=== PATIENT | male | born 1950 | race Caucasian/White ===

== ENCOUNTER 2017-06-22 07:32 | Inpatient (IN) | payer OTHER, MEDICARE, SELFPAY ==
[2017-06-22] VITALS (17 sets, daily range): BP systolic 123–168; BP diastolic 59–125; PULSE 0–116; RESP 16–19; TEMP 36.9–37.3; O2SAT 93–99; BMI 31.8; BMI 30.3
--- NOTE | 2017-06-22 07:39 | CT_ITS ---
STUDY: CT BRAIN WITHOUT CONTRAST REASON FOR EXAM: Male, 67 years old. Right-sided deficits. Prior CVA. Not responsive. RADIATION DOSAGE (If Supplied By Facility): CTDIvol = ( 44.99 ) mGy, DLP = ( 1592.22 ) mGycm TECHNIQUE: Transaxial CT imaging of the brain was performed without administration of intravenous contrast material. Individualized dose optimization techniques were used for this CT. COMPARISON: Comparison is made with prior study dated January 22, 2017. FINDINGS: Normal soft tissue structures. Normal calvarium. There is mild cerebral atrophy with widening of the extra-axial spaces and ventricular dilatation. Stable encephalomalacia involving the left temporal frontal parietal lobes with some mild dilatation of the left ventricle due to the prior stroke and encephalomalacia. This is unchanged. No new abnormality is present. Normal basal ganglia and thalami. Normal brainstem. Normal cerebellum. There is no intracranial hemorrhage. There are no findings of an acute ischemic infarction. Normal visualized paranasal sinuses. CT/Brain/Head without Contrast IMPRESSION: Encephalomalacia involving the left frontal temporal parietal lobes. No acute abnormality is seen. Electronically Signed: Ottoniel Walls MD at 9:10 EST Tel [phone], Service support ,
--- NOTE | 2017-06-22 07:39 | EKG12_ITS ---
Test Reason : NEURO SYM Blood Pressure : / mmHG Vent. Rate : 120 BPM Atrial Rate : 120 BPM P-R Int : 156 ms QRS Dur : 074 ms QT Int : 328 ms P-R-T Axes : 056 039 080 degrees QTc Int : 463 ms Sinus tachycardia with frequent and consecutive Premature ventricular complexes in a pattern of bigem iny Low voltage QRS Abnormal ECG Confirmed by IZAIAH MILLAN, MURIEL ([id number]), website/blog editor RACHELLE PRAKASH ([id number]) on 06/23/2017 1:18:57 PM Referred By: BANDAR Confirmed By:MURIEL BLISS MD
--- NOTE | 2017-06-22 07:39 | RAD_ITS ---
STUDY: X-RAY CHEST REASON FOR EXAM: Male, 67 years old. Prior right-sided CVA. TECHNIQUE: Single AP portable view of the chest. COMPARISON: Comparison is made with prior study dated May 11, 2017. FINDINGS: EKG electrodes are seen. The lungs are clear and expanded. There is no demonstrated pleural abnormality. Normal size heart. Normal mediastinum and brittany. Normal visualized pulmonary arteries. There is atherosclerotic tortuosity of the aortic arch and descending thoracic aorta. There are diffuse degenerative changes of the visualized thoracic spine. Normal visualized ribs, clavicles, and shoulders. There is no demonstrated abnormality of the visualized soft tissue structures of the upper abdomen. RAD/Chest 1 View IMPRESSION: No acute abnormality is seen. Electronically Signed: Ottoniel Walls MD at 9:08 EST Tel [phone], Service support ,
[2017-06-22 07:41] LABS: Bedside Glucose 149 mg/dL (70-110)
[2017-06-22 08:27] LABS: Absolute Lymphocyte Count 1.94 X10^3/ul (0.83-4.51); Absolute Neutrophil Count 9.3 X10^3/uL (2.0-7.7); Basophil# 0.03 X10^3/uL; Basophil% 0.2 % (0-1); Eosinophil# 0.02 X10^3/uL; Eosinophils% 0.2 % (0-5); Hematocrit 43.2 % (40-54); Hemoglobin 14.2 g/dl (13.0-16.5); Lymphocyte # 1.94 X10^3/ul (4.0); Mean Corp Hgb Conc 32.9 g/gl (32-36); Mean Corpuscular Hgb 30.4 pg (27.0-32.0); Mean Corpuscular Volume 92.5 fL (80-94); Mean Platelet Vol. 9.8 fl (6.2-12.0); Monocyte# 0.84 X10^3/uL; Monocyte% 6.9 % (0-10); Neutrophil # 9.28 X10^3/uL (2.7-7.7); Neutrophil % 76.5 % (47-70); Platelet Count 257 K/mm3 (150-450); RBC Distribution Width CV 13.5 % (11.6-14.6); RBC Distribution Width SD 45.7 fl (35.1-43.9); Red Blood Count 4.67 M/mm3 (4.6-6.2); White Blood Count 12.1 K/mm3 (4.4-11.0)
--- NOTE | 2017-06-22 08:31 | ED.VISSUMM ---
- ER Visit Summary Date of Service: 06/22/17 Chief Complaint: New neurologic symptoms History of Present Illness: The patient is a 67 M who presents with questionable new neurologic symptoms. Patient has a history of a stroke and is nonverbal. He has complete flaccid weakness of his right hand side. alf staff noted that today he was having his eyes deviated to the right and that there may be some questionable left arm weakness. His left leg was also twitching. Patient does not contribute much of the history. While I am evaluating the patient he does move his left arm and left leg. Physical Examination: Vital signs are reviewed. HEENT exam reveals that his eyes are looking mostly to the right. However, nursing noted that at one point he did look to the left. He has moist mucous membranes. His pupils are equal. Neck is supple. Heart is tachycardic and regular with multiple PVCs. Lungs are clear to auscultation. Abdomen is soft and nontender. Extremities reveal no edema. Neurologic exam shows that he is nonverbal. He does not cooperate with the exam, mostly from not understanding my instructions. His right side is completely flaccid. He does move his left hand side extemporaneously but not on command. He does have some twitching on the left leg which does appear slightly purposeful. Test Results: EKG is sinus rhythm with many PVCs. Rate is approximately 120. Nonspecific ST-T wave changes noted. Chest x-ray reveals no acute findings. CAT scan of the head reveals encephalomalacia secondary to a stroke. White blood cell count 12.1, glucose 149, troponin normal. Urinalysis does reveal 2+ leukocytes and nitrites. Emergency Department Course and Treatment: Patient was hydrated with fluids and given morphine for pain. He was also given IV Rocephin for UTI Treatment Plan: Family is now at bedside and states that he is not acting normally. I feel that he is having delirium secondary to urinary tract infection. He will be started on antibiotics and admitted to the hospital Disposition: Admit Impression: UTI, delirium This note was generated with [employer] dictation software. It may contain incorrect words, spelling, and punctuation that were not noted in review of the chart prior to signing ED Disposition - Plan for ED Patient: Chief Complaint: Neuro S/Sx Referrals: Marcin Joseph MD [Primary Care Provider] -
[2017-06-22 08:34] LABS: POSITIVE COUNT NO; POSITIVE DIFFERENTIAL NO; POSITIVE MORPHOLOGY NO
--- NOTE | 2017-06-22 08:34 | NURSING ---
BLUE TOP HEMOLIZED
[2017-06-22 08:45] LABS: Anion Gap 10 (5-15); BUN 10 mg/dL (7-18); BUN/Creat Ratio 13.3 RATIO (10-20); Calcium,Total 9.2 mg/dL (8.5-10.1); Chloride 106 mmol/L (98-107); Creatinine, Serum 0.75 mg/dL (0.70-1.30); EST Glomerular Filtration Rate 111 mL/min (>60); Est Glom Filt Rate - Afr Amer 134 mL/min (>60); Estimated Creatinine Clearance 110.97 ml/min; Glucose 149 mg/dL (74-106); Potassium 3.7 mmol/L (3.5-5.1); Sodium Level 141 mmol/L (136-145)
--- NOTE | 2017-06-22 08:50 | ED.RN ---
PT IS UNABLE TO COMMUNICATE VERBALLY. PT ATTEMPTS SPEAKING BUT LANGUAGE IS GARBLED AND MUMBLED AND UNABLE TO BE UNDERSTOOD. PT UNDERSTANDS WAS IS BEING COMMUNICATED TO HIM AND FOLLOWS COMMANDS ABLE.
[2017-06-22 09:15] LABS: Prothrombin Time (Protime)PT. 13.1 SECONDS (11.7-14.9)
[2017-06-22 09:16] LABS: Partial Thromboplast Time 27.2 Seconds (24.1-36.2)
[2017-06-22 10:34] LABS: Color, Urine Yellow (Yellow); Glucose, Dipstick Normal (Normal); Ketone-Dipstick Negative (Negative); Leukocyte Esterase-Dipstick 500 /ul (Negative); Nitrite-Dipstick Positive (Negative); Occult Blood-Urine 50 /ul (Negative); Protein-Dipstick 15 mg/dl (Negative); Specific Gravity, Urine 1.015 (1.002-1.030); Urine Bilirubin Dipstick Negative (Negative); Urine Clarity Cloudy (Clear); Urine Urobilinogen Normal (Normal)
[2017-06-22 10:49] LABS: White Blood Cells >100 SEEN /hpf (0-5)
[2017-06-22 10:50] LABS: Bacteria 4+ /hpf (None Seen); Mucous, Urine 1+ /hpf (<or=2+); Red Blood Cells-Urine 0-5 SEEN /hpf (0-5); Squamous Epithelial Cells - UA 0-5 SEEN /hpf (0-5)
--- NOTE | 2017-06-22 11:04 | NURSING ---
HOSPITALIST FOR DR PORTILLO
--- NOTE | 2017-06-22 11:09 | NURSING ---
126 AMS, DEVIATED RT EYE, R/O STROKE ZACH
[2017-06-22] MEDS: 0.9% Normal Saline 1,000 ML 999 ML IV (11:23)
[2017-06-22] MEDS: Ceftriaxone 1 GM/50 mL Premix x1 IV (11:24)
--- NOTE | 2017-06-22 11:40 | MRI_ITS ---
STUDY: MRI BRAIN WITHOUT CONTRAST REASON FOR EXAM: Male, 67 years old. Mental status change. Probable CVA. TECHNIQUE: Standardized multiplanar fat and water weighted pulse sequences were obtained. COMPARISON: None. FINDINGS: There is mild cerebral atrophy with widening of the extra-axial spaces and moderate ventricular dilatation. There is encephalomalacia involving the left frontal and parietal lobes probably related to old infarct. There is also some encephalomalacia involving the left temporal lobe. There are multiple white matter hyperintensities, distributed throughout the deep white matter tracts of the cerebral hemispheres, consistent with moderate chronic white matter ischemic changes. There is abnormal signal in the left frontal and parietal lobe is probably related to gliosis. There are multiple foci of restricted diffusion within the right frontal and parietal lobes consistent with acute infarcts. These appear to occur in a watershed distribution between the right middle cerebral artery, right anterior cerebral and posterior cerebral arteries. There may also be some restricted diffusion in the left frontal lobe in the previous area of old infarct. Normal T2* images of the brain without demonstrated susceptibility artifact. There is no demonstrated hemosiderin stain. Normal bilateral basal ganglia. Normal thalami. There is no extra-axial fluid accumulation. There is absence of normal flow void within the left cavernous and petrous internal carotid artery suggesting sequela thrombosis. The right-sided cavernous and petrous internal carotid artery are patent. The visualized basilar artery and intracranial vertebral arteries are patent. Normal sella turcica, pituitary gland, infundibular stalk, optic chiasm and hypothalamus. Normal tectal plate and pineal gland. Normal midbrain, nano and medulla. Normal cerebellum. Normal basal cisterns. Normal bilateral temporal bones. Normal bilateral internal auditory canals. No demonstrated orbital abnormality, within the constraints of a routine brain study. Normal visualized paranasal sinuses. Normal calvarium and skull base. Normal visualized soft tissue structures. Normal visualized upper cervical spine. MRI/Brain without Contrast IMPRESSION: 1. Involutional changes of the brain, as described above. 2. Multiple bilateral acute infarcts. 3. Occlusion of left sided petrous and cavernous internal carotid arteries. N.B. : The above information has been verbally conveyed by Mable Karimi MD to Jyoti Platt, RN, Hospital- In-Patient RN, on 06/22/2017 17:37:51 (ET). Electronically Signed: Mable Karimi MD at 17:23 EST , Service support , N.B. : The above information has been verbally conveyed by Mable Karimi MD to Jyoti Platt, RN, Hospital- In-Patient RN, on 06/22/2017 17:37:51 (ET).
--- NOTE | 2017-06-22 12:22 | PCM.HP.STD ---
Problem List (1) Altered mental status, unspecified Status: Acute (2) UTI (urinary tract infection) Status: Acute (3) Chronic left arterial ischemic stroke, MCA (middle cerebral artery) Status: Chronic (4) Global aphasia Status: Chronic (5) Occlusion of left internal carotid artery Status: Chronic (6) Diabetes mellitus type 2 in obese Status: Chronic (7) Hypertension Status: Chronic (8) Hyperlipidemia Status: Chronic (9) Dysphagia Status: Chronic (10) Status post insertion of percutaneous endoscopic gastrostomy (PEG) tube Status: Chronic Comment: 01/[address] Duncan (11) Sleep-disordered breathing Status: Chronic (12) LVH (left ventricular hypertrophy) Status: Chronic (13) Diastolic dysfunction Status: Chronic (14) Influenza A Status: Resolved (15) Influenza B Status: Resolved History of Present Illness Date of Admission: 06/22/17 Chief Complaint: Altered mental status with right-sided deviated eye The patient is a 67 year old M with multiple comorbidities including recent CVA with right-sided weakness in January 2017 was brought in from SNF for altered mental status and eyes gaze was fixed to the right. As per EMS note, glucose was 145. Patient baseline is right-sided weakness, nonverbal noncommunicative. In ED, patient was found semi-above with left leg twitching. UA was positive of pyuria suggestive of UTI. Patient does not have a Mckeon catheter. No history of fever or chills. Patient was tachycardic [address] head shows increased inflammation involving the left frontal temporal parietal lobes but no acute abnormality. [] Past Medical History Past Medical History (Chronic Problems): Chronic Problems Chronic left arterial ischemic stroke, MCA (middle cerebral artery) (Chronic) Global aphasia (Chronic) Occlusion of left internal carotid artery (Chronic) Diabetes mellitus type 2 in obese (Chronic) Hypertension (Chronic) Hyperlipidemia (Chronic) Dysphagia (Chronic) 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 Duncan Sleep-disordered breathing (Chronic) LVH (left ventricular hypertrophy) (Chronic) Diastolic dysfunction (Chronic) Allergies No Known Allergies Allergy (Verified 07/12/13 19:10) Home Medications: Ambulatory Orders Medication Instructions Recorded Aspirin [Aspirin, Baby] 162 mg GT DAILY@0800 tab.chew 01/24/17 Atorvastatin Calcium [Lipitor] 80 mg GT QHS tablet 01/24/17 Acetaminophen 1,000 mg GT TID 05/11/17 Bisacodyl [Laxative Suppository] 10 mg RC DAILY PRN PRN 05/11/17 Gabapentin [Neurontin Solution] 300 mg GT TIDCM 05/11/17 Gemfibrozil [Lopid] 600 mg GT BIDAC 05/11/17 Magnesium Hydroxide [Milk of 30 ml PO DAILY PRN PRN 05/11/17 Magnesia] Mineral Oil 118 ml RC DAILY PRN PRN 05/11/17 Nut.tx.gluc.intoler,Lac-Fr,Soy 1 dose GT BID PRN PRN 05/11/17 [Glucerna 1.5 Juan] Surgical History: - - Patient has a midline incision and after speaking to the brother he has had an abdominal aortic aneurysm repair up at the [facility] in the remote past Psychiatric History: No pertinent psych hx Smoking Status: Never smoker - *Family History Maternal History Items: No pertinent history Paternal History Items: No pertinent history Review of Systems Constitutional: Reports: Weakness. Denies: Chills, Fever HEENT: Denies: Head Aches, Sinus Congestion, Sinus Drainage Cardiovascular: Denies: Chest Pain, Palpitations Respiratory: Denies: Cough, Shortness of breath at rest, Sputum production Gastrointestinal: Denies: Abdominal Pain, Nausea, Vomiting Genitourinary: Denies: Dysuria Skin: Denies: Rash, Wounds Neurological: Reports: Balance problems Psychiatric: Reports: Anxiety, Depression. Denies: Homicidal Ideations, Suicidal Ideations Hematologic/ Lymphatic: Denies: Easy Bruising, Easy Bleeding Unable to obtain accurate/complete ROS d/t: The patient is right-sided weakness and nonverbal as mentioned in HPI VTE Information - Inpt Only VTE Present on Admission: No VTE Mechan Device Prophylaxis: SCD's VTE Pharm Prophylaxis ordered?: Yes Patient Problems: Active and Suspected Problems Altered mental status, unspecified (Acute) UTI (urinary tract infection) (Acute) - Physical Exam General: Confused, Disoriented, Lethargic HEENT: Atraumatic, PERRLA, EOMI, Normocephalic Oral: Dry Mucosa Neck: Supple, No JVD, Negative Carotid Bruits Lungs: Clear to auscultation, No rhonchi, No wheeze, No rales, Diminished Cardiovascular: Normal S1, Normal S2, No murmurs, Irregular Rate, Tachycardic, - - EKG shows pulseless bigeminy Abdomen: Bowel Sounds Present, Soft, Non Tender Extremities: Capillary Refill Less than 3 Seconds, Edema Skin: No rashes, No breakdown Musculoskeletal: No Tenderness to Palpation of Joints or Extremities, Arthritic Changes, Muscle Wasting Neurological: Cranial nerves II-XII grossly intact, - - Right-sided weakness. Muscle rigidity and contractures in the right upper and lower extremity major joints. non Verbal/noncommunicative. Psych/Mental Status: Normal Affect, Appropriate Vital Signs Temp Pulse Resp BP Pulse Ox 98.8 F 100 16 168/86 H 93 06/22/17 11:53 06/22/17 11:53 06/22/17 11:53 06/22/17 11:53 06/22/17 11:53 Oxygen Delivery Method Room Air Weight: 228 lb 13.437 oz Body Mass Index (BMI) 30.3 Laboratory Tests Past 24 Hrs 06/22/17 11:55 Troponin I Pending TSH Pending Assessment/Plan Active and Suspected Problems Altered mental status, unspecified (Acute) UTI (urinary tract infection) (Acute) The patient is a 67 year old M with multiple comorbidities including recent CVA with right-sided weakness in January 2017 was brought in from SNF for altered mental status and eyes gaze was fixed to the right. As per EMS note, glucose was 145. Patient baseline is right-sided weakness, nonverbal noncommunicative. In ED, patient was found semi-above with left leg twitching. UA was positive of pyuria suggestive of UTI. Patient does not have a Mckeon catheter. No history of fever or chills. Patient was tachycardic [address] head shows increased inflammation involving the left frontal temporal parietal lobes but no acute abnormality. 1. Altered mental status, possible due to infectious/metabolic encephalopathy: The patient is being admitted on the monitored bed. MRI brain ordered to rule out any new stroke although clinical patient is very low. Neurology consult. On IV fluid normal saline. IV ceftriaxone. Neurology consult. Neurochecks. PT/OT and speech/swallow evaluation. Keep the patient n.p.o except medications. 2. SIRS (tachycardia and leukocytosis) possible related to sepsis due to UTI: Patient is started on IV ceftriaxone as mentioned above. Urine culture ordered. Lactic acid ordered. 3. Recent history of left ischemic, MCA stroke with right-sided deficit and aphasia: Patient has PEG tube. As per the family member, patient eats by mouth and you just picked to for medication. Carotid Doppler is ordered. 4. Diabetes mellitus type II in obese: Accu-Chek every 6 hourly with NovoLog sliding scale. A1c tomorrow a.m. Other chronic comorbidities include peripheral arterial disease, occlusion of left internal carotid artery, hypertension, dyslipidemia, dysphagia, PEG tube, possible obstructive sleep apnea, LVH, chronic diastolic heart failure: Patient had echo in January 2017 which shows mild concentric LVH, EF 65% with a stage I diastolic dysfunction. No regional wall motion abnormality. Normal size and systolic function of right ventricle. No interatrial shunt/PFO found. Advance CARE directives: Discussed with the patient's brother, Mr. Burke Blakely who is his legal guardian and power of document review attorney for health regarding advanced directive. Patient is not a living will but his brother has talked to him in the past and he wished DNR CC arrest with no artificial machine support or chest compression in case of cardiorespiratory arrest. He is good for oxygen through mask or BiPAP. About 20 minutes spent on the discussion regarding advanced care directive. Clinical Impression(s) from Imaging Studies Brain CT 06/22/17 07:39 IMPRESSION: Encephalomalacia involving the left frontal temporal parietal lobes. No acute abnormality is seen. Electronically Signed: Ottoniel Walls MD at 9:10 EST Tel [phone], Service support , Chest X-Ray 06/22/17 07:39 IMPRESSION: No acute abnormality is seen. Electronically Signed: Ottoniel Walls MD at 9:08 EST Tel [phone], Service support , Code Visit Inpatient E&M: 26068 Init Hosp L3 Procedures: 43440 Advncd Care Plan 30 Min
[2017-06-22 12:31] LABS: Thyroid Stim Hormone (TSH) 1.38 uIU/mL (0.358-3.74)
--- NOTE | 2017-06-22 12:41 | HP.PCM_ITS ---
Problem List (1) Altered mental status, unspecified Status: Acute (2) UTI (urinary tract infection) Status: Acute (3) Chronic left arterial ischemic stroke, MCA (middle cerebral artery) Status: Chronic (4) Global aphasia Status: Chronic (5) Occlusion of left internal carotid artery Status: Chronic (6) Diabetes mellitus type 2 in obese Status: Chronic (7) Hypertension Status: Chronic (8) Hyperlipidemia Status: Chronic (9) Dysphagia Status: Chronic (10) Status post insertion of percutaneous endoscopic gastrostomy (PEG) tube Status: Chronic Comment: 01/[address] Duncan (11) Sleep-disordered breathing Status: Chronic (12) LVH (left ventricular hypertrophy) Status: Chronic (13) Diastolic dysfunction Status: Chronic (14) Influenza A Status: Resolved (15) Influenza B Status: Resolved History of Present Illness Date of Admission: 06/22/17 Chief Complaint: Altered mental status with right-sided deviated eye The patient is a 67 year old M with multiple comorbidities including recent CVA with right-sided weakness in January 2017 was brought in from SNF for altered mental status and eyes gaze was fixed to the right. As per EMS note, glucose was 145. Patient baseline is right-sided weakness, nonverbal noncommunicative. In ED, patient was found semi-above with left leg twitching. UA was positive of pyuria suggestive of UTI. Patient does not have a Mckeon catheter. No history of fever or chills. Patient was tachycardic [address] head shows increased inflammation involving the left frontal temporal parietal lobes but no acute abnormality. [] Past Medical History Past Medical History (Chronic Problems): Chronic Problems Chronic left arterial ischemic stroke, MCA (middle cerebral artery) (Chronic) Global aphasia (Chronic) Occlusion of left internal carotid artery (Chronic) Diabetes mellitus type 2 in obese (Chronic) Hypertension (Chronic) Hyperlipidemia (Chronic) Dysphagia (Chronic) Status post insertion of percutaneous endoscopic gastrostomy (PEG) tube (Chronic ) 01/[address] Duncan Sleep-disordered breathing (Chronic) LVH (left ventricular hypertrophy) (Chronic) Diastolic dysfunction (Chronic) Allergies No Known Allergies Allergy (Verified 07/12/13 19:10) Home Medications: Ambulatory Orders Medication Instructions Recorded Aspirin [Aspirin, Baby] 162 mg GT DAILY@0800 tab.chew 01/24/17 Atorvastatin Calcium [Lipitor] 80 mg GT QHS tablet 01/24/17 Acetaminophen 1,000 mg GT TID 05/11/17 Bisacodyl [Laxative Suppository] 10 mg RC DAILY PRN PRN 05/11/17 Gabapentin [Neurontin Solution] 300 mg GT TIDCM 05/11/17 Gemfibrozil [Lopid] 600 mg GT BIDAC 05/11/17 Magnesium Hydroxide [Milk of 30 ml PO DAILY PRN PRN 05/11/17 Magnesia] Mineral Oil 118 ml RC DAILY PRN PRN 05/11/17 Nut.tx.gluc.intoler,Lac-Fr,Soy 1 dose GT BID PRN PRN 05/11/17 [Glucerna 1.5 Juan] Surgical History: - - Patient has a midline incision and after speaking to the brother he has had an abdominal aortic aneurysm repair up at the [facility] in the remote past Psychiatric History: No pertinent psych hx Smoking Status: Never smoker - *Family History Maternal History Items: No pertinent history Paternal History Items: No pertinent history Review of Systems Constitutional: Reports: Weakness. Denies: Chills, Fever HEENT: Denies: Head Aches, Sinus Congestion, Sinus Drainage Cardiovascular: Denies: Chest Pain, Palpitations Respiratory: Denies: Cough, Shortness of breath at rest, Sputum production Gastrointestinal: Denies: Abdominal Pain, Nausea, Vomiting Genitourinary: Denies: Dysuria Skin: Denies: Rash, Wounds Neurological: Reports: Balance problems Psychiatric: Reports: Anxiety, Depression. Denies: Homicidal Ideations, Suicidal Ideations Hematologic/ Lymphatic: Denies: Easy Bruising, Easy Bleeding Unable to obtain accurate/complete ROS d/t: The patient is right-sided weakness and nonverbal as mentioned in HPI VTE Information - Inpt Only VTE Present on Admission: No VTE Mechan Device Prophylaxis: SCD's VTE Pharm Prophylaxis ordered?: Yes Patient Problems: Active and Suspected Problems Altered mental status, unspecified (Acute) UTI (urinary tract infection) (Acute) - Physical Exam General: Confused, Disoriented, Lethargic HEENT: Atraumatic, PERRLA, EOMI, Normocephalic Oral: Dry Mucosa Neck: Supple, No JVD, Negative Carotid Bruits Lungs: Clear to auscultation, No rhonchi, No wheeze, No rales, Diminished Cardiovascular: Normal S1, Normal S2, No murmurs, Irregular Rate, Tachycardic, - - EKG shows pulseless bigeminy Abdomen: Bowel Sounds Present, Soft, Non Tender Extremities: Capillary Refill Less than 3 Seconds, Edema Skin: No rashes, No breakdown Musculoskeletal: No Tenderness to Palpation of Joints or Extremities, Arthritic Changes, Muscle Wasting Neurological: Cranial nerves II-XII grossly intact, - - Right-sided weakness. Muscle rigidity and contractures in the right upper and lower extremity major joints. non Verbal/noncommunicative. Psych/Mental Status: Normal Affect, Appropriate Vital Signs Temp Pulse Resp BP Pulse Ox 98.8 F 100 16 168/86 H 93 06/22/17 11:53 06/22/17 11:53 06/22/17 11:53 06/22/17 11:53 06/22/17 11:53 Oxygen Delivery Method Room Air Weight: 228 lb 13.437 oz Body Mass Index (BMI) 30.3 Laboratory Tests Past 24 Hrs 06/22/17 11:55 Troponin I Pending TSH Pending Assessment/Plan Active and Suspected Problems Altered mental status, unspecified (Acute) UTI (urinary tract infection) (Acute) The patient is a 67 year old M with multiple comorbidities including recent CVA with right-sided weakness in January 2017 was brought in from SNF for altered mental status and eyes gaze was fixed to the right. As per EMS note, glucose was 145. Patient baseline is right-sided weakness, nonverbal noncommunicative. In ED, patient was found semi-above with left leg twitching. UA was positive of pyuria suggestive of UTI. Patient does not have a Mckeon catheter. No history of fever or chills. Patient was tachycardic [address] head shows increased inflammation involving the left frontal temporal parietal lobes but no acute abnormality. 1. Altered mental status, possible due to infectious/metabolic encephalopathy: The patient is being admitted on the monitored bed. MRI brain ordered to rule out any new stroke although clinical patient is very low. Neurology consult. On IV fluid normal saline. IV ceftriaxone. Neurology consult. Neurochecks. PT/OT and speech/swallow evaluation. Keep the patient n.p.o except medications. 2. SIRS (tachycardia and leukocytosis) possible related to sepsis due to UTI: Patient is started on IV ceftriaxone as mentioned above. Urine culture ordered. Lactic acid ordered. 3. Recent history of left ischemic, MCA stroke with right-sided deficit and aphasia: Patient has PEG tube. As per the family member, patient eats by mouth and you just picked to for medication. Carotid Doppler is ordered. 4. Diabetes mellitus type II in obese: Accu-Chek every 6 hourly with NovoLog sliding scale. A1c tomorrow a.m. Other chronic comorbidities include peripheral arterial disease, occlusion of left internal carotid artery, hypertension, dyslipidemia, dysphagia, PEG tube, possible obstructive sleep apnea, LVH, chronic diastolic heart failure: Patient had echo in January 2017 which shows mild concentric LVH, EF 65% with a stage I diastolic dysfunction. No regional wall motion abnormality. Normal size and systolic function of right ventricle. No interatrial shunt/PFO found. Advance CARE directives: Discussed with the patient's brother, Mr. Burke Blakely who is his legal guardian and power of sports attorney for health regarding advanced directive. Patient is not a living will but his brother has talked to him in the past and he wished DNR CC arrest with no artificial machine support or chest compression in case of cardiorespiratory arrest. He is good for oxygen through mask or BiPAP. About 20 minutes spent on the discussion regarding advanced care directive. Clinical Impression(s) from Imaging Studies Brain CT 06/22/17 07:39 IMPRESSION: Encephalomalacia involving the left frontal temporal parietal lobes. No acute abnormality is seen. Electronically Signed: Ottoniel Walls MD at 9:10 EST Tel [phone], Service support , Chest X-Ray 06/22/17 07:39 IMPRESSION: No acute abnormality is seen. Electronically Signed: Ottoniel Walls MD at 9:08 EST Tel [phone], Service support , Code Visit Inpatient E&M: 51908 Init Hosp L3 Procedures: 52406 Advncd Care Plan 30 Min
[2017-06-22] MEDS: Atorvastatin Calcium 80 MG Tablet GT (13:53)
[2017-06-22] MEDS: Aspirin 300 MG Suppository RECTAL (13:53)
[2017-06-22] MEDS: Enoxaparin 40 MG/0.4 ML Syringe SC (13:53)
[2017-06-22] MEDS: 0.9% Normal Saline 1,000 ML 100 ML IV ×2 (13:54→22:27)
[2017-06-22 14:16] LABS: Bedside Glucose 128 mg/dL (70-110)
[2017-06-22] MEDS: LORazepam 2 MG/ML Syringe 1 MG IV (15:30)
--- NOTE | 2017-06-22 15:42 | CHAPLAIN ---
patient and bed were out of the room; left a calling card
--- NOTE | 2017-06-22 16:07 | CASEMGMT ---
Social Work Notified that pt was admitted from [place]. Pt currently out of the room. Phone call placed to pt brother who states d/c plan is for pt to return to [place]. SW will continue to follow for SNF placement. CAREN Cadena
--- NOTE | 2017-06-22 16:30 | CON.PCM_ITS ---
Problem List (1) Altered mental status, unspecified Status: Acute Qualifiers: Altered mental status type: unspecified Qualified Code(s): R41.82 - Altered mental status, unspecified Reason for Consult Date of Consultation: 06/22/17 Reason for Consultation: AMS History of Present Illness: The patient is a 67 year old CM NHR with PMH HTN. HLD, DM, recent Left MCA stroke with Left ICA occlusion with residual right sided weakness, global aphasia, NIMO , recent hospitalization with influenza admitted with AMS. History is obtained from medical records and documentation. History could not be obtained from the patient due to global aphasia. Per documentation patient is being admitted with AMS, was found to have right sided eye deviation, per ED documentation he was told to have left arm weakness and left leg twitching per NH. At present there is no documentation of KNOWLES, fever, new onset focal motor weakness or sensory loss. Found to have UTI on admission. [] Past Medical History Past Medical History (Chronic Problems): Chronic Problems Chronic left arterial ischemic stroke, MCA (middle cerebral artery) (Chronic) Global aphasia (Chronic) Occlusion of left internal carotid artery (Chronic) Diabetes mellitus type 2 in obese (Chronic) Hypertension (Chronic) Hyperlipidemia (Chronic) Dysphagia (Chronic) Status post insertion of percutaneous endoscopic gastrostomy (PEG) tube (Chronic ) 01/[address] Duncan Sleep-disordered breathing (Chronic) LVH (left ventricular hypertrophy) (Chronic) Diastolic dysfunction (Chronic) Allergies No Known Allergies Allergy (Verified 07/12/13 19:10) Home Medications: Ambulatory Orders Medication Instructions Recorded Aspirin [Aspirin, Baby] 162 mg GT DAILY@0800 tab.chew 01/24/17 Atorvastatin Calcium [Lipitor] 80 mg GT QHS tablet 01/24/17 Acetaminophen 1,000 mg GT TID 05/11/17 Bisacodyl [Laxative Suppository] 10 mg RC DAILY PRN PRN 05/11/17 Gabapentin [Neurontin Solution] 300 mg GT TIDCM 05/11/17 Gemfibrozil [Lopid] 600 mg GT BIDAC 05/11/17 Magnesium Hydroxide [Milk of 30 ml PO DAILY PRN PRN 05/11/17 Magnesia] Mineral Oil 118 ml RC DAILY PRN PRN 05/11/17 Nut.tx.gluc.intoler,Lac-Fr,Soy 1 dose GT BID PRN PRN 05/11/17 [Glucerna 1.5 Juan] Surgical History: - - Patient has a midline incision and after speaking to the brother he has had an abdominal aortic aneurysm repair up at the [facility] in the remote past Psychiatric History: No pertinent psych hx Smoking Status: Former smoker - *Family History Maternal History Items: No pertinent history Paternal History Items: No pertinent history Review of Systems Constitutional: Reports: - - could not be obtained since patient has global aphasia - Physical Exam General: - - awake HEENT: Atraumatic, PERRLA, EOMI, Normocephalic Neck: Supple, No JVD, Negative Carotid Bruits Lungs: Clear to auscultation, Normal air movement Cardiovascular: Regular rate Abdomen: Bowel Sounds Present, Soft, Non Tender Extremities: No edema, Capillary Refill Less than 3 Seconds Musculoskeletal: No Tenderness to Palpation of Joints or Extremities Neurological: - - awake, with global aphasia, limited Neurology examination, right gaze preference, pupils BERL, moves Left UE/LE spontaneuously, right UE/ LE flaccid, Plantars Right extensor/left flexor, sensory/cerebellar/gait could not be assessed, Reflexes + B/L B/S/T/K/A. Psych/Mental Status: - - could not be assessed Vital Signs Temp Pulse Resp BP Pulse Ox 98.6 F 64 18 152/78 H 97 06/22/17 13:39 06/22/17 13:39 06/22/17 13:39 06/22/17 13:39 06/22/17 13:39 Oxygen Flow Rate 2 Oxygen Delivery Method Nasal Cannula Weight: 103.8 kg Body Mass Index (BMI) 30.3 Intake and Output for Last 24 Hours 06/20/17 06/21/17 06/22/17 23:59 23:59 23:59 Intake Total 0 / 0 Balance 0 / 0 Laboratory Tests Past 24 Hrs 06/22/17 11:55 Troponin I 0.02 TSH 1.38 POC Glucose 06/22/17 14:02 POC Glucose 128 H Assessment/Plan The patient is a 67 year old CM NHR with PMH HTN. HLD, DM, recent Left MCA stroke with Left ICA occlusion with residual right sided weakness, global aphasia, NIMO , recent hospitalization with influenza admitted with AMS. History is obtained from medical records and documentation. History could not be obtained from the patient due to global aphasia. Per documentation patient is being admitted with AMS, was found to have right sided eye deviation, per ED documentation he was told to have left arm weakness and left leg twitching per NH. At present there is no documentation of KNOWLES, fever, new onset focal motor weakness or sensory loss. Found to have UTI on admission. Impression Metabolic Encephalopathy R/O Right MCA stroke R/O seizures Plan -On ASA and Lipitor -Recommend loading with Keppra 1 g IV once then start Keppra 750 mg BID -Await MRI brain -If MRI brain shows stroke, then will do stroke w/u -Recommend EEG -Avoid hypotension -Further UTI management per primary team -GI/DVT prophylaxis -PT/OT/ST -Please call with questions if any -Thank you for allowing us to participate in patients care and management I spent 60 minutes taking history, doing physical examination, reviewing medical records, as well as coordinating care Code Visit Inpatient E&M: 61768 Init Hosp L3
[2017-06-22 18:01] LABS: Bedside Glucose 122 mg/dL (70-110)
--- NOTE | 2017-06-22 18:12 | CT_ITS ---
STUDY: CTA OF THE BRAIN REASON FOR EXAM: Male, 67 years old. CVA RADIATION DOSAGE (If Supplied By Facility): CTDIvol = ( 22.61 ) mGy, DLP = ( 748.46 ) mGycm TECHNIQUE: CT angiography was performed with a multi-detector CT scanner. Data acquisition was obtained from the skull base through the vertex following intravenous administration of ml of . MIP images were reconstructed from the axial data set. Post-processing of the angiographic images was performed, with multiplanar reformation and 3D reconstruction. Individualized dose optimization techniques were used for this CT. COMPARISON: None. FINDINGS: Normal right petrous carotid. Nonvisualization of left petrous consistent with proximal occlusion. Normal right cavernous carotid artery with a normal supraclinoid bifurcation. Apparent occlusion or high-grade stenosis of the left cavernous carotid artery with a reconstituted supraclinoid bifurcation. Normal right A1 segments of the anterior cerebral artery. Normal left A1 segments of the anterior cerebral artery. Anterior communicating artery not visualized consistent with normal variant. Normal bilateral A2 segments of the anterior cerebral arteries. Normal right M1 and M2 segments of the middle cerebral arteries, with a normal M1 bifurcation. High-grade stenosis of the proximal left M1 with reduced flow in the M2 segment and nonvisualization of the main sylvian branch however there does appear to be small perisylvian branches likely due to collateral circulation Posterior communicating arteries are not visualized consistent with normal developmental variant. Normal bilateral vertebral arteries. Normal basilar artery with a normal basilar bifurcation. The visualized bilateral superior cerebellar (SCA) arteries are normal. Normal bilateral P1, P2 and visualized P3 segments of the posterior cerebral arteries. There is no demonstrated aneurysm of the mo[place] of [place]. There is no demonstrated abnormality of the visualized brain. CT/CTA Head W/WO Contrast IMPRESSION: High-grade segmental stenosis of the proximal M1 segment of the left middle cerebral artery with reduced flow in the M2 and sylvian branches Other findings as above Electronically Signed: Percy Guzman MD at 21:57 EST , Service support ,
--- NOTE | 2017-06-22 18:12 | CT_ITS ---
CTA head and Neck WO/W Contrast INDICATION: CVA, CHRONIC MCA INFARCT COMPARISON: None TECHNIQUE: High-resolution axial CT imaging of the head and neck during intravenous contrast administration, CTA protocol. Coronal, sagittal, MIP reformatted images are obtained. Radiation dose of dilatation technique and NASCET criteria are applied. 100 mL of Isovue-370 were given intravenously. FINDINGS: CTA neck: There is soft and calcific arteriosclerotic plaque formation and the aortic arch. There is normal origin of the great vessels from the aortic arch. The common carotid arteries are normal and symmetric. There is predominantly soft arteriosclerotic plaque formation noted at the carotid bifurcations with short segment high-grade stenosis at the origin of the right internal carotid artery with caliber of the proximal right internal carotid artery at its origin of less than 1 mm. There is complete occlusion of the left internal carotid artery from its origin. Posterior circulation demonstrates codominant vertebral arteries and normal confluence to the basilar artery. CTA head: There is no significant enhancement in the left cavernous carotid artery. There is reconstitution of flow at the supraclinoid portion of the left internal carotid artery with symmetric supply to the anterior cerebral arteries. Supply to the left middle cerebral artery and its branching vessels is thready with evidence of a large left MCA territory encephalomalacia. There is no significant arteriosclerotic plaque or luminal narrowing at the right cavernous carotid artery and normal supply to the right middle cerebral artery and its branching vessels. The basilar artery is unremarkable and gives rise to both posterior cerebral arteries. IMPRESSION: Complete occlusion of the left internal carotid artery from its origin. Short segment high-grade stenosis/near complete occlusion at the origin of the right internal carotid artery. Interventional/surgical consultation recommended. Thready flow in the left middle cerebral artery and branching vessels associated with large left MCA territory infarct. at 2031 Reported and signed by: Alana Ortiz MD N.B. : The above information has been verbally conveyed by Alana Ortiz MD to Meka Mueller, EVITA, Hospital- In-Patient RN, on 06/22/2017 20:46:09 (ET). Electronically Signed: Alana Ortiz MD at 19:29 EST Tel , Service support , CTA head and Neck WO/W Contrast INDICATION: CVA, CHRONIC MCA INFARCT COMPARISON: None TECHNIQUE: High-resolution axial CT imaging of the head and neck during intravenous contrast administration, CTA protocol. Coronal, sagittal, MIP reformatted images are obtained. Radiation dose of dilatation technique and NASCET criteria are applied. 100 mL of Isovue-370 were given intravenously. FINDINGS: CTA neck: There is soft and calcific arteriosclerotic plaque formation and the aortic arch. There is normal origin of the great vessels from the aortic arch. The common carotid arteries are normal and symmetric. There is predominantly soft arteriosclerotic plaque formation noted at the carotid bifurcations with short segment high-grade stenosis at the origin of the right internal carotid artery with caliber of the proximal right internal carotid artery at its origin of less than 1 mm. There is complete occlusion of the left internal carotid artery from its origin. Posterior circulation demonstrates codominant vertebral arteries and normal confluence to the basilar artery. CTA head: There is no significant enhancement in the left cavernous carotid artery. There is reconstitution of flow at the supraclinoid portion of the left internal carotid artery with symmetric supply to the anterior cerebral arteries. Supply to the left middle cerebral artery and its branching vessels is thready with evidence of a large left MCA territory encephalomalacia. There is no significant arteriosclerotic plaque or luminal narrowing at the right cavernous carotid artery and normal supply to the right middle cerebral artery and its branching vessels. The basilar artery is unremarkable and gives rise to both posterior cerebral arteries. CT/CTA Neck W/WO Contrast IMPRESSION: Complete occlusion of the left internal carotid artery from its origin. Short segment high-grade stenosis/near complete occlusion at the origin of the right internal carotid artery. Interventional/surgical consultation recommended. Thready flow in the left middle cerebral artery and branching vessels associated with large left MCA territory infarct. at 2031 Reported and signed by: Alana Ortiz MD N.B. : The above information has been verbally conveyed by Alana Ortiz MD to Meka Ervin, RN, Hospital- In-Patient RN, on 06/22/2017 20:46:09 (ET). Electronically Signed: Alana Ortiz MD at 19:29 EST Tel , Service support , N.B. : The above information has been verbally conveyed by Alana Ortiz MD to Meka Mueller, RN, Hospital- In-Patient RN, on 06/22/2017 20:46:09 (ET).
[2017-06-22] MEDS: Clopidogrel Bisulfate 75 MG Tablet GT (19:06)
--- NOTE | 2017-06-22 21:00 | NURSING ---
2100 [facility] UNABLE TO ASSES MANY OF THE RICHARDSON DUE TO PATIENTS LACK OF RESPONSE. PT RESPONDS ONLY MILDLY TO STIMULATION OF PAIN WITH SENSATION WITH FEET.
[2017-06-22 22:51] LABS: Bedside Glucose 133 mg/dL (70-110)
[2017-06-23] VITALS (10 sets, daily range): BP systolic 112–147; BP diastolic 10–100; PULSE 81–106; RESP 16–18; TEMP 36.7–37.2; O2SAT 94–98
--- NOTE | 2017-06-23 05:19 | NURSING ---
Pt using left arm and left leg in sleep. However, still not arousable. Unable to assess eyes at all. Pt will not open or keep open. Only rousable to painful stimuli.
[2017-06-23 05:57] LABS: Absolute Lymphocyte Count 2.18 X10^3/ul (0.83-4.51); Absolute Neutrophil Count 6.1 X10^3/uL (2.0-7.7); Basophil# 0.04 X10^3/uL; Basophil% 0.4 % (0-1); Eosinophil# 0.05 X10^3/uL; Eosinophils% 0.5 % (0-5); Hematocrit 40.8 % (40-54); Hemoglobin 13.6 g/dl (13.0-16.5); Lymphocyte # 2.18 X10^3/ul (4.0); Lymphocyte % 23.1 % (19-41); Mean Corp Hgb Conc 33.3 g/gl (32-36); Mean Corpuscular Hgb 31.2 pg (27.0-32.0); Mean Corpuscular Volume 93.6 fL (80-94); Mean Platelet Vol. 9.8 fl (6.2-12.0); Monocyte# 1.02 X10^3/uL; Monocyte% 10.8 % (0-10); Neutrophil # 6.12 X10^3/uL (2.7-7.7); Platelet Count 273 K/mm3 (150-450); RBC Distribution Width CV 13.5 % (11.6-14.6); RBC Distribution Width SD 44.9 fl (35.1-43.9); Red Blood Count 4.36 M/mm3 (4.6-6.2); White Blood Count 9.4 K/mm3 (4.4-11.0)
[2017-06-23 05:58] LABS: POSITIVE COUNT NO; POSITIVE DIFFERENTIAL NO; POSITIVE MORPHOLOGY NO
[2017-06-23] MEDS: Enoxaparin 40 MG/0.4 ML Syringe SC (06:01)
[2017-06-23 06:14] LABS: Anion Gap 8 (5-15); BUN 7 mg/dL (7-18); BUN/Creat Ratio 10.1 RATIO (10-20); Calcium,Total 8.7 mg/dL (8.5-10.1); Chloride 107 mmol/L (98-107); Cholesterol 203 mg/dL (200); Creatinine, Serum 0.69 mg/dL (0.70-1.30); EST Glomerular Filtration Rate 122 mL/min (>60); Est Glom Filt Rate - Afr Amer 148 mL/min (>60); Estimated Creatinine Clearance 117.15 ml/min; Glucose 145 mg/dL (74-106); High Density Lipoprotein 34 mg/dL; Sodium Level 143 mmol/L (136-145); Triglycerides 202 mg/dL; Very Low Density Lipoprotein 40 mg/dL (5-40)
[2017-06-23] MEDS: 0.9% Normal Saline 1,000 ML 100 ML IV (06:25)
[2017-06-23 07:05] LABS: Bedside Glucose 75 mg/dL (70-110)
[2017-06-23 08:08] LABS: Hemoglobin A1c 7.3 % (4.2-6.3)
[2017-06-23] MEDS: Aspirin 325 MG Tablet GT (08:31)
--- NOTE | 2017-06-23 08:38 | PCM.PN.HOSP ---
Subjective: Seen and examined. Patient is still confused, disoriented,; semi-conscious; not opening eyes. Patient also sometimes have involuntary movement of lower extremities Vitals/I&O's: Vital Signs Temp Pulse Resp BP Pulse Ox 98.7 F 94 18 134/100 H 98 06/23/17 08:05 06/23/17 08:05 06/23/17 08:05 06/23/17 08:05 06/23/17 08:05 Oxygen Flow Rate 2 Oxygen Delivery Method Nasal Cannula Weight: 228 lb 13.437 oz Body Mass Index (BMI) 30.3 Intake and Output for Last 24 Hours 06/21/17 06/22/17 06/23/17 23:59 23:59 23:59 Intake Total 362 / 362 1191 / 1191 Balance 362 / 362 1191 / 1191 General: Lethargic, - - Eyes closed.; Semi-conscious HEENT: PERRLA, Normocephalic, - - Pupils seem slightly dilated Oral: Dry Mucosa Neck: Supple, No JVD, Negative Carotid Bruits Lungs: No rhonchi, Diminished, - - Coarse upper resp wheezing sound Cardiovascular: Regular rate, Normal S1, Normal S2, No murmurs, Irregular Rate, - - Multiple PVCs Abdomen: Bowel Sounds Present, Soft, Non Tender Extremities: Edema Musculoskeletal: Arthritic Changes, Muscle Wasting Neurological: - - Muscle rigidity present on the bilateral lower extremities, more on right lower extremity. Plantar reflex equivocal. Bilateral knees jerk; hyper 3+/4 Laboratory Results 06/22/17 11:55: Troponin I 0.02, TSH 1.38 06/22/17 14:02: POC Glucose 128 H 06/22/17 17:37: POC Glucose 122 H 06/22/17 22:20: POC Glucose 133 H 06/23/17 05:39: Sodium 143, Potassium 4.0, Chloride 107, Carbon Dioxide 28.0, Anion Gap 8, BUN 7, Creatinine 0.69 L, Estim Creat Clear Calc 117.15, Est GFR (MDRD) Af Amer 148, Est GFR (MDRD) Non-Af 122, BUN/Creatinine Ratio 10.1, Glucose 145 H, Calcium 8.7, Triglycerides 202 H, Cholesterol 203 H, LDL Cholesterol 129, VLDL Cholesterol 40, HDL Cholesterol 34 L 06/23/17 05:39: WBC 9.4, RBC 4.36 L, Hgb 13.6, Hct 40.8, MCV 93.6, MCH 31.2, MCHC 33.3, RDW 13.5, RDW Differential 44.9 H, Plt Count 273, MPV 9.8, Immature Gran % (Auto) 0.200, Neut % (Auto) 65.0, Lymph % (Auto) 23.1, [place] % (Auto) 10.8 H, Eos % (Auto) 0.5, Baso % (Auto) 0.4, Absolute Neuts (auto) 6.1, Absolute Lymphs (auto) 2.18, Total Counted Not Reportable 06/23/17 05:39: Hemoglobin A1c 7.3 H 06/23/17 06:23: POC Glucose 75 Current Medications Aspirin (Aspirin) 325 mg GT DAILY@0800 REPLACED BY [facility] Atorvastatin Calcium (Lipitor) 80 mg GT DAILY REPLACED BY [facility] Last Admin: 06/22/17 13:53 Dose: 80 mg Clopidogrel Bisulfate (Plavix) 75 mg GT DAILY REPLACED BY [facility] Last Admin: 06/22/17 19:06 Dose: 75 mg Dextrose (D50w Syringe) 0 gm IV X1 PRN; Protocol PRN Reason: Hypoglycemia Enoxaparin Sodium (Lovenox) 40 mg SC DAILY@0600 REPLACED BY [facility] Last Admin: 06/23/17 06:01 Dose: 40 mg Glucagon () 1 mg IM .X1 PRN PRN Reason: Hypoglycemia Sodium Chloride () 1,000 mls @ 100 mls/hr IV .Q10H REPLACED BY [facility] Last Admin: 06/23/17 06:25 Dose: 100 mls/hr Ceftriaxone Sodium (Rocephin) 1 gm in 50 mls @ 100 mls/hr IV DAILY REPLACED BY [facility] Levetiracetam 750 mg/ N/A 150 mls @ 600 mls/hr IV Q12 REPLACED BY [facility] Last Admin: 06/22/17 22:27 Dose: 600 mls/hr Insulin Aspart (Novolog Flexpen (Bkc)) 0 units SC Q6 [facility] PRN Reason: Protocol Last Admin: 06/23/17 06:37 Dose: Not Given Morphine Sulfate (Morphine) 2 mg IV Q4H PRN PRN PRN Reason: SEVERE PAIN (6-10/10) Last Admin: 06/22/17 14:45 Dose: 2 mg Sodium Chloride () 5 - 30 ml IV UD PRN PRN Reason: SALINE FLUSH Assessment/Plan The patient is a 67 year old M with multiple comorbidities including recent CVA with right-sided weakness in January 2017 was brought in from SNF for altered mental status and eyes gaze was fixed to the right. As per EMS note, glucose was 145. Patient baseline is right-sided weakness, nonverbal noncommunicative. In ED, patient was found semi-above with left leg twitching. UA was positive of pyuria suggestive of UTI. Patient does not have a Mckeon catheter. No history of fever or chills. Patient was tachycardic [address] head shows increased inflammation involving the left frontal temporal parietal lobes but no acute abnormality. 1. Altered mental status, multifactorial from large stroke/infectious, metabolic encephalopathy with question of possible seizure in view of previous large left ischemic infarct: The patient is being admitted on the monitored bed. MRI brain reported as multiple bilateral acute infarct with near complete occlusion of left ICA and occlusion of left-sided petrous and cavernous part of ICA. CT angiogram of brain shows High-grade segmental stenosis of the proximal M1 segment of the left middle cerebral artery with reduced flow in the M2 and sylvian branches. Neurology consult appreciated and discussed. Earlier, the neurologist advised ARLENE but patient seems very high risk sedation as the patient has decreased awareness/alertness, lethargic and semi-conscious and seems would likely need to be intubated for ARLENE and further on ventilator but later on it was concluded that she does not need it.. In meantime, continue aspirin, Plavix, atorvastatin and other medications. PT/OT and speech/swallow evaluation. Keep the patient n.p.o except medications. 2. SIRS (tachycardia and leukocytosis) possible related to sepsis due to UTI: Patient is started on IV ceftriaxone as mentioned above. Urine culture ordered. Lactic acid ordered. 3. Recent history of left ischemic, MCA stroke with right-sided deficit and aphasia: Patient has PEG tube. As per the family member, patient eats by mouth and you just picked to for medication. Carotid Doppler is ordered. 4. Diabetes mellitus type II in obese: Accu-Chek every 6 hourly with NovoLog sliding scale. A1c tomorrow a.m. Other chronic comorbidities include peripheral arterial disease, occlusion of left internal carotid artery, hypertension, dyslipidemia, dysphagia, PEG tube, possible obstructive sleep apnea, LVH, chronic diastolic heart failure: Patient had echo in January 2017 which shows mild concentric LVH, EF 65% with a stage I diastolic dysfunction. No regional wall motion abnormality. Normal size and systolic function of right ventricle. No interatrial shunt/PFO found. Advance CARE directives: Discussed with the patient's brother, Mr. Burke Blakely who is his legal guardian and power of collections attorney for health regarding advanced directive. Patient is not a living will but his brother has talked to him in the past and he wished DNR CC arrest with no artificial machine support or chest compression in case of cardiorespiratory arrest. He is good for oxygen through mask or BiPAP. Clinical Impression(s) from Imaging Studies Brain CT 06/22/17 07:39 IMPRESSION: Encephalomalacia involving the left frontal temporal parietal lobes. No acute abnormality is seen. Brain MRI 06/22/17 11:40 IMPRESSION: 1. Involutional changes of the brain, as described above. 2. Multiple bilateral acute infarcts. 3. Occlusion of left sided petrous and cavernous internal carotid arteries. Head CTA 06/22/17 18:12 IMPRESSION: High-grade segmental stenosis of the proximal M1 segment of the left middle cerebral artery with reduced flow in the M2 and sylvian branches Other findings as above Electronically Signed: Percy Guzman MD at 21:57 EST , Service support , Neck CTA 06/22/17 18:12 IMPRESSION: Complete occlusion of the left internal carotid artery from its origin. Short segment high-grade stenosis/near complete occlusion at the origin of the right internal carotid artery. Interventional/surgical consultation recommended. Thready flow in the left middle cerebral artery and branching vessels associated with large left MCA territory infarct. Laboratory Results 06/22/17 09:00: PT 13.1, INR 1.0, APTT 27.2 06/22/17 10:10: Urine Color Yellow, Urine Clarity Cloudy, Urine pH 5.0, Ur Specific [place] 1.015, Urine Protein 15 H, Urine Glucose (UA) Normal, Urine Ketones Negative, Urine Occult Blood 50 H, Urine Nitrite Positive H, Urine Bilirubin Negative, Urine Urobilinogen Normal, Ur Leukocyte Esterase 500 H, Urine RBC 0-5 SEEN, Urine WBC >100 SEEN, Ur Squamous Epith Cells 0-5 SEEN, Urine Bacteria 4+, Urine Mucus 1+ 06/22/17 11:55: Troponin I 0.02, TSH 1.38 06/22/17 14:02: POC Glucose 128 H 06/22/17 17:37: POC Glucose 122 H 06/22/17 22:20: POC Glucose 133 H 06/23/17 05:39: Sodium 143, Potassium 4.0, Chloride 107, Carbon Dioxide 28.0, Anion Gap 8, BUN 7, Creatinine 0.69 L, Estim Creat Clear Calc 117.15, Est GFR (MDRD) Af Amer 148, Est GFR (MDRD) Non-Af 122, BUN/Creatinine Ratio 10.1, Glucose 145 H, Calcium 8.7, Triglycerides 202 H, Cholesterol 203 H, LDL Cholesterol 129, VLDL Cholesterol 40, HDL Cholesterol 34 L 06/23/17 05:39: WBC 9.4, RBC 4.36 L, Hgb 13.6, Hct 40.8, MCV 93.6, MCH 31.2, MCHC 33.3, RDW 13.5, RDW Differential 44.9 H, Plt Count 273, MPV 9.8, Immature Gran % (Auto) 0.200, Neut % (Auto) 65.0, Lymph % (Auto) 23.1, [place] % (Auto) 10.8 H, Eos % (Auto) 0.5, Baso % (Auto) 0.4, Absolute Neuts (auto) 6.1, Absolute Lymphs (auto) 2.18, Total Counted Not Reportable 06/23/17 05:39: Hemoglobin A1c 7.3 H 06/23/17 06:23: POC Glucose 75
--- NOTE | 2017-06-23 09:04 | PN_ITS ---
Subjective: Seen and examined. Patient is still confused, disoriented,; semi-conscious; not opening eyes. Patient also sometimes have involuntary movement of lower extremities Vitals/I&O's: Vital Signs Temp Pulse Resp BP Pulse Ox 98.7 F 94 18 134/100 H 98 06/23/17 08:05 06/23/17 08:05 06/23/17 08:05 06/23/17 08:05 06/23/17 08:05 Oxygen Flow Rate 2 Oxygen Delivery Method Nasal Cannula Weight: 228 lb 13.437 oz Body Mass Index (BMI) 30.3 Intake and Output for Last 24 Hours 06/21/17 06/22/17 06/23/17 23:59 23:59 23:59 Intake Total 362 / 362 1191 / 1191 Balance 362 / 362 1191 / 1191 General: Lethargic, - - Eyes closed.; Semi-conscious HEENT: PERRLA, Normocephalic, - - Pupils seem slightly dilated Oral: Dry Mucosa Neck: Supple, No JVD, Negative Carotid Bruits Lungs: No rhonchi, Diminished, - - Coarse upper resp wheezing sound Cardiovascular: Regular rate, Normal S1, Normal S2, No murmurs, Irregular Rate, - - Multiple PVCs Abdomen: Bowel Sounds Present, Soft, Non Tender Extremities: Edema Musculoskeletal: Arthritic Changes, Muscle Wasting Neurological: - - Muscle rigidity present on the bilateral lower extremities, more on right lower extremity. Plantar reflex equivocal. Bilateral knees jerk; hyper 3+/4 Laboratory Results 06/22/17 11:55: Troponin I 0.02, TSH 1.38 06/22/17 14:02: POC Glucose 128 H 06/22/17 17:37: POC Glucose 122 H 06/22/17 22:20: POC Glucose 133 H 06/23/17 05:39: Sodium 143, Potassium 4.0, Chloride 107, Carbon Dioxide 28.0, Anion Gap 8, BUN 7, Creatinine 0.69 L, Estim Creat Clear Calc 117.15, Est GFR ( MDRD) Af Amer 148, Est GFR (MDRD) Non-Af 122, BUN/Creatinine Ratio 10.1, Glucose 145 H, Calcium 8.7, Triglycerides 202 H, Cholesterol 203 H, LDL Cholesterol 129, VLDL Cholesterol 40, HDL Cholesterol 34 L 06/23/17 05:39: WBC 9.4, RBC 4.36 L, Hgb 13.6, Hct 40.8, MCV 93.6, MCH 31.2, MCHC 33.3, RDW 13.5, RDW Differential 44.9 H, Plt Count 273, MPV 9.8, Immature Gran % (Auto) 0.200, Neut % (Auto) 65.0, Lymph % (Auto) 23.1, [place] % (Auto) 10.8 H, Eos % (Auto) 0.5, Baso % (Auto) 0.4, Absolute Neuts (auto) 6.1, Absolute Lymphs (auto) 2.18, Total Counted Not Reportable 06/23/17 05:39: Hemoglobin A1c 7.3 H 06/23/17 06:23: POC Glucose 75 Current Medications Aspirin (Aspirin) 325 mg GT DAILY@0800 [facility] Atorvastatin Calcium (Lipitor) 80 mg GT DAILY [facility] Last Admin: 06/22/17 13:53 Dose: 80 mg Clopidogrel Bisulfate (Plavix) 75 mg GT DAILY [facility] Last Admin: 06/22/17 19:06 Dose: 75 mg Dextrose (D50w Syringe) 0 gm IV X1 PRN; Protocol PRN Reason: Hypoglycemia Enoxaparin Sodium (Lovenox) 40 mg SC DAILY@0600 [facility] Last Admin: 06/23/17 06:01 Dose: 40 mg Glucagon () 1 mg IM .X1 PRN PRN Reason: Hypoglycemia Sodium Chloride () 1,000 mls @ 100 mls/hr IV .Q10H [facility] Last Admin: 06/23/17 06:25 Dose: 100 mls/hr Ceftriaxone Sodium (Rocephin) 1 gm in 50 mls @ 100 mls/hr IV DAILY [facility] Levetiracetam 750 mg/ N/A 150 mls @ 600 mls/hr IV Q12 [facility] Last Admin: 06/22/17 22:27 Dose: 600 mls/hr Insulin Aspart (Novolog Flexpen (Bkc)) 0 units SC Q6 [facility] PRN Reason: Protocol Last Admin: 06/23/17 06:37 Dose: Not Given Morphine Sulfate (Morphine) 2 mg IV Q4H PRN PRN PRN Reason: SEVERE PAIN (6-10/10) Last Admin: 06/22/17 14:45 Dose: 2 mg Sodium Chloride () 5 - 30 ml IV UD PRN PRN Reason: SALINE FLUSH Assessment/Plan The patient is a 67 year old M with multiple comorbidities including recent CVA with right-sided weakness in January 2017 was brought in from SNF for altered mental status and eyes gaze was fixed to the right. As per EMS note, glucose was 145. Patient baseline is right-sided weakness, nonverbal noncommunicative. In ED, patient was found semi-above with left leg twitching. UA was positive of pyuria suggestive of UTI. Patient does not have a Mckeon catheter. No history of fever or chills. Patient was tachycardic [address] head shows increased inflammation involving the left frontal temporal parietal lobes but no acute abnormality. 1. Altered mental status, multifactorial from large stroke/infectious, metabolic encephalopathy with question of possible seizure in view of previous large left ischemic infarct: The patient is being admitted on the monitored bed. MRI brain reported as multiple bilateral acute infarct with near complete occlusion of left ICA and occlusion of left-sided petrous and cavernous part of ICA. CT angiogram of brain shows High-grade segmental stenosis of the proximal M1 segment of the left middle cerebral artery with reduced flow in the M2 and sylvian branches. Neurology consult appreciated and discussed. Earlier, the neurologist advised ARLENE but patient seems very high risk sedation as the patient has decreased awareness/alertness, lethargic and semi-conscious and seems would likely need to be intubated for ARLENE and further on ventilator but later on it was concluded that she does not need it.. In meantime, continue aspirin, Plavix, atorvastatin and other medications. PT/OT and speech/swallow evaluation. Keep the patient n.p.o except medications. 2. SIRS (tachycardia and leukocytosis) possible related to sepsis due to UTI: Patient is started on IV ceftriaxone as mentioned above. Urine culture ordered. Lactic acid ordered. 3. Recent history of left ischemic, MCA stroke with right-sided deficit and aphasia: Patient has PEG tube. As per the family member, patient eats by mouth and you just picked to for medication. Carotid Doppler is ordered. 4. Diabetes mellitus type II in obese: Accu-Chek every 6 hourly with NovoLog sliding scale. A1c tomorrow a.m. Other chronic comorbidities include peripheral arterial disease, occlusion of left internal carotid artery, hypertension, dyslipidemia, dysphagia, PEG tube, possible obstructive sleep apnea, LVH, chronic diastolic heart failure: Patient had echo in January 2017 which shows mild concentric LVH, EF 65% with a stage I diastolic dysfunction. No regional wall motion abnormality. Normal size and systolic function of right ventricle. No interatrial shunt/PFO found. Advance CARE directives: Discussed with the patient's brother, Mr. Burke Blakely who is his legal guardian and power of student loan counselor for health regarding advanced directive. Patient is not a living will but his brother has talked to him in the past and he wished DNR CC arrest with no artificial machine support or chest compression in case of cardiorespiratory arrest. He is good for oxygen through mask or BiPAP. Clinical Impression(s) from Imaging Studies Brain CT 06/22/17 07:39 IMPRESSION: Encephalomalacia involving the left frontal temporal parietal lobes. No acute abnormality is seen. Brain MRI 06/22/17 11:40 IMPRESSION: 1. Involutional changes of the brain, as described above. 2. Multiple bilateral acute infarcts. 3. Occlusion of left sided petrous and cavernous internal carotid arteries. Head CTA 06/22/17 18:12 IMPRESSION: High-grade segmental stenosis of the proximal M1 segment of the left middle cerebral artery with reduced flow in the M2 and sylvian branches Other findings as above Electronically Signed: Percy Guzman MD at 21:57 EST , Service support , Neck CTA 06/22/17 18:12 IMPRESSION: Complete occlusion of the left internal carotid artery from its origin. Short segment high-grade stenosis/near complete occlusion at the origin of the right internal carotid artery. Interventional/surgical consultation recommended. Thready flow in the left middle cerebral artery and branching vessels associated with large left MCA territory infarct. Laboratory Results 06/22/17 09:00: PT 13.1, INR 1.0, APTT 27.2 06/22/17 10:10: Urine Color Yellow, Urine Clarity Cloudy, Urine pH 5.0, Ur Specific [place] 1.015, Urine Protein 15 H, Urine Glucose (UA) Normal, Urine Ketones Negative, Urine Occult Blood 50 H, Urine Nitrite Positive H, Urine Bilirubin Negative, Urine Urobilinogen Normal, Ur Leukocyte Esterase 500 H, Urine RBC 0-5 SEEN, Urine WBC >100 SEEN, Ur Squamous Epith Cells 0-5 SEEN, Urine Bacteria 4+, Urine Mucus 1+ 06/22/17 11:55: Troponin I 0.02, TSH 1.38 06/22/17 14:02: POC Glucose 128 H 06/22/17 17:37: POC Glucose 122 H 06/22/17 22:20: POC Glucose 133 H 06/23/17 05:39: Sodium 143, Potassium 4.0, Chloride 107, Carbon Dioxide 28.0, Anion Gap 8, BUN 7, Creatinine 0.69 L, Estim Creat Clear Calc 117.15, Est GFR ( MDRD) Af Amer 148, Est GFR (MDRD) Non-Af 122, BUN/Creatinine Ratio 10.1, Glucose 145 H, Calcium 8.7, Triglycerides 202 H, Cholesterol 203 H, LDL Cholesterol 129, VLDL Cholesterol 40, HDL Cholesterol 34 L 06/23/17 05:39: WBC 9.4, RBC 4.36 L, Hgb 13.6, Hct 40.8, MCV 93.6, MCH 31.2, MCHC 33.3, RDW 13.5, RDW Differential 44.9 H, Plt Count 273, MPV 9.8, Immature Gran % (Auto) 0.200, Neut % (Auto) 65.0, Lymph % (Auto) 23.1, [place] % (Auto) 10.8 H, Eos % (Auto) 0.5, Baso % (Auto) 0.4, Absolute Neuts (auto) 6.1, Absolute Lymphs (auto) 2.18, Total Counted Not Reportable 06/23/17 05:39: Hemoglobin A1c 7.3 H 06/23/17 06:23: POC Glucose 75
--- NOTE | 2017-06-23 09:20 | CASEMGMT ---
Addendum entered by Chiqui Razo 06/23/17 11:34: JUDY called Jennifer at [facility] and let her know patient has been accepted at [facility] and they have a bed for him. JUDY told her he is leaving today. Chiqui ISIDRO Original Note: Addendum entered by Chiqui Razo 06/23/17 10:49: SW spoke with Jennifer at [facility] and let her know that physician is looking to transfer patient to [facility]. SW will let her know when he is transferred. Chiqui ISIDRO Original Note: JUDY faxed updates to [facility]. SW to follow for d/c back to [facility] when ready. Chiqui ISIDRO
[2017-06-23] MEDS: Clopidogrel Bisulfate 75 MG Tablet GT (10:57)
[2017-06-23] MEDS: Atorvastatin Calcium 80 MG Tablet GT (10:58)
[2017-06-23] MEDS: Ceftriaxone 1 GM/50 ML BAG IV (11:19)
[2017-06-23] MEDS: 0.9% NaCl Peripheral Flush Adult/Peds IV (11:20)
--- NOTE | 2017-06-23 11:25 | NURSING ---
report given to kaye sherwood and [facility] neuro ICU
[2017-06-23 12:06] LABS: Bedside Glucose 125 mg/dL (70-110)
--- NOTE | 2017-06-23 12:11 | EEG ---
- Electroencephalogram Date of Service: 06/23/17 History EEG is being done in this 67 yr M to rule out seizures EEG Description: This is an 18 channel EEG with 10-20 lead placement system. Bipolar montages, Referential and Circumferential montages were reviewed. Photic stimulation was performed but Hyperventilation was performed to patient's mental status change. The posterior dominant background rhythm was not present. Photo stimulation elicited normal driving response but no abnormal photoparoxysmal response, Hyperventilation was not performed. There is generalized background slowing in the delta frequency of about 3-4 Hz. Sleep was not identified. There was no epileptiform discharges or electrographic seizures noted during this recording. EEG Interpretation This is an abnormal EEG due to the presence of severe generalized slowing. This can be seen in generalized cerebral dysfunction like metabolic/toxic encephalopathy. Clinical correlation is advised. There is no epileptiform discharges or electrographic seizures noted during the record.
--- NOTE | 2017-06-23 12:56 | PN.NEURO_ITS ---
Subjective: No issues overnight per documentation but at present patient seems to be more lethargic than yesterday and continues to be altered. MRI brain reported to show embolic right MCA stroke, and some possible left MCA stroke, along with watershed infarcts in the left [employer]/MCA and Left CHARIS/MCA region, CTA head/neck reported to show left ICA occlusion with left M1 critical stenosis and right ICA critical stenosis - Physical Exam General: - - lethargic HEENT: Atraumatic, PERRLA, Normocephalic Neck: Supple, No JVD Lungs: Clear to auscultation Cardiovascular: Regular rate Abdomen: Bowel Sounds Present, Soft, Non Tender Extremities: No edema Neurological: - - drowsy, with global aphasia, limited Neurology examination, does not follow any VC at present, pupils BERL, right UE/LE flaccid, Plantars Right extensor/left flexor, sensory/cerebellar/gait could not be assessed, Reflexes + B/L B/S/T/K/A. Vital Signs Temp Pulse Resp BP Pulse Ox 98.5 F 82 16 143/100 H 94 06/23/17 10:07 06/23/17 11:33 06/23/17 11:33 06/23/17 10:07 06/23/17 11:33 Oxygen Flow Rate 2 Oxygen Delivery Method Nasal Cannula Weight: 103.8 kg Body Mass Index (BMI) 30.3 Intake and Output for Last 24 Hours 06/21/17 06/22/17 06/23/17 23:59 23:59 23:59 Intake Total 362 / 362 1191 / 1191 Balance 362 / 362 1191 / 1191 Microbiology Past 72 Hours 06/22/17 13:20 Urine Culture - Final Urine, Catheterized Gram negative sarina Laboratory Tests Past 24 Hrs 06/23/17 06/23/17 06/23/17 05:39 05:39 05:39 WBC 9.4 RBC 4.36 L Hgb 13.6 Hct 40.8 MCV 93.6 MCH 31.2 MCHC 33.3 RDW 13.5 RDW Differential 44.9 H Plt Count 273 MPV 9.8 Immature Gran % (Auto) 0.200 Neut % (Auto) 65.0 Lymph % (Auto) 23.1 [place] % (Auto) 10.8 H Eos % (Auto) 0.5 Baso % (Auto) 0.4 Absolute Neuts (auto) 6.1 Absolute Lymphs (auto) 2.18 Total Counted Not Reportable Sodium 143 Potassium 4.0 Chloride 107 Carbon Dioxide 28.0 Anion Gap 8 BUN 7 Creatinine 0.69 L Estim Creat Clear Calc 117.15 Est GFR (MDRD) Af Amer 148 Est GFR (MDRD) Non-Af 122 BUN/Creatinine Ratio 10.1 Glucose 145 H Hemoglobin A1c 7.3 H Calcium 8.7 Triglycerides 202 H Cholesterol 203 H LDL Cholesterol 129 VLDL Cholesterol 40 HDL Cholesterol 34 L POC Glucose 06/23/17 06/23/17 06/22/17 12:02 06:23 22:20 POC Glucose 125 H 75 133 H 06/22/17 06/22/17 17:37 14:02 POC Glucose 122 H 128 H Assessment/Plan The patient is a 67 year old CM NHR with PMH HTN. HLD, DM, recent Left MCA stroke with Left ICA occlusion with residual right sided weakness, global aphasia, NIMO , recent hospitalization with influenza admitted with AMS. History is obtained from medical records and documentation. History could not be obtained from the patient due to global aphasia. Per documentation patient is being admitted with AMS, was found to have right sided eye deviation, per ED documentation he was told to have left arm weakness and left leg twitching per NH. At present there is no documentation of KNOWLES, fever, new onset focal motor weakness or sensory loss. Found to have UTI on admission. Impression Metabolic Encephalopathy Bilateral MCA athero-embolic stroke along with watershed infarcts in the left [employer] MARK[employer]/MCA and Left CHARIS/MCA region Left ICA occlusion, Left M1 high grade stenosis and Right ICA high grade stenosis seizures Plan -On ASA, Plavix and Lipitor -On Keppra 750 mg BID -MRI brain and CTA head/neck images reviewed -EEG-severe generalized slowing -Avoid hypotension -Patient to be transferred to [facility] for further intervention evaluation, for possible right carotid stenting -Prognosis guarded -Further UTI management per primary team -GI/DVT prophylaxis -PT/OT/ST -Please call with questions if any -Thank you for allowing us to participate in patients care and management I spent 30 minutes taking history, doing physical examination, reviewing medical records, as well as coordinating care
--- NOTE | 2017-06-23 15:38 | PCM.DC.SUM ---
Discharge Date and Diagnosis Date of Admission: 06/22/17 Date of Discharge: 06/23/17 - Primary Discharge Diagnosis 1. Altered mental status, suggestive of acute encephalopathy, multifactorial from large acute B/L atheroembolic stroke, patient has/metabolic encephalopathy with question of possible seizure in view of previous large left ischemic infarct: 2. Bilateral MCA atheroembolic a stroke along with watershed infarct in left PAPER SLITTER/MCA and left CHARIS/MCA region. Left total ICA occlusion, left M1 high-grade stenosis right ICA high-grade stenosis. Possible seizure: Unable to determine acuity and type of seizure on EEG was done. EEG does not show any epileptiform discharge but shows generalized slowing, severe in degree suggestive of generalized cerebral dysfunction likely metabolic/toxic encephalopathy. SIRS (tachycardia and leukocytosis) possible related to sepsis due to partially treated UTI: Urine culture came as gram-negative sarina less than 1000; suggestive of partially treated UTI. urine culture was drawn after ceftriaxone was given. Recent history of left ischemic, MCA stroke in January 2017 with right-sided deficit and aphasia: - Secondary Discharge Diagnosis Chronic Problems Chronic left arterial ischemic stroke, MCA (middle cerebral artery) (Chronic) Global aphasia (Chronic) Occlusion of left internal carotid artery (Chronic) Diabetes mellitus type 2 in obese (Chronic) Hypertension (Chronic) Hyperlipidemia (Chronic) Dysphagia (Chronic) 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 Duncan Sleep-disordered breathing (Chronic) LVH (left ventricular hypertrophy) (Chronic) Diastolic dysfunction (Chronic) Hospital Course and Treatment Operations: None Summary of Care Provided: [] The patient is a 67 year old M with multiple comorbidities including recent CVA with right-sided weakness in January 2017 was brought in from SNF for altered mental status and eyes gaze was fixed to the right. As per EMS note, glucose was 145. Patient baseline is right-sided weakness, nonverbal noncommunicative. In ED, patient was found semi-above with left leg twitching. UA was positive of pyuria suggestive of UTI. Patient does not have a Mckeon catheter. No history of fever or chills. Patient was tachycardic [address] head shows increased inflammation involving the left frontal temporal parietal lobes but no acute abnormality. 1. Altered mental status, multifactorial from large acute B/L atheroembolic stroke, patient has/metabolic encephalopathy with question of possible seizure in view of previous large left ischemic infarct: The patient is being admitted on the monitored bed. MRI brain reported as multiple bilateral acute infarct with near complete occlusion of left ICA and occlusion of left-sided petrous and cavernous part of ICA. CT angiogram of brain shows High-grade segmental stenosis of the proximal M1 segment of the left middle cerebral artery with reduced flow in the M2 and sylvian branches. CT angiogram of neck shows complete occlusion of left internal carotid artery and short segment high-grade stenosis/near complete occlusion at the origin of the right internal carotid artery. Interventional/surgical consultation recommended. Neurology consult appreciated and discussed. Initially the neurologist advised ARLENE but but after further review of CT angiogram of head and neck, it was determined that he is throwing emboli from bilateral internal carotid artery rather than cardiac in origin. Patient also seems very high risk sedation as the patient has decreased awareness/alertness, lethargic and semi-conscious and seems would likely need to be intubated for ARLENE and further on ventilator. In meantime, continue aspirin, Plavix, atorvastatin and other medications. PT/OT and speech/swallow evaluation. Keep the patient n.p.o except medications. 2. Bilateral MCA atheroembolic stroke along with watershed infarct in left PAPER SLITTER/MCA and left CHARIS/MCA region. Left total ICA occlusion, left M1 high-grade stenosis right ICA high-grade stenosis. It was determined that patient does not need ARLENE but tertiary care for right internal carotid artery stenting. This was discussed with the patient's brother Mr. Burke Blakely who wanted to be transferred to [facility] for the above procedure. Transfer line of [facility] called and patient was accepted in the neuro ICU under Dr. Medina. Patient was transferred to [facility]. Possible seizure: Unable to determine acuity and type of seizure on EEG was done. EEG does not show any epileptiform discharge but shows generalized slowing, severe in degree suggestive of generalized cerebral dysfunction likely metabolic/toxic encephalopathy. 2. SIRS (tachycardia and leukocytosis) possible related to sepsis due to UTI: Patient is started on IV ceftriaxone as mentioned above. Urine culture came as gram-negative sarina less than 1000; suggestive of partially treated UTI. urine culture was drawn after ceftriaxone was given. 3. Recent history of left ischemic, MCA stroke with right-sided deficit and aphasia: Patient has PEG tube. As per the family member, patient eats by mouth and you just picked to for medication. Carotid Doppler is ordered. 4. Diabetes mellitus type II in obese: Accu-Chek every 6 hourly with NovoLog sliding scale. A1c 7.3. Other chronic comorbidities include peripheral arterial disease, occlusion of left internal carotid artery, hypertension, dyslipidemia, dysphagia, PEG tube, possible obstructive sleep apnea, LVH, chronic diastolic heart failure: Patient had echo in January 2017 which shows mild concentric LVH, EF 65% with a stage I diastolic dysfunction. No regional wall motion abnormality. Normal size and systolic function of right ventricle. No interatrial shunt/PFO found. Advance CARE directives: Discussed with the patient's brother, Mr. Burke Blakely who is his legal guardian and power of claim attorney for health regarding advanced directive. Patient is not a living will but his brother has talked to him in the past and he wished DNR CC arrest with no artificial machine support or chest compression in case of cardiorespiratory arrest. He is good for oxygen through mask or BiPAP. More than 45 minutes spent in the transfer process including discussion with the patient's family member, his brother who is the power of claim attorney and discussion with other consultants and attending in [facility] Clinical Impression(s) from Imaging Studies Brain MRI 06/22/17 11:40 IMPRESSION: 1. Involutional changes of the brain, as described above. 2. Multiple bilateral acute infarcts. 3. Occlusion of left sided petrous and cavernous internal carotid arteries. Head CTA 06/22/17 18:12 IMPRESSION: High-grade segmental stenosis of the proximal M1 segment of the left middle cerebral artery with reduced flow in the M2 and sylvian branches Other findings as above Neck CTA 06/22/17 18:12 IMPRESSION: Complete occlusion of the left internal carotid artery from its origin. Short segment high-grade stenosis/near complete occlusion at the origin of the right internal carotid artery. Interventional/surgical consultation recommended. Thready flow in the left middle cerebral artery and branching vessels associated with large left MCA territory infarct. Home Medications: Medications to take at Discharge Aspirin [Aspirin, Baby] 162 mg GT DAILY@0800 tab.chew 01/24/17 Atorvastatin Calcium [Lipitor] 80 mg GT QHS tablet 01/24/17 Acetaminophen 1,000 mg GT TID 05/11/17 Bisacodyl [Laxative Suppository] 10 mg RC DAILY PRN PRN 05/11/17 Gabapentin [Neurontin Solution] 300 mg GT TIDCM 05/11/17 Gemfibrozil [Lopid] 600 mg GT BIDAC 05/11/17 Magnesium Hydroxide [Milk of Magnesia] 30 ml PO DAILY PRN PRN 05/11/17 Mineral Oil 118 ml RC DAILY PRN PRN 05/11/17 Nut.tx.gluc.intoler,Lac-Fr,Soy [Glucerna 1.5 Juan] 1 dose GT BID PRN PRN 05/11/17 Primary Care Physician: Marcin Joseph MD [Primary Care Provider] - Meaningful Use Info Meaningful Use Diagnoses (Choose all that apply): Ischemic CVA - CVA Therapy Assessed for PT,OT and/or ST?: Yes - Ischemic Stroke Antithrombotic order at d/c?: Yes Dx of Atrial fib/flutter?: No Anticoagulant at discharge?: Yes Statins at discharge?: Yes Primary Dx Acute Ischemic CVA?: Yes IV tPA ordered during stay?: No Reason IV t-PA not ordered: Procedure not Indicated - Time of onset unclear Code Visit Inpatient E&M: 73843 Disch Hosp
--- NOTE | 2017-06-23 15:51 | DS.PCM_ITS ---
Discharge Date and Diagnosis Date of Admission: 06/22/17 Date of Discharge: 06/23/17 - Primary Discharge Diagnosis 1. Altered mental status, suggestive of acute encephalopathy, multifactorial from large acute B/L atheroembolic stroke, patient has/metabolic encephalopathy with question of possible seizure in view of previous large left ischemic infarct: 2. Bilateral MCA atheroembolic a stroke along with watershed infarct in left REPAIR SPECIALIST/MCA and left CHARIS/MCA region. Left total ICA occlusion, left M1 high-grade stenosis right ICA high-grade stenosis. Possible seizure: Unable to determine acuity and type of seizure on EEG was done. EEG does not show any epileptiform discharge but shows generalized slowing, severe in degree suggestive of generalized cerebral dysfunction likely metabolic/toxic encephalopathy. SIRS (tachycardia and leukocytosis) possible related to sepsis due to partially treated UTI: Urine culture came as gram-negative sarina less than 1000; suggestive of partially treated UTI. urine culture was drawn after ceftriaxone was given. Recent history of left ischemic, MCA stroke in January 2017 with right- sided deficit and aphasia: - Secondary Discharge Diagnosis Chronic Problems Chronic left arterial ischemic stroke, MCA (middle cerebral artery) (Chronic) Global aphasia (Chronic) Occlusion of left internal carotid artery (Chronic) Diabetes mellitus type 2 in obese (Chronic) Hypertension (Chronic) Hyperlipidemia (Chronic) Dysphagia (Chronic) Status post insertion of percutaneous endoscopic gastrostomy (PEG) tube (Chronic ) 01/[address] Duncan Sleep-disordered breathing (Chronic) LVH (left ventricular hypertrophy) (Chronic) Diastolic dysfunction (Chronic) Hospital Course and Treatment Operations: None Summary of Care Provided: [] The patient is a 67 year old M with multiple comorbidities including recent CVA with right-sided weakness in January 2017 was brought in from SNF for altered mental status and eyes gaze was fixed to the right. As per EMS note, glucose was 145. Patient baseline is right-sided weakness, nonverbal noncommunicative. In ED, patient was found semi-above with left leg twitching. UA was positive of pyuria suggestive of UTI. Patient does not have a Mckeon catheter. No history of fever or chills. Patient was tachycardic [address] head shows increased inflammation involving the left frontal temporal parietal lobes but no acute abnormality. 1. Altered mental status, multifactorial from large acute B/L atheroembolic stroke, patient has/metabolic encephalopathy with question of possible seizure in view of previous large left ischemic infarct: The patient is being admitted on the monitored bed. MRI brain reported as multiple bilateral acute infarct with near complete occlusion of left ICA and occlusion of left-sided petrous and cavernous part of ICA. CT angiogram of brain shows High-grade segmental stenosis of the proximal M1 segment of the left middle cerebral artery with reduced flow in the M2 and sylvian branches. CT angiogram of neck shows complete occlusion of left internal carotid artery and short segment high-grade stenosis/near complete occlusion at the origin of the right internal carotid artery. Interventional/surgical consultation recommended. Neurology consult appreciated and discussed. Initially the neurologist advised ARLENE but but after further review of CT angiogram of head and neck, it was determined that he is throwing emboli from bilateral internal carotid artery rather than cardiac in origin. Patient also seems very high risk sedation as the patient has decreased awareness/alertness, lethargic and semi-conscious and seems would likely need to be intubated for ARLENE and further on ventilator. In meantime, continue aspirin, Plavix, atorvastatin and other medications. PT/OT and speech/ swallow evaluation. Keep the patient n.p.o except medications. 2. Bilateral MCA atheroembolic stroke along with watershed infarct in left REPAIR SPECIALIST /MCA and left CHARIS/MCA region. Left total ICA occlusion, left M1 high-grade stenosis right ICA high-grade stenosis. It was determined that patient does not need ARLENE but tertiary care for right internal carotid artery stenting. This was discussed with the patient's brother Mr. Burke Blakely who wanted to be transferred to [facility] for the above procedure. Transfer line of [facility] called and patient was accepted in the neuro ICU under Dr. Medina. Patient was transferred to [facility]. Possible seizure: Unable to determine acuity and type of seizure on EEG was done. EEG does not show any epileptiform discharge but shows generalized slowing, severe in degree suggestive of generalized cerebral dysfunction likely metabolic/toxic encephalopathy. 2. SIRS (tachycardia and leukocytosis) possible related to sepsis due to UTI: Patient is started on IV ceftriaxone as mentioned above. Urine culture came as gram-negative sarina less than 1000; suggestive of partially treated UTI. urine culture was drawn after ceftriaxone was given. 3. Recent history of left ischemic, MCA stroke with right-sided deficit and aphasia: Patient has PEG tube. As per the family member, patient eats by mouth and you just picked to for medication. Carotid Doppler is ordered. 4. Diabetes mellitus type II in obese: Accu-Chek every 6 hourly with NovoLog sliding scale. A1c 7.3. Other chronic comorbidities include peripheral arterial disease, occlusion of left internal carotid artery, hypertension, dyslipidemia, dysphagia, PEG tube, possible obstructive sleep apnea, LVH, chronic diastolic heart failure: Patient had echo in January 2017 which shows mild concentric LVH, EF 65% with a stage I diastolic dysfunction. No regional wall motion abnormality. Normal size and systolic function of right ventricle. No interatrial shunt/PFO found. Advance CARE directives: Discussed with the patient's brother, Mr. Burke Blakely who is his legal guardian and power of estate attorney for health regarding advanced directive. Patient is not a living will but his brother has talked to him in the past and he wished DNR CC arrest with no artificial machine support or chest compression in case of cardiorespiratory arrest. He is good for oxygen through mask or BiPAP. More than 45 minutes spent in the transfer process including discussion with the patient's family member, his brother who is the power of estate attorney and discussion with other consultants and attending in [facility] Clinical Impression(s) from Imaging Studies Brain MRI 06/22/17 11:40 IMPRESSION: 1. Involutional changes of the brain, as described above. 2. Multiple bilateral acute infarcts. 3. Occlusion of left sided petrous and cavernous internal carotid arteries. Head CTA 06/22/17 18:12 IMPRESSION: High-grade segmental stenosis of the proximal M1 segment of the left middle cerebral artery with reduced flow in the M2 and sylvian branches Other findings as above Neck CTA 06/22/17 18:12 IMPRESSION: Complete occlusion of the left internal carotid artery from its origin. Short segment high-grade stenosis/near complete occlusion at the origin of the right internal carotid artery. Interventional/surgical consultation recommended. Thready flow in the left middle cerebral artery and branching vessels associated with large left MCA territory infarct. Home Medications: Medications to take at Discharge Aspirin [Aspirin, Baby] 162 mg GT DAILY@0800 tab.chew 01/24/17 Atorvastatin Calcium [Lipitor] 80 mg GT QHS tablet 01/24/17 Acetaminophen 1,000 mg GT TID 05/11/17 Bisacodyl [Laxative Suppository] 10 mg RC DAILY PRN PRN 05/11/17 Gabapentin [Neurontin Solution] 300 mg GT TIDCM 05/11/17 Gemfibrozil [Lopid] 600 mg GT BIDAC 05/11/17 Magnesium Hydroxide [Milk of Magnesia] 30 ml PO DAILY PRN PRN 05/11/17 Mineral Oil 118 ml RC DAILY PRN PRN 05/11/17 Nut.tx.gluc.intoler,Lac-Fr,Soy [Glucerna 1.5 Juan] 1 dose GT BID PRN PRN Primary Care Physician: Marcin Joseph MD [Primary Care Provider] - Meaningful Use Info Meaningful Use Diagnoses (Choose all that apply): Ischemic CVA - CVA Therapy Assessed for PT,OT and/or ST?: Yes - Ischemic Stroke Antithrombotic order at d/c?: Yes Dx of Atrial fib/flutter?: No Anticoagulant at discharge?: Yes Statins at discharge?: Yes Primary Dx Acute Ischemic CVA?: Yes IV tPA ordered during stay?: No Reason IV t-PA not ordered: Procedure not Indicated - Time of onset unclear Code Visit Inpatient E&M: [id number] Disch Hosp
== END 2017-06-23 12:25 | disposition short-term general hospital (02) | DRG 871 ==
LOC: ED 08:21 → PCU 11:15
PROVIDERS: Admitting Provider Internal Medicine; Emergency Provider Emergency Medicine; Family Provider Family Medicine; PCP Family Medicine; Visit Provider Internal Medicine
DX: A41.9 Sepsis, unspecified organism (principal); I63.413 Cerebral infarction due to embolism of bilateral middle cerebral arteries; I63.133 Cerebral infarction due to embolism of bilateral carotid arteries; G93.41 Metabolic encephalopathy; N39.0 Urinary tract infection, site not specified; I50.32 Chronic diastolic (congestive) heart failure; I69.351 Hemiplegia and hemiparesis following cerebral infarction affecting right dominant side; I69.320 Aphasia following cerebral infarction; I11.0 Hypertensive heart disease with heart failure; R56.9 Unspecified convulsions; I49.3 Ventricular premature depolarization; E11.9 Type 2 diabetes mellitus without complications; E78.5 Hyperlipidemia, unspecified; R13.10 Dysphagia, unspecified; G47.33 Obstructive sleep apnea (adult) (pediatric); E66.9 Obesity, unspecified; Z68.30 Body mass index [BMI] 30.0-30.9, adult; Z79.82 Long term (current) use of aspirin; Z79.899 Other long term (current) drug therapy; Z93.1 Gastrostomy status; Z87.891 Personal history of nicotine dependence
CPT/HCPCS: 36415; 70450; 70496; 70498; 70551; 71045; 80048; 80061; 81001; 82962; 83036; 84443; 84484; 85025; 85610; 85730; 87086; 87088; 93005; 95819; 97162; 97167; 97802; 99285; J7030; P9612; Q9967; A4216

== ENCOUNTER 2017-08-16 10:27 | Emergency (ER) | payer MEDICARE, OTHER, SELFPAY ==
[2017-08-16 10:31] VITALS: BP 121/96; PULSE 88; PULSE 91; RESP 14; RESP 17; TEMP 37.7; O2SAT 88; O2SAT 93; BMI 34.0
--- NOTE | 2017-08-16 10:45 | CT_ITS ---
STUDY: CT BRAIN WITHOUT CONTRAST REASON FOR EXAM: Male, 67 years old. Altered mental status, previous CVA RADIATION DOSAGE (If Supplied By Facility): CTDIvol = ( 44.99 ) mGy, DLP = ( 779.24 ) mGycm TECHNIQUE: Transaxial CT imaging of the brain was performed without administration of intravenous contrast material. Sagittal and coronal reconstructed images are provided and reviewed. Individualized dose optimization techniques were used for this CT. COMPARISON: 06/22/2017 FINDINGS: Normal soft tissue structures. Normal calvarium. 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 There is mild cerebral atrophy with widening of the extra-axial spaces and ventricular dilatation. There is encephalomalacia involving the left MCA distribution. The small regions of restricted diffusion within the right and left parietal lobes on MRI of 06/22/2017 are not well seen by CT. Normal basal ganglia and thalami. Normal brainstem. Normal cerebellum. There is no intracranial hemorrhage. There are no findings of an acute ischemic infarction. Normal visualized paranasal sinuses. CT/Brain/Head without Contrast IMPRESSION: Remote left MCA infarct with encephalomalacia. No convincing new intracranial abnormality. An MRI can be performed for further evaluation, as detailed above. Electronically Signed: Constantine Rivera DO at 12:33 EDT Tel , Service support ,
--- NOTE | 2017-08-16 10:46 | EKG12_ITS ---
Test Reason : ALTERED LOC Blood Pressure : / mmHG Vent. Rate : 100 BPM Atrial Rate : 100 BPM P-R Int : 158 ms QRS Dur : 072 ms QT Int : 348 ms P-R-T Axes : 042 015 064 degrees QTc Int : 448 ms Sinus rhythm with frequent Premature ventricular complexes Low voltage QRS Borderline ECG Confirmed by IZAIAH MILLAN, MURIEL ([id number]), scientific publications editor RACHELLE PRAKASH ([id number]) on 08/20/2017 2:00:29 PM Referred By: FRANCHESKA Confirmed By:MURIEL BLISS MD
--- NOTE | 2017-08-16 10:57 | RAD_ITS ---
STUDY: X-RAY CHEST REASON FOR EXAM: Male, 67 years old. Right-sided weakness, expressive aphasia TECHNIQUE: Single AP portable view of the chest. COMPARISON: 06/22/2017 FINDINGS: Cardiac monitoring leads overlie the chest. The lungs are underinflated but clear. There is no demonstrated pleural abnormality. Normal size heart. Normal mediastinum and brittany. Normal visualized pulmonary arteries. There is mild calcification of the aortic arch. There are diffuse degenerative changes of the visualized thoracic spine. There is degenerative osteoarthritis of the bilateral shoulders. There is no demonstrated abnormality of the visualized soft tissue structures of the upper abdomen. RAD/Chest 1 View (Portable) IMPRESSION: Degenerative changes, as described above. No demonstrated acute cardiopulmonary process. Electronically Signed: Constantine Rivera DO at 11:47 EDT Tel , Service support ,
[2017-08-16 11:03] LABS: Absolute Lymphocyte Count 2.08 X10^3/ul (0.83-4.51); Absolute Neutrophil Count 3.3 X10^3/uL (2.0-7.7); Basophil# 0.04 X10^3/uL; Basophil% 0.6 % (0-1); Eosinophils% 4.7 % (0-5); Hematocrit 43.1 % (40-54); Hemoglobin 13.6 g/dl (13.0-16.5); Lymphocyte # 2.08 X10^3/ul (4.0); Lymphocyte % 32.7 % (19-41); Mean Corp Hgb Conc 31.6 g/gl (32-36); Mean Corpuscular Hgb 29.6 pg (27.0-32.0); Mean Corpuscular Volume 93.9 fL (80-94); Mean Platelet Vol. 9.1 fl (6.2-12.0); Monocyte# 0.64 X10^3/uL; Monocyte% 10.1 % (0-10); Neutrophil # 3.29 X10^3/uL (2.7-7.7); Neutrophil % 51.7 % (47-70); POSITIVE COUNT NO; POSITIVE DIFFERENTIAL NO; POSITIVE MORPHOLOGY NO; Platelet Count 268 K/mm3 (150-450); RBC Distribution Width CV 14.3 % (11.6-14.6); RBC Distribution Width SD 48.8 fl (35.1-43.9); Red Blood Count 4.59 M/mm3 (4.6-6.2); White Blood Count 6.4 K/mm3 (4.4-11.0)
--- NOTE | 2017-08-16 11:18 | ED.VISSUMM ---
- ER Visit Summary Date of Service: 08/16/17 Chief Complaint: [] Per detention not acting normal History of Present Illness: The patient is a 67 M [] has extensive past medical history including left MCA left ICA right MCA stroke, global weakness global aphasia recent influenza and mental status changes. He is paralyzed on the right side it is really unclear exactly what is different with his status talking to paramedics and per the detention personnel. He here has vital signs are unremarkable temperature is 99 he is awake he looks about the room he tracks with his eyes he mumbles words that are unintelligible, he moves the left upper extremity, he has a twitching movement to the left lower extremity and he has a dense paralysis to the right upper and lower extremity his vital signs are within normal range Reviewing a neurology note from 06/23/2017 suggest this is his baseline, the patient is unable to complain of anything he when asked if anything is bothering him it sounds like he says no Physical Examination: [] Signs are again as above he is in no distress he is resting cupping the bed looking around the room mumbling his HEENT exam is grossly unremarkable his neck appears supple his lungs are diminished heart tones are distant the abdomen is soft the upper lower extremities show some edema, and his neurologic exam is as above Test Results: [] Emergency Department Course and Treatment: [] All of that evaluations pursued, all of the studies including all of the labs EKG head CT etc. are really unremarkable see those reports except for UA shows signs of UTI the brother came by and states his brother is at his baseline is nothing new or different with his brother, we will start urine culture IV Cipro and discharged on Cipro via the PEG tube and have him follow-up his family doctor as the brother is comfortable with this plan Treatment Plan: [] Disposition: [] Home stable Impression: [] History of extensive prior stroke causing right upper and lower extremity paralysis, causing global aphasia, urinary tract infection This note was generated with [id number] dictation software. It may contain incorrect words, spelling, and punctuation that were not noted in review of the chart prior to signing ED Disposition - Plan for ED Patient: Chief Complaint: Alt LOC Referrals: Marcin Joseph MD [Primary Care Provider] -
[2017-08-16 11:23] LABS: AST(SGOT) 25 U/L (15-37); Alanine Aminotransfer ALT/SGPT 30 U/L (16-61); Albumin, Serum 3.2 g/dL (3.2-5.0); Alkaline Phosphatase 97 U/L (45-117); Anion Gap 9 (5-15); BUN 14 mg/dL (7-18); Bilirubin, Direct 0.14 mg/dL (0.00-0.30); Calcium,Total 8.6 mg/dL (8.5-10.1); Chloride 105 mmol/L (98-107); Creatinine, Serum 0.82 mg/dL (0.70-1.30); EST Glomerular Filtration Rate 100 mL/min (>60); Est Glom Filt Rate - Afr Amer 121 mL/min (>60); Estimated Creatinine Clearance 92.73 ml/min; Glucose 103 mg/dL (74-106); Lipase 144 U/L (73-393); Protein, Total 7.2 g/dL (6.4-8.2); Sodium Level 142 mmol/L (136-145)
[2017-08-16 12:11] VITALS: BP 128/71; PULSE 89; RESP 14; O2SAT 97
[2017-08-16 12:30] LABS: Mucous, Urine 0 SEEN /hpf (<or=2+); Red Blood Cells-Urine 0 SEEN /hpf (0-5); Squamous Epithelial Cells - UA 0 SEEN /hpf (0-5)
[2017-08-16 13:13] LABS: Color, Urine Yellow (Yellow); Glucose, Dipstick Normal (Normal); Ketone-Dipstick Negative (Negative); Leukocyte Esterase-Dipstick 500 /ul (Negative); Nitrite-Dipstick Positive (Negative); Occult Blood-Urine 10 /ul (Negative); Protein-Dipstick 30 mg/dl (Negative); Specific Gravity, Urine 1.015 (1.002-1.030); Urine Bilirubin Dipstick Negative (Negative); Urine Clarity Sl. Cloudy (Clear); Urine Urobilinogen Normal (Normal)
[2017-08-16 13:19] LABS: Bacteria 2+ /hpf (None Seen); White Blood Cells 25-50 SEEN /hpf (0-5)
[2017-08-16 13:56] VITALS: BP 120/86; PULSE 88; RESP 19; O2SAT 96
--- NOTE | 2017-08-16 14:35 | ED.DEP ---
ED Disposition - Plan for ED Patient: Chief Complaint: Alt LOC Instructions: ED Altered Loc, ED UTI Cystitis Male Prescriptions: Ciprofloxacin 500 mg GT BID 10 Days ml Referrals: Marcin Joseph MD [Primary Care Provider] -
[2017-08-16 14:51] VITALS: BP 129/80; PULSE 91; RESP 18; O2SAT 96
[2017-08-16 16:04] VITALS: BP 126/92; PULSE 83; RESP 12; O2SAT 97
--- NOTE | 2017-08-16 16:16 | NURSING ---
CALLED [facility] FOR TRANSPORT. ETA IS ABOUT 45 MIN
== END 2017-08-16 17:09 | disposition short-term general hospital (02) ==
PROVIDERS: Emergency Provider Emergency Medicine; Family Provider Family Medicine; PCP Family Medicine
DX: N39.0 Urinary tract infection, site not specified (principal); I69.351 Hemiplegia and hemiparesis following cerebral infarction affecting right dominant side; I69.320 Aphasia following cerebral infarction; I10 Essential (primary) hypertension; Z93.1 Gastrostomy status; Z79.02 Long term (current) use of antithrombotics/antiplatelets; Z79.82 Long term (current) use of aspirin; Z79.899 Other long term (current) drug therapy
CPT/HCPCS: 70450; 71045; 80048; 80076; 81001; 83690; 83880; 84484; 85025; 87086; 87088; 87186; 93005; 96365; 96366; 99285; P9612; A4216; J0744

== ENCOUNTER 2017-10-07 09:19 | Observation (INO) | payer OTHER, MEDICARE, SELFPAY ==
[2017-10-07] VITALS (11 sets, daily range): BP systolic 108–136; BP diastolic 62–97; PULSE 70–154; RESP 17–95; TEMP 36.7–37; O2SAT 18–98; BMI 32.4; BMI 34.4; BMI 34.5
--- NOTE | 2017-10-07 09:31 | EKG12_ITS ---
Test Reason : ALT LOC Blood Pressure : / mmHG Vent. Rate : 092 BPM Atrial Rate : 092 BPM P-R Int : 176 ms QRS Dur : 074 ms QT Int : 354 ms P-R-T Axes : 049 042 047 degrees QTc Int : 437 ms Sinus rhythm with frequent Premature ventricular complexes Otherwise normal ECG Confirmed by NEMYAR PARRA ([id number]), make up editor RACHELLE PRAKASH ([id number]) on 10/19/2017 5:45:17 PM Referred By: LINDA Confirmed By:NEYMAR PARRA
--- NOTE | 2017-10-07 09:31 | CT_ITS ---
STUDY: CT BRAIN WITHOUT CONTRAST REASON FOR EXAM: Male, 67 years old. FOUND UNREPONSIVE, AWAKE AND ALERT UPON ARRIVAL RADIATION DOSAGE (If Supplied By Facility): CTDIvol = ( 44.99 ) mGy, DLP = ( 745.49 ) mGycm TECHNIQUE: Transaxial CT imaging of the brain was performed without administration of intravenous contrast material. Individualized dose optimization techniques were used for this CT. COMPARISON: August 16, 2017 FINDINGS: Again noted is a large left MCA distribution encephalomalacia and gliosis. There is cerebral atrophy with widening of the extra-axial spaces and ventricular dilatation. There are areas of decreased attenuation within the white matter tracts of the supratentorial brain, consistent with microvascular disease changes. There is no intracranial hemorrhage. Normal soft tissue structures. Normal visualized paranasal sinuses. CT/Brain/Head without Contrast IMPRESSION: No acute intracranial abnormality. Chronic left MCA infarct. Electronically Signed: Maricruz Hanna MD at 10:46 EDT Tel , Service support ,
--- NOTE | 2017-10-07 09:31 | RAD_ITS ---
STUDY: X-RAY CHEST REASON FOR EXAM: Male, 67 years old. Mental status changes. TECHNIQUE: Single AP portable view of the chest. COMPARISON: Comparison is made with prior study dated August 16, 2017. FINDINGS: EKG electrodes are seen. Underinflation of the lungs with mild increased markings at the left lung base suggestive of left basilar atelectasis. There is no demonstrated pleural abnormality. Normal size heart. Normal mediastinum and brittany. Normal visualized pulmonary arteries. There is atherosclerotic tortuosity of the aortic arch and descending thoracic aorta. There are diffuse degenerative changes of the visualized thoracic spine. Normal visualized ribs, clavicles, and shoulders. There is no demonstrated abnormality of the visualized soft tissue structures of the upper abdomen. RAD/Chest 1 View (Portable) IMPRESSION: Mild degree of left basilar atelectasis. Electronically Signed: Ottoniel Walls MD at 9:59 EDT Tel [phone], Service support ,
[2017-10-07 09:43] LABS: Absolute Lymphocyte Count 1.68 X10^3/ul (0.83-4.51); Basophil# 0.02 X10^3/uL; Basophil% 0.3 % (0-1); Eosinophil# 0.14 X10^3/uL; Eosinophils% 2.2 % (0-5); Hematocrit 46.9 % (40-54); Hemoglobin 15.4 g/dl (13.0-16.5); Lymphocyte # 1.68 X10^3/ul (4.0); Lymphocyte % 26.6 % (19-41); Mean Corp Hgb Conc 32.8 g/gl (32-36); Mean Corpuscular Hgb 30.1 pg (27.0-32.0); Mean Corpuscular Volume 91.8 fL (80-94); Mean Platelet Vol. 9.4 fl (6.2-12.0); Monocyte# 0.44 X10^3/uL; Neutrophil # 4.03 X10^3/uL (2.7-7.7); Neutrophil % 63.7 % (47-70); Platelet Count 253 K/mm3 (150-450); RBC Distribution Width CV 13.5 % (11.6-14.6); RBC Distribution Width SD 45.4 fl (35.1-43.9); Red Blood Count 5.11 M/mm3 (4.6-6.2); White Blood Count 6.3 K/mm3 (4.4-11.0)
[2017-10-07 09:50] LABS: POSITIVE COUNT NO; POSITIVE DIFFERENTIAL NO; POSITIVE MORPHOLOGY NO
[2017-10-07] MEDS: 0.9% Normal Saline 1,000 ML 150 ML IV ×2 (09:58→18:32)
[2017-10-07 09:59] LABS: ALB/GLOB Ratio 0.9 RATIO (0.9-2.4); AST(SGOT) 19 U/L (15-37); Alanine Aminotransfer ALT/SGPT 28 U/L (16-61); Albumin, Serum 3.6 g/dL (3.2-5.0); Alkaline Phosphatase 114 U/L (45-117); Anion Gap 11 (5-15); BUN 9 mg/dL (7-18); BUN/Creat Ratio 10.1 RATIO (10-20); Calcium,Total 8.8 mg/dL (8.5-10.1); Chloride 103 mmol/L (98-107); Creatinine, Serum 0.89 mg/dL (0.70-1.30); EST Glomerular Filtration Rate 91 mL/min (>60); Est Glom Filt Rate - Afr Amer 110 mL/min (>60); Estimated Creatinine Clearance 90.82 ml/min; Glucose 166 mg/dL (74-106); Potassium 4.2 mmol/L (3.5-5.1); Protein, Total 7.6 g/dL (6.4-8.2); Sodium Level 142 mmol/L (136-145)
[2017-10-07 10:56] LABS: Bacteria 0 SEEN /hpf (None Seen); Mucous, Urine 0 SEEN /hpf (<or=2+); Red Blood Cells-Urine 0 SEEN /hpf (0-5); Squamous Epithelial Cells - UA 0 SEEN /hpf (0-5); White Blood Cells 0 SEEN /hpf (0-5)
[2017-10-07 10:58] LABS: Color, Urine Yellow (Yellow); Glucose, Dipstick Normal (Normal); Ketone-Dipstick Negative (Negative); Leukocyte Esterase-Dipstick Negative /ul (Negative); Nitrite-Dipstick Negative (Negative); Occult Blood-Urine Negative /ul (Negative); Protein-Dipstick Negative (Negative); Urine Bilirubin Dipstick Negative (Negative); Urine Clarity Clear (Clear); Urine Urobilinogen Normal (Normal)
--- NOTE | 2017-10-07 10:58 | ED.VISSUMM ---
- ER Visit Summary Date of Service: 10/07/17 Chief Complaint: [Mental status change] History of Present Illness: The patient is a 67 M [presents to the emergency department via EMS from [facility]. Patient unresponsive this morning. Last known well was at breakfast time around 8:30 AM. 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 Patient is a phasic and cannot give any history. Unable to get history from patient. Patient's had similar episode several months ago per brother who arrived to the emergency department and at that time was attributed to UTI.] Physical Examination: [HEENT-PERRLA, EOMI. Cranial nerves II through XII grossly intact. TMs clear. Mucous membranes moist. No adenopathy. Cardiovascular-regular rate and rhythm without murmur or ectopy Lungs-clear to auscultation, chest wall stable without crepitus or subcu emphysema Abdomen-normoactive bowel sounds, soft, nontender, no rebound or rigidity, no peritoneal signs. Neuro exam-patient awake and follows some commands. Patient attempts to answer questions however is a phasic. Patient moves left upper and lower extremity. Right arm and leg are paralyzed. Extremities-intact ?4, normal range of motion, normal pulses, atraumatic] Test Results: [EKG obtained on arrival showed sinus rhythm with frequent PVCs with a ventricular rate of 92 bpm. CBC with differential showing a 6.3, hemoglobin 15, hematocrit 47, platelets 253. Chemistries unremarkable. LFTs unremarkable. Urinalysis pending. Troponin was less than 0.015. CT scan of the brain showed chronic involutional changes with old left MCA infarct. Chest x-ray showed left basilar atelectasis.] Emergency Department Course and Treatment: [Patient had IV started with normal saline at 1 25 cc an hour.] Treatment Plan: [Admit] etiology of patient's symptoms unclear at this time. Per patient's brother he appears to be back to his baseline. I do not see any evidence of new stroke. Disposition: [] Admit Impression: [Mental status change-resolved] This note was generated with [email or web address] dictation software. It may contain incorrect words, spelling, and punctuation that were not noted in review of the chart prior to signing ED Disposition - Plan for ED Patient: Chief Complaint: Alt LOC Referrals: Marcin Joseph MD [Primary Care Provider] -
--- NOTE | 2017-10-07 11:01 | ED.DCSUM_ITS ---
- ER Visit Summary Date of Service: 10/07/17 Chief Complaint: [Mental status change] History of Present Illness: The patient is a 67 M [presents to the emergency department via EMS from [facility]. Patient unresponsive this morning. Last known well was at breakfast time around 8:30 AM. 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 Patient is a phasic and cannot give any history. Unable to get history from patient. Patient's had similar episode several months ago per brother who arrived to the emergency department and at that time was attributed to UTI.] Physical Examination: [HEENT-PERRLA, EOMI. Cranial nerves II through XII grossly intact. TMs clear. Mucous membranes moist. No adenopathy. Cardiovascular-regular rate and rhythm without murmur or ectopy Lungs-clear to auscultation, chest wall stable without crepitus or subcu emphysema Abdomen-normoactive bowel sounds, soft, nontender, no rebound or rigidity, no peritoneal signs. Neuro exam-patient awake and follows some commands. Patient attempts to answer questions however is a phasic. Patient moves left upper and lower extremity. Right arm and leg are paralyzed. Extremities-intact ?4, normal range of motion, normal pulses, atraumatic] Test Results: [EKG obtained on arrival showed sinus rhythm with frequent PVCs with a ventricular rate of 92 bpm. CBC with differential showing a 6.3, hemoglobin 15, hematocrit 47, platelets 253. Chemistries unremarkable. LFTs unremarkable. Urinalysis pending. Troponin was less than 0.015. CT scan of the brain showed chronic involutional changes with old left MCA infarct. Chest x-ray showed left basilar atelectasis.] Emergency Department Course and Treatment: [Patient had IV started with normal saline at 1 25 cc an hour.] Treatment Plan: [Admit] etiology of patient's symptoms unclear at this time. Per patient's brother he appears to be back to his baseline. I do not see any evidence of new stroke. Disposition: [] Admit Impression: [Mental status change-resolved] This note was generated with [employer] dictation software. It may contain incorrect words, spelling, and punctuation that were not noted in review of the chart prior to signing ED Disposition - Plan for ED Patient: Chief Complaint: Alt LOC Referrals: Marcin Joseph MD [Primary Care Provider] -
--- NOTE | 2017-10-07 13:25 | HP.PCM_ITS ---
Problem List (1) Altered mental status, unspecified Status: Acute Qualifiers: Altered mental status type: unspecified Qualified Code(s): R41.82 - Altered mental status, unspecified (2) UTI (urinary tract infection) Status: Acute (3) Chronic left arterial ischemic stroke, MCA (middle cerebral artery) Status: Chronic (4) Occlusion of left internal carotid artery Status: Chronic (5) Diabetes mellitus type 2 in obese Status: Chronic (6) Hypertension Status: Chronic (7) Hyperlipidemia Status: Chronic History of Present Illness Date of Admission: 10/07/17 The patient is a 67 year old M with history of left MCA infarct in January of 2017, he was later found to have bilateral MCA atheroembolic a stroke along with watershed infarct in left [employer]/MCA and left CHARIS/MCA region.as well as Left total ICA occlusion, left M1 high-grade stenosis right ICA high-grade stenosis he was sent to [facility] in June of this year for carotid stent placement. Today he was noted to be unresponsive this morning right after his breakfast and he was sent to the emergency room for further evaluation. Upon arrival , the patient was alert and oriented to time place and person. She scan of the brain did not show any acute findings. Patient had a similar episode of unresponsiveness in June of this year his EEG during that admission was not diagnostic of seizure activities. Past Medical History Past Medical History (Chronic Problems): Chronic Problems Chronic left arterial ischemic stroke, MCA (middle cerebral artery) (Chronic) Global aphasia (Chronic) Occlusion of left internal carotid artery (Chronic) Diabetes mellitus type 2 in obese (Chronic) Hypertension (Chronic) Hyperlipidemia (Chronic) Dysphagia (Chronic) Status post insertion of percutaneous endoscopic gastrostomy (PEG) tube (Chronic ) 01/[address] Duncan Sleep-disordered breathing (Chronic) LVH (left ventricular hypertrophy) (Chronic) Diastolic dysfunction (Chronic) Allergies No Known Allergies Allergy (Verified 08/16/17 10:29) Home Medications: Ambulatory Orders Medication Instructions Recorded Acetaminophen 1,000 mg GT TID 05/11/17 Bisacodyl [Laxative Suppository] 10 mg RC DAILY PRN PRN 05/11/17 Gabapentin [Neurontin Solution] 300 mg GT TIDCM 05/11/17 Gemfibrozil [Lopid] 600 mg GT BIDAC 05/11/17 Magnesium Hydroxide [Milk of 30 ml GT DAILY PRN PRN 05/11/17 Magnesia] Mineral Oil 118 ml RC DAILY PRN PRN 05/11/17 Aspirin [Aspirin, Baby] 81 mg GT DAILY@0800 08/16/17 Cilostazol [Pletal] 100 mg PO BIDAC 08/16/17 Citalopram [Celexa] 20 mg GT DAILY 08/16/17 Clopidogrel Bisulfate [Plavix] 75 mg GT DAILY 08/16/17 Insulin NPH Human Isophane 5 unit SQ TIDCM 08/16/17 [Humulin N] Lorazepam [Ativan] 0.5 mg GT BREAKFAST 08/16/17 Atorvastatin Calcium [Lipitor] 80 mg GT QHS 10/07/17 Surgical History: - - Patient has a midline incision and after speaking to the brother he has had an abdominal aortic aneurysm repair up at the [facility] in the remote past Psychiatric History: No pertinent psych hx Smoking Status: Never smoker - *Family History Maternal History Items: No pertinent history Paternal History Items: No pertinent history Review of Systems Comment: All Systems were reviewed with pertinent positives mentioned in the HPI above. VTE Information - Inpt Only VTE Present on Admission: No VTE Mechan Device Prophylaxis: SCD's VTE Pharm Prophylaxis ordered?: No - Physical Exam General: Alert, Oriented x3 HEENT: Atraumatic Neck: No JVD Lungs: Clear to auscultation, No wheeze Cardiovascular: Regular rate, Regular Rhythm, Normal S1, Normal S2 Abdomen: Bowel Sounds Present, Non Tender Extremities: No edema Neurological: Cranial nerves II-XII grossly intact, Motor Exam 5/5 strength throughout, - - Right-sided weakness Vital Signs Temp Pulse Resp BP Pulse Ox 98.0 F 95 18 127/85 H 98 10/07/17 09:24 10/07/17 11:31 10/07/17 11:31 10/07/17 11:31 10/07/17 11:31 Oxygen Delivery Method Room Air Weight: 102.8 kg Body Mass Index (BMI) 34.4 Assessment/Plan All Active Problems Altered mental status, unspecified (Acute) UTI (urinary tract infection) (Acute) Influenza A (Resolved) Influenza B (Resolved) Cerebral edema (Resolved) Hypernatremia (Resolved) 1. Acute encephalopathy, transient; he possibly had a seizure, we will continue to monitor him closely ,we iveth consult neurology for now. 2. Old CVA; we will continue on current antiplatelet therapy and statins 3. Ambulatory dysfunction due to right-sided deficits from #2, supportive measures, PT/OT. 4. DVT prophylaxis with Lovenox and SCDs. Code Visit OBSV E&M: [id number] Initial observation care L3
--- NOTE | 2017-10-07 16:26 | PCM.CONS.GEN ---
Reason for Consult Date of Consultation: 10/07/17 Reason for Consultation: loss of consciousness History of Present Illness: The patient is a 67 year old M history as below, pt severely aphasic and unable to give history however he does answer yes/no questions, denies pain, reports he is his normal baseline now, and doesnt remember the events of this am. language is limited to yes/no head nods and nonsensical speech. per h&p:The patient is a 67 year old M with history of left MCA infarct in January of 2017, he was later found to have bilateral MCA atheroembolic a stroke along with watershed infarct in left [employer]/MCA and left CHARIS/MCA region.as well as Left total ICA occlusion, left M1 high-grade stenosis right ICA high-grade stenosis he was sent to [facility] in June of this year for carotid stent placement. Today he was noted to be unresponsive this morning right after his breakfast and he was sent to the emergency room for further evaluation. Upon arrival , the patient was alert and oriented to time place and person. She scan of the brain did not show any acute findings. Patient had a similar episode of unresponsiveness in June of this year his EEG during that admission was not diagnostic of seizure activities. Past Medical History Past Medical History (Chronic Problems): Chronic Problems Chronic left arterial ischemic stroke, MCA (middle cerebral artery) (Chronic) Global aphasia (Chronic) Occlusion of left internal carotid artery (Chronic) Diabetes mellitus type 2 in obese (Chronic) Hypertension (Chronic) Hyperlipidemia (Chronic) Dysphagia (Chronic) 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 Duncan Sleep-disordered breathing (Chronic) LVH (left ventricular hypertrophy) (Chronic) Diastolic dysfunction (Chronic) Allergies No Known Allergies Allergy (Verified 08/16/17 10:29) Home Medications: Ambulatory Orders Medication Instructions Recorded Acetaminophen 1,000 mg GT TID 05/11/17 Bisacodyl [Laxative Suppository] 10 mg RC DAILY PRN PRN 05/11/17 Gabapentin [Neurontin Solution] 300 mg GT TIDCM 05/11/17 Gemfibrozil [Lopid] 600 mg GT BIDAC 05/11/17 Magnesium Hydroxide [Milk of 30 ml GT DAILY PRN PRN 05/11/17 Magnesia] Mineral Oil 118 ml RC DAILY PRN PRN 05/11/17 Aspirin [Aspirin, Baby] 81 mg GT DAILY@0800 08/16/17 Cilostazol [Pletal] 100 mg PO BIDAC 08/16/17 Citalopram [Celexa] 20 mg GT DAILY 08/16/17 Clopidogrel Bisulfate [Plavix] 75 mg GT DAILY 08/16/17 Insulin NPH Human Isophane 5 unit SQ TIDCM 08/16/17 [Humulin N] Lorazepam [Ativan] 0.5 mg GT BREAKFAST 08/16/17 Atorvastatin Calcium [Lipitor] 80 mg GT QHS 10/07/17 Surgical History: - - Patient has a midline incision and after speaking to the brother he has had an abdominal aortic aneurysm repair up at the [facility] in the remote past Psychiatric History: No pertinent psych hx Smoking Status: Never smoker Tobacco Use: Non-smoker - *Family History Maternal History Items: No pertinent history Paternal History Items: No pertinent history Review of Systems Constitutional: Denies: Chills, Fever, Weight Change HEENT: Denies: Head Aches, Sinus Congestion, Sinus Drainage Cardiovascular: Denies: Chest Pain, Palpitations Respiratory: Denies: Cough, Shortness of breath at rest, Sputum production Gastrointestinal: Denies: Abdominal Pain, Nausea, Vomiting Genitourinary: Denies: Dysuria Musculoskeletal: Denies: Joint Pain, Joint Tenderness Skin: Denies: Rash, Wounds Neurological: Denies: Numbness, Tingling, Focal weakness Psychiatric: Denies: Anxiety, Depression, Homicidal Ideations, Suicidal Ideations Hematologic/ Lymphatic: Denies: Easy Bruising, Easy Bleeding Objective: chronic right hemiparesies severe expressive aphasia right field cut - Physical Exam Vital Signs Temp Pulse Resp BP Pulse Ox 36.7 C 70 18 127/85 H 98 10/07/17 09:24 10/07/17 15:15 10/07/17 11:31 10/07/17 11:31 10/07/17 14:00 Oxygen Flow Rate (L/min) 2 Oxygen Delivery Method Nasal Cannula Weight: 102.8 kg Body Mass Index (BMI) 34.4 Laboratory Results - last 24 hr 10/07/17 10/07/17 10/07/17 09:30 09:30 10:50 WBC 6.3 RBC 5.11 Hgb 15.4 Hct 46.9 MCV 91.8 MCH 30.1 MCHC 32.8 RDW 13.5 RDW Differential 45.4 H Plt Count 253 MPV 9.4 Immature Gran % (Auto) 0.200 Neut % (Auto) 63.7 Lymph % (Auto) 26.6 [place]upe % (Auto) 7.0 Eos % (Auto) 2.2 Baso % (Auto) 0.3 Absolute Neuts (auto) 4.0 Absolute Lymphs (auto) 1.68 Total Counted Not Reportable Sodium 142 Potassium 4.2 Chloride 103 Carbon Dioxide 28.0 Anion Gap 11 BUN 9 Creatinine 0.89 Estim Creat Clear Calc 90.82 Est GFR (MDRD) Af Amer 110 Est GFR (MDRD) Non-Af 91 BUN/Creatinine Ratio 10.1 Glucose 166 H Calcium 8.8 Total Bilirubin 0.30 AST 19 ALT 28 Alkaline Phosphatase 114 Troponin I < 0.015 Total Protein 7.6 Albumin 3.6 Globulin 4.0 Albumin/Globulin Ratio 0.9 Urine Color Yellow Urine Clarity Clear Urine pH 6.0 Ur Specific Bend 1.010 Urine Protein Negative Urine Glucose (UA) Normal Urine Ketones Negative Urine Occult Blood Negative Urine Nitrite Negative Urine Bilirubin Negative Urine Urobilinogen Normal Ur Leukocyte Esterase Negative Urine RBC 0 SEEN Urine WBC 0 SEEN Ur Squamous Epith Cells 0 SEEN Urine Bacteria 0 SEEN Urine Mucus [address] reviewed, chronic left mca infarct, large Current Home Med List Medication Instructions Recorded Confirmed Type Acetaminophen 1,000 mg GT TID 05/11/17 10/07/17 History Bisacodyl [Laxative Suppository] 10 mg RC DAILY PRN PRN 05/11/17 10/07/17 History Gabapentin [Neurontin Solution] 300 mg GT TIDCM 05/11/17 10/07/17 History Gemfibrozil [Lopid] 600 mg GT BIDAC 05/11/17 10/07/17 History Magnesium Hydroxide [Milk of 30 ml GT DAILY PRN PRN 05/11/17 10/07/17 History Magnesia] Mineral Oil 118 ml RC DAILY PRN PRN 05/11/17 10/07/17 History Aspirin [Aspirin, Baby] 81 mg GT DAILY@0800 08/16/17 10/07/17 History Cilostazol [Pletal] 100 mg PO BIDAC 08/16/17 10/07/17 History Citalopram [Celexa] 20 mg GT DAILY 08/16/17 10/07/17 History Clopidogrel Bisulfate [Plavix] 75 mg GT DAILY 08/16/17 10/07/17 History Insulin NPH Human Isophane 5 unit SQ TIDCM 08/16/17 10/07/17 History [Humulin N] Lorazepam [Ativan] 0.5 mg GT BREAKFAST 08/16/17 10/07/17 History Atorvastatin Calcium [Lipitor] 80 mg GT QHS 10/07/17 10/07/17 History Current Medications Generic Name Dose Route Start Last Admin Trade Name Freq PRN Reason Stop Dose Admin Acetaminophen 1,000 mg 10/07/17 22:00 Tylenol PO TID BRANDON Aspirin 81 mg 10/08/17 08:00 Aspirin, Baby GT DAILY@0800 BRANDON Atorvastatin Calcium 80 mg 10/07/17 22:00 Lipitor GT QHS BRANDON Bisacodyl 10 mg 10/07/17 15:38 Dulcolax RECTAL DAILY PRN PRN Constipation Cilostazol 100 mg 10/07/17 16:30 Pletal PO BIDAC [facility] Citalopram Hydrobromide 20 mg 10/08/17 10:00 Celexa GT DAILY [facility] Clopidogrel Bisulfate 75 mg 10/08/17 10:00 Plavix GT DAILY [facility] Enoxaparin Sodium 40 mg 10/08/17 10:00 Lovenox SC DAILY BRANDON Gabapentin 300 mg 10/07/17 17:00 Neurontin GT TIDCM [facility] Gemfibrozil 600 mg 10/07/17 16:30 Lopid GT BIDAC [facility] Sodium Chloride 1,000 mls @ 150 mls/hr 10/07/17 09:35 10/07/17 09:58 IV 150 mls/hr .[id number] [facility] Administration Insulin Human NPH 5 units 10/07/17 16:00 Humulin N (Bkc) SC TIDAC BRANDON Lorazepam 0.5 mg 10/08/17 08:00 Ativan GT BREAKFAST BRANDON Magnesium Hydroxide 30 ml 10/07/17 15:38 Milk Of Magnesia GT DAILY PRN PRN Constipation Mineral Oil 1 bottle 10/07/17 15:38 Mineral Oil RECTAL DAILY PRN PRN Constipation Sodium Chloride 5 - 30 ml 10/07/17 14:00 IV UD PRN SALINE FLUSH Assessment/Plan All Active Problems Altered mental status, unspecified (Acute) UTI (urinary tract infection) (Acute) Influenza A (Resolved) Influenza B (Resolved) Cerebral edema (Resolved) Hypernatremia (Resolved) loss of consciousness, unknown cause, history of large left mca stroke, history of similar events in jun with neg workup including eeg mri brain eeg tele continue current meds therapies
--- NOTE | 2017-10-07 16:31 | MRI_ITS ---
MR Brain WO/W Contrast INDICATION: CVA, H/O PRIOR STROKE, PT NONVERBAL, UNABLE TO OBTAIN HX COMPARISON: MRI brain June 22, 2017 TECHNIQUE: Multiplanar multisequence MRI examination of the brain without and with IV contrast. 10 mL of gadavist given intravenously. FINDINGS: There is a 2 x 1 cm focus of restricted diffusion in the left frontal lobe within the area of encephalomalacia compatible with re- infarction. Finding is confirmed on the ADC map. Minimally decreased signal is noted in this region on the gradient-echo imaging, suggestive of possible small petechial hemorrhages. No evidence of haja hematoma. Underlying chronic left MCA territory infarct with encephalomalacia is noted and expected dilatation of the left lateral ventricle. There are confluent periventricular and patchy subcortical T2/FLAIR signal hyperintensities compatible with underlying chronic lacunar infarcts and chronic ischemic microvascular white matter changes. There is no evidence of mass effect or midline shift. After contrast administration, there is cortical enhancement in the left MCA territory infarct, not unusual. No enhancing masses are seen. A partially empty sella is incidentally with what appears to represent a 2 cm suprasellar arachnoid cyst. There is no significant flow void in the left cavernous carotid artery suggestive of occlusion. Flow voids are seen in the basilar artery and right cavernous carotid artery. MRI/Brain W/WO Contrast IMPRESSION: Acute on chronic left MCA territory infarct as detailed above. No evidence of hemorrhage or mass. (Minimal petechial hemorrhages cannot be excluded in the 1 x 2 cm focus of left frontal acute infarct) Findings suggestive of left ICA occlusion. at 2059 Reported and signed by: Alana Ortiz MD N.B. : The above information has been verbally conveyed by Alana Ortiz MD to , Referring Physician, on 10/07/2017 21:14:07 (ET). Electronically Signed: Alana Ortiz MD at 20:58 EDT Tel , Service support , N.B. : The above information has been verbally conveyed by Alana Ortiz MD to , Referring Physician, on 10/07/2017 21:14:07 (ET).
--- NOTE | 2017-10-07 16:33 | CON.PCM_ITS ---
Reason for Consult Date of Consultation: 10/07/17 Reason for Consultation: loss of consciousness History of Present Illness: The patient is a 67 year old M history as below, pt severely aphasic and unable to give history however he does answer yes/no questions, denies pain, reports he is his normal baseline now, and doesnt remember the events of this am. language is limited to yes/no head nods and nonsensical speech. per h&p:The patient is a 67 year old M with history of left MCA infarct in January of 2017, he was later found to have bilateral MCA atheroembolic a stroke along with watershed infarct in left BILLET GRINDER/MCA and left CHARIS/MCA region.as well as Left total ICA occlusion, left M1 high-grade stenosis right ICA high- grade stenosis he was sent to [facility] in June of this year for carotid stent placement. Today he was noted to be unresponsive this morning right after his breakfast and he was sent to the emergency room for further evaluation. Upon arrival , the patient was alert and oriented to time place and person. She scan of the brain did not show any acute findings. Patient had a similar episode of unresponsiveness in June of this year his EEG during that admission was not diagnostic of seizure activities. Past Medical History Past Medical History (Chronic Problems): Chronic Problems Chronic left arterial ischemic stroke, MCA (middle cerebral artery) (Chronic) Global aphasia (Chronic) Occlusion of left internal carotid artery (Chronic) Diabetes mellitus type 2 in obese (Chronic) Hypertension (Chronic) Hyperlipidemia (Chronic) Dysphagia (Chronic) Status post insertion of percutaneous endoscopic gastrostomy (PEG) tube (Chronic ) 01/[address] Duncan Sleep-disordered breathing (Chronic) LVH (left ventricular hypertrophy) (Chronic) Diastolic dysfunction (Chronic) Allergies No Known Allergies Allergy (Verified 08/16/17 10:29) Home Medications: Ambulatory Orders Medication Instructions Recorded Acetaminophen 1,000 mg GT TID 05/11/17 Bisacodyl [Laxative Suppository] 10 mg RC DAILY PRN PRN 05/11/17 Gabapentin [Neurontin Solution] 300 mg GT TIDCM 05/11/17 Gemfibrozil [Lopid] 600 mg GT BIDAC 05/11/17 Magnesium Hydroxide [Milk of 30 ml GT DAILY PRN PRN 05/11/17 Magnesia] Mineral Oil 118 ml RC DAILY PRN PRN 05/11/17 Aspirin [Aspirin, Baby] 81 mg GT DAILY@0800 08/16/17 Cilostazol [Pletal] 100 mg PO BIDAC 08/16/17 Citalopram [Celexa] 20 mg GT DAILY 08/16/17 Clopidogrel Bisulfate [Plavix] 75 mg GT DAILY 08/16/17 Insulin NPH Human Isophane 5 unit SQ TIDCM 08/16/17 [Humulin N] Lorazepam [Ativan] 0.5 mg GT BREAKFAST 08/16/17 Atorvastatin Calcium [Lipitor] 80 mg GT QHS 10/07/17 Surgical History: - - Patient has a midline incision and after speaking to the brother he has had an abdominal aortic aneurysm repair up at the [facility] in the remote past Psychiatric History: No pertinent psych hx Smoking Status: Never smoker Tobacco Use: Non-smoker - *Family History Maternal History Items: No pertinent history Paternal History Items: No pertinent history Review of Systems Constitutional: Denies: Chills, Fever, Weight Change HEENT: Denies: Head Aches, Sinus Congestion, Sinus Drainage Cardiovascular: Denies: Chest Pain, Palpitations Respiratory: Denies: Cough, Shortness of breath at rest, Sputum production Gastrointestinal: Denies: Abdominal Pain, Nausea, Vomiting Genitourinary: Denies: Dysuria Musculoskeletal: Denies: Joint Pain, Joint Tenderness Skin: Denies: Rash, Wounds Neurological: Denies: Numbness, Tingling, Focal weakness Psychiatric: Denies: Anxiety, Depression, Homicidal Ideations, Suicidal Ideations Hematologic/ Lymphatic: Denies: Easy Bruising, Easy Bleeding Objective: chronic right hemiparesies severe expressive aphasia right field cut - Physical Exam Vital Signs Temp Pulse Resp BP Pulse Ox 36.7 C 70 18 127/85 H 98 10/07/17 09:24 10/07/17 15:15 10/07/17 11:31 10/07/17 11:31 10/07/17 14:00 Oxygen Flow Rate (L/min) 2 Oxygen Delivery Method Nasal Cannula Weight: 102.8 kg Body Mass Index (BMI) 34.4 Laboratory Results - last 24 hr 10/07/17 10/07/17 10/07/17 09:30 09:30 10:50 WBC 6.3 RBC 5.11 Hgb 15.4 Hct 46.9 MCV 91.8 MCH 30.1 MCHC 32.8 RDW 13.5 RDW Differential 45.4 H Plt Count 253 MPV 9.4 Immature Gran % (Auto) 0.200 Neut % (Auto) 63.7 Lymph % (Auto) 26.6 [place] % (Auto) 7.0 Eos % (Auto) 2.2 Baso % (Auto) 0.3 Absolute Neuts (auto) 4.0 Absolute Lymphs (auto) 1.68 Total Counted Not Reportable Sodium 142 Potassium 4.2 Chloride 103 Carbon Dioxide 28.0 Anion Gap 11 BUN 9 Creatinine 0.89 Estim Creat Clear Calc 90.82 Est GFR (MDRD) Af Amer 110 Est GFR (MDRD) Non-Af 91 BUN/Creatinine Ratio 10.1 Glucose 166 H Calcium 8.8 Total Bilirubin 0.30 AST 19 ALT 28 Alkaline Phosphatase 114 Troponin I < 0.015 Total Protein 7.6 Albumin 3.6 Globulin 4.0 Albumin/Globulin Ratio 0.9 Urine Color Yellow Urine Clarity Clear Urine pH 6.0 Ur Specific [place] 1.010 Urine Protein Negative Urine Glucose (UA) Normal Urine Ketones Negative Urine Occult Blood Negative Urine Nitrite Negative Urine Bilirubin Negative Urine Urobilinogen Normal Ur Leukocyte Esterase Negative Urine RBC 0 SEEN Urine WBC 0 SEEN Ur Squamous Epith Cells 0 SEEN Urine Bacteria 0 SEEN Urine Mucus [address] reviewed, chronic left mca infarct, large Current Home Med List Medication Instructions Recorded Confirmed Type Acetaminophen 1,000 mg GT TID 05/11/17 10/07/17 History Bisacodyl [Laxative Suppository] 10 mg RC DAILY PRN PRN 05/11/17 10/07/17 History Gabapentin [Neurontin Solution] 300 mg GT TIDCM 05/11/17 10/07/17 History Gemfibrozil [Lopid] 600 mg GT BIDAC 05/11/17 10/07/17 History Magnesium Hydroxide [Milk of 30 ml GT DAILY PRN PRN 05/11/17 10/07/17 History Magnesia] Mineral Oil 118 ml RC DAILY PRN PRN 05/11/17 10/07/17 History Aspirin [Aspirin, Baby] 81 mg GT DAILY@0800 08/16/17 10/07/17 History Cilostazol [Pletal] 100 mg PO BIDAC 08/16/17 10/07/17 History Citalopram [Celexa] 20 mg GT DAILY 08/16/17 10/07/17 History Clopidogrel Bisulfate [Plavix] 75 mg GT DAILY 08/16/17 10/07/17 History Insulin NPH Human Isophane 5 unit SQ TIDCM 08/16/17 10/07/17 History [Humulin N] Lorazepam [Ativan] 0.5 mg GT BREAKFAST 08/16/17 10/07/17 History Atorvastatin Calcium [Lipitor] 80 mg GT QHS 10/07/17 10/07/17 History Current Medications Generic Name Dose Route Start Last Admin Trade Name Freq PRN Reason Stop Dose Admin Acetaminophen 1,000 mg 10/07/17 22:00 Tylenol PO TID BRANDON Aspirin 81 mg 10/08/17 08:00 Aspirin, Baby GT DAILY@0800 BRANDON Atorvastatin Calcium 80 mg 10/07/17 22:00 Lipitor GT QHS BRANDON Bisacodyl 10 mg 10/07/17 15:38 Dulcolax RECTAL DAILY PRN PRN Constipation Cilostazol 100 mg 10/07/17 16:30 Pletal PO BIDAC [facility] Citalopram Hydrobromide 20 mg 10/08/17 10:00 Celexa GT DAILY [facility] Clopidogrel Bisulfate 75 mg 10/08/17 10:00 Plavix GT DAILY [facility] Enoxaparin Sodium 40 mg 10/08/17 10:00 Lovenox SC DAILY BRANDON Gabapentin 300 mg 10/07/17 17:00 Neurontin GT TIDCM [facility] Gemfibrozil 600 mg 10/07/17 16:30 Lopid GT BIDAC [facility] Sodium Chloride 1,000 mls @ 150 mls/hr 10/07/17 09:35 10/07/17 09:58 IV 150 mls/hr .[id number] [facility] Administration Insulin Human NPH 5 units 10/07/17 16:00 Humulin N (Bkc) SC TIDAC BRANDON Lorazepam 0.5 mg 10/08/17 08:00 Ativan GT BREAKFAST BRANDON Magnesium Hydroxide 30 ml 10/07/17 15:38 Milk Of Magnesia GT DAILY PRN PRN Constipation Mineral Oil 1 bottle 10/07/17 15:38 Mineral Oil RECTAL DAILY PRN PRN Constipation Sodium Chloride 5 - 30 ml 10/07/17 14:00 IV UD PRN SALINE FLUSH Assessment/Plan All Active Problems Altered mental status, unspecified (Acute) UTI (urinary tract infection) (Acute) Influenza A (Resolved) Influenza B (Resolved) Cerebral edema (Resolved) Hypernatremia (Resolved) loss of consciousness, unknown cause, history of large left mca stroke, history of similar events in jun with neg workup including eeg mri brain eeg tele continue current meds therapies
[2017-10-07 17:51] LABS: Bedside Glucose 99 mg/dL (70-110)
[2017-10-07] MEDS: Gemfibrozil 600 MG Tablet GT (17:54)
[2017-10-07] MEDS: Gabapentin 300 MG Capsule GT (17:54)
[2017-10-07] MEDS: Cilostazol 50 MG Tablet 100 MG PO (17:54)
[2017-10-07] MEDS: Insulin NPH Human 100 UNITS/ML PEN SC (17:56)
--- NOTE | 2017-10-07 19:54 | NURSING ---
Difficult to assess orientation status d/t prior strokes. Pt is alert at this time. Unable to do an NIH at this time as right arm/leg are flaccid, difficulty assessing orientation, and inability to comprehend.
[2017-10-07] MEDS: 0.9% NaCl Peripheral Flush Adult/Peds IV (20:47)
[2017-10-07] MEDS: Atorvastatin Calcium 80 MG Tablet GT (20:48)
[2017-10-07] MEDS: Acetaminophen 500 MG Tablet 1000 MG PO (20:48)
[2017-10-08] VITALS (7 sets, daily range): BP systolic 99–134; BP diastolic 57–74; PULSE 75–90; RESP 16–18; TEMP 36.6–37.1; O2SAT 95–97; BMI 34.4
[2017-10-08] MEDS: 0.9% Normal Saline 1,000 ML 150 ML IV ×2 (03:17→10:30)
[2017-10-08] MEDS: Acetaminophen 500 MG Tablet 1000 MG PO ×2 (05:41→13:17)
[2017-10-08 06:18] LABS: Absolute Neutrophil Count 3.4 X10^3/uL (2.0-7.7); Basophil# 0.04 X10^3/uL; Basophil% 0.6 % (0-1); Eosinophil# 0.16 X10^3/uL; Eosinophils% 2.5 % (0-5); Hematocrit 41.8 % (40-54); Hemoglobin 13.4 g/dl (13.0-16.5); Mean Corp Hgb Conc 32.1 g/gl (32-36); Mean Corpuscular Hgb 29.6 pg (27.0-32.0); Mean Corpuscular Volume 92.5 fL (80-94); Mean Platelet Vol. 9.3 fl (6.2-12.0); Monocyte# 0.68 X10^3/uL; Monocyte% 10.7 % (0-10); Neutrophil # 3.38 X10^3/uL (2.7-7.7); Platelet Count 245 K/mm3 (150-450); RBC Distribution Width CV 13.6 % (11.6-14.6); RBC Distribution Width SD 46.1 fl (35.1-43.9); Red Blood Count 4.52 M/mm3 (4.6-6.2); White Blood Count 6.4 K/mm3 (4.4-11.0)
[2017-10-08 06:34] LABS: Anion Gap 8 (5-15); BUN 8 mg/dL (7-18); BUN/Creat Ratio 10.9 RATIO (10-20); Calcium,Total 8.4 mg/dL (8.5-10.1); Chloride 111 mmol/L (98-107); Creatinine, Serum 0.74 mg/dL (0.70-1.30); EST Glomerular Filtration Rate 113 mL/min (>60); Est Glom Filt Rate - Afr Amer 137 mL/min (>60); Estimated Creatinine Clearance 96.28 ml/min; Glucose 113 mg/dL (74-106); Magnesium 2.1 mg/dL (1.6-2.6); Sodium Level 146 mmol/L (136-145)
[2017-10-08 06:36] LABS: POSITIVE COUNT NO; POSITIVE DIFFERENTIAL NO; POSITIVE MORPHOLOGY NO
[2017-10-08 07:06] LABS: Bedside Glucose 119 mg/dL (70-110)
[2017-10-08] MEDS: Insulin NPH Human 100 UNITS/ML PEN SC ×2 (09:13→11:43)
[2017-10-08] MEDS: Aspirin 81 MG TAB.CHEW GT (09:14)
[2017-10-08] MEDS: Gemfibrozil 600 MG Tablet GT (09:14)
[2017-10-08] MEDS: Cilostazol 50 MG Tablet 100 MG PO (09:14)
[2017-10-08] MEDS: Gabapentin 300 MG Capsule GT ×2 (09:15→11:44)
[2017-10-08] MEDS: Clopidogrel Bisulfate 75 MG Tablet GT (09:16)
[2017-10-08] MEDS: Citalopram 20 MG Tablet GT (09:16)
[2017-10-08] MEDS: Enoxaparin 40 MG/0.4 ML Syringe SC (09:16)
[2017-10-08] MEDS: LORazepam 0.5 MG Tablet GT (09:19)
--- NOTE | 2017-10-08 10:47 | EEG ---
- Electroencephalogram Date of service 10/08/17 This is an 18 channel EEG performed on this 67-year-old male with a history of left MCA distribution infarct and recurrent hospitalization for loss of consciousness. International 10-20 electrode placement protocol is utilized as well as photic stimulation and EKG reference leads. Background activity is mildly slow on the right side at 7 Hz, there is increased slowing on the left side at 4-6 Hz. There are no lateralizing or epileptiform changes. The patient remained awake throughout the recording. Photic stimulation does generate a normal symmetric drive response in the posterior leads. EKG is normal sinus rhythm throughout the recording. Impression: Abnormal electroencephalogram due to the presence of the diffuse slowing and worsening slowing on the left side this is presumed to be due to the patient's previous history of left MCA distribution infarct. There are no epileptiform changes noted.
--- NOTE | 2017-10-08 11:06 | PN.NEURO_ITS ---
Subjective: no new complaints, awake and alert denies sx of lightheadedness Objective: severe expressive aphasia right hemiparesis - Physical Exam General: Alert Vital Signs Temp Pulse Resp BP Pulse Ox 36.6 C 80 16 134/74 H 97 10/08/17 09:10 10/08/17 09:10 10/08/17 09:10 10/08/17 09:10 10/08/17 09:10 Oxygen Flow Rate (L/min) 2 Oxygen Delivery Method Nasal Cannula Weight: 102.8 kg Body Mass Index (BMI) 34.4 Intake and Output for Last 24 Hours 10/06/17 10/07/17 10/08/17 23:59 23:59 23:59 Intake Total 735 / 735 1563 / 1563 Balance 735 / 735 1563 / 1563 Laboratory Tests Past 24 Hrs 10/08/17 10/08/17 05:54 05:54 WBC 6.4 RBC 4.52 L Hgb 13.4 Hct 41.8 MCV 92.5 MCH 29.6 MCHC 32.1 RDW 13.6 RDW Differential 46.1 H Plt Count 245 MPV 9.3 Immature Gran % (Auto) 0.200 Neut % (Auto) 53.0 Lymph % (Auto) 33.0 Esmeralda % (Auto) 10.7 H Eos % (Auto) 2.5 Baso % (Auto) 0.6 Absolute Neuts (auto) 3.4 Absolute Lymphs (auto) 2.10 Total Counted Not Reportable Sodium 146 H Potassium 4.0 Chloride 111 H Carbon Dioxide 27.0 Anion Gap 8 BUN 8 Creatinine 0.74 Estim Creat Clear Calc 96.28 Est GFR (MDRD) Af Amer 137 Est GFR (MDRD) Non-Af 113 BUN/Creatinine Ratio 10.9 Glucose 113 H Calcium 8.4 L Magnesium 2.1 POC Glucose 10/08/17 10/07/17 07:00 17:46 POC Glucose 119 H 99 eeg: no seizures, slow mri small acute infarct within old infarct Medical Necessity - Tobacco Use Smoking Status: Never smoker Tobacco Use: Non-smoker Assessment/Plan All Active Problems Altered mental status, unspecified (Acute) UTI (urinary tract infection) (Acute) Influenza A (Resolved) Influenza B (Resolved) Cerebral edema (Resolved) Hypernatremia (Resolved) small watershed infarct due to syncope mri brain shows very small, likely inconsequential infarct likely on the basis of watershed due to right carotid occlusion eeg: no seizures rec avoid antihypertensive meds, goal sbp >120 adequate hydration avoid hypoglycemic events ok for dc from neuro
--- NOTE | 2017-10-08 11:20 | CASEMGMT ---
Updates faxed to [facility]. Chiqui TATUM [employer]OR[employer] DELIVERY DRIVER
[2017-10-08 12:01] LABS: Bedside Glucose 136 mg/dL (70-110)
--- NOTE | 2017-10-08 14:04 | TREXTCAR_ITS ---
- Diet 10/07/17 15:25 Diet: Cardiac: Calorie-Controlled Food consistency:: Mechanical Soft/Ground Liquid Consistency:: One [place] Thick Dietary Modifications:: One [place] Thick Liquids Mechanical Soft Diet Is pt able to select menu?: No Diet Comments: TOTAL FEED; seated upright, reduced rate of intake How many daily calories?: 1800 calorie - Problem/Diagnosis (1) Altered mental status, unspecified Status: Acute Current Visit: No (2) UTI (urinary tract infection) Status: Acute Current Visit: No (3) Chronic left arterial ischemic stroke, MCA (middle cerebral artery) Status: Chronic Current Visit: No (4) Occlusion of left internal carotid artery Status: Chronic Current Visit: No (5) Diabetes mellitus type 2 in obese Status: Chronic Current Visit: No (6) Hypertension Status: Chronic Current Visit: No (7) Hyperlipidemia Status: Chronic Current Visit: No - Allergies/Procedures Done in Hospital Allergies/Adverse Reactions: Allergies No Known Allergies Allergy (Verified 08/16/17 10:29) - Type of Care/Length of Stay Estimated LOS: Convalescent Care Less Than 30 days Type of Care Needed: Skilled Rehab Potential: Fair Prognosis: Fair - Additional Orders/Day of Discharge H&P will serve as current which was dated: 10/07/17 Day of Discharge: 10/08/17 - Dietary and Speech Recommendations Dietitian Recommendations/Changes: As medically able, rec AMANDA to CHO Control/ Cardiac - consistency per [facility] Speech Linguistic Eval Summary: Pt. is a 67 YOM admitted to [facility] on 10/07/2017 d/ t period of unresponsiveness this a.m. at SNF. Pt.?s PMHx is significant for previous cerebrovascular accident involving the insula resulting in dysphagia requiring PEG placement, aphasia, and apraxia; chronic ischemic heart disease, type II diabetes mellitus, hyperlipidemia, essential hypertension, obstructive sleep apnea. Pt. well known to [facility] department from multiple previous admissions; Pt. currently resides at [facility], advanced to a mechanical soft, nectar thickened liquid diet w/ PEG supplementation as needed; unable to further obtain recent history d/t severity of apraxia / aphasia. 11/2016 MBS revealed moderate to severe oropharyngeal dysphagia (R13.12). 01/19 percutaneous endoscopic gastrostomy (PEG) tube placed. 02/16/2017 MBS revealed moderate oropharyngeal dysphagia (R13.12). 06/22/2017 MRI revealed multiple bilateral acute infarcts involving the right frontal and parietal lobes occurring in a watershed distribution; encephalomalacia involving the left frontal and parietal lobes, in addition to the left temporal lobes probably related to old infarct; occlusion of left sided petrous and cavernous internal carotid arteries. 10/07/2017 CT revealed no acute intracranial abnormality; chronic left MCA infarct. 10/07/2017 CXR revealed mild degree of left basilar atelectasis. Pt. presents w/ SEVERE global aphasia w/ apraxia secondary to a previous left posterior frontal lobe cerebrovascular accident involving the insula and multiple bilateral acute infarcts involving the right frontal and parietal lobes occurring in a watershed distribution. Pt.?s expressive communication abilities appear to be somewhat consistent w/ prior admissions, w/ baseline functioning significantly impaired and unintelligible upon report. Will focus intervention efforts towards dysphagia vs. expressive communication abilities. - Follow Up Care
--- NOTE | 2017-10-08 14:05 | DS.PCM_ITS ---
Discharge Date and Diagnosis Date of Admission: 10/07/17 Date of Discharge: 10/08/17 - Secondary Discharge Diagnosis Chronic Problems Chronic left arterial ischemic stroke, MCA (middle cerebral artery) (Chronic) Global aphasia (Chronic) Occlusion of left internal carotid artery (Chronic) Diabetes mellitus type 2 in obese (Chronic) Hypertension (Chronic) Hyperlipidemia (Chronic) Dysphagia (Chronic) Status post insertion of percutaneous endoscopic gastrostomy (PEG) tube (Chronic ) 01/[address] Duncan Sleep-disordered breathing (Chronic) LVH (left ventricular hypertrophy) (Chronic) Diastolic dysfunction (Chronic) Hospital Course and Treatment Operations: None Summary of Care Provided: The patient is a 67 year old M with history of left MCA infarct in January of 2017, he was later found to have bilateral MCA atheroembolic a stroke along with watershed infarct in left HEAD OF DIGITAL ADVERTISING & INTEGRATION/MCA and left CHARIS/MCA region.as well as Left total ICA occlusion, left M1 high-grade stenosis right ICA high-grade stenosis he was sent to [facility] in June of this year for carotid stent placement. Today he was noted to be unresponsive this morning right after his breakfast and he was sent to the emergency room for further evaluation. Upon arrival , the patient was alert and oriented to time place and person. She scan of the brain did not show any acute findings. Patient had a similar episode of unresponsiveness in June of this year his EEG during that admission was not diagnostic of seizure activities. The patient was admitted to the progressive care unit for monitoring, neurology was consulted and MRI of the brain and EEG were obtained. The EEG did not show any evidence of seizures, MRI showed an acute on chronic left MCA territory infarct , likely a consequence of watershed due to right carotid occlusion, recommended to avoid antihypertensive therapy and to keep systolic blood pressure more than 120. He was discharged back to the [facility] in stable condition. Physical exam at the time of discharge; VSS He was alert and oriented to time place and person. He did not appear to be any form of distress. S1 and S2 heard no murmur or gallop Lung exam was clear to auscultation with no adventitious sounds. Abdomen was soft nontender with normal bowel sounds. extremity exam did not reveal any edema, palpable pulses bilaterally. Neurologic ; aphasic, dense right-sided deficit. . Discharge Diet: No Restrictions Home Medications: Medications to take at Discharge Acetaminophen 1,000 mg GT TID 05/11/17 Bisacodyl [Laxative Suppository] 10 mg RC DAILY PRN PRN 05/11/17 Gabapentin [Neurontin Solution] 300 mg GT TIDCM 05/11/17 Gemfibrozil [Lopid] 600 mg GT BIDAC 05/11/17 Magnesium Hydroxide [Milk of Magnesia] 30 ml GT DAILY PRN PRN 05/11/17 Mineral Oil 118 ml RC DAILY PRN PRN 05/11/17 Aspirin [Aspirin, Baby] 81 mg GT DAILY@0800 08/16/17 Cilostazol [Pletal] 100 mg PO BIDAC 08/16/17 Citalopram [Celexa] 20 mg GT DAILY 08/16/17 Clopidogrel Bisulfate [Plavix] 75 mg GT DAILY 08/16/17 Insulin NPH Human Isophane [Humulin N] 5 unit SQ TIDCM 08/16/17 Atorvastatin Calcium [Lipitor] 80 mg GT QHS 10/07/17 Lorazepam [Ativan] 0.5 mg GT BREAKFAST #10 tab 10/08/17 Following Prescrptions Were Given to Patient: Lorazepam [Ativan] 0.5 mg GT BREAKFAST #10 tab Primary Care Physician: Marcin Joseph MD [Primary Care Provider] - Medical Necessity - Tobacco Use Smoking Status: Never smoker Tobacco Use: Non-smoker Meaningful Use Info Meaningful Use Diagnoses (Choose all that apply): None applicable Code Visit OBSV E&M: 30450 Observation care discharge
--- NOTE | 2017-10-08 14:23 | CASEMGMT ---
Patient is ready for d/c back to [facility]. Orders were faxed to [facility] and schedule II med was faxed to [facility]. Called [facility] and arranged for patient to get picked up at 4p via cot. JUDY notified RN and left a message for patient's brother. [facility] was also notified. Plan: d/c back to [facility] under intermediate level of care. [facility] [place] him via cot. Chiqui TATUM MSW
== END 2017-10-08 14:04 | disposition skilled nursing facility (03) ==
LOC: ED 10:10 → PCU 11:37
PROVIDERS: Family Medicine; Admitting Provider Internal Medicine; Emergency Provider Emergency Medicine; Family Provider Family Medicine; PCP Family Medicine; Visit Provider Internal Medicine
DX: R41.82 Altered mental status, unspecified (principal); I69.320 Aphasia following cerebral infarction; E78.5 Hyperlipidemia, unspecified; I10 Essential (primary) hypertension; E11.9 Type 2 diabetes mellitus without complications; E66.9 Obesity, unspecified; Z68.34 Body mass index [BMI] 34.0-34.9, adult; Z71.3 Dietary counseling and surveillance; I69.391 Dysphagia following cerebral infarction; I69.351 Hemiplegia and hemiparesis following cerebral infarction affecting right dominant side; R13.12 Dysphagia, oropharyngeal phase; Z79.899 Other long term (current) drug therapy; Z79.82 Long term (current) use of aspirin; Z79.02 Long term (current) use of antithrombotics/antiplatelets
CPT/HCPCS: 36415; 70450; 70553; 71045; 80048; 80053; 81001; 82962; 83735; 84484; 85025; 92523; 92526; 93005; 95819; 96360; 96361; 96372; 97162; 97165; 97802; 99218; 99285; A9585; J7030; A4216; G0378

== ENCOUNTER 2017-11-26 16:22 | Emergency (ER) | payer MEDICARE, OTHER, SELFPAY ==
[2017-11-26 16:25] VITALS: BP 142/84; PULSE 75; RESP 18; TEMP 37; O2SAT 93; BMI 36.8
--- NOTE | 2017-11-26 17:06 | ED.VISSUMM ---
- ER Visit Summary Date of Service: 11/26/17 Chief Complaint: Feeding tube came out History of Present Illness: The patient is a 67 M history of prior stroke, encephalopathy and a aphasia. Also diabetes, hypertension and high cholesterol. Patient has had a left upper quadrant PEG or feeding tube in since at least last January if not longer. He is currently a custodial resident at [place]. It somehow got pulled out today and he was sent in to have it replaced. Patient himself is unable to give any history due to his severe speech impediment from his prior stroke. Physical Examination: Well-appearing 67-year-old male. Vital signs are stable. He is afebrile. He does not look septic or toxic. He is in no acute distress. H EENT exam unremarkable. Neck nontender. Lungs clear to auscultation bilaterally. Heart regular rate and rhythm no murmur. Abdomen is soft. Nondistended normal bowel sounds no peritoneal signs. Extremities are nontender without edema. Neurologically he has had a large stroke in the past. He is a phasic. He does follow commands. He is trying to speak but I am unable to understand it. Test Results: KUB with contrast was done after the new PEG tube was placed and she was up to be in the stomach in good position. Emergency Department Course and Treatment: Placed in the PEG tube. And filled the balloon with 6 mL's of water. Patient tolerated well. KUB was injected with contrast and appears to be in good position. Treatment Plan: Discharged back to custodial. Disposition: Discharge Impression: PEG tube came out PEG tube replaced by ER physician History of prior large CVA History of diabetes This note was generated with Finding [employer] 3 dictation software. It may contain incorrect words, spelling, and punctuation that were not noted in review of the chart prior to signing ED Disposition - Plan for ED Patient: Chief Complaint: General Illness Referrals: Marcin Joseph MD [Primary Care Provider] -
--- NOTE | 2017-11-26 17:13 | ED.DCSUM_ITS ---
- ER Visit Summary Date of Service: 11/26/17 Chief Complaint: Feeding tube came out History of Present Illness: The patient is a 67 M history of prior stroke, encephalopathy and a aphasia. Also diabetes, hypertension and high cholesterol. Patient has had a left upper quadrant PEG or feeding tube in since at least last January if not longer. He is currently a group home resident at [place]. It somehow got pulled out today and he was sent in to have it replaced. Patient himself is unable to give any history due to his severe speech impediment from his prior stroke. Physical Examination: Well-appearing 67-year-old male. Vital signs are stable. He is afebrile. He does not look septic or toxic. He is in no acute distress. H EENT exam unremarkable. Neck nontender. Lungs clear to auscultation bilaterally. Heart regular rate and rhythm no murmur. Abdomen is soft. Nondistended normal bowel sounds no peritoneal signs. Extremities are nontender without edema. Neurologically he has had a large stroke in the past. He is a phasic. He does follow commands. He is trying to speak but I am unable to understand it. Test Results: KUB with contrast was done after the new PEG tube was placed and she was up to be in the stomach in good position. Emergency Department Course and Treatment: Placed in the PEG tube. And filled the balloon with 6 mL's of water. Patient tolerated well. KUB was injected with contrast and appears to be in good position. Treatment Plan: Discharged back to group home. Disposition: Discharge Impression: PEG tube came out PEG tube replaced by ER physician History of prior large CVA History of diabetes This note was generated with myThings dictation software. It may contain incorrect words, spelling, and punctuation that were not noted in review of the chart prior to signing ED Disposition - Plan for ED Patient: Chief Complaint: General Illness Referrals: aMrcin Joseph MD [Primary Care Provider] -
--- NOTE | 2017-11-26 17:50 | RAD_ITS ---
STUDY: X-RAY - ABDOMEN/PELVIS REASON FOR EXAM: Male, 67 years old. PEG tube placement TECHNIQUE: KUB following contrast injection COMPARISON: None. FINDINGS: Single film presented following contrast injection into PEG tube demonstrates the placement of the tube in the vicinity of the distal gastric body filling the stomach without evidence for extravasation. RAD/Abdomen Single View IMPRESSION: PEG tube placement within the distal gastric body Electronically Signed: Percy Guzman MD at 18:35 EDT , Service support ,
--- NOTE | 2017-11-26 18:05 | ED.DEP ---
ED Disposition - Plan for ED Patient: Disposition: Home or Assisted Living Chief Complaint: General Illness Referrals: Marcin Joseph MD [Primary Care Provider] - As Needed Additional Instructions: May use new feeding tube. It was placed easily and checked with x-ray for placement appears to be in the stomach without any difficulty. Follow-up with physician as needed.
[2017-11-26 18:12] VITALS: BP 126/74; PULSE 61; RESP 15; O2SAT 98
== END 2017-11-26 19:33 | disposition home or self-care (01) ==
PROVIDERS: Emergency Provider Emergency Medicine; Family Provider Family Medicine; PCP Family Medicine
DX: K94.29 Other complications of gastrostomy (principal); E11.9 Type 2 diabetes mellitus without complications; I10 Essential (primary) hypertension; E78.00 Pure hypercholesterolemia, unspecified; I69.320 Aphasia following cerebral infarction; Z79.02 Long term (current) use of antithrombotics/antiplatelets; Z79.82 Long term (current) use of aspirin; Z79.4 Long term (current) use of insulin; Z79.899 Other long term (current) drug therapy
CPT/HCPCS: 74018; 99284

== ENCOUNTER 2018-05-08 20:18 | Emergency (ER) | payer MEDICARE, OTHER, SELFPAY ==
[2018-05-08 20:20] VITALS: BP 131/77; PULSE 70; RESP 16; TEMP 36.8; O2SAT 90; BMI 34.8
--- NOTE | 2018-05-08 20:43 | ED.VISSUMM ---
- ER Visit Summary Date of Service: 05/08/18 Chief Complaint: Pulled feeding tube out History of Present Illness: The patient is a 67 M who has an expressive and receptive aphasia presents from nursing facility because he pulled his feeding tube out. Patient unable to contribute with regards to history. Physical Examination: Vital signs are marked for slight elevation blood pressure 131/77. Patient had a 20 [place] J[address] tube in place. Will replace. There is slight blood noted from fistula site. Bowel sounds are present. There is no guarding or rebound tenderness. Of note pulse ox reads 90% on room air. Lungs reveal no wheeze, rales or rhonchi. Heart is regular. Test Results: None were obtained Emergency Department Course and Treatment: The nursing histotechnologist supervisor is obtaining a 20 [place] JAYDA tube for me to place. Treatment Plan: A 20 [place] JAYDA tube was placed with slight difficulty. Patient experienced discomfort because the fistula was significantly narrowed. Disposition: Return to half-way Impression: Placement/replacement of 20 [place] JAYDA tube, PEG tube This note was generated with [employer] dictation software. It may contain incorrect words, spelling, and punctuation that were not noted in review of the chart prior to signing ED Disposition - Plan for ED Patient: Disposition: Home or Assisted Living Chief Complaint: Wound Check Instructions: ED G Tube Replacement Referrals: Marcin Joseph MD [Primary Care Provider] - As Needed
--- NOTE | 2018-05-08 20:46 | ED.DCSUM_ITS ---
- ER Visit Summary Date of Service: 05/08/18 Chief Complaint: Pulled feeding tube out History of Present Illness: The patient is a 67 M who has an expressive and receptive aphasia presents from nursing facility because he pulled his feeding tube out. Patient unable to contribute with regards to history. Physical Examination: Vital signs are marked for slight elevation blood pressure 131/77. Patient had a 20 Citizen [place] JAYDA tube in place. Will replace. There is slight blood noted from fistula site. Bowel sounds are present. There is no guarding or rebound tenderness. Of note pulse ox reads 90% on room air. Lungs reveal no wheeze, rales or rhonchi. Heart is regular. Test Results: None were obtained Emergency Department Course and Treatment: The nursing rubbish collection supervisor is obtaining a 20 [place] JAYDA tube for me to place. Treatment Plan: A 20 [place] JAYDA tube was placed with slight difficulty. Patient experienced discomfort because the fistula was significantly narrowed. Disposition: Return to senior living Impression: Placement/replacement of 20 [place] JAYDA tube, PEG tube This note was generated with [employer] dictation software. It may contain incorrect words, spelling, and punctuation that were not noted in review of the chart prior to signing ED Disposition - Plan for ED Patient: Disposition: Home or Assisted Living Chief Complaint: Wound Check Instructions: ED G Tube Replacement Referrals: Marcin Joseph MD [Primary Care Provider] - As Needed
== END 2018-05-08 21:39 | disposition home or self-care (01) ==
PROVIDERS: Emergency Provider Emergency Medicine; Family Provider Family Medicine; PCP Family Medicine
DX: Z43.1 Encounter for attention to gastrostomy (principal); I10 Essential (primary) hypertension; E11.9 Type 2 diabetes mellitus without complications; E66.9 Obesity, unspecified; Z68.34 Body mass index [BMI] 34.0-34.9, adult; Z79.82 Long term (current) use of aspirin; Z79.4 Long term (current) use of insulin; Z79.01 Long term (current) use of anticoagulants; Z79.899 Other long term (current) drug therapy
CPT/HCPCS: 43760; 43762; 99284

== ENCOUNTER 2018-08-06 19:39 | Emergency (ER) | payer MEDICARE, OTHER, SELFPAY ==
[2018-08-06 19:41] VITALS: BP 155/81; PULSE 72; RESP 14; TEMP 36.6; O2SAT 94; BMI 35.6
--- NOTE | 2018-08-06 20:50 | ED.VISSUMM ---
- ER Visit Summary Date of Service: 08/06/18 Chief Complaint: PEG tube displaced History of Present Illness: The patient is a 68 M with history of stroke who presents from a detention facility for displaced PEG tube. Patient is unable to provide any history but can indicate that he is not in any pain. Patient's PEG tube was found dislodged and fpc does not know how long it was out. Physical Examination: Awake and alert, afebrile, hemodynamically stable, abdomen is nontender, shows PEG site in the right upper abdomen with small amount of blood and no surrounding erythema or induration. No purulent drainage. Test Results: Clinical Impression(s) from Imaging Studies KUB X-Ray 08/06/18 21:04 IMPRESSION: The tip of a PEG tube is well-positioned within the gastric lumen Electronically Signed: Dimas Arriaga MD at 21:50 EDT Tel , Service support , Emergency Department Course and Treatment: A 20 [place] PEG tube was placed into the stoma using sterile technique. With gentle but firm pressure, the tube advanced and there was return of gastric contents. The balloon was filled with 6 mm of sterile water per the thermospray operator's instructions. KUB was performed and Gastrografin showed good placement without any leakage. Patient discharged back to the [facility]. Treatment Plan: [] Disposition: [] Impression: Dislodged PEG tube, replacement of PEG tube This note was generated with [employer] dictation software. It may contain incorrect words, spelling, and punctuation that were not noted in review of the chart prior to signing ED Disposition - Plan for ED Patient: Disposition: [facility] Facility Instructions: ED G Tube Replacement Referrals: Marcin Joseph MD [Primary Care Provider] - As Needed Additional Instructions: PEG tube was replaced with a 20F PEG with a 6cc balloon. Confirmed with an Xray and gastrograffin study.
--- NOTE | 2018-08-06 21:04 | RAD_ITS ---
STUDY: X-RAY - ABDOMEN/PELVIS REASON FOR EXAM: Male, 68 years old. . PEG tube placement TECHNIQUE: 1 view COMPARISON: November 26, 2017 FINDINGS: Contrast injected through the PEG tube opacifies the stomach with no demonstration of any spillage into the peritoneal cavity. No free intraperitoneal air. Mild degenerative changes involving the lower thoracic and lumbosacral spine. RAD/Abdomen Single View IMPRESSION: The tip of a PEG tube is well-positioned within the gastric lumen Electronically Signed: Dimas Arriaga MD at 21:50 EDT Tel , Service support ,
--- NOTE | 2018-08-06 22:15 | ED.RN ---
20 [place] G-TUBE PLACED PER DR. MAYER. VERIFIED BY X-RAY. PT TOLERATED WELL. THIS RN CALLED REPORT TO ZAIRA BEATTY AT [facility]. PT TO BE D/C BACK TO [facility].
[2018-08-06 22:17] VITALS: BP 161/77; PULSE 65; RESP 22; O2SAT 94
== END 2018-08-06 22:30 | disposition skilled nursing facility (03) ==
PROVIDERS: Emergency Provider Emergency Medicine; Family Provider Family Medicine; PCP Family Medicine
DX: K94.29 Other complications of gastrostomy (principal); E66.9 Obesity, unspecified; Z86.73 Personal history of transient ischemic attack (TIA), and cerebral infarction without residual deficits
CPT/HCPCS: 74018; 99284

== ENCOUNTER 2019-01-14 22:19 | Emergency (ER) | payer MEDICARE, OTHER, MEDICAID, SELFPAY ==
[2019-01-14 22:21] VITALS: BP 157/89; PULSE 66; RESP 18; TEMP 36.6; O2SAT 93; BMI 36.8
--- NOTE | 2019-01-14 22:53 | ED.VIS.GEN ---
History of Present Illness Chief Complaint: Other, Pain/Inj Narrative: Patient is a 68-year-old male who presents due to PEG dislodgment. This has been replaced on a few prior occasions per review of records. They were unable to replace it at the nursing facility so he was sent here. Past Medical History - Allergies and Home Meds Allergies/Adverse Reactions: Allergies No Known Allergies Allergy (Verified 01/14/19 22:20) Primary Care Physician: Marcin Joseph MD [Primary Care Provider] - Past Medical History: - - Diabetes, high cholesterol, seizure disorder Surgical History: - - Patient has a midline incision and after speaking to the brother he has had an abdominal aortic aneurysm repair up at the [facility] in the remote past Smoking Status: Never smoker - Family History Maternal Family History: Reports: No pertinent history Paternal Family History: Reports: No pertinent history Review of Systems ROS: Unable to Obtain Physical Exam Vital Signs/Narrative: Vital Signs Temp Pulse Resp BP Pulse Ox 01/14/19 22:21 97.8 F 66 18 157/89 H 93 Inital Vital Signs reviewed: Yes General: Well nourished Head: Normocephalic Eyes: EOMI ENT: Moist mucous membranes Neck: Supple Cardiovascular: Regular rate Respiratory: No distress Abdomen: Soft, Nontender, Nondistended, - - Mild bleeding from the site of the gastrostomy tube Skin: Normal color Neurological: Alert Psychological: Normal affect Diagnostic/Tx/Re-eval - Medical Decision Making I initially attempted to place the tube directly but this was unsuccessful. I then used a cotton tip applicator to find the tract. On second attempt the gastrostomy tube was successfully placed with aspiration of stomach contents. KUB with Gastrografin was obtained which shows the gastrostomy tip within the stomach without extravasation of contrast. Patient will be discharged. ED Disposition - Plan for ED Patient: Disposition: Home or Assisted Living Diagnosis: PEG (percutaneous endoscopic gastrostomy) adjustment/replacement/removal Instructions: Feeding Tube Replacement Referrals: Marcin Joseph MD [Primary Care Provider] -
--- NOTE | 2019-01-14 22:55 | RAD_ITS ---
STUDY: X-RAY - ABDOMEN/PELVIS REASON FOR EXAM: Male, 68 years old. PEG placement. TECHNIQUE: AP portable supine radiograph after administering contrast via the PEG tube. COMPARISON: 08/06/2018 abdominal radiograph FINDINGS: Administered contrast extends into the stomach and duodenum. The gastrostomy tube tip is in the mid stomach. No extraluminal contrast or extraluminal air is evident. No suspicious mass effect or acute osseous abnormality. RAD/Abdomen Single View IMPRESSION: The gastrostomy tube tip is in the mid stomach. Electronically Signed: Vic Adan, at 23:10 EDT Tel , Service support ,
--- NOTE | 2019-01-14 22:55 | ED.RN ---
DR. MARTINEZ REINSERTED PATIENT'S PEG TUBE. THIS NURSE APPLIED A SPLIT GAUZE DRESSING AND TAPE.
[2019-01-15 00:03] VITALS: BP 131/69; PULSE 75; RESP 16; O2SAT 96
--- NOTE | 2019-01-15 00:23 | ED.RN ---
[facility] CALLED TO SAY THEY WILL BE 1.5 HR UNTIL THEY CAN COME TRANSPORT THE PT.
--- NOTE | 2019-01-15 01:58 | ED.RN ---
YANNICK CALLED FOR REPORT ON THIS PT.
== END 2019-01-15 01:58 | disposition home or self-care (01) ==
PROVIDERS: Emergency Provider Emergency Medicine; Family Provider Family Medicine; PCP Family Medicine
DX: K94.29 Other complications of gastrostomy (principal); K94.21 Gastrostomy hemorrhage; G40.909 Epilepsy, unspecified, not intractable, without status epilepticus; E11.9 Type 2 diabetes mellitus without complications; E78.00 Pure hypercholesterolemia, unspecified; Z79.4 Long term (current) use of insulin; Z79.02 Long term (current) use of antithrombotics/antiplatelets; Z79.82 Long term (current) use of aspirin; Z79.899 Other long term (current) drug therapy
CPT/HCPCS: 74018; 99284

== ENCOUNTER 2019-07-01 14:05 | Emergency (ER) | payer MEDICARE, OTHER, MEDICAID, SELFPAY ==
[2019-07-01 14:06] VITALS: BP 169/85; PULSE 76; RESP 18; TEMP 36.6; O2SAT 96; BMI 37.5
--- NOTE | 2019-07-01 14:54 | RAD_ITS ---
STUDY: X-RAY - ABDOMEN/PELVIS REASON FOR EXAM: Male, 69 years old. PEG TUBE PLACEMENT TECHNIQUE: Single AP view of the abdomen / pelvis. COMPARISON: Comparison is made with prior study dated January 14, 2019. FINDINGS: Contrast was injected into the gastrostomy tube. The tip of the tube is within the stomach. RAD/Abdomen Single View (Portable) IMPRESSION: The tip of the feeding tube is within the stomach. Electronically Signed: Ottoniel Walls, at 15:13 EST , Service support ,
--- NOTE | 2019-07-01 15:16 | ED.VIS.GEN ---
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 Reportedly had a PEG tube placed in 2017. This became dislodged today. He was sent in for PEG tube replacement. Past Medical History - Allergies and Home Meds Allergies/Adverse Reactions: Allergies No Known Allergies Allergy (Verified 07/01/19 14:41) Primary Care Physician: Marcni Joseph MD [Primary Care Provider] - Surgical History: - - Patient has a midline incision and after speaking to the brother he has had an abdominal aortic aneurysm repair up at the [facility] in the remote past Smoking Status: Never smoker - Family History Maternal Family History: Reports: No pertinent history Paternal Family History: Reports: No pertinent history Review of Systems ROS: Unable to Obtain - Due to a fascia Physical Exam Vital Signs/Narrative: Vital Signs Temp Pulse Resp BP Pulse Ox 07/01/19 14:06 97.8 F 76 18 169/85 H 96 Inital Vital Signs reviewed: Yes General: Well nourished, Well developed, No Acute Distress Head: Normocephalic, Atraumatic Eyes: Perrl, EOMI ENT: Moist mucous membranes, No rhinorrhea Neck: Supple, Nontender Cardiovascular: Regular rate, Regular rhythm, No murmurs Respiratory: No distress, CTA bilaterally, Chest nontender Abdomen: Soft, Nondistended, Normal bowel sounds, - - There is a stoma from a PEG tube in the usual left upper quadrant placement. There is a small clot at the meatus. Back: Nontender, Normal Inspection Extremities: Nontender, No edema Skin: Normal color, No rash Neurological: Alert, Cranial nerves II-XII grossly intact, Normal Strength, Normal Sensation Psychological: Normal affect, Normal Mood Diagnostic/Tx/Re-eval - Medical Decision Making A 20 [place] PEG tube was placed easily into the well-formed tract. 6 cc balloon was inflated with air. Patient tolerated the procedure quite well. Dressing applied. Gastrografin was instilled and postprocedural x-ray confirmed placement. He will be discharged back to [facility]. ED Disposition - Plan for ED Patient: Disposition: Home or Assisted Living Diagnosis: PEG (percutaneous endoscopic gastrostomy) adjustment/replacement/removal Instructions: PEG Feeding Tube Care: [place] Referrals: Marcin Joseph MD [Primary Care Provider] - As Needed
== END 2019-07-01 15:49 | disposition home or self-care (01) ==
PROVIDERS: Emergency Provider Emergency Medicine; PCP Family Medicine
DX: Z43.1 Encounter for attention to gastrostomy (principal); Z79.02 Long term (current) use of antithrombotics/antiplatelets; Z79.82 Long term (current) use of aspirin; Z79.4 Long term (current) use of insulin; Z79.899 Other long term (current) drug therapy
CPT/HCPCS: 74018; 99284

== ENCOUNTER 2020-03-15 11:10 | Inpatient (IN) | payer MEDICARE, OTHER, MEDICAID, SELFPAY ==
[2020-03-15] VITALS (13 sets, daily range): BP systolic 93–136; BP diastolic 54–79; PULSE 81–105; RESP 18–23; TEMP 37.3–38.4; O2SAT 90–97; BMI 39.6; BMI 38.5
--- NOTE | 2020-03-15 11:30 | RAD_ITS ---
STUDY: X-RAY CHEST REASON FOR EXAM: Male, 69 years old. SHORT OF BREATH, FEVER TECHNIQUE: Single AP portable view of the chest. COMPARISON: Comparison is made with prior study dated 10/07/2017. FINDINGS: EKG lead tubes are seen. Mild increased markings in the posterior medial segment of the left lower lobe with areas of confluence suggestive of early infiltrate. There is no demonstrated pleural abnormality. Normal size heart. Normal mediastinum and brittany. Normal visualized pulmonary arteries. There is atherosclerotic tortuosity of the aortic arch and descending thoracic aorta. There are diffuse degenerative changes of the visualized thoracic spine. There is degenerative osteoarthritis of the bilateral shoulders. There is no demonstrated abnormality of the visualized soft tissue structures of the upper abdomen. RAD/Chest 1 View (Portable) IMPRESSION: Findings suggestive of early infiltrate in the posterior medial segment of the left lower lobe. Electronically Signed: Ottoniel Walls, at 12:41 EST , Service support ,
[2020-03-15] MEDS: 0.9% Normal Saline 1,000 ML 150 ML IV (11:54)
[2020-03-15 12:02] LABS: Absolute Lymphocyte Count 1.17 X10^3/uL (0.83-4.51); Absolute Neutrophil Count 11.1 X10^3/uL (2.0-7.7); Basophil# 0.09 X10^3/uL; Basophil% 0.7 % (0-1); Eosinophils% 0.7 % (0-5); Hematocrit 45.1 % (40-54); Hemoglobin 14.3 g/dL (13.0-16.5); Lymphocyte # 1.17 X10^3/ul (4.0); Lymphocyte % 8.7 % (19-41); Mean Corp Hgb Conc 31.7 g/dL (32-36); Mean Corpuscular Hgb 30.2 pg (27.0-32.0); Mean Corpuscular Volume 95.1 fL (80-94); Mean Platelet Vol. 9.3 fl (6.2-12.0); Monocyte# 1.03 X10^3/uL; Monocyte% 7.6 % (0-10); NRBC Flagged by Analyzer 0 % (0-5); Neutrophil # 11.06 X10^3/uL (2.7-7.7); Platelet Count 245 K/mm3 (150-450); RBC Distribution Width CV 13.6 % (11.6-14.6); RBC Distribution Width SD 47.6 fl (35.1-43.9); Red Blood Count 4.74 M/mm3 (4.6-6.2); White Blood Count 13.5 K/mm3 (4.4-11.0)
[2020-03-15 12:09] LABS: Mucous, Urine 0 SEEN /hpf (<or=2+)
[2020-03-15 12:18] LABS: Color, Urine Yellow (Yellow); Glucose, Dipstick Normal (Normal); Ketone-Dipstick Negative (Negative); Leukocyte Esterase-Dipstick 500 /ul (Negative); Nitrite-Dipstick Positive (Negative); Occult Blood-Urine 25 /ul (Negative); Protein-Dipstick 100 mg/dl (Negative); Specific Gravity, Urine 1.005 (1.002-1.030); Urine Bilirubin Dipstick Negative (Negative); Urine Clarity Sl. Cloudy (Clear); Urine Urobilinogen Normal (Normal)
[2020-03-15 12:19] LABS: ALB/GLOB Ratio 0.9 RATIO (0.9-2.4); AST(SGOT) 25 U/L (15-37); Alanine Aminotransfer ALT/SGPT 24 U/L (16-61); Albumin, Serum 3.2 g/dL (3.2-5.0); Alkaline Phosphatase 114 U/L (45-117); Anion Gap 3 (5-15); BUN 16 mg/dL (7-18); BUN/Creat Ratio 12.9 RATIO (10-20); Calcium,Total 8.7 mg/dL (8.5-10.1); Chloride 108 mmol/L (98-107); Creatinine, Serum 1.24 mg/dL (0.70-1.30); EST Glomerular Filtration Rate 62 mL/min (>60); Est Glom Filt Rate - Afr Amer 75 mL/min (>60); Estimated Creatinine Clearance 59.69 ml/min; Globulin 3.7 g/dL (2.2-4.2); Glucose 150 mg/dL (74-106); Potassium 4.2 mmol/L (3.5-5.1); Protein, Total 6.9 g/dL (6.4-8.2); Sodium Level 141 mmol/L (136-145)
[2020-03-15 12:26] LABS: Bacteria 1+ /hpf (None Seen); Red Blood Cells-Urine 0-5 SEEN /hpf (0-5); Squamous Epithelial Cells - UA 0-5 SEEN /hpf (0-5); White Blood Cells 25-50 SEEN /hpf (0-5)
[2020-03-15 12:50] LABS: Lactic Acid 1.7 mmol/L (0.4-1.9)
--- NOTE | 2020-03-15 13:15 | ED.DCSUM_ITS ---
- ER Visit Summary Date of Service: 03/15/20 Chief Complaint: [Fever] History of Present Illness: The patient is a 69 M [ presents to the emergency department with complaint of a fever today. Patient also had low blood pressure with systolics in the 70s and low oxygen levels while at the intermediate today . Patient had a Covid test this morning that was negative. Patient is a poor historian due to the fact that he has had a prior stroke and has a hard time with speech. Patient has history of stroke, UTI, diabetes, hypertension, high cholesterol. Patient has a PEG tube.] Physical Examination: [HEENT-PERRLA, EOMI. Cranial nerves II through XII grossly intact. TMs clear. Mucous membranes moist. No adenopathy. Cardiovascular-regular rate and rhythm without murmur or ectopy Lungs-good aeration bilaterally. Patient has some coarse breath sounds bilaterally. Mild tachypnea. No accessory muscle use or retractions. Abdomen-normoactive bowel sounds, soft, nontender, no rebound or rigidity, no peritoneal signs. Extremities-intact ?4, normal range of motion, normal pulses, atraumatic] Test Results: [CBC with differential showed a white of 13.5, hemoglobin 14, hematocrit 45, placed 245. Chemistries unremarkable. Urinalysis was positive for leukocyte esterase 525-50 WBCs and +1 bacteria. Chest x-ray obtained showed left lower lobe infiltrate.] Emergency Department Course and Treatment: [IV line established on arrival. Patient was started on Rocephin and Zithromax IV. Patient placed on nasal cannula O2.] Treatment Plan: [Admit] Disposition: [Admit] Impression: [Pneumonia with hypoxemia UTI Sepsis] This note was generated with [employer] dictation software. It may contain incorrect words, spelling, and punctuation that were not noted in review of the chart prior to signing ED Disposition - Plan for ED Patient: Referrals: Marcin Joseph MD [Primary Care Provider] -
[2020-03-15] MEDS: Ceftriaxone 1 GM/50 ML BAG IV (13:20)
--- NOTE | 2020-03-15 13:36 | HP.PCM_ITS ---
Problem List (1) Acute respiratory failure with hypoxia Status: Acute (2) Altered mental status, unspecified Status: Acute Qualifiers: (3) UTI (urinary tract infection) Status: Acute (4) Chronic left arterial ischemic stroke, MCA (middle cerebral artery) Status: Chronic (5) Global aphasia Status: Chronic (6) Occlusion of left internal carotid artery Status: Chronic (7) Diabetes mellitus type 2 in obese Status: Chronic (8) Hypertension Status: Chronic (9) Hyperlipidemia Status: Chronic (10) Dysphagia Status: Chronic (11) Status post insertion of percutaneous endoscopic gastrostomy (PEG) tube Status: Chronic Comment: 01/[address] Duncan (12) Sleep-disordered breathing Status: Chronic (13) LVH (left ventricular hypertrophy) Status: Chronic (14) Diastolic dysfunction Status: Chronic (15) Influenza A Status: Inactive (16) Influenza B Status: Inactive History of Present Illness Date of Admission: 03/15/20 Mr Blakely is a 69 year old M with multiple medical issues including Stroke with global aphasia and R hemiparesis who presented to the ED on 03/15/2020 from [facility] with hypotension (78/48 at facility), hypoxia, tachycardia and temp via forehead scan of 100.2. A rapid COVID was done there this am and was negative. He is unable to give any information 2/2 global aphasia. VS in the ED were better. His Tmax was 99.6, HR was 88-97, BP was 136/73 and his sats were 97% however he was on 2 L of O2 and at baseline he does not require any O2. His lab work reveals a white count of 13.5 with a L shift, Mild DARRELL and a normal lactate at 1.7. EKG shows no ST-T wave changes and his CXR shows a LLL infiltrate. His UA is consistent with a UTI as well. He was started on ceftriaxone and azithromycin in the ED and give IVF at 150 cc/hr. Blood and urine cx were obtained prior to the initiation of ABX. Past Medical History Past Medical History (Chronic Problems): Chronic Problems Chronic left arterial ischemic stroke, MCA (middle cerebral artery) (Chronic) Global aphasia (Chronic) Occlusion of left internal carotid artery (Chronic) Diabetes mellitus type 2 in obese (Chronic) Hypertension (Chronic) Hyperlipidemia (Chronic) Dysphagia (Chronic) 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 Duncan Sleep-disordered breathing (Chronic) LVH (left ventricular hypertrophy) (Chronic) Diastolic dysfunction (Chronic) Allergies No Known Allergies Allergy (Verified 03/15/20 11:21) Home Medications: Ambulatory Orders Medication Instructions Recorded Acetaminophen 1,000 mg GT TID 05/11/17 Bisacodyl [Laxative Suppository] 10 mg RC DAILY PRN PRN 05/11/17 Gabapentin [Neurontin Solution] 300 mg GT TIDCM 05/11/17 Gemfibrozil [Lopid] 600 mg GT BIDAC 05/11/17 Magnesium Hydroxide [Milk of 30 ml GT DAILY PRN PRN 05/11/17 Magnesia] Mineral Oil 118 ml RC DAILY PRN PRN 05/11/17 Aspirin [Aspirin, Baby] 81 mg GT DAILY@0800 08/16/17 Cilostazol [Pletal] 100 mg GT BIDAC 08/16/17 Citalopram [Celexa] 10 mg GT QODAY 08/16/17 Clopidogrel Bisulfate [Plavix] 75 mg GT DAILY 08/16/17 Atorvastatin Calcium [Lipitor] 80 mg GT QHS 10/07/17 levETIRAcetam oral solution 500 mg GT DAILY 05/08/18 [Keppra Solution] Ezetimibe 1 tab GT DAILY 01/14/19 Triamcinolone 0.1% Cream [Kenalog] 1 applicatio TOPICAL Q12H PRN PRN 01/14/19 Tari-Lanta Liquid 03/15/20 Insulin Glargine [Lantus (BKC)] 20 units SC QHS 03/15/20 Insulin Lispro [Humalog] 12 unit SC TIDCM 03/15/20 Insulin Lispro [Humalog] See Protocol SC TIDCM 03/15/20 Levetiracetam [Keppra] 750 mg GT BID 03/15/20 Oxycodone [Oxyir] 5 mg PO Q6H PRN PRN 03/15/20 Surgical History: - - Patient has a midline incision and after speaking to the brother he has had an abdominal aortic aneurysm repair up at the [facility] in the remote past, PEG Psychiatric History: No pertinent psych hx Lives: [facility] Smoking Status: Never smoker Alcohol: None Drugs: None - *Family History Maternal History Items: No pertinent history Paternal History Items: No pertinent history Review of Systems Unable to obtain accurate/complete ROS d/t: Unable to obtain 2/2 global aphasia VTE Information - Inpt Only VTE Present on Admission: No VTE Mechan Device Prophylaxis: SCD's VTE Pharm Prophylaxis ordered?: Yes - Physical Exam Vitals/I&O's: Vital Signs Temp Pulse Resp BP Pulse Ox 99.1 F 88 22 H 136/73 H 97 03/15/20 12:57 03/15/20 12:57 03/15/20 12:57 03/15/20 12:57 03/15/20 12:57 Oxygen Flow Rate (L/min) 2 Oxygen Delivery Method Nasal Cannula Weight: 125.2 kg Body Mass Index (BMI) 39.6 Finger Stick Blood Glucose 149 General: Alert, Cooperative, Well developed, Well nourished, - - Obese WM lying in bed but awakens to noise, has global aphasia so unable to follow commands, appears older than stated age HEENT: Atraumatic, PERRLA, EOMI, Normocephalic, EAC Clear Oral: Moist Mucosa, No Gingival or Mucosal Lesions/ Ulcerations, - - poor dentition Neck: Supple, No JVD, Negative Carotid Bruits, Negative Hepatojugular Reflux, Trachea Midline, Thyroid Normal Size and Texture, - - short and thick Lungs: No wheeze, No rales, Rhonchi - L base Cardiovascular: Regular rate, Regular Rhythm, Normal S1, Normal S2, No murmurs, No Ectopic Activity, No rub noted, No Gallop Abdomen: Bowel Sounds Present, Soft, Non Tender, Non-Distended, No Hepato- splenomegaly, Obese, - - well healed midline incision and PEG in LUQ--> clean without drainage Extremities: No clubbing, No cyanosis, No edema, Capillary Refill Less than 3 Seconds, Cool, Peripheral Pulses Normal, - Skin: No rashes, No breakdown, - - pale Musculoskeletal: No Tenderness to Palpation of Joints or Extremities, No Muscle Wasting, Arthritic Changes Lymphatic: No Cervical, Supraclavicular, or Inguinal Adenopathy Neurological: - - hyperreflexia 3/4 on R and WNL L, R hemiparesis-dense, normal movement on L difficult exam with aphasia Psych/Mental Status: - - sleepy but awakens and cooperates as much as possible with exam Laboratory Results 03/15/20 11:40: WBC 13.5 H, RBC 4.74, Hgb 14.3, Hct 45.1, MCV 95.1 H, MCH 30.2, MCHC 31.7 L, RDW Std Deviation 47.6 H, RDW Coeff of Corinne 13.6, Plt Count 245, MPV 9.3, Immature Gran % (Auto) 0.300, Neut % (Auto) 82.0 H, Lymph % (Auto) 8.7 L, [place] % (Auto) 7.6, Eos % (Auto) 0.7, Baso % (Auto) 0.7, Absolute Neuts (auto) 11.1 H, Absolute Lymphs (auto) 1.17, Nucleated RBC % 0 03/15/20 11:40: Sodium 141, Potassium 4.2, Chloride 108 H, Carbon Dioxide 30.0, Anion Gap 3 L, BUN 16, Creatinine 1.24, Estim Creat Clear Calc 59.69, Est GFR (MDRD) Af Amer 75, Est GFR (MDRD) Non-Af 62, BUN/Creatinine Ratio 12.9, Glucose 150 H, Calcium 8.7, Total Bilirubin 0.60, AST 25, ALT 24, Alkaline Phosphatase 114, Total Protein 6.9, Albumin 3.2, Globulin 3.7, Albumin/Globulin Ratio 0.9 03/15/20 11:40: Lactic Acid 1.7 03/15/20 12:00: Urine Color Yellow, Urine Clarity Sl. Cloudy, Urine pH 7.0, Ur Specific [place] 1.005, Urine Protein 100 H, Urine Glucose (UA) Normal, Urine Ketones Negative, Urine Occult Blood 25 H, Urine Nitrite Positive H, Urine Bilirubin Negative, Urine Urobilinogen Normal, Ur Leukocyte Esterase 500 H, Urine RBC 0-5 SEEN, Urine WBC 25-50 SEEN, Ur Squamous Epith Cells 0-5 SEEN, Urine Bacteria 1+, Urine Mucus 0 SEEN Current Medications Sodium Chloride () 1,000 mls @ 150 mls/hr IV .Q6H40M [facility] Last Admin: 03/15/20 11:54 Dose: 150 mls/hr Documented by: Azithromycin 500 mg/ Dextrose 255 mls @ 250 mls/hr IV X1 ONE Stop: 03/15/20 13:43 Assessment/Plan All Active Problems Altered mental status, unspecified (Acute) UTI (urinary tract infection) (Acute) Acute respiratory failure with hypoxia (Acute) Cerebral edema (Resolved) Hypernatremia (Resolved) Sepsis 2/2 LLL PNA and Suspected UTI -Lactate WNL -pt with white count and tachycardia -Blood and Urine cx pending -will have SHIFT PRODUCTION ASSOCIATE evaluate to assure pt remains safe for diet that he is on -will use Vanc and Zosyn for now since he presents from an ECF -Check Viral PCR/MRSA PCR -Check Sputum cx if possible -DuoNeb Scheduled and prn albuterol -COVID neg Acute Hypoxic Respiratory Insufficiency -wean O2 as able -Nebs DARRELL -baseline sCr is 0.7-0.9 -today 1.24 -suspect dry -will continue free water flushes 100 q 6 -LR at 70 cc/hr continuous for now and reassess in am Dysphagia 2/2 Stroke -PO diet is Mech soft with NTL -will have SHIFT PRODUCTION ASSOCIATE reevaluate with new PNA to assure diet is still safe Seizures -continue Keppra/gabapentin H/O L MCA Stroke -has residual deficits of R hemiparesis, global aphasia and dysphagia related to this (01/2017) -continue ASA and Plavix -continue risk factor modification -pt has PEG HTN/HPL -continue Lipitor -pt is on no BP meds at this time -monitor DM-2 uncontrolled -last A1c here was 2016 and was 7.3 -check in am -continue Lantus 20 u at hs/Log 12 u TID and add SSI coverage if needed -ACHS BGT L ICA Occlusion -continue medical mgt Obesity -BMI is 39.6 -recommend wgt loss Depression -continue Celexa DVT prophylaxis -Lovenox -SCD Code Status -Full per records from [facility] Inpatient E&M: 23106 Init Hosp L3
--- NOTE | 2020-03-15 14:06 | ED.RN ---
spoke with Juan Francisco Sharma and Khanh kline for update on admission.
[2020-03-15] MEDS: 0.9% Normal Saline 1,000 ML 70 ML IV (15:40)
[2020-03-15] MEDS: Gemfibrozil 600 MG Tablet GT (16:13)
[2020-03-15] MEDS: Cilostazol 50 MG Tablet 100 MG GT (16:13)
[2020-03-15 16:25] LABS: Bedside Glucose 145 mg/dL (70-110)
[2020-03-15] MEDS: Gabapentin 300 MG Capsule GT (16:31)
--- NOTE | 2020-03-15 16:42 | PCM.NTREPORT ---
Nutrition Therapy Report - History Nutrition Services has been consulted to:: Manage enteral nutrition Current diet / nutrition support order:: Cardiac:1800 calorie; mechanical soft, nectar thick liquids. Isosource 1.5 250 ml bolus if consuming <50% of meals. - Anthropometric Measurements Height:: 5 ft 10 in Weight:: 121.7 kg Body Mass Index (BMI):: 38.5 - Relevant Labs Relevant Labs:: WBC 13.5 K/mm3 (4.4-11.0) H 03/15/20 11:40 MCV 95.1 fL (80-94) H 03/15/20 11:40 MCHC 31.7 g/dL (32-36) L 03/15/20 11:40 RDW Std Deviation 47.6 fl (35.1-43.9) H 03/15/20 11:40 Neut % (Auto) 82.0 % (47-70) H 03/15/20 11:40 Lymph % (Auto) 8.7 % (19-41) L 03/15/20 11:40 Absolute Neuts (auto) 11.1 X10^3/uL (2.0-7.7) H 03/15/20 11:40 Chloride 108 mmol/L (98-107) H 03/15/20 11:40 Anion Gap 3 (5-15) L 03/15/20 11:40 Glucose 150 mg/dL (74-106) H 03/15/20 11:40 - Assessment Food / Nutrition-Related History:: Pt from [facility]-- pt w/ global aphasia & poor historian d/t hx of stroke, unable to answer RDN questions at this time. Pt w/ hx of dysphagia, taking foods by mouth at [place] per MD on [facility] soft with [place] thick liquids- ACID STRENGTH INSPECTOR consulted to ensure pt able to cosume foods PO-- will make pt NPO until ACID STRENGTH INSPECTOR can assess. Per MD recieving Isosource 1.5 via PEG 250 ml if PO intake <50% w/ 100 ml H2O flush every 6 hrs. CBW 268.3#; wt hx per EMR 10/07/17 226.6#. - Nutrition Diagnosis Problem / Etiology / Signs & Symptoms (PES):: Swallowing difficulty related to history of stroke as evidenced by diagnosis of dysphagia recieving altered textures at NH and supplemental TF via PEG. Evidence of Malnutrition Exists:: No - Nutrition Intervention Nutrition Prescription:: 8517-7029 calories; 85-95 grams protein - Food / Nutrient Delivery Interventions Summary of nutrition intervention:: Will make pt NPO until ACID STRENGTH INSPECTOR able to assess pt to ensure pt safe to tolerate PO diet. Will provide Jevity 1.5 bolus feeds via PEG 270 ml 5 times per day w/ 105 ml H2O flush before and after each feed to provide 2025 calories, 86 grams protein, 2076 ml total fluid per day. TF to meet 100% of pt estimated nutrition needs. Rec AMANDA Cardiac:CHO controlled w/ texture modifications per ACID STRENGTH INSPECTOR. Nutrition support ordered as / adjusted to:: Jevity 1.5 bolus feeds via PEG 270 ml 5 times per day w/ 105 ml H2O flush before and after each feed to provide 2025 calories, 86 grams protein, 2076 ml total fluid per day. Nutrition education provided?: No - MNT Monitoring Further MNT monitoring and evaluation required?: Yes MNT Follow-up in:: 1-2 days - Please call RDN at ext [phone] as needed.
--- NOTE | 2020-03-15 16:47 | PCM.RX.CS ---
Consult Pharmacy has been consulted to manage selected antiobiotic: Vancomycin Type of Consult: New start Suspected Infection: Sepsis Prior Doses of Antibiotics Received/Current Regimen: 1 DOSE OF 1750MG AT 1628 03/15/20 Labs: Sodium 141 mmol/L (136-145) 03/15/20 11:40 Potassium 4.2 mmol/L (3.5-5.1) 03/15/20 11:40 Chloride 108 mmol/L (98-107) H 03/15/20 11:40 Carbon Dioxide 30.0 mmol/L (21.0-32.0) 03/15/20 11:40 Anion Gap 3 (5-15) L 03/15/20 11:40 BUN 16 mg/dL (7-18) 03/15/20 11:40 Creatinine 1.24 mg/dL (0.70-1.30) 03/15/20 11:40 Est GFR (MDRD) Af Amer 75 mL/min (>60) 03/15/20 11:40 Est GFR (MDRD) Non-Af 62 mL/min (>60) 03/15/20 11:40 BUN/Creatinine Ratio 12.9 RATIO (-) 03/15/20 11:40 Glucose 150 mg/dL (74-106) H 03/15/20 11:40 TROUGH LEVEL ORDERED PRIOR TO 4TH DOSE = 0400 03/17/20 Weight used for dosin kg Estimated Creatinine Clearance: 60 Goal Trough: 15-20 mcg/mL Pharmacy Plan for Drug DosinMG IVPB Q12H, TROUGH LEVEL ORDERED PRIOR TO 4TH TOTAL DOSE = 0400 03/17/20 Pharmacy Service will continue to monitor and adjust dosing as required. Follow-Up Labs: Trough Vancomycin Labs to be done on [date and time ordered]: 03/17/20 AT 0400
[2020-03-15] MEDS: Ipratropium/Albuterol Sulfate 3 ML AMPUL.NEB INHALATION (19:13)
[2020-03-15] MEDS: Acetaminophen 325 MG Tablet 650 MG PO (21:09)
[2020-03-15] MEDS: levETIRAcetam Oral Solution 500 MG/5 ML 750 MG GT (21:10)
[2020-03-15] MEDS: Atorvastatin Calcium 80 MG Tablet GT (21:11)
[2020-03-15] MEDS: Jevity 1.5. 1,000 ML Bottle 270 ML GT (21:19)
[2020-03-15 21:35] LABS: Bedside Glucose 193 mg/dL (70-110)
[2020-03-15] MEDS: Insulin Lispro 100 UNIT/ML INSULN.PEN SC (21:38)
[2020-03-15 22:59] LABS: M R Staph aureus DNA By PCR Negative (Negative); Probe Check PASS; Specimen Processing Control PASS
[2020-03-16] VITALS (19 sets, daily range): BP systolic 97–130; BP diastolic 49–67; PULSE 75–98; RESP 17–24; TEMP 36.3–37.8; O2SAT 94–97
[2020-03-16] MEDS: Ketorolac 15 MG/ML Vial IV (00:11)
[2020-03-16] MEDS: Ipratropium/Albuterol Sulfate 3 ML AMPUL.NEB INHALATION ×4 (00:13→19:02)
[2020-03-16] MEDS: 0.9% Normal Saline 1,000 ML 125 ML IV (00:53)
[2020-03-16] MEDS: Jevity 1.5. 1,000 ML Bottle 270 ML GT ×5 (05:00→22:43)
[2020-03-16 05:45] LABS: Absolute Lymphocyte Count 1.99 X10^3/uL (0.83-4.51); Absolute Neutrophil Count 8.4 X10^3/uL (2.0-7.7); Basophil# 0.06 X10^3/uL; Basophil% 0.5 % (0-1); Eosinophil# 0.16 X10^3/uL; Eosinophils% 1.3 % (0-5); Hematocrit 40.8 % (40-54); Hemoglobin 12.7 g/dL (13.0-16.5); Lymphocyte # 1.99 X10^3/ul (4.0); Mean Corp Hgb Conc 31.1 g/dL (32-36); Mean Corpuscular Hgb 30.5 pg (27.0-32.0); Mean Corpuscular Volume 97.8 fL (80-94); Mean Platelet Vol. 9.3 fl (6.2-12.0); Monocyte# 1.79 X10^3/uL; Monocyte% 14.4 % (0-10); NRBC Flagged by Analyzer 0 % (0-5); Neutrophil % 67.5 % (47-70); POSITIVE DIFFERENTIAL YES; Platelet Count 197 K/mm3 (150-450); RBC Distribution Width CV 13.7 % (11.6-14.6); RBC Distribution Width SD 49.3 fl (35.1-43.9); Red Blood Count 4.17 M/mm3 (4.6-6.2); White Blood Count 12.4 K/mm3 (4.4-11.0)
[2020-03-16 05:46] LABS: Differential Indicated SCAN CRITERIA MET
[2020-03-16 06:02] LABS: Anion Gap 5 (5-15); BUN 16 mg/dL (7-18); BUN/Creat Ratio 15.2 RATIO (10-20); Calcium,Total 7.7 mg/dL (8.5-10.1); Chloride 107 mmol/L (98-107); Creatinine, Serum 1.05 mg/dL (0.70-1.30); EST Glomerular Filtration Rate 75 mL/min (>60); Est Glom Filt Rate - Afr Amer 90 mL/min (>60); Estimated Creatinine Clearance 70.49 ml/min; Glucose 179 mg/dL (74-106); Magnesium 2.3 mg/dL (1.6-2.6); Phosphorus 3.5 mg/dL (2.5-4.9); Potassium 3.6 mmol/L (3.5-5.1); Sodium Level 140 mmol/L (136-145)
[2020-03-16 06:05] LABS: Differential Comment SCANNED
[2020-03-16] MEDS: Gemfibrozil 600 MG Tablet GT ×2 (07:18→16:40)
[2020-03-16] MEDS: Cilostazol 50 MG Tablet 100 MG GT ×2 (07:26→16:40)
--- NOTE | 2020-03-16 07:43 | PN_ITS ---
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 An assessment of sepsis secondary to left lower lobe pneumonia and UTI made treatment initiated per protocol admitted to regular nursing floor for further management Objective: GENERAL: Non Communicative HEENT: Atraumatic; EYES; Anicteric, Normal Conjunctiva NECK; supple, normal thyroid, RESPIRATORY: Diminished to auscultation kunal rhonchi CARDIOVASCULAR: Regular S1 S2, GI: soft, normoactive bowel sounds, : No Renal angle tenderness; EXTREMITIES: No edema, no clubbing, MUSCULOSKELETAL: no muscle waisting NEURO: Awake; right-sided hemiparesis SKIN: No Rash PSYCH; Flat affect Vitals/I&O's: Vital Signs Temp Pulse Resp BP Pulse Ox 97.6 F L 88 18 115/67 96 03/16/20 04:32 03/16/20 07:09 03/16/20 07:09 03/16/20 04:32 03/16/20 07:09 Oxygen Flow Rate (L/min) 3 Oxygen Delivery Method Nasal Cannula Weight: 121.7 kg Body Mass Index (BMI) 38.5 Finger Stick Blood Glucose 149 Intake and Output for Last 24 Hours 03/14/20 03/15/20 03/16/20 23:59 23:59 23:59 Intake Total 2089 / 2465 2610.00 / 2610.00 Balance 2089 / 2464 2610.00 / 2610.00 Microbiology Past 72 Hours 03/15/20 12:00 Urine, Clean Catch Legionella Antigen - Final 03/15/20 12:00 Urine, Clean Catch Streptococcus pneumoniae Antigen (M - Final Laboratory Results 03/15/20 11:40: WBC 13.5 H, RBC 4.74, Hgb 14.3, Hct 45.1, MCV 95.1 H, MCH 30.2, MCHC 31.7 L, RDW Std Deviation 47.6 H, RDW Coeff of Corinne 13.6, Plt Count 245, MPV 9.3, Immature Gran % (Auto) 0.300, Neut % (Auto) 82.0 H, Lymph % (Auto) 8.7 L, [place] % (Auto) 7.6, Eos % (Auto) 0.7, Baso % (Auto) 0.7, Absolute Neuts (auto) 11.1 H, Absolute Lymphs (auto) 1.17, Nucleated RBC % 0 03/15/20 11:40: Sodium 141, Potassium 4.2, Chloride 108 H, Carbon Dioxide 30.0, Anion Gap 3 L, BUN 16, Creatinine 1.24, Estim Creat Clear Calc 59.69, Est GFR (MDRD) Af Amer 75, Est GFR (MDRD) Non-Af 62, BUN/Creatinine Ratio 12.9, Glucose 150 H, Calcium 8.7, Total Bilirubin 0.60, AST 25, ALT 24, Alkaline Phosphatase 114, Total Protein 6.9, Albumin 3.2, Globulin 3.7, Albumin/Globulin Ratio 0.9 03/15/20 11:40: Lactic Acid 1.7 03/15/20 12:00: Urine Color Yellow, Urine Clarity Sl. Cloudy, Urine pH 7.0, Ur Specific [place] 1.005, Urine Protein 100 H, Urine Glucose (UA) Normal, Urine Ketones Negative, Urine Occult Blood 25 H, Urine Nitrite Positive H, Urine Bilirubin Negative, Urine Urobilinogen Normal, Ur Leukocyte Esterase 500 H, Urine RBC 0-5 SEEN, Urine WBC 25-50 SEEN, Ur Squamous Epith Cells 0-5 SEEN, U rine Bacteria 1+, Urine Mucus 0 SEEN 03/15/20 16:11: POC Glucose 145 H 03/15/20 21:02: MRSA (PCR) Negative 03/15/20 21:16: POC Glucose 193 H 03/16/20 05:30: WBC 12.4 H, RBC 4.17 L, Hgb 12.7 L, Hct 40.8, MCV 97.8 H, MCH 30.5, MCHC 31.1 L, RDW Std Deviation 49.3 H, RDW Coeff of Corinne 13.7, Plt Count 197, MPV 9.3, Immature Gran % (Auto) 0.300, Neut % (Auto) 67.5, Lymph % (Auto) 16.0 L, [place] % (Auto) 14.4 H, Eos % (Auto) 1.3, Baso % (Auto) 0.5, Absolute Neuts (auto) 8.4 H, Absolute Lymphs (auto) 1.99, Nucleated RBC % 0, Differential Comment SCANNED, Diff Path Review September03/16/20 05:30: Sodium 140, Potassium 3.6, Chloride 107, Carbon Dioxide 28.0, Anion Gap 5, BUN 16, Creatinine 1.05, Estim Creat Clear Calc 70.49, Est GFR (MDRD) Af Amer 90, Est GFR (MDRD) Non-Af 75, BUN/Creatinine Ratio 15.2, Glucose 179 H, Calcium 7.7 L, Phosphorus 3.5, Magnesium 2.3 Current Medications Acetaminophen (Acetaminophen 325 Mg Tablet) 650 mg PO Q4H PRN PRN PRN Reason: Pain Score 1-10/Temp > 100.7 F Al Hydroxide/Mg Hydroxide (Mag Hydrox/Al Hydrox/Simeth 30 Ml Udc) 30 ml PO Q6H PRN PRN PRN Reason: Gastric Burning Albuterol Sulfate (Albuterol 2.5 Mg/3 Ml Vial.Neb.) 2.5 mg INHALATION Q2H PRN PRN PRN Reason: Shortness of Breath/Wheezing Albuterol/Ipratropium (Ipratropium/Albuterol Sulfate 3 Ml Ampul.Neb) 3 ml INHALATION Q6H.RT ON LICENSE OF [facility] Last Admin: 03/16/20 07:08 Dose: 3 ml Documented by: Aspirin (Aspirin 81 Mg Tab.Chew) 81 mg GT DAILY@0800 ON LICENSE OF [facility] Atorvastatin Calcium (Atorvastatin Calcium 80 Mg Tablet) 80 mg GT QHS ON LICENSE OF [facility] Last Admin: 03/15/20 21:11 Dose: 80 mg Documented by: Cilostazol (Cilostazol 50 Mg Tablet) 100 mg GT BIDAC ON LICENSE OF [facility] Last Admin: 03/16/20 07:26 Dose: 100 mg Documented by: Citalopram Hydrobromide (Citalopram 10 Mg Tablet) 10 mg GT QODAY ON LICENSE OF [facility] Clopidogrel Bisulfate (Clopidogrel Bisulfate 75 Mg Tablet) 75 mg GT DAILY ON LICENSE OF [facility] Ezetimibe (Ezetimibe 10 Mg Tablet) 10 mg GT DAILY ON LICENSE OF [facility] Enoxaparin Sodium (Enoxaparin 40 Mg/0.4 Ml Syringe) 40 mg SC DAILY ON LICENSE OF [facility] Enteral Nutritional Formula (Jevity 1.5. 1,000 Ml Bottle) 270 ml GT 5X/DAY ON LICENSE OF [facility] Last Admin: 03/16/20 05:00 Dose: 270 ml Documented by: Gabapentin (Gabapentin 300 Mg Capsule) 300 mg GT TIDCM ON LICENSE OF [facility] Last Admin: 03/15/20 16:31 Dose: 300 mg Documented by: Gemfibrozil (Gemfibrozil 600 Mg Tablet) 600 mg GT BIDAC ON LICENSE OF [facility] Last Admin: 03/16/20 07:18 Dose: 600 mg Documented by: Guaifenesin (Guaifenesin 10 Ml Udc (200mg/10ml)) 20 ml PO Q4H PRN PRN PRN Reason: COUGH Piperacillin Sod/Tazobactam (Sod 3.375 gm/ Sodium Chloride) 50 mls @ 12.5 mls/hr IV Q8 ON LICENSE OF [facility] Last Admin: 03/16/20 05:34 Dose: 12.5 mls/hr Documented by: Vancomycin IV Pharmacy to Dose (1 ea/ Sodium Chloride) 500 mls @ 250 mls/hr IV X1 PRN; Protocol PRN Reason: Rx to Dose Vancomycin HCl 1,500 mg/ (Sodium Chloride) 530 mls @ 250 mls/hr IV Q12H ON LICENSE OF [facility] Last Infusion: 03/16/20 06:39 Dose: Infused Documented by: Sodium Chloride () 1,000 mls @ 125 mls/hr IV .Q8H ON LICENSE OF [facility] Last Infusion: 03/16/20 06:39 Dose: 125 mls/hr Documented by: Insulin Glargine (Insulin Glargine 100 Units/Ml Pen) 20 units SC QHS ON LICENSE OF [facility] Last Admin: 03/15/20 21:38 Dose: 20 units Documented by: Insulin Human Lispro (Insulin Lispro 100 Unit/Ml Insuln.Pen) 12 unit SC TIDCM ON LICENSE OF [facility] Last Admin: 03/15/20 23:02 Dose: Not Given Documented by: Insulin Human Lispro (Insulin Lispro 100 Unit/Ml Insuln.Pen) 0 unit SC ACHS ON LICENSE OF [facility]; Protocol Last Admin: 03/15/20 21:38 Dose: 1 u Documented by: Levetiracetam (Levetiracetam Oral Solution 500 Mg/5 Ml) 750 mg GT BID ON LICENSE OF [facility] Last Admin: 03/15/20 21:10 Dose: 750 mg Documented by: Melatonin (Melatonin 3 Mg Tablet) 3 mg PO QHS PRN PRN PRN Reason: INSOMNIA Ondansetron HCl (Ondansetron 4 Mg/2 Ml Vial) 4 mg IV Q8H PRN PRN PRN Reason: NAUSEA/VOMITING Oxycodone HCl (Oxycodone 5 Mg Tablet) 5 mg PO Q4H PRN PRN PRN Reason: Pain Score 4-10 Senna/Docusate Sodium (Senna/Docusate Sodium 1 Tablet) 2 tablet PO BID PRN PRN PRN Reason: Constipation Sodium Chloride (0.9% Saline Lock 10 Ml Syringe) 10 - 40 ml IV UD PRN PRN Reason: SALINE FLUSH STROKE Vital Signs/Narrative: Vital Signs Temp Pulse Resp BP Pulse Ox 03/16/20 07:09 88 18 96 03/16/20 04:32 97.6 F L 77 20 H 115/67 97 Medical Necessity - Tobacco Use Smoking Status: Never smoker Assessment/Plan All Active Problems Altered mental status, unspecified (Acute) UTI (urinary tract infection) (Acute) Acute respiratory failure with hypoxia (Acute) Cerebral edema (Resolved) Hypernatremia (Resolved) Patient is a 69-year-old gentleman with 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 An assessment of sepsis secondary to left lower lobe pneumonia and UTI made treatment initiated per protocol admitted to regular nursing floor for further management 1. Sepsis secondary to left lower lobe pneumonia and suspected UTI ?Patient started on broad-spectrum antibiotic therapy Zosyn and vancomycin after cultures have been obtained admitted to regular nursing floor for further management 2. Left lower lobe pneumonia ?With suspected multidrug-resistant organisms. Management as discussed above 3. Acute cystitis ?Patient is on antibiotics cultures sent plan is adjust antibiotic therapy based on culture result 4. Acute hypoxic respiratory insufficiency ?Patient placed on nebs as well as supplemental oxygen titrated to keep saturation greater than 90 5. Acute renal insufficiency ?On IV fluid with subsequent monitoring of electrolyte 6. History of left MCA stroke -with residual right-sided hemiparesis global aphasia and dysphagia (status post PEG tube placement) 7. Hypertension - Blood pressure controlled, home medications continued with dose adjustment as needed 8. Dyslipidemia -Patient is on statin therapy, continued at home dose 9. Seizure disorder ?Patient is on Keppra did continue 10. Diabetes mellitus type II - Placed on long acting insulin, Accu-Cheks a.c. and at bedtime and covered with sliding scale insulin 11. History of left internal carotid artery occlusion ?Managed medically 12. Obesity with BMI of 39.6 ?Weight loss advised 13. Depression ?Patient is on SSRI 14. DVT prophylaxis ?Lovenox CODE STATUS full code Inpatient E&M: 52986 Subs Hosp L3
[2020-03-16 08:25] LABS: Bedside Glucose 208 mg/dL (70-110)
[2020-03-16] MEDS: Insulin Lispro 100 UNIT/ML INSULN.PEN SC ×4 (08:37→22:13)
[2020-03-16] MEDS: Insulin Lispro 100 UNIT/ML INSULN.PEN 12 UNIT SC ×3 (08:39→16:39)
[2020-03-16] MEDS: 0.9% Saline Lock 10 ML Syringe IV (08:47)
[2020-03-16] MEDS: Furosemide 40 MG/4 ML Vial IV (08:47)
[2020-03-16] MEDS: Gabapentin 300 MG Capsule GT ×3 (08:57→16:49)
[2020-03-16] MEDS: Aspirin 81 MG TAB.CHEW GT (08:57)
--- NOTE | 2020-03-16 09:12 | CASEMGMT ---
Addendum entered by Brooklyn Larry 03/16/20 13:57: JUDY faxed negative COVID test and COVID screening tool to Jennifer at [facility], placed COVID screening tool on pt's chart. Addendum entered by Brooklyn Larry 03/16/20 10:41: JUDY received call from Jennifer at [facility] stating pt has legal guardian, which is pt's brother Khanh. JUDY placed a call to Khanh. Khanh confirms pt is from [facility] and will be returning to [facility] at discharge. Jennifer faxed Guardianship paperwork to this worker. JUDY placed guardianship paperwork on pt's chart. JUDY placed green sheet and transportation form on pt's chart. Plan: Return to [facility] when medically cleared Brooklyn ISIDRO, READING INSTRUCTOR Original Note: Social Work Note Pt is listed as being from [facility]. JUDY placed a call to Jennifer at [facility]. Jennifer states pt is [facility] resident is able to return when medically cleared. Jennifer states pt will need COVID test to return. Jennifer states pt's brother Khanh is HCPOA for pt. Khanh states she's not able to look up if they have documents as their internet is down at this time. JUDY asked Jennifer to fax over documents when she is able to look them up. 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
[2020-03-16] MEDS: Enoxaparin 40 MG/0.4 ML Syringe SC (10:45)
[2020-03-16] MEDS: levETIRAcetam Oral Solution 500 MG/5 ML 750 MG GT ×2 (10:45→22:34)
[2020-03-16] MEDS: Clopidogrel Bisulfate 75 MG Tablet GT (10:45)
[2020-03-16] MEDS: Ezetimibe 10 MG Tablet GT (10:45)
[2020-03-16 11:36] LABS: Bedside Glucose 234 mg/dL (70-110)
[2020-03-16 12:30] LABS: Bedside Glucose 287 mg/dL (70-110)
[2020-03-16 17:00] LABS: Bedside Glucose 245 mg/dL (70-110)
[2020-03-16 22:26] LABS: Bedside Glucose 274 mg/dL (70-110)
[2020-03-16] MEDS: Atorvastatin Calcium 80 MG Tablet GT (22:29)
[2020-03-17] VITALS (7 sets, daily range): BP systolic 110–136; BP diastolic 72–77; PULSE 72–88; RESP 16–20; TEMP 36.4–37.1; O2SAT 95–99
[2020-03-17] MEDS: Ipratropium/Albuterol Sulfate 3 ML AMPUL.NEB INHALATION ×2 (00:48→07:28)
[2020-03-17 04:34] LABS: Hematocrit 38.4 % (40-54); Hemoglobin 12.1 g/dL (13.0-16.5); Mean Corp Hgb Conc 31.5 g/dL (32-36); Mean Corpuscular Hgb 30.1 pg (27.0-32.0); Mean Corpuscular Volume 95.5 fL (80-94); Platelet Count 200 K/mm3 (150-450); RBC Distribution Width CV 13.6 % (11.6-14.6); RBC Distribution Width SD 48.4 fl (35.1-43.9); Red Blood Count 4.02 M/mm3 (4.6-6.2); White Blood Count 7.2 K/mm3 (4.4-11.0)
[2020-03-17 04:46] LABS: Anion Gap 3 (5-15); BUN 12 mg/dL (7-18); BUN/Creat Ratio 14.2 RATIO (10-20); Calcium,Total 8.3 mg/dL (8.5-10.1); Chloride 108 mmol/L (98-107); Creatinine, Serum 0.85 mg/dL (0.70-1.30); EST Glomerular Filtration Rate 96 mL/min (>60); Est Glom Filt Rate - Afr Amer 116 mL/min (>60); Estimated Creatinine Clearance 87.08 ml/min; Glucose 201 mg/dL (74-106); Magnesium 2.1 mg/dL (1.6-2.6); Potassium 3.9 mmol/L (3.5-5.1); Sodium Level 143 mmol/L (136-145)
[2020-03-17 05:19] LABS: Vancomycin, Trough Level 20.3 ug/mL (5.0-15.0)
[2020-03-17] MEDS: Jevity 1.5. 1,000 ML Bottle 270 ML GT ×2 (06:15→10:35)
[2020-03-17] MEDS: Insulin Lispro 100 UNIT/ML INSULN.PEN SC ×2 (06:38→11:04)
[2020-03-17 06:46] LABS: Bedside Glucose 176 mg/dL (70-110)
[2020-03-17] MEDS: Gabapentin 300 MG Capsule GT ×2 (07:36→13:15)
[2020-03-17] MEDS: Cilostazol 50 MG Tablet 100 MG GT (07:36)
[2020-03-17] MEDS: Gemfibrozil 600 MG Tablet GT (07:37)
[2020-03-17] MEDS: Aspirin 81 MG TAB.CHEW GT (07:37)
--- NOTE | 2020-03-17 07:41 | PCM.PN.HOSP ---
Patient Problems: Active and Suspected Problems Altered mental status, unspecified (Acute) UTI (urinary tract infection) (Acute) Acute respiratory failure with hypoxia (Acute) Reason for Visit: Sepsis Left lower lobe pneumonia UTI Subjective: Urine cultures came back positive for Proteus mirabilis. Clinical condition improved plan is for patient to be discharged back to his ECF Objective: GENERAL: Non Communicative HEENT: Atraumatic; EYES; Anicteric, Normal Conjunctiva NECK; supple, normal thyroid, RESPIRATORY: Diminished to auscultation kunal rhonchi CARDIOVASCULAR: Regular S1 S2, GI: soft, normoactive bowel sounds, : No Renal angle tenderness; EXTREMITIES: No edema, no clubbing, MUSCULOSKELETAL: no muscle waisting NEURO: Awake; right-sided hemiparesis SKIN: No Rash PSYCH; Flat affect Vitals/I&O's: Vital Signs Temp Pulse Resp BP Pulse Ox 97.9 F 84 18 110/77 95 03/17/20 04:54 03/17/20 06:28 03/17/20 04:54 03/17/20 04:54 03/17/20 04:54 Oxygen Flow Rate (L/min) 3 Oxygen Delivery Method Nasal Cannula Weight: 121.7 kg Body Mass Index (BMI) 38.5 Finger Stick Blood Glucose 149 Intake and Output for Last 24 Hours 03/15/20 03/16/20 03/17/20 23:59 23:59 23:59 Intake Total 2089 5968.17 / 5968.17 1160 / 1160 Balance 2089 5968.17 / 5968.17 1160 / 1160 Microbiology Past 72 Hours 03/15/20 12:00 Urine, Catheterized Urine Culture - Final Proteus mirabilis 03/15/20 19:25 Sputum, Induced/Lukens Gram Stain - Final 03/15/20 12:00 Urine, Clean Catch Legionella Antigen - Final 03/15/20 12:00 Urine, Clean Catch Streptococcus pneumoniae Antigen (M - Final Laboratory Results 03/16/20 08:08: POC Glucose 208 H 03/16/20 10:17: COVID-19 (BRET) Not Detected 03/16/20 11:21: POC Glucose 234 H 03/16/20 12:27: POC Glucose 287 H 03/16/20 16:38: POC Glucose 245 H 11/06/20 22:05: POC Glucose 274 H 03/17/20 04:23: Vancomycin Trough 20.3 H 03/17/20 04:23: WBC 7.2, RBC 4.02 L, Hgb 12.1 L, Hct 38.4 L, MCV 95.5 H, MCH 30.1, MCHC 31.5 L, RDW Std Deviation 48.4 H, RDW Coeff of Corinne 13.6, Plt Count 200, MPV 9.0 03/17/20 04:23: Sodium 143, Potassium 3.9, Chloride 108 H, Carbon Dioxide 32.0, Anion Gap 3 L, BUN 12, Creatinine 0.85, Estim Creat Clear Calc 87.08, Est GFR (MDRD) Af Amer 116, Est GFR (MDRD) Non-Af 96, BUN/Creatinine Ratio 14.2, Glucose 201 H, Calcium 8.3 L, Magnesium 2.1 03/17/20 06:37: POC Glucose 176 H Current Medications Acetaminophen (Acetaminophen 325 Mg Tablet) 650 mg PO Q4H PRN PRN PRN Reason: Pain Score 1-10/Temp > 100.7 F Al Hydroxide/Mg Hydroxide (Mag Hydrox/Al Hydrox/Simeth 30 Ml Udc) 30 ml PO Q6H PRN PRN PRN Reason: Gastric Burning Albuterol Sulfate (Albuterol 2.5 Mg/3 Ml Vial.Neb.) 2.5 mg INHALATION Q2H PRN PRN PRN Reason: Shortness of Breath/Wheezing Albuterol/Ipratropium (Ipratropium/Albuterol Sulfate 3 Ml Ampul.Neb) 3 ml INHALATION Q6H.RT [facility] Last Admin: 03/17/20 07:28 Dose: 3 ml Documented by: Aspirin (Aspirin 81 Mg Tab.Chew) 81 mg GT DAILY@0800 [facility] Last Admin: 03/17/20 07:37 Dose: 81 mg Documented by: Atorvastatin Calcium (Atorvastatin Calcium 80 Mg Tablet) 80 mg GT QHS [facility] Last Admin: 03/16/20 22:29 Dose: 80 mg Documented by: Cilostazol (Cilostazol 50 Mg Tablet) 100 mg GT BIDAC [facility] Last Admin: 03/17/20 07:36 Dose: 100 mg Documented by: Citalopram Hydrobromide (Citalopram 10 Mg Tablet) 10 mg GT QODAY [facility] Clopidogrel Bisulfate (Clopidogrel Bisulfate 75 Mg Tablet) 75 mg GT DAILY [facility] Last Admin: 03/16/20 10:45 Dose: 75 mg Documented by: Ezetimibe (Ezetimibe 10 Mg Tablet) 10 mg GT DAILY [facility] Last Admin: 03/16/20 10:45 Dose: 10 mg Documented by: Enoxaparin Sodium (Enoxaparin 40 Mg/0.4 Ml Syringe) 40 mg SC DAILY [facility] Last Admin: 03/16/20 10:45 Dose: 40 mg Documented by: Enteral Nutritional Formula (Jevity 1.5. 1,000 Ml Bottle) 270 ml GT 5X/DAY [facility] Last Admin: 03/17/20 06:15 Dose: 270 ml Documented by: Gabapentin (Gabapentin 300 Mg Capsule) 300 mg GT TIDCM [facility] Last Admin: 03/17/20 07:36 Dose: 300 mg Documented by: Gemfibrozil (Gemfibrozil 600 Mg Tablet) 600 mg GT BIDAC [facility] Last Admin: 03/17/20 07:37 Dose: 600 mg Documented by: Guaifenesin (Guaifenesin 10 Ml Udc (200mg/10ml)) 20 ml PO Q4H PRN PRN PRN Reason: COUGH Piperacillin Sod/Tazobactam (Sod 3.375 gm/ Sodium Chloride) 50 mls @ 12.5 mls/hr IV Q8 [facility] Last Admin: 03/17/20 06:14 Dose: 12.5 mls/hr Documented by: Vancomycin IV Pharmacy to Dose (1 ea/ Sodium Chloride) 500 mls @ 250 mls/hr IV X1 PRN; Protocol PRN Reason: Rx to Dose Vancomycin HCl 1,500 mg/ (Sodium Chloride) 530 mls @ 250 mls/hr IV Q12H [facility] Last Infusion: 03/17/20 06:55 Dose: Infused Documented by: Sodium Chloride () 250 mls @ 15 mls/hr IV .[id number] PRN PRN Reason: Saline Flush Last Infusion: 03/17/20 04:23 Dose: 15 mls/hr Documented by: Sodium Chloride () 250 mls @ 15 mls/hr IV .[id number] PRN PRN Reason: Additional IVPB Infusion Insulin Glargine (Insulin Glargine 100 Units/Ml Pen) 20 units SC QHS [facility] Last Admin: 03/16/20 22:15 Dose: 20 units Documented by: Insulin Human Lispro (Insulin Lispro 100 Unit/Ml Insuln.Pen) 12 unit SC TIDCM [facility] Last Admin: 03/16/20 16:39 Dose: 12 u Documented by: Insulin Human Lispro (Insulin Lispro 100 Unit/Ml Insuln.Pen) 0 unit SC ACHS [facility]; Protocol Last Admin: 03/17/20 06:38 Dose: 1 u Documented by: Levetiracetam (Levetiracetam Oral Solution 500 Mg/5 Ml) 750 mg GT BID [facility] Last Admin: 03/16/20 22:34 Dose: 750 mg Documented by: Melatonin (Melatonin 3 Mg Tablet) 3 mg PO QHS PRN PRN PRN Reason: INSOMNIA Ondansetron HCl (Ondansetron 4 Mg/2 Ml Vial) 4 mg IV Q8H PRN PRN PRN Reason: NAUSEA/VOMITING Oxycodone HCl (Oxycodone 5 Mg Tablet) 5 mg PO Q4H PRN PRN PRN Reason: Pain Score 4-10 Senna/Docusate Sodium (Senna/Docusate Sodium 1 Tablet) 2 tablet PO BID PRN PRN PRN Reason: Constipation Sodium Chloride (0.9% Saline Lock 10 Ml Syringe) 10 - 40 ml IV UD PRN PRN Reason: SALINE FLUSH Last Admin: 03/16/20 08:47 Dose: 10 ml Documented by: STROKE Vital Signs/Narrative: Vital Signs Temp Pulse Resp BP Pulse Ox 03/17/20 06:28 84 03/17/20 04:54 97.9 F 87 18 110/77 95 Medical Necessity - Tobacco Use Smoking Status: Never smoker Assessment/Plan All Active Problems Altered mental status, unspecified (Acute) UTI (urinary tract infection) (Acute) Acute respiratory failure with hypoxia (Acute) Cerebral edema (Resolved) Hypernatremia (Resolved) Patient is a 69-year-old gentleman with 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 An assessment of sepsis secondary to left lower lobe pneumonia and UTI made treatment initiated per protocol admitted to regular nursing floor for further management 1. Sepsis secondary to left lower lobe pneumonia and suspected UTI ?Patient started on broad-spectrum antibiotic therapy Zosyn and vancomycin after cultures have been obtained admitted to regular nursing floor for further management 2. Left lower lobe pneumonia ?With suspected multidrug-resistant organisms. Management as discussed above 3. Acute cystitis ?Patient is on antibiotics cultures sent plan is adjust antibiotic therapy based on culture result -03/17/2020. Urine cultures came back positive for Proteus mirabilis. Clinical condition improved plan is for patient to be discharged back to his ECF 4. Acute hypoxic respiratory insufficiency ?Patient placed on nebs as well as supplemental oxygen titrated to keep saturation greater than 90 5. Acute renal insufficiency ?On IV fluid with subsequent monitoring of electrolyte 6. History of left MCA stroke -with residual right-sided hemiparesis global aphasia and dysphagia (status post PEG tube placement) 7. Hypertension - Blood pressure controlled, home medications continued with dose adjustment as needed 8. Dyslipidemia -Patient is on statin therapy, continued at home dose 9. Seizure disorder ?Patient is on Keppra did continue 10. Diabetes mellitus type II - Placed on long acting insulin, Accu-Cheks a.c. and at bedtime and covered with sliding scale insulin 11. History of left internal carotid artery occlusion ?Managed medically 12. Obesity with BMI of 39.6 ?Weight loss advised 13. Depression ?Patient is on SSRI 14. DVT prophylaxis ?Lovenox CODE STATUS full code Inpatient E&M: 89431 Subs Hosp L2
--- NOTE | 2020-03-17 08:42 | PCM.RX.CS ---
Consult Pharmacy has been consulted to manage selected antiobiotic: Vancomycin Type of Consult: Follow-up Suspected Infection: Sepsis Labs: Sodium 143 mmol/L (136-145) 03/17/20 04:23 Potassium 3.9 mmol/L (3.5-5.1) 03/17/20 04:23 Chloride 108 mmol/L (98-107) H 03/17/20 04:23 Carbon Dioxide 32.0 mmol/L (21.0-32.0) 03/17/20 04:23 Anion Gap 3 (5-15) L 03/17/20 04:23 BUN 12 mg/dL (7-18) 03/17/20 04:23 Creatinine 0.85 mg/dL (0.70-1.30) 03/17/20 04:23 Est GFR (MDRD) Af Amer 116 mL/min (>60) 03/17/20 04:23 Est GFR (MDRD) Non-Af 96 mL/min (>60) 03/17/20 04:23 BUN/Creatinine Ratio 14.2 RATIO (-20) 03/17/20 04:23 Glucose 201 mg/dL (74-106) H 03/17/20 04:23 Vancomycin Trough 20.3 ug/mL (5.0-15.0) H 03/17/20 04:23 Microbiology: Microbiology 03/15/20 12:00 Urine, Catheterized Urine Culture - Final Proteus mirabilis 03/15/20 19:25 Sputum, Induced/Lukens Gram Stain - Final 03/15/20 12:00 Urine, Clean Catch Legionella Antigen - Final 03/15/20 12:00 Urine, Clean Catch Streptococcus pneumoniae Antigen (M - Final Goal Trough: 15-20 mcg/mL Pharmacy Plan for Drug Dosing: VANCOMYCIN LEVEL RECEIVED Current Vancomycin Dose: 1500mg q12h (0430,1630) Number of Doses Received: 1750mg x1, 1500mg x3 Vancomycin Level: 20.3 Hours Since Last Dose: 12 Renal Function: SrCr 0.85 Renal Function Trend: SrCr is decreasing. Was 1.24, then 1.05 Lab/Micro: Vancomycin Plan/Comments: will decrease dose to 1250mg q12h. will also time the next dose 3 hours later to allow for a little more time to clear. Pending Level: 0830 on 03/19/20 Pharmacy Service will continue to monitor and adjust dosing as required. Follow-Up Labs: Trough Vancomycin - 03/19 at 0830
--- NOTE | 2020-03-17 09:53 | PCM.TXEXTCAR ---
- Diet 03/15/20 16:45 Diet: Nothing Per Oral Is pt able to select menu?: No - Routine Orders/Code Status O2 Frequency: PRN Keep PO Greater than or Equal to (%): 92 Code Status: Full Code - Therapies Physical Therapy: Eval and Treat Occupational Therapy: Eval and Treat Speech Therapy: Eval and Treat - Allergies/Procedures Done in Hospital Allergies/Adverse Reactions: Allergies No Known Allergies Allergy (Verified 03/15/20 11:21) - Type of Care/Length of Stay Estimated LOS: More Than 30 Days Type of Care Needed: Intermediate Rehab Potential: Fair Prognosis: Fair - Additional Orders/Day of Discharge Day of Discharge: 03/17/20 - Dietary and Speech Recommendations Dietitian Recommendations/Changes: Will make pt NPO until INSTRUCTIONAL SUPPORT TECHNICIAN able to assess pt to ensure pt safe to tolerate PO diet. Will continue to provide Jevity 1.5 bolus feeds via PEG 270 ml 5 times per day w/ 105 ml H2O flush before and after each feed to provide 2025 calories, 86 grams protein, 2076 ml total fluid per day. TF to meet 100% of pt estimated nutrition needs. - Follow Up Care Primary Care Physician: Marcin Joseph MD [Primary Care Provider] -
--- NOTE | 2020-03-17 09:55 | DS.PCM_ITS ---
Discharge Date and Diagnosis - Problem List Patient Problems: Active and Suspected Problems Altered mental status, unspecified (Acute) UTI (urinary tract infection) (Acute) Acute respiratory failure with hypoxia (Acute) Date of Admission: 03/15/20 - Primary Discharge Diagnosis Acute Problems: Active Problems Altered mental status, unspecified (Acute) UTI (urinary tract infection) (Acute) Acute respiratory failure with hypoxia (Acute) - Secondary Discharge Diagnosis Chronic Problems: Chronic Problems Chronic left arterial ischemic stroke, MCA (middle cerebral artery) (Chronic) Global aphasia (Chronic) Occlusion of left internal carotid artery (Chronic) Diabetes mellitus type 2 in obese (Chronic) Hypertension (Chronic) Hyperlipidemia (Chronic) Dysphagia (Chronic) 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 Duncan Sleep-disordered breathing (Chronic) LVH (left ventricular hypertrophy) (Chronic) Diastolic dysfunction (Chronic) Hospital Course and Treatment Imaging Results: Clinical Impression(s) from Imaging Studies Chest X-Ray 03/15/20 11:30 IMPRESSION: Findings suggestive of early infiltrate in the posterior medial segment of the left lower lobe. Electronically Signed: Ottoniel Walls, at 12:41 EST , Service support , Microbiology 03/15/20 19:25 Sputum, Induced/Lukens Gram Stain - Final 03/15/20 19:25 Sputum, Induced/Lukens Respiratory Culture - Preliminary Appears to be normal respiratory tiffanie. Further studies to follow. 03/15/20 12:00 Urine, Catheterized Urine Culture - Final Proteus mirabilis 03/15/20 12:00 Urine, Clean Catch Legionella Antigen - Final 03/15/20 12:00 Urine, Clean Catch Streptococcus pneumoniae Antigen (M - Final Operations: None Summary of Care Provided: Patient is a 69-year-old gentleman with 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 An assessment of sepsis secondary to left lower lobe pneumonia and UTI made treatment initiated per protocol admitted to regular nursing floor for further management 1. Sepsis secondary to left lower lobe pneumonia and suspected UTI ?Patient started on broad-spectrum antibiotic therapy Zosyn and vancomycin after cultures have been obtained admitted to regular nursing floor for further management 2. Left lower lobe pneumonia ?With suspected multidrug-resistant organisms. Management as discussed above 3. Acute cystitis with Proteus mirabilis ?Patient is on antibiotics cultures sent plan is adjust antibiotic therapy based on culture result -03/17/2020. Urine cultures came back positive for Proteus mirabilis. Clinical condition improved ; patient discharged back to his ECF 4. Acute hypoxic respiratory insufficiency ?Patient placed on nebs as well as supplemental oxygen titrated to keep satur ation greater than 90 5. Acute renal insufficiency ?On IV fluid with subsequent monitoring of electrolyte 6. History of left MCA stroke -with residual right-sided hemiparesis global aphasia and dysphagia (status post PEG tube placement) 7. Hypertension - Blood pressure controlled, home medications continued with dose adjustment as needed 8. Dyslipidemia -Patient is on statin therapy, continued at home dose 9. Seizure disorder ?Patient is on Keppra did continue 10. Diabetes mellitus type II - Placed on long acting insulin, Accu-Cheks a.c. and at bedtime and covered with sliding scale insulin 11. History of left internal carotid artery occlusion ?Managed medically 12. Obesity with BMI of 39.6 ?Weight loss advised 13. Depression ?Patient is on SSRI 14. DVT prophylaxis ?Lovenox Patient Problems: Active and Suspected Problems Altered mental status, unspecified (Acute) UTI (urinary tract infection) (Acute) Acute respiratory failure with hypoxia (Acute) Objective: GENERAL: Non Communicative HEENT: Atraumatic; EYES; Anicteric, Normal Conjunctiva NECK; supple, normal thyroid, RESPIRATORY: Diminished to auscultation kunal rhonchi CARDIOVASCULAR: Regular S1 S2, GI: soft, normoactive bowel sounds, : No Renal angle tenderness; EXTREMITIES: No edema, no clubbing, MUSCULOSKELETAL: no muscle waisting NEURO: Awake; right-sided hemiparesis SKIN: No Rash PSYCH; Flat affect - Physical Exam Vitals/I&O's: Vital Signs Temp Pulse Resp BP Pulse Ox 97.9 F 85 20 H 110/77 95 03/17/20 04:54 03/17/20 07:59 03/17/20 07:28 03/17/20 04:54 03/17/20 07:28 Oxygen Flow Rate (L/min) 2 Oxygen Delivery Method Nasal Cannula Weight: 121.7 kg Body Mass Index (BMI) 38.5 Finger Stick Blood Glucose 149 Intake and Output for Last 24 Hours 03/15/20 03/16/20 03/17/20 23:59 23:59 23:59 Intake Total 2089 5968.17 / 5968.17 1160 / 1160 Balance 2089 5968.17 / 5968.17 1160 / 1160 Microbiology Past 72 Hours 03/15/20 19:25 Sputum, Induced/Lukens Gram Stain - Final 03/15/20 19:25 Sputum, Induced/Lukens Respiratory Culture - Preliminary Appears to be normal respiratory tiffanie. Further studies to follow. 03/15/20 12:00 Urine, Catheterized Urine Culture - Final Proteus mirabilis 03/15/20 12:00 Urine, Clean Catch Legionella Antigen - Final 03/15/20 12:00 Urine, Clean Catch Streptococcus pneumoniae Antigen (M - Final Laboratory Results 03/16/20 10:17: COVID-19 ([facility]RET) Not Detected 03/16/20 11:21: POC Glucose 234 H 03/16/20 12:27: POC Glucose 287 H 03/16/20 16:38: POC Glucose 245 H 03/16/20 22:05: POC Glucose 274 H 03/17/20 04:23: Vancomycin Trough 20.3 H 03/17/20 04:23: WBC 7.2, RBC 4.02 L, Hgb 12.1 L, Hct 38.4 L, MCV 95.5 H, MCH 30.1, MCHC 31.5 L, RDW Std Deviation 48.4 H, RDW Coeff of Corinne 13.6, Plt Count 200, MPV 9.0 03/17/20 04:23: Sodium 143, Potassium 3.9, Chloride 108 H, Carbon Dioxide 32.0, Anion Gap 3 L, BUN 12, Creatinine 0.85, Estim Creat Clear Calc 87.08, Est GFR (MDRD) Af Amer 116, Est GFR (MDRD) Non-Af 96, BUN/Creatinine Ratio 14.2, Glucose 201 H, Calcium 8.3 L, Magnesium 2.1 03/17/20 06:37: POC Glucose 176 H Current Medications Acetaminophen (Acetaminophen 325 Mg Tablet) 650 mg PO Q4H PRN PRN PRN Reason: Pain Score 1-10/Temp > 100.7 F Al Hydroxide/Mg Hydroxide (Mag Hydrox/Al Hydrox/Simeth 30 Ml Udc) 30 ml PO Q6H PRN PRN PRN Reason: Gastric Burning Albuterol Sulfate (Albuterol 2.5 Mg/3 Ml Vial.Neb.) 2.5 mg INHALATION Q2H PRN PRN PRN Reason: Shortness of Breath/Wheezing Albuterol/Ipratropium (Ipratropium/Albuterol Sulfate 3 Ml Ampul.Neb) 3 ml INHALATION Q6H.RT [facility] Last Admin: 03/17/20 07:28 Dose: 3 ml Documented by: Aspirin (Aspirin 81 Mg Tab.Chew) 81 mg GT DAILY@0800 [facility] Last Admin: 03/17/20 07:37 Dose: 81 mg Documented by: Atorvastatin Calcium (Atorvastatin Calcium 80 Mg Tablet) 80 mg GT QHS [facility] Last Admin: 03/16/20 22:29 Dose: 80 mg Documented by: Cilostazol (Cilostazol 50 Mg Tablet) 100 mg GT BIDAC [facility] Last Admin: 03/17/20 07:36 Dose: 100 mg Documented by: Citalopram Hydrobromide (Citalopram 10 Mg Tablet) 10 mg GT QODAY [facility] Clopidogrel Bisulfate (Clopidogrel Bisulfate 75 Mg Tablet) 75 mg GT DAILY [facility] Last Admin: 03/16/20 10:45 Dose: 75 mg Documented by: Ezetimibe (Ezetimibe 10 Mg Tablet) 10 mg GT DAILY [facility] Last Admin: 03/16/20 10:45 Dose: 10 mg Documented by: Enoxaparin Sodium (Enoxaparin 40 Mg/0.4 Ml Syringe) 40 mg SC DAILY [facility] Last Admin: 03/16/20 10:45 Dose: 40 mg Documented by: Enteral Nutritional Formula (Jevity 1.5. 1,000 Ml Bottle) 270 ml GT 5X/DAY [facility] Last Admin: 03/17/20 06:15 Dose: 270 ml Documented by: Gabapentin (Gabapentin 300 Mg Capsule) 300 mg GT TIDCM [facility] Last Admin: 03/17/20 07:36 Dose: 300 mg Documented by: Gemfibrozil (Gemfibrozil 600 Mg Tablet) 600 mg GT BIDAC [facility] Last Admin: 03/17/20 07:37 Dose: 600 mg Documented by: Guaifenesin (Guaifenesin 10 Ml Udc (200mg/10ml)) 20 ml PO Q4H PRN PRN PRN Reason: COUGH Piperacillin Sod/Tazobactam (Sod 3.375 gm/ Sodium Chloride) 50 mls @ 12.5 mls/hr IV Q8 [facility] Last Admin: 03/17/20 06:14 Dose: 12.5 mls/hr Documented by: Vancomycin IV Pharmacy to Dose (1 ea/ Sodium Chloride) 500 mls @ 250 mls/hr IV X1 PRN; Protocol PRN Reason: Rx to Dose Sodium Chloride () 250 mls @ 15 mls/hr IV .[id number] PRN PRN Reason: Saline Flush Last Infusion: 03/17/20 04:23 Dose: 15 mls/hr Documented by: Sodium Chloride () 250 mls @ 15 mls/hr IV .[id number] PRN PRN Reason: Additional IVPB Infusion Vancomycin HCl 1,250 mg/ (Sodium Chloride) 275 mls @ 167 mls/hr IV Q12H [facility] Insulin Glargine (Insulin Glargine 100 Units/Ml Pen) 20 units SC QHS [facility] Last Admin: 03/16/20 22:15 Dose: 20 units Documented by: Insulin Human Lispro (Insulin Lispro 100 Unit/Ml Insuln.Pen) 12 unit SC TIDCM [facility] Last Admin: 03/16/20 16:39 Dose: 12 u Documented by: Insulin Human Lispro (Insulin Lispro 100 Unit/Ml Insuln.Pen) 0 unit SC ACHS [facility]; Protocol Last Admin: 03/17/20 06:38 Dose: 1 u Documented by: Levetiracetam (Levetiracetam Oral Solution 500 Mg/5 Ml) 750 mg GT BID [facility] Last Admin: 03/16/20 22:34 Dose: 750 mg Documented by: Melatonin (Melatonin 3 Mg Tablet) 3 mg PO QHS PRN PRN PRN Reason: INSOMNIA Ondansetron HCl (Ondansetron 4 Mg/2 Ml Vial) 4 mg IV Q8H PRN PRN PRN Reason: NAUSEA/VOMITING Oxycodone HCl (Oxycodone 5 Mg Tablet) 5 mg PO Q4H PRN PRN PRN Reason: Pain Score 4-10 Senna/Docusate Sodium (Senna/Docusate Sodium 1 Tablet) 2 tablet PO BID PRN PRN PRN Reason: Constipation Sodium Chloride (0.9% Saline Lock 10 Ml Syringe) 10 - 40 ml IV UD PRN PRN Reason: SALINE FLUSH Last Admin: 03/16/20 08:47 Dose: 10 ml Documented by: Home Medications: Medications to take at Discharge Gabapentin [Neurontin Solution] 300 mg GT TIDCM 05/11/17 Gemfibrozil [Lopid] 600 mg GT BIDAC 05/11/17 Aspirin [Aspirin, Baby] 81 mg GT DAILY@0800 08/16/17 Citalopram [Celexa] 10 mg GT QODAY 08/16/17 Clopidogrel Bisulfate [Plavix] 75 mg GT DAILY 08/16/17 Atorvastatin Calcium [Lipitor] 80 mg GT QHS 10/07/17 Ezetimibe 10 mg GT DAILY 01/14/19 Acetaminophen 1,000 mg GT TID 03/15/20 Cilostazol 100 mg GT BID 03/15/20 Insulin Glargine [Lantus SoloStar Pen] 20 units SC QHS 03/15/20 Insulin Lispro [Humalog] 12 unit SC TIDCM 03/15/20 Insulin Lispro [Humalog] See Protocol SC TIDCM 03/15/20 Levetiracetam [Keppra] 500 mg GT DAILY@1200 03/15/20 Levetiracetam [Keppra] 750 mg GT BID 03/15/20 Mag Hydrox/Aluminum Hyd/Simeth [Tari-Lanta Liquid] 10 ml GT TID 03/15/20 Acetaminophen [Tylenol Tablet] 650 mg PO Q4H PRN PRN tablet 03/17/20 Albuterol Aerosols [Ventolin Aerosols] 2.5 mg INHALATION Q2H PRN PRN vial.neb. 03/17/20 Cefdinir [Omnicef] 250 mg GT Q12H 7 Days #70 ml 03/17/20 Guaifenesin [Robitussin] 20 ml PO Q4H PRN PRN udc 03/17/20 Jevity 1.5 270 ml GT 5X/DAY bottle 03/17/20 Following Prescriptions Were Given to Patient: Cefdinir [Omnicef] 250 mg GT Q12H 7 Days #70 ml Transmission Status: Pending to [facility] Primary Care Physician: Marcin Joseph MD [Primary Care Provider] - Disposition: Halfway facility Minutes spent on discharge:: 45 Patient Condition:: Stable Medical Necessity - Tobacco Use Smoking Status: Never smoker Meaningful Use Info Meaningful Use Diagnoses (Choose all that apply): None applicable Inpatient E&M: 68626 [facility] L[facility]
[2020-03-17] MEDS: Citalopram 10 MG Tablet GT (10:34)
[2020-03-17] MEDS: levETIRAcetam Oral Solution 500 MG/5 ML 750 MG GT (10:34)
[2020-03-17] MEDS: Insulin Lispro 100 UNIT/ML INSULN.PEN 12 UNIT SC ×2 (10:35→13:15)
[2020-03-17] MEDS: Clopidogrel Bisulfate 75 MG Tablet GT (10:35)
[2020-03-17] MEDS: Ezetimibe 10 MG Tablet GT (10:35)
[2020-03-17] MEDS: Enoxaparin 40 MG/0.4 ML Syringe SC (10:35)
[2020-03-17 11:16] LABS: Bedside Glucose 187 mg/dL (70-110)
[2020-03-17 13:26] LABS: Bedside Glucose 238 mg/dL (70-110)
--- NOTE | 2020-03-17 14:13 | NURSING ---
report called to Jazmin Chicas pt transported via cot
[2020-03-20 09:43] LABS: Pathologist Review Reviewed
== END 2020-03-17 13:56 | disposition skilled nursing facility (03) | DRG 871 ==
LOC: ED 12:52 → MS3 13:42
PROVIDERS: Admitting Provider Internal Medicine; Emergency Provider Emergency Medicine; PCP Family Medicine; Visit Provider Internal Medicine
DX: A41.9 Sepsis, unspecified organism (principal); J18.9 Pneumonia, unspecified organism; Z16.24 Resistance to multiple antibiotics; I69.351 Hemiplegia and hemiparesis following cerebral infarction affecting right dominant side; N17.9 Acute kidney failure, unspecified; N30.00 Acute cystitis without hematuria; R09.02 Hypoxemia; B96.4 Proteus (mirabilis) (morganii) as the cause of diseases classified elsewhere; I11.9 Hypertensive heart disease without heart failure; I69.320 Aphasia following cerebral infarction; I69.391 Dysphagia following cerebral infarction; G40.909 Epilepsy, unspecified, not intractable, without status epilepticus; E11.9 Type 2 diabetes mellitus without complications; E78.5 Hyperlipidemia, unspecified; F32.9 Major depressive disorder, single episode, unspecified; E66.9 Obesity, unspecified; Z68.39 Body mass index [BMI] 39.0-39.9, adult; Z93.1 Gastrostomy status; Z79.4 Long term (current) use of insulin; Z79.02 Long term (current) use of antithrombotics/antiplatelets; Z79.82 Long term (current) use of aspirin; Z79.899 Other long term (current) drug therapy
CPT/HCPCS: 36415; 71045; 80048; 80053; 80202; 81001; 82962; 83605; 83735; 84100; 85025; 85027; 87040; 87070; 87077; 87086; 87088; 87186; 87205; 87449; 87635; 87641; 92526; 92610; 94640; 94762; 97110; 97162; 97166; 97530; 97802; 99251; 99285; J7030; J7040; J7050; P9612; A4216; G0463; J1940; U0002

== ENCOUNTER → 2020-04-11 13:41 | Outpatient (CLI) | payer SELFPAY ==
--- NOTE | 2020-04-11 17:45 | SP.MBSS_ITS ---
Modified Barium Swallow - Patient Information Study Date: 04/11/20 Study Time: 13:55 Direct Billable Minutes: 65 Total Minutes procedure & reportin Diagnosis: Dysphagia (R13.12) Referring Physician: Marcin Joseph Reason for Referral: The patient is a 69 year old male referred for a modified barium swallow (MBS) study to objectively assess the patients oropharyngeal swallow function under fluoroscopy secondary to a prior cerebrovascular accident involving the left cerebral cortex. Medical History: Cerebrovascular accident involving the left cerebral hemisphere with resulting right hemiparesis, aphasia, apraxia, dysarthria, and dysphagia; pneumonia, unspecified convulsions, major depressive disorder, peripheral vascular disease, diabetes mellitus with diabetic neuropathy, hyperlipidemia, obstructive sleep apnea, essential hypertension, chronic ischemic heart disease - Penetration-Aspiration Scale Score Thin liquid - 5 mL tsp.: Result: 1= does not enter airway Thin liquids via straw (single sip -1): Result: 1= does not enter airway Thin liquids via straw (single sip -2): Result: 2= enter airway/above vocal folds/ejected Thin liquids via straw (single sip -3): Result: 1= does not enter airway Thin liquids via straw (single sip -4): Result: 2= enter airway/above vocal folds/ejected Pudding Result: 1= does not enter airway Solid Textures: Result: 1= does not enter airway Thin liquids via straw (single sip -5): Result: 1= does not enter airway - Oral Phase Labial Seal: No Labial Escape Tongue Control During Bolus Hold: Posterior escape of less than half of bolus Bolus Preparation/Mastication: Timely and efficient chewing and mashing Bolus Transport/Lingual Motion: Brisk tongue motion Oral Residue: Residue collection on oral structures - Pharyngeal Phase Initiation of Pharyngeal Swallow: Bolus head in valleculae Soft Palate Elevation: No bolus between soft palate and pharyngeal wall Laryngeal Elevation: Partial superior movement thyroid cart/partial apprx aryt- epig petiole Anterior Hyoid Excursion: Partial anterior movement Epiglottic Movement: Complete inversion Laryngeal Vestibule Closure at Height of Swallow: Incomplete; narrow column of air/contrast in laryngeal vestibule Pharyngeal Stripping Wave: Present - complete Pharyngoesophageal Segment Opening: Complete distension and complete duration; no obstruction of flow Tongue Base Retraction: Narrow column of contrast between tongue base & post. pharyngeal wall Pharyngeal Residue: Collection of residue within or on pharyngeal structures - Diagnosis/Impression Diagnosis: Dysphagia (R13.12) Impression: The patient presents with mild to moderate oropharyngeal dysphagia (DSRS: 3; BRS: 2) with intermittent transient and shallow penetration of thin liquids status post a left sided cerebrovascular accident He demonstrates frequent premature posterior bolus loss during ingestion of thin liquids; while this did not result in any significant bolus misdirection to the laryngeal vestibule, this is his most significant risk of airway compromise, placing a premium on seated placement / posture during intake; this does disrupt an otherwise age appropriate pharyngeal phase synchrony. Trials of solids were limited to 1/4th of a Ingrid Doone shortbread cookie vs. the traditional 1/2 trial size due to his edentulous status; I recommended a mechanical soft textured diet, though advancement to a regular soft textured diet with tougher solids cut into bite sized pieces may be appropriate pending clinical trials (if not already known), with clinical advancement appropriate without need for repeated objective testing with solid textures. He was unable to sufficiently follow directions to execute compensatory measures attributed to his aphasia. He further demonstrates frequent fragmented swallowing (piecemeal deglutition) with thin liquids, and a mild reduction in hyolaryngeal excursion and duration, though he appeared to be compensating for these findings sufficiently under fluoroscopy. Confounding factors include his body habitus, which did complicate views, though not significantly enough to invalidate the results of the assessment. - Recommendations Comment: DIET TEXTURE RECOMMENDATIONS: mechanical soft textured (IDDSI: 5), thin liquid diet (IDDSI: 0) diet RECOMMENDED COMPENSATORY STRATEGIES: supervision with assistance as needed, consider cutting tougher textures into bite sized pieces, reduced bolus volume / rate of ingestion, consider straws with all liquids, seated upright at 90 degrees during PO intake, remain upright for 30-60 minutes post meal (GERD precaution) Need for Skilled Speech Therapy Services: Yes Education Completed: 1. Described result of evaluation., 7. Pt requires further education on strategies & risks. - Status Active ST Patient: Not Active
== END ==
PROVIDERS: PCP Family Medicine; Referring Provider Family Medicine; Visit Provider Family Medicine
DX: R13.10 Dysphagia, unspecified (principal)
CPT/HCPCS: 74230; 92611

== ENCOUNTER 2020-09-28 03:51 | Emergency (ER) | payer MEDICARE, OTHER, MEDICAID, SELFPAY ==
[2020-09-28 03:53] VITALS: BP 140/76; PULSE 62; RESP 14; TEMP 36; O2SAT 98; BMI 40.5
--- NOTE | 2020-09-28 04:33 | CT_ITS ---
STUDY: CT ABDOMEN AND PELVIS WITH CONTRAST REASON FOR EXAM: Male, 70 years old. Abd distension, PEG tube replacement -- IV PO Contrast RADIATION DOSAGE (If Supplied By Facility): CTDIvol = ( 13.75 ) mGy, DLP = ( 1321.56 ) mGycm TECHNIQUE: Transaxial images were obtained from the dome of the diaphragm to the symphysis pubis without oral contrast. IV 100mL Isovue-370 was administered. Sagittal and coronal images were reconstructed. Individualized dose optimization techniques were used for this CT. COMPARISON: 04.28.13 CT angiogram abdomen and pelvis FINDINGS: The visualized lung bases are unremarkable. The visualized portions of the heart are within normal limits. Normal liver. Normal gallbladder and extrahepatic biliary system. Normal spleen. Normal pancreas. Normal bilateral adrenal glands. Normal right kidney. Normal left kidney. There is a small amount of radiopaque material within the stomach. There is a percutaneous endogastric tube. Normal small intestine. There is mild to moderate stool in the colon. There is a fairly wide diastases of the rectus muscle in the low abdomen into which there is intra-abdominal fat and large bowel with a few loops of small bowel herniating into this area. The opening measures 9.4 cm. The hernia measures at least 10.0 x 16.7 x 8.5 cm.. The appendix is visualized and appears normal. Aorta is partially calcified. This postoperative change at the level of the bifurcation. There are stenosed pauma common iliac arteries with stents. There is a visualize graft involving the bilateral common iliac arteries with good contrast enhancement. Normal inferior vena cava. Normal retroperitoneum. There is a thick walled appearance of the bladder which appears to have scarring or pulling towards the anterior aspect of the abdomen is partially extending out of the lower abdomen through the aforementioned diastases. The wall of the bladder measures 1 cm. Normal visualized prostate gland. There is a diastases of the rectus muscle. There is a left-sided percutaneous endogastric tube there is bilateral dependent edema There are diffuse degenerative changes of the visualized lumbar spine. CT/Abdomen/Pelvis WITH Contrast IMPRESSION: Large diastases of the rectus muscle at the level of the pelvis with herniation of portions of the large bowel small bowel and intraperitoneal fat, as detailed above without evidence of obstruction. Wall thickening of the bladder compatible with cystitis. Percutaneous endogastric tube. No hydronephrosis. No appendicitis. 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 Electronically Signed: Keri Bateman MD at 6:24 EDT Tel , Service support ,
[2020-09-28 05:05] LABS: Absolute Neutrophil Count 4.5 X10^3/uL (2.0-7.7); Basophil# 0.04 X10^3/uL; Basophil% 0.5 % (0-1); Eosinophils% 2.6 % (0-5); Hematocrit 44.2 % (40-54); Hemoglobin 14.1 g/dL (13.0-16.5); Lymphocyte % 29.6 % (19-41); Mean Corp Hgb Conc 31.9 g/dL (32-36); Mean Corpuscular Hgb 29.9 pg (27.0-32.0); Mean Corpuscular Volume 93.6 fL (80-94); Mean Platelet Vol. 9.2 fl (6.2-12.0); Monocyte# 0.74 X10^3/uL; Monocyte% 9.5 % (0-10); NRBC Flagged by Analyzer 0 % (0-5); Neutrophil # 4.48 X10^3/uL (2.7-7.7); Neutrophil % 57.5 % (47-70); Platelet Count 246 K/mm3 (150-450); RBC Distribution Width CV 13.1 % (11.6-14.6); Red Blood Count 4.72 M/mm3 (4.6-6.2); White Blood Count 7.8 K/mm3 (4.4-11.0)
[2020-09-28 05:21] LABS: ALB/GLOB Ratio 0.9 RATIO (0.9-2.4); AST(SGOT) 21 U/L (15-37); Alanine Aminotransfer ALT/SGPT 24 U/L (16-61); Albumin, Serum 3.1 g/dL (3.2-5.0); Alkaline Phosphatase 135 U/L (45-117); Anion Gap 2 (5-15); BUN 12 mg/dL (7-18); BUN/Creat Ratio 13.9 RATIO (10-20); Calcium,Total 8.5 mg/dL (8.5-10.1); Chloride 109 mmol/L (98-107); Creatinine, Serum 0.86 mg/dL (0.70-1.30); EST Glomerular Filtration Rate 93 mL/min (>60); Est Glom Filt Rate - Afr Amer 113 mL/min (>60); Estimated Creatinine Clearance 82.21 ml/min; Globulin 3.6 g/dL (2.2-4.2); Glucose 171 mg/dL (74-106); Lipase 371 U/L (73-393); Potassium 4.2 mmol/L (3.5-5.1); Protein, Total 6.7 g/dL (6.4-8.2); Sodium Level 141 mmol/L (136-145)
[2020-09-28 05:49] VITALS: BP 145/79; PULSE 62; RESP 18; O2SAT 98
[2020-09-28] MEDS: DiphenhydrAMINE 50 MG/ML Syringe IV (05:53)
[2020-09-28] MEDS: MethylPREDNISolone 125 MG/2 ML Vial IV (05:54)
--- NOTE | 2020-09-28 06:16 | EDS_ITS ---
HPI History of Present Illness Chief Complaint: Abd Pain Informant: SNF Limited: other Narrative Narrative: Patient has a history of a stroke leaving him with an aphasia and he is not able to contribute to history. Per care home the patient's PEG tube fell out at some point after his last used yesterday evening. They state that he does take oral foods, but gets his medications through his PEG tube. They also report that his belly seems more distended than usual. He has not vomited. No diarrhea. PFSH PFS Medical History Anxiety Depression Diabetes Dysphagia Hypertension Peripheral vascular disease Sleep apnea Stroke/cerebrovascular accident Home Medications gabapentin [Neurontin] 300 mg G-TUBE TIDCM 05/11/17 [History Last Taken 03/15/20] gemfibrozil 600 mg G-TUBE BIDAC 05/11/17 [History Last Taken 03/15/20] aspirin 81 mg G-TUBE DAILY@0800 08/16/17 [History Last Taken 03/15/20] citalopram 10 mg G-TUBE QODAY 08/16/17 [History Last Taken 03/15/20] clopidogrel 75 mg G-TUBE DAILY 08/16/17 [History Last Taken 03/15/20] atorvastatin 80 mg G-TUBE QHS 10/07/17 [History Last Taken 03/14/20] ezetimibe 10 mg GT DAILY 01/14/19 [History Last Taken 03/14/20] Acetaminophen 1,000 mg G-TUBE TID 03/15/20 [History Last Taken 03/15/20] alum-mag hydroxide-simeth 10 ml GT TID 03/15/20 [History Last Taken 03/15/20] cilostazol 100 mg GT BID 03/15/20 [History Last Taken 03/15/20] insulin glargine 20 units SC QHS 03/15/20 [History Last Taken 03/14/20] insulin lispro 12 unit SC TIDCM 03/15/20 [History Last Taken 03/15/20] insulin lispro See Protocol SC TIDCM 03/15/20 [History Last Taken 03/14/20] levetiracetam 500 mg GT DAILY@1200 03/15/20 [History Last Taken 03/14/20] levetiracetam 750 mg GT BID 03/15/20 [History Last Taken 03/15/20] acetaminophen 650 mg PO Q4H PRN PRN tab 03/17/20 [Rx Last Taken Unknown] albuterol sulfate 2.5 mg INHALATION Q2H PRN PRN vial.neb. 03/17/20 [Rx Last Taken Unknown] guaifenesin 20 ml PO Q4H PRN PRN udc 03/17/20 [Rx Last Taken Unknown] lactose-reduced food with fibr 270 ml GT 5X/DAY bottle 03/17/20 [Rx Last Taken Unknown] Allergy/AdvReac Type Severity Reaction Status Date / Time No Known Allergies Allergy Verified 09/28/20 03:55 Social History Smoking Status: Never smoker ROS ROS ED Review of Systems ROS Unobtainable: other Details: Dense expressive aphasia. EXAM Physical Exam Const Vital Signs: 09/28/20 03:53 09/28/20 05:49 Temperature 96.8 F L Temperature Source Temporal Pulse Rate 62 62 Respiratory Rate 14 18 Blood Pressure 140/76 H 145/79 H Blood Pressure Mean 97 101 Pulse Ox 98 98 Oxygen Delivery Method Room Air Room Air Positive well nourished and well developed General Appearance ED: well developed HEENT Reports normocephalic and head/scalp atraumatic Eyes PERRL Neck no lymphadenopathy, supple and no JVD General: Negative for tenderness Resp normal respiratory effort and clear to auscultation bilaterally Cardio regular rate, regular rhythm and no murmurs GI normal to inspection, nondistended, normoactive bowel sounds GI Narrative: Mild epigastric tenderness to palpation. PEG tube site is clean and dry. There is no surrounding erythema or induration. No guarding, rebound, or peritoneal signs. Palpation: soft Back/Spine Back/Spine Narrative: Nontender. Extremity General Extremety ED: Negative for edema or tenderness General Extremity: Negative for edema Neuro Sensorium / Orientation: alert Psych mental status grossly normal Skin no rashes or lesions noted MDM MDM Lab Data Labs: Laboratory Results - last 24 hr 09/28/20 09/28/20 09/28/20 04:46 04:46 04:54 WBC Cancelled 7.8 Corrected WBC Cancelled RBC Cancelled 4.72 Hgb Cancelled 14.1 Hct Cancelled 44.2 MCV Cancelled 93.6 MCH Cancelled 29.9 MCHC Cancelled 31.9 L RDW Std Deviation Cancelled 45.0 H RDW Coeff of Corinne Cancelled 13.1 Plt Count Cancelled 246 MPV Cancelled 9.2 Immature Gran % (Auto) Cancelled 0.300 Neut % (Auto) Cancelled 57.5 Lymph % (Auto) Cancelled 29.6 [place] % (Auto) Cancelled 9.5 Eos % (Auto) Cancelled 2.6 Baso % (Auto) Cancelled 0.5 Absolute Neuts (auto) Cancelled 4.5 Absolute Lymphs (auto) Cancelled 2.30 Total Counted Cancelled Neutrophils % (Manual) Cancelled Band Neutrophils % Cancelled Lymphocytes % (Manual) Cancelled Monocytes % (Manual) Cancelled Eosinophils % (Manual) Cancelled Basophils % (Manual) Cancelled Metamyelocytes % Cancelled Myelocytes % Cancelled Promyelocytes % Cancelled Blast Cells % Cancelled Plasma Cell % (Manual) Cancelled Other Cells % Cancelled Nucleated RBC % Cancelled 0 Nucleated RBCs/100 WBC Cancelled Differential Comment Cancelled Diff Path Review Cancelled Hypersegmented Neuts Cancelled Atypical Lymphocytes Cancelled Reactive Lymphocytes Cancelled Smudge Cells Cancelled Toxic Granulation Cancelled Toxic Vacuolation Cancelled Dohle Bodies Cancelled Venkatesh Rods Cancelled Platelet Estimate Cancelled Plt Morphology Comment Cancelled RBC Morphology Cancelled Polychromasia Cancelled Hypochromasia Cancelled Poikilocytosis Cancelled Basophilic Stippling Cancelled Anisocytosis Cancelled Microcytosis Cancelled Macrocytosis Cancelled Spherocytes Cancelled Sickle Cells Cancelled Target Cells Cancelled Tear Drop Cells Cancelled Ovalocytes Cancelled Stomatocytes Cancelled [place] Bodies Cancelled K[place]i Cells Cancelled Bite Cells Cancelled Crenated Cell Cancelled Acanthocytes (Spur) Cancelled Rouleaux Cancelled Schistocytes Cancelled Sodium 141 Potassium 4.2 Chloride 109 H Carbon Dioxide 30.0 Anion Gap 2 L BUN 12 Creatinine 0.86 Estim Creat Clear Calc 82.21 Est GFR (MDRD) Af Amer 113 Est GFR (MDRD) Non-Af 93 BUN/Creatinine Ratio 13.9 Glucose 171 H Calcium 8.5 Total Bilirubin 0.40 AST 21 ALT 24 Alkaline Phosphatase 135 H Total Protein 6.7 Albumin 3.1 L Globulin 3.6 Albumin/Globulin Ratio 0.9 Lipase 371 Radiography Diagnostic Testing: Radiology Impression Abdomen/Pelvis CT 05/21/21 04:33 IMPRESSION: Large diastases of the rectus muscle at the level of the pelvis with herniation of portions of the large bowel small bowel and intraperitoneal fat, as detailed above without evidence of obstruction. Wall thickening of the bladder compatible with cystitis. Percutaneous endogastric tube. No hydronephrosis. No appendicitis. 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 Electronically Signed: Keri Bateman MD at 6:24 EDT Tel , Service support , KUB shows the PEG tube to be in the stomach. As read by me. Treatment and Re-Evaluation Comments:: Emergency department course: Patient had an 18 [place] PEG tube that was sent with him. I attempted to place this back into the tract unsuccessfully. I tried a 20 [place] PEG tube that we had an emergency department without success again. I used a Q-tip to find the tract and was able to place a [address] [place] [address] shows that the catheter is in the stomach. The patient was itching at his chin when he returned from CT. He was given Benadryl and Solu-Medrol IV. He is resting comfortably. The patient was discussed with Dr. Rice. Further attempts were made at placing the 20 [place] PEG tube with success. X-ray following this shows that it is in the stomach. Treatment plan: Patient will be discharged instructions to follow-up with Dr. Duncan as needed. Return to the emergency department for any worsening symptoms. Disposition: To home in improved and stable condition. Discharge Plan Triage Chief Complaint: Abd Pain ED Provider: Chris Wilkinson Dx/Rx/DC Orders Clinical Impression: PEG (percutaneous endoscopic gastrostomy) adjustment/replacement/removal Instructions: ED Feeding Tube Replacement Prescriptions: No Action gabapentin [Neurontin] 250 MG/5 ML Ml 300 mg G-tube TIDCM RF: 0 gemfibrozil 600 MG tablet 600 mg G-tube BIDAC RF: 0 clopidogrel 75 MG tablet 75 mg G-tube DAILY RF: 0 citalopram 20 MG tablet 10 mg G-tube QODAY RF: 0 aspirin 81 MG Tab.Chew 81 mg G-tube DAILY@0800 RF: 0 atorvastatin 80 MG tablet 80 mg G-tube QHS RF: 0 ezetimibe 10 MG tablet 10 mg GT DAILY RF: 0 levetiracetam 750 MG tablet 750 mg GT BID RF: 0 insulin lispro 100 UNIT/ML cartridge 12 unit SC TIDCM RF: 0 insulin glargine 100 UNITS/ML insulin pen 20 units SC QHS RF: 0 insulin lispro 100 UNIT/ML cartridge See Protocol unit SC TIDCM RF: 0 Acetaminophen 500 MG tablet 1,000 mg G-tube TID RF: 0 cilostazol 100 MG tablet 100 mg GT BID RF: 0 levetiracetam 500 MG tablet 500 mg GT DAILY@1200 RF: 0 alum-mag hydroxide-simeth 355 ML suspension 10 ml GT TID RF: 0 acetaminophen 325 MG tablet 650 mg PO Q4H PRN PRN (Reason: Pain Score 1-10/Temp > 100.7 F) RF: 0 albuterol sulfate 2.5 MG/3 ML solution for nebulization 2.5 mg INHALATION Q2H PRN PRN (Reason: Shortness of Breath/Wheezing) RF: 0 guaifenesin 10 ML liquid 20 ml PO Q4H PRN PRN (Reason: COUGH) RF: 0 lactose-reduced food with fibr 1,000 ML bottle 270 ml GT 5X/DAY RF: 0 Primary Care Provider: Marcin Joseph Referrals: Humza Duncan MD [STAFF PHYSICIAN] - As Needed Marcin Joseph MD [Primary Care Provider] -
--- NOTE | 2020-09-28 06:47 | RAD_ITS ---
STUDY: X-RAY - ABDOMEN/PELVIS REASON FOR EXAM: Male, 70 years old. PEG placement TECHNIQUE: Single AP view of the abdomen COMPARISON: July 01, 2019, CT abdomen and pelvis September 28, 2020 FINDINGS: Normal visualized lung bases. Postoperative changes in the mid abdomen. A percutaneous endogastric tube. Contrast is present in the stomach. There is an unremarkable bowel gas pattern. There is no demonstrated free abdominal air. The liver spleen and kidneys are obscured. Postoperative changes in the left of midline abdomen at the level of L3. Normal visualized osseous structures. RAD/Abdomen Single View IMPRESSION: There is a percutaneous endogastric tube. There is a small amount of contrast within the stomach. Could consider follow-up study to evaluate the flow of the contrast. Electronically Signed: Keri Bateman MD at 7:33 EDT Tel , Service support ,
[2020-09-28 07:33] VITALS: BP 131/74; PULSE 81; RESP 20; O2SAT 97
--- NOTE | 2020-09-28 07:35 | ED.RN ---
REPORT CALLED TO YANNICK
== END 2020-09-28 07:51 | disposition home or self-care (01) ==
PROVIDERS: Emergency Provider Emergency Medicine; PCP Family Medicine
DX: R10.9 Unspecified abdominal pain (principal); Z43.1 Encounter for attention to gastrostomy; I69.320 Aphasia following cerebral infarction; E11.51 Type 2 diabetes mellitus with diabetic peripheral angiopathy without gangrene; I10 Essential (primary) hypertension; R13.10 Dysphagia, unspecified; G47.30 Sleep apnea, unspecified; F32.9 Major depressive disorder, single episode, unspecified; F41.9 Anxiety disorder, unspecified; Z79.02 Long term (current) use of antithrombotics/antiplatelets; Z79.82 Long term (current) use of aspirin; Z79.4 Long term (current) use of insulin; Z79.899 Other long term (current) drug therapy
CPT/HCPCS: 74018; 74177; 80053; 83690; 85025; 96374; 96375; 99285; Q9967; A4216

== ENCOUNTER 2021-04-25 14:53 | Inpatient (IN) | payer MEDICARE, MEDICAID, SELFPAY ==
[2021-04-25] VITALS (18 sets, daily range): BP systolic 80–134; BP diastolic 47–91; PULSE 82–135; RESP 16–43; TEMP 36.6–38.9; O2SAT 89–96; BMI 39.9; BMI 43.1
--- NOTE | 2021-04-25 15:24 | EKG12_ITS ---
Test Reason : CP Blood Pressure : / mmHG Vent. Rate : 103 BPM Atrial Rate : 103 BPM P-R Int : 184 ms QRS Dur : 068 ms QT Int : 344 ms P-R-T Axes : 061 047 041 degrees QTc Int : 450 ms Sinus tachycardia Occasional Premature Ectopic Complex Nonspecific ST-Segment Abnormality Confirmed by ARIANNA MILLAN, BERTHA ([id number]), editor publications SIRENA NANCE ([id number]) on 04/26/2021 12:34:01 PM Referred By: Confirmed By:BERTHA KELLER MD
--- NOTE | 2021-04-25 15:25 | EX.ED.DYSGE1 ---
HPI <Dr. Sherry Hagen MD - Last Filed: 04/25/21 18:47> History of Present Illness Informant: EMS Narrative Narrative: Patient transferred from [facility] by EMS secondary to reported chest pain and fever. Patient has aphasia from a prior stroke and cannot provide history. Nurse tells me that EMS reported patient had a fever today and within the jail to get out of him was that his chest hurt. When I evaluated him I asked him to nod his head yes or no to answer questions but hip trying to talk and was unintelligible. PFSH <Dr. Sherry Hagen MD - Last Filed: 04/25/21 18:47> [facility] Medical History Anxiety Depression Diabetes Dysphagia Hypertension Peripheral vascular disease Sleep apnea Stroke/cerebrovascular accident Home Medications gabapentin [Neurontin] 300 mg G-TUBE TIDCM 05/11/17 [History Last Taken 04/25/21] gemfibrozil 600 mg G-TUBE BIDAC 05/11/17 [History Last Taken 04/25/21] clopidogrel 75 mg G-TUBE DAILY 08/16/17 [History Last Taken 04/25/21] atorvastatin 80 mg G-TUBE QHS 10/07/17 [History Last Taken 04/24/21] ezetimibe 10 mg GT QHS 01/14/19 [History Last Taken 04/24/21] acetaminophen 1,000 mg FEEDING TUBE Q8H #0 tablet 03/15/20 [History Last Taken 04/25/21] cilostazol 100 mg GT BID 03/15/20 [History Last Taken 04/25/21] insulin glargine [Lantus Solostar U-100 Insulin] 20 units SC QHS 03/15/20 [History Last Taken 04/24/21] insulin lispro 12 unit SC TIDCM 03/15/20 [History Last Taken 04/25/21] insulin lispro See Protocol SC TIDCM 03/15/20 [History Last Taken 04/24/21] levetiracetam 500 mg GT DAILY@1200 03/15/20 [History Last Taken 04/25/21] levetiracetam 750 mg GT BID 03/15/20 [History Last Taken 04/25/21] alum-mag hydroxide-simeth [Tari-Lanta] 5 ml FEEDING TUBE TID 04/25/21 [History Last Taken 04/25/21] aspirin 81 mg FEEDING TUBE DAILY 04/25/21 [History Last Taken 04/25/21] citalopram 10 mg FEEDING TUBE DAILY 04/25/21 [History Last Taken 04/25/21] losartan 50 mg FEEDING TUBE DAILY 04/25/21 [History Last Taken 04/25/21] Allergy/AdvReac Type Severity Reaction Status Date / Time No Known Allergies Allergy Verified 04/25/21 14:55 Social History Smoking Status: Never smoker ROS <Dr. Sherry Hagen MD - Last Filed: 04/25/21 18:47> ROS ED Review of Systems ROS Unobtainable: due to mental status EXAM <Dr. Sherry Hagen MD - Last Filed: 04/25/21 18:47> Physical Exam Const Vital Signs: 04/25/21 14:55 04/25/21 15:00 04/25/21 15:58 Temperature 101.8 F H 101.8 F H Temperature Source Axillary Axillary Pulse Rate 107 H 104 H 135 H Respiratory Rate 22 H 22 H 43 H Respiratory Effort Normal Non-Labored Respiratory Pattern Normal Blood Pressure 133/84 H 114/72 Blood Pressure Mean 100 86 Pulse Ox 95 94 96 Oxygen Delivery Method Room Air Room Air Room Air Oxygen Flow Rate (L/min) 04/25/21 16:05 04/25/21 16:30 04/25/21 16:31 Temperature 101.1 F H Temperature Source Temporal Pulse Rate 125 H 109 H 109 H Respiratory Rate 30 H 30 H 32 H Respiratory Effort Respiratory Pattern Blood Pressure 134/91 H 109/74 Blood Pressure Mean 105 85 Pulse Ox 93 89 91 Oxygen Delivery Method Room Air Room Air Nasal Cannula Oxygen Flow Rate (L/min) 2 04/25/21 16:43 04/25/21 17:00 04/25/21 17:08 Temperature 98.4 F Temperature Source Temporal Pulse Rate 105 H 105 H Respiratory Rate 26 H 26 H Respiratory Effort Respiratory Pattern Blood Pressure 92/61 92/61 Blood Pressure Mean 71 71 Pulse Ox 89 94 93 Oxygen Delivery Method Nasal Cannula Nasal Cannula Nasal Cannula Oxygen Flow Rate (L/min) 2 04/25/21 18:01 04/25/21 18:46 04/25/21 19:00 Temperature 102.1 F H 100.6 F H 102 F H Temperature Source Temporal Temporal Temporal Pulse Rate 96 97 96 Respiratory Rate 25 H 28 H 22 H Respiratory Effort Respiratory Pattern Blood Pressure 91/54 L 98/54 L 95/63 Blood Pressure Mean 66 68 73 Pulse Ox 92 94 91 Oxygen Delivery Method Nasal Cannula Nasal Cannula Nasal Cannula Oxygen Flow Rate (L/min) 3 3 3 04/25/21 19:16 Temperature 102 F H Temperature Source Temporal Pulse Rate 97 Respiratory Rate 22 H Respiratory Effort Respiratory Pattern Blood Pressure 95/63 Blood Pressure Mean 73 Pulse Ox 91 Oxygen Delivery Method Nasal Cannula Oxygen Flow Rate (L/min) 3 Positive obese Nutritional Appearance: obese HEENT Reports moist mucous membranes Eyes PERRL and EOMs intact bilaterally Neck supple Chest Wall inspection of chest normal and palpation of chest normal Resp normal respiratory effort and clear to auscultation bilaterally Cardio Rate: tachycardic GI non-tender Auscultation: hypoactive bowel sounds Palpation: soft Extremity normal to inspection Neuro Neuro Narrative: Opens eyes to voice. Skin no rashes or lesions noted <Rosalia Byrd, [employer] - Last Filed: 04/26/21 11:07> Physical Exam Const Vital Signs: 04/25/21 14:55 04/25/21 15:00 04/25/21 15:58 Temperature 101.8 F H 101.8 F H Temperature Source Axillary Axillary Pulse Rate 107 H 104 H 135 H Respiratory Rate 22 H 22 H 43 H Respiratory Effort Normal Non-Labored Respiratory Pattern Normal Blood Pressure 133/84 H 114/72 Blood Pressure Mean 100 86 Pulse Ox 95 94 96 Oxygen Delivery Method Room Air Room Air Room Air Oxygen Flow Rate (L/min) 04/25/21 16:05 04/25/21 16:30 04/25/21 16:31 Temperature 101.1 F H Temperature Source Temporal Pulse Rate 125 H 109 H 109 H Respiratory Rate 30 H 30 H 32 H Respiratory Effort Respiratory Pattern Blood Pressure 134/91 H 109/74 Blood Pressure Mean 105 85 Pulse Ox 93 89 91 Oxygen Delivery Method Room Air Room Air Nasal Cannula Oxygen Flow Rate (L/min) 2 04/25/21 16:43 04/25/21 17:00 04/25/21 17:08 Temperature 98.4 F Temperature Source Temporal Pulse Rate 105 H 105 H Respiratory Rate 26 H 26 H Respiratory Effort Respiratory Pattern Blood Pressure 92/61 92/61 Blood Pressure Mean 71 71 Pulse Ox 89 94 93 Oxygen Delivery Method Nasal Cannula Nasal Cannula Nasal Cannula Oxygen Flow Rate (L/min) 2 04/25/21 18:01 04/25/21 18:46 04/25/21 19:00 Temperature 102.1 F H 100.6 F H 102 F H Temperature Source Temporal Temporal Temporal Pulse Rate 96 97 96 Respiratory Rate 25 H 28 H 22 H Respiratory Effort Respiratory Pattern Blood Pressure 91/54 L 98/54 L 95/63 Blood Pressure Mean 66 68 73 Pulse Ox 92 94 91 Oxygen Delivery Method Nasal Cannula Nasal Cannula Nasal Cannula Oxygen Flow Rate (L/min) 3 3 3 04/25/21 19:16 Temperature 102 F H Temperature Source Temporal Pulse Rate 97 Respiratory Rate 22 H Respiratory Effort Respiratory Pattern Blood Pressure 95/63 Blood Pressure Mean 73 Pulse Ox 91 Oxygen Delivery Method Nasal Cannula Oxygen Flow Rate (L/min) 3 MDM <Dr. Sherry Hagen MD - Last Filed: 04/25/21 18:47> [facility] MDM Narrative Medical decision making narrative: Patient was given Tylenol through his PEG tube for fever. Lab work, chest x-ray, urinalysis ordered. Cultures obtained. Covid and influenza swabs ordered. Lab Data Attestation: I reviewed the patient's lab results. Labs: Laboratory Results - last 24 hr 04/25/21 04/25/21 04/25/21 15:05 15:05 15:05 WBC 12.3 H RBC 4.96 Hgb 15.2 Hct 47.3 MCV 95.4 H MCH 30.6 MCHC 32.1 RDW Std Deviation 46.6 H RDW Coeff of Corinne 13.2 Plt Count 212 MPV 9.7 Immature Gran % (Auto) 0.300 Neut % (Auto) 86.2 H Lymph % (Auto) 6.6 L [place] % (Auto) 5.3 Eos % (Auto) 1.0 Baso % (Auto) 0.6 Absolute Neuts (auto) 10.6 H Absolute Lymphs (auto) 0.82 L Nucleated RBC % 0 Sodium 143 Potassium 4.5 Chloride 106 Carbon Dioxide 30.0 Anion Gap 7 BUN 13 Creatinine 1.03 Estim Creat Clear Calc 70.87 Est GFR (MDRD) Af Amer 92 Est GFR (MDRD) Non-Af 76 BUN/Creatinine Ratio 12.6 Glucose 133 H Lactic Acid 2.9 H* Calcium 8.8 Total Bilirubin 0.50 Direct Bilirubin 0.14 AST 15 ALT 32 Alkaline Phosphatase 123 H Troponin I High Sens 9 Total Protein 7.3 Albumin 3.5 Globulin 3.8 Urine Color Urine Clarity Urine pH Ur Specific [place] Urine Protein Urine Glucose (UA) Urine Ketones Urine Occult Blood Urine Nitrite Urine Bilirubin Urine Urobilinogen Ur Leukocyte Esterase Urine RBC Urine WBC Ur Squamous Epith Cells Triple Phos Crystals Urine Bacteria Urine Mucus 04/25/21 16:13 WBC RBC Hgb Hct MCV MCH MCHC RDW Std Deviation RDW Coeff of Corinne Plt Count MPV Immature Gran % (Auto) Neut % (Auto) Lymph % (Auto) [place] % (Auto) Eos % (Auto) Baso % (Auto) Absolute Neuts (auto) Absolute Lymphs (auto) Nucleated RBC % Sodium Potassium Chloride Carbon Dioxide Anion Gap BUN Creatinine Estim Creat Clear Calc Est GFR (MDRD) Af Amer Est GFR (MDRD) Non-Af BUN/Creatinine Ratio Glucose Lactic Acid Calcium Total Bilirubin Direct Bilirubin AST ALT Alkaline Phosphatase Troponin I High Sens Total Protein Albumin Globulin Urine Color Yellow Urine Clarity Sl. Cloudy Urine pH 8.0 Ur Specific [place] 1.010 Urine Protein 15 H Urine Glucose (UA) Normal Urine Ketones Negative Urine Occult Blood 150 H Urine Nitrite Positive H Urine Bilirubin Negative Urine Urobilinogen Normal Ur Leukocyte Esterase 500 H Urine RBC 0 SEEN Urine WBC 5-10 SEEN Ur Squamous Epith Cells 0-5 SEEN Triple Phos Crystals RARE Urine Bacteria 2+ Urine Mucus 0 SEEN Rapid Covid: Negative Influenza: Positive for influenza A Radiography Chest X-Ray - ED: 1 View, Read by ED Physician and Chronic Changes Diagnostic Testing: Clinical Impression(s) from Imaging Studies Chest X-Ray 04/25/21 16:23 IMPRESSION: Left lower lobe linear scarring or atelectasis. at 1642 Reported and signed by: Sidney Crespo MD Electronically Signed: Sidney Crespo MD at 16:41 EST Tel , Service support , Chest CTA 04/25/21 16:55 IMPRESSION: Normal CTA chest examination, without a demonstrated pulmonary embolism or arterial dissection. Electronically Signed: Efrain Arora MD at 18:05 EST Tel , Service support , EKG Initial EKG: Attestation: I personally reviewed and interpreted this EKG as follows: Interpretation: Sinus Tachycardia (Sinus tach at 103. No acute ischemia.) Treatment and Re-Evaluation Comments:: At the time my initial exam patient was on room air. Nursing staff did note that his oxygen saturation dropped when he was sleeping. He is currently on 4 L nasal cannula and satting 93%. Heart rate is improved into the 90s. Blood pressure did drop into the 80s systolic and is responding to fluids. Pressure is currently 94/59. Lab work reveals elevated white count at 12.3 with left shift. Chemistry studies unremarkable. Lactic acid elevated at 2.9. Urinalysis does reveal infection with 2+ bacteria, 500 leukocyte esterase, positive nitrates. Urine culture added and patient given dose of IV Rocephin. Patient's repeat temperature was elevated to 102 and he is given ibuprofen through his PEG tube as well. Due to the patient's new oxygen requirement he was sent for CTA of the chest. This reveals no evidence of infiltrate or PE. I discussed the patient's care with brother at bedside who is power of medical coding technician. At this time patient remains full code, but brother does state that they have been having discussions on whether they would want to continue this in the future. I will speak with hospitalist regarding admission. <Rosalia Byrd, DEIMAN-C - Last Filed: 04/26/21 11:07> [facility] Lab Data Labs: Laboratory Results - last 24 hr 04/25/21 04/25/21 04/25/21 15:05 15:05 15:05 WBC 12.3 H RBC 4.96 Hgb 15.2 Hct 47.3 MCV 95.4 H MCH 30.6 MCHC 32.1 RDW Std Deviation 46.6 H RDW Coeff of Corinne 13.2 Plt Count 212 MPV 9.7 Immature Gran % (Auto) 0.300 Neut % (Auto) 86.2 H Lymph % (Auto) 6.6 L [place] % (Auto) 5.3 Eos % (Auto) 1.0 Baso % (Auto) 0.6 Absolute Neuts (auto) 10.6 H Absolute Lymphs (auto) 0.82 L Nucleated RBC % 0 Sodium 143 Potassium 4.5 Chloride 106 Carbon Dioxide 30.0 Anion Gap 7 BUN 13 Creatinine 1.03 Estim Creat Clear Calc 70.87 Est GFR (MDRD) Af Amer 92 Est GFR (MDRD) Non-Af 76 BUN/Creatinine Ratio 12.6 Glucose 133 H Lactic Acid 2.9 H* Calcium 8.8 Total Bilirubin 0.50 Direct Bilirubin 0.14 AST 15 ALT 32 Alkaline Phosphatase 123 H Troponin I High Sens 9 Total Protein 7.3 Albumin 3.5 Globulin 3.8 Urine Color Urine Clarity Urine pH Ur Specific [place] Urine Protein Urine Glucose (UA) Urine Ketones Urine Occult Blood Urine Nitrite Urine Bilirubin Urine Urobilinogen Ur Leukocyte Esterase Urine RBC Urine WBC Ur Squamous Epith Cells Triple Phos Crystals Urine Bacteria Urine Mucus 04/25/21 16:13 WBC RBC Hgb Hct MCV MCH MCHC RDW Std Deviation RDW Coeff of Corinne Plt Count MPV Immature Gran % (Auto) Neut % (Auto) Lymph % (Auto) [place] % (Auto) Eos % (Auto) Baso % (Auto) Absolute Neuts (auto) Absolute Lymphs (auto) Nucleated RBC % Sodium Potassium Chloride Carbon Dioxide Anion Gap BUN Creatinine Estim Creat Clear Calc Est GFR (MDRD) Af Amer Est GFR (MDRD) Non-Af BUN/Creatinine Ratio Glucose Lactic Acid Calcium Total Bilirubin Direct Bilirubin AST ALT Alkaline Phosphatase Troponin I High Sens Total Protein Albumin Globulin Urine Color Yellow Urine Clarity Sl. Cloudy Urine pH 8.0 Ur Specific [place] 1.010 Urine Protein 15 H Urine Glucose (UA) Normal Urine Ketones Negative Urine Occult Blood 150 H Urine Nitrite Positive H Urine Bilirubin Negative Urine Urobilinogen Normal Ur Leukocyte Esterase 500 H Urine RBC 0 SEEN Urine WBC 5-10 SEEN Ur Squamous Epith Cells 0-5 SEEN Triple Phos Crystals RARE Urine Bacteria 2+ Urine Mucus 0 SEEN Radiography Diagnostic Testing: Clinical Impression(s) from Imaging Studies Chest X-Ray 04/25/21 16:23 IMPRESSION: Left lower lobe linear scarring or atelectasis. at 1642 Reported and signed by: Sidney Crespo MD Electronically Signed: Sidney Crespo MD at 16:41 EST Tel , Service support , Chest CTA 04/25/21 16:55 IMPRESSION: Normal CTA chest examination, without a demonstrated pulmonary embolism or arterial dissection. Electronically Signed: Efrain Arora MD at 18:05 EST Tel , Service support , Discharge Plan Dx/Rx/DC Orders Clinical Impression: UTI (urinary tract infection), Severe sepsis Disposition Disposition: Acute Care Hospital [facility] Discharge Date/Time: 04/25/21 20:16 <THUAN Turcios - Last Filed: 04/26/21 11:07> Addendum Details:: Note was reviewed and no alterations were made.
[2021-04-25 15:38] LABS: Absolute Lymphocyte Count 0.82 X10^3/uL (0.83-4.51); Absolute Neutrophil Count 10.6 X10^3/uL (2.0-7.7); Basophil# 0.07 X10^3/uL; Basophil% 0.6 % (0-1); Eosinophil# 0.12 X10^3/uL; Hematocrit 47.3 % (40-54); Hemoglobin 15.2 g/dL (13.0-16.5); Lymphocyte # 0.82 X10^3/ul (0.83-4.51); Lymphocyte % 6.6 % (19-41); Mean Corp Hgb Conc 32.1 g/dL (32-36); Mean Corpuscular Hgb 30.6 pg (27.0-32.0); Mean Corpuscular Volume 95.4 fL (80-94); Mean Platelet Vol. 9.7 fl (6.2-12.0); Monocyte# 0.65 X10^3/uL; Monocyte% 5.3 % (0-10); NRBC Flagged by Analyzer 0 % (0-5); Neutrophil # 10.64 X10^3/uL (2.7-7.7); Neutrophil % 86.2 % (47-70); Platelet Count 212 K/mm3 (150-450); RBC Distribution Width CV 13.2 % (11.6-14.6); RBC Distribution Width SD 46.6 fl (35.1-43.9); Red Blood Count 4.96 M/mm3 (4.6-6.2); White Blood Count 12.3 K/mm3 (4.4-11.0)
[2021-04-25] MEDS: Acetaminophen 650 MG/20 ML UDC 1000 MG GT (16:02)
[2021-04-25 16:04] LABS: AST(SGOT) 15 U/L (15-37); Alanine Aminotransfer ALT/SGPT 32 U/L (16-61); Albumin, Serum 3.5 g/dL (3.2-5.0); Alkaline Phosphatase 123 U/L (45-117); Anion Gap 7 (5-15); BUN 13 mg/dL (7-18); BUN/Creat Ratio 12.6 RATIO (10-20); Bilirubin, Direct 0.14 mg/dL (0.00-0.30); Calcium,Total 8.8 mg/dL (8.5-10.1); Chloride 106 mmol/L (98-107); Creatinine, Serum 1.03 mg/dL (0.70-1.30); EST Glomerular Filtration Rate 76 mL/min (>60); Est Glom Filt Rate - Afr Amer 92 mL/min (>60); Estimated Creatinine Clearance 70.87 ml/min; Globulin 3.8 g/dL (2.2-4.2); Glucose 133 mg/dL (74-106); Potassium 4.5 mmol/L (3.5-5.1); Protein, Total 7.3 g/dL (6.4-8.2); Sodium Level 143 mmol/L (136-145); Troponin-I HS 9 pg/mL (3.0-78.0)
[2021-04-25 16:15] LABS: Lactic Acid 2.9 mmol/L (0.4-1.9)
[2021-04-25 16:19] LABS: Mucous, Urine 0 SEEN /hpf (<or=2+); Red Blood Cells-Urine 0 SEEN /hpf (0-5)
[2021-04-25 16:20] LABS: Color, Urine Yellow (Yellow); Glucose, Dipstick Normal (Normal); Ketone-Dipstick Negative (Negative); Leukocyte Esterase-Dipstick 500 /ul (Negative); Nitrite-Dipstick Positive (Negative); Occult Blood-Urine 150 /ul (Negative); Protein-Dipstick 15 mg/dl (Negative); Urine Bilirubin Dipstick Negative (Negative); Urine Clarity Sl. Cloudy (Clear); Urine Urobilinogen Normal (Normal)
--- NOTE | 2021-04-25 16:23 | RAD_ITS ---
History: Chest pain EXAMINATION/TECHNIQUE: XR Chest 1 View: Portable COMPARISON: March 15, 2020 FINDINGS: LINES/DEVICES: None. LUNGS: Residual linear atelectasis or scarring noted at the left lung base. No pneumothorax. MEDIASTINUM AND CARDIOVASCULAR STRUCTURES: Cardiac silhouette not enlarged. Central airways and mediastinal contour are unremarkable. BONES AND SOFT TISSUES: Unremarkable. RAD/Chest 1 View (Portable) IMPRESSION: Left lower lobe linear scarring or atelectasis. at 1642 Reported and signed by: Sidney Crespo MD Electronically Signed: Sidney Crespo MD at 16:41 EST Tel , Service support ,
[2021-04-25 16:27] LABS: Bacteria 2+ /hpf (None Seen); White Blood Cells 5-10 SEEN /hpf (0-5)
[2021-04-25 16:28] LABS: Squamous Epithelial Cells - UA 0-5 SEEN /hpf (0-5); Triple Phosphate Crystals Ur RARE /hpf (<or=1+)
--- NOTE | 2021-04-25 16:55 | CT_ITS ---
STUDY: CTA CHEST REASON FOR EXAM: Male, 70 years old. cp, hypoxia RADIATION DOSAGE (If Supplied By Facility): CTDIvol = ( 12.65 ) mGy, DLP = ( 502.14 ) mGycm TECHNIQUE: The examination was performed with the intravenous administration of IV 100mL [id number]-370. Post-processing of the angiographic images was performed, with multiplanar reformation and 3D reconstruction. Individualized dose optimization techniques were used for this CT. COMPARISON: Chest x-ray earlier today FINDINGS: Normal enhancement of the main pulmonary artery and right and left pulmonary arteries. Normal enhancement of the bilateral peripheral pulmonary arteries. There is no demonstrated pulmonary embolism. Normal thoracic aorta and visualized great vessels. There is no demonstrated aortic dissection. Normal heart and pericardium. Normal mediastinum. Normal hilar regions. Normal visualized trachea and bronchi. The lungs are well expanded. Mild emphysema. Normal pleura. Normal chest wall structures. Mild dextroscoliosis of the thoracic spine with degenerative disc disease. Normal visualized upper abdomen. CT/CTA Chest W/WO Contrast IMPRESSION: Normal CTA chest examination, without a demonstrated pulmonary embolism or arterial dissection. Electronically Signed: Efrain Arora MD at 18:05 EST Tel , Service support ,
[2021-04-25] MEDS: 0.9% Normal Saline 1,000 ML 999 ML IV ×3 (17:02→18:40)
[2021-04-25] MEDS: Ceftriaxone 1 GM/50 ML BAG IV (17:40)
[2021-04-25] MEDS: Ibuprofen 100 MG/5 ML UDC 800 MG PO (17:56)
--- NOTE | 2021-04-25 19:29 | HP.PCM.HOS_ITS ---
HPI - General General Date of Service: 04/25/21 Chief Complaint: Chest pain HPI Narrative JUANY MCDOWELL, is a 70 M who presents to the emergency [place] at [facility] [place] after being transported from a local extended care facility at which she is a chronic resident due to complaints of chest pain, information was difficult because the patient was aphasic and did not answer questions in order to get a detailed history. History per squad is that the patient possibly had a seizure today, he is on seizure medications. Work-up in the emergency room i ncluded labs which showed an elevated white blood cell count at 12.3, chemistry profile, chemistry panel was remarkable for a glucose of 133, lactic acid was elevated at 2.9, urinalysis revealed +2 bacteria and 5-10 WBCs. Patient underwent a CT of his chest which showed no evidence of infiltrate or pulmonary embolism, he was hypotensive in the emergency room and was given fluids. EKG showed a sinus tachycardia without evidence of acute ischemia. It was felt that the patient had severe sepsis secondary to acute cystitis, he will be admitted to PCU, he will be given IV fluids and IV antibiotics, discussions were carried out with the patient's brother who is his POA by phone with the emergency room physician, patient is currently a full code but according to the emergency room physician, his brother was contemplating changing his CODE STATUS. FORMERLY [facility], [facility]–1983 Medical History Anxiety Depression Diabetes Dysphagia Hypertension Peripheral vascular disease Sleep apnea Stroke/cerebrovascular accident Home Medications gabapentin [Neurontin] 300 mg G-TUBE TIDCM 05/11/17 [History Last Taken 04/25/21] gemfibrozil 600 mg G-TUBE BIDAC 05/11/17 [History Last Taken 04/25/21] clopidogrel 75 mg G-TUBE DAILY 08/16/17 [History Last Taken 04/25/21] atorvastatin 80 mg G-TUBE QHS 10/07/17 [History Last Taken 04/24/21] ezetimibe 10 mg GT QHS 01/14/19 [History Last Taken 04/24/21] acetaminophen 1,000 mg FEEDING TUBE Q8H #0 tablet 03/15/20 [History Last Taken 04/25/21] cilostazol 100 mg GT BID 11/05/20 [History Last Taken 04/25/21] insulin glargine [Lantus Solostar U-100 Insulin] 20 units SC QHS 03/15/20 [History Last Taken 04/24/21] insulin lispro 12 unit SC TIDCM 03/15/20 [History Last Taken 04/25/21] insulin lispro See Protocol SC TIDCM 03/15/20 [History Last Taken 04/24/21] levetiracetam 500 mg GT DAILY@1200 03/15/20 [History Last Taken 04/25/21] levetiracetam 750 mg GT BID 03/15/20 [History Last Taken 04/25/21] alum-mag hydroxide-simeth [Tari-Lanta] 5 ml FEEDING TUBE TID 04/25/21 [History Last Taken 04/25/21] aspirin 81 mg FEEDING TUBE DAILY 04/25/21 [History Last Taken 04/25/21] citalopram 10 mg FEEDING TUBE DAILY 04/25/21 [History Last Taken 04/25/21] losartan 50 mg FEEDING TUBE DAILY 04/25/21 [History Last Taken 04/25/21] Allergy/AdvReac Type Severity Reaction Status Date / Time No Known Allergies Allergy Verified 04/25/21 14:55 Social History Smoking Status: Never smoker ROS ROS Narrative Unable to obtain review of systems from the patient due to aphasia from previous stroke, disregard the narrative below regarding review of systems. Constitutional Constitutional: Denies anorexia, change in weight, fever(s), night sweats or weakness Eyes Eyes: Denies blurry vision, change in vision, discharge from eye(s) or eye pain Cardiovascular Cardiovascular: Denies chest pain, claudication, edema or palpitations Respiratory/Chest Respiratory/Chest: Denies cough, hemoptysis, shortness of breath at rest or shortness of breath with exertion Gastrointestinal Gastrointestinal: Denies abdominal pain, constipation, diarrhea, hematemesis, hematochezia, melena, nausea or vomiting Genitourinary Genitourinary: Denies dysuria, hematuria, urinary frequency, urinary hesitancy, urinary incontinence or urinary urgency Musculoskeletal Musculoskeletal: Denies back pain, joint pain, joint stiffness, joint swelling, myalgias or neck pain Neurologic Neurologic: Denies abnormal gait, abnormal speech, dizziness, focal weakness, headache(s), loss of vision, numbness, other visual disturbances, paresthesias, syncope or tingling Psychiatric Psychiatric: Denies anxiety, cognitive impairment, depression, irritability, mood swings or suicidal ideation Endocrine Endocrinology: Denies change in body appearance, cold intolerance, excessive sweating, heat intolerance, polydipsia or polyuria Hematologic/Lymphatic Hematologic/Lymphatic: Denies none, anemia, easy bleeding, easy bruising or lymphadenopathy Allergic/Immunologic Allergic/Immunologic: Denies rhinitis, urticaria, eczemia or asthma Vital Signs Vital Signs Vital Signs: 04/25/21 14:55 04/25/21 15:00 04/25/21 15:58 Temperature 101.8 F H 101.8 F H Temperature Source Axillary Axillary Pulse Rate 107 H 104 H 135 H Respiratory Rate 22 H 22 H 43 H Respiratory Effort Normal Non-Labored Respiratory Pattern Normal Blood Pressure 133/84 H 114/72 Blood Pressure Mean 100 86 Pulse Ox 95 94 96 Oxygen Delivery Method Room Air Room Air Room Air Oxygen Flow Rate (L/min) 04/25/21 16:05 04/25/21 16:30 04/25/21 16:31 Temperature 101.1 F H Temperature Source Temporal Pulse Rate 125 H 109 H 109 H Respiratory Rate 30 H 30 H 32 H Respiratory Effort Respiratory Pattern Blood Pressure 134/91 H 109/74 Blood Pressure Mean 105 85 Pulse Ox 93 89 91 Oxygen Delivery Method Room Air Room Air Nasal Cannula Oxygen Flow Rate (L/min) 2 04/25/21 16:43 04/25/21 17:00 04/25/21 17:08 Temperature 98.4 F Temperature Source Temporal Pulse Rate 105 H 105 H Respiratory Rate 26 H 26 H Respiratory Effort Respiratory Pattern Blood Pressure 92/61 92/61 Blood Pressure Mean 71 71 Pulse Ox 89 94 93 Oxygen Delivery Method Nasal Cannula Nasal Cannula Nasal Cannula Oxygen Flow Rate (L/min) 2 04/25/21 18:01 04/25/21 18:46 04/25/21 19:00 Temperature 102.1 F H 100.6 F H 102 F H Temperature Source Temporal Temporal Temporal Pulse Rate 96 97 96 Respiratory Rate 25 H 28 H 22 H Respiratory Effort Respiratory Pattern Blood Pressure 91/54 L 98/54 L 95/63 Blood Pressure Mean 66 68 73 Pulse Ox 92 94 91 Oxygen Delivery Method Nasal Cannula Nasal Cannula Nasal Cannula Oxygen Flow Rate (L/min) 3 3 3 04/25/21 19:16 Temperature 102 F H Temperature Source Temporal Pulse Rate 97 Respiratory Rate 22 H Respiratory Effort Respiratory Pattern Blood Pressure 95/63 Blood Pressure Mean 73 Pulse Ox 91 Oxygen Delivery Method Nasal Cannula Oxygen Flow Rate (L/min) 3 Weight Weight: 126.3 kg Body Mass Index (BMI) 39.9 Physical Exam Const no apparent distress Constitutional Narrative: Patient is lethargic, he responds to painful stimuli, he is aphasic, he appears older than his stated age General Appearance: well kempt and well developed Orientation / Consciousness: awake, oriented to person, oriented to place and oriented to time HEENT normocephalic, head/scalp atraumatic and moist oral mucous membranes Eyes conjunctivae normal Neck nuchal rigidity, supple, no JVD, thyroid normal and no carotid bruits General: trachea midline Resp normal respiratory effort, no retractions, no use of accessory muscles and clear to auscultation bilaterally Auscultation: Negative for rales, rhonchi or wheezes Cardio regular rate, regular rhythm, S1 normal heart sound, S2 normal heart sound, no murmurs, no rub and no gallops GI normal to inspection, nondistended, normoactive bowel sounds, soft to palpation, non-tender and non-distended GI Narrative: Patient is morbidly obese, there is a PEG tube present in the mid upper abdomen area Extremity normal to inspection and no clubbing, cyanosis or edema Extremity Narrative: Patient has right-sided hemiplegia Skin no rashes or lesions noted General Skin Exam: no breakdown Neuro CN's II-XII intact bilaterally and no sensory deficits noted Neuro Narrative: Patient is aphasic, he has right-sided hemiplegia, he is able to say yes occasionally to questions Psych thought process normal Psych Narrative: Patient is lethargic, he responds to painful stimuli Results Lab / Micro Data Result Diagrams: 04/25/21 15:05 04/25/21 15:05 Labs: Laboratory Results - last 24 hr 04/25/21 15:05: WBC 12.3 H, RBC 4.96, Hgb 15.2, Hct 47.3, MCV 95.4 H, MCH 30.6, MCHC 32.1, RDW Std Deviation 46.6 H, RDW Coeff of Corinne 13.2, Plt Count 212, MPV 9.7, Immature Gran % (Auto) 0.300, Neut % (Auto) 86.2 H, Lymph % (Auto) 6.6 L, [place] % (Auto) 5.3, Eos % (Auto) 1.0, Baso % (Auto) 0.6, Absolute Neuts (auto) 10.6 H, Absolute Lymphs (auto) 0.82 L, Nucleated RBC % 0 04/25/21 15:05: Sodium 143, Potassium 4.5, Chloride 106, Carbon Dioxide 30.0, Anion Gap 7, BUN 13, Creatinine 1.03, Estim Creat Clear Calc 70.87, Est GFR (MDRD) Af Amer 92, Est GFR (MDRD) Non-Af 76, BUN/Creatinine Ratio 12.6, Glucose 133 H, Calcium 8.8, Total Bilirubin 0.50, Direct Bilirubin 0.14, AST 15, ALT 32, Alkaline Phosphatase 123 H, Troponin I High Sens 9, Total Protein 7.3, Albumin 3.5, Globulin 3.8 04/25/21 15:05: Lactic Acid 2.9 H* 04/25/21 16:13: Urine Color Yellow, Urine Clarity Sl. Cloudy, Urine pH 8.0, Ur Specific [place] 1.010, Urine Protein 15 H, Urine Glucose (UA) Normal, Urine Ketones Negative, Urine Occult Blood 150 H, Urine Nitrite Positive H, Urine Bilirubin Negative, Urine Urobilinogen Normal, Ur Leukocyte Esterase 500 H, Urine RBC 0 SEEN, Urine WBC 5-10 SEEN, Ur Squamous Epith Cells 0-5 SEEN, Triple Phos Crystals RARE, Urine Bacteria 2+, Urine Mucus 0 SEEN Micro: Microbiology 04/25/21 15:35 Mucosa - Nasopharyngeal Influenza Types A,B Direct FA (JAYDA) - Final Influenzae A 04/25/21 15:45 Nasal Secretion SARS-CoV-2 Antigen (Rapid) - Final Radiology Impression Chest X-Ray 04/25/21 16:23 IMPRESSION: Left lower lobe linear scarring or atelectasis. at 1642 Reported and signed by: Sidney Crespo MD Electronically Signed: Sidney Crespo MD at 16:41 EST Tel , Service support , Chest CTA 04/25/21 16:55 IMPRESSION: Normal CTA chest examination, without a demonstrated pulmonary embolism or arterial dissection. Electronically Signed: Efrain Arora MD at 18:05 EST Tel , Service support , Assessment & Plan Assessment/Plan (1) Severe sepsis: PLAN: 1. Severe sepsis-probably secondary to acute cystitis, patient will be admitted to PCU, he will be placed on IV Zosyn, he will be given IV fluids, at this point he is a full code. Patient does not have any evidence of pneumonia at this time. 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 #9 seizure disorder-patient is on Keppra Charges/Coding Visit Charges Inpatient E&M: 94393 Init Hosp L3
[2021-04-25 19:32] LABS: Reflex Lactate? Y
[2021-04-25 20:41] LABS: Lactic Acid 2.2 mmol/L (0.4-1.9)
[2021-04-25] MEDS: 0.9% Normal Saline 1,000 ML 125 ML IV (21:32)
[2021-04-25 21:57] LABS: Troponin-I HS 488 pg/mL (3.0-78.0)
[2021-04-25] MEDS: Piperacil/Tazobactam 3.375 GM/50 ML ML IV (22:50)
[2021-04-25] MEDS: Cilostazol 50 MG Tablet 100 MG GT (22:51)
[2021-04-25] MEDS: levETIRAcetam Oral Solution 500 MG/5 ML 750 MG GT (22:51)
[2021-04-25] MEDS: Ezetimibe 10 MG Tablet GT (22:51)
[2021-04-25] MEDS: Atorvastatin Calcium 80 MG Tablet GT (22:52)
--- NOTE | 2021-04-25 23:37 | PCS.PANDOC ---
PANDEMIC DOCUMENTATION INITIATED: Date: 12/24/2020 Time: 190
[2021-04-25 23:55] LABS: Troponin-I HS 565 pg/mL (3.0-78.0)
[2021-04-26] VITALS (14 sets, daily range): BP systolic 101–141; BP diastolic 58–75; PULSE 68–96; RESP 14–18; TEMP 36.3–36.8; O2SAT 86–100
[2021-04-26 00:21] LABS: Bedside Glucose 161 mg/dL (70-110)
[2021-04-26 03:25] LABS: Absolute Lymphocyte Count 1.44 X10^3/uL (0.83-4.51); Absolute Neutrophil Count 11.1 X10^3/uL (2.0-7.7); Basophil# 0.07 X10^3/uL; Basophil% 0.5 % (0-1); Eosinophil# 0.05 X10^3/uL; Eosinophils% 0.4 % (0-5); Hematocrit 40.9 % (40-54); Lymphocyte # 1.44 X10^3/ul (0.83-4.51); Lymphocyte % 10.6 % (19-41); Mean Corp Hgb Conc 31.8 g/dL (32-36); Mean Corpuscular Hgb 30.9 pg (27.0-32.0); Mean Corpuscular Volume 97.1 fL (80-94); Mean Platelet Vol. 9.6 fl (6.2-12.0); Monocyte# 0.92 X10^3/uL; Monocyte% 6.7 % (0-10); NRBC Flagged by Analyzer 0 % (0-5); Neutrophil % 81.4 % (47-70); Platelet Count 170 K/mm3 (150-450); RBC Distribution Width CV 13.5 % (11.6-14.6); RBC Distribution Width SD 48.3 fl (35.1-43.9); Red Blood Count 4.21 M/mm3 (4.6-6.2); White Blood Count 13.6 K/mm3 (4.4-11.0)
[2021-04-26 03:50] LABS: ALB/GLOB Ratio 0.8 RATIO (0.9-2.4); AST(SGOT) 22 U/L (15-37); Alanine Aminotransfer ALT/SGPT 24 U/L (16-61); Albumin, Serum 2.6 g/dL (3.2-5.0); Alkaline Phosphatase 88 U/L (45-117); Anion Gap 5 (5-15); BUN 12 mg/dL (7-18); BUN/Creat Ratio 13.8 RATIO (10-20); Calcium,Total 7.7 mg/dL (8.5-10.1); Chloride 114 mmol/L (98-107); Creatinine, Serum 0.87 mg/dL (0.70-1.30); EST Glomerular Filtration Rate 92 mL/min (>60); Est Glom Filt Rate - Afr Amer 112 mL/min (>60); Estimated Creatinine Clearance 75.98 ml/min; Globulin 3.3 g/dL (2.2-4.2); Glucose 141 mg/dL (74-106); Potassium 4.2 mmol/L (3.5-5.1); Protein, Total 5.9 g/dL (6.4-8.2); Sodium Level 143 mmol/L (136-145); Troponin-I HS 630 pg/mL (3.0-78.0)
[2021-04-26] MEDS: Menthol/Lanolin/Calamine/Znox 113 GM Tube 1 APPLIC TOPICAL ×3 (04:41→22:09)
[2021-04-26] MEDS: 0.9% Normal Saline 1,000 ML 125 ML IV ×2 (04:42→12:56)
[2021-04-26] MEDS: Piperacil/Tazobactam 3.375 GM/50 ML ML IV ×3 (05:37→22:21)
[2021-04-26 05:46] LABS: Bedside Glucose 147 mg/dL (70-110)
[2021-04-26] MEDS: Citalopram 10 MG Tablet GT (09:46)
[2021-04-26] MEDS: Losartan Potassium 50 MG Tablet GT (09:46)
[2021-04-26] MEDS: Enoxaparin 40 MG/0.4 ML Syringe SC (09:46)
[2021-04-26] MEDS: Cilostazol 50 MG Tablet 100 MG GT ×2 (09:46→22:22)
[2021-04-26] MEDS: Clopidogrel Bisulfate 75 MG Tablet GT (09:46)
[2021-04-26] MEDS: Gabapentin 300 MG Capsule GT ×3 (09:46→19:00)
[2021-04-26] MEDS: levETIRAcetam Oral Solution 500 MG/5 ML 750 MG GT ×2 (09:47→22:21)
--- NOTE | 2021-04-26 09:51 | CASEMGMT ---
Patient is from [place]. His brother Khanh Blakely is his legal guardian. JUDY placed guardianship paper on patient's chart. JUDY faxed updates to Jennifer with [facility]. JUDY will also check with Khanh to make sure the plan is to return to [place] at discharge. Chiqui Razo MSW DEEPTI
[2021-04-26] MEDS: Aspirin 81 MG TAB.CHEW PO (10:12)
--- NOTE | 2021-04-26 11:07 | PN.HOSP_ITS ---
Documented by User: Rosalia Byrd NP-C 04/26/21 11:26 Subjective Subjective Patient seen and examined. Patient lying in bed no distress noted, currently asleep. Patient drowsy but arousable. Objective Data Objective Data Vital Signs: Vital Signs Temp Pulse Resp BP Pulse Ox 97.3 F L 73 18 118/66 100 04/26/21 09:42 04/26/21 09:42 04/26/21 09:42 04/26/21 09:42 04/26/21 09:42 Oxygen Flow Rate (L/min) 2 Oxygen Delivery Method Nasal Cannula Weight: 275 lb 5.718 oz Body Mass Index (BMI) 43.1 Intake & Output: Intake and Output for Last 24 Hours 04/24/21 04/25/21 04/26/21 23:59 23:59 23:59 Intake Total 3879.05 / 3879.05 995.83 / 995.83 Balance 3879.05 / 3879.05 995.83 / 995.83 Lab / Micro Data Result Diagrams: 04/26/21 03:15 04/26/21 03:15 Labs: Laboratory Results - last 24 hr 04/25/21 15:05: WBC 12.3 H, RBC 4.96, Hgb 15.2, Hct 47.3, MCV 95.4 H, MCH 30.6, MCHC 32.1, RDW Std Deviation 46.6 H, RDW Coeff of Corinne 13.2, Plt Count 212, MPV 9.7, Immature Gran % (Auto) 0.300, Neut % (Auto) 86.2 H, Lymph % (Auto) 6.6 L, [place] % (Auto) 5.3, Eos % (Auto) 1.0, Baso % (Auto) 0.6, Absolute Neuts (auto) 10.6 H, Absolute Lymphs (auto) 0.82 L, Nucleated RBC % 0 04/25/21 15:05: Sodium 143, Potassium 4.5, Chloride 106, Carbon Dioxide 30.0, Anion Gap 7, BUN 13, Creatinine 1.03, Estim Creat Clear Calc 70.87, Est GFR (MDRD) Af Amer 92, Est GFR (MDRD) Non-Af 76, BUN/Creatinine Ratio 12.6, Glucose 133 H, Calcium 8.8, Total Bilirubin 0.50, Direct Bilirubin 0.14, AST 15, ALT 32, Alkaline Phosphatase 123 H, Troponin I High Sens 9, Total Protein 7.3, Albumin 3.5, Globulin 3.8 04/25/21 15:05: Lactic Acid 2.9 H* 04/25/21 16:13: Urine Color Yellow, Urine Clarity Sl. Cloudy, Urine pH 8.0, Ur Specific [place] 1.010, Urine Protein 15 H, Urine Glucose (UA) Normal, Urine Ketones Negative, Urine Occult Blood 150 H, Urine Nitrite Positive H, Urine Bilirubin Negative, Urine Urobilinogen Normal, Ur Leukocyte Esterase 500 H, Urine RBC 0 SEEN, Urine WBC 5-10 SEEN, Ur Squamous Epith Cells 0-5 SEEN, Triple Phos Crystals RARE, Urine Bacteria 2+, Urine Mucus 0 SEEN 04/25/21 19:53: Lactic Acid 2.2 H* 04/25/21 21:07: Troponin I High Sens 488 H* 04/25/21 23:23: Troponin I High Sens 565 H* 04/26/21 00:12: POC Glucose 161 H 04/26/21 03:15: WBC 13.6 H, RBC 4.21 L, Hgb 13.0, Hct 40.9, MCV 97.1 H, MCH 30.9, MCHC 31.8 L, RDW Std Deviation 48.3 H, RDW Coeff of Corinne 13.5, Plt Count 170, MPV 9.6, Immature Gran % (Auto) 0.400, Neut % (Auto) 81.4 H, Lymph % (Auto) 10.6 L, [place] % (Auto) 6.7, Eos % (Auto) 0.4, Baso % (Auto) 0.5, Absolute Neuts (auto) 11.1 H, Absolute Lymphs (auto) 1.44, Nucleated RBC % 0 04/26/21 03:15: Sodium 143, Potassium 4.2, Chloride 114 H, Carbon Dioxide 24.0, Anion Gap 5, BUN 12, Creatinine 0.87, Estim Creat Clear Calc 75.98, Est GFR (MDRD) Af Amer 112, Est GFR (MDRD) Non-Af 92, BUN/Creatinine Ratio 13.8, Glucose 141 H, Calcium 7.7 L, Total Bilirubin 0.50, AST 22, ALT 24, Alkaline Phosphatase 88, Troponin I High Sens 630 H*, Total Protein 5.9 L, Albumin 2.6 L, Globulin 3.3, Albumin/Globulin Ratio 0.8 L 04/26/21 05:34: POC Glucose 147 H Micro: Microbiology 04/25/21 15:05 Blood Culture (Wb) - Left Hand Blood Culture - Preliminary Gram negative sarina 04/25/21 15:35 Blood Culture (Wb) - Left Hand Blood Culture - Preliminary Gram negative sarina 04/25/21 15:35 Mucosa - Nasopharyngeal Influenza Types A,B Direct FA (JAYDA) - Final Influenzae A 04/25/21 15:45 Nasal Secretion SARS-CoV-2 Antigen (Rapid) - Final Radiography Diagnostic Testing: Radiology Impression Chest X-Ray 04/25/21 16:23 IMPRESSION: Left lower lobe linear scarring or atelectasis. at 1642 Reported and signed by: Sidney Crespo MD Electronically Signed: Sidney Crespo MD at 16:41 EST Tel , Service support , Chest CTA 04/25/21 16:55 IMPRESSION: Normal CTA chest examination, without a demonstrated pulmonary embolism or arterial dissection. Electronically Signed: Efrain Arora MD at 18:05 EST Tel , Service support , Physical Exam Const no apparent distress Orientation / Consciousness: lethargic HEENT head/scalp atraumatic and moist oral mucous membranes Head and Scalp: normocephalic Eyes conjunctivae normal and no scleral icterus Neck supple General: trachea midline Resp normal respiratory effort, normal air movement and clear to auscultation bilaterally Cardio regular rate, regular rhythm, S1 normal heart sound and S2 normal heart sound GI normal to inspection, nondistended, normoactive bowel sounds, soft to palpation and non-tender GI Narrative: PEG tube present to mid upper abdominal area Extremity normal to inspection, full ROM and no clubbing, cyanosis or edema Peripheral Pulses: Yes pulses 2+ throughout Skin no rashes or lesions noted, no wounds and skin turgor normal Neuro moves all extremities, no focal motor deficits and no sensory deficits noted Neuro Narrative: Right-sided hemiplegia from previous stroke Speech: total aphasia Psych Mood & Affect: flat affect Assessment & Plan Assessment/Plan (1) Global aphasia: (2) Diabetes mellitus type 2 in obese: (3) Hypertension: QUALIFIERS: Hypertension type: primary hypertension Qualified Code(s): I10 - Essential (primary) hypertension (4) Hyperlipidemia: QUALIFIERS: Hyperlipidemia type: unspecified Qualified Code(s): E78.5 - Hyperlipidemia, unspecified (5) UTI (urinary tract infection): QUALIFIERS: Hematuria presence: without hematuria Urinary tract infection type: site unspecified Qualified Code(s): N39.0 - Urinary tract infection, site not specified (6) PEG (percutaneous endoscopic gastrostomy) adjustment/replacement/removal: PLAN: Patient is a 70-year-old male who presents with nursing reports that patient complained of chest pain. Patient is aphasic but nodded yes when asked if you had chest pain. Patient was found to have urinary tract infection in the ER and was diagnosed with sepsis. 1. Acute urinary tract infection -qSOFA score 1 -Continue IV Rocephin and Zosyn -Continue IV fluids at 125 mL/h -Blood cultures growing gram-negative rods, ID consulted 2. Acute hypoxic respiratory failure -Patient currently on 2 L nasal cannula, not on nasal cannula oxygen at baseline -Possibly secondary to infection -We will continue to wean nasal cannula oxygen as possible 3. Chest pain -No EKG changes noted -Troponins elevated throughout cycle Thorough discussion had with patient's brother who is his legal guardian regarding CODE STATUS. Explained to patient's brother patient's current status and severity of his infection. Despite this patient's brother wants patient to remain a full code at this time. We will continue patient's home medications in relation to his chronic diseases including hypertension, hyperlipidemia, diabetes, seizures. DVT prophylaxis-subcu Lovenox This patient was seen by URIEL TurciosC under the supervision of Dr. Abbott. Documented by User: Dr. Yovani Abbott MD 04/26/21 14:44 Subjective Subjective Seen and examined. Patient has history of remote stroke with residual aphasia, incomprehensible receptive and motor language deficit. Residual weakness. Has PEG tube. Very low functional capacity. prison resident Was transferred to ER for evaluation of questionable chest pain or seizure although history unobtainable because of aphasia history therefore chief complaint mentioned in EMS cannot be substantiated. Patient also had fever which she had here in hospital too. Objective Data Lab / Micro Data Result Diagrams: 04/26/21 03:15 04/26/21 03:15 Physical Exam Narrative General: Lethargic, aphasic, awake. Orientation cannot be ascertained. HEENT: Atraumatic, PERRLA, EOMI, Normocephalic Oral: Dry oral mucosa. Neck: Supple, No JVD, Negative Carotid Bruits Lungs: Air entry diminished in bilateral lung bases. No crepitation/rhonchi Cardiovascular: Regular rate, Regular Rhythm, Normal S1, Normal S2, no murmur Abdomen: PEG tube present. Bowel Sounds Present, Soft, Non Tender, Non- Distended : No renal angle tenderness. No suprapubic tenderness. Extremities: Mild bilateral ankle edema, Capillary Refill Less than 3 Seconds Skin: No rashes, No breakdown Musculoskeletal: ROM limited. Weakness of lower extremity at knee and hip joints. Neurological: DTR 3+/4 at knee joints. Motor, sensory, cranial nerves and higher mental function difficult to examine because patient does not follow command aphasic. Psych: Flat affect Assessment & Plan Assessment/Plan (1) Severe sepsis: PLAN: This patient was seen in conjunction with DEMIAN Lindsey. I have independently interviewed and examined the patient and reviewed pertinent history, examination findings, laboratory and plan of management. I have reviewed the note and agree with the documented findings with the few additional points. In brief, patient is 62 ptomaine, [facility] resident with low functional capacity, old stroke with residual aphasia and weakness was sent to ER for fever, chest pain and seizure. Chest pain and seizure cannot be corroborated. Patient has sepsis with fever, leukocytosis with left shift, mild low blood pressure, lactic acidosis, elevated troponin. UA positive nitrite and LE suggestive of complicated UTI. WBC 5-10 cells. Chest CTA does not show pneumonia PE or acute chest findings. Patient is influenza A positive. Blood cultures x2+ for gram-negative sarina in both aerobic and anaerobic bottles. ID consulted and discussed. Patient on IV Zosyn and oseltamivir. Leukocytosis with left shift. Patient has elevated isolated troponin. Discussed with Dr. Gonzalez. Troponin shows increasing trend but last 1 decreased to 366. 2D echo ordered. No significant ischemic change noted on EKG. Patient has right-sided flaccid paralysis. On Keppra for secondary seizure prophylaxis. Other comorbidities as mentioned above I have discussed my assessment with DEMIAN Lindsey and orders have been reviewed. CODE STATUS mention full code. I discussed with PCP Dr. Marcin Joseph and he suggested to get CODE STATUS. From [facility], [facility] which also mentions full code. His brother wants full code all possible resuscitation even though he understand he has low functional capacity and chances of recovery from code would not be good Total time of the visit including total time spent in counseling or coordination of care, (more than 50% of the total time, spent in obtaining medical information from nurses and other ancillary care providers,explaining to the patient about labs, imaging, diagnosis and management), discussion with PCP, ID and network control supervisor, review of labs and imaging is 35 minutes. Charges/Coding Visit Charges Inpatient E&M: 68822 Subs Hosp L3
[2021-04-26 11:36] LABS: Bedside Glucose 133 mg/dL (70-110)
--- NOTE | 2021-04-26 12:14 | ECHOCS_ITS ---
Reason For Study: OTHER Procedure This was a 2D Doppler, Color Flow transthoracic echocardiogram. The study was technically difficult. Contrast injection was performed. Exam performed portable in patient room. Left Ventricle Based upon the 2D echocardiographic and contrast enhanced images obtained there appears to be grossly normal left ventricular size, wall motion, and systolic function. The estimated ejection fraction is 65 %. Diastolic function is indeterminate. Right Ventricle Based upon the 2D echocardiographic images obtained there appears to be grossly normal right ventricular size and systolic function. Atria The left atrium is not well visualized. The right atrium is not well visualized. No doppler evidence for ASD. Mitral Valve There is mild mitral annular calcification. Normal mitral valve. Trivial mitral valve insufficiency. Tricuspid Valve Normal tricuspid valve. Trivial tricuspid valve insufficiency. Unable to estimate RV systolic pressure/pulmonary artery pressure due to technically difficult study. Aortic Valve Trisinus/trileaflet aortic valve. Mild focal aortic valve calcification. Pulmonic Valve The pulmonic valve is not well visualized. Great Vessels Normal sized aortic root. Pericardium/Pleural No pericardial effusion. Medication Diluted definity 6.0ml given slow IV push to enhance endocardial definition. MMode/2D Measurements & Calculations LVIDd: 4.9 cm IVSd: 1.2 cm Ao root diam: 3.1 cm LVIDs: 3.1 cm LVPWd: 1.1 cm FS: 37.1 % LA dimension(2D): 3.4 cm Time Measurements MV dec time: 0.18 sec Doppler Measurements & Calculations MV E max karine: 72.5 cm/sec Ao V2 max: 148.2 cm/sec LV V1 max: 94.2 cm/sec MV A max karine: 79.5 cm/sec Ao max P.8 mmHg LV V1 max P.6 mmHg MV E/A: 0.91 PA V2 max: 137.0 cm/sec ECHO/Echo Complete W/ Contrast Interpretation Summary The study was technically difficult. Contrast injection was performed. Based upon the 2D echocardiographic and contrast enhanced images obtained there appears to be grossly normal left ventricular size, wall motion, and systolic function. The estimated ejection fraction is 65 %. There is mild mitral annular calcification. Trivial mitral valve insufficiency. Trivial tricuspid valve insufficiency. Mild focal aortic valve calcification. Unable to estimate RV systolic pressure/pulmonary artery pressure due to techni estrellita difficult study. Diastolic function is indeterminate. Ordering Physician: Rosalia Byrd Referring Physician: Marcin Joseph Performed By: Betty Clark, ALISTAIR, RVT
--- NOTE | 2021-04-26 12:20 | PCM.HOSP.N ---
Hospitalist Note Discussed patient's elevated troponins with Dr. Gonzalez. He agrees that troponins may be elevated secondary to urinary tract infection however per his recommendations will repeat EKG in a.m. as well as obtain troponin x1 and echocardiogram as patient has a history of diastolic dysfunction by no record of an echocardiogram in chart or clinisync.
[2021-04-26] MEDS: levETIRAcetam 500 MG Tablet GT (13:42)
[2021-04-26 14:19] LABS: Troponin-I HS 366 pg/mL (3.0-78.0)
--- NOTE | 2021-04-26 14:48 | PCM.CONS.GEN ---
Assessment & Plan Assessment/Plan (1) Global aphasia: (2) Bacteremia due to Gram-negative bacteria: PLAN: GNR bacteremia and (+) ucx. On zosyn. With flu A (+), will add tamiflu. Will follow, thank you, d/w Dr. Abbott. HPI Consult Data Date of Consult: 04/26/21 HPI Narrative HPI Narrative: JUANY MCDOWELL, is a 70 M who [facility] after possible seizure, altered mental status. Started on iv abx. Found to have bacteremia and flu. Pt unable to provide history. Full ROS performed and neg except as noted above. Denies fever, abd pain, dysuria. [facility] Medical History Anxiety Depression Diabetes Dysphagia Hypertension Peripheral vascular disease Sleep apnea Stroke/cerebrovascular accident Home Medications gabapentin [Neurontin] 300 mg G-TUBE TIDCM 05/11/17 [History Last Taken 04/25/21] gemfibrozil 600 mg G-TUBE BIDAC 05/11/17 [History Last Taken 04/25/21] clopidogrel 75 mg G-TUBE DAILY 08/16/17 [History Last Taken 04/25/21] atorvastatin 80 mg G-TUBE QHS 10/07/17 [History Last Taken 04/24/21] ezetimibe 10 mg GT QHS 01/14/19 [History Last Taken 04/24/21] acetaminophen 1,000 mg FEEDING TUBE Q8H #0 tablet 03/15/20 [History Last Taken 04/25/21] cilostazol 100 mg GT BID 03/15/20 [History Last Taken 04/25/21] insulin glargine [Lantus Solostar U-100 Insulin] 20 units SC QHS 03/15/20 [History Last Taken 04/24/21] insulin lispro 12 unit SC TIDCM 03/15/20 [History Last Taken 04/25/21] insulin lispro See Protocol SC TIDCM 03/15/20 [History Last Taken 04/24/21] levetiracetam 500 mg GT DAILY@1200 03/15/20 [History Last Taken 04/25/21] levetiracetam 750 mg GT BID 03/15/20 [History Last Taken 04/25/21] alum-mag hydroxide-simeth [Tari-Lanta] 5 ml FEEDING TUBE TID 04/25/21 [History Last Taken 04/25/21] aspirin 81 mg FEEDING TUBE DAILY 04/25/21 [History Last Taken 04/25/21] citalopram 10 mg FEEDING TUBE DAILY 04/25/21 [History Last Taken 04/25/21] losartan 50 mg FEEDING TUBE DAILY 04/25/21 [History Last Taken 04/25/21] Allergy/AdvReac Type Severity Reaction Status Date / Time No Known Allergies Allergy Verified 04/25/21 14:55 Social History Smoking Status: Never smoker Physical Exam Const no apparent distress General Appearance: cooperative Exam Limitations: altered mental status HEENT normocephalic and head/scalp atraumatic Eyes PERRL and EOMs intact bilaterally Neck supple and No nodes Resp clear to auscultation bilaterally Cardio regular rate and regular rhythm GI soft to palpation, non-tender and non-distended Extremity no clubbing, cyanosis or edema Skin no rashes or lesions noted Neuro Neuro Narrative: aphasia Lab / Micro Data Result Diagrams: 04/26/21 03:15 04/26/21 03:15 Labs: Laboratory Results - last 24 hr 04/25/21 15:05: WBC 12.3 H, RBC 4.96, Hgb 15.2, Hct 47.3, MCV 95.4 H, MCH 30.6, MCHC 32.1, RDW Std Deviation 46.6 H, RDW Coeff of Corinne 13.2, Plt Count 212, MPV 9.7, Immature Gran % (Auto) 0.300, Neut % (Auto) 86.2 H, Lymph % (Auto) 6.6 L, [place] % (Auto) 5.3, Eos % (Auto) 1.0, Baso % (Auto) 0.6, Absolute Neuts (auto) 10.6 H, Absolute Lymphs (auto) 0.82 L, Nucleated RBC % 0 04/25/21 15:05: Sodium 143, Potassium 4.5, Chloride 106, Carbon Dioxide 30.0, Anion Gap 7, BUN 13, Creatinine 1.03, Estim Creat Clear Calc 70.87, Est GFR (MDRD) Af Amer 92, Est GFR (MDRD) Non-Af 76, BUN/Creatinine Ratio 12.6, Glucose 133 H, Calcium 8.8, Total Bilirubin 0.50, Direct Bilirubin 0.14, AST 15, ALT 32, Alkaline Phosphatase 123 H, Troponin I High Sens 9, Total Protein 7.3, Albumin 3.5, Globulin 3.8 04/25/21 15:05: Lactic Acid 2.9 H* 04/25/21 16:13: Urine Color Yellow, Urine Clarity Sl. Cloudy, Urine pH 8.0, Ur Specific [place] 1.010, Urine Protein 15 H, Urine Glucose (UA) Normal, Urine Ketones Negative, Urine Occult Blood 150 H, Urine Nitrite Positive H, Urine Bilirubin Negative, Urine Urobilinogen Normal, Ur Leukocyte Esterase 500 H, Urine RBC 0 SEEN, Urine WBC 5-10 SEEN, Ur Squamous Epith Cells 0-5 SEEN, Triple Phos Crystals RARE, Urine Bacteria 2+, Urine Mucus 0 SEEN 04/25/21 19:53: Lactic Acid 2.2 H* 04/25/21 21:07: Troponin I High Sens 488 H* 04/25/21 23:23: Troponin I High Sens 565 H* 04/26/21 00:12: POC Glucose 161 H 04/26/21 03:15: WBC 13.6 H, RBC 4.21 L, Hgb 13.0, Hct 40.9, MCV 97.1 H, MCH 30.9, MCHC 31.8 L, RDW Std Deviation 48.3 H, RDW Coeff of Corinne 13.5, Plt Count 170, MPV 9.6, Immature Gran % (Auto) 0.400, Neut % (Auto) 81.4 H, Lymph % (Auto) 10.6 L, [place] % (Auto) 6.7, Eos % (Auto) 0.4, Baso % (Auto) 0.5, Absolute Neuts (auto) 11.1 H, Absolute Lymphs (auto) 1.44, Nucleated RBC % 0 04/26/21 03:15: Sodium 143, Potassium 4.2, Chloride 114 H, Carbon Dioxide 24.0, Anion Gap 5, BUN 12, Creatinine 0.87, Estim Creat Clear Calc 75.98, Est GFR (MDRD) Af Amer 112, Est GFR (MDRD) Non-Af 92, BUN/Creatinine Ratio 13.8, Glucose 141 H, Calcium 7.7 L, Total Bilirubin 0.50, AST 22, ALT 24, Alkaline Phosphatase 88, Troponin I High Sens 630 H*, Total Protein 5.9 L, Albumin 2.6 L, Globulin 3.3, Albumin/Globulin Ratio 0.8 L 04/26/21 05:34: POC Glucose 147 H 04/26/21 11:32: POC Glucose 133 H 04/26/21 13:50: Troponin I High Sens 366 H* Micro: Microbiology 04/25/21 16:13 Urine, Catheterized Urine Culture - Preliminary Gram negative sarina 04/25/21 15:05 Blood Culture (Wb) - Left Hand Blood Culture - Preliminary Gram negative sarina 04/25/21 15:35 Blood Culture (Wb) - Left Hand Blood Culture - Preliminary Gram negative sarina 04/25/21 15:35 Mucosa - Nasopharyngeal Influenza Types A,B Direct FA (JAYDA) - Final Influenzae A 04/25/21 15:45 Nasal Secretion SARS-CoV-2 Antigen (Rapid) - Final Radiology Impression Chest X-Ray 04/25/21 16:23 IMPRESSION: Left lower lobe linear scarring or atelectasis. at 1642 Reported and signed by: Sidney Crespo MD Electronically Signed: Sidney Crespo MD at 16:41 EST Tel , Service support , Chest CTA 04/25/21 16:55 IMPRESSION: Normal CTA chest examination, without a demonstrated pulmonary embolism or arterial dissection. Electronically Signed: Efrain Arora MD at 18:05 EST Tel , Service support ,
--- NOTE | 2021-04-26 15:03 | CASEMGMT ---
JUDY confirmed with patient's brother Khanh that the plan is to return to [facility] at discharge. Green sheet on chart. Plan: d/c back to [facility] when ready. Chiqui TATUM
[2021-04-26] MEDS: Oseltamivir Phosphate 75 MG Capsule PO ×2 (15:25→22:21)
[2021-04-26 17:35] LABS: Bedside Glucose 121 mg/dL (70-110)
[2021-04-26] MEDS: Jevity 1.5. 1,000 ML Bottle 220 ML GT ×2 (19:00→22:09)
[2021-04-26] MEDS: Ezetimibe 10 MG Tablet GT (22:21)
[2021-04-26] MEDS: 0.9% Saline Lock 10 ML Syringe IV (22:40)
[2021-04-26] MEDS: Atorvastatin Calcium 80 MG Tablet GT (22:42)
[2021-04-26] MEDS: Insulin Lispro 100 UNIT/ML INSULN.PEN SC (23:23)
[2021-04-26 23:26] LABS: Bedside Glucose 216 mg/dL (70-110)
[2021-04-27] VITALS (13 sets, daily range): BP systolic 115–139; BP diastolic 51–116; PULSE 73–95; RESP 16–18; TEMP 36.5–38.1; O2SAT 94–97
--- NOTE | 2021-04-27 05:55 | EKG12_ITS ---
Test Reason : AM EKG Blood Pressure : / mmHG Vent. Rate : 090 BPM Atrial Rate : 090 BPM P-R Int : 176 ms QRS Dur : 072 ms QT Int : 356 ms P-R-T Axes : 062 051 033 degrees QTc Int : 435 ms Normal sinus rhythm Low voltage QRS Borderline ECG When compared with ECG of 25-APR-2021 15:00, No significant change was found Confirmed by IZAIAH MILLAN, MURIEL ([id number]), web editor SIRENA NANCE ([id number]) on 04/30/2021 8:41:34 AM Referred By: DR SERRANO Confirmed By:MURIEL BLISS MD
[2021-04-27] MEDS: Piperacil/Tazobactam 3.375 GM/50 ML ML IV (06:13)
[2021-04-27] MEDS: Jevity 1.5. 1,000 ML Bottle 220 ML GT ×6 (06:18→21:07)
[2021-04-27 06:47] LABS: Absolute Lymphocyte Count 1.24 X10^3/uL (0.83-4.51); Absolute Neutrophil Count 5.8 X10^3/uL (2.0-7.7); Basophil# 0.04 X10^3/uL; Basophil% 0.5 % (0-1); Eosinophil# 0.09 X10^3/uL; Eosinophils% 1.1 % (0-5); Hematocrit 35.6 % (40-54); Hemoglobin 11.6 g/dL (13.0-16.5); Lymphocyte # 1.24 X10^3/ul (0.83-4.51); Lymphocyte % 15.3 % (19-41); Mean Corp Hgb Conc 32.6 g/dL (32-36); Mean Corpuscular Hgb 30.9 pg (27.0-32.0); Mean Corpuscular Volume 94.9 fL (80-94); Monocyte# 0.98 X10^3/uL; Monocyte% 12.1 % (0-10); NRBC Flagged by Analyzer 0 % (0-5); Neutrophil # 5.75 X10^3/uL (2.7-7.7); Neutrophil % 70.6 % (47-70); Platelet Count 166 K/mm3 (150-450); RBC Distribution Width CV 13.3 % (11.6-14.6); RBC Distribution Width SD 46.6 fl (35.1-43.9); Red Blood Count 3.75 M/mm3 (4.6-6.2); White Blood Count 8.1 K/mm3 (4.4-11.0)
[2021-04-27 07:00] LABS: Bedside Glucose 146 mg/dL (70-110)
[2021-04-27 07:11] LABS: Anion Gap 6 (5-15); BUN 9 mg/dL (7-18); BUN/Creat Ratio 10.9 RATIO (10-20); Calcium,Total 7.8 mg/dL (8.5-10.1); Chloride 109 mmol/L (98-107); Creatinine, Serum 0.83 mg/dL (0.70-1.30); EST Glomerular Filtration Rate 98 mL/min (>60); Est Glom Filt Rate - Afr Amer 119 mL/min (>60); Estimated Creatinine Clearance 79.64 ml/min; Glucose 162 mg/dL (74-106); Potassium 3.8 mmol/L (3.5-5.1); Sodium Level 142 mmol/L (136-145)
[2021-04-27] MEDS: Aspirin 81 MG TAB.CHEW PO (08:34)
[2021-04-27] MEDS: Gabapentin 300 MG Capsule GT ×3 (08:43→16:53)
[2021-04-27] MEDS: Losartan Potassium 50 MG Tablet GT (08:43)
[2021-04-27] MEDS: levETIRAcetam Oral Solution 500 MG/5 ML 750 MG GT ×2 (08:43→21:06)
[2021-04-27] MEDS: Cilostazol 50 MG Tablet 100 MG GT ×2 (08:43→21:06)
[2021-04-27] MEDS: Oseltamivir Phosphate 75 MG Capsule PO ×2 (08:43→21:06)
[2021-04-27] MEDS: Clopidogrel Bisulfate 75 MG Tablet GT (08:43)
[2021-04-27] MEDS: Menthol/Lanolin/Calamine/Znox 113 GM Tube 1 APPLIC TOPICAL ×2 (08:44→21:07)
[2021-04-27] MEDS: Enoxaparin 40 MG/0.4 ML Syringe SC (08:44)
[2021-04-27] MEDS: Citalopram 10 MG Tablet GT (08:44)
[2021-04-27 09:04] LABS: Magnesium 2.1 mg/dL (1.6-2.6)
--- NOTE | 2021-04-27 10:57 | PN.HOSP_ITS ---
Documented by User: Rosalia Byrd NP-Bhavin 04/27/21 11:16 Subjective Subjective Patient seen and examined. Patient lying in bed, asleep. Patient is arousable and will answer yes or no questions however he continues to be very lethargic. Objective Data Objective Data Vital Signs: Vital Signs Temp Pulse Resp BP Pulse Ox 98.3 F 89 18 115/51 L 94 04/27/21 08:30 04/27/21 10:31 04/27/21 08:30 04/27/21 08:30 04/27/21 10:26 Oxygen Flow Rate (L/min) 2 Oxygen Delivery Method Nasal Cannula Weight: 275 lb 5.718 oz Body Mass Index (BMI) 43.1 Intake & Output: Intake and Output for Last 24 Hours 04/25/21 04/26/21 04/27/21 23:59 23:59 23:59 Intake Total 3879.05 / 3879.05 2800.00 / 3140.00 1120 / 1120 Output Total 375 / 375 Balance 3879.05 / 3879.05 2800.00 / 3140.00 745 / 745 Lab / Micro Data Result Diagrams: 04/27/21 05:46 04/27/21 05:46 Labs: Laboratory Results - last 24 hr 04/26/21 11:32: POC Glucose 133 H 04/26/21 13:50: Troponin I High Sens 366 H* 04/26/21 17:15: POC Glucose 121 H 04/26/21 23:15: POC Glucose 216 H 04/27/21 05:46: WBC 8.1, RBC 3.75 L, Hgb 11.6 L, Hct 35.6 L, MCV 94.9 H, MCH 30.9, MCHC 32.6, RDW Std Deviation 46.6 H, RDW Coeff of Corinne 13.3, Plt Count 166, MPV 10.0, Immature Gran % (Auto) 0.400, Neut % (Auto) 70.6 H, Lymph % (Auto) 15.3 L, [place] % (Auto) 12.1 H, Eos % (Auto) 1.1, Baso % (Auto) 0.5, Absolute Neuts (auto) 5.8, Absolute Lymphs (auto) 1.24, Nucleated RBC % 0 04/27/21 05:46: Sodium 142, Potassium 3.8, Chloride 109 H, Carbon Dioxide 27.0, Anion Gap 6, BUN 9, Creatinine 0.83, Estim Creat Clear Calc 79.64, Est GFR (MDRD) Af Amer 119, Est GFR (MDRD) Non-Af 98, BUN/Creatinine Ratio 10.9, Glucose 162 H, Calcium 7.8 L 04/27/21 05:46: Magnesium 2.1 04/27/21 06:17: POC Glucose 146 H Micro: Microbiology 04/25/21 16:13 Urine, Catheterized Urine Culture - Final Proteus mirabilis 04/25/21 15:35 Blood Culture (Wb) - Left Hand Blood Culture - Preliminary Gram negative sarina 04/25/21 15:05 Blood Culture (Wb) - Left Hand Blood Culture - Preliminary Gram negative sarina 04/25/21 15:35 Mucosa - Nasopharyngeal Influenza Types A,B Direct FA (JAYDA) - Final Influenzae A 04/25/21 15:45 Nasal Secretion SARS-CoV-2 Antigen (Rapid) - Final Radiography Diagnostic Testing: Radiology Impression Echocardiogram 04/26/21 12:14 Interpretation Summary The study was technically difficult. Contrast injection was performed. Based upon the 2D echocardiographic and contrast enhanced images obtained there appears to be grossly normal left ventricular size, wall motion, and systolic function. The estimated ejection fraction is 65 %. There is mild mitral annular calcification. Trivial mitral valve insufficiency. Trivial tricuspid valve insufficiency. Mild focal aortic valve calcification. Unable to estimate RV systolic pressure/pulmonary artery pressure due to technically difficult study. Diastolic function is indeterminate. Ordering Physician: Rosalia Byrd Referring Physician: Marcin Joseph Performed By: Betty Clark, RDCS, RVT Physical Exam Const alert, oriented x3 and no apparent distress General Appearance: well kempt and well developed Orientation / Consciousness: lethargic HEENT normocephalic, head/scalp atraumatic and moist oral mucous membranes Eyes conjunctivae normal and no scleral icterus Neck supple General: trachea midline Resp normal respiratory effort, normal air movement, no retractions and clear to aus cultation bilaterally Cardio regular rate, regular rhythm, S1 normal heart sound and S2 normal heart sound GI normal to inspection, nondistended, normoactive bowel sounds, soft to palpation and non-tender GI Narrative: PEG tube present to mid upper abdominal area Extremity normal to inspection, full ROM and no clubbing, cyanosis or edema Skin no rashes or lesions noted, no wounds and skin turgor normal General Skin Exam: no breakdown Neuro moves all extremities, no focal motor deficits and no sensory deficits noted Speech: total aphasia Psych thought process normal and affect normal Mood & Affect: flat affect Assessment & Plan Assessment/Plan (1) Diabetes mellitus type 2 in obese: (2) Global aphasia: PLAN: 1. Acute urinary tract infection -qSOFA score 1 -Continue IV Rocephin and Zosyn -Continue IV fluids at 125 mL/h -Blood cultures growing gram-negative rods, ID consulted 2. Acute hypoxic respiratory failure secondary to influenza A -Patient currently on 2 L nasal cannula, not on nasal cannula oxygen at baseline -Possibly secondary to infection -We will continue to wean nasal cannula oxygen as possible -Tamiflu initiated per ID 3. Chest pain -No EKG changes noted -Troponins elevated throughout cycle Thorough discussion had with patient's brother who is his legal guardian regarding CODE STATUS. Explained to patient's brother patient's current status and severity of his infection. Despite this patient's brother wants patient to remain a full code at this time. We will continue patient's home medications in relation to his chronic diseases including hypertension, hyperlipidemia, diabetes, seizures. DVT prophylaxis-subcu Lovenox This patient was seen by URIEL TurciosC under the supervision of Dr. Abbott. Documented by User: Dr. Yovani Abbott MD 04/27/21 14:01 Subjective Subjective Patient is more awake and follows simple commands like lifting his hand and leg. Better than yesterday. Mild low-grade fever, T-max 100.6 Fahrenheit. Objective Data Lab / Micro Data Result Diagrams: 04/27/21 05:46 04/27/21 05:46 Physical Exam Narrative General: Awake, aphasic, oriented. Responds to simple questions. HEENT: Atraumatic, PERRLA, EOMI, Normocephalic Oral: Dry oral mucosa. Neck: Supple, No JVD, Negative Carotid Bruits Lungs: Air entry diminished in bilateral lung bases. No crepitation/rhonchi Cardiovascular: Regular rate, Regular Rhythm, Normal S1, Normal S2, no murmur Abdomen: PEG tube present. Bowel Sounds Present, Soft, Non Tender, Non- Distended : No renal angle tenderness. No suprapubic tenderness. Extremities: Mild bilateral ankle edema, Capillary Refill Less than 3 Seconds Skin: No rashes, No breakdown Musculoskeletal: ROM limited. Wheelchair-bound or remains in bed. Neurological: DTR 3+/4 at knee joints. Right-sided hemiparalysis. Lifts up left upper and lower extremity, power 4/5. Psych: Flat affect Assessment & Plan Assessment/Plan (1) Bacteremia due to Gram-negative bacteria: PLAN: This patient was seen in conjunction with DEMIAN Lindsey. I have independently interviewed and examined the patient and reviewed pertinent history, examination findings, laboratory and plan of management. I have revi ewed the note and agree with the documented findings with the few additional points. In brief, patient is 70-year-old male, 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 Chest pain and seizure cannot be corroborated. Patient has sepsis with fever, leukocytosis with left shift, mild low blood pressure, lactic acidosis, elevated troponin. UA positive nitrite and LE suggestive of complicated UTI. WBC 5-10 cells. Chest CTA does not show pneumonia PE or acute chest findings. Patient is influenza A positive. Urine culture shows Proteus mirabilis more than 100,000 and blood cultures x2 gram-negative rods. ID consulted and discussed. Patient on IV Zosyn and oseltamivir. Leukocytosis with left shift. 04/27: IV Zosyn discontinued and narrowed down to IV ceftriaxone. Patient has elevated isolated troponin. Discussed with Dr. Gonzalez. Troponin shows increasing trend but last 1 decreased to 366. No significant ischemic change noted on EKG. 2D echo shows grossly normal LV size, wall motion and systolic function, EF 65%. Patient has right-sided flaccid paralysis. On Keppra for secondary seizure prophylaxis. Other comorbidities as mentioned above I have discussed my assessment with DEMIAN Lindsey and orders have been reviewed. CODE STATUS mention full code. I discussed with PCP Dr. Marcin Joseph. CODE STATUS from the [facility] full code. I further discussed with patient's brother near the bedside on 04/27 and he wants all possible resuscitation to try if he gets cardiac or respiratory arrest but if resuscitation pressure prolongs he will withdraw it. He wants to get notified if emergency or cardiopulmonary arrest happens. Total time of the visit including total time spent in counseling or coordination of care, (more than 50% of the total time, spent in obtaining medical information from nurses and other ancillary care providers,explaining to the patient about labs, imaging, diagnosis and management), discussion with PCP, ID and gluten settling tender, review of labs and imaging is 35 minutes. Charges/Coding Visit Charges Inpatient E&M: 73093 Subs Hosp L2
[2021-04-27] MEDS: levETIRAcetam 500 MG Tablet GT (11:00)
[2021-04-27] MEDS: Insulin Lispro 100 UNIT/ML INSULN.PEN SC ×3 (11:01→23:39)
[2021-04-27 11:06] LABS: Bedside Glucose 299 mg/dL (70-110)
[2021-04-27 17:06] LABS: Bedside Glucose 222 mg/dL (70-110)
[2021-04-27] MEDS: Ezetimibe 10 MG Tablet GT (21:06)
[2021-04-27] MEDS: Atorvastatin Calcium 80 MG Tablet GT (21:06)
[2021-04-27 23:41] LABS: Bedside Glucose 233 mg/dL (70-110)
[2021-04-28] VITALS (11 sets, daily range): BP systolic 122–138; BP diastolic 65–77; PULSE 71–104; RESP 16–18; TEMP 36.6–37.7; O2SAT 92–97
[2021-04-28] MEDS: Insulin Lispro 100 UNIT/ML INSULN.PEN SC ×4 (05:10→23:07)
[2021-04-28] MEDS: Jevity 1.5. 1,000 ML Bottle 220 ML GT ×6 (05:10→21:20)
[2021-04-28 05:21] LABS: Bedside Glucose 162 mg/dL (70-110)
[2021-04-28 06:48] LABS: Absolute Lymphocyte Count 1.61 X10^3/uL (0.83-4.51); Absolute Neutrophil Count 6.5 X10^3/uL (2.0-7.7); Basophil# 0.05 X10^3/uL; Basophil% 0.5 % (0-1); Eosinophil# 0.19 X10^3/uL; Hematocrit 35.1 % (40-54); Hemoglobin 11.5 g/dL (13.0-16.5); Lymphocyte # 1.61 X10^3/ul (0.83-4.51); Mean Corp Hgb Conc 32.8 g/dL (32-36); Mean Corpuscular Hgb 30.7 pg (27.0-32.0); Mean Corpuscular Volume 93.6 fL (80-94); Mean Platelet Vol. 10.2 fl (6.2-12.0); Monocyte# 1.15 X10^3/uL; Monocyte% 12.1 % (0-10); NRBC Flagged by Analyzer 0 % (0-5); Neutrophil # 6.45 X10^3/uL (2.7-7.7); Platelet Count 173 K/mm3 (150-450); RBC Distribution Width CV 13.3 % (11.6-14.6); RBC Distribution Width SD 45.8 fl (35.1-43.9); Red Blood Count 3.75 M/mm3 (4.6-6.2); White Blood Count 9.5 K/mm3 (4.4-11.0)
[2021-04-28 07:26] LABS: Anion Gap 6 (5-15); BUN 6 mg/dL (7-18); BUN/Creat Ratio 9.1 RATIO (10-20); Calcium,Total 8.1 mg/dL (8.5-10.1); Chloride 110 mmol/L (98-107); Creatinine, Serum 0.66 mg/dL (0.70-1.30); EST Glomerular Filtration Rate 127 mL/min (>60); Est Glom Filt Rate - Afr Amer 154 mL/min (>60); Glucose 150 mg/dL (74-106); Potassium 3.8 mmol/L (3.5-5.1); Sodium Level 143 mmol/L (136-145)
[2021-04-28] MEDS: Enoxaparin 40 MG/0.4 ML Syringe SC (08:53)
[2021-04-28] MEDS: Losartan Potassium 50 MG Tablet GT (08:54)
[2021-04-28] MEDS: Gabapentin 300 MG Capsule GT ×3 (08:54→17:11)
[2021-04-28] MEDS: Aspirin 81 MG TAB.CHEW PO (08:54)
[2021-04-28] MEDS: Oseltamivir Phosphate 75 MG Capsule PO ×2 (08:54→21:25)
[2021-04-28] MEDS: Clopidogrel Bisulfate 75 MG Tablet GT (08:54)
[2021-04-28] MEDS: levETIRAcetam Oral Solution 500 MG/5 ML 750 MG GT ×2 (08:54→21:25)
[2021-04-28] MEDS: Cilostazol 50 MG Tablet 100 MG GT ×2 (08:54→21:25)
[2021-04-28] MEDS: Citalopram 10 MG Tablet GT (08:54)
[2021-04-28] MEDS: 0.9% Saline Lock 10 ML Syringe IV (08:55)
[2021-04-28] MEDS: Menthol/Lanolin/Calamine/Znox 113 GM Tube 1 APPLIC TOPICAL ×2 (08:55→21:20)
[2021-04-28] MEDS: levETIRAcetam 500 MG Tablet GT (11:06)
[2021-04-28 11:10] LABS: Bedside Glucose 277 mg/dL (70-110)
--- NOTE | 2021-04-28 12:21 | PCM.PN.HOSP ---
Subjective Subjective Overall improvement in patient general condition. Intermittent low-grade fever, T-max 99.6 Fahrenheit. Last fever 100.6 Fahrenheit on 04/27, 4 AM. Objective Data Objective Data Vital Signs: Vital Signs Temp Pulse Resp BP Pulse Ox 98.3 F 104 H 18 129/65 H 92 04/28/21 08:48 04/28/21 10:40 04/28/21 08:48 04/28/21 08:48 04/28/21 09:44 Oxygen Flow Rate (L/min) 2 Oxygen Delivery Method Room Air Weight: 275 lb 5.718 oz Body Mass Index (BMI) 43.1 Intake & Output: Intake and Output for Last 24 Hours 04/26/21 04/27/21 04/28/21 23:59 23:59 23:59 Intake Total 2800.00 / 3140.00 2870 / 2870 510 / 510 Output Total 375 / 375 50 / 50 Balance 2800.00 / 3140.00 2495 / 2495 460 / 460 Lab / Micro Data Result Diagrams: 04/28/21 05:04 04/28/21 05:04 Labs: Laboratory Results - last 24 hr 04/27/21 16:51: POC Glucose 222 H 04/27/21 23:36: POC Glucose 233 H 04/28/21 05:04: WBC 9.5, RBC 3.75 L, Hgb 11.5 L, Hct 35.1 L, MCV 93.6, MCH 30.7, MCHC 32.8, RDW Std Deviation 45.8 H, RDW Coeff of Corinne 13.3, Plt Count 173, MPV 10.2, Immature Gran % (Auto) 0.400, Neut % (Auto) 68.0, Lymph % (Auto) 17.0 L, [place] % (Auto) 12.1 H, Eos % (Auto) 2.0, Baso % (Auto) 0.5, Absolute Neuts (auto) 6.5, Absolute Lymphs (auto) 1.61, Nucleated RBC % 0 04/28/21 05:04: Sodium 143, Potassium 3.8, Chloride 110 H, Carbon Dioxide 27.0, Anion Gap 6, BUN 6 L, Creatinine 0.66 L, Estim Creat Clear Calc 66.10, Est GFR (MDRD) Af Amer 154, Est GFR (MDRD) Non-Af 127, BUN/Creatinine Ratio 9.1 L, Glucose 150 H, Calcium 8.1 L 04/28/21 05:09: POC Glucose 162 H 04/28/21 11:05: POC Glucose 277 H Micro: Microbiology 04/25/21 15:35 Blood Culture (Wb) - Left Hand Blood Culture - Final Gram negative sarina 04/25/21 15:05 Blood Culture (Wb) - Left Hand Blood Culture - Final Proteus mirabilis 04/25/21 16:13 Urine, Catheterized Urine Culture - Final Proteus mirabilis 04/25/21 15:35 Mucosa - Nasopharyngeal Influenza Types A,B Direct FA (JAYDA) - Final Influenzae A 04/25/21 15:45 Nasal Secretion SARS-CoV-2 Antigen (Rapid) - Final Physical Exam Narrative General: Awake, aphasic. Responds to simple questions. HEENT: Atraumatic, PERRLA, EOMI, Normocephalic Oral: Dry oral mucosa. Neck: Supple, No JVD, Negative Carotid Bruits Lungs: Air entry diminished in bilateral lung bases. No crepitation/rhonchi Cardiovascular: Regular rate, Regular Rhythm, Normal S1, Normal S2, no murmur Abdomen: PEG tube present. Bowel Sounds Present, Soft, Non Tender, Non-Distended : No renal angle tenderness. No suprapubic tenderness. Extremities: Mild bilateral ankle edema, Capillary Refill Less than 3 Seconds Skin: No rashes, No breakdown Musculoskeletal: ROM limited. Wheelchair-bound or remains in bed. Needs lift for moving the patient out of bed Neurological: DTR 2+/4 at knee joints. Right-sided hemiparalysis. left upper and lower extremity, power 4/5. Psych: Flat affect Assessment & Plan Assessment/Plan (1) Bacteremia due to Gram-negative bacteria: PLAN: This patient was seen in conjunction with DEMIAN Lindsey. I have independently interviewed and examined the patient and reviewed pertinent history, examination findings, laboratory and plan of management. I have reviewed the note and agree with the documented findings with the few additional points. 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 Chest pain and seizure cannot be corroborated. Patient has sepsis with fever, leukocytosis with left shift, mild low blood pressure, lactic acidosis, elevated troponin. UA positive nitrite and LE suggestive of complicated UTI. WBC 5-10 cells. Chest CTA does not show pneumonia PE or acute chest findings. Patient is influenza A positive. Urine culture shows Proteus mirabilis more than 100,000 and blood cultures x2 gram-negative rods. ID consulted and discussed. Patient on IV Zosyn and oseltamivir. Leukocytosis with left shift. 04/27: IV Zosyn discontinued and narrowed down to IV ceftriaxone. 04/28: Repeat blood culture ordered. Low-grade temperature T-max 99.6 Fahrenheit. Possible discharge tomorrow after ID follow-up if patient remains afebrile for 48 hours. Blood culture and urine culture showing Proteus mirabilis, sensitive to ceftriaxone. Patient has elevated isolated troponin. Discussed with Dr. Gonzalez. Troponin shows increasing trend but last 1 decreased to 366. No significant ischemic change noted on EKG. 2D echo shows grossly normal LV size, wall motion and systolic function, EF 65%. Patient has right-sided flaccid paralysis. On Keppra for secondary seizure prophylaxis. Other comorbidities as mentioned above I have discussed my assessment with Rosalia, HORTICULTURAL NURSERY ASSISTANT and orders have been reviewed. CODE STATUS mention full code. I discussed with PCP Dr. Marcin Joseph. CODE STATUS from the long-term full code. I further discussed with patient's brother near the bedside on 04/27 and he wants all possible resuscitation to try if he gets cardiac or respiratory arrest but if resuscitation pressure prolongs he will withdraw it. He wants to get notified if emergency or cardiopulmonary arrest happens. Total time of the visit including total time spent in counseling or coordination of care, (more than 50% of the total time, spent in obtaining medical information from nurses and other ancillary care providers,explaining to the patient about labs, imaging, diagnosis and management), discussion with PCP, ID and vice president of marketing, review of labs and imaging is 35 minutes. Charges/Coding Visit Charges Inpatient E&M: 61525 Subs Hosp L2
[2021-04-28 18:31] LABS: Bedside Glucose 261 mg/dL (70-110)
[2021-04-28] MEDS: Atorvastatin Calcium 80 MG Tablet GT (21:25)
[2021-04-28] MEDS: Ezetimibe 10 MG Tablet GT (21:25)
[2021-04-28 23:10] LABS: Bedside Glucose 240 mg/dL (70-110)
[2021-04-29] VITALS (7 sets, daily range): BP systolic 101–111; BP diastolic 60–66; PULSE 76–84; RESP 18–20; TEMP 36.9–37; O2SAT 89–96
[2021-04-29] MEDS: Jevity 1.5. 1,000 ML Bottle 220 ML GT ×3 (05:01→11:53)
[2021-04-29] MEDS: Insulin Lispro 100 UNIT/ML INSULN.PEN SC ×2 (05:14→11:51)
[2021-04-29 05:15] LABS: Bedside Glucose 187 mg/dL (70-110)
[2021-04-29 06:24] LABS: Absolute Lymphocyte Count 1.66 X10^3/uL (0.83-4.51); Absolute Neutrophil Count 4.2 X10^3/uL (2.0-7.7); Basophil# 0.06 X10^3/uL; Basophil% 0.8 % (0-1); Eosinophil# 0.29 X10^3/uL; Hematocrit 34.5 % (40-54); Hemoglobin 11.5 g/dL (13.0-16.5); Lymphocyte # 1.66 X10^3/ul (0.83-4.51); Lymphocyte % 22.7 % (19-41); Mean Corp Hgb Conc 33.3 g/dL (32-36); Mean Platelet Vol. 10.2 fl (6.2-12.0); Monocyte# 1.08 X10^3/uL; Monocyte% 14.8 % (0-10); NRBC Flagged by Analyzer 0 % (0-5); Neutrophil # 4.19 X10^3/uL (2.7-7.7); Neutrophil % 57.4 % (47-70); Platelet Count 169 K/mm3 (150-450); RBC Distribution Width CV 13.1 % (11.6-14.6); RBC Distribution Width SD 44.3 fl (35.1-43.9); Red Blood Count 3.71 M/mm3 (4.6-6.2); White Blood Count 7.3 K/mm3 (4.4-11.0)
[2021-04-29 06:45] LABS: Anion Gap 5 (5-15); BUN 7 mg/dL (7-18); BUN/Creat Ratio 10.2 RATIO (10-20); Calcium,Total 8.3 mg/dL (8.5-10.1); Chloride 106 mmol/L (98-107); Creatinine, Serum 0.69 mg/dL (0.70-1.30); EST Glomerular Filtration Rate 121 mL/min (>60); Est Glom Filt Rate - Afr Amer 147 mL/min (>60); Glucose 186 mg/dL (74-106); Potassium 3.7 mmol/L (3.5-5.1); Sodium Level 144 mmol/L (136-145)
[2021-04-29] MEDS: Aspirin 81 MG TAB.CHEW PO (08:38)
[2021-04-29] MEDS: Gabapentin 300 MG Capsule GT ×2 (08:38→11:51)
[2021-04-29] MEDS: Menthol/Lanolin/Calamine/Znox 113 GM Tube 1 APPLIC TOPICAL (08:38)
[2021-04-29] MEDS: Citalopram 10 MG Tablet GT (08:39)
[2021-04-29] MEDS: levETIRAcetam Oral Solution 500 MG/5 ML 750 MG GT (08:39)
[2021-04-29] MEDS: Oseltamivir Phosphate 75 MG Capsule PO (08:39)
[2021-04-29] MEDS: Clopidogrel Bisulfate 75 MG Tablet GT (08:40)
[2021-04-29] MEDS: Cilostazol 50 MG Tablet 100 MG GT (08:40)
[2021-04-29] MEDS: Enoxaparin 40 MG/0.4 ML Syringe SC (08:40)
--- NOTE | 2021-04-29 09:23 | CASEMGMT ---
JUDY faxed updates to [facility]. Chiqui Razo CAREER RESOURCE TECHNICIAN [employer]EWELRY [employer]ARING [employer]
--- NOTE | 2021-04-29 10:07 | TREXTCAR_ITS ---
Documented by User: THUAN Turcios 04/29/21 10:43 Diet 04/25/21 20:38 Diet: Nothing Per Oral Routine Orders/Code Status Enema Type: Fleetz Enema Frequency: Daily PRN Suppository Type: Dulcolax 10mg Suppository Frequency: Daily PRN O2 Liters per Minute: 2 O2 Frequency: PRN Code Status: Full Code Suggestions for Active Care Change Position every (hours): 2 Problem/Diagnosis (1) Bacteremia due to Gram-negative bacteria: Status: Acute Allergies/Procedures Done in Hospital Allergies No Known Allergies Allergy (Verified 04/25/21 14:55) Procedures: 2-D Echocardiogram Type of Care/Length of Stay Estimated LOS: More Than 30 Days Type of Care Needed: Intermediate Rehab Potential: Poor Prognosis: Poor Additional Orders/Day of Discharge Day of Discharge: 04/29/21 Dietary and Speech Recommendations Dietitian Recommendations/Changes: Pt is NPO; Will order 220mL Jevity 1.5 Juan 6 bolus feedings per day with 120ml water flush Q feeding to provide 1980 kcal, 84 gm pro and 1723 ml/free water per day. Will monitor TF tolerance as established and adjust TF support as needed. Discharge Plan Admission Admit Date/Time: 04/25/21 19:44 Primary Reason for Your Visit: UTI, Influenza A Attending Provider: Ken Melgoza Primary Care Provider: Marcin Joseph Consulting Providers: Jc Jorgensen Discharge Orders/Prescriptions Prescriptions: New oseltamivir 75 mg Capsule 75 mg PO BID Qty: 0 RF: 0 cefdinir 300 mg capsule 300 mg PO BID 4 Days Qty: 8 RF: 0 Continued gabapentin [Neurontin] 250 MG/5 ML solution 300 mg G-tube TIDCM RF: 0 gemfibrozil 600 MG tablet 600 mg G-tube BIDAC RF: 0 clopidogrel 75 MG tablet 75 mg G-tube DAILY RF: 0 atorvastatin 80 MG tablet 80 mg G-tube QHS RF: 0 ezetimibe 10 MG tablet 10 mg GT QHS RF: 0 levetiracetam 750 MG tablet 750 mg GT BID RF: 0 insulin lispro 100 UNIT/ML cartridge 12 unit SC TIDCM RF: 0 Lantus Solostar U-100 Insulin 100 UNITS/ML insulin pen 20 units SC QHS RF: 0 insulin lispro 100 UNIT/ML cartridge See Protocol unit SC TIDCM RF: 0 cilostazol 100 MG tablet 100 mg GT BID RF: 0 levetiracetam 500 MG tablet 500 mg GT DAILY@1200 RF: 0 acetaminophen 500 mg Tablet 1,000 mg feeding tube Q8H Qty: 0 RF: 0 losartan 50 mg tablet 50 mg feeding tube DAILY RF: 0 citalopram 10 mg tablet 10 mg feeding tube DAILY RF: 0 aspirin 81 mg Tablet,Delayed Release (Dr/Ec) 81 mg feeding tube DAILY RF: 0 alum-mag hydroxide-simeth [Tari-Lanta] 200-200-20 mg/5 mL Suspension 5 ml feeding tube TID RF: 0 Referrals / Follow Up: Marcin Joseph MD [Primary Care Provider] - Disposition Disposition (needs filled in before D/C Order can be placed): NonSkilled NH/Intermed Care Documented by User: Dr. Ken Melgoza MD 04/29/21 11:50 Allergies/Procedures Done in Hospital Allergies No Known Allergies Allergy (Verified 04/25/21 14:55) Discharge Plan Admission Admit Date/Time: 04/25/21 19:44 Primary Reason for Your Visit: UTI, Influenza A Attending Provider: Ken Melgoza Primary Care Provider: Marcin Joseph Consulting Providers: Jc Jorgensen Discharge Orders/Prescriptions Prescriptions: New oseltamivir 75 mg Capsule 75 mg PO BID Qty: 0 RF: 0 cefdinir 300 mg capsule 300 mg PO BID 4 Days Qty: 8 RF: 0 Continued gabapentin [Neurontin] 250 MG/5 ML solution 300 mg G-tube TIDCM RF: 0 gemfibrozil 600 MG tablet 600 mg G-tube BIDAC RF: 0 clopidogrel 75 MG tablet 75 mg G-tube DAILY RF: 0 atorvastatin 80 MG tablet 80 mg G-tube QHS RF: 0 ezetimibe 10 MG tablet 10 mg GT QHS RF: 0 levetiracetam 750 MG tablet 750 mg GT BID RF: 0 insulin lispro 100 UNIT/ML cartridge 12 unit SC TIDCM RF: 0 Lantus Solostar U-100 Insulin 100 UNITS/ML insulin pen 20 units SC QHS RF: 0 insulin lispro 100 UNIT/ML cartridge See Protocol unit SC TIDCM RF: 0 cilostazol 100 MG tablet 100 mg GT BID RF: 0 levetiracetam 500 MG tablet 500 mg GT DAILY@1200 RF: 0 acetaminophen 500 mg Tablet 1,000 mg feeding tube Q8H Qty: 0 RF: 0 losartan 50 mg tablet 50 mg feeding tube DAILY RF: 0 citalopram 10 mg tablet 10 mg feeding tube DAILY RF: 0 aspirin 81 mg Tablet,Delayed Release (Dr/Ec) 81 mg feeding tube DAILY RF: 0 alum-mag hydroxide-simeth [Tari-Lanta] 200-200-20 mg/5 mL Suspension 5 ml feeding tube TID RF: 0 Referrals / Follow Up: Marcin Joseph MD [Primary Care Provider] - Disposition Disposition (needs filled in before D/C Order can be placed): NonSkilled NH /Intermed Care
--- NOTE | 2021-04-29 10:17 | DS.PCM_ITS ---
Documented by User: THUAN Turcios 04/29/21 10:43 Providers Date of Admission: 04/25/21 Primary Care Physician: Dr. Marcin Joseph MD Consultations 04/26/21 09:57 Consult: Infectious Disease Routine Consulting Provider: Jc Jorgensen Reason for Consult: UTI EMERGENT Consult: No MD Notified: Yes Date Notified: 04/26/21 Time Notified: 10:09 Method of Notification: Answering Service Reason For Visit: SEVER SEPSIS SECONDARY TO ACUTE CYSTITIS Diagnosis Discharge Diagnosis (1) Bacteremia due to Gram-negative bacteria: Status: Acute Code(s): R78.81 - Bacteremia Medications at Discharge Home Medications gabapentin [Neurontin] 300 mg G-TUBE TIDCM 05/11/17 gemfibrozil 600 mg G-TUBE BIDAC 05/11/17 clopidogrel 75 mg G-TUBE DAILY 08/16/17 atorvastatin 80 mg G-TUBE QHS 10/07/17 ezetimibe 10 mg GT QHS 01/14/19 Lantus Solostar U-100 Insulin 20 units SC QHS 03/15/20 acetaminophen 1,000 mg FEEDING TUBE Q8H #0 tablet 03/15/20 cilostazol 100 mg GT BID 03/15/20 insulin lispro 12 unit SC TIDCM 03/15/20 insulin lispro See Protocol SC TIDCM 03/15/20 levetiracetam 500 mg GT DAILY@1200 03/15/20 levetiracetam 750 mg GT BID 03/15/20 alum-mag hydroxide-simeth [Tari-Lanta] 5 ml FEEDING TUBE TID 04/25/21 aspirin 81 mg FEEDING TUBE DAILY 04/25/21 citalopram 10 mg FEEDING TUBE DAILY 04/25/21 losartan 50 mg FEEDING TUBE DAILY 04/25/21 cefdinir 300 mg PO BID #14 cap 04/29/21 oseltamivir 75 mg PO BID #0 cap 04/29/21 Hospital Course Operations None Procedures 2-D Echocardiogram Summary of Care Provided Minutes Spent on Discharge: 35 Hospital Course: Patient is a 70-year-old male who was originally admitted for concerns for possible seizure. Patient has aphasia due to history of a stroke further investigation of symptoms and onset difficult. Patient underwent evaluation in the ER and was noted to have a urinary tract infection as well as be positive for flu A. Patient underwent 3 days of IV antibiotics for urinary tract infection as well as being initiated on Tamiflu for influenza A. Patient will be discharged back to [facility] where he is a resident of. During patient's hospitalization CODE STATUS was discussed with his brother and patient is to remain a full code at this time. Patient received medications and nutrition via his PEG tube which was placed prior to patient's arrival to the hospital this admission. Physical Exam Const alert and no apparent distress General Appearance: well kempt and well developed HEENT normocephalic, head/scalp atraumatic and moist oral mucous membranes Eyes conjunctivae normal and no scleral icterus Neck supple General: trachea midline Resp normal respiratory effort, normal air movement, no retractions and clear to auscultation bilaterally Cardio regular rate, regular rhythm, S1 normal heart sound and S2 normal heart sound GI normal to inspection, nondistended, normoactive bowel sounds, soft to palpation and non-tender GI Narrative: PEG tube present to mid upper abdominal area Extremity normal to inspection, full ROM and no clubbing, cyanosis or edema Extremity Narrative: Patient has right-sided hemiplegia Skin no rashes or lesions noted, no wounds and skin turgor normal General Skin Exam: no breakdown Neuro moves all extremities, no focal motor deficits and no sensory deficits noted Neuro Narrative: Right-sided hemiplegia from previous stroke Sensorium / Orientation: awake and alert Speech: total aphasia Psych thought process normal and affect normal Weight / BMI Weight Weight: 275 lb 5.718 oz Body Mass Index (BMI) 43.1 ABG / Lab / Microbiology Data Result Diagrams: 04/29/21 05:00 04/29/21 05:00 Laboratory: Laboratory Results - last 24 hr 04/28/21 11:05: POC Glucose 277 H 04/28/21 17:10: POC Glucose 261 H 04/28/21 23:06: POC Glucose 240 H 04/29/21 05:00: WBC 7.3, RBC 3.71 L, Hgb 11.5 L, Hct 34.5 L, MCV 93.0, MCH 31.0, MCHC 33.3, RDW Std Deviation 44.3 H, RDW Coeff of Corinne 13.1, Plt Count 169, MPV 10.2, Immature Gran % (Auto) 0.300, Neut % (Auto) 57.4, Lymph % (Auto) 22.7, [place] % (Auto) 14.8 H, Eos % (Auto) 4.0, Baso % (Auto) 0.8, Absolute Neuts (auto) 4.2, Absolute Lymphs (auto) 1.66, Nucleated RBC % 0 04/29/21 05:00: Sodium 144, Potassium 3.7, Chloride 106, Carbon Dioxide 33.0 H, Anion Gap 5, BUN 7, Creatinine 0.69 L, Estim Creat Clear Calc 66.10, Est GFR (MDRD) Af Amer 147, Est GFR (MDRD) Non-Af 121, BUN/Creatinine Ratio 10.2, Glucose 186 H, Calcium 8.3 L 04/29/21 05:11: POC Glucose 187 H Microbiology: Microbiology 04/25/21 15:35 Blood Culture (Wb) - Left Hand Blood Culture - Final Gram negative sarina 04/25/21 15:05 Blood Culture (Wb) - Left Hand Blood Culture - Final Proteus mirabilis 04/25/21 16:13 Urine, Catheterized Urine Culture - Final Proteus mirabilis 04/25/21 15:35 Mucosa - Nasopharyngeal Influenza Types A,B Direct FA (JAYDA) - Final Influenzae A 04/25/21 15:45 Nasal Secretion SARS-CoV-2 Antigen (Rapid) - Final D/C Instructions Discharge Diet: Low fat / Low cholesterol and 1800 Calorie Control Diet Discharge Activity: Return to Normal Activity Meaningful Use Info Meaningful Use Diagnoses (Choose all that apply): None applicable Discharge Plan Admission Admit Date/Time: 04/25/21 19:44 Primary Reason for Your Visit: UTI, Influenza A Attending Provider: Ken Melgoza Primary Care Provider: Marcin Joseph Consulting Providers: Jc Jorgensen Discharge Orders/Prescriptions Prescriptions: New oseltamivir 75 mg Capsule 75 mg PO BID Qty: 0 RF: 0 cefdinir 300 mg capsule 300 mg PO BID Qty: 14 RF: 0 Continued gabapentin [Neurontin] 250 MG/5 ML solution 300 mg G-tube TIDCM RF: 0 gemfibrozil 600 MG tablet 600 mg G-tube BIDAC RF: 0 clopidogrel 75 MG tablet 75 mg G-tube DAILY RF: 0 atorvastatin 80 MG tablet 80 mg G-tube QHS RF: 0 ezetimibe 10 MG tablet 10 mg GT QHS RF: 0 levetiracetam 750 MG tablet 750 mg GT BID RF: 0 insulin lispro 100 UNIT/ML cartridge 12 unit SC TIDCM RF: 0 Lantus Solostar U-100 Insulin 100 UNITS/ML insulin pen 20 units SC QHS RF: 0 insulin lispro 100 UNIT/ML cartridge See Protocol unit SC TIDCM RF: 0 cilostazol 100 MG tablet 100 mg GT BID RF: 0 levetiracetam 500 MG tablet 500 mg GT DAILY@1200 RF: 0 acetaminophen 500 mg Tablet 1,000 mg feeding tube Q8H Qty: 0 RF: 0 losartan 50 mg tablet 50 mg feeding tube DAILY RF: 0 citalopram 10 mg tablet 10 mg feeding tube DAILY RF: 0 aspirin 81 mg Tablet,Delayed Release (Dr/Ec) 81 mg feeding tube DAILY RF: 0 alum-mag hydroxide-simeth [Tari-Lanta] 200-200-20 mg/5 mL Suspension 5 ml feeding tube TID RF: 0 Referrals / Follow Up: Marcin Joseph MD [Primary Care Provider] - Disposition Disposition (needs filled in before D/C Order can be placed): NonSkilled NH/Intermed Care Documented by User: Dr. Ken Melgoza MD 04/29/21 11:58 Providers Date of Admission: 04/25/21 Reason For Visit: SEVER SEPSIS SECONDARY TO ACUTE CYSTITIS Medications at Discharge Home Medications gabapentin [Neurontin] 300 mg G-TUBE TIDCM 05/11/17 gemfibrozil 600 mg G-TUBE BIDAC 05/11/17 clopidogrel 75 mg G-TUBE DAILY 08/16/17 atorvastatin 80 mg G-TUBE QHS 10/07/17 ezetimibe 10 mg GT QHS 01/14/19 Lantus Solostar U-100 Insulin 20 units SC QHS 03/15/20 acetaminophen 1,000 mg FEEDING TUBE Q8H #0 tablet 03/15/20 cilostazol 100 mg GT BID 03/15/20 insulin lispro 12 unit SC TIDCM 03/15/20 insulin lispro See Protocol SC TIDCM 03/15/20 levetiracetam 500 mg GT DAILY@1200 03/15/20 levetiracetam 750 mg GT BID 03/15/20 alum-mag hydroxide-simeth [Tari-Lanta] 5 ml FEEDING TUBE TID 04/25/21 aspirin 81 mg FEEDING TUBE DAILY 04/25/21 citalopram 10 mg FEEDING TUBE DAILY 04/25/21 losartan 50 mg FEEDING TUBE DAILY 04/25/21 cefdinir 300 mg PO BID #14 cap 04/29/21 oseltamivir 75 mg PO BID #0 cap 04/29/21 ABG / Lab / Microbiology Data Result Diagrams: 04/29/21 05:00 04/29/21 05:00 Discharge Plan Admission Admit Date/Time: 04/25/21 19:44 Primary Reason for Your Visit: UTI, Influenza A Attending Provider: Ken Melgoza Primary Care Provider: Marcin Joseph Consulting Providers: Jc Jorgensen Discharge Orders/Prescriptions Prescriptions: New oseltamivir 75 mg Capsule 75 mg PO BID Qty: 0 RF: 0 cefdinir 300 mg capsule 300 mg PO BID Qty: 14 RF: 0 Continued gabapentin [Neurontin] 250 MG/5 ML solution 300 mg G-tube TIDCM RF: 0 gemfibrozil 600 MG tablet 600 mg G-tube BIDAC RF: 0 clopidogrel 75 MG tablet 75 mg G-tube DAILY RF: 0 atorvastatin 80 MG tablet 80 mg G-tube QHS RF: 0 ezetimibe 10 MG tablet 10 mg GT QHS RF: 0 levetiracetam 750 MG tablet 750 mg GT BID RF: 0 insulin lispro 100 UNIT/ML cartridge 12 unit SC TIDCM RF: 0 Lantus Solostar U-100 Insulin 100 UNITS/ML insulin pen 20 units SC QHS RF: 0 insulin lispro 100 UNIT/ML cartridge See Protocol unit DC TIDCM RF: 0 cilostazol 100 MG tablet 100 mg GT BID RF: 0 levetiracetam 500 MG tablet 500 mg GT DAILY@1200 RF: 0 acetaminophen 500 mg Tablet 1,000 mg feeding tube Q8H Qty: 0 RF: 0 losartan 50 mg tablet 50 mg feeding tube DAILY RF: 0 citalopram 10 mg tablet 10 mg feeding tube DAILY RF: 0 aspirin 81 mg Tablet,Delayed Release (Dr/Ec) 81 mg feeding tube DAILY RF: 0 alum-mag hydroxide-simeth [Tari-Lanta] 200-200-20 mg/5 mL Suspension 5 ml feeding tube TID RF: 0 Referrals / Follow Up: Marcin Joseph MD [Primary Care Provider] - Disposition Disposition (needs filled in before D/C Order can be placed): NonSkilled NH/Intermed Care Charges/Coding Addendum Addendum: Dr. Melgoza: I personally reviewed the chart and examined the patient, and agree with the above findings. 70-year-old male from a correction secondary to a history of stroke that led to aphasia and right-sided paralysis presents to the hospital with severe sepsis from a combination of a UTI with gram-negative sarina bacteremia and influenza A. Infectious disease was consulted and recommended Rocephin for the pansensitive Proteus that was growing in both his blood and his urine culture. He has tested negative for Covid twice and he was started on Tamiflu for his influenza a. Feels much better today than he did when he came in to the hospital and he has been 24 to 48 hours he had a fever. He will need to complete 10 to 14 days of oral antibiotics total, on discharge, as well as a course of Tamiflu, he has received 3 to 4 days of antibiotics here in the hospital. Visit Charges Inpatient E&M: 40319 Disch Hosp
--- NOTE | 2021-04-29 11:32 | PHA.DC.MR ---
Pharmacy Service has performed discharge medication reconciliation for this patient. The patient's discharge medication list was reviewed for discrepancies and discrepancies were resolved. Home Medications gabapentin [Neurontin] 300 mg G-TUBE TIDCM 05/11/17 gemfibrozil 600 mg G-TUBE BIDAC 05/11/17 clopidogrel 75 mg G-TUBE DAILY 08/16/17 atorvastatin 80 mg G-TUBE QHS 10/07/17 ezetimibe 10 mg GT QHS 01/14/19 Lantus Solostar U-100 Insulin 20 units SC QHS 03/15/20 acetaminophen 1,000 mg FEEDING TUBE Q8H #0 tablet 03/15/20 cilostazol 100 mg GT BID 03/15/20 insulin lispro 12 unit SC TIDCM 03/15/20 insulin lispro See Protocol SC TIDCM 03/15/20 levetiracetam 500 mg GT DAILY@1200 03/15/20 levetiracetam 750 mg GT BID 03/15/20 alum-mag hydroxide-simeth [Tari-Lanta] 5 ml FEEDING TUBE TID 04/25/21 aspirin 81 mg FEEDING TUBE DAILY 04/25/21 citalopram 10 mg FEEDING TUBE DAILY 04/25/21 losartan 50 mg FEEDING TUBE DAILY 04/25/21 cefdinir 300 mg PO BID 4 Days #8 cap 04/29/21 oseltamivir 75 mg PO BID #0 cap 04/29/21
--- NOTE | 2021-04-29 11:42 | CASEMGMT ---
JUDY called Jennifer at [facility] and left her a message letting her know patient will be returning to [facility] today. Chiqui Razo RETAIL EQUIPMENT ASSOCIATE DEEPTI
[2021-04-29] MEDS: levETIRAcetam 500 MG Tablet GT (11:51)
--- NOTE | 2021-04-29 12:00 | CASEMGMT ---
JUDY received orders. JUDY arranged for patient to get picked up at 1400 via cot. JUDY faxed orders and sweet pickled fruit maker time to [facility] and Jennifer with [facility]. JUDY called patient's brother Khanh and let him know patient is going to be discharged back to [facility] today and he will be picked up at 1400. Khanh asked if he can come see patient and JUDY told him that is fine. JUDY updated RN and confidential secretary. All in agreement with d/c plan. JUDY will fax negative COVID test once resulted. Plan: d/c back to [facility] under intermediate level of care. [facility] transported via cot at 1400. Chiqui Razo POURER OFF SUPERVISOR [employer]
[2021-04-29 12:06] LABS: Bedside Glucose 265 mg/dL (70-110)
--- NOTE | 2021-04-29 13:52 | NURSING ---
called and spoke with Edith, nurse at [facility], report given, transport here @ 0619
== END 2021-04-29 13:45 | disposition intermediate care facility (04) | DRG 872 ==
LOC: ED 18:47 → PCU 21:09
PROVIDERS: Internal Medicine; Nurse Practitioner Family; Admitting Provider Internal Medicine; Emergency Provider Emergency Medicine; PCP Family Medicine; Visit Provider Family Medicine
DX: A41.50 Gram-negative sepsis, unspecified (principal); A41.89 Other specified sepsis; N30.00 Acute cystitis without hematuria; I69.351 Hemiplegia and hemiparesis following cerebral infarction affecting right dominant side; J10.1 Influenza due to other identified influenza virus with other respiratory manifestations; R65.20 Severe sepsis without septic shock; I69.320 Aphasia following cerebral infarction; Z20.822 Contact with and (suspected) exposure to COVID-19; G40.909 Epilepsy, unspecified, not intractable, without status epilepticus; I25.10 Atherosclerotic heart disease of native coronary artery without angina pectoris; E11.51 Type 2 diabetes mellitus with diabetic peripheral angiopathy without gangrene; I10 Essential (primary) hypertension; E78.5 Hyperlipidemia, unspecified; R13.10 Dysphagia, unspecified; G47.30 Sleep apnea, unspecified; F32.A Depression, unspecified; F41.9 Anxiety disorder, unspecified; E66.9 Obesity, unspecified; Z93.1 Gastrostomy status; Z79.82 Long term (current) use of aspirin; Z79.4 Long term (current) use of insulin; Z79.02 Long term (current) use of antithrombotics/antiplatelets; Z79.899 Other long term (current) drug therapy
CPT/HCPCS: 36415; 71045; 71275; 80048; 80053; 80076; 81001; 82962; 83605; 83735; 84484; 85025; 87040; 87077; 87086; 87088; 87186; 87426; 87804; 93005; 93306; 97802; 99251; 99285; J7030; Q9957; Q9967; A4216; C8929; G0463; J0696

== ENCOUNTER 2021-06-21 04:30 | Emergency (ER) | payer MEDICARE, MEDICAID, SELFPAY ==
[2021-06-21 04:32] VITALS: BP 164/88; PULSE 65; RESP 18; TEMP 36.7; O2SAT 98; BMI 41.2
--- NOTE | 2021-06-21 04:53 | EDS_ITS ---
HPI History of Present Illness Chief Complaint: General Illness Narrative Narrative: Patient is a 71-year-old male from the [facility] with past medical history of stroke which is left him aphasic and need for PEG tube placement. Nursing reports that at some point yesterday the patient dislodged his PEG tube. They report that he takes food by mouth but does obtain his medications through the PEG tube route. The patient cannot offer any further history based on his previous stroke with aphasia status. Nursing reports the patient is otherwise at his baseline but with need for PEG tube replacement was sent in for evaluation [facility] Medical History Anxiety Depression Diabetes Dysphagia Hypertension Peripheral vascular disease Sleep apnea Stroke/cerebrovascular accident Home Medications gabapentin [Neurontin] 300 mg G-TUBE TIDCM 05/11/17 [History Last Taken 04/25/21] gemfibrozil 600 mg G-TUBE BIDAC 05/11/17 [History Last Taken 04/25/21] clopidogrel 75 mg G-TUBE DAILY 08/16/17 [History Last Taken 04/25/21] atorvastatin 80 mg G-TUBE QHS 10/07/17 [History Last Taken 04/24/21] ezetimibe 10 mg GT QHS 01/14/19 [History Last Taken 04/24/21] Lantus Solostar U-100 Insulin 20 units SC QHS 03/15/20 [History Last Taken 04/24/21] acetaminophen 1,000 mg FEEDING TUBE Q8H #0 tablet 03/15/20 [History Last Taken 04/25/21] cilostazol 100 mg GT BID 03/15/20 [History Last Taken 04/25/21] insulin lispro 12 unit SC TIDCM 03/15/20 [History Last Taken 04/25/21] insulin lispro See Protocol SC TIDCM 03/15/20 [History Last Taken 04/24/21] levetiracetam 500 mg GT DAILY@1200 03/15/20 [History Last Taken 04/25/21] levetiracetam 750 mg GT BID 03/15/20 [History Last Taken 04/25/21] alum-mag hydroxide-simeth [Tari-Lanta] 5 ml FEEDING TUBE TID 04/25/21 [History Last Taken 04/25/21] aspirin 81 mg FEEDING TUBE DAILY 04/25/21 [History Last Taken 04/25/21] citalopram 10 mg FEEDING TUBE DAILY 04/25/21 [History Last Taken 04/25/21] losartan 50 mg FEEDING TUBE DAILY 04/25/21 [History Last Taken 04/25/21] cefdinir 300 mg PO BID #14 cap 04/29/21 [Rx Last Taken Unknown] oseltamivir 75 mg PO BID #0 cap 04/29/21 [Rx Last Taken Unknown] Allergy/AdvReac Type Severity Reaction Status Date / Time No Known Allergies Allergy Verified 04/25/21 14:55 Social History Smoking Status: Never smoker ROS ROS ED Review of Systems ROS Unobtainable: other Details: Unable to obtain review of systems secondary to patient's previous CVA with aphasia EXAM Physical Exam Const Vital Signs: 06/21/21 04:32 Temperature 98.0 F Temperature Source Temporal Pulse Rate 65 Respiratory Rate 18 Blood Pressure 164/88 H Blood Pressure Mean 113 Pulse Ox 98 Oxygen Delivery Method Room Air Positive well nourished, well developed and obese General Appearance ED: well developed Nutritional Appearance: obese Eyes PERRL and EOMs intact bilaterally Neck supple Resp normal respiratory effort and clear to auscultation bilaterally Cardio regular rate and regular rhythm GI normal to inspection, nondistended, normoactive bowel sounds, non-tender, non- distended and no masses GI Narrative: No voluntary guarding or rigidity no pulsatile mass. Patient has a opening in the left upper quadrant of his abdomen where his previous PEG tube had been placed. There is no surrounding erythema warmth or discharge; no secondary changes to suggest infection Auscultation: normoactive bowel sounds Palpation: soft Extremity normal to inspection Neuro Neuro Narrative: Patient is awake and alert at baseline mental status. He has chronic neurologic findings from his previous stroke/CVA but no new or acute findings Psych Psych Narrative: Patient is at his baseline mental status Skin no rashes or lesions noted MDM MDM MDM Narrative Medical decision making narrative: The patient arrived to the ER at his baseline mental status with stable vital. He had no physical exam findings to suggest ileus/bowel obstruction or secondary infection. Therefore I felt no need for testing other than having the PEG tube replaced and confirmation with KUB. It was difficult to place the PEG tube and I had to dilate the stoma using a pair forceps. Following this I was able to place a 22 Zimbabwean PEG tube set at 5 cm into the abdomen. The PEG tube flushed without difficulty and there was no leakage around the stoma site. A KUB was obtained and was overall nondiagnostic in nature. Therefore I discussed the case with the radiologist and they recommend a noncontrast CT scan to confirm that the PEG tube is in the correct position. Therefore once this study is obtained and documents proper PEG tube placement patient is safe for return to the halfway. Dr. Laguna will follow the official read of the CT scan and make the final disposition Radiography Diagnostic Testing: Clinical Impression(s) from Imaging Studies KUB X-Ray 06/21/21 05:30 IMPRESSION: Left lower lobe atelectasis. Mild cardiac enlargement. PEG tube under the level of the left hemidiaphragm. Recommend correlation for placement. Limited study. Electronically Signed: Keri Bateman MD at 5:59 EST , KUB X-Ray 06/21/21 06:00 IMPRESSION: Limited study Nondiagnostic study. There is a tube overlying the left upper chest just under the hemidiaphragm on the study of June 21, 2021 and 5:26 AM. Electronically Signed: Keri Bateman MD at 6:30 EST , Discharge Plan Triage Chief Complaint: General Illness ED Provider: Tarik Noriega Dx/Rx/DC Orders Clinical Impression: PEG (percutaneous endoscopic gastrostomy) adjustment/replacement/removal Instructions: ED Feeding Tube Replacement, ED Feeding Tube Insertion Prescriptions: No Action gabapentin [Neurontin] 250 MG/5 ML solution 300 mg G-tube TIDCM RF: 0 gemfibrozil 600 MG tablet 600 mg G-tube BIDAC RF: 0 clopidogrel 75 MG tablet 75 mg G-tube DAILY RF: 0 atorvastatin 80 MG tablet 80 mg G-tube QHS RF: 0 ezetimibe 10 MG tablet 10 mg GT QHS RF: 0 levetiracetam 750 MG tablet 750 mg GT BID RF: 0 insulin lispro 100 UNIT/ML cartridge 12 unit SC TIDCM RF: 0 Lantus Solostar U-100 Insulin 100 UNITS/ML insulin pen 20 units SC QHS RF: 0 insulin lispro 100 UNIT/ML cartridge See Protocol unit SC TIDCM RF: 0 cilostazol 100 MG tablet 100 mg GT BID RF: 0 levetiracetam 500 MG tablet 500 mg GT DAILY@1200 RF: 0 acetaminophen 500 mg Tablet 1,000 mg feeding tube Q8H Qty: 0 RF: 0 losartan 50 mg tablet 50 mg feeding tube DAILY RF: 0 citalopram 10 mg tablet 10 mg feeding tube DAILY RF: 0 aspirin 81 mg Tablet,Delayed Release (Dr/Ec) 81 mg feeding tube DAILY RF: 0 alum-mag hydroxide-simeth [Tari-Lanta] 200-200-20 mg/5 mL Suspension 5 ml feeding tube TID RF: 0 oseltamivir 75 mg Capsule 75 mg PO BID Qty: 0 RF: 0 cefdinir 300 mg capsule 300 mg PO BID Qty: 14 RF: 0 Primary Care Provider: Marcin Joseph Referrals: Marcin Joseph MD [Primary Care Provider] -
--- NOTE | 2021-06-21 05:30 | RAD_ITS ---
STUDY: X-RAY - ABDOMEN/PELVIS REASON FOR EXAM: Male, 71 years old. PEG tube placement TECHNIQUE: Single AP view of the abdomen / pelvis. COMPARISON: Chest x-ray April 25, 2021 FINDINGS: Elevation of the left hemidiaphragm compared to the right side. There is minimal left lower lobe atelectasis. There is a visualized PEG tube distended the level of the left hemidiaphragm. . There are diffuse degenerative changes of the visualized lumbar spine. RAD/Abdomen Single View (Portable) IMPRESSION: Left lower lobe atelectasis. Mild cardiac enlargement. PEG tube under the level of the left hemidiaphragm. Recommend correlation for placement. Limited study. Electronically Signed: Keri Bateman MD at 5:59 EST ,
--- NOTE | 2021-06-21 06:00 | RAD_ITS ---
STUDY: X-RAY - ABDOMEN/PELVIS REASON FOR EXAM: Male, 71 years old. PEG TUBE PLACEMENT WITH GASTRO TECHNIQUE: Single AP view of the abdomen / pelvis. COMPARISON: June 21, 2021 at 5:26 AM FINDINGS: There are 2 reprocessed images demonstrating tubing overlying the left upper quadrant. RAD/Abdomen Single View IMPRESSION: Limited study Nondiagnostic study. There is a tube overlying the left upper chest just under the hemidiaphragm on the study of June 21, 2021 and 5:26 AM. Electronically Signed: Keri Bateman MD at 6:30 EST ,
--- NOTE | 2021-06-21 06:52 | CT_ITS ---
STUDY: CT ABDOMEN AND PELVIS WITHOUT CONTRAST REASON FOR EXAM: Male, 71 years old. PEG tube placement RADIATION DOSAGE (If Supplied By Facility): CTDIvol = ( 23.43 ) mGy, DLP = ( 1328.76 ) mGycm TECHNIQUE: Transaxial images were obtained from the dome of the diaphragm to the symphysis pubis without oral contrast, and without intravenous contrast. Sagittal and coronal images were reconstructed. Individualized dose optimization techniques were used for this CT. COMPARISON: CT abdomen and pelvis September 28, 2020 FINDINGS: The visualized lung bases are unremarkable. The visualized portions of the heart are within normal limits. Normal liver. Normal gallbladder and extrahepatic biliary system. Normal spleen. Normal pancreas. Normal bilateral adrenal glands. Normal right kidney. Normal left kidney. There is a small amount of injected contrast within the stomach. There is a percutaneous endogastric tube present with a small 2 cm follicle inserted in a track in the upper abdomen very similar to the prior study. There is no visualized gas outside the confines of the stomach. Contrast is in the stomach, and in the proximal small bowel. Normal small intestine. There is mild to moderate stool in the colon. There is diverticulosis without diverticulitis. The visualized wide diastases of the rectus muscle in the lower abdomen into which there is herniation of contrast in loops of small bowel and a portion of the bladder. This herniation measures at least 13 x 8 x 16 cm. The appendix is visualized and appears normal. Aorta is partially calcified. The visualized stents at the level of the bifurcation. Normal inferior vena cava. Normal retroperitoneum. Bladder is decompressed and partially herniating into the lower abdomen herniation. Normal visualized prostate gland. Normal abdominal wall. There are diffuse degenerative changes of the visualized lumbar spine. CT/Abdomen/Pelvis without Cont IMPRESSION: Percutaneous endogastric tube is in the stomach in satisfactory position in the pre-existing tract. There is contrast in the stomach without extravasation. Constipation fecal impaction Large lower abdominal wall diastases with herniation of nonobstructed small bowel and a portion of the bladder. Degenerative change of the thoracolumbar spine. Atherosclerotic disease of the aorta. Electronically Signed: Keri Bateman MD at 7:46 EST Reading Location ID and State: [facility] / [place] Tel , Service support ,
[2021-06-21 07:35] VITALS: BP 148/83; PULSE 58; RESP 16; O2SAT 97
--- NOTE | 2021-06-21 07:50 | EDS_ITS ---
HPI History of Present Illness Chief Complaint: General Illness [facility] Medical History Anxiety Depression Diabetes Dysphagia Hypertension Peripheral vascular disease Sleep apnea Stroke/cerebrovascular accident Home Medications gabapentin [Neurontin] 300 mg G-TUBE TIDCM 05/11/17 [History Last Taken 04/25/21] gemfibrozil 600 mg G-TUBE BIDAC 05/11/17 [History Last Taken 04/25/21] clopidogrel 75 mg G-TUBE DAILY 08/16/17 [History Last Taken 04/25/21] atorvastatin 80 mg G-TUBE QHS 10/07/17 [History Last Taken 04/24/21] ezetimibe 10 mg GT QHS 01/14/19 [History Last Taken 04/24/21] Lantus Solostar U-100 Insulin 20 units SC QHS 03/15/20 [History Last Taken 04/24/21] acetaminophen 1,000 mg FEEDING TUBE Q8H #0 tablet 03/15/20 [History Last Taken 04/25/21] cilostazol 100 mg GT BID 03/15/20 [History Last Taken 04/25/21] insulin lispro 12 unit SC TIDCM 03/15/20 [History Last Taken 04/25/21] insulin lispro See Protocol SC TIDCM 03/15/20 [History Last Taken 04/24/21] levetiracetam 500 mg GT DAILY@1200 03/15/20 [History Last Taken 04/25/21] levetiracetam 750 mg GT BID 03/15/20 [History Last Taken 04/25/21] alum-mag hydroxide-simeth [Tari-Lanta] 5 ml FEEDING TUBE TID 04/25/21 [History Last Taken 04/25/21] aspirin 81 mg FEEDING TUBE DAILY 04/25/21 [History Last Taken 04/25/21] citalopram 10 mg FEEDING TUBE DAILY 04/25/21 [History Last Taken 04/25/21] losartan 50 mg FEEDING TUBE DAILY 04/25/21 [History Last Taken 04/25/21] cefdinir 300 mg PO BID #14 cap 04/29/21 [Rx Last Taken Unknown] oseltamivir 75 mg PO BID #0 cap 04/29/21 [Rx Last Taken Unknown] Allergy/AdvReac Type Severity Reaction Status Date / Time No Known Allergies Allergy Verified 04/25/21 14:55 Social History Smoking Status: Never smoker EXAM Physical Exam Const Vital Signs: 06/21/21 04:32 06/21/21 07:35 Temperature 98.0 F Temperature Source Temporal Pulse Rate 65 58 L Respiratory Rate 18 16 Blood Pressure 164/88 H 148/83 H Blood Pressure Mean 113 104 Pulse Ox 98 97 Oxygen Delivery Method Room Air Room Air MDM MDM Radiography Diagnostic Testing: Clinical Impression(s) from Imaging Studies KUB X-Ray 06/21/21 05:30 IMPRESSION: Left lower lobe atelectasis. Mild cardiac enlargement. PEG tube under the level of the left hemidiaphragm. Recommend correlation for placement. Limited study. Electronically Signed: Keri Bateman MD at 5:59 EST , KUB X-Ray 06/21/21 06:00 IMPRESSION: Limited study Nondiagnostic study. There is a tube overlying the left upper chest just under the hemidiaphragm on the study of June 21, 2021 and 5:26 AM. Electronically Signed: Keri Bateman MD at 6:30 EST , Abdomen/Pelvis CT 06/21/21 06:52 IMPRESSION: Percutaneous endogastric tube is in the stomach in satisfactory position in the pre-existing tract. There is contrast in the stomach without extravasation. Constipation fecal impaction Large lower abdominal wall diastases with herniation of nonobstructed small bowel and a portion of the bladder. Degenerative change of the thoracolumbar spine. Atherosclerotic disease of the aorta. Electronically Signed: Keri Bateman MD at 7:46 EST , Discharge Plan Triage Chief Complaint: General Illness ED Provider: Tarik Noriega Dx/Rx/DC Orders Clinical Impression: PEG (percutaneous endoscopic gastrostomy) adjustment/replacement/removal Instructions: ED Feeding Tube Replacement, ED Feeding Tube Insertion Prescriptions: No Action gabapentin [Neurontin] 250 MG/5 ML solution 300 mg G-tube TIDCM RF: 0 gemfibrozil 600 MG tablet 600 mg G-tube BIDAC RF: 0 clopidogrel 75 MG tablet 75 mg G-tube DAILY RF: 0 atorvastatin 80 MG tablet 80 mg G-tube QHS RF: 0 ezetimibe 10 MG tablet 10 mg GT QHS RF: 0 levetiracetam 750 MG tablet 750 mg GT BID RF: 0 insulin lispro 100 UNIT/ML cartridge 12 unit SC TIDCM RF: 0 Lantus Solostar U-100 Insulin 100 UNITS/ML insulin pen 20 units SC QHS RF: 0 insulin lispro 100 UNIT/ML cartridge See Protocol unit SC TIDCM RF: 0 cilostazol 100 MG tablet 100 mg GT BID RF: 0 levetiracetam 500 MG tablet 500 mg GT DAILY@1200 RF: 0 acetaminophen 500 mg Tablet 1,000 mg feeding tube Q8H Qty: 0 RF: 0 losartan 50 mg tablet 50 mg feeding tube DAILY RF: 0 citalopram 10 mg tablet 10 mg feeding tube DAILY RF: 0 aspirin 81 mg Tablet,Delayed Release (Dr/Ec) 81 mg feeding tube DAILY RF: 0 alum-mag hydroxide-simeth [Tari-Lanta] 200-200-20 mg/5 mL Suspension 5 ml feeding tube TID RF: 0 oseltamivir 75 mg Capsule 75 mg PO BID Qty: 0 RF: 0 cefdinir 300 mg capsule 300 mg PO BID Qty: 14 RF: 0 Primary Care Provider: Marcin Joseph Referrals: Marcin Joseph MD [Primary Care Provider] -
[2021-06-21 08:16] VITALS: BP 148/87; PULSE 58; RESP 16; O2SAT 97
--- NOTE | 2021-06-21 08:16 | ED.RN ---
THIS RN CALLED REPORTS BACK TO [facility].
== END 2021-06-21 23:59 | disposition skilled nursing facility (03) ==
PROVIDERS: Emergency Provider Emergency Medicine; PCP Family Medicine; Visit Provider Emergency Medicine
DX: K94.23 Gastrostomy malfunction (principal); E11.51 Type 2 diabetes mellitus with diabetic peripheral angiopathy without gangrene; Z79.4 Long term (current) use of insulin; I10 Essential (primary) hypertension; I69.320 Aphasia following cerebral infarction; R13.10 Dysphagia, unspecified; F32.A Depression, unspecified; F41.9 Anxiety disorder, unspecified; E66.9 Obesity, unspecified; Z79.02 Long term (current) use of antithrombotics/antiplatelets; Z79.82 Long term (current) use of aspirin
CPT/HCPCS: 74018; 74176; 99284

== ENCOUNTER 2021-10-28 09:35 | Day surgery (SDC) | payer MEDICARE, OTHER, MEDICAID, SELFPAY ==
[2021-10-28] VITALS (8 sets, daily range): BP systolic 150–159; BP diastolic 69–86; PULSE 63–68; RESP 16–18; TEMP 35.9–36.5; O2SAT 95–97; BMI 41.9
--- NOTE | 2021-10-28 10:37 | EX.ED.DYSGE1 ---
HPI History of Present Illness Chief Complaint: Other, Pain/Inj Informant: patient Narrative Narrative: Reportedly the patient's PEG tube. Patient has global aphasia but can nod his head yes and no. Per prior visits this appears to been put in in 2017. The old PEG did not come with the patient [facility] Medical History (Updated 10/28/21 @ 11:[address] Humza Hamlin, DO) Anxiety Apraxia Convulsions Depression Diabetes Dysphagia Encounter for attention to gastrostomy Heart disease Hemiplegia Hyperlipemia Hypertension PEG (percutaneous endoscopic gastrostomy) adjustment/replacement/removal Peripheral vascular disease Sleep apnea Stroke/cerebrovascular accident Home Medications gabapentin 250 mg/5 mL oral solution (Neurontin) 300 mg G-tube TIDCM Neuropathy 05/11/17 [History Last Taken 04/25/21] gemfibrozil 600 mg tablet 600 mg G-tube BIDAC CHOLESTEROL 05/11/17 [History Last Taken 04/25/21] clopidogrel 75 mg tablet 75 mg G-tube DAILY Blood thinner 08/16/17 [History Last Taken 04/25/21] atorvastatin 80 mg tablet 80 mg G-tube QHS Cholesterol 10/07/17 [History Last Taken 04/24/21] ezetimibe 10 mg tablet 10 mg GT QHS CHOLESTEROL 01/14/19 [History Last Taken 04/24/21] acetaminophen 500 mg tablet 1,000 mg feeding tube Q8H PAIN ##0 03/15/20 [History Last Taken 04/25/21] cilostazol 100 mg tablet 100 mg GT BID PAD 03/15/20 [History Last Taken 04/25/21] insulin glargine 100 unit/mL (3 mL) subcutaneous pen (Lantus Solostar U-100 Insulin) 20 units subcut QHS DM 03/15/20 [History Last Taken 04/24/21] insulin lispro 100 unit/mL subcutaneous cartridge 12 unit subcut TIDCM DM 03/15/20 [History Last Taken 04/25/21] insulin lispro 100 unit/mL subcutaneous cartridge See Protocol SC TIDCM DM 03/15/20 [History Last Taken 04/24/21] levetiracetam 500 mg tablet 500 mg GT DAILY@1200 SEIZURES 03/15/20 [History Last Taken 04/25/21] levetiracetam 750 mg tablet 750 mg GT BID SEIZURES 03/15/20 [History Last Taken 04/25/21] aspirin 81 mg tablet,delayed release 81 mg feeding tube DAILY CAD 04/25/21 [History Last Taken 04/25/21] citalopram 10 mg tablet 10 mg feeding tube DAILY DEPRESSION 04/25/21 [History Last Taken 04/25/21] losartan 50 mg tablet 50 mg feeding tube DAILY HTN 04/25/21 [History Last Taken 04/25/21] acetaminophen 650 mg/20.3 mL oral suspension 650 mg PO Q4H PRN PAIN/FEVER 10/28/21 [History Last Taken Unknown] albuterol sulfate 90 mcg/actuation aerosol inhaler (Ventolin HFA) 1 puff inhalation Q2H PRN SOB 10/28/21 [History Last Taken Unknown] aluminum-mag hydroxide-simethicone 200 mg-200 mg-20 mg/5 mL oral susp (Tari-Lanta) 10 ml feeding tube TID PRN BLOATING 10/28/21 [History Last Taken Unknown] bisacodyl 10 mg rectal suppository 10 mg ME DAILY PRN Constipation 10/28/21 [History Last Taken Unknown] guaifenesin 200 mg/5 mL oral liquid 400 mg PO Q4H PRN Cough 10/28/21 [History Last Taken Unknown] loperamide 2 mg capsule 2 mg PO Q2H PRN Diarrhea 10/28/21 [History Last Taken Unknown] magnesium hydroxide 400 mg/5 mL oral suspension (Milk of Magnesia) 30 ml PO DAILY PRN Constipation 10/28/21 [History Last Taken Unknown] sodium phosphates 19 gram-7 gram/118 mL enema (Enema) 118 ml ME DAILY PRN Constipation 10/28/21 [History Last Taken Unknown] Allergy/AdvReac Type Severity Reaction Status Date / Time No Known Allergies Allergy Verified 10/28/21 09:43 Social History (Updated 10/28/21 @ 10:[address] Humza Hamlin, DO) Smoking Status: Never smoker substance use type: does not use ROS ROS ED Review of Systems ROS Unobtainable: other Details: Global aphasia EXAM Physical Exam Const Vital Signs: 10/28/21 09:35 10/28/21 09:42 Temperature 96.6 F L Temperature Source Temporal Pulse Rate 64 Respiratory Rate 18 Respiratory Effort Normal Non-Labored Blood Pressure 156/69 H Blood Pressure Mean 98 Pulse Ox 96 Oxygen Delivery Method Room Air Positive well nourished, well developed and obese General Appearance ED: well developed Nutritional Appearance: obese HEENT Reports normocephalic, head/scalp atraumatic and moist mucous membranes Eyes PERRL and EOMs intact bilaterally Neck no lymphadenopathy, supple and no JVD Resp normal respiratory effort and clear to auscultation bilaterally Cardio regular rate, regular rhythm and no murmurs GI normal to inspection, nondistended, normoactive bowel sounds and non-tender GI Narrative: There is a well-healed stoma. Palpation: soft Back/Spine no CVA tenderness and normal ROM Extremity normal to inspection General Extremety ED: Negative for edema General Extremity: Negative for edema Neuro Sensorium / Orientation: alert Motor Exam: strength 5/5 throughout Psych mental status grossly normal Mood & Affect: Negative for depressed or tearful Skin no rashes or lesions noted and no wounds MDM MDM MDM Narrative Medical decision making narrative: I attempted to pass a 20 Tunisian PEG tube was unsuccessful. I was unable to pass a 16 Tunisian Mckeon. A power station operator Dr. Webster attempted was also unsuccessful. I contacted general surgery Dr. Duncan who will take the patient to outpatient surgery. Discharge Plan Dx/Rx/DC Orders Clinical Impression: PEG (percutaneous endoscopic gastrostomy) adjustment/replacement/removal Disposition Disposition: Acute Care Hospital [facility]
--- NOTE | 2021-10-28 11:31 | ED.RN ---
Left a voicemail for Khanh Blakely to get a verbal permission to treat patient.
[2021-10-28 11:54] LABS: Absolute Lymphocyte Count 2.06 X10^3/uL (0.83-4.51); Absolute Neutrophil Count 5.2 X10^3/uL (2.0-7.7); Basophil# 0.08 X10^3/uL; Basophil% 0.9 % (0-1); Eosinophil# 0.24 X10^3/uL; Eosinophils% 2.8 % (0-5); Hematocrit 42.8 % (40-54); Hemoglobin 14.4 g/dL (13.0-16.5); Lymphocyte # 2.06 X10^3/ul (0.83-4.51); Lymphocyte % 23.9 % (19-41); Mean Corp Hgb Conc 33.6 g/dL (32-36); Mean Platelet Vol. 9.4 fl (6.2-12.0); Monocyte# 0.98 X10^3/uL; Monocyte% 11.4 % (0-10); NRBC Flagged by Analyzer 0 % (0-5); Neutrophil # 5.24 X10^3/uL (2.7-7.7); Neutrophil % 60.9 % (47-70); Platelet Count 222 K/mm3 (150-450); RBC Distribution Width CV 12.9 % (11.6-14.6); RBC Distribution Width SD 43.3 fl (35.1-43.9); Red Blood Count 4.65 M/mm3 (4.6-6.2); White Blood Count 8.6 K/mm3 (4.4-11.0)
[2021-10-28 12:09] LABS: Anion Gap 1 (5-15); BUN 14 mg/dL (7-18); BUN/Creat Ratio 16.8 RATIO (10-20); Calcium,Total 8.7 mg/dL (8.5-10.1); Chloride 108 mmol/L (98-107); Creatinine, Serum 0.83 mg/dL (0.70-1.30); EST Glomerular Filtration Rate 97 mL/min (>60); Est Glom Filt Rate - Afr Amer 118 mL/min (>60); Estimated Creatinine Clearance 81.27 ml/min; Glucose 209 mg/dL (74-106); Potassium 4.4 mmol/L (3.5-5.1); Sodium Level 140 mmol/L (136-145)
--- NOTE | 2021-10-28 13:39 | OP.CCLET_ITS ---
10/28/2021 Marcin Joseph MD [address] [phone] Re : Upper GI endoscopy procedure for Loc Blakely Dear Dr. Joseph This procedure was performed on Thursday, October 28, 2021. My impressions and recommendations are as follows: Impressions : - Normal esophagus. - Bleeding secondary to a maneuver in the greater curvature of the stomach. - Normal duodenal bulb. No specimens collected. - An externally removable PEG placement was successfully completed. Recommendations : - Patient has a contact number available for emergencies. The signs and symptoms of potential delayed complications were discussed with the patient. Return to normal activities tomorrow. Written discharge instructions were provided to the patient. - Resume previous diet. - Continue present medications. - Repeat upper endoscopy is not recommended. - Return to primary care physician PRN. My findings are described in the full procedure note, which is enclosed. If I can be of further assistance, please feel free to contact me at Doctor phone number(s): , Work: . Sincerely, MD Humza Venegas MD 10/28/2021 1:39:14 PM This report has been signed electronically.
--- NOTE | 2021-10-28 13:39 | OP.EGD_ITS ---
Patient Name: Loc Blakely Procedure Date: 10/28/2021 1:14 PM Date of : 1950 Age: 71 Procedure: Upper GI endoscopy Indications: Place PEG Providers: Humza Duncan MD Medicines: See the Anesthesia note for documentation of the administered medications Patient Profile: This is a 71 year old male. Refer to note in patient chart for documentation of history and physical. Complications: No immediate complications. Estimated blood loss: None. Procedure: Pre-Anesthesia Assessment: - Prior to the procedure, a History and Physical was performed, and patient medications and allergies were reviewed. The patient's tolerance of previous anesthesia was also reviewed. The risks and benefits of the procedure and the sedation options and risks were discussed with the patient. All questions were answered, and informed consent was obtained. Prior Anticoagulants: The patient has taken no previous anticoagulant or antiplatelet agents. ASA Grade Assessment: III - A patient with severe systemic disease. After reviewing the risks and benefits, the patient was deemed in satisfactory condition to undergo the procedure. After obtaining informed consent, the endoscope was passed under direct vision. Throughout the procedure, the patient's blood pressure, pulse, and oxygen saturations were monitored continuously. The Endoscope was introduced through the mouth, and advanced to the duodenal bulb. The upper GI endoscopy was accomplished without difficulty. The patient tolerated the procedure well. Scope In: 1:23:43 PM Scope Out: 1:28:57 PM Total Procedure Duration Time 0 hours 5 minutes 14 seconds Findings: The examined esophagus was normal. Bleeding secondary to a maneuver was found on the greater curvature of the stomach. Placement of an externally removable PEG with no T-fasteners was successfully completed. The external bumper was at the 3.5 cm marking on the tube. The duodenal bulb was normal. No biopsies or other specimens were collected for this exam. Impression: - Normal esophagus. - Bleeding secondary to a maneuver in the greater curvature of the stomach. - Normal duodenal bulb. No specimens collected. - An externally removable PEG placement was successfully completed. Recommendation: - Patient has a contact number available for emergencies. The signs and symptoms of potential delayed complications were discussed with the patient. Return to normal activities tomorrow. Written discharge instructions were provided to the patient. - Resume previous diet. - Continue present medications. - Repeat upper endoscopy is not recommended. - Return to primary care physician PRN. Procedure Code(s): --- Professional --- 06366, Esophagogastroduodenoscopy, flexible, transoral; with directed placement of percutaneous gastrostomy tube Diagnosis Code(s): --- Professional --- K92.2, Gastrointestinal hemorrhage, unspecified Z43.1, Encounter for attention to gastrostomy CPT copyright 2017 [employer]. All rights reserved. The codes documented in this report are preliminary and upon label coder review may be revised to meet current compliance requirements. MD Humza Venegas MD 10/28/2021 1:39:14 PM This report has been signed electronically. Number of Addenda: 0 Note Initiated On: 10/28/2021 1:14 PM
--- NOTE | 2021-10-28 13:42 | EX.PCM.CON.S ---
Assessment & Plan Assessment/Plan (1) PEG (percutaneous endoscopic gastrostomy) adjustment/replacement/removal: PLAN: My plan is to replace the PEG tube via endoscopic techniques. Consent was obtained from the brother reviewing bleeding infection and possible need for further surgeries he is willing to proceed. HPI Consult Data Date of Consult: 10/28/21 HPI Narrative HPI Narrative: JUANY MCDOWELL, is a 71 M who presents Reportedly the patient's PEG tube.? Patient has global aphasia but can nod his head yes and no.? Per prior visits this appears to been put in in 2017.? The old PEG did not come with the patient [facility] Medical History Anxiety Apraxia Convulsions Depression Diabetes Dysphagia Encounter for attention to gastrostomy Heart disease Hemiplegia Hyperlipemia Hypertension PEG (percutaneous endoscopic gastrostomy) adjustment/replacement/removal Peripheral vascular disease Sleep apnea Stroke/cerebrovascular accident Home Medications gabapentin 250 mg/5 mL oral solution (Neurontin) 300 mg G-tube TIDCM Neuropathy 05/11/17 [History Last Taken 04/25/21] gemfibrozil 600 mg tablet 600 mg G-tube BIDAC CHOLESTEROL 05/11/17 [History Last Taken 04/25/21] clopidogrel 75 mg tablet 75 mg G-tube DAILY Blood thinner 08/16/17 [History Last Taken 04/25/21] atorvastatin 80 mg tablet 80 mg G-tube QHS Cholesterol 10/07/17 [History Last Taken 04/24/21] ezetimibe 10 mg tablet 10 mg GT QHS CHOLESTEROL 01/14/19 [History Last Taken 04/24/21] acetaminophen 500 mg tablet 1,000 mg feeding tube Q8H PAIN ##0 03/15/20 [History Last Taken 04/25/21] cilostazol 100 mg tablet 100 mg GT BID PAD 03/15/20 [History Last Taken 04/25/21] insulin glargine 100 unit/mL (3 mL) subcutaneous pen (Lantus Solostar U-100 Insulin) 20 units subcut QHS DM 03/15/20 [History Last Taken 04/24/21] insulin lispro 100 unit/mL subcutaneous cartridge 12 unit subcut TIDCM DM 03/15/20 [History Last Taken 04/25/21] insulin lispro 100 unit/mL subcutaneous cartridge See Protocol SC TIDCM DM 03/15/20 [History Last Taken 04/24/21] levetiracetam 500 mg tablet 500 mg GT DAILY@1200 SEIZURES 03/15/20 [History Last Taken 04/25/21] levetiracetam 750 mg tablet 750 mg GT BID SEIZURES 03/15/20 [History Last Taken 04/25/21] aspirin 81 mg tablet,delayed release 81 mg feeding tube DAILY CAD 04/25/21 [History Last Taken 04/25/21] citalopram 10 mg tablet 10 mg feeding tube DAILY DEPRESSION 04/25/21 [History Last Taken 04/25/21] losartan 50 mg tablet 50 mg feeding tube DAILY HTN 04/25/21 [History Last Taken 04/25/21] acetaminophen 650 mg/20.3 mL oral suspension 650 mg PO Q4H PRN PAIN/FEVER 10/28/21 [History Last Taken Unknown] albuterol sulfate 90 mcg/actuation aerosol inhaler (Ventolin HFA) 1 puff inhalation Q2H PRN SOB 10/28/21 [History Last Taken Unknown] aluminum-mag hydroxide-simethicone 200 mg-200 mg-20 mg/5 mL oral susp (Tari-Lanta) 10 ml feeding tube TID PRN BLOATING 10/28/21 [History Last Taken Unknown] bisacodyl 10 mg rectal suppository 10 mg OH DAILY PRN Constipation 10/28/21 [History Last Taken Unknown] guaifenesin 200 mg/5 mL oral liquid 400 mg PO Q4H PRN Cough 10/28/21 [History Last Taken Unknown] loperamide 2 mg capsule 2 mg PO Q2H PRN Diarrhea 10/28/21 [History Last Taken Unknown] magnesium hydroxide 400 mg/5 mL oral suspension (Milk of Magnesia) 30 ml PO DAILY PRN Constipation 10/28/21 [History Last Taken Unknown] sodium phosphates 19 gram-7 gram/118 mL enema (Enema) 118 ml OH DAILY PRN Constipation 10/28/21 [History Last Taken Unknown] Allergy/AdvReac Type Severity Reaction Status Date / Time No Known Allergies Allergy Verified 10/28/21 09:43 Social History Smoking Status: Never smoker substance use type: does not use ROS ROS Narrative Not able to obtain Review of Systems ROS Unobtainable: due to mental status Physical Exam Const no apparent distress, healthy appearing and well nourished Resp clear to auscultation bilaterally Cardio Rate: regular rate Rhythm: regular rhythm GI soft to palpation and non-tender GI Narrative: Old PEG tube site is identified and appears viable. Lab / Micro Data Result Diagrams: 10/28/21 11:40 10/28/21 11:40 Labs: Laboratory Results - last 24 hr 10/28/21 11:40: WBC 8.6, RBC 4.65, Hgb 14.4, Hct 42.8, MCV 92.0, MCH 31.0, MCHC 33.6, RDW Std Deviation 43.3, RDW Coeff of Corinne 12.9, Plt Count 222, MPV 9.4, Immature Gran % (Auto) 0.100, Neut % (Auto) 60.9, Lymph % (Auto) 23.9, [place] % (Auto) 11.4 H, Eos % (Auto) 2.8, Baso % (Auto) 0.9, Absolute Neuts (auto) 5.2, Absolute Lymphs (auto) 2.06, Nucleated RBC % 0 10/28/21 11:40: Sodium 140, Potassium 4.4, Chloride 108 H, Carbon Dioxide 31.0, Anion Gap 1 L, BUN 14, Creatinine 0.83, Estim Creat Clear Calc 81.27, Est GFR (MDRD) Af Amer 118, Est GFR (MDRD) Non-Af 97, BUN/Creatinine Ratio 16.8, Glucose 209 H, Calcium 8.7
== END 2021-10-28 15:39 | disposition home or self-care (01) ==
LOC: ED 11:31 → SDC 11:37 → ACINP 11:38 → AC 12:12
PROVIDERS: Emergency Provider Emergency Medicine; PCP Family Medicine; Visit Provider Surgery
PROC: 0DJ08ZZ Inspection of Upper Intestinal Tract, Via Natural or Artificial Opening Endoscopic (ICD-10-PCS; CPT 43235; principal; 2021-10-28 12:25)
DX: Z43.1 Encounter for attention to gastrostomy (principal); K92.2 Gastrointestinal hemorrhage, unspecified; E11.9 Type 2 diabetes mellitus without complications; I10 Essential (primary) hypertension; E78.5 Hyperlipidemia, unspecified; G81.90 Hemiplegia, unspecified affecting unspecified side; R47.01 Aphasia; F32.A Depression, unspecified; F41.9 Anxiety disorder, unspecified; E66.9 Obesity, unspecified; Z79.4 Long term (current) use of insulin; Z79.82 Long term (current) use of aspirin; Z79.02 Long term (current) use of antithrombotics/antiplatelets; Z79.890 Hormone replacement therapy; Z79.899 Other long term (current) drug therapy
CPT/HCPCS: 43246; 80048; 85025; 99285; J7030; A4216; J2405

== ENCOUNTER 2022-05-07 06:08 | Emergency (ER) | payer MEDICARE, OTHER, MEDICAID, SELFPAY ==
[2022-05-07 06:09] VITALS: BP 114/60; PULSE 103; RESP 23; TEMP 38.7; O2SAT 91; BMI 43.4
--- NOTE | 2022-05-07 06:16 | EDS_ITS ---
HPI History of Present Illness Chief Complaint: Fever Informant: patient, EMS and SNF Narrative Narrative: Patient sent in from [facility] secondary to fever and altered mental status. He states he noted a fever yesterday up to 102. They state that he is not as alert as normal. Patient has had a prior stroke and has aphasia and hemiplegia. They reportedly did a COVID test at the facility that was negative. He is normally on 2 L of oxygen at baseline and had to be turned up to 4 L. Patient does report that he has had a cough. [facility] Medical History Anxiety Aphasia Apraxia Convulsions Depression Diabetes Dysphagia Encounter for attention to gastrostomy Heart disease Hemiplegia Hyperlipemia Hypertension PEG (percutaneous endoscopic gastrostomy) adjustment/replacement/removal Peripheral vascular disease Sleep apnea Stroke/cerebrovascular accident Home Medications gabapentin 250 mg/5 mL oral solution (Neurontin) 300 mg G-tube TIDCM Neuropathy 05/11/17 [History Last Taken 04/25/21] gemfibrozil 600 mg tablet 600 mg G-tube BIDAC CHOLESTEROL 05/11/17 [History Last Taken 04/25/21] clopidogrel 75 mg tablet 75 mg G-tube DAILY Blood thinner 08/16/17 [History Last Taken 04/25/21] atorvastatin 80 mg tablet 80 mg G-tube QHS Cholesterol 10/07/17 [History Last Taken 04/24/21] ezetimibe 10 mg tablet 10 mg GT QHS CHOLESTEROL 01/14/19 [History Last Taken 04/24/21] acetaminophen 500 mg tablet 1,000 mg feeding tube Q8H PAIN ##0 03/15/20 [History Last Taken 04/25/21] cilostazol 100 mg tablet 100 mg GT BID PAD 03/15/20 [History Last Taken 04/25/21] insulin glargine 100 unit/mL (3 mL) subcutaneous pen (Lantus Solostar U-100 Insulin) 20 units subcut QHS DM 03/15/20 [History Last Taken 04/24/21] insulin lispro 100 unit/mL subcutaneous cartridge 12 unit subcut TIDCM DM 03/15/20 [History Last Taken 04/25/21] insulin lispro 100 unit/mL subcutaneous cartridge See Protocol SC TIDCM DM 03/15/20 [History Last Taken 04/24/21] levetiracetam 500 mg tablet 500 mg GT DAILY@1200 SEIZURES 03/15/20 [History Last Taken 04/25/21] levetiracetam 750 mg tablet 750 mg GT BID SEIZURES 03/15/20 [History Last Taken 04/25/21] aspirin 81 mg tablet,delayed release 81 mg feeding tube DAILY CAD 04/25/21 [History Last Taken 04/25/21] citalopram 10 mg tablet 10 mg feeding tube DAILY DEPRESSION 04/25/21 [History Last Taken 04/25/21] losartan 50 mg tablet 50 mg feeding tube DAILY HTN 04/25/21 [History Last Taken 04/25/21] acetaminophen 650 mg/20.3 mL oral suspension 650 mg PO Q4H PRN PAIN/FEVER 10/28/21 [History Last Taken Unknown] albuterol sulfate 90 mcg/actuation aerosol inhaler (Ventolin HFA) 1 puff inhalation Q2H PRN SOB 10/28/21 [History Last Taken Unknown] aluminum-mag hydroxide-simethicone 200 mg-200 mg-20 mg/5 mL oral susp (Tari- Lanta) 10 ml feeding tube TID PRN BLOATING 10/28/21 [History Last Taken Unknown] bisacodyl 10 mg rectal suppository 10 mg AK DAILY PRN Constipation 10/28/21 [History Last Taken Unknown] guaifenesin 200 mg/5 mL oral liquid 400 mg PO Q4H PRN Cough 10/28/21 [History Last Taken Unknown] loperamide 2 mg capsule 2 mg PO Q2H PRN Diarrhea 10/28/21 [History Last Taken Unknown] magnesium hydroxide 400 mg/5 mL oral suspension (Milk of Magnesia) 30 ml PO DAILY PRN Constipation 10/28/21 [History Last Taken Unknown] sodium phosphates 19 gram-7 gram/118 mL enema (Enema) 118 ml AK DAILY PRN Constipation 10/28/21 [History Last Taken Unknown] cephalexin 250 mg/5 mL oral suspension 500 mg (10 mL) G-tube Q12H 7 days #140 mL 05/07/22 [Rx Last Taken Unknown] oseltamivir 6 mg/mL oral suspension (Tamiflu) 75 mg (12.5 mL) feeding tube BID 5 days #125 mL 05/07/22 [Rx Last Taken Unknown] Allergy/AdvReac Type Severity Reaction Status Date / Time No Known Allergies Allergy Verified 10/28/21 09:43 Social History Smoking Status: Never smoker substance use type: does not use ROS ROS ED ROS Narrative Review of systems limited secondary to patient's aphasia. Constitutional Constitutional ED: Reports fever(s); Denies chills Eyes Eyes: Denies discharge from eye(s) ENT ENT ED: Denies discharge from eye(s), rhinorrhea or sore throat Cardiovascular Cardiovascular: Denies chest pain Respiratory/Chest Respiratory/Chest: Reports cough and dyspnea Gastrointestinal Gastrointestinal: Denies abdominal pain or vomiting Musculoskeletal Musculoskeletal: Denies extremity pain Integumentary Denies Abrasions or rash Neurologic Neurologic: Reports weakness; Denies headache(s) Allergic/Immunologic Allergic/Immunologic ED: Denies lip swelling or urticaria EXAM Physical Exam Const Vital Signs: 05/07/22 06:09 05/07/22 07:46 Temperature 101.7 F H 98 F Temperature Source Oral Temporal Pulse Rate 103 H 96 Respiratory Rate 23 H 26 H Blood Pressure 114/60 116/65 Blood Pressure Mean 78 82 Pulse Ox 91 95 Oxygen Delivery Method Nasal Cannula Oxygen Flow Rate (L/min) 4 Positive well nourished and well developed General Appearance ED: well developed HEENT Reports normocephalic and head/scalp atraumatic Eyes PERRL and EOMs intact bilaterally Neck supple Chest Wall inspection of chest normal and palpation of chest normal Resp Resp Narrative: Mild tachypnea with rales in the bilateral bases. Cardio regular rhythm Rate: tachycardic GI normal to inspection, nondistended, normoactive bowel sounds and non-tender Palpation: soft Extremity normal to inspection Neuro Neuro Narrative: Hemiplegia and aphasia secondary to prior stroke. Sensorium / Orientation: alert Psych mental status grossly normal Skin no rashes or lesions noted MDM MDM MDM Narrative Medical decision making narrative: Lab work obtained along with chest x-ray and urinalysis. Blood and urine cultures obtained. Swab for COVID and influenza ordered. Lab Data Attestation: I reviewed the patient's lab results. Labs: Laboratory Results - last 24 hr 05/07/22 05/07/22 05/07/22 06:30 06:30 06:30 WBC 8.9 RBC 4.36 L Hgb 13.5 Hct 40.5 MCV 92.9 MCH 31.0 MCHC 33.3 RDW Std Deviation 47.5 H RDW Coeff of Corinne 13.9 Plt Count 215 MPV 9.2 Immature Gran % (Auto) 0.500 Neut % (Auto) 83.5 H Lymph % (Auto) 4.4 L [place] % (Auto) 10.3 H Eos % (Auto) 0.7 Baso % (Auto) 0.6 Absolute Neuts (auto) 7.4 Absolute Lymphs (auto) 0.39 L Nucleated RBC % 0 Sodium 139 Potassium 4.2 Chloride 104 Carbon Dioxide 28.0 Anion Gap 7 BUN 19 H Creatinine 1.05 Estim Creat Clear Calc 64.24 Est GFR (MDRD) Af Amer 90 Est GFR (MDRD) Non-Af 74 BUN/Creatinine Ratio 18.1 Glucose 208 H Lactic Acid 1.7 Calcium 8.5 Total Bilirubin 0.50 Direct Bilirubin 0.15 AST 22 ALT 30 Alkaline Phosphatase 92 Total Protein 6.9 Albumin 3.4 Globulin 3.5 Urine Color Urine Clarity Urine pH Ur Specific [place] Urine Protein Urine Glucose (UA) Urine Ketones Urine Occult Blood Urine Nitrite Urine Bilirubin Urine Urobilinogen Ur Leukocyte Esterase Urine RBC Urine WBC Ur Squamous Epith Cells Urine Bacteria Urine Mucus 05/07/22 07:30 WBC RBC Hgb Hct MCV MCH MCHC RDW Std Deviation RDW Coeff of Corinne Plt Count MPV Immature Gran % (Auto) Neut % (Auto) Lymph % (Auto) [place] % (Auto) Eos % (Auto) Baso % (Auto) Absolute Neuts (auto) Absolute Lymphs (auto) Nucleated RBC % Sodium Potassium Chloride Carbon Dioxide Anion Gap BUN Creatinine Estim Creat Clear Calc Est GFR (MDRD) Af Amer Est GFR (MDRD) Non-Af BUN/Creatinine Ratio Glucose Lactic Acid Calcium Total Bilirubin Direct Bilirubin AST ALT Alkaline Phosphatase Total Protein Albumin Globulin Urine Color Yellow Urine Clarity Sl. Cloudy Urine pH 6.5 Ur Specific [place] 1.015 Urine Protein 30 H Urine Glucose (UA) Normal Urine Ketones Negative Urine Occult Blood Negative Urine Nitrite Positive H Urine Bilirubin Negative Urine Urobilinogen Normal Ur Leukocyte Esterase 100 H Urine RBC 0 SEEN Urine WBC 10-25 SEEN Ur Squamous Epith Cells 0-5 SEEN Urine Bacteria 2+ Urine Mucus 0 SEEN Radiography Chest X-Ray - ED: 1 View, Read by ED Physician and Chronic Changes Diagnostic Testing: Clinical Impression(s) from Imaging Studies Chest X-Ray 05/07/22 07:09 IMPRESSION: Hazy left lower lobe opacities, may represent atelectasis or infection. Electronically Signed: Oscar Robertson MD at 7:33 EST , EKG Initial EKG: Attestation: I personally reviewed and interpreted this EKG as follows: Interpretation: Sinus Tachycardia (Sinus tach at 103 with occasional PVCs. No acute ischemia.) Treatment and Re-Evaluation Narrative: CBC reveals normal white count. Slight left shift with 83% neutrophils appreciated. Chemistry studies unremarkable. Renal function is normal. Lactic acid is normal at 1.7. LFTs are unremarkable. Urinalysis reveals 10-25 white cells with 2+ bacteria. Nitrites are positive. Chest x-ray per my interpretation reveals chronic changes. Radiology feels there is some haziness in the left lower lobe which may represent atelectasis or infection. COVID test is negative. Influenza test is positive for influenza B. At this time patient is maintaining O2 sat between 91 and 95% on 3 L nasal cannula. I spoke with Dr. Joseph. Patient can go back to ECF with Tamiflu and isolation. I will also cover him with Keflex for his UTI as his last 2 urine cultures have been sensitive to this. If blood or urine cultures reveal any other changes patient will be called and changes will be made. Discharge Plan Triage Chief Complaint: Fever ED Provider: Sherry Hagen Dx/Rx/DC Orders Clinical Impression: Influenza B, UTI (urinary tract infection) Instructions: ED Influenza (Adult), ED Bladder Infection, Male (Adult) Prescriptions: New cephalexin 250 mg/5 mL suspension for reconstitution 500 mg G-tube Q12H 7 Days Qty: 140 0RF oseltamivir [Tamiflu] 6 mg/mL suspension for reconstitution 75 mg feeding tube BID 5 Days Qty: 125 0RF No Action gabapentin [Neurontin] 250 MG/5 ML solution 300 mg G-tube TIDCM Label Comments: Neuropathy gemfibrozil 600 MG tablet 600 mg G-tube BIDAC clopidogrel 75 MG tablet 75 mg G-tube DAILY Label Comments: Blood thinner atorvastatin 80 MG tablet 80 mg G-tube QHS Label Comments: Cholesterol ezetimibe 10 MG tablet 10 mg GT QHS levetiracetam 750 MG tablet 750 mg GT BID insulin lispro 100 UNIT/ML cartridge 12 unit SC TIDCM insulin glargine [Lantus Solostar U-100 Insulin] 100 UNITS/ML insulin pen 20 units SC QHS insulin lispro 100 UNIT/ML cartridge See Protocol SC TIDCM Protocol: 6. Sliding Scale Insulin Custom Condition: mg/dl range Dose/Route: Number of Units Condition: 151-200 Dose/Route: 2 Condition: 201-250 Dose/Route: 4 Condition: 251-300 Dose/Route: 6 Condition: 301-350 Dose/Route: 8 Condition: 351-400 Dose/Route: 10 Condition: 401-600 Dose/Route: 12 Instruction: CALL Protocol Text: Custom Sliding Scale cilostazol 100 MG tablet 100 mg GT BID levetiracetam 500 MG tablet 500 mg GT DAILY@1200 acetaminophen 500 mg Tablet 1,000 mg feeding tube Q8H Qty: 0 losartan 50 mg tablet 50 mg feeding tube DAILY citalopram 10 mg tablet 10 mg feeding tube DAILY aspirin 81 mg Tablet,Delayed Release (Dr/Ec) 81 mg feeding tube DAILY loperamide 2 mg Capsule 2 mg PO Q2H PRN (Reason: Diarrhea) Rx Instructions: administer after each loose stool until symptoms controlled; do not exceed 8 mg per 24 hrs magnesium hydroxide [Milk of Magnesia] 400 mg/5 mL Suspension 30 ml PO DAILY PRN (Reason: Constipation) bisacodyl 10 mg Suppository 10 mg AK DAILY PRN (Reason: Constipation) Enema 19-7 gram/118 mL Enema 118 ml AK DAILY PRN (Reason: Constipation) alum-mag hydroxide-simeth [Tari-Lanta] 200-200-20 mg/5 mL Suspension 10 ml feeding tube TID PRN (Reason: BLOATING) albuterol sulfate [Ventolin HFA] 90 mcg/actuation Hfa Aerosol Inhaler 1 puff INHALATION Q2H PRN (Reason: SOB) guaifenesin 200 mg/5 mL Liquid 400 mg PO Q4H PRN (Reason: Cough) acetaminophen 650 mg/20.3 mL Suspension 650 mg PO Q4H PRN (Reason: PAIN/FEVER) Primary Care Provider: Marcin Joseph Referrals: Marcin Joseph MD [Primary Care Provider] - 3-5 Days Disposition Disposition: [facility] Facility Discharge Location: [facility]
[2022-05-07 06:52] LABS: Absolute Lymphocyte Count 0.39 X10^3/uL (0.83-4.51); Absolute Neutrophil Count 7.4 X10^3/uL (2.0-7.7); Basophil# 0.05 X10^3/uL; Basophil% 0.6 % (0-1); Eosinophil# 0.06 X10^3/uL; Eosinophils% 0.7 % (0-5); Hematocrit 40.5 % (40-54); Hemoglobin 13.5 g/dL (13.0-16.5); Lymphocyte # 0.39 X10^3/ul (0.83-4.51); Lymphocyte % 4.4 % (19-41); Mean Corp Hgb Conc 33.3 g/dL (32-36); Mean Corpuscular Volume 92.9 fL (80-94); Mean Platelet Vol. 9.2 fl (6.2-12.0); Monocyte# 0.91 X10^3/uL; Monocyte% 10.3 % (0-10); NRBC Flagged by Analyzer 0 % (0-5); Neutrophil % 83.5 % (47-70); POSITIVE DIFFERENTIAL YES; Platelet Count 215 K/mm3 (150-450); RBC Distribution Width CV 13.9 % (11.6-14.6); RBC Distribution Width SD 47.5 fl (35.1-43.9); Red Blood Count 4.36 M/mm3 (4.6-6.2); White Blood Count 8.9 K/mm3 (4.4-11.0)
[2022-05-07] MEDS: 0.9% Normal Saline 1,000 ML 150 ML IV (07:00)
[2022-05-07 07:08] LABS: Differential Indicated SCAN CRITERIA MET
[2022-05-07 07:09] LABS: AST(SGOT) 22 U/L (15-37); Alanine Aminotransfer ALT/SGPT 30 U/L (16-61); Albumin, Serum 3.4 g/dL (3.2-5.0); Alkaline Phosphatase 92 U/L (45-117); Anion Gap 7 (5-15); BUN 19 mg/dL (7-18); BUN/Creat Ratio 18.1 RATIO (10-20); Bilirubin, Direct 0.15 mg/dL (0.00-0.30); Calcium,Total 8.5 mg/dL (8.5-10.1); Chloride 104 mmol/L (98-107); Creatinine, Serum 1.05 mg/dL (0.70-1.30); EST Glomerular Filtration Rate 74 mL/min (>60); Est Glom Filt Rate - Afr Amer 90 mL/min (>60); Estimated Creatinine Clearance 64.24 ml/min; Globulin 3.5 g/dL (2.2-4.2); Glucose 208 mg/dL (74-106); Potassium 4.2 mmol/L (3.5-5.1); Protein, Total 6.9 g/dL (6.4-8.2); Sodium Level 139 mmol/L (136-145)
--- NOTE | 2022-05-07 07:09 | RAD_ITS ---
INDICATION: fever EXAMINATION/TECHNIQUE: X-RAY - XR Chest 1 View COMPARISON: 04/25/2021 FINDINGS: LINES/DEVICES: None. LUNGS: Hazy left lower lobe opacities. MEDIASTINUM AND CARDIOVASCULAR STRUCTURES: Cardiac silhouette not enlarged. Central airways and mediastinal contour are unremarkable. BONES AND SOFT TISSUES: Unremarkable. RAD/Chest 1 View (Portable) IMPRESSION: Hazy left lower lobe opacities, may represent atelectasis or infection. Electronically Signed: Oscar Robertson MD at 7:33 EST ,
[2022-05-07 07:18] LABS: Lactic Acid 1.7 mmol/L (0.4-1.9)
[2022-05-07 07:39] LABS: Mucous, Urine 0 SEEN /hpf (<or=2+); Red Blood Cells-Urine 0 SEEN /hpf (0-5)
[2022-05-07 07:46] VITALS: BP 116/65; PULSE 96; RESP 26; TEMP 36.6; O2SAT 95
[2022-05-07 07:54] LABS: Color, Urine Yellow (Yellow); Glucose, Dipstick Normal (Normal); Ketone-Dipstick Negative (Negative); Leukocyte Esterase-Dipstick 100 /ul (Negative); Nitrite-Dipstick Positive (Negative); Occult Blood-Urine Negative /ul (Negative); Protein-Dipstick 30 mg/dl (Negative); Specific Gravity, Urine 1.015 (1.002-1.030); Urine Bilirubin Dipstick Negative (Negative); Urine Clarity Sl. Cloudy (Clear); Urine Urobilinogen Normal (Normal); Urine pH 6.5 (5.0 - 8.0)
[2022-05-07 08:01] LABS: Bacteria 2+ /hpf (None Seen); Squamous Epithelial Cells - UA 0-5 SEEN /hpf (0-5); White Blood Cells 10-25 SEEN /hpf (0-5)
[2022-05-07 08:08] VITALS: BP 117/64
--- NOTE | 2022-05-07 08:41 | NURSING ---
CALLED [facility], ETA IS 30 TO 45 MIN
[2022-05-07] MEDS: OSELTAMIVIR PHOSPHATE 6 MG/ML BOTTLE 75 MG PO (08:43)
[2022-05-07] MEDS: Cephalexin Suspension 250 MG/5 ML PO.SYRINGE 500 MG GT (08:44)
== END 2022-05-07 09:36 | disposition skilled nursing facility (03) ==
PROVIDERS: Emergency Provider Emergency Medicine; PCP Family Medicine; Visit Provider Emergency Medicine
DX: J10.1 Influenza due to other identified influenza virus with other respiratory manifestations (principal); I69.359 Hemiplegia and hemiparesis following cerebral infarction affecting unspecified side; N39.0 Urinary tract infection, site not specified; I69.320 Aphasia following cerebral infarction; G47.30 Sleep apnea, unspecified; Z99.81 Dependence on supplemental oxygen
CPT/HCPCS: 96360; 96361; 99285; 71045; 80048; 80076; 81001; 83605; 85025; 87040; 87077; 87086; 87088; 87428; 93005; A4216

== ENCOUNTER 2022-05-08 13:02 | Inpatient (IN) | payer MEDICARE, MEDICAID, SELFPAY ==
[2022-05-08] VITALS (17 sets, daily range): BP systolic 105–165; BP diastolic 52–77; PULSE 72–122; RESP 20–29; TEMP 36.4–38.7; O2SAT 90–100; BMI 43.1; BMI 42.2
--- NOTE | 2022-05-08 13:31 | EKG12_ITS ---
Test Reason : sob Blood Pressure : / mmHG Vent. Rate : 094 BPM Atrial Rate : 094 BPM P-R Int : 198 ms QRS Dur : 062 ms QT Int : 406 ms P-R-T Axes : 063 058 070 degrees QTc Int : 507 ms Poor data quality, interpretation may be adversely affected Sinus rhythm with frequent Premature ventricular complexes in a pattern of bigeminy Septal infarct , age undetermined Prolonged QT Abnormal ECG Confirmed by ARIANNA MILLAN, BERTHA ([id number]), marketing editor SIRENA NANCE ([id number]) on 05/13/2022 12:26:18 PM Referred By: Bijal Confirmed By:BERTHA KELLER MD
--- NOTE | 2022-05-08 13:31 | RAD_ITS ---
STUDY: X-RAY CHEST REASON FOR EXAM: Male, 71 years old. Sob TECHNIQUE: Single AP portable view of the chest. COMPARISON: May 07, 2022 chest x-ray FINDINGS: There is improved aeration of the lung bases since prior study. There is no demonstrated pleural abnormality. Normal size heart. Normal mediastinum and birttany. Normal visualized pulmonary arteries. Normal visualized aortic arch and descending thoracic aorta. There are diffuse degenerative changes of the visualized thoracic spine. Normal visualized ribs, clavicles, and shoulders. There is no demonstrated abnormality of the visualized soft tissue structures of the upper abdomen. RAD/Chest 1 View (Portable) IMPRESSION: No demonstrated acute cardiopulmonary process. Electronically Signed: Keri Bateman MD at 14:17 EST Reading Location ID and State: [facility] / [place] Tel , Service support ,
--- NOTE | 2022-05-08 13:34 | ED.VIS.DYS ---
HPI History of Present Illness Chief Complaint: Shortness of Breath Narrative Narrative: Patient presents with hypoxia. He was recently diagnosed with influenza A, he has been getting worse recently. He has aphasia and a PEG tube, I cannot discuss with him he cannot communicate verbally secondary to his aphasia. Most of the history is from EMS and the [place] [facility]. I cannot do a review of systems on him. [facility] Medical History Anxiety Aphasia Apraxia Convulsions Depression Diabetes Dysphagia Encounter for attention to gastrostomy Heart disease Hemiplegia Hyperlipemia Hypertension PEG (percutaneous endoscopic gastrostomy) adjustment/replacement/removal Peripheral vascular disease Sleep apnea Stroke/cerebrovascular accident Home Medications gabapentin 250 mg/5 mL oral solution (Neurontin) 300 mg G-tube TIDCM Neuropathy 05/11/17 [History Last Taken 05/08/22] gemfibrozil 600 mg tablet 600 mg G-tube BIDAC CHOLESTEROL 05/11/17 [History Last Taken 05/08/22] clopidogrel 75 mg tablet 75 mg G-tube DAILY Blood thinner 08/16/17 [History Last Taken 05/08/22] atorvastatin 80 mg tablet 80 mg G-tube QHS Cholesterol 10/07/17 [History Last Taken 05/07/22] ezetimibe 10 mg tablet 10 mg GT QHS CHOLESTEROL 01/14/19 [History Last Taken 05/07/22] acetaminophen 500 mg tablet 1,000 mg feeding tube Q8H PAIN ##0 03/15/20 [History Last Taken 05/08/22] cilostazol 100 mg tablet 100 mg GT BID PAD 03/15/20 [History Last Taken 05/08/22] insulin glargine 100 unit/mL (3 mL) subcutaneous pen (Lantus Solostar U-100 Insulin) 20 units subcut QHS DM 03/15/20 [History Last Taken 05/07/22] insulin lispro 100 unit/mL subcutaneous cartridge 15 unit subcut TIDCM DM 03/15/20 [History Last Taken 05/08/22] insulin lispro 100 unit/mL subcutaneous cartridge See Protocol SC TIDCM DM 03/15/20 [History Last Taken 05/08/22] levetiracetam 500 mg tablet 500 mg GT DAILY@1200 SEIZURES 03/15/20 [History Last Taken 05/07/22] levetiracetam 750 mg tablet 750 mg GT BID SEIZURES 03/15/20 [History Last Taken 05/08/22] aspirin 81 mg tablet,delayed release 81 mg feeding tube DAILY CAD 04/25/21 [History Last Taken 05/08/22] citalopram 10 mg tablet 10 mg feeding tube DAILY DEPRESSION 04/25/21 [History Last Taken 05/08/22] losartan 50 mg tablet 50 mg feeding tube DAILY HTN 04/25/21 [History Last Taken 05/08/22] acetaminophen 650 mg/20.3 mL oral suspension 650 mg PO Q4H PRN PAIN/FEVER 10/28/21 [History Last Taken 05/08/22] albuterol sulfate 90 mcg/actuation aerosol inhaler (Ventolin HFA) 1 puff inhalation Q2H PRN SOB 10/28/21 [History Last Taken Unknown] aluminum-mag hydroxide-simethicone 200 mg-200 mg-20 mg/5 mL oral susp (Tari-Lanta) 10 ml feeding tube TID PRN BLOATING 10/28/21 [History Last Taken 05/08/22] bisacodyl 10 mg rectal suppository 10 mg MT DAILY PRN Constipation 10/28/21 [History Last Taken Unknown] guaifenesin 200 mg/5 mL oral liquid 400 mg PO Q4H PRN Cough 10/28/21 [History Last Taken Unknown] loperamide 2 mg capsule 2 mg PO Q2H PRN Diarrhea 10/28/21 [History Last Taken Unknown] magnesium hydroxide 400 mg/5 mL oral suspension (Milk of Magnesia) 30 ml PO DAILY PRN Constipation 10/28/21 [History Last Taken Unknown] sodium phosphates 19 gram-7 gram/118 mL enema (Enema) 118 ml MT DAILY PRN Constipation 10/28/21 [History Last Taken Unknown] cephalexin 250 mg/5 mL oral suspension 500 mg (10 mL) G-tube Q12H 7 days #140 mL 05/07/22 [Rx Last Taken 05/08/22] oseltamivir 6 mg/mL oral suspension (Tamiflu) 75 mg (12.5 mL) feeding tube BID 5 days #125 mL 05/07/22 [Rx Last Taken 05/08/22] polyethylene glycol 400 1 % eye drops (Visine Dry Eye Relief) 2 drp LEFT EYE Q2H PRN Dry Eye(S) 05/08/22 [History Last Taken Unknown] Allergy/AdvReac Type Severity Reaction Status Date / Time No Known Allergies Allergy Verified 10/28/21 09:43 Surgical History (Updated 05/08/22 @ 15:[address] Ken Melgoza MD) Status post abdominal aortic aneurysm repair Social History Smoking Status: Never smoker substance use type: does not use ROS ROS ED Review of Systems ROS Unobtainable: due to mental condition, due to mental status and other Details: Severe aphasia EXAM Physical Exam Narrative Exam Narrative: Physical exam General: Patient appears in some distress. He appears chronically ill. Head: Normocephalic, Atraumatic Eyes: Conjunctiva not pale ENT: Slightly dry mucous membranes Neck: Supple, Nontender, No lymphadenopathy Cardiovascular: Regular rate, Regular rhythm, I cannot appreciate a murmur however quite difficult secondary to the room being loud as well as his lung sounds. Respiratory: Audible rhonchi and wheezes. He is tachypneic. Abdomen: Soft, Nontender, obese abdomen. G-tube is intact Back: Nontender, Normal Inspection. Negative for: CVA tenderness Extremities: Some bilateral edema Skin: Normal color, No rash Neurological: No gross focal deficit. Const Vital Signs: 05/08/22 13:03 05/08/22 13:06 05/08/22 13:07 Temperature 97.6 F L 97.6 F L Temperature Source Temporal Temporal Pulse Rate 91 91 Respiratory Rate 20 H 21 H Respiratory Effort Short of Breath Respiratory Pattern Blood Pressure 119/53 L 119/53 L Blood Pressure Mean 75 75 Pulse Ox 93 94 Oxygen Delivery Method Nasal Cannula Nasal Cannula Nasal Cannula Oxygen Flow Rate (L/min) 4 3 4 Fraction of Inspired Oxygen (FIO2) 05/08/22 13:34 05/08/22 13:41 05/08/22 14:22 Temperature Temperature Source Pulse Rate 98 97 Respiratory Rate 28 H 20 H Respiratory Effort Respiratory Pattern Tachypnea Blood Pressure 135/55 H Blood Pressure Mean 81 Pulse Ox 90 94 Oxygen Delivery Method Venturi Mask Non-Rebreather Oxygen Flow Rate (L/min) 15 Fraction of Inspired Oxygen (FIO2) 50 05/08/22 14:22 Temperature 97.6 F L Temperature Source Temporal Pulse Rate 100 Respiratory Rate 20 H Respiratory Effort Respiratory Pattern Blood Pressure 135/55 H Blood Pressure Mean 81 Pulse Ox 93 Oxygen Delivery Method Non-Rebreather Oxygen Flow Rate (L/min) 15 Fraction of Inspired Oxygen (FIO2) MDM MDM Lab Data Labs: Laboratory Results - last 24 hr 05/08/22 05/08/22 05/08/22 13:20 13:20 13:20 WBC 8.0 RBC 4.28 L Hgb 13.3 Hct 40.5 MCV 94.6 H MCH 31.1 MCHC 32.8 RDW Std Deviation 50.4 H RDW Coeff of Corinne 14.5 Plt Count 190 MPV 9.2 Immature Gran % (Auto) 0.400 Neut % (Auto) 76.2 H Lymph % (Auto) 15.6 L [place] % (Auto) 7.3 Eos % (Auto) 0.0 Baso % (Auto) 0.5 Absolute Neuts (auto) 6.1 Absolute Lymphs (auto) 1.25 Nucleated RBC % 0 PT 13.9 INR 1.1 Sodium 136 Potassium 3.3 L Chloride 102 Carbon Dioxide 28.0 Anion Gap 6 BUN 26 H Creatinine 1.72 H Estim Creat Clear Calc 39.22 Est GFR (MDRD) Af Amer 51 L Est GFR (MDRD) Non-Af 42 L BUN/Creatinine Ratio 15.1 Glucose 230 H Lactic Acid Calcium 8.0 L Total Bilirubin 0.40 AST 33 ALT 29 Alkaline Phosphatase 73 B-Natriuretic Peptide Total Protein 7.0 Albumin 3.1 L Globulin 3.9 Albumin/Globulin Ratio 0.8 L 05/08/22 05/08/22 13:20 13:20 WBC RBC Hgb Hct MCV MCH MCHC RDW Std Deviation RDW Coeff of Corinne Plt Count MPV Immature Gran % (Auto) Neut % (Auto) Lymph % (Auto) [place] % (Auto) Eos % (Auto) Baso % (Auto) Absolute Neuts (auto) Absolute Lymphs (auto) Nucleated RBC % PT INR Sodium Potassium Chloride Carbon Dioxide Anion Gap BUN Creatinine Estim Creat Clear Calc Est GFR (MDRD) Af Amer Est GFR (MDRD) Non-Af BUN/Creatinine Ratio Glucose Lactic Acid 1.8 Calcium Total Bilirubin AST ALT Alkaline Phosphatase B-Natriuretic Peptide 55.0 Total Protein Albumin Globulin Albumin/Globulin Ratio ABG Data ABG results: ABG 05/08/22 14:52 Specimen Type ART Sample Site L Brach pH 7.35 Bicarbonate Actual 27.0 H Total CO2 29 Base Excess 1 O2 Saturation 98 O2 % 100 ABG pCO2 49.2 H ABG pO2 108 H O2 Delivery Device NRB Radiography Diagnostic Testing: Clinical Impression(s) from Imaging Studies Chest X-Ray 05/08/22 13:31 IMPRESSION: No demonstrated acute cardiopulmonary process. Electronically Signed: Keri Bateman MD at 14:17 EST , Chest x-ray read by me as unremarkable. No pneumonia. EKG Initial EKG: Comments: Sinus rhythm with a rate of 94. Multiple PVCs are seen. QTC is 507. Nonspecific changes throughout. Interpreted by emergency Dr. Treatment and Re-Evaluation Narrative: Patient is on a nonrebreather mask, he is more comfortable. He came in respiratory distress she was diagnosed with influenza yesterday, and he is on Tamiflu he received Tamiflu yesterday and today therefore I do not have to give him Tamiflu currently. I do not see any underlying pneumonia thus I do not believe I have to treat with antibiotics he was given Keflex outpatient. I am now being told that the patient is on 2 L of oxygen at the ECF on like what I was initially told that he was not on any oxygen at the ECF. Regardless his oxygen demand has significantly increased. He will need admission I talked to the hospitalist who saw the patient in the ED. Critical Care Time Critical care time (excluding procedures): 30-74 minutes, Including time spent:, Discussing w/Patient &/or Family/Front Desk Worker, Discussing w/Consultants, Arranging Admission or Transfer, Performing Direct Patient Care at Bedside and - (30 min) Discharge Plan Triage Chief Complaint: Shortness of Breath ED Provider: Marcin Appiah Dx/Rx/DC Orders Clinical Impression: Respiratory failure, Acute respiratory failure with hypoxia, Influenza, Weakness, Aphasia Prescriptions: No Action gabapentin [Neurontin] 250 MG/5 ML solution 300 mg G-tube TIDCM Label Comments: Neuropathy gemfibrozil 600 MG tablet 600 mg G-tube BIDAC clopidogrel 75 MG tablet 75 mg G-tube DAILY Label Comments: Blood thinner atorvastatin 80 MG tablet 80 mg G-tube QHS Label Comments: Cholesterol ezetimibe 10 MG tablet 10 mg GT QHS levetiracetam 750 MG tablet 750 mg GT BID insulin lispro 100 UNIT/ML cartridge 15 unit SC TIDCM insulin glargine [Lantus Solostar U-100 Insulin] 100 UNITS/ML insulin pen 20 units SC QHS insulin lispro 100 UNIT/ML cartridge See Protocol SC TIDCM Protocol: 6. Sliding Scale Insulin Custom Condition: mg/dl range Dose/Route: Number of Units Condition: 151-200 Dose/Route: 2 Condition: 201-250 Dose/Route: 4 Condition: 251-300 Dose/Route: 6 Condition: 301-350 Dose/Route: 8 Condition: 351-400 Dose/Route: 10 Condition: 401-600 Dose/Route: 12 Instruction: CALL Protocol Text: Custom Sliding Scale cilostazol 100 MG tablet 100 mg GT BID levetiracetam 500 MG tablet 500 mg GT DAILY@1200 acetaminophen 500 mg Tablet 1,000 mg feeding tube Q8H Qty: 0 losartan 50 mg tablet 50 mg feeding tube DAILY citalopram 10 mg tablet 10 mg feeding tube DAILY aspirin 81 mg Tablet,Delayed Release (Dr/Ec) 81 mg feeding tube DAILY loperamide 2 mg Capsule 2 mg PO Q2H PRN (Reason: Diarrhea) Rx Instructions: administer after each loose stool until symptoms controlled; do not exceed 8 mg per 24 hrs magnesium hydroxide [Milk of Magnesia] 400 mg/5 mL Suspension 30 ml PO DAILY PRN (Reason: Constipation) bisacodyl 10 mg Suppository 10 mg MT DAILY PRN (Reason: Constipation) Enema 19-7 gram/118 mL Enema 118 ml MT DAILY PRN (Reason: Constipation) alum-mag hydroxide-simeth [Tari-Lanta] 200-200-20 mg/5 mL Suspension 10 ml feeding tube TID PRN (Reason: BLOATING) albuterol sulfate [Ventolin HFA] 90 mcg/actuation Hfa Aerosol Inhaler 1 puff INHALATION Q2H PRN (Reason: SOB) guaifenesin 200 mg/5 mL Liquid 400 mg PO Q4H PRN (Reason: Cough) acetaminophen 650 mg/20.3 mL Suspension 650 mg PO Q4H PRN (Reason: PAIN/FEVER) cephalexin 250 mg/5 mL suspension for reconstitution 500 mg G-tube Q12H 7 Days Qty: 140 0RF oseltamivir [Tamiflu] 6 mg/mL suspension for reconstitution 75 mg feeding tube BID 5 Days Qty: 125 0RF Rx Instructions: END DATE Visine Dry Eye Relief 1 % Drops 2 drp LEFT EYE Q2H PRN (Reason: Dry Eye(S)) Primary Care Provider: Marcin Joseph Referrals: Marcin Joseph MD [Primary Care Provider] - Disposition Disposition: Acute Care Hospital [facility] [place]
[2022-05-08] MEDS: Ipratropium/Albuterol Sulfate 3 ML AMPUL.NEB INHALATION ×2 (13:39→19:39)
[2022-05-08 13:42] LABS: Absolute Lymphocyte Count 1.25 X10^3/uL (0.83-4.51); Absolute Neutrophil Count 6.1 X10^3/uL (2.0-7.7); Basophil# 0.04 X10^3/uL; Basophil% 0.5 % (0-1); Hematocrit 40.5 % (40-54); Hemoglobin 13.3 g/dL (13.0-16.5); Lymphocyte # 1.25 X10^3/ul (0.83-4.51); Lymphocyte % 15.6 % (19-41); Mean Corp Hgb Conc 32.8 g/dL (32-36); Mean Corpuscular Hgb 31.1 pg (27.0-32.0); Mean Corpuscular Volume 94.6 fL (80-94); Mean Platelet Vol. 9.2 fl (6.2-12.0); Monocyte# 0.59 X10^3/uL; Monocyte% 7.3 % (0-10); NRBC Flagged by Analyzer 0 % (0-5); Neutrophil # 6.12 X10^3/uL (2.7-7.7); Neutrophil % 76.2 % (47-70); Platelet Count 190 K/mm3 (150-450); RBC Distribution Width CV 14.5 % (11.6-14.6); RBC Distribution Width SD 50.4 fl (35.1-43.9); Red Blood Count 4.28 M/mm3 (4.6-6.2)
[2022-05-08 13:47] LABS: International Normalized Ratio 1.1; Prothrombin Time (Protime)PT. 13.9 SECONDS (11.7-14.9)
[2022-05-08 13:56] LABS: ALB/GLOB Ratio 0.8 RATIO (0.9-2.4); AST(SGOT) 33 U/L (15-37); Alanine Aminotransfer ALT/SGPT 29 U/L (16-61); Albumin, Serum 3.1 g/dL (3.2-5.0); Alkaline Phosphatase 73 U/L (45-117); Anion Gap 6 (5-15); BUN 26 mg/dL (7-18); BUN/Creat Ratio 15.1 RATIO (10-20); Chloride 102 mmol/L (98-107); Creatinine, Serum 1.72 mg/dL (0.70-1.30); EST Glomerular Filtration Rate 42 mL/min (>60); Est Glom Filt Rate - Afr Amer 51 mL/min (>60); Estimated Creatinine Clearance 39.22 ml/min; Globulin 3.9 g/dL (2.2-4.2); Glucose 230 mg/dL (74-106); Potassium 3.3 mmol/L (3.5-5.1); Sodium Level 136 mmol/L (136-145)
[2022-05-08 14:02] LABS: Lactic Acid 1.8 mmol/L (0.4-1.9)
[2022-05-08] MEDS: 0.9% Normal Saline 1,000 ML 999 ML IV (14:22)
[2022-05-08 15:00] LABS: Base Excess 1 mmol/L (-2 to +2); Blood Gas Specimen Type ART; FI02 100; O2 Delivery Device NRB; PO2 108 mmHG (75-100); SITE L Brach; SO2 98 % (95-99); Total Carbon Dioxide 29 mmol/L; pCO2 49.2 mmHg (35-45); pH 7.35 (7.35-7.45)
--- NOTE | 2022-05-08 15:32 | HP.PCM.HOS_ITS ---
HPI - General General Date of Admission: 05/08/22 HPI Narrative JUANY MCDOWELL, is a 71 M who presents to the hospital with worsening hypoxia. He was seen in the ER yesterday because of some shortness of breath, he normally wears 2 L at rest but was needing 4 L yesterday. He tested positive for flu B and was started on Tamiflu, his urine at that time was also little bit dirty so a urine culture was obtained and he was started on twice daily Keflex through his PEG tube. Urine cultures coming back positive with Staphylococcus species greater than 100,000 CFU's. In the ER today he was needing nonrebreather, and he was making a lot of upper airway sounds that he could not clear his secretions. He is currently on 15 L nonrebreather maintaining his oxygen and his. In the ER chest x-ray was obtained that did not show any consolidation and his COVID test is negative that was done yesterday. Unfortunately he has a history of aphasia from a stroke and is unable to communicate so the history was obtained from chart review and discussing the case with the ED physician. [facility] Medical History Anxiety Aphasia Apraxia Convulsions Depression Diabetes Dysphagia Encounter for attention to gastrostomy Heart disease Hemiplegia Hyperlipemia Hypertension PEG (percutaneous endoscopic gastrostomy) adjustment/replacement/removal Peripheral vascular disease Sleep apnea Stroke/cerebrovascular accident Home Medications gabapentin 250 mg/5 mL oral solution (Neurontin) 300 mg G-tube TIDCM Neuropathy 05/11/17 [History Last Taken 05/08/22] gemfibrozil 600 mg tablet 600 mg G-tube BIDAC CHOLESTEROL 05/11/17 [History Last Taken 05/08/22] clopidogrel 75 mg tablet 75 mg G-tube DAILY Blood thinner 08/16/17 [History Last Taken 05/08/22] atorvastatin 80 mg tablet 80 mg G-tube QHS Cholesterol 10/07/17 [History Last Taken 05/07/22] ezetimibe 10 mg tablet 10 mg GT QHS CHOLESTEROL 01/14/19 [History Last Taken 05/07/22] acetaminophen 500 mg tablet 1,000 mg feeding tube Q8H PAIN ##0 03/15/20 [History Last Taken 05/08/22] cilostazol 100 mg tablet 100 mg GT BID PAD 03/15/20 [History Last Taken 05/08/22] insulin glargine 100 unit/mL (3 mL) subcutaneous pen (Lantus Solostar U-100 Insulin) 20 units subcut QHS DM 03/15/20 [History Last Taken 05/07/22] insulin lispro 100 unit/mL subcutaneous cartridge 15 unit subcut TIDCM DM 03/15/20 [History Last Taken 05/08/22] insulin lispro 100 unit/mL subcutaneous cartridge See Protocol SC TIDCM DM 03/15/20 [History Last Taken 05/08/22] levetiracetam 500 mg tablet 500 mg GT DAILY@1200 SEIZURES 03/15/20 [History Last Taken 05/07/22] levetiracetam 750 mg tablet 750 mg GT BID SEIZURES 03/15/20 [History Last Taken 05/08/22] aspirin 81 mg tablet,delayed release 81 mg feeding tube DAILY CAD 04/25/21 [History Last Taken 05/08/22] citalopram 10 mg tablet 10 mg feeding tube DAILY DEPRESSION 04/25/21 [History Last Taken 05/08/22] losartan 50 mg tablet 50 mg feeding tube DAILY HTN 04/25/21 [History Last Taken 05/08/22] acetaminophen 650 mg/20.3 mL oral suspension 650 mg PO Q4H PRN PAIN/FEVER 10/10 [History Last Taken 05/08/22] albuterol sulfate 90 mcg/actuation aerosol inhaler (Ventolin HFA) 1 puff inhalation Q2H PRN SOB 10/28/21 [History Last Taken Unknown] aluminum-mag hydroxide-simethicone 200 mg-200 mg-20 mg/5 mL oral susp (Tari- Lanta) 10 ml feeding tube TID PRN BLOATING 10/28/21 [History Last Taken 05/08/22] bisacodyl 10 mg rectal suppository 10 mg OH DAILY PRN Constipation 10/28/21 [History Last Taken Unknown] guaifenesin 200 mg/5 mL oral liquid 400 mg PO Q4H PRN Cough 10/28/21 [History Last Taken Unknown] loperamide 2 mg capsule 2 mg PO Q2H PRN Diarrhea 10/28/21 [History Last Taken Unknown] magnesium hydroxide 400 mg/5 mL oral suspension (Milk of Magnesia) 30 ml PO DAILY PRN Constipation 10/28/21 [History Last Taken Unknown] sodium phosphates 19 gram-7 gram/118 mL enema (Enema) 118 ml [place] DAILY PRN Constipation 10/28/21 [History Last Taken Unknown] cephalexin 250 mg/5 mL oral suspension 500 mg (10 mL) G-tube Q12H 7 days #140 mL 05/07/22 [Rx Last Taken 05/08/22] oseltamivir 6 mg/mL oral suspension (Tamiflu) 75 mg (12.5 mL) feeding tube BID 5 days #125 mL 05/07/22 [Rx Last Taken 05/08/22] polyethylene glycol 400 1 % eye drops (Visine Dry Eye Relief) 2 drp LEFT EYE Q2H PRN Dry Eye(S) 05/08/22 [History Last Taken Unknown] Allergy/AdvReac Type Severity Reaction Status Date / Time No Known Allergies Allergy Verified 10/28/21 09:43 no significant family history Surgical History (Updated 05/08/22 @ 15:[address] Ken Melgoza MD) Status post abdominal aortic aneurysm repair Social History Smoking Status: Never smoker substance use type: does not use ROS Review of Systems ROS Unobtainable: other Details: Aphasia Vital Signs Vital Signs Vital Signs: 05/08/22 13:03 05/08/22 13:06 05/08/22 13:07 Temperature 97.6 F L 97.6 F L Temperature Source Temporal Temporal Pulse Rate 91 91 Respiratory Rate 20 H 21 H Respiratory Effort Short of Breath Respiratory Pattern Blood Pressure 119/53 L 119/53 L Blood Pressure Mean 75 75 Pulse Ox 93 94 Oxygen Delivery Method Nasal Cannula Nasal Cannula Nasal Cannula Oxygen Flow Rate (L/min) 4 3 4 Fraction of Inspired Oxygen (FIO2) 05/08/22 13:34 05/08/22 13:41 05/08/22 14:22 Temperature Temperature Source Pulse Rate 98 97 Respiratory Rate 28 H 20 H Respiratory Effort Respiratory Pattern Tachypnea Blood Pressure 135/55 H Blood Pressure Mean 81 Pulse Ox 90 94 Oxygen Delivery Method Venturi Mask Non-Rebreather Oxygen Flow Rate (L/min) 15 Fraction of Inspired Oxygen (FIO2) 50 05/08/22 14:22 Temperature 97.6 F L Temperature Source Temporal Pulse Rate 100 Respiratory Rate 20 H Respiratory Effort Respiratory Pattern Blood Pressure 135/55 H Blood Pressure Mean 81 Pulse Ox 93 Oxygen Delivery Method Non-Rebreather Oxygen Flow Rate (L/min) 15 Fraction of Inspired Oxygen (FIO2) Weight Weight: 283 lb 14.4 oz Body Mass Index (BMI) 43.1 Physical Exam Narrative General: Alert, cooperative, No apparent distress HEENT: Atraumatic, PERRLA, EOMI, Normocephalic Oral: Moist Mucosa Neck: Supple, No JVD Lungs: Diminished, Normal air movement, rhonchi, wheeze, No rales Cardiovascular: Tachycardic, Regular Rhythm, Normal S1, Normal S2, No murmurs Abdomen: Soft, Non Tender, Non-Distended, No Hepato-splenomegaly, PEG tube in place Extremities: No edema, Capillary Refill Less than 3 Seconds Skin: No rashes, No breakdown Musculoskeletal: No Tenderness to Palpation of Joints or Extremities Neurological: Right hemiparesis with aphasia Psych/Mental Status: Normal Affect, Appropriate Results Lab / Micro Data Result Diagrams: 05/08/22 13:20 05/08/22 13:20 Labs: Laboratory Results - last 24 hr 05/08/22 13:20: WBC 8.0, RBC 4.28 L, Hgb 13.3, Hct 40.5, MCV 94.6 H, MCH 31.1, MCHC 32.8, RDW Std Deviation 50.4 H, RDW Coeff of Corinne 14.5, Plt Count 190, MPV 9.2, Immature Gran % (Auto) 0.400, Neut % (Auto) 76.2 H, Lymph % (Auto) 15.6 L, [place] % (Auto) 7.3, Eos % (Auto) 0.0, Baso % (Auto) 0.5, Absolute Neuts (auto) 6.1, Absolute Lymphs (auto) 1.25, Nucleated RBC % 0 05/08/22 13:20: PT 13.9, INR 1.1 05/08/22 13:20: Sodium 136, Potassium 3.3 L, Chloride 102, Carbon Dioxide 28.0, Anion Gap 6, BUN 26 H, Creatinine 1.72 H, Estim Creat Clear Calc 39.22, Est GFR (MDRD) Af Amer 51 L, Est GFR (MDRD) Non-Af 42 L, BUN/Creatinine Ratio 15.1, Glucose 230 H, Calcium 8.0 L, Total Bilirubin 0.40, AST 33, ALT 29, Alkaline Phosphatase 73, Total Protein 7.0, Albumin 3.1 L, Globulin 3.9, Albumin/Globulin Ratio 0.8 L 05/08/22 13:20: Lactic Acid 1.8 05/08/22 13:20: B-Natriuretic Peptide 55.0 ABG Data ABG results: ABG 05/08/22 14:52 Specimen Type ART Sample Site L Brach pH 7.35 Bicarbonate Actual 27.0 H Total CO2 29 Base Excess 1 O2 Saturation 98 O2 % 100 ABG pCO2 49.2 H ABG pO2 108 H O2 Delivery Device NRB Radiology Impression Chest X-Ray 05/08/22 13:31 IMPRESSION: No demonstrated acute cardiopulmonary process. Electronically Signed: Keri Bateman MD at 14:17 EST Reading Location ID and State: [facility] / [place] Tel , Service support , Assessment & Plan Assessment/Plan (1) Acute respiratory failure with hypoxia: (2) Influenza B: (3) UTI (urinary tract infection): PLAN: Plan 1. Acute hypoxic respiratory failure secondary to influenza B/DARRELL/UTI with staph ? We will monitor his renal function however given his respiratory status will be cautious with IV fluids he is getting some IV fluids in ER now but we will not admit him on IV fluids ? Continue with steroids and DuoNebs as well as Tamiflu ? Also continue with Keflex pending a result of his urine culture ? We will continue with pulmonary toileting 2. Aphasia and dysphagia secondary to a CVA/seizure disorder ? She does have a PEG tube in place so we will try to give most medications through the PEG tube ? She does remain aphasic secondary to his left MCA stroke, he does have right hemiparesis ? We will continue with his Keppra and gabapentin 3. HTN/HLD ? Continue with his cholesterol medication, his blood pressure is stable ? We will hold his his losartan secondary to his DARRELL 4. DM2 ? [facility] will [facility] with the [facility] as to what his diet is there ? We will place him on sliding scale insulin as well as his 15 units 3 times daily with meals I do anticipate his blood sugar climbing given the initiation of steroids so may also need to put him back on his long-acting insulin as well ? Accu-Cheks AC at bedtime ? We will adjust as necessary DVT: SCDs Charges/Coding Visit Charges Inpatient E&M: 92500 Init Hosp L3
--- NOTE | 2022-05-08 15:46 | NURSING ---
MED SURG KOTSONIS HYPOXIA, INFLUENZA
--- NOTE | 2022-05-08 19:47 | CPS ---
Pt unable to do PEP at this time
[2022-05-08] MEDS: Cephalexin Suspension 250 MG/5 ML PO.SYRINGE 500 MG GT (20:35)
[2022-05-08] MEDS: Insulin Lispro 100 UNIT/ML INSULN.PEN SC (20:35)
[2022-05-08 21:05] LABS: Bedside Glucose 210 mg/dL (74-106)
[2022-05-08] MEDS: Cilostazol 50 MG Tablet 100 MG GT (22:07)
[2022-05-08] MEDS: Ezetimibe 10 MG Tablet GT (22:07)
[2022-05-08] MEDS: Atorvastatin Calcium 80 MG Tablet GT (22:07)
[2022-05-08] MEDS: 0.9% Saline Lock 10 ML Syringe IV (22:07)
[2022-05-08] MEDS: OSELTAMIVIR PHOSPHATE 6 MG/ML BOTTLE 75 MG GT (22:08)
--- NOTE | 2022-05-08 22:30 | PCM.PN.BLA ---
Progress Note Blood pressure on recheck is a little bit on the softer side. He does not have a lactic acidosis and his blood pressures have otherwise been normal in the 120s to 130s, perfusion in his extremities is normal and he is otherwise alert. He does have chronic aphasia. His respiratory panel came back with both influenza A and influenza B. He is on Tamiflu. We will start him on IV fluids for the softer blood pressures and continue with steroids as well as breathing treatments. We will also repeat an ABG at this time. I did contact respiratory therapy for deep suctioning as he is unable to clear secretions well given his history of a CVA. As for his staph UTI from yesterday we will start him on Vanco pending sensitivities. Of note chest x-ray on admission was unremarkable and his BNP was normal so we will hold off on Lasix given his DARRELL. His care was discussed with the night physician.
[2022-05-08] MEDS: 0.9% Normal Saline 1,000 ML 100 ML IV (23:39)
[2022-05-09] VITALS (24 sets, daily range): BP systolic 105–148; BP diastolic 46–65; PULSE 55–112; RESP 17–28; TEMP 36.1–37.4; O2SAT 89–100
--- NOTE | 2022-05-09 00:05 | PHA.PHARE_ITS ---
Consult Pharmacy has been consulted to manage selected antiobiotic: Vancomycin Type of Consult: New start Labs: Sodium 136 mmol/L (136-145) 05/08/22 13:20 Potassium 3.3 mmol/L (3.5-5.1) L 05/08/22 13:20 Chloride 102 mmol/L (98-107) 05/08/22 13:20 Carbon Dioxide 28.0 mmol/L (21.0-32.0) 05/08/22 13:20 Anion Gap 6 (5-15) 05/08/22 13:20 BUN 26 mg/dL (7-18) H 05/08/22 13:20 Creatinine 1.72 mg/dL (0.70-1.30) H 05/08/22 13:20 Est GFR (MDRD) Af Amer 51 mL/min (>60) L 05/08/22 13:20 Est GFR (MDRD) Non-Af 42 mL/min (>60) L 05/08/22 13:20 BUN/Creatinine Ratio 15.1 RATIO (10-20) 05/08/22 13:20 Glucose 230 mg/dL (74-106) H 05/08/22 13:20 Microbiology: Microbiology 05/08/22 13:39 Mucosa - Nasopharyngeal Respiratory Panel (PCR) - Final Influenza A (Subtype H1) Weight used for dosin kg Estimated Creatinine Clearance: 52.4 Goal Trough: 15-20 mcg/mL Pharmacy Plan for Drug Dosing: Pharmacy Service will continue to monitor and adjust dosing as required. Medications Vancomycin HCl 2,000 mg/ (Sodium Chloride) 540 mls @ 250 mls/hr IV X1 ONE Stop: 05/09/22 00:39 Last Admin: 05/08/22 23:39 Dose: 250 mls/hr Vancomycin HCl 1,250 mg/ (Sodium Chloride) 275 mls @ 167 mls/hr IV Q12H [facility] Follow-Up Labs: Trough Vancomycin Labs to be done on [date and time ordered]: 05/10 @ 1130
[2022-05-09 05:02] LABS: Absolute Neutrophil Count 7.5 X10^3/uL (2.0-7.7); Basophil# 0.02 X10^3/uL; Basophil% 0.2 % (0-1); Hematocrit 40.4 % (40-54); Hemoglobin 12.6 g/dL (13.0-16.5); Mean Corp Hgb Conc 31.2 g/dL (32-36); Mean Corpuscular Hgb 29.5 pg (27.0-32.0); Mean Corpuscular Volume 94.6 fL (80-94); Mean Platelet Vol. 9.6 fl (6.2-12.0); Monocyte# 0.52 X10^3/uL; Monocyte% 5.9 % (0-10); NRBC Flagged by Analyzer 0 % (0-5); Neutrophil % 85.6 % (47-70); Platelet Count 188 K/mm3 (150-450); RBC Distribution Width SD 49.2 fl (35.1-43.9); Red Blood Count 4.27 M/mm3 (4.6-6.2); White Blood Count 8.8 K/mm3 (4.4-11.0)
[2022-05-09 05:23] LABS: Anion Gap 6 (5-15); BUN 24 mg/dL (7-18); BUN/Creat Ratio 21.4 RATIO (10-20); Calcium,Total 7.5 mg/dL (8.5-10.1); Chloride 105 mmol/L (98-107); Creatinine, Serum 1.12 mg/dL (0.70-1.30); EST Glomerular Filtration Rate 69 mL/min (>60); Est Glom Filt Rate - Afr Amer 83 mL/min (>60); Estimated Creatinine Clearance 60.22 ml/min; Glucose 279 mg/dL (74-106); Sodium Level 137 mmol/L (136-145)
--- NOTE | 2022-05-09 05:55 | RAD_ITS ---
STUDY: X-RAY CHEST REASON FOR EXAM: Male, 71 years old. Dyspnea, cough TECHNIQUE: Single AP portable view of the chest. COMPARISON: Yesterday FINDINGS: EKG leads overlie the chest These are expanded with development of opacification the right lung base new since previous study, this likely represents atelectasis. No associated effusion. Left lung is clear Normal size heart. Normal mediastinum and brittany. Normal visualized pulmonary arteries. Normal visualized aortic arch and descending thoracic aorta. Mild degenerative changes in the thoracic spine. Normal visualized ribs, clavicles, and shoulders. There is no demonstrated abnormality of the visualized soft tissue structures of the upper abdomen. RAD/Chest 1 View (Portable) IMPRESSION: Subtle opacifications in the right lung base since the previous study, likely atelectasis. No associated effusion. Electronically Signed: Damián Bullock MD at 8:29 EST ,
[2022-05-09] MEDS: Ipratropium/Albuterol Sulfate 3 ML AMPUL.NEB INHALATION ×4 (06:54→19:03)
[2022-05-09 07:52] LABS: Procalcitonin 0.76 ng/mL (0.00-0.09)
[2022-05-09] MEDS: Insulin Lispro 100 UNIT/ML INSULN.PEN SC ×4 (07:54→23:06)
[2022-05-09] MEDS: Insulin Lispro 100 UNIT/ML INSULN.PEN 15 UNIT SC ×3 (07:54→17:19)
[2022-05-09] MEDS: levETIRAcetam Oral Solution 500 MG/5 ML 750 MG GT ×2 (07:59→17:00)
[2022-05-09] MEDS: Gabapentin 300 MG Capsule GT ×3 (08:00→17:01)
--- NOTE | 2022-05-09 09:54 | CON.PCM.CC_ITS ---
Assessment & Plan Assessment/Plan (1) Influenza B: PLAN: Plan RECOMMENDATIONS: 1. Okay to wean from CPAP therapy to nasal cannula oxygen for saturations greater than 90%. 2. Continue aggressive bronchopulmonary hygiene with nasotracheal suctioning if needed. 3. Continue Tamiflu to complete treatment course. 4. Steroids can be discontinued from my perspective. 5. Continue empiric antimicrobials to cover for potential aspiration as well. IMPRESSIONS: 1. Acute on chronic respiratory failure with hypoxia related to influenza A/B The patient presented to the hospital with worsening shortness of breath and hypoxia after being evaluated on May 07, at which time, he tested positive for influenza B. I do suspect that the patient's respiratory difficulties are likely secondary to his inability to effectively mobilize secretions. I would recommend continuing current supportive measures including supplemental oxygen t o maintain saturations at or above 90%. The patient will need to be maintained on aggressive bronchopulmonary hygiene regimen with NT suctioning, if needed. He can be weaned from continuous CPAP therapy from my perspective to nasal cannula oxygen. The patient will be continued on Tamiflu as ordered. He was started on empiric antimicrobials as well to cover for potential aspiration, given his history of dysphagia. Recommend ongoing nutritional support via G- tube. Corticosteroids can be discontinued from my perspective. 2. Staphylococcal urinary tract source of infection Continue antimicrobials as ordered. 3. History of CVA with residual aphasia and hemiparesis/hypertension/hyperlipidemia/diabetes mellitus/morbid obesity Complicates care, management, recovery and prognosis. Continue home medications as indicated. This note was generated with [employer] dictation software. It may contain incorrect words, spelling, and punctuation that were not noted in checking the note before signing. HPI Consult Data Date of Consult: 05/09/22 HPI Narrative Reason for Consultation: Respiratory failure HPI Narrative: The patient is a 71-year-old male, with a history as outlined below, who presented to the emergency department via EMS on May 08 with worsening sh ortness of breath and hypoxemia. The patient has been evaluated in the emergency department on May 07, at which time, he tested positive for influenza B. The patient was started on Tamiflu along with twice daily Keflex over concerns for urinary tract infection. The patient apparently utilizes 2 L/min of supplemental oxygen at his baseline. He has a history of CVA along with residual aphasia and has difficulty communicating and mobilizing secretions. On presentation to the emergency department, the patient was noted to be afebrile and hemodynamically stable. Initial laboratory evaluation revealed no evidence of a leukocytosis. Chemistry profile was notable for a potassium of 3.3 and creatinine of 1.72. Urine analysis was positive for nitrites and leukocyte Estrace, along with 2+ urine bacteria. Respiratory viral panel was positive for influenza A. The patient had just tested positive for influenza B on May 07. Chest imaging demonstrated a right lower lobe infiltrate. The patient was ultimately admitted to the medical surgical floor, where he has been maintained on empiric antimicrobials, Tamiflu and supplemental oxygen. [facility] Medical History Anxiety Aphasia Apraxia Convulsions Depression Diabetes Dysphagia Encounter for attention to gastrostomy Heart disease Hemiplegia Hyperlipemia Hypertension PEG (percutaneous endoscopic gastrostomy) adjustment/replacement/removal Peripheral vascular disease Sleep apnea Stroke/cerebrovascular accident Home Medications gabapentin 250 mg/5 mL oral solution (Neurontin) 300 mg G-tube TIDCM Neuropathy 05/11/17 [History Last Taken 05/08/22] gemfibrozil 600 mg tablet 600 mg G-tube BIDAC CHOLESTEROL 05/11/17 [History Last Taken 05/08/22] clopidogrel 75 mg tablet 75 mg G-tube DAILY Blood thinner 08/16/17 [History Last Taken 05/08/22] atorvastatin 80 mg tablet 80 mg G-tube QHS Cholesterol 10/07/17 [History Last Taken 05/07/22] ezetimibe 10 mg tablet 10 mg GT QHS CHOLESTEROL 01/14/19 [History Last Taken 05/07/22] acetaminophen 500 mg tablet 1,000 mg feeding tube Q8H PAIN ##0 03/15/20 [History Last Taken 05/08/22] cilostazol 100 mg tablet 100 mg GT BID PAD 03/15/20 [History Last Taken 05/08/22] insulin glargine 100 unit/mL (3 mL) subcutaneous pen (Lantus Solostar U-100 Insulin) 20 units subcut QHS DM 03/15/20 [History Last Taken 05/07/22] insulin lispro 100 unit/mL subcutaneous cartridge 15 unit subcut TIDCM DM 03/15/20 [History Last Taken 05/08/22] insulin lispro 100 unit/mL subcutaneous cartridge See Protocol SC TIDCM DM 03/15/20 [History Last Taken 05/08/22] levetiracetam 500 mg tablet 500 mg GT DAILY@1200 SEIZURES 03/15/20 [History Last Taken 05/07/22] levetiracetam 750 mg tablet 750 mg GT BID SEIZURES 03/15/20 [History Last Taken 05/08/22] aspirin 81 mg tablet,delayed release 81 mg feeding tube DAILY CAD 04/25/21 [History Last Taken 05/08/22] citalopram 10 mg tablet 10 mg feeding tube DAILY DEPRESSION 04/25/21 [History Last Taken 05/08/22] losartan 50 mg tablet 50 mg feeding tube DAILY HTN 04/25/21 [History Last Taken 05/08/22] acetaminophen 650 mg/20.3 mL oral suspension 650 mg PO Q4H PRN PAIN/FEVER 10/28/21 [History Last Taken 05/08/22] albuterol sulfate 90 mcg/actuation aerosol inhaler (Ventolin HFA) 1 puff inhalation Q2H PRN SOB 10/28/21 [History Last Taken Unknown] aluminum-mag hydroxide-simethicone 200 mg-200 mg-20 mg/5 mL oral susp (Tari- Lanta) 10 ml feeding tube TID PRN BLOATING 10/28/21 [History Last Taken 05/08/22] bisacodyl 10 mg rectal suppository 10 mg DC DAILY PRN Constipation 10/28/21 [History Last Taken Unknown] guaifenesin 200 mg/5 mL oral liquid 400 mg PO Q4H PRN Cough 10/28/21 [History Last Taken Unknown] loperamide 2 mg capsule 2 mg PO Q2H PRN Diarrhea 10/28/21 [History Last Taken Unknown] magnesium hydroxide 400 mg/5 mL oral suspension (Milk of Magnesia) 30 ml PO DAILY PRN Constipation 10/28/21 [History Last Taken Unknown] sodium phosphates 19 gram-7 gram/118 mL enema (Enema) 118 ml DC DAILY PRN Constipation 10/28/21 [History Last Taken Unknown] cephalexin 250 mg/5 mL oral suspension 500 mg (10 mL) G-tube Q12H 7 days #140 mL 05/07/22 [Rx Last Taken 05/08/22] oseltamivir 6 mg/mL oral suspension (Tamiflu) 75 mg (12.5 mL) feeding tube BID 5 days #125 mL 05/07/22 [Rx Last Taken 05/08/22] polyethylene glycol 400 1 % eye drops (Visine Dry Eye Relief) 2 drp LEFT EYE Q2H PRN Dry Eye(S) 05/08/22 [History Last Taken Unknown] Allergy/AdvReac Type Severity Reaction Status Date / Time No Known Allergies Allergy Verified 10/28/21 09:43 Family History no significant family his Surgical History Status post abdominal aortic aneurysm repair Social History Smoking Status: Never smoker substance use type: does not use ROS ROS Narrative 10 systems reviewed with pertinent positives as noted in the HPI. Physical Exam Const alert and no apparent distress Constitutional Narrative: Morbidly obese with CPAP in place. General Appearance: cooperative HEENT normocephalic and head/scalp atraumatic Eyes PERRL, EOMs intact bilaterally and conjunctivae normal Neck supple General: trachea midline Chest inspection of chest normal Resp Auscultation: rales and diminished lung sounds Cardio regular rate and regular rhythm GI normal to inspection, nondistended, normoactive bowel sounds Extremity no clubbing, cyanosis or edema Skin no rashes or lesions noted Neuro Neuro Narrative: Baseline right-sided hemiparesis and aphasia Psych cooperative Lab / Micro Data Result Diagrams: 05/09/22 03:49 05/09/22 03:49 Labs: Laboratory Results - last 24 hr 05/08/22 13:20: WBC 8.0, RBC 4.28 L, Hgb 13.3, Hct 40.5, MCV 94.6 H, MCH 31.1, MCHC 32.8, RDW Std Deviation 50.4 H, RDW Coeff of Corinne 14.5, Plt Count 190, MPV 9.2, Immature Gran % (Auto) 0.400, Neut % (Auto) 76.2 H, Lymph % (Auto) 15.6 L, [place] % (Auto) 7.3, Eos % (Auto) 0.0, Baso % (Auto) 0.5, Absolute Neuts (auto) 6.1, Absolute Lymphs (auto) 1.25, Nucleated RBC % 0 05/08/22 13:20: PT 13.9, INR 1.1 05/08/22 13:20: Sodium 136, Potassium 3.3 L, Chloride 102, Carbon Dioxide 28.0, Anion Gap 6, BUN 26 H, Creatinine 1.72 H, Estim Creat Clear Calc 39.22, Est GFR (MDRD) Af Amer 51 L, Est GFR (MDRD) Non-Af 42 L, BUN/Creatinine Ratio 15.1, Glucose 230 H, Calcium 8.0 L, Total Bilirubin 0.40, AST 33, ALT 29, Alkaline Phosphatase 73, Total Protein 7.0, Albumin 3.1 L, Globulin 3.9, Albumin/Globulin Ratio 0.8 L 05/08/22 13:20: Lactic Acid 1.8 05/08/22 13:20: B-Natriuretic Peptide 55.0 05/08/22 20:32: POC Glucose 210 H 05/09/22 03:49: WBC 8.8, RBC 4.27 L, Hgb 12.6 L, Hct 40.4, MCV 94.6 H, MCH 29.5, MCHC 31.2 L, RDW Std Deviation 49.2 H, RDW Coeff of Corinne 14.0, Plt Count 188, MPV 9.6, Immature Gran % (Auto) 0.300, Neut % (Auto) 85.6 H, Lymph % (Auto) 8.0 L, [place] % (Auto) 5.9, Eos % (Auto) 0.0, Baso % (Auto) 0.2, Absolute Neuts (auto) 7.5, Absolute Lymphs (auto) 0.70 L, Nucleated RBC % 0 05/09/22 03:49: Sodium 137, Potassium 4.0, Chloride 105, Carbon Dioxide 26.0, Anion Gap 6, BUN 24 H, Creatinine 1.12, Estim Creat Clear Calc 60.22, Est GFR (MDRD) Af Amer 83, Est GFR (MDRD) Non-Af 69, BUN/Creatinine Ratio 21.4 H, Glucose 279 H, Calcium 7.5 L 05/09/22 03:49: Procalcitonin 0.76 H Micro: Microbiology 05/08/22 13:39 Mucosa - Nasopharyngeal Respiratory Panel (PCR) - Final Influenza A (Subtype H1) ABG Data ABG results: ABG 05/08/22 14:52 Specimen Type ART Sample Site L Brach pH 7.35 Bicarbonate Actual 27.0 H Total CO2 29 Base Excess 1 O2 Saturation 98 O2 % 100 ABG pCO2 49.2 H ABG pO2 108 H O2 Delivery Device NRB Radiology Impression Chest X-Ray 05/08/22 13:31 IMPRESSION: No demonstrated acute cardiopulmonary process. Electronically Signed: Keri Bateman MD at 14:17 EST , Chest X-Ray 05/09/22 05:55 IMPRESSION: Subtle opacifications in the right lung base since the previous study, likely atelectasis. No associated effusion. Electronically Signed: Damián Bullock MD at 8:29 EST , Charges/Coding Visit Charges Inpatient E&M: 52934 Init Hosp L3
[2022-05-09 10:00] LABS: Bedside Glucose 245 mg/dL (74-106)
[2022-05-09] MEDS: Menthol/Lanolin/Calamine/Znox 113 GM Tube 1 APPLIC TOPICAL ×4 (10:07→23:36)
[2022-05-09] MEDS: Aspirin 81 MG TAB.CHEW GT (10:07)
[2022-05-09] MEDS: Citalopram 10 MG Tablet GT (10:07)
[2022-05-09] MEDS: Clopidogrel Bisulfate 75 MG Tablet GT (10:08)
[2022-05-09] MEDS: Cilostazol 50 MG Tablet 100 MG GT ×2 (10:08→23:11)
[2022-05-09] MEDS: Losartan Potassium 50 MG Tablet GT (10:08)
[2022-05-09] MEDS: OSELTAMIVIR PHOSPHATE 6 MG/ML BOTTLE 75 MG GT ×2 (10:08→23:11)
--- NOTE | 2022-05-09 10:36 | CASEMGMT ---
Addendum entered by Humaira Cheung 05/10/22 10:17: JUDY spoke to Emma LomaxTHI at [facility]. She said that patient could return. JUDY provided overview of patient's current condition reviewing MD note. Humaira Cheung [employer]IDENT[employer]ISWS Addendum entered by Patt Summers 05/09/22 13:29: JUDY noticed pt has legal guardian, Khanh Reddy. JUDY called Khanh to attempt discharge planning. No answer. JUDY left with details of pt return to [facility]. JUDY encouraged Khanh to call JUDY with questions or concerns, or if the the discharge plan is not for pt to return to [facility]. CAREN Howe Original Note: Social Work SW in to meet with pt and begin discharge plan. Pt nurse, [place] was present in the room. JUDY confirmed with pt that pt came to [facility] from [facility]. Pt was offered a list from [facility], however pt declined and stated preference would be to return to [facility]. JUDY called [facility] to confirm pt return. JUDY spoke to nurse on the floor as admissions team unavailable. Nurse Edith confirmed pt is able to return. JUDY inquired about need for PASRR and precert being needed. Edith unable to inform on these questions. Edith took JUDY phone number and will provide to admissions to call JUDY back with answers. PLAN: Return to [facility], when medically ready. CAREN Howe
[2022-05-09] MEDS: 0.9% Normal Saline 1,000 ML 100 ML IV (11:17)
[2022-05-09 11:45] LABS: Bedside Glucose 266 mg/dL (74-106)
[2022-05-09] MEDS: Nystatin Powder 15gm Bottle 1 APPLIC TOPICAL ×2 (13:20→23:14)
[2022-05-09] MEDS: levETIRAcetam Oral Solution 500 MG/5 ML GT (13:20)
[2022-05-09] MEDS: Jevity 1.5. 1,000 ML Bottle 220 ML GT ×2 (17:02→23:09)
[2022-05-09 18:06] LABS: Bedside Glucose 338 mg/dL (74-106)
--- NOTE | 2022-05-09 18:12 | PN.HOSP_ITS ---
Subjective Subjective Past medical history of stroke with global aphasia and right hemiparesis who presented to the emergency department yesterday with worsening hypoxia. He was seen in the ER the day prior for shortness of breath and typically wears 2 L at rest but was requiring 4 L. He tested positive for flu B and was sent back to the nursing facility on Tamiflu. His urine also looked infected so he was started on Keflex twice daily. He read presented to the emergency department as he was requiring a nonrebreather to maintain oxygen saturations and making a lot of upper airway sounds that he could not clear. He was on CT At the time of my evaluation but has since been weaned to 4 L and having oxygen saturations 94 to 97%. He was still little bit sleepy and I did not get any good interaction from him. Objective Data Objective Data Vital Signs: Vital Signs Temp Pulse Resp BP Pulse Ox O2 Del Method O2 Flow Rate 98.6 F 89 20 H 110/60 98 Nasal Cannula 4 05/09/22 12:06 05/09/22 15:58 05/09/22 14:56 05/09/22 12:06 05/09/22 12:06 05/09/22 12:06 05/09/22 12:06 FiO2 70 05/09/22 06:54 Oxygen Flow Rate (L/min) 4 Oxygen Delivery Method Nasal Cannula Weight: 126 kg Body Mass Index (BMI) 42.2 Intake & Output: Intake and Output for Last 24 Hours 05/07/22 05/08/22 05/09/22 23:59 23:59 23:59 Intake Total 1100 / 1100 2162 / 2162 Balance 1100 / 1100 2162 / 2162 Lab / Micro Data Result Diagrams: 05/09/22 03:49 05/09/22 03:49 Labs: Laboratory Results - last 24 hr 05/08/22 20:32: POC Glucose 210 H 05/09/22 03:49: WBC 8.8, RBC 4.27 L, Hgb 12.6 L, Hct 40.4, MCV 94.6 H, MCH 29.5, MCHC 31.2 L, RDW Std Deviation 49.2 H, RDW Coeff of Corinne 14.0, Plt Count 188, MPV 9.6, Immature Gran % (Auto) 0.300, Neut % (Auto) 85.6 H, Lymph % (Auto) 8.0 L, [place] % (Auto) 5.9, Eos % (Auto) 0.0, Baso % (Auto) 0.2, Absolute Neuts (auto) 7.5, Absolute Lymphs (auto) 0.70 L, Nucleated RBC % 0 05/09/22 03:49: Sodium 137, Potassium 4.0, Chloride 105, Carbon Dioxide 26.0, Anion Gap 6, BUN 24 H, Creatinine 1.12, Estim Creat Clear Calc 60.22, Est GFR (MDRD) Af Amer 83, Est GFR (MDRD) Non-Af 69, BUN/Creatinine Ratio 21.4 H, Glucose 279 H, Calcium 7.5 L 05/09/22 03:49: Procalcitonin 0.76 H 05/09/22 07:48: POC Glucose 245 H 05/09/22 11:15: POC Glucose 266 H 05/09/22 16:58: POC Glucose 338 H Micro: Microbiology 05/08/22 13:39 Mucosa - Nasopharyngeal Respiratory Panel (PCR) - Final Influenza A (Subtype H1) Radiography Diagnostic Testing: Radiology Impression Chest X-Ray 05/09/22 05:55 IMPRESSION: Subtle opacifications in the right lung base since the previous study, likely atelectasis. No associated effusion. Electronically Signed: Damián Bullock MD at 8:29 EST , Physical Exam Const no apparent distress and well nourished Constitutional Narrative: Morbidly obese, white male, lying in bed, somnolent, on CPAP, appears comfortable, nontoxic at this time HEENT head/scalp atraumatic HEENT Narrative: Mucous membranes are dry from CPAP, Mallampati 3, no thrush Head and Scalp: normocephalic Resp normal respiratory effort, no retractions, no use of accessory muscles and No c lear to auscultation bilaterally Resp Narrative: Scattered rhonchi, no signs of respiratory distress with normal respiratory rate Auscultation: rhonchi; Negative for crackles or wheezes Cardio regular rate, regular rhythm, S1 normal heart sound, S2 normal heart sound, no murmurs, no rub, no gallops and no clicks GI normal to inspection, nondistended, normoactive bowel sounds, soft to palpation and non-tender GI Narrative: PEG in place Extremity Extremity Narrative: Right side is flaccid, withdrawal to stimulus on the left side, right side with trace pitting edema Neuro Neuro Narrative: Difficult cranial nerve exam with global aphasia, patient moves the left side to stimuli, no significant movement of right side with chronic right hemiparesis at baseline, history of global aphasia Assessment & Plan Assessment/Plan (1) Influenza B: (2) UTI (urinary tract infection): (3) Acute respiratory failure with hypoxia: PLAN: Plan Acute hypoxic respiratory failure secondary to influenza AB/+-aspiration -Add Unasyn -Tamiflu -Discontinue IV steroids -As needed albuterol -Continue aggressive pulmonary toilet -As needed nasotracheal suctioning -CPAP as needed -Wean to nasal cannula as able -Baseline nasal cannula is 2 L [id number] at rest -Continue guaifenesin Urinary tract infection -Continue vancomycin for staph UTI until sensitivities have been resulted -Narrow if able once sensitivities identified DARRELL -baseline sCr is 0.8-1 -Creatinine on presentation was 1.72--> down to 1.12 today -Continue IV fluids at 50 cc/h -Continue free water flushes 170 mL with each tube feed bolus 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 -Tube feed and free water for nutrition/hydration Seizures -continue Keppra/gabapentin H/O L MCA Stroke -has residual deficits of R hemiparesis, global aphasia and dysphagia related to this (01/2017) -continue ASA and Plavix -continue risk factor modification -pt has PEG HTN/HPL -continue Lipitor -Continue losartan 50 -Continue gemfibrozil -Continue Zetia DM-2 uncontrolled -Check hemoglobin A1c in a.m. -check in am -continue Lantus 20 u at hs/Log 15 u TID and add SSI coverage if needed -Every 6 hours BGT L ICA Occlusion -continue medical mgt PAD -Continue Pletal -Continue aspirin Chronic constipation -Continue bowel regimen Obesity -BMI is 42.2 -recommend wgt loss -Placate treatment, prognosis, outcomes Depression -continue Celexa DVT prophylaxis -Start Lovenox 40 mg twice daily -SCD Code Status -Full per records from [facility] Charges/Coding Visit Charges Inpatient E&M: 31164 Subs Hosp L2
--- NOTE | 2022-05-09 19:07 | CPS ---
patient is unable to perfrom PEP therapy due to deficits from stroke
[2022-05-09] MEDS: Atorvastatin Calcium 80 MG Tablet GT (23:10)
[2022-05-09] MEDS: Ezetimibe 10 MG Tablet GT (23:12)
[2022-05-09] MEDS: Insulin Glargine-YFGN 100 UNIT/ML Pen 20 UNIT SC (23:32)
[2022-05-09] MEDS: Enoxaparin 40 MG/0.4 ML Syringe SC (23:32)
[2022-05-10] VITALS (23 sets, daily range): BP systolic 103–135; BP diastolic 49–64; PULSE 51–149; RESP 18–24; TEMP 36.3–36.6; O2SAT 92–99
[2022-05-10] MEDS: 0.9% Normal Saline 1,000 ML 50 ML IV (00:48)
--- NOTE | 2022-05-10 02:44 | EKG12_ITS ---
Test Reason : ARHYTHMIA Blood Pressure : / mmHG Vent. Rate : 093 BPM Atrial Rate : 093 BPM P-R Int : 186 ms QRS Dur : 064 ms QT Int : 354 ms P-R-T Axes : 067 070 076 degrees QTc Int : 440 ms Sinus rhythm with frequent Premature ventricular complexes Low voltage QRS Septal infarct , age undetermined Abnormal ECG Confirmed by ARIANNA MILLAN, BERTHA ([id number]), features editor SIRENA NANCE ([id number]) on 05/14/2022 10:46:10 AM Referred By: Confirmed By:BERTHA KELLER MD
[2022-05-10 06:37] LABS: Absolute Lymphocyte Count 1.03 X10^3/uL (0.83-4.51); Absolute Neutrophil Count 8.1 X10^3/uL (2.0-7.7); Basophil# 0.01 X10^3/uL; Basophil% 0.1 % (0-1); Hematocrit 37.4 % (40-54); Hemoglobin 11.8 g/dL (13.0-16.5); Lymphocyte # 1.03 X10^3/ul (0.83-4.51); Lymphocyte % 10.2 % (19-41); Mean Corp Hgb Conc 31.6 g/dL (32-36); Mean Corpuscular Volume 95.2 fL (80-94); Monocyte# 0.89 X10^3/uL; Monocyte% 8.8 % (0-10); NRBC Flagged by Analyzer 0 % (0-5); Neutrophil # 8.07 X10^3/uL (2.7-7.7); Neutrophil % 80.2 % (47-70); Platelet Count 198 K/mm3 (150-450); RBC Distribution Width SD 49.1 fl (35.1-43.9); Red Blood Count 3.93 M/mm3 (4.6-6.2); White Blood Count 10.1 K/mm3 (4.4-11.0)
[2022-05-10] MEDS: Jevity 1.5. 1,000 ML Bottle 220 ML GT ×4 (06:56→18:06)
[2022-05-10] MEDS: Nystatin Powder 15gm Bottle 1 APPLIC TOPICAL ×3 (06:56→20:31)
[2022-05-10] MEDS: Ipratropium/Albuterol Sulfate 3 ML AMPUL.NEB INHALATION ×4 (07:22→19:14)
[2022-05-10 07:23] LABS: ALB/GLOB Ratio 0.7 RATIO (0.9-2.4); AST(SGOT) 22 U/L (15-37); Alanine Aminotransfer ALT/SGPT 22 U/L (16-61); Albumin, Serum 2.5 g/dL (3.2-5.0); Alkaline Phosphatase 64 U/L (45-117); Anion Gap 4 (5-15); BUN 42 mg/dL (7-18); BUN/Creat Ratio 24.6 RATIO (10-20); Calcium,Total 7.8 mg/dL (8.5-10.1); Chloride 109 mmol/L (98-107); Creatinine, Serum 1.71 mg/dL (0.70-1.30); EST Glomerular Filtration Rate 42 mL/min (>60); Est Glom Filt Rate - Afr Amer 51 mL/min (>60); Estimated Creatinine Clearance 39.44 ml/min; Globulin 3.8 g/dL (2.2-4.2); Glucose 394 mg/dL (74-106); Magnesium 3.1 mg/dL (1.6-2.6); Phosphorus 1.9 mg/dL (2.5-4.9); Potassium 3.6 mmol/L (3.5-5.1); Protein, Total 6.3 g/dL (6.4-8.2); Sodium Level 139 mmol/L (136-145); Thyroid Stim Hormone (TSH) 0.26 uIU/mL (0.358-3.74)
--- NOTE | 2022-05-10 08:16 | PCM.PN.INT ---
Assessment & Plan Assessment/Plan (1) Influenza B: PLAN: Plan RECOMMENDATIONS: 1. Consider empiric CPAP therapy with sleep 2. Continue aggressive bronchopulmonary hygiene with nasotracheal suctioning if needed. 3. Continue Tamiflu to complete treatment course. 4. Out of bed as tolerated 5. Continue empiric antimicrobials to cover for potential aspiration as well. 6. Increase basal insulin IMPRESSIONS: 1. Acute on chronic respiratory failure with hypoxia related to influenza A/B The patient presented to the hospital with worsening shortness of breath and hypoxia after being evaluated on May 07, at which time, he tested positive for influenza B. I do suspect that the patient's respiratory difficulties are likely secondary to his inability to effectively mobilize secretions. Patient may require aggressive measures for pulmonary toileting including NT suctioning. The patient may benefit from empiric CPAP therapy with sleep as he is at high risk for obstructive sleep apnea. The patient will be continued on Tamiflu as ordered. He was started on empiric antimicrobials as well to cover for potential aspiration, given his history of dysphagia. Recommend ongoing nutritional support via G-tube. Corticosteroids have been discontinued 2. Staphylococcal urinary tract source of infection Continue antimicrobials as ordered. 3. History of CVA with residual aphasia and hemiparesis/hypertension/hyperlipidemia/diabetes mellitus/morbid obesity Complicates care, management, recovery and prognosis. Continue home medications as indicated. 4. Acute kidney injury/hyperglycemia Patient with significant worsening in renal function overnight. Clinical suspicion is for an element of osmotic diuresis. Insulin will be increased. No indication for renal replacement therapy at this time. This note was generated with [employer] dictation software. It may contain incorrect words, spelling, and punctuation that were not noted in checking the note before signing. Subjective Subjective Patient did have an episode of RVR overnight, but this was improved by my evaluation. Patient still requiring supplemental oxygen to maintain saturations. Patient has had significantly elevated blood sugars overnight. Patient is not reporting any pain Objective Data Objective Data Vital Signs: Vital Signs Temp Pulse Resp BP Pulse Ox O2 Del Method O2 Flow Rate 36.3 C L 83 24 H 115/59 L 92 Nasal Cannula 4 05/10/22 06:45 05/10/22 07:20 05/10/22 07:20 05/10/22 06:45 05/10/22 07:20 05/10/22 07:20 05/10/22 07:20 FiO2 60 05/09/22 23:23 Oxygen Flow Rate (L/min) 4 Oxygen Delivery Method Nasal Cannula Weight: 126 kg Body Mass Index (BMI) 42.2 Intake & Output: Intake and Output for Last 24 Hours 05/08/22 05/09/22 05/10/22 23:59 23:59 23:59 Intake Total 1100 / 1100 2884 / 3274 1467 / 1467 Balance 1100 / 1100 2884 / 3274 1467 / 1467 Lab / Micro Data Attestation: I reviewed the patient's lab results. Result Diagrams: 05/10/22 05:56 05/10/22 05:56 Labs: Laboratory Results - last 24 hr 05/09/22 07:48: POC Glucose 245 H 05/09/22 11:15: POC Glucose 266 H 05/09/22 16:58: POC Glucose 338 H 05/10/22 05:56: WBC 10.1, RBC 3.93 L, Hgb 11.8 L, Hct 37.4 L, MCV 95.2 H, MCH 30.0, MCHC 31.6 L, RDW Std Deviation 49.1 H, RDW Coeff of Corinne 14.0, Plt Count 198, MPV 10.0, Immature Gran % (Auto) 0.700, Neut % (Auto) 80.2 H, Lymph % (Auto) 10.2 L, [place] % (Auto) 8.8, Eos % (Auto) 0.0, Baso % (Auto) 0.1, Absolute Neuts (auto) 8.1 H, Absolute Lymphs (auto) 1.03, Nucleated RBC % 0 05/10/22 05:56: Sodium 139, Potassium 3.6, Chloride 109 H, Carbon Dioxide 26.0, Anion Gap 4 L, BUN 42 H, Creatinine 1.71 H, Estim Creat Clear Calc 39.44, Est GFR (MDRD) Af Amer 51 L, Est GFR (MDRD) Non-Af 42 L, BUN/Creatinine Ratio 24.6 H, Glucose 394 H, Calcium 7.8 L, Phosphorus 1.9 L, Magnesium 3.1 H, Total Bilirubin 0.40, AST 22, ALT 22, Alkaline Phosphatase 64, Total Protein 6.3 L, Albumin 2.5 L, Globulin 3.8, Albumin/Globulin Ratio 0.7 L, TSH 0.26 L Micro: Microbiology 05/08/22 13:39 Mucosa - Nasopharyngeal Respiratory Panel (PCR) - Final Influenza A (Subtype H1) Radiography Diagnostic Testing: Radiology Impression Chest X-Ray 05/09/22 05:55 IMPRESSION: Subtle opacifications in the right lung base since the previous study, likely atelectasis. No associated effusion. Electronically Signed: Damián Bullock MD at 8:29 EST Reading Location ID and State: [facility] / [place] , Service support , Physical Exam Const alert and no apparent distress General Appearance: cooperative HEENT normocephalic and head/scalp atraumatic Eyes PERRL, EOMs intact bilaterally and conjunctivae normal Neck supple General: trachea midline Chest inspection of chest normal Resp Auscultation: rhonchi and diminished lung sounds; Negative for rales or wheezes Cardio regular rate, regular rhythm, S1 normal heart sound, S2 normal heart sound and no murmurs GI normal to inspection, nondistended, normoactive bowel sounds Extremity no clubbing, cyanosis or edema Skin no rashes or lesions noted Neuro Neuro Narrative: Baseline right-sided hemiparesis and aphasia Psych cooperative Charges/Coding Visit Charges Inpatient E&M: 51663 Subs Hosp L3
[2022-05-10] MEDS: Insulin Lispro 100 UNIT/ML INSULN.PEN 15 UNIT SC ×2 (08:27→13:47)
[2022-05-10] MEDS: Insulin Lispro 100 UNIT/ML INSULN.PEN SC ×4 (08:29→22:42)
[2022-05-10 08:56] LABS: Bedside Glucose 419 mg/dL (74-106)
[2022-05-10 09:11] LABS: Hemoglobin A1c 8.6 % (3.8-5.6)
--- NOTE | 2022-05-10 09:19 | CASEMGMT ---
SW Note SW spoke to patient's legal guardian, Khanh Blakely, who confirmed that he is patient's guardian. He indicated plan is for patient to return to [facility]. Humaira CISNEROS
[2022-05-10] MEDS: levETIRAcetam Oral Solution 500 MG/5 ML 750 MG GT ×2 (09:32→18:03)
[2022-05-10] MEDS: Aspirin 81 MG TAB.CHEW GT (09:33)
[2022-05-10] MEDS: Clopidogrel Bisulfate 75 MG Tablet GT (09:34)
[2022-05-10] MEDS: Enoxaparin 40 MG/0.4 ML Syringe SC ×2 (09:34→20:31)
[2022-05-10] MEDS: Losartan Potassium 50 MG Tablet GT (09:34)
[2022-05-10] MEDS: Citalopram 10 MG Tablet GT (09:34)
[2022-05-10] MEDS: Cilostazol 50 MG Tablet 100 MG GT ×2 (09:35→20:30)
[2022-05-10] MEDS: Gabapentin 300 MG Capsule GT ×3 (09:46→18:00)
[2022-05-10] MEDS: OSELTAMIVIR PHOSPHATE 6 MG/ML BOTTLE 75 MG GT ×2 (09:53→20:32)
--- NOTE | 2022-05-10 09:54 | CASEMGMT ---
Addendum entered by Humaira Cheung 05/10/22 13:17: JUDY called Elizabet at [facility] and advised that patient is not being discharged today. Elizabet inquired as to how patient is doing. Elizabet stated staff is concerned about him and if the RN is available to call for update. Humaira CISNEROS Original Note: inquired if patient could go back to [facility] today as tomorrow is new year (2022) JUDY spoke to Jaye at [facility] and asked if patient can return to [facility] under LOC. Jaye said that there is no one to approve that but she will call technical applications scientist and call this process description writer back. Humaira CISNEROS
[2022-05-10] MEDS: Menthol/Lanolin/Calamine/Znox 113 GM Tube 1 APPLIC TOPICAL ×4 (10:02→20:30)
[2022-05-10] MEDS: Insulin Glargine-YFGN 100 UNIT/ML Pen 25 UNIT SC (10:09)
[2022-05-10] MEDS: levoFLOXacin IV 750 MG/150 ML BAG 100 MG IV (10:14)
[2022-05-10 12:38] LABS: Vancomycin, Trough Level 28.8 ug/mL (5.0-15.0)
[2022-05-10] MEDS: levETIRAcetam Oral Solution 500 MG/5 ML GT (14:16)
[2022-05-10 14:55] LABS: Bedside Glucose 387 mg/dL (74-106)
--- NOTE | 2022-05-10 15:08 | PN.HOSP_ITS ---
Subjective Subjective No issues overnight. Patient is now on 4 L nasal cannula and appears to be stable with oxygen saturations in the mid 90s. Objective Data Objective Data Vital Signs: Vital Signs Temp Pulse Resp BP Pulse Ox O2 Del Method O2 Flow Rate 98 F 81 18 126/53 H 99 Nasal Cannula 4 05/10/22 14:00 05/10/22 14:00 05/10/22 14:00 05/10/22 14:00 05/10/22 14:00 05/10/22 14:00 05/10/22 14:00 FiO2 60 05/09/22 23:23 Oxygen Flow Rate (L/min) 4 Oxygen Delivery Method Nasal Cannula Weight: 126 kg Body Mass Index (BMI) 42.2 Intake & Output: Intake and Output for Last 24 Hours 05/08/22 05/09/22 05/10/22 23:59 23:59 23:59 Intake Total 1100 / 1100 2884 / 3274 2118 Balance 1100 / 1100 2884 / 3274 2118 Lab / Micro Data Result Diagrams: 05/10/22 05:56 05/10/22 05:56 Labs: Laboratory Results - last 24 hr 05/09/22 16:58: POC Glucose 338 H 05/10/22 05:56: WBC 10.1, RBC 3.93 L, Hgb 11.8 L, Hct 37.4 L, MCV 95.2 H, MCH 30.0, MCHC 31.6 L, RDW Std Deviation 49.1 H, RDW Coeff of Corinne 14.0, Plt Count 198, MPV 10.0, Immature Gran % (Auto) 0.700, Neut % (Auto) 80.2 H, Lymph % (Auto) 10.2 L, Davison % (Auto) 8.8, Eos % (Auto) 0.0, Baso % (Auto) 0.1, Absolute Neuts (auto) 8.1 H, Absolute Lymphs (auto) 1.03, Nucleated RBC % 0 05/10/22 05:56: Sodium 139, Potassium 3.6, Chloride 109 H, Carbon Dioxide 26.0, Anion Gap 4 L, BUN 42 H, Creatinine 1.71 H, Estim Creat Clear Calc 39.44, Est GFR (MDRD) Af Amer 51 L, Est GFR (MDRD) Non-Af 42 L, BUN/Creatinine Ratio 24.6 H , Glucose 394 H, Calcium 7.8 L, Phosphorus 1.9 L, Magnesium 3.1 H, Total Bilirubin 0.40, AST 22, ALT 22, Alkaline Phosphatase 64, Total Protein 6.3 L, Albumin 2.5 L, Globulin 3.8, Albumin/Globulin Ratio 0.7 L, TSH 0.26 L 05/10/22 05:56: Hemoglobin A1c 8.6 H 05/10/22 08:19: POC Glucose 419 H 05/10/22 11:37: Vancomycin Trough 28.8 H 05/10/22 13:46: POC Glucose 387 H Micro: Microbiology 05/08/22 13:39 Mucosa - Nasopharyngeal Respiratory Panel (PCR) - Final Influenza A (Subtype H1) Physical Exam Const alert, no apparent distress and well nourished Constitutional Narrative: Patient is more alert and answers questions however with his aphasia answers are somewhat nonsensical morbidly obese, white male, was lying in bed with his eyes closed however awakens and looks at me to name, able to interact some HEENT head/scalp atraumatic and moist oral mucous membranes Head and Scalp: normocephalic Resp normal respiratory effort, no retractions, no use of accessory muscles and No clear to auscultation bilaterally Resp Narrative: Rhonchi have resolved, no signs of respiratory distress, currently on 4 L nasal cannula with sats at 99% Auscultation: Negative for crackles, rhonchi or wheezes Cardio regular rate, regular rhythm, S1 normal heart sound, S2 normal heart sound, no murmurs, no rub, no gallops and no clicks GI normal to inspection, nondistended, normoactive bowel sounds, soft to palpation and non-tender GI Narrative: PEG in place-clean and dry with no signs of drainage Extremity Extremity Narrative: Right side is flaccid, withdrawal to stimulus on the left side, right side with trace pitting edema Neuro Neuro Narrative: Difficult cranial nerve exam with global aphasia, patient moves the left side to stimuli, no significant movement of right side with chronic right hemiparesis at baseline, history of global aphasia Psych Psych Narrative: Affect is flat Assessment & Plan Assessment/Plan (1) Influenza B: (2) UTI (urinary tract infection): (3) Acute respiratory failure with hypoxia: PLAN: Plan Acute hypoxic respiratory failure secondary to influenza AB/+-aspiration -Discontinue Unasyn and vancomycin and start Levaquin to cover both pneumonia and his urinary tract infection -Continue Tamiflu -As needed albuterol -Continue aggressive pulmonary toilet -As needed nasotracheal suctioning -CPAP as needed -Wean to nasal cannula as able -Baseline nasal cannula is 2 L [id number]-[id number] at baseline -Currently on 4 L at 99% I discussed with nursing to try to wean him -Continue guaifenesin Staphylococcus haemolyticus urinary tract infection -This is a organism that is sensitive to Levaquin -Antibiotics transition to Levaquin at this time and will need to complete a course for complicated UTI DARRELL -baseline sCr is 0.8-1 -Creatinine on presentation was 1.72--> up to 1.71 -Increase fluids 100 cc/h -Continue free water flushes 170 mL with each tube feed bolus--> may need to increase free water flushes 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 -Tube feed and free water for nutrition/hydration -Discussed hydration with dietitian Seizures -continue Keppra/gabapentin H/O L MCA Stroke -has residual deficits of R hemiparesis, global aphasia and dysphagia related to this (01/2017) -continue ASA and Plavix -continue risk factor modification -pt has PEG HTN/HPL -continue Lipitor -Continue losartan 50 -Continue gemfibrozil -Continue Zetia DM-2 uncontrolled -A1c is 8.6 -check in am -continue Lantus but increase to 30 units from 20 u at hs/continue log but increase from 15 u to 20 and at TID and add SSI coverage if needed -Serum glucose was 394 this morning however patient was on steroids -Every 6 hours BGT L ICA Occlusion -continue medical mgt PAD -Continue Pletal -Continue aspirin Chronic constipation -Continue bowel regimen Obesity -BMI is 42.2 -recommend wgt loss -Placate treatment, prognosis, outcomes Depression -continue Celexa DVT prophylaxis -Continue Lovenox 40 mg twice daily -SCD Code Status -Full per records from [facility] home Charges/Coding Visit Charges Inpatient E&M: 32501 Subs Hosp L2
[2022-05-10] MEDS: Insulin Lispro 100 UNIT/ML INSULN.PEN 20 UNIT SC (18:00)
[2022-05-10 18:41] LABS: Bedside Glucose 341 mg/dL (74-106)
[2022-05-10] MEDS: 0.9% Normal Saline 1,000 ML 100 ML IV (20:29)
[2022-05-10] MEDS: Atorvastatin Calcium 80 MG Tablet GT (20:31)
[2022-05-10] MEDS: Ezetimibe 10 MG Tablet GT (20:33)
[2022-05-10] MEDS: Insulin Glargine-YFGN 100 UNIT/ML Pen 30 UNIT SC (22:43)
[2022-05-10 23:05] LABS: Bedside Glucose 397 mg/dL (74-106)
[2022-05-11] VITALS (8 sets, daily range): BP systolic 136–150; BP diastolic 60–79; PULSE 67–97; RESP 16–22; TEMP 36.4–36.6; O2SAT 94–96
[2022-05-11] MEDS: Jevity 1.5. 1,000 ML Bottle 220 ML GT ×3 (06:00→12:29)
[2022-05-11] MEDS: Nystatin Powder 15gm Bottle 1 APPLIC TOPICAL (06:01)
[2022-05-11] MEDS: Insulin Lispro 100 UNIT/ML INSULN.PEN SC ×2 (06:27→11:37)
[2022-05-11 07:05] LABS: Bedside Glucose 238 mg/dL (74-106)
[2022-05-11] MEDS: Ipratropium/Albuterol Sulfate 3 ML AMPUL.NEB INHALATION ×2 (07:05→10:56)
[2022-05-11 07:40] LABS: Absolute Lymphocyte Count 1.27 X10^3/uL (0.83-4.51); Absolute Neutrophil Count 5.3 X10^3/uL (2.0-7.7); Basophil# 0.01 X10^3/uL; Basophil% 0.1 % (0-1); Eosinophil# 0.01 X10^3/uL; Eosinophils% 0.1 % (0-5); Hematocrit 36.4 % (40-54); Hemoglobin 11.6 g/dL (13.0-16.5); Lymphocyte # 1.27 X10^3/ul (0.83-4.51); Lymphocyte % 17.4 % (19-41); Mean Corp Hgb Conc 31.9 g/dL (32-36); Mean Corpuscular Hgb 30.3 pg (27.0-32.0); Mean Platelet Vol. 9.1 fl (6.2-12.0); Monocyte# 0.72 X10^3/uL; Monocyte% 9.9 % (0-10); NRBC Flagged by Analyzer 0 % (0-5); Neutrophil # 5.25 X10^3/uL (2.7-7.7); Neutrophil % 72.1 % (47-70); Platelet Count 173 K/mm3 (150-450); RBC Distribution Width CV 14.1 % (11.6-14.6); RBC Distribution Width SD 49.4 fl (35.1-43.9); Red Blood Count 3.83 M/mm3 (4.6-6.2); White Blood Count 7.3 K/mm3 (4.4-11.0)
[2022-05-11 07:59] LABS: Anion Gap 4 (5-15); BUN 37 mg/dL (7-18); BUN/Creat Ratio 26.8 RATIO (10-20); Calcium,Total 8.1 mg/dL (8.5-10.1); Chloride 110 mmol/L (98-107); Creatinine, Serum 1.38 mg/dL (0.70-1.30); EST Glomerular Filtration Rate 54 mL/min (>60); Est Glom Filt Rate - Afr Amer 66 mL/min (>60); Estimated Creatinine Clearance 48.88 ml/min; Glucose 288 mg/dL (74-106); Potassium 3.9 mmol/L (3.5-5.1); Sodium Level 144 mmol/L (136-145)
[2022-05-11] MEDS: Insulin Lispro 100 UNIT/ML INSULN.PEN 20 UNIT SC ×2 (08:05→12:25)
[2022-05-11] MEDS: Gabapentin 300 MG Capsule GT ×2 (08:05→12:47)
[2022-05-11] MEDS: levETIRAcetam Oral Solution 500 MG/5 ML 750 MG GT (08:06)
[2022-05-11 08:15] LABS: Bedside Glucose 256 mg/dL (74-106)
--- NOTE | 2022-05-11 08:41 | PCM.PN.INT ---
Assessment & Plan Assessment/Plan (1) Influenza B: PLAN: Plan RECOMMENDATIONS: 1. Consider empiric BiPAP therapy with sleep 2. Continue aggressive bronchopulmonary hygiene with nasotracheal suctioning if needed. 3. Continue Tamiflu to complete treatment course. 4. Out of bed as tolerated 5. Continue empiric antimicrobials to cover for potential aspiration as well. 6. Okay to discharge from my perspective IMPRESSIONS: 1. Acute on chronic respiratory failure with hypoxia related to influenza A/B The patient presented to the hospital with worsening shortness of breath and hypoxia after being evaluated on May 07, at which time, he tested positive for influenza B. I do suspect that the patient's respiratory difficulties are likely secondary to his inability to effectively mobilize secretions. Patient may require aggressive measures for pulmonary toileting including NT suctioning. The patient may benefit from empiric CPAP therapy with sleep as he is at high risk for obstructive sleep apnea. The patient will be continued on Tamiflu as ordered. Patient likely stable to be discharged from a pulmonary perspective. Recommend ongoing nutritional support via G-tube. Corticosteroids have been discontinued 2. Staphylococcal urinary tract source of infection Continue antimicrobials as ordered. 3. History of CVA with residual aphasia and hemiparesis/hypertension/hyperlipidemia/diabetes mellitus/morbid obesity Complicates care, management, recovery and prognosis. Continue home medications as indicated. 4. Acute kidney injury/hyperglycemia Patient with significant worsening in renal function overnight. Clinical suspicion is for an element of osmotic diuresis. Insulin will be increased. No indication for renal replacement therapy at this time. This note was generated with [employer] dictation software. It may contain incorrect words, spelling, and punctuation that were not noted in checking the note before signing. Subjective Subjective Patient did well overnight. No acute issues were reported. Patient was placed on BiPAP to help with sleep, but was down to 2 L/min yesterday of supplemental oxygen. Objective Data Objective Data Vital Signs: Vital Signs Temp Pulse Resp BP Pulse Ox O2 Del Method O2 Flow Rate 36.6 C 83 16 145/60 H 95 Bi-pap 2 05/11/22 07:00 05/11/22 07:00 05/11/22 07:00 05/11/22 07:00 05/11/22 07:00 05/11/22 07:00 05/11/22 02:20 FiO2 60 05/09/22 23:23 Oxygen Flow Rate (L/min) 2 Oxygen Delivery Method Bi-pap Weight: 130 kg Body Mass Index (BMI) 42.2 Intake & Output: Intake and Output for Last 24 Hours 05/09/22 05/10/22 05/11/22 23:59 23:59 23:59 Intake Total 2884 / 3274 5179 / 5229 250 / 250 Balance 2884 / 3274 5179 / 5229 250 / 250 Lab / Micro Data Attestation: I reviewed the patient's lab results. Result Diagrams: 05/11/22 07:24 05/11/22 07:24 Labs: Laboratory Results - last 24 hr 05/10/22 05:56: Hemoglobin A1c 8.6 H 05/10/22 08:19: POC Glucose 419 H 05/10/22 11:37: Vancomycin Trough 28.8 H 05/10/22 13:46: POC Glucose 387 H 05/10/22 17:47: POC Glucose 341 H 05/10/22 22:38: POC Glucose 397 H 05/11/22 06:25: POC Glucose 238 H 05/11/22 07:24: WBC 7.3, RBC 3.83 L, Hgb 11.6 L, Hct 36.4 L, MCV 95.0 H, MCH 30.3, MCHC 31.9 L, RDW Std Deviation 49.4 H, RDW Coeff of Corinne 14.1, Plt Count 173, MPV 9.1, Immature Gran % (Auto) 0.400, Neut % (Auto) 72.1 H, Lymph % (Auto) 17.4 L, Mcduffie % (Auto) 9.9, Eos % (Auto) 0.1, Baso % (Auto) 0.1, Absolute Neuts (auto) 5.3, Absolute Lymphs (auto) 1.27, Nucleated RBC % 0 05/11/22 07:24: Sodium 144, Potassium 3.9, Chloride 110 H, Carbon Dioxide 30.0, Anion Gap 4 L, BUN 37 H, Creatinine 1.38 H, Estim Creat Clear Calc 48.88, Est GFR (MDRD) Af Amer 66, Est GFR (MDRD) Non-Af 54 L, BUN/Creatinine Ratio 26.8 H, Glucose 288 H, Calcium 8.1 L 05/11/22 07:53: POC Glucose 256 H Micro: Microbiology 05/08/22 13:48 Blood Culture (Wb) - Anticubital Left Blood Culture - Preliminary No growth in 48 hours. 05/08/22 13:20 Blood Culture (Wb) - Anticubital Right Blood Culture - Preliminary No growth in 48 hours. 05/08/22 13:39 Mucosa - Nasopharyngeal Respiratory Panel (PCR) - Final Influenza A (Subtype H1) Physical Exam Const alert and no apparent distress Constitutional Narrative: On BiPAP during my evaluation with good synchrony. General Appearance: cooperative HEENT normocephalic and head/scalp atraumatic Eyes PERRL, EOMs intact bilaterally and conjunctivae normal Neck supple General: trachea midline Chest inspection of chest normal Resp Auscultation: diminished lung sounds; Negative for rales, rhonchi or wheezes Cardio regular rate, regular rhythm, S1 normal heart sound, S2 normal heart sound and no murmurs GI normal to inspection, nondistended, normoactive bowel sounds Extremity no clubbing, cyanosis or edema Skin no rashes or lesions noted Neuro Neuro Narrative: Baseline right-sided hemiparesis and aphasia Psych cooperative Charges/Coding Visit Charges Inpatient E&M: 86947 Subs Hosp L2
[2022-05-11] MEDS: Menthol/Lanolin/Calamine/Znox 113 GM Tube 1 APPLIC TOPICAL (09:46)
[2022-05-11] MEDS: levoFLOXacin IV 750 MG/150 ML BAG 100 MG IV (09:46)
[2022-05-11] MEDS: Enoxaparin 40 MG/0.4 ML Syringe SC (09:47)
[2022-05-11] MEDS: Insulin Glargine-YFGN 100 UNIT/ML Pen 30 UNIT SC (09:47)
[2022-05-11] MEDS: OSELTAMIVIR PHOSPHATE 6 MG/ML BOTTLE 75 MG GT (09:47)
[2022-05-11] MEDS: Cilostazol 50 MG Tablet 100 MG GT (09:48)
[2022-05-11] MEDS: Clopidogrel Bisulfate 75 MG Tablet GT (09:48)
[2022-05-11] MEDS: Citalopram 10 MG Tablet GT (09:49)
[2022-05-11] MEDS: Losartan Potassium 50 MG Tablet GT (09:49)
[2022-05-11] MEDS: Aspirin 81 MG TAB.CHEW GT (09:54)
[2022-05-11 11:50] LABS: Bedside Glucose 244 mg/dL (74-106)
[2022-05-11] MEDS: levETIRAcetam Oral Solution 500 MG/5 ML GT (12:25)
--- NOTE | 2022-05-11 12:36 | PCM.DC.SUM ---
Providers Date of Admission: 05/08/22 Date of Discharge: 05/11/22 Primary Care Physician: Dr. 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 / Pulmonary Medicine Routine Consulting Provider: Case Singh Reason for Consult: acute resp failure EMERGENT Consult: No MD Notified: Yes Date Notified: 05/09/22 Time Notified: 07:18 Method of Notification: Text Reason For Visit: FLU B WITH HYPOXIA Diagnosis Discharge Diagnosis (1) Influenza B: Status: Acute Code(s): J10.1 - Influenza due to other identified influenza virus with other respiratory manifestations (2) UTI (urinary tract infection): Status: Acute Code(s): N39.0 - Urinary tract infection, site not specified (3) DARRELL (acute kidney injury): Status: Acute Code(s): N17.9 - Acute kidney failure, unspecified Medications at Discharge Home Medications gabapentin 250 mg/5 mL oral solution (Neurontin) 300 mg G-tube TIDCM Neuropathy 05/11/17 gemfibrozil 600 mg tablet 600 mg G-tube BIDAC CHOLESTEROL 05/11/17 clopidogrel 75 mg tablet 75 mg G-tube DAILY Blood thinner 08/16/17 atorvastatin 80 mg tablet 80 mg G-tube QHS Cholesterol 10/07/17 ezetimibe 10 mg tablet 10 mg GT QHS CHOLESTEROL 01/14/19 acetaminophen 500 mg tablet 1,000 mg feeding tube Q8H PAIN ##0 03/15/20 cilostazol 100 mg tablet 100 mg GT BID PAD 03/15/20 insulin glargine 100 unit/mL (3 mL) subcutaneous pen (Lantus Solostar U-100 Insulin) 20 units subcut QHS DM 03/15/20 insulin lispro 100 unit/mL subcutaneous cartridge 15 unit subcut TIDCM DM 03/15/20 insulin lispro 100 unit/mL subcutaneous cartridge See Protocol SC TIDCM DM 03/15/20 levetiracetam 500 mg tablet 500 mg GT DAILY@1200 SEIZURES 03/15/20 levetiracetam 750 mg tablet 750 mg GT BID SEIZURES 03/15/20 aspirin 81 mg tablet,delayed release 81 mg feeding tube DAILY CAD 04/25/21 citalopram 10 mg tablet 10 mg feeding tube DAILY DEPRESSION 04/25/21 losartan 50 mg tablet 50 mg feeding tube DAILY HTN 04/25/21 acetaminophen 650 mg/20.3 mL oral suspension 650 mg PO Q4H PRN PAIN/FEVER 10/28/21 albuterol sulfate 90 mcg/actuation aerosol inhaler (Ventolin HFA) 1 puff inhalation Q2H PRN SOB 10/28/21 aluminum-mag hydroxide-simethicone 200 mg-200 mg-20 mg/5 mL oral susp (Tari-Lanta) 10 ml feeding tube TID PRN BLOATING 10/28/21 bisacodyl 10 mg rectal suppository 10 mg ME DAILY PRN Constipation 10/28/21 guaifenesin 200 mg/5 mL oral liquid 400 mg PO Q4H PRN Cough 10/28/21 loperamide 2 mg capsule 2 mg PO Q2H PRN Diarrhea 10/28/21 magnesium hydroxide 400 mg/5 mL oral suspension (Milk of Magnesia) 30 ml PO DAILY PRN Constipation 10/28/21 sodium phosphates 19 gram-7 gram/118 mL enema (Enema) 118 ml ME DAILY PRN Constipation 10/28/21 cephalexin 250 mg/5 mL oral suspension 500 mg (10 mL) G-tube Q12H 7 days #140 mL 05/07/22 oseltamivir 6 mg/mL oral suspension (Tamiflu) 75 mg (12.5 mL) feeding tube BID 5 days #125 mL 05/07/22 polyethylene glycol 400 1 % eye drops (Visine Dry Eye Relief) 2 drp LEFT EYE Q2H PRN Dry Eye(S) 05/08/22 levofloxacin 250 mg/10 mL oral solution 750 mg (30 mL) PO DAILY 8 days #240 mL 05/11/22 Hospital Course Operations None Procedures EKG and - (Chest x-ray) Summary of Care Provided Minutes Spent on Discharge: 35 Hospital Course: Mr. Blakely is a 71-year-old who present to the emergency department at [facility] from [place] (longterm at which he resides) secondary to worsening hypoxia. The patient was seen in the emergency department the day prior to presentation for some shortness of breath. He typically wears 2 L of oxygen at rest but was needing 4 L the day prior to presentation. He tested positive for influenza B and was started on Tamiflu. His UA was somewhat suggestive of a urinary tract infection so urine culture was obtained at that time as well as he was started on Keflex twice daily through his PEG. Urine cultures came back with Staphylococcus haemolyticus at greater than 100,000 CFU's per high-power field. In the emergency department on the day of admission he was needing a nonrebreather and there were significant upper airway sounds that he was having difficulty clearing as well as rhonchi in the lungs. His chest x-ray in the emergency department did not show any consolidation and his COVID test that was done the day previous was negative. The patient at baseline has history of stroke with right-sided hemiparesis and severe global aphasia so obtaining a history is quite difficult. He was admitted to the medical floor and placed on broad-spectrum antibiotics including vancomycin and Unasyn. The vancomycin was utilized as initially his Staphylococcus species was not identified and we had no sensitivities to cover MRSA. Unasyn was added to cover aspiration pneumonia. He was seen by speech therapy and they recommended n.p.o. with continued therapy and possible modified barium swallow however we were unable to do this prior to discharge. It is recommended that if it continues to be a concern from speech therapy and eating is within his goals of care that a modified barium swallow be done as an outpatient. He was maintained initially on nonrebreather then to BiPAP but was able to be weaned to 4 L nasal cannula on the second day of his hospitalization. He remained stable and eventually progressed back to his baseline 2 L having oxygen saturations anywhere from 92 to 95% on his 2 L baseline supplemental oxygen. He did have some DARRELL on presentation was a treated with IV fluids. IV fluids were discontinued and his serum creatinine trended up we started IV fluids and increased his free water to 200 cc every 6 hours as well as his tube feed. His serum creatinine improved. I do recommend a repeat BMP in 3 days to reassess volume status. If his serum creatinine trends up he may need increased free water with his tube feeds and close monitoring of his serum creatinine as well as electrolytes. He was maintained on Tamiflu during his hospital course as well and will be discharged on this. He was transition to Levaquin to cover both his aspiration and his urine at the time of discharge and he is to continue this for another 8 days to cover both his pneumonia and complicated urinary tract infection. He was discharged back to [place] in stable condition on his baseline 2 L nasal cannula. He is to follow-up with his primary care physician Juan Francisco in the next 3 to 5 days. Discharge diagnoses: Acute hypoxic respiratory failure secondary to influenza A/aspiration pneumonia Staphylococcus haemolyticus urinary tract infection-complicated DARRELL-resolving Dysphagia Seizures History of MCA stroke Hypertension Hyperlipidemia DM-2 uncontrolled Left ICA occlusion-chronic PAD Chronic constipation Obesity Depression Physical Exam Const no apparent distress and well nourished Constitutional Narrative: Patient is currently wrapped Sting comfortably on CPAP at 2 L bleed as he was seen earlier this morning, appears comfortable nontoxic, per nursing he is clinically much improved General Appearance: comfortable and well kempt Exam Limitations: language barrier Nutritional Appearance: morbidly obese HEENT normocephalic, head/scalp atraumatic and moist oral mucous membranes HEENT Narrative: Dentition is fair, Mallampati is 3 Eyes PERRL, EOMs intact bilaterally and conjunctivae normal Eyes Narrative: No scleral icterus Neck no lymphadenopathy and supple Neck Narrative: Short thick neck, trachea midline, no thyroid enlargement Resp normal respiratory effort, no retractions, no use of accessory muscles and No clear to auscultation bilaterally Resp Narrative: No rhonchi, patient on 2 L nasal cannula at baseline however currently on his CPAP as he is sleeping Auscultation: Negative for crackles, rhonchi or wheezes Cardio regular rate, regular rhythm, S1 normal heart sound, S2 normal heart sound, no murmurs, no rub, no gallops and no clicks Cardio Narrative: Intermittent ectopy GI normal to inspection, nondistended, normoactive bowel sounds, soft to palpation and non-tender GI Narrative: PEG in place-clean and dry with no signs of drainage Extremity Extremity Narrative: Right side is flaccid, withdrawal to stimulus on the left side, right side with trace pitting edema Skin skin turgor normal and no jaundice Skin Narrative: Skin is pale, no significant lesions or wounds noted Neuro Neuro Narrative: Difficult cranial nerve exam with global aphasia, patient moves the left side to stimuli, no significant movement of right side with chronic right hemiparesis at baseline, history of global aphasia Psych Psych Narrative: Affect is flat Weight / BMI Weight Weight: 130 kg Body Mass Index (BMI) 42.2 ABG / Lab / Microbiology Data Result Diagrams: 05/11/22 07:24 05/11/22 07:24 Laboratory: Laboratory Results - last 24 hr 05/10/22 11:37: Vancomycin Trough 28.8 H 05/10/22 13:46: POC Glucose 387 H 05/10/22 17:47: POC Glucose 341 H 05/10/22 22:38: POC Glucose 397 H 05/11/22 06:25: POC Glucose 238 H 05/11/22 07:24: WBC 7.3, RBC 3.83 L, Hgb 11.6 L, Hct 36.4 L, MCV 95.0 H, MCH 30.3, MCHC 31.9 L, RDW Std Deviation 49.4 H, RDW Coeff of Corinne 14.1, Plt Count 173, MPV 9.1, Immature Gran % (Auto) 0.400, Neut % (Auto) 72.1 H, Lymph % (Auto) 17.4 L, [place] % (Auto) 9.9, Eos % (Auto) 0.1, Baso % (Auto) 0.1, Absolute Neuts (auto) 5.3, Absolute Lymphs (auto) 1.27, Nucleated RBC % 0 05/11/22 07:24: Sodium 144, Potassium 3.9, Chloride 110 H, Carbon Dioxide 30.0, Anion Gap 4 L, BUN 37 H, Creatinine 1.38 H, Estim Creat Clear Calc 48.88, Est GFR (MDRD) Af Amer 66, Est GFR (MDRD) Non-Af 54 L, BUN/Creatinine Ratio 26.8 H, Glucose 288 H, Calcium 8.1 L 05/11/22 07:53: POC Glucose 256 H 05/11/22 11:29: POC Glucose 244 H Microbiology: Microbiology 05/08/22 13:48 Blood Culture (Wb) - Anticubital Left Blood Culture - Preliminary No growth in 48 hours. 05/08/22 13:20 Blood Culture (Wb) - Anticubital Right Blood Culture - Preliminary No growth in 48 hours. 05/08/22 13:39 Mucosa - Nasopharyngeal Respiratory Panel (PCR) - Final Influenza A (Subtype H1) Meaningful Use Info Meaningful Use Diagnoses (Choose all that apply): None applicable Discharge Plan Admission Admit Date/Time: 05/08/22 15:22 Primary Reason for Your Visit: Hypoxia Attending Provider: Catalina Romero Primary Care Provider: Marcin Joseph Consulting Providers: Ken Melgoza Derek Discharge Orders/Prescriptions Prescriptions: New levofloxacin 250 mg/10 mL solution 750 mg PO DAILY 8 Days Qty: 240 0RF Continued gabapentin [Neurontin] 250 MG/5 ML solution 300 mg G-tube TIDCM Label Comments: Neuropathy gemfibrozil 600 MG tablet 600 mg G-tube BIDAC clopidogrel 75 MG tablet 75 mg G-tube DAILY Label Comments: Blood thinner atorvastatin 80 MG tablet 80 mg G-tube QHS Label Comments: Cholesterol ezetimibe 10 MG tablet 10 mg GT QHS levetiracetam 750 MG tablet 750 mg GT BID insulin lispro 100 UNIT/ML cartridge 15 unit SC TIDCM insulin glargine [Lantus Solostar U-100 Insulin] 100 UNITS/ML insulin pen 20 units SC QHS insulin lispro 100 UNIT/ML cartridge See Protocol SC TIDCM Protocol: 6. Sliding Scale Insulin Custom Condition: mg/dl range Dose/Route: Number of Units Condition: 151-200 Dose/Route: 2 Condition: 201-250 Dose/Route: 4 Condition: 251-300 Dose/Route: 6 Condition: 301-350 Dose/Route: 8 Condition: 351-400 Dose/Route: 10 Condition: 401-600 Dose/Route: 12 Instruction: CALL Protocol Text: Custom Sliding Scale cilostazol 100 MG tablet 100 mg GT BID levetiracetam 500 MG tablet 500 mg GT DAILY@1200 acetaminophen 500 mg Tablet 1,000 mg feeding tube Q8H Qty: 0 losartan 50 mg tablet 50 mg feeding tube DAILY citalopram 10 mg tablet 10 mg feeding tube DAILY aspirin 81 mg Tablet,Delayed Release (Dr/Ec) 81 mg feeding tube DAILY loperamide 2 mg Capsule 2 mg PO Q2H PRN (Reason: Diarrhea) Rx Instructions: administer after each loose stool until symptoms controlled; do not exceed 8 mg per 24 hrs magnesium hydroxide [Milk of Magnesia] 400 mg/5 mL Suspension 30 ml PO DAILY PRN (Reason: Constipation) bisacodyl 10 mg Suppository 10 mg ME DAILY PRN (Reason: Constipation) Enema 19-7 gram/118 mL Enema 118 ml ME DAILY PRN (Reason: Constipation) alum-mag hydroxide-simeth [Tari-Lanta] 200-200-20 mg/5 mL Suspension 10 ml feeding tube TID PRN (Reason: BLOATING) albuterol sulfate [Ventolin HFA] 90 mcg/actuation Hfa Aerosol Inhaler 1 puff INHALATION Q2H PRN (Reason: SOB) guaifenesin 200 mg/5 mL Liquid 400 mg PO Q4H PRN (Reason: Cough) acetaminophen 650 mg/20.3 mL Suspension 650 mg PO Q4H PRN (Reason: PAIN/FEVER) cephalexin 250 mg/5 mL suspension for reconstitution 500 mg G-tube Q12H 7 Days Qty: 140 0RF oseltamivir [Tamiflu] 6 mg/mL suspension for reconstitution 75 mg feeding tube BID 5 Days Qty: 125 0RF Rx Instructions: END DATE Visine Dry Eye Relief 1 % Drops 2 drp LEFT EYE Q2H PRN (Reason: Dry Eye(S)) Referrals / Follow Up: Marcin Joseph MD [Primary Care Provider] - See Referral Note (In 3 days) Disposition Disposition (needs filled in before D/C Order can be placed): Detention Facility Charges/Coding Visit Charges Inpatient E&M: 90717 SNF Disch >30 Min
--- NOTE | 2022-05-11 12:36 | PCM.TXEXTCAR ---
Diet Diet Order/Speech Therapy: 05/09/22 12:16 NPO [Diet: Nothing Per Oral] Is pt able to select menu?: No Diet Comments: Strict NPO Routine Orders/Code Status Suppository Frequency: Daily PRN O2 Liters per Minute: 2 O2 Frequency: Continuous Keep PO Greater than or Equal to (%): 92 Routine Lab Work: CBC (1 week) and BMP (in 2 days-->may need more free water if creatinine rises) Code Status: Full Code Suggestions for Active Care Change Position every (hours): 2 Hours to sit in a chair: 2 Times a day to sit in chair: 2 Therapies Physical Therapy: Eval and Treat Occupational Therapy: Eval and Treat Speech Therapy: Eval and Treat Problem/Diagnosis (1) Influenza B: Status: Acute Code(s): J10.1 - Influenza due to other identified influenza virus with other respiratory manifestations Allergies/Procedures Done in Hospital Allergies No Known Allergies Allergy (Verified 10/28/21 09:43) Procedures: None Type of Care/Length of Stay Estimated LOS: More Than 30 Days Type of Care Needed: Intermediate Rehab Potential: Poor Prognosis: Fair Additional Orders/Day of Discharge Day of Discharge: 05/11/22 Dietary and Speech Recommendations Dietitian Recommendations/Changes: 1) Via PEG- Jevity 1.5 220mL bolus 6x/day w/ 200mL bolus w/ each feeding to provide 1980 calories, 84 g protein, and 2023mL total fluid/day 2) Continue NPO per FUNERAL [employer]OUSINE DRIVER eval. When appropriate for PO intake, recommend CHO controlled diet w/ texture/consistency modifications per FUNERAL LIMOUSINE DRIVER. Will adjust enteral nutrition if PO diet advanced. 3) Daily wts. Speech Linguistic Eval Summary: Recommeded [facility] [place] Discharge Plan Admission Admit Date/Time: 05/08/22 15:22 Attending Provider: Catalina Romero Primary Care Provider: Marcin Joseph Consulting Providers: Ken Melgoza Derek Discharge Orders/Prescriptions Prescriptions: No Action gabapentin [Neurontin] 250 MG/5 ML solution 300 mg G-tube TIDCM Label Comments: Neuropathy gemfibrozil 600 MG tablet 600 mg G-tube BIDAC clopidogrel 75 MG tablet 75 mg G-tube DAILY Label Comments: Blood thinner atorvastatin 80 MG tablet 80 mg G-tube QHS Label Comments: Cholesterol ezetimibe 10 MG tablet 10 mg GT QHS levetiracetam 750 MG tablet 750 mg GT BID insulin lispro 100 UNIT/ML cartridge 15 unit SC TIDCM insulin glargine [Lantus Solostar U-100 Insulin] 100 UNITS/ML insulin pen 20 units SC QHS insulin lispro 100 UNIT/ML cartridge See Protocol SC TIDCM Protocol: 6. Sliding Scale Insulin Custom Condition: mg/dl range Dose/Route: Number of Units Condition: 151-200 Dose/Route: 2 Condition: 201-250 Dose/Route: 4 Condition: 251-300 Dose/Route: 6 Condition: 301-350 Dose/Route: 8 Condition: 351-400 Dose/Route: 10 Condition: 401-600 Dose/Route: 12 Instruction: CALL MD Protocol Text: Custom Sliding Scale cilostazol 100 MG tablet 100 mg GT BID levetiracetam 500 MG tablet 500 mg GT DAILY@1200 acetaminophen 500 mg Tablet 1,000 mg feeding tube Q8H Qty: 0 losartan 50 mg tablet 50 mg feeding tube DAILY citalopram 10 mg tablet 10 mg feeding tube DAILY aspirin 81 mg Tablet,Delayed Release (Dr/Ec) 81 mg feeding tube DAILY loperamide 2 mg Capsule 2 mg PO Q2H PRN (Reason: Diarrhea) Rx Instructions: administer after each loose stool until symptoms controlled; do not exceed 8 mg per 24 hrs magnesium hydroxide [Milk of Magnesia] 400 mg/5 mL Suspension 30 ml PO DAILY PRN (Reason: Constipation) bisacodyl 10 mg Suppository 10 mg UT DAILY PRN (Reason: Constipation) Enema 19-7 gram/118 mL Enema 118 ml UT DAILY PRN (Reason: Constipation) alum-mag hydroxide-simeth [Tari-Lanta] 200-200-20 mg/5 mL Suspension 10 ml feeding tube TID PRN (Reason: BLOATING) albuterol sulfate [Ventolin HFA] 90 mcg/actuation Hfa Aerosol Inhaler 1 puff INHALATION Q2H PRN (Reason: SOB) guaifenesin 200 mg/5 mL Liquid 400 mg PO Q4H PRN (Reason: Cough) acetaminophen 650 mg/20.3 mL Suspension 650 mg PO Q4H PRN (Reason: PAIN/FEVER) cephalexin 250 mg/5 mL suspension for reconstitution 500 mg G-tube Q12H 7 Days Qty: 140 0RF oseltamivir [Tamiflu] 6 mg/mL suspension for reconstitution 75 mg feeding tube BID 5 Days Qty: 125 0RF Rx Instructions: END DATE Visine Dry Eye Relief 1 % Drops 2 drp LEFT EYE Q2H PRN (Reason: Dry Eye(S)) Referrals / Follow Up: Marcin Jsoeph MD [Primary Care Provider] -
[2022-05-13 08:40] LABS: Bedside Glucose 423 mg/dL (74-106)
[2022-05-13 08:40] LABS: Bedside Glucose 406 mg/dL (74-106)
== END 2022-05-11 14:39 | disposition skilled nursing facility (03) | DRG 177 ==
LOC: ED 15:42 → MS3 16:40
PROVIDERS: Admitting Provider Family Medicine; Emergency Provider Emergency Medicine; PCP Family Medicine; Visit Provider Internal Medicine
DX: J69.0 Pneumonitis due to inhalation of food and vomit (principal); J96.01 Acute respiratory failure with hypoxia; N17.9 Acute kidney failure, unspecified; I69.351 Hemiplegia and hemiparesis following cerebral infarction affecting right dominant side; Z68.41 Body mass index [BMI] 40.0-44.9, adult; N39.0 Urinary tract infection, site not specified; E11.51 Type 2 diabetes mellitus with diabetic peripheral angiopathy without gangrene; B95.7 Other staphylococcus as the cause of diseases classified elsewhere; Z79.4 Long term (current) use of insulin; G40.909 Epilepsy, unspecified, not intractable, without status epilepticus; E66.01 Morbid (severe) obesity due to excess calories; E11.65 Type 2 diabetes mellitus with hyperglycemia; Z93.1 Gastrostomy status; J10.1 Influenza due to other identified influenza virus with other respiratory manifestations; I10 Essential (primary) hypertension; E78.5 Hyperlipidemia, unspecified; K59.09 Other constipation; I65.22 Occlusion and stenosis of left carotid artery; I69.320 Aphasia following cerebral infarction; I69.321 Dysphasia following cerebral infarction; F32.A Depression, unspecified; Z99.81 Dependence on supplemental oxygen; Z79.02 Long term (current) use of antithrombotics/antiplatelets; Z79.82 Long term (current) use of aspirin; Z79.899 Other long term (current) drug therapy
CPT/HCPCS: 36415; 36600; 71045; 80048; 80053; 80076; 80202; 81001; 82803; 82962; 83036; 83605; 83735; 83880; 84100; 84145; 84443; 85025; 85610; 87040; 87077; 87086; 87088; 87186; 87428; 87633; 92526; 92610; 93005; 94640; 94660; 94667; 94668; 96360; 96361; 97163; 97166; 97802; 97803; 99251; 99285; J7030; J7040; J7050; A4216; G0463; J0295

== ENCOUNTER 2022-08-26 13:49 | Inpatient (IN) | payer MEDICARE, MEDICAID, SELFPAY ==
[2022-08-26] VITALS (8 sets, daily range): BP systolic 109–172; BP diastolic 53–87; PULSE 90–108; RESP 13–26; TEMP 36.6–37.9; O2SAT 88–98; BMI 44.0; BMI 43.4
--- NOTE | 2022-08-26 14:02 | ED.RN ---
PER EMS, PT WAS LOW 02 SAT ON ROOM AIR FOR USP. REPORTS SATS WERE 83% PER NURSING STAFF. PER EMS PT [phone] ROOM AIR.
--- NOTE | 2022-08-26 15:00 | EKG12_ITS ---
Test Reason : FEVER Blood Pressure : / mmHG Vent. Rate : 111 BPM Atrial Rate : 111 BPM P-R Int : 170 ms QRS Dur : 072 ms QT Int : 314 ms P-R-T Axes : 042 031 062 degrees QTc Int : 427 ms Sinus tachycardia Low voltage QRS Nonspecific ST abnormality Abnormal ECG Confirmed by IZAIAH MILLAN, MURIEL ([id number]), industrial editor SIRENA NANCE ([id number]) on 09/01/2022 9:49:49 AM Referred By: Confirmed By:MURIEL BLISS MD
--- NOTE | 2022-08-26 15:11 | EX.ED.DYSGE1 ---
HPI History of Present Illness Chief Complaint: Fever Informant: patient Narrative Narrative: Patient is a 72-year-old male with history of global aphasia secondary to stroke, hypertension, hyperlipidemia, dysphagia on PEG tube feeds and diastolic dysfunction with LVH presenting for fever and hypoxia from nursing facility. Patient is a resident of [facility]. Per report patient had extreme shaking and was 83% on room air. He had temperature of 101.5. He was also tachycardic. He had negative COVID test at his facility. Patient is unable to provide any other history at this time. Apparently patient is at his baseline of only answering yes and no questions. Chart review patient's shelter records shows that patient is a full code. He has an order for 2 L oxygen via nasal cannula as needed. When asked the patient normally wears oxygen he says no. Patient appears appears to been prescribed Bactrim today. Is not clear if he had a dose she had or not. [facility] Medical History Anxiety Aphasia Apraxia Convulsions Depression Diabetes Dysphagia Encounter for attention to gastrostomy Heart disease Hemiplegia Hyperlipemia Hypertension PEG (percutaneous endoscopic gastrostomy) adjustment/replacement/removal Peripheral vascular disease Sleep apnea Stroke/cerebrovascular accident Home Medications gemfibrozil 600 mg tablet 600 mg G-tube BIDAC CHOLESTEROL 05/11/17 [History Last Taken 08/26/22] clopidogrel 75 mg tablet 75 mg G-tube DAILY Blood thinner 08/16/17 [History Last Taken 08/26/22] atorvastatin 80 mg tablet 80 mg G-tube QHS Cholesterol 10/07/17 [History Last Taken 08/25/22] ezetimibe 10 mg tablet 10 mg GT QHS CHOLESTEROL 01/14/19 [History Last Taken 08/25/22] acetaminophen 500 mg tablet 1,000 mg feeding tube Q8H PAIN ##0 03/15/20 [History Last Taken 08/26/22] cilostazol 100 mg tablet 100 mg GT BID PAD 03/15/20 [History Last Taken 08/26/22] insulin glargine 100 unit/mL (3 mL) subcutaneous pen (Lantus Solostar U-100 Insulin) 25 units subcut QHS DM 03/15/20 [History Last Taken 08/25/22] insulin lispro 100 unit/mL subcutaneous cartridge 15 unit subcut TIDCM DM 03/15/20 [History Last Taken 08/26/22] insulin lispro 100 unit/mL subcutaneous cartridge See Protocol SC TIDCM DM 03/15/20 [History Last Taken 08/26/22] levetiracetam 500 mg tablet 500 mg GT DAILY@1600 SEIZURES 03/15/20 [History Last Taken 08/25/22] levetiracetam 750 mg tablet 750 mg GT BID SEIZURES 03/15/20 [History Last Taken 08/26/22] aspirin 81 mg tablet,delayed release 81 mg feeding tube DAILY CAD 04/25/21 [History Last Taken 08/26/22] citalopram 10 mg tablet 10 mg feeding tube DAILY DEPRESSION 04/25/21 [History Last Taken 08/26/22] losartan 50 mg tablet 50 mg feeding tube DAILY HTN 04/25/21 [History Last Taken 08/26/22] acetaminophen 650 mg/20.3 mL oral suspension 650 mg PO Q4H PRN PAIN/FEVER 10/28/21 [History Last Taken 08/25/22] aluminum-mag hydroxide-simethicone 200 mg-200 mg-20 mg/5 mL oral susp (Tari-Lanta) 10 ml feeding tube TID PRN BLOATING 10/28/21 [History Last Taken 08/25/22] gabapentin 300 mg capsule 300 mg feeding tube TID NEUROPATHY 08/26/22 [History Last Taken 08/26/22] sulfamethoxazole 800 mg-trimethoprim 160 mg tablet (Bactrim DS) 1 tab feeding tube Q12H 08/26/22 [History Last Taken Unknown] Allergy/AdvReac Type Severity Reaction Status Date / Time No Known Allergies Allergy Verified 10/28/21 09:43 Surgical History Status post abdominal aortic aneurysm repair Social History Smoking Status: Never smoker substance use type: does not use ROS ROS ED Review of Systems ROS Unobtainable: other Details: Nonverbal, global aphasia at baseline Constitutional Constitutional ED: Reports fever(s) EXAM Physical Exam Const Vital Signs: 08/26/22 14:00 08/26/22 14:44 08/26/22 14:44 Temperature 100.2 F H Temperature Source Temporal Pulse Rate 108 H Respiratory Rate 18 Respiratory Effort Blood Pressure 172/87 H Blood Pressure Mean 115 Pulse Ox 91 88 96 Oxygen Delivery Method Room Air Room Air Nasal Cannula Oxygen Flow Rate (L/min) 2 08/26/22 15:21 08/26/22 15:21 08/26/22 16:18 Temperature 100.2 F H Temperature Source Temporal Pulse Rate 107 H Respiratory Rate 26 H Respiratory Effort Normal Non-Labored Blood Pressure 127/81 H Blood Pressure Mean 96 Pulse Ox 95 Oxygen Delivery Method Nasal Cannula Nasal Cannula Oxygen Flow Rate (L/min) 2 2 08/26/22 16:00 08/26/22 16:00 08/26/22 17:10 Temperature 99.6 F H 99.6 F H 99.6 F H Temperature Source Oral Oral Oral Pulse Rate 92 92 98 Respiratory Rate 21 H 21 H 22 H Respiratory Effort Blood Pressure 109/66 109/66 123/53 H Blood Pressure Mean 80 80 76 Pulse Ox 96 96 96 Oxygen Delivery Method Nasal Cannula Nasal Cannula Nasal Cannula Oxygen Flow Rate (L/min) 2 2 2 08/26/22 17:10 Temperature Temperature Source Pulse Rate 98 Respiratory Rate 22 H Respiratory Effort Blood Pressure 123/53 H Blood Pressure Mean 76 Pulse Ox 95 Oxygen Delivery Method Nasal Cannula Oxygen Flow Rate (L/min) 2 Positive obese Constitutional Narrative: Nontoxic but chronically ill-appearing. Obese. Nutritional Appearance: obese HEENT Reports dry mucous membranes Mouth ED: Yes dry mucous membranes Mouth: dry mucous membranes Eyes PERRL and EOMs intact bilaterally Neck supple Resp normal respiratory effort Resp Narrative: Diminished breath sounds. Seems that there is coarse breath sounds at the left base however difficult secondary to body habitus and positioning of the patient. Cardio regular rhythm and no murmurs Rate: tachycardic GI GI Narrative: Protuberant abdomen. PEG tube in place. There is questionable purulent discharge from the PEG tube site however it could be his tube feed makes it is refluxing. There is some mild associated erythema around the PEG tube site. Auscultation: normoactive bowel sounds Palpation: soft; Negative for tender or guarding Extremity normal to inspection General Extremety ED: Yes edema General Extremity: edema Neuro Neuro Narrative: Global aphasia Sensorium / Orientation: alert Motor Exam: general weakness Psych mental status grossly normal Skin Skin Narrative: Mild erythema around PEG tube site. No other rash appreciated at this time. Sepsis Attestation Sepsis Alert: Yes Sepsis Attestation: Agree w/Sepsis Date exam was performed: 08/26/22 Time exam was performed: 16:53 Possible Source of Sepsis: Pulmonary Sepsis Organ Dysfunction Criteria Present: Lactic Acid > 2 mmol/L Fluid Resuscitation Fluid resuscitation indicated?: Yes Fluid Resuscitation ordered: Lesser volume fluid bolus ordered Reason for lesser fluid bolus:: Other (Patient is morbidly obese. Is given 30 cc/kg fluid order per adjusted body weight) MDM MDM MDM Narrative Medical decision making narrative: Patient is evaluated for hypoxia and fever and nursing facility. He is shaking. I suspect this is rigors associate with his fever. Patient does meet sepsis criteria. Given his hypoxia I will presume this is a respiratory source however source is not entirely clear. He is started on broad-spectrum antibiotics, vancomycin and Zosyn. Chest x-ray does not show any acute process however he does have a history of aspiration pneumonia. Patient is admitted to the medical service. Case is discussed with admitting physician, Dr. Padilla. History & Record Review Discussion w/independent historian: EMS personnel and Other (USP ) Lab Data Attestation: I reviewed the patient's lab results. Labs: Laboratory Results - last 24 hr 08/26/22 08/26/22 08/26/22 15:05 15:05 15:05 WBC 16.6 H RBC 4.56 L Hgb 13.7 Hct 43.0 MCV 94.3 H MCH 30.0 MCHC 31.9 L RDW Std Deviation 47.3 H RDW Coeff of Corinne 13.7 Plt Count 243 MPV 9.1 Immature Gran % (Auto) 0.700 Neut % (Auto) 81.3 H Lymph % (Auto) 7.3 L [place] % (Auto) 9.7 Eos % (Auto) 0.6 Baso % (Auto) 0.4 Absolute Neuts (auto) 13.5 H Absolute Lymphs (auto) 1.21 Nucleated RBC % 0 Differential Comment SCANNED Diff Path Review May foll PT 13.6 INR 1.1 APTT 31.3 Sodium 138 Potassium 4.1 Chloride 106 Carbon Dioxide 30.0 Anion Gap 2 L BUN 23 H Creatinine 1.21 Estim Creat Clear Calc 54.96 Est GFR (MDRD) Af Amer 76 Est GFR (MDRD) Non-Af 63 BUN/Creatinine Ratio 19.0 Glucose 198 H Lactic Acid Calcium 9.3 Total Bilirubin 0.50 AST 11 L ALT 20 Alkaline Phosphatase 109 Total Protein 8.0 Albumin 3.4 Globulin 4.6 H Albumin/Globulin Ratio 0.7 L Urine Color Urine Clarity Urine pH Ur Specific [place] Urine Protein Urine Glucose (UA) Urine Ketones Urine Occult Blood Urine Nitrite Urine Bilirubin Urine Urobilinogen Ur Leukocyte Esterase Urine RBC Urine WBC Ur Squamous Epith Cells Urine Bacteria Urine Mucus 08/26/22 08/26/22 15:05 15:54 WBC RBC Hgb Hct MCV MCH MCHC RDW Std Deviation RDW Coeff of Corinne Plt Count MPV Immature Gran % (Auto) Neut % (Auto) Lymph % (Auto) [place] % (Auto) Eos % (Auto) Baso % (Auto) Absolute Neuts (auto) Absolute Lymphs (auto) Nucleated RBC % Differential Comment Diff Path Review PT INR APTT Sodium Potassium Chloride Carbon Dioxide Anion Gap BUN Creatinine Estim Creat Clear Calc Est GFR (MDRD) Af Amer Est GFR (MDRD) Non-Af BUN/Creatinine Ratio Glucose Lactic Acid 2.6 H* Calcium Total Bilirubin AST ALT Alkaline Phosphatase Total Protein Albumin Globulin Albumin/Globulin Ratio Urine Color Yellow Urine Clarity Clear Urine pH 5.0 Ur Specific [place] 1.020 Urine Protein 30 H Urine Glucose (UA) 1000 H Urine Ketones Negative Urine Occult Blood 10 H Urine Nitrite Negative Urine Bilirubin Negative Urine Urobilinogen Normal Ur Leukocyte Esterase Negative Urine RBC 0-5 SEEN Urine WBC 0 SEEN Ur Squamous Epith Cells 0 SEEN Urine Bacteria 0 SEEN Urine Mucus 0 SEEN Radiography Chest X-Ray - ED: 1 View, Read by ED Physician, Read by Radiologist and No Acute Disease Diagnostic Testing: Clinical Impression(s) from Imaging Studies Chest X-Ray 08/26/22 16:25 IMPRESSION: Degenerative changes, as described above. No demonstrated acute cardiopulmonary process. Interval resolution of right basilar density seen on the prior study. Electronically Signed: Salvatore Mosher DO at 16:43 EDT Reading Location ID and State: [address] [place] [address] Tel [phone], Service support , Abdomen/Pelvis CT 08/26/22 17:36 IMPRESSION: 1. Gastrostomy tube without evidence of associated inflammatory process. 2. No evidence of acute intra-abdominal process or major interval change. Electronically Signed: Salvatore Mosher DO at 18:52 EDT Reading Location ID and State: [address] [place] [address] Tel [phone], Service support , Rhythm Strip Rhythm Strip: Sinus Tach Rate: 111 Ectopy: None EKG Initial EKG: Attestation: I personally reviewed and interpreted this EKG as follows: Interpretation: Sinus Tachycardia Comments: Sinus tachycardia rate of 111 bpm Low voltage QRS Normal intervals Normal ST segments Management Discussion w/another healthcare provider: Hospitalist Discharge Plan Dx/Rx/DC Orders Clinical Impression: Altered mental status, unspecified, Sepsis, Hypoxia Disposition Disposition: Acute Care Hospital [facility] Discharge Date/Time: 08/26/22 18:58
[2022-08-26 15:24] LABS: Absolute Lymphocyte Count 1.21 X10^3/uL (0.83-4.51); Absolute Neutrophil Count 13.5 X10^3/uL (2.0-7.7); Basophil# 0.07 X10^3/uL; Basophil% 0.4 % (0-1); Eosinophils% 0.6 % (0-5); Hemoglobin 13.7 g/dL (13.0-16.5); Lymphocyte # 1.21 X10^3/ul (0.83-4.51); Lymphocyte % 7.3 % (19-41); Mean Corp Hgb Conc 31.9 g/dL (32-36); Mean Corpuscular Volume 94.3 fL (80-94); Mean Platelet Vol. 9.1 fl (6.2-12.0); Monocyte# 1.61 X10^3/uL; Monocyte% 9.7 % (0-10); NRBC Flagged by Analyzer 0 % (0-5); Neutrophil % 81.3 % (47-70); POSITIVE DIFFERENTIAL YES; Platelet Count 243 K/mm3 (150-450); RBC Distribution Width CV 13.7 % (11.6-14.6); RBC Distribution Width SD 47.3 fl (35.1-43.9); Red Blood Count 4.56 M/mm3 (4.6-6.2); White Blood Count 16.6 K/mm3 (4.4-11.0)
[2022-08-26] MEDS: 0.9% Normal Saline 1,000 ML 999 ML IV ×3 (15:25→18:04)
[2022-08-26 15:31] LABS: Differential Indicated SCAN CRITERIA MET
[2022-08-26] MEDS: Acetaminophen 650 MG/20 ML UDC GT (15:32)
[2022-08-26 15:37] LABS: International Normalized Ratio 1.1; Prothrombin Time (Protime)PT. 13.6 SECONDS (11.7-14.9)
[2022-08-26 15:38] LABS: Partial Thromboplast Time 31.3 Seconds (24.1-36.2)
[2022-08-26 15:41] LABS: ALB/GLOB Ratio 0.7 RATIO (0.9-2.4); AST(SGOT) 11 U/L (15-37); Alanine Aminotransfer ALT/SGPT 20 U/L (16-61); Albumin, Serum 3.4 g/dL (3.2-5.0); Alkaline Phosphatase 109 U/L (45-117); Anion Gap 2 (5-15); BUN 23 mg/dL (7-18); Calcium,Total 9.3 mg/dL (8.5-10.1); Chloride 106 mmol/L (98-107); Creatinine, Serum 1.21 mg/dL (0.70-1.30); EST Glomerular Filtration Rate 63 mL/min (>60); Est Glom Filt Rate - Afr Amer 76 mL/min (>60); Estimated Creatinine Clearance 54.96 ml/min; Globulin 4.6 g/dL (2.2-4.2); Glucose 198 mg/dL (74-106); Potassium 4.1 mmol/L (3.5-5.1); Sodium Level 138 mmol/L (136-145)
[2022-08-26 15:49] LABS: Differential Comment SCANNED
[2022-08-26 15:52] LABS: Lactic Acid 2.6 mmol/L (0.4-1.9)
[2022-08-26 16:02] LABS: Bacteria 0 SEEN /hpf (None Seen); Mucous, Urine 0 SEEN /hpf (<or=2+); Squamous Epithelial Cells - UA 0 SEEN /hpf (0-5); White Blood Cells 0 SEEN /hpf (0-5)
[2022-08-26 16:14] LABS: Color, Urine Yellow (Yellow); Glucose, Dipstick 1000 mg/dl (Normal); Ketone-Dipstick Negative (Negative); Leukocyte Esterase-Dipstick Negative /ul (Negative); Nitrite-Dipstick Negative (Negative); Occult Blood-Urine 10 /ul (Negative); Protein-Dipstick 30 mg/dl (Negative); Urine Bilirubin Dipstick Negative (Negative); Urine Clarity Clear (Clear); Urine Urobilinogen Normal (Normal)
[2022-08-26 16:20] LABS: Red Blood Cells-Urine 0-5 SEEN /hpf (0-5)
--- NOTE | 2022-08-26 16:25 | RAD_ITS ---
STUDY: X-RAY CHEST REASON FOR EXAM: Male, 72 years old. Fever, nausea and vomiting and shakiness. TECHNIQUE: Single AP portable view of the chest. COMPARISON: May 09, 2022 FINDINGS: The lungs are clear and expanded. There is no demonstrated pleural abnormality. Normal size heart. Normal mediastinum and brittany. Normal visualized pulmonary arteries. Normal visualized aortic arch and descending thoracic aorta. There are diffuse degenerative changes of the visualized thoracic spine. There is degenerative osteoarthritis of the bilateral shoulders. There is no demonstrated abnormality of the visualized soft tissue structures of the upper abdomen. RAD/Chest 1 View (Portable) IMPRESSION: Degenerative changes, as described above. No demonstrated acute cardiopulmonary process. Interval resolution of right basilar density seen on the prior study. Electronically Signed: Salvatore Mosher DO at 16:43 EDT ,
--- NOTE | 2022-08-26 16:26 | ED.RN ---
SPOKE WITH BROTHER, MARÍA JULY REGARDING PATIENT. HE REQUESTS TO BE CALLED WHEN WE KNOW IF PT WILL BE ADMITTED OR SENT BACK TO [place].
--- NOTE | 2022-08-26 17:36 | CT_ITS ---
STUDY: CT ABDOMEN AND PELVIS WITH CONTRAST REASON FOR EXAM: Male, 72 years old. Sepsis. Possible ostomy tract infection. RADIATION DOSAGE (If Supplied By Facility): CTDIvol = ( 15.42 ) mGy, DLP = ( 1323.22 ) mGycm TECHNIQUE: IV 100mL Isovue-370 was administered. Transaxial images were obtained from the dome of the diaphragm to the symphysis pubis. Multiplanar coronal and sagittal images were reformatted. Individualized Dose Optimization Techniques Were Used For This CT. COMPARISON: June 21, 2021. FINDINGS: The visualized lung bases are unremarkable. The visualized portions of the heart are within normal limits. Normal liver. Normal gallbladder and extrahepatic biliary system. Normal spleen. Normal pancreas. Normal bilateral adrenal glands. The gastrostomy tube with its balloon in the body of the otherwise collapsed stomach. There is no evidence of inflammatory change or fluid collections about the gastrostomy site. Normal small intestine. Scattered sigmoid diverticuli without acute inflammatory change. The appendix is visualized and appears normal. There is evidence of an aortobifemoral bypass graft. The picayune iliac arteries are heavily calcified. Normal IVC. No retroperitoneal adenopathy. Normal right kidney. Normal left kidney. Normal visualized Normal urinary bladder. Prostate is mildly enlarged. No pelvic lymphadenopathy. No free air or free fluid is seen within the peritoneal cavity. Normal abdominal wall. There are diffuse degenerative changes of the visualized lumbar spine. CT/Abdomen/Pelvis WITH Contrast IMPRESSION: 1. Gastrostomy tube without evidence of associated inflammatory process. 2. No evidence of acute intra-abdominal process or major interval change. Electronically Signed: Salvatore Mosher DO at 18:52 EDT ,
--- NOTE | 2022-08-26 17:54 | PCM.HP.STD ---
HPI - General General Date of Admission: 08/26/22 Date of Service: 08/26/22 Chief Complaint: Fever HPI Narrative JUANY MCDOWELL, is a 72 M long term resident with a history of global aphasia from a stroke. Patient not able to provide any history. ED physician obtained history from long term. Presented to the hospital after being found to be having a fever of 101 ?F. Here patient found to have a temperature of 102 ?F. Was also noted to be hypoxic at the long term. Patient was 83% on room air. It appears patient is supposed to be on supplemental oxygen as needed. Patient was placed on 2 L/min here and oxygen saturation is 96% currently. [facility] Medical History Anxiety Aphasia Apraxia Convulsions Depression Diabetes Dysphagia Encounter for attention to gastrostomy Heart disease Hemiplegia Hyperlipemia Hypertension PEG (percutaneous endoscopic gastrostomy) adjustment/replacement/removal Peripheral vascular disease Sleep apnea Stroke/cerebrovascular accident Home Medications gemfibrozil 600 mg tablet 600 mg G-tube BIDAC CHOLESTEROL 05/11/17 [History Last Taken 08/26/22] clopidogrel 75 mg tablet 75 mg G-tube DAILY Blood thinner 08/16/17 [History Last Taken 08/26/22] atorvastatin 80 mg tablet 80 mg G-tube QHS Cholesterol 10/07/17 [History Last Taken 08/25/22] ezetimibe 10 mg tablet 10 mg GT QHS CHOLESTEROL 01/14/19 [History Last Taken 08/25/22] acetaminophen 500 mg tablet 1,000 mg feeding tube Q8H PAIN ##0 03/15/20 [History Last Taken 08/26/22] cilostazol 100 mg tablet 100 mg GT BID PAD 03/15/20 [History Last Taken 08/26/22] insulin glargine 100 unit/mL (3 mL) subcutaneous pen (Lantus Solostar U-100 Insulin) 25 units subcut QHS DM 03/15/20 [History Last Taken 08/25/22] insulin lispro 100 unit/mL subcutaneous cartridge 15 unit subcut TIDCM DM 03/15/20 [History Last Taken 08/26/22] insulin lispro 100 unit/mL subcutaneous cartridge See Protocol SC TIDCM DM 03/15/20 [History Last Taken 08/26/22] levetiracetam 500 mg tablet 500 mg GT DAILY@1600 SEIZURES 03/15/20 [History Last Taken 08/25/22] levetiracetam 750 mg tablet 750 mg GT BID SEIZURES 03/15/20 [History Last Taken 08/26/22] aspirin 81 mg tablet,delayed release 81 mg feeding tube DAILY CAD 04/25/21 [History Last Taken 08/26/22] citalopram 10 mg tablet 10 mg feeding tube DAILY DEPRESSION 04/25/21 [History Last Taken 08/26/22] losartan 50 mg tablet 50 mg feeding tube DAILY HTN 04/25/21 [History Last Taken 08/26/22] acetaminophen 650 mg/20.3 mL oral suspension 650 mg PO Q4H PRN PAIN/FEVER 10/28/21 [History Last Taken 08/25/22] aluminum-mag hydroxide-simethicone 200 mg-200 mg-20 mg/5 mL oral susp (Tari-Lanta) 10 ml feeding tube TID PRN BLOATING 10/28/21 [History Last Taken 08/25/22] gabapentin 300 mg capsule 300 mg feeding tube TID NEUROPATHY 08/26/22 [History Last Taken 08/26/22] sulfamethoxazole 800 mg-trimethoprim 160 mg tablet (Bactrim DS) 1 tab feeding tube Q12H 08/26/22 [History Last Taken Unknown] Allergy/AdvReac Type Severity Reaction Status Date / Time No Known Allergies Allergy Verified 10/28/21 09:43 Surgical History Status post abdominal aortic aneurysm repair Social History Smoking Status: Never smoker substance use type: does not use ROS ROS Narrative Unable to obtain due to altered mental status. Vital Signs Vital Signs Vital Signs: 08/26/22 14:00 08/26/22 14:44 08/26/22 14:44 Temperature 37.9 C H Temperature Source Temporal Pulse Rate 108 H Respiratory Rate 18 Respiratory Effort Blood Pressure 172/87 H Blood Pressure Mean 115 Pulse Ox 91 88 96 Oxygen Delivery Method Room Air Room Air Nasal Cannula Oxygen Flow Rate (L/min) 2 08/26/22 15:21 08/26/22 15:21 08/26/22 16:18 Temperature 37.9 C H Temperature Source Temporal Pulse Rate 107 H Respiratory Rate 26 H Respiratory Effort Normal Non-Labored Blood Pressure 127/81 H Blood Pressure Mean 96 Pulse Ox 95 Oxygen Delivery Method Nasal Cannula Nasal Cannula Oxygen Flow Rate (L/min) 2 2 08/26/22 16:00 08/26/22 16:00 08/26/22 17:10 Temperature 37.6 C H 37.6 C H 37.6 C H Temperature Source Oral Oral Oral Pulse Rate 92 92 98 Respiratory Rate 21 H 21 H 22 H Respiratory Effort Blood Pressure 109/66 109/66 123/53 H Blood Pressure Mean 80 80 76 Pulse Ox 96 96 96 Oxygen Delivery Method Nasal Cannula Nasal Cannula Nasal Cannula Oxygen Flow Rate (L/min) 2 2 2 08/26/22 17:10 Temperature Temperature Source Pulse Rate 98 Respiratory Rate 22 H Respiratory Effort Blood Pressure 123/53 H Blood Pressure Mean 76 Pulse Ox 95 Oxygen Delivery Method Nasal Cannula Oxygen Flow Rate (L/min) 2 Weight Weight: 131.3 kg Body Mass Index (BMI) 44.0 Physical Exam Narrative General exam. Elderly man, morbidly obese, mildly ill-appearing Warm to the touch HEENT. Oral mucosa slightly dry no pallor or jaundice Neck. Neck is supple Heart. First and second heart sounds. Tachycardic. Lungs. Slightly diminished breath sounds in the bases Abdomen PEG tube noted. Surrounding skin erythematous but not overtly inflamed or tender. Seropurulent drainage from the site. No malodor. [employer]. Right-sided weakness, aphasia. Awake and alert. Results Medical Records Data Attestation: I reviewed the patient's medical records Lab / Micro Data Attestation: I reviewed the patient's lab results. Result Diagrams: 08/26/22 15:05 08/26/22 15:05 Labs: Laboratory Results - last 24 hr 08/26/22 15:05: WBC 16.6 H, RBC 4.56 L, Hgb 13.7, Hct 43.0, MCV 94.3 H, MCH 30.0, MCHC 31.9 L, RDW Std Deviation 47.3 H, RDW Coeff of Corinne 13.7, Plt Count 243, MPV 9.1, Immature Gran % (Auto) 0.700, Neut % (Auto) 81.3 H, Lymph % (Auto) 7.3 L, Prent[place] % (Auto) 9.7, Eos % (Auto) 0.6, Baso % (Auto) 0.4, Absolute Neuts (auto) 13.5 H, Absolute Lymphs (auto) 1.21, Nucleated RBC % 0, Differential Comment SCANNED, Diff Path Review September08/26/22 15:05: PT 13.6, INR 1.1, APTT 31.3 08/26/22 15:05: Sodium 138, Potassium 4.1, Chloride 106, Carbon Dioxide 30.0, Anion Gap 2 L, BUN 23 H, Creatinine 1.21, Estim Creat Clear Calc 54.96, Est GFR (MDRD) Af Amer 76, Est GFR (MDRD) Non-Af 63, BUN/Creatinine Ratio 19.0, Glucose 198 H, Calcium 9.3, Total Bilirubin 0.50, AST 11 L, ALT 20, Alkaline Phosphatase 109, Total Protein 8.0, Albumin 3.4, Globulin 4.6 H, Albumin/Globulin Ratio 0.7 L 08/26/22 15:05: Lactic Acid 2.6 H* 08/26/22 15:54: Urine Color Yellow, Urine Clarity Clear, Urine pH 5.0, Ur Specific [place] 1.020, Urine Protein 30 H, Urine Glucose (UA) 1000 H, Urine Ketones Negative, Urine Occult Blood 10 H, Urine Nitrite Negative, Urine Bilirubin Negative, Urine Urobilinogen Normal, Ur Leukocyte Esterase Negative, Urine RBC 0-5 SEEN, Urine WBC 0 SEEN, Ur Squamous Epith Cells 0 SEEN, Urine Bacteria 0 SEEN, Urine Mucus 0 SEEN Micro: Microbiology 08/26/22 15:26 Nasal Secretion SARS-CoV-2 & FLU Antigen (Rapid) - Final Rhythm Strip Rhythm Strip: Sinus Tach Rate: 111 Ectopy: None Radiology Impression Chest X-Ray 08/26/22 16:25 IMPRESSION: Degenerative changes, as described above. No demonstrated acute cardiopulmonary process. Interval resolution of right basilar density seen on the prior study. Electronically Signed: Salvatore Mosher DO at 16:43 EDT Reading Location ID and State: [address] [place] [address] Tel [phone], Service support , Assessment & Plan Assessment/Plan (1) Sepsis: PLAN: Plan Assessment and plan 1. Sepsis. Unclear source. Suspect gastrostomy tract infection. Reasonable to do a CT scan of the abdomen pelvis to determine if any underlying infectious processes. Chest x-ray not suggestive of any definite infiltrates that would be indicative of pneumonia. Placed on sepsis. IV vancomycin and Zosyn. Follow-up on urine and blood cultures. Keep on telemetry. 2. Global aphasia, right-sided hemiplegia and dysphagia from prior stroke. Resume PEG tube feeding. 3. Type 2 diabetes. Resume home regimen of basal and mealtime insulin. 4. Chronic hypoxic respiratory failure. Continue supplemental oxygen at 2 L/min. Sepsis Attestation Sepsis Attestation: Agree w/Sepsis Charges/Coding Visit Charges Inpatient E&M: 26362 Init Hosp L3
--- NOTE | 2022-08-26 18:03 | NURSING ---
MED SURG [facility] SEPSIS, HYPOXIA
[2022-08-26 19:19] LABS: Reflex Lactate? Y
[2022-08-26 19:46] LABS: Bedside Glucose 189 mg/dL (74-106)
[2022-08-26] MEDS: Lactated Ringers 1,000 ML 100 ML IV (19:58)
[2022-08-26 20:04] LABS: Lactic Acid 1.2 mmol/L (0.4-1.9)
--- NOTE | 2022-08-26 20:26 | PCM.RX.CS ---
Consult Pharmacy has been consulted to manage selected antiobiotic: Vancomycin Type of Consult: New start Suspected Infection: Sepsis Labs: Sodium 138 mmol/L (136-145) 08/26/22 15:05 Potassium 4.1 mmol/L (3.5-5.1) 08/26/22 15:05 Chloride 106 mmol/L (98-107) 08/26/22 15:05 Carbon Dioxide 30.0 mmol/L (21.0-32.0) 08/26/22 15:05 Anion Gap 2 (5-15) L 08/26/22 15:05 BUN 23 mg/dL (7-18) H 08/26/22 15:05 Creatinine 1.21 mg/dL (0.70-1.30) 08/26/22 15:05 Est GFR (MDRD) Af Amer 76 mL/min (>60) 08/26/22 15:05 Est GFR (MDRD) Non-Af 63 mL/min (>60) 08/26/22 15:05 BUN/Creatinine Ratio 19.0 RATIO (10-20) 08/26/22 15:05 Glucose 198 mg/dL (74-106) H 08/26/22 15:05 Microbiology: Microbiology 08/26/22 15:26 Nasal Secretion SARS-CoV-2 & FLU Antigen (Rapid) - Final Goal Trough: 15-20 mcg/mL Pharmacy Plan for Drug Dosing: NEW START IV VANCOMYCIN Consulting Physician: Dr. Robbi Padilla Indication: Sepsis Goal Trough: 15-20 SrCr: 1.21 CrCl: 54.96 Comments: Pt received a 2000mg x1 dose in the ER on 08/26/22 at 1713 Vancomycin Dose: based on pts weight and renal function, recommend an initial dose of 1500mg q12h starting 08/27/22 at 0500. Trough before the 4th total dose Pending Level: 08/28/22 at 0430 Pharmacy Service will continue to monitor and adjust dosing as required. Follow-Up Labs: Trough Vancomycin - 08/28/22 at 0430
[2022-08-26] MEDS: Enoxaparin 40 MG/0.4 ML Syringe SC (22:23)
[2022-08-26] MEDS: levETIRAcetam Oral Solution 500 MG/5 ML 750 MG GT (22:25)
[2022-08-26] MEDS: Cilostazol 50 MG Tablet 100 MG GT (22:28)
[2022-08-26] MEDS: Atorvastatin Calcium 80 MG Tablet GT (22:29)
[2022-08-26] MEDS: Acetaminophen 650 MG/20 ML UDC 1000 MG GT (22:30)
[2022-08-26] MEDS: Gabapentin 300 MG Capsule GT (22:34)
[2022-08-26] MEDS: Ezetimibe 10 MG Tablet GT (22:54)
[2022-08-26] MEDS: Menthol/Lanolin/Calamine/Znox 113 GM Tube 1 APPLIC TOPICAL (22:54)
[2022-08-26 23:50] LABS: Bedside Glucose 152 mg/dL (74-106)
[2022-08-27] MEDS: Lactated Ringers 1,000 ML 100 ML IV (04:22)
[2022-08-27 04:28] VITALS: BP 135/62; PULSE 53; RESP 16; TEMP 36.7
[2022-08-27] MEDS: Acetaminophen 650 MG/20 ML UDC 1000 MG GT ×3 (06:02→22:14)
[2022-08-27] MEDS: Gabapentin 300 MG Capsule GT ×3 (06:03→22:21)
[2022-08-27 06:38] LABS: Absolute Lymphocyte Count 1.65 X10^3/uL (0.83-4.51); Basophil# 0.06 X10^3/uL; Basophil% 0.4 % (0-1); Eosinophil# 0.24 X10^3/uL; Eosinophils% 1.8 % (0-5); Hematocrit 35.6 % (40-54); Hemoglobin 11.6 g/dL (13.0-16.5); Lymphocyte # 1.65 X10^3/ul (0.83-4.51); Lymphocyte % 12.2 % (19-41); Mean Corp Hgb Conc 32.6 g/dL (32-36); Mean Corpuscular Volume 95.2 fL (80-94); Mean Platelet Vol. 9.5 fl (6.2-12.0); Monocyte# 1.56 X10^3/uL; Monocyte% 11.5 % (0-10); NRBC Flagged by Analyzer 0 % (0-5); Neutrophil # 9.95 X10^3/uL (2.7-7.7); Neutrophil % 73.5 % (47-70); POSITIVE DIFFERENTIAL YES; Platelet Count 207 K/mm3 (150-450); RBC Distribution Width CV 13.7 % (11.6-14.6); RBC Distribution Width SD 47.7 fl (35.1-43.9); Red Blood Count 3.74 M/mm3 (4.6-6.2); White Blood Count 13.5 K/mm3 (4.4-11.0)
[2022-08-27 06:39] LABS: Differential Indicated SCAN CRITERIA MET
[2022-08-27 06:58] LABS: Macrocytosis RARE
[2022-08-27 07:12] LABS: ALB/GLOB Ratio 0.7 RATIO (0.9-2.4); AST(SGOT) 10 U/L (15-37); Alanine Aminotransfer ALT/SGPT 16 U/L (16-61); Albumin, Serum 2.6 g/dL (3.2-5.0); Alkaline Phosphatase 87 U/L (45-117); Anion Gap 0 (5-15); BUN 16 mg/dL (7-18); BUN/Creat Ratio 17.5 RATIO (10-20); Chloride 114 mmol/L (98-107); Creatinine, Serum 0.91 mg/dL (0.70-1.30); EST Glomerular Filtration Rate 87 mL/min (>60); Est Glom Filt Rate - Afr Amer 106 mL/min (>60); Estimated Creatinine Clearance 73.08 ml/min; Globulin 3.6 g/dL (2.2-4.2); Glucose 177 mg/dL (74-106); Potassium 3.9 mmol/L (3.5-5.1); Protein, Total 6.2 g/dL (6.4-8.2); Sodium Level 140 mmol/L (136-145)
--- NOTE | 2022-08-27 07:25 | PN.HOSP_ITS ---
Reason for Visit Reason for Visit: Diagnoses Sepsis, unspecified organism (08/26/22) Encounter for attention to gastrostomy (08/26/22) Follow-up for possible the sepsis, fever and high suspicion of aspiration. History of a stroke in the past. Objective Data Objective Data Vital Signs: Vital Signs Temp Pulse Resp BP Pulse Ox O2 Del Method O2 Flow Rate 98.1 F 53 L 16 135/62 H 98 Nasal Cannula 2 08/27/22 04:28 08/27/22 04:28 08/27/22 04:28 08/27/22 04:28 08/26/22 21:23 08/27/22 04:28 08/27/22 04:28 Oxygen Flow Rate (L/min) 2 Oxygen Delivery Method Nasal Cannula Weight: 286 lb 12.8 oz Body Mass Index (BMI) 43.4 Intake & Output: Intake and Output for Last 24 Hours 08/25/22 08/26/22 08/27/22 23:59 23:59 23:59 Intake Total 3640 / 3640 1370 / 1370 Output Total 400 / 400 Balance 3640 / 3640 970 / 970 Lab / Micro Data Result Diagrams: 08/27/22 05:55 08/27/22 05:55 Labs: Laboratory Results - last 24 hr 08/26/22 15:05: WBC 16.6 H, RBC 4.56 L, Hgb 13.7, Hct 43.0, MCV 94.3 H, MCH 30.0, MCHC 31.9 L, RDW Std Deviation 47.3 H, RDW Coeff of Corinne 13.7, Plt Count 243, MPV 9.1, Immature Gran % (Auto) 0.700, Neut % (Auto) 81.3 H, Lymph % (Auto) 7.3 L, [place] % (Auto) 9.7, Eos % (Auto) 0.6, Baso % (Auto) 0.4, Absolute Neuts (a uto) 13.5 H, Absolute Lymphs (auto) 1.21, Nucleated RBC % 0, Differential Comment SCANNED, Diff Path Review September08/26/22 15:05: PT 13.6, INR 1.1, APTT 31.3 08/26/22 15:05: Sodium 138, Potassium 4.1, Chloride 106, Carbon Dioxide 30.0, Anion Gap 2 L, BUN 23 H, Creatinine 1.21, Estim Creat Clear Calc 54.96, Est GFR (MDRD) Af Amer 76, Est GFR (MDRD) Non-Af 63, BUN/Creatinine Ratio 19.0, Glucose 198 H, Calcium 9.3, Total Bilirubin 0.50, AST 11 L, ALT 20, Alkaline Phosphatase 109, Total Protein 8.0, Albumin 3.4, Globulin 4.6 H, Albumin/Globulin Ratio 0.7 L 08/26/22 15:05: Lactic Acid 2.6 H* 08/26/22 15:54: Urine Color Yellow, Urine Clarity Clear, Urine pH 5.0, Ur Specific [place] 1.020, Urine Protein 30 H, Urine Glucose (UA) 1000 H, Urine Ketones Negative, Urine Occult Blood 10 H, Urine Nitrite Negative, Urine Bilirubin Negative, Urine Urobilinogen Normal, Ur Leukocyte Esterase Negative, Urine RBC 0-5 SEEN, Urine WBC 0 SEEN, Ur Squamous Epith Cells 0 SEEN, Urine Bacteria 0 SEEN, Urine Mucus 0 SEEN 08/26/22 18:06: POC Glucose 189 H 08/26/22 19:34: Lactic Acid 1.2 08/26/22 22:19: POC Glucose 152 H 08/27/22 05:55: WBC 13.5 H, RBC 3.74 L, Hgb 11.6 L, Hct 35.6 L, MCV 95.2 H, MCH 31.0, MCHC 32.6, RDW Std Deviation 47.7 H, RDW Coeff of Corinne 13.7, Plt Count 207, MPV 9.5, Immature Gran % (Auto) 0.600, Neut % (Auto) 73.5 H, Lymph % (Auto) 12.2 L, [place] % (Auto) 11.5 H, Eos % (Auto) 1.8, Baso % (Auto) 0.4, Absolute Neuts (auto) 10.0 H, Absolute Lymphs (auto) 1.65, Nucleated RBC % 0, Diff Path Review May foll, Macrocytosis RARE 08/27/22 05:55: Sodium 140, Potassium 3.9, Chloride 114 H, Carbon Dioxide 26.0, Anion Gap 0 L, BUN 16, Creatinine 0.91, Estim Creat Clear Calc 73.08, Est GFR (MDRD) Af Amer 106, Est GFR (MDRD) Non-Af 87, BUN/Creatinine Ratio 17.5, Glucose 177 H, Calcium 8.0 L, Total Bilirubin 0.40, AST 10 L, ALT 16, Alkaline Phosphatase 87, Total Protein 6.2 L, Albumin 2.6 L, Globulin 3.6, Albumin/Globulin Ratio 0.7 L Micro: Microbiology 08/26/22 15:26 Nasal Secretion SARS-CoV-2 & FLU Antigen (Rapid) - Final Radiography Diagnostic Testing: Radiology Impression Chest X-Ray 08/26/22 16:25 IMPRESSION: Degenerative changes, as described above. No demonstrated acute cardiopulmonary process. Interval resolution of right basilar density seen on the prior study. Electronically Signed: Salvatore MosherDO at 16:43 EDT Reading Location ID and State: [facility] / [place] Tel [phone], Service support , Abdomen/Pelvis CT 08/26/22 17:36 IMPRESSION: 1. Gastrostomy tube without evidence of associated inflammatory process. 2. No evidence of acute intra-abdominal process or major interval change. Electronically Signed: Salvatore SerafinaDO chanel at 18:52 EDT Reading Location ID and State: [facility] Tel [phone], Service support , Rhythm Strip Rhythm Strip: Sinus Tach Rate: 111 Ectopy: None Physical Exam Narrative Seen and examined. Patient has residual aphasia from previous stroke and is difficult to understand. Speech is garbled jumbled words and mostly nods his head in yes or no.History of left MCA stroke and dysphagia in January 2017. As per nursing staff he was on full oral diet in care home with medications from PEG tube. Physical exam General: Awake, alert, difficult to ascertain orientation because of aphasia. Does not seem to be confused. Morbid obesity BMI 43.5 kg/m?. HEENT: Atraumatic, PERRLA, EOMI, Normocephalic Oral: Oral mucosa moist. No Gingival or Mucosal Lesions/ Ulcerations Neck: Supple, No JVD, Negative Carotid Bruits Lungs: Air entry diminished in bilateral lung bases. No crepitation/rhonchi Cardiovascular: Regular rate, Regular Rhythm, Normal S1, Normal S2, No murmurs Abdomen: Bowel Sounds Present, Soft, Non Tender, Non-Distended : No renal angle tenderness. No suprapubic tenderness. Extremities: No edema, Capillary Refill Less than 3 Seconds Skin: No rashes, No breakdown Musculoskeletal: No Tenderness to Palpation of Joints or Extremities. Right- sided hemiparesis. Right lower extremity seems bigger than left. Neurological: Residual right-sided hemiparesis from previous stroke, global aphasia predominantly motor. Psych/Mental Status: Flat affect Assessment & Plan Assessment/Plan (1) Sepsis: PLAN: Plan This is a 72-year-old gentleman brought by EMS for hypoxia/low pulse ox 83% on room air and tachycardia, fever chills , 102 Fahrenheit. As per EMS he also had a stain of dried vomit on shirt. Home O2 requirement is as needed Assessment and plan 1. Fever with unclear source, possible aspiration with low suspicion of sepsis: Patient has mild leukocytosis and leukocytosis. The patient presented with suspicion of sepsis due to Unclear source probably aspiration pneumonia with clinical indicators of fever, tachycardia, hypoxia, tachypnea RR 22?26/min with acute sepsis-related organ dysfunction as evidenced by lactic acidosis. Chest x-ray individually reviewed shows no acute cardiopulmonary process. Interval resolution of right basilar density. CT abdomen also does not show acute intra- abdominal abnormality Patient initially started on IV vancomycin and Zosyn. Antibiotic narrowed down to Unasyn. Follow-up on urine and blood cultures. Speech therapist has to see the patient. 2. Global aphasia, right-sided hemiplegia and dysphagia from prior stroke. Resume PEG tube feeding. PT and OT. IV fluid D5 half NS 30 mill per hour for nutritional purposes until cleared by speech therapist. 3. Type 2 diabetes with hyperglycemia. Resume home regimen of basal and mealtime insulin. Accu-Cheks every 6 hourly incorrigible of sliding scale. 4. Chronic hypoxic respiratory failure. Continue supplemental oxygen at 2 L/min. Patient required oxygen in care home as needed. Microbiology Past 72 Hours 08/26/22 15:26 Nasal Secretion SARS-CoV-2 & FLU Antigen (Rapid) - Final Laboratory Results 08/26/22 15:05: WBC 16.6 H, RBC 4.56 L, Hgb 13.7, Hct 43.0, MCV 94.3 H, MCH 30.0, MCHC 31.9 L, RDW Std Deviation 47.3 H, RDW Coeff of Corinne 13.7, Plt Count 243, MPV 9.1, Immature Gran % (Auto) 0.700, Neut % (Auto) 81.3 H, Lymph % (Auto) 7.3 L, [place] % (Auto) 9.7, Eos % (Auto) 0.6, Baso % (Auto) 0.4, Absolute Neuts (auto) 13.5 H, Absolute Lymphs (auto) 1.21, Nucleated RBC % 0, Differential Comment SCANNED, Diff Path Review September foll 08/26/22 15:05: PT 13.6, INR 1.1, APTT 31.3 08/26/22 15:05: Sodium 138, Potassium 4.1, Chloride 106, Carbon Dioxide 30.0, Anion Gap 2 L, BUN 23 H, Creatinine 1.21, Estim Creat Clear Calc 54.96, Est GFR (MDRD) Af Amer 76, Est GFR (MDRD) Non-Af 63, BUN/Creatinine Ratio 19.0, Glucose 198 H, Calcium 9.3, Total Bilirubin 0.50, AST 11 L, ALT 20, Alkaline Phosphatase 109, Total Protein 8.0, Albumin 3.4, Globulin 4.6 H, Albumin/Globulin Ratio 0.7 L 08/26/22 15:05: Lactic Acid 2.6 H* 08/26/22 15:54: Urine Color Yellow, Urine Clarity Clear, Urine pH 5.0, Ur Specific [place] 1.020, Urine Protein 30 H, Urine Glucose (UA) 1000 H, Urine Ketones Negative, Urine Occult Blood 10 H, Urine Nitrite Negative, Urine Bilirubin Negative, Urine Urobilinogen Normal, Ur Leukocyte Esterase Negative, Urine RBC 0-5 SEEN, Urine WBC 0 SEEN, Ur Squamous Epith Cells 0 SEEN, Urine Bacteria 0 SEEN, Urine Mucus 0 SEEN 08/26/22 18:06: POC Glucose 189 H 08/26/22 19:34: Lactic Acid 1.2 08/26/22 22:19: POC Glucose 152 H 08/27/22 05:55: WBC 13.5 H, RBC 3.74 L, Hgb 11.6 L, Hct 35.6 L, MCV 95.2 H, MCH 31.0, MCHC 32.6, RDW Std Deviation 47.7 H, RDW Coeff of Corinne 13.7, Plt Count 207, MPV 9.5, Immature Gran % (Auto) 0.600, Neut % (Auto) 73.5 H, Lymph % (Auto) 12.2 L, [place] % (Auto) 11.5 H, Eos % (Auto) 1.8, Baso % (Auto) 0.4, Absolute Neuts (auto) 10.0 H, Absolute Lymphs (auto) 1.65, Nucleated RBC % 0, Diff Path Review May foll, Macrocytosis RARE 08/27/22 05:55: Sodium 140, Potassium 3.9, Chloride 114 H, Carbon Dioxide 26.0, Anion Gap 0 L, BUN 16, Creatinine 0.91, Estim Creat Clear Calc 73.08, Est GFR (MDRD) Af Amer 106, Est GFR (MDRD) Non-Af 87, BUN/Creatinine Ratio 17.5, Glucose 177 H, Calcium 8.0 L, Total Bilirubin 0.40, AST 10 L, ALT 16, Alkaline Phosphatase 87, Total Protein 6.2 L, Albumin 2.6 L, Globulin 3.6, Albumin/Globulin Ratio 0.7 L Clinical Impression(s) from Imaging Studies Chest X-Ray 08/26/22 16:25 IMPRESSION: Degenerative changes, as described above. No demonstrated acute cardiopulmonary process. Interval resolution of right basilar density seen on the prior study. Electronically Signed: Salvatore Mosher DO at 16:43 EDT Reading Location ID and State: [address] [place] [address] Tel [phone], Service support , Abdomen/Pelvis CT 08/26/22 17:36 IMPRESSION: 1. Gastrostomy tube without evidence of associated inflammatory process. 2. No evidence of acute intra-abdominal process or major interval change. Charges/Coding Visit Charges Inpatient E&M: 45259 Subs Hosp L2
[2022-08-27 07:35] VITALS: BP 140/61; PULSE 48; RESP 18; TEMP 37
[2022-08-27 07:50] VITALS: O2SAT 98
[2022-08-27] MEDS: Citalopram 10 MG Tablet GT (09:41)
[2022-08-27] MEDS: Gemfibrozil 600 MG Tablet GT ×2 (09:41→22:14)
[2022-08-27] MEDS: Cilostazol 50 MG Tablet 100 MG GT ×2 (09:41→22:13)
[2022-08-27] MEDS: Clopidogrel Bisulfate 75 MG Tablet GT (09:41)
[2022-08-27] MEDS: Losartan Potassium 50 MG Tablet GT (09:42)
[2022-08-27] MEDS: Enoxaparin 40 MG/0.4 ML Syringe SC ×2 (09:42→22:14)
[2022-08-27] MEDS: Menthol/Lanolin/Calamine/Znox 113 GM Tube 1 APPLIC TOPICAL ×2 (09:43→22:42)
[2022-08-27] MEDS: levETIRAcetam Oral Solution 500 MG/5 ML 750 MG GT ×2 (09:44→22:12)
--- NOTE | 2022-08-27 11:26 | VDLE_ITS ---
Reason For Study: Swelling RIGHT LEFT GSV is normal. GSV is normal. CFV is compressible, spontaneous, phasic, CFV is compressible, spontaneous, phasic, competent and demonstrates normal competent, and demonstrates normal augmentation. augmentation. FV is compressible, spontaneous, phasic, FV is compressible, spontaneous, phasic, competent and demonstrates normal competent and demonstrates normal augmentation. augmentation. POP V is compressible, spontaneous, phasic, POP V is compressible, spontaneous, phasic, competent and demonstrates normal competent and demonstrates normal augmentation. augmentation. T/P Trunk is compressible. T/P Trunk is compressible. PTV is compressible. PTV is compressible. RT PerV is compressible. LT PerV is compressible. Procedure This is a venous duplex using B-mode, color flow and spectral Doppler. Exam performed portable in patient room. A preliminary report was called and/or faxed to [facility]. VL/Venous Duplex US - Tyler Extrem Interpretation Summary No evidence for acute deep venous thrombosis bilateral lower extremities with p atent and compressible bilateral great saphenous veins. Ordering Physician: Yovani Abbott Referring Physician: Marcin Joseph Performed By: Brooklyn Mayer RVT
--- NOTE | 2022-08-27 11:26 | CASEMGMT ---
Social Work? JUDY in to pt room to discuss discharge plan. JUDY introduced self and explained role at the hospital.? JUDY offered a list of SNF providers including quality and resource use data consistent with the patient?s preferred geographic region, medical needs, and insurance network from the [employer] Guide. Pt declined list. Pt difficult to understand, mumbled answers but did nod head in affirmative when asked if wants to return to [place], where pt was prior to admission at [facility], is preference.? JUDY updated discharge assistant finance directorJudith. Judith to send updates and inquired what pt will need to return.?? PLAN: [place], pending approval to return? CAREN Howe? ?
--- NOTE | 2022-08-27 11:29 | CASEMGMT ---
Discharge Planning Patients wishes to return to [facility]. Referral sent. Judith Royal
[2022-08-27 11:51] LABS: Bedside Glucose 202 mg/dL (74-106)
[2022-08-27 13:00] VITALS: PULSE 66; RESP 18
[2022-08-27 14:15] VITALS: BP 140/71; PULSE 63; RESP 18; TEMP 36.7; O2SAT 98
[2022-08-27] MEDS: levETIRAcetam Oral Solution 500 MG/5 ML GT (16:08)
[2022-08-27 16:35] LABS: Bedside Glucose 188 mg/dL (74-106)
[2022-08-27 21:00] VITALS: BP 147/73; PULSE 73; RESP 16; TEMP 36.7; O2SAT 98
[2022-08-27] MEDS: Ezetimibe 10 MG Tablet GT (22:13)
[2022-08-27] MEDS: Atorvastatin Calcium 80 MG Tablet GT (22:13)
[2022-08-28] MEDS: KCL 20MEQ in D5.45NS 20 MEQ/1,000 ML IV.SOLN. 30 MEQ IV (01:06)
[2022-08-28 01:10] LABS: Bedside Glucose 144 mg/dL (74-106)
[2022-08-28 03:23] VITALS: BP 131/63; PULSE 95; RESP 16; TEMP 37.1; O2SAT 96
[2022-08-28] MEDS: Acetaminophen 650 MG/20 ML UDC 1000 MG GT ×2 (05:21→13:54)
[2022-08-28] MEDS: Gabapentin 300 MG Capsule GT ×2 (05:21→13:56)
[2022-08-28] MEDS: Insulin Lispro 100 UNIT/ML INSULN.PEN SC ×3 (06:50→16:30)
[2022-08-28 07:10] LABS: Bedside Glucose 184 mg/dL (74-106)
[2022-08-28 08:20] VITALS: O2SAT 95
--- NOTE | 2022-08-28 08:44 | CASEMGMT ---
Social Work SW having difficulty reaching someone at [facility] to confirm pt can return. JUDY called [facility] this AM to discuss. 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 JUDY explained not sure if pt is medically ready at this time but likely will be soon. [facility] stated pt can return at anytime, just to informed [facility] when pt is ready and pt can discharge back to the facility. JUDY updated MD Scar that pt can return to [facility] when medically ready. PLAN: [facility], when Medically ready. CAREN Howe
[2022-08-28 08:45] VITALS: BP 143/71; PULSE 82; RESP 16; TEMP 36.8; O2SAT 92
[2022-08-28 08:50] VITALS: RESP 16; O2SAT 91
[2022-08-28 09:55] LABS: Pathologist Review Reviewed
[2022-08-28 09:58] LABS: Pathologist Review Reviewed
[2022-08-28] MEDS: Clopidogrel Bisulfate 75 MG Tablet GT (10:49)
[2022-08-28] MEDS: Gemfibrozil 600 MG Tablet GT (10:49)
[2022-08-28] MEDS: Losartan Potassium 50 MG Tablet GT (10:49)
[2022-08-28] MEDS: Cilostazol 50 MG Tablet 100 MG GT (10:49)
[2022-08-28] MEDS: Citalopram 10 MG Tablet GT (10:49)
[2022-08-28] MEDS: Enoxaparin 40 MG/0.4 ML Syringe SC (10:50)
[2022-08-28] MEDS: Menthol/Lanolin/Calamine/Znox 113 GM Tube 1 APPLIC TOPICAL (10:50)
--- NOTE | 2022-08-28 11:01 | PCM.TXEXTCAR ---
Diet Diet Order/Speech Therapy: 08/28/22 12:28 Diet: Carbohydrate Controlled Food consistency:: Soft & Bite Sized Liquid Consistency:: Regular/Thin Dietary Modifications:: Cardiac / Heart Healthy Is pt able to select menu?: No Diet Comments: Direct Supervision, small bites/sips, slow rate Tube Feed: Use medication through the PEG tube Routine Orders/Code Status Suppository Type: Dulcolax 10mg Suppository Frequency: Daily PRN Code Status: Full Code (Unverified) Therapies Weight Bearing: Weight bearing as tolerated Extremity Affected:: Bilateral Lower Physical Therapy: Eval and Treat Occupational Therapy: Eval and Treat Speech Therapy: Eval and Treat Problem/Diagnosis (1) Sepsis: Status: Acute Code(s): A41.9 - Sepsis, unspecified organism Plan This is a 72-year-old gentleman brought by EMS for hypoxia/low pulse ox 83% on room air and tachycardia, fever chills , 102 Fahrenheit. As per EMS he also had a stain of dried vomit on shirt. Home O2 requirement is as needed Assessment and plan 1. Fever with unclear source, possible aspiration with low suspicion of sepsis: Patient has mild leukocytosis and leukocytosis. The patient presented with suspicion of sepsis due to Unclear source probably aspiration pneumonia with clinical indicators of fever, tachycardia, hypoxia, tachypnea RR 22?26/min with acute sepsis-related organ dysfunction as evidenced by lactic acidosis. Chest x-ray individually reviewed shows no acute cardiopulmonary process. Interval resolution of right basilar density. CT abdomen also does not show acute intra-abdominal abnormality Patient initially started on IV vancomycin and Zosyn. Antibiotic narrowed down to Unasyn. Follow-up on urine and blood cultures. Speech therapist has to see the patient. 08/28: Urine culture negative. Blood cultures x2 are pending. Low suspicion for sepsis. Lactic acidosis but not hypotensive. Continue IV antibiotics. MBS result pending. 2. Global aphasia, right-sided hemiplegia and dysphagia from prior stroke. Resume PEG tube feeding. PT and OT. IV fluid D5 half NS 30 mill per hour for nutritional purposes until cleared by speech therapist. 3. Type 2 diabetes with hyperglycemia. Resume home regimen of basal and mealtime insulin. Accu-Cheks every 6 hourly incorrigible of sliding scale. 4. Chronic hypoxic respiratory failure. Continue supplemental oxygen at 2 L/min. Patient required oxygen in [facility] as needed. Clinical Impression(s) from Imaging Studies Chest X-Ray 08/26/22 16:25 IMPRESSION: Degenerative changes, as described above. No demonstrated acute cardiopulmonary process. Interval resolution of right basilar density seen on the prior study. Electronically Signed: Salvatore Mosher DO at 16:43 EDT Reading Location ID and State: [address] [place] [address] Tel [phone], Service support , Abdomen/Pelvis CT 08/26/22 17:36 IMPRESSION: 1. Gastrostomy tube without evidence of associated inflammatory process. 2. No evidence of acute intra-abdominal process or major interval change. Allergies/Procedures Done in Hospital Allergies No Known Allergies Allergy (Verified 10/28/21 09:43) Type of Care/Length of Stay Estimated LOS: Convalescent Care Less Than 30 days Type of Care Needed: Skilled Rehab Potential: Fair Prognosis: Fair Additional Orders/Day of Discharge Day of Discharge: 08/28/22 Dietary and Speech Recommendations Dietitian Recommendations/Changes: 1) CHO controlled, cardiac diet - texture/consistency per SALES AND SERVICE CHANGE LEADER. 2) If unable to resume PO diet, recommend enteral nutrition via PEG- Jevity 1.5 260mL bolus 5x/day w/ 100mL H2O flush before and after each bolus to provide 1950 calories, 83 g protein, and 1988mL total fluid/day. Discharge Plan Admission Admit Date/Time: 08/26/22 17:38 Primary Reason for Your Visit: Suspicion of aspiration. Attending Provider: Yovani Abbott Primary Care Provider: Marcin Joseph Consulting Providers: Jed Padilla Discharge Orders/Prescriptions Prescriptions: New insulin lispro [Humalog KwikPen Insulin] 100 unit/mL Insulin Pen See Protocol subcut ACHS Qty: 0 0RF Protocol: 3. Sliding Scale Insulin Med Dosing Condition: 150-189 mg/dl = 1 unit Condition: 190-229 mg/dl = 2 units Condition: 230-269 mg/dl = 3 units Condition: 270-309 mg/dl = 4 units Condition: 310-349 mg/dl = 5 units Condition: 350-399 mg/dl = 6 units Condition: 400-449 mg/dl = 7 units Condition: Greater than 449 call physician Protocol Text: - Use for Total Daily Dose of Insulin 37-55 units - Obsese, infected, or steroid patients MEDIUM DOSING ALGORITHIM menthol-zinc oxide [Calmoseptine] 0.44-20.6 % Ointment 1 applic topical BID Qty: 0 0RF Protocol: *Topical Application Instructions APPLICATION INSTRUCTIONS: affected area amoxicillin-pot clavulanate 875-125 mg tablet 1 tab PO BID 5 Days Qty: 10 0RF Continued gemfibrozil 600 MG tablet 600 mg G-tube BIDAC clopidogrel 75 MG tablet 75 mg G-tube DAILY Label Comments: Blood thinner atorvastatin 80 MG tablet 80 mg G-tube QHS Label Comments: Cholesterol ezetimibe 10 MG tablet 10 mg GT QHS levetiracetam 750 MG tablet 750 mg GT BID insulin lispro 100 UNIT/ML cartridge 15 unit SC TIDCM insulin glargine [Lantus Solostar U-100 Insulin] 100 UNITS/ML insulin pen 25 units SC QHS insulin lispro 100 UNIT/ML cartridge See Protocol SC TIDCM Protocol: 6. Sliding Scale Insulin Custom Condition: mg/dl range Dose/Route: Number of Units Condition: 151-200 Dose/Route: 2 Condition: 201-250 Dose/Route: 4 Condition: 251-300 Dose/Route: 6 Condition: 301-350 Dose/Route: 8 Condition: 351-400 Dose/Route: 10 Condition: 401-600 Dose/Route: 12 Instruction: CALL Protocol Text: Custom Sliding Scale cilostazol 100 MG tablet 100 mg GT BID levetiracetam 500 MG tablet 500 mg GT DAILY@1600 acetaminophen 500 mg Tablet 1,000 mg feeding tube Q8H Qty: 0 losartan 50 mg tablet 50 mg feeding tube DAILY citalopram 10 mg tablet 10 mg feeding tube DAILY aspirin 81 mg Tablet,Delayed Release (Dr/Ec) 81 mg feeding tube DAILY alum-mag hydroxide-simeth [Tari-Lanta] 200-200-20 mg/5 mL Suspension 10 ml feeding tube TID PRN (Reason: BLOATING) acetaminophen 650 mg/20.3 mL Suspension 650 mg PO Q4H PRN (Reason: PAIN/FEVER) gabapentin 300 mg capsule 300 mg feeding tube TID Discontinued sulfamethoxazole-trimethoprim [Bactrim DS] 800-160 mg Tablet 1 tab feeding tube Q12H Referrals / Follow Up: Marcin Joseph MD [Primary Care Provider] -
--- NOTE | 2022-08-28 11:21 | PN.HOSP_ITS ---
Reason for Visit Reason for Visit: Diagnoses Sepsis, unspecified organism (08/26/22) Encounter for attention to gastrostomy (08/26/22) Follow-up for possible sepsis. Objective Data Objective Data Vital Signs: Vital Signs Temp Pulse Resp BP Pulse Ox O2 Del Method O2 Flow Rate 98.2 F 82 16 143/71 H 91 Nasal Cannula 2 08/28/22 08:45 08/28/22 08:45 08/28/22 08:50 08/28/22 08:45 08/28/22 08:50 08/28/22 08:50 08/28/22 08:50 Oxygen Flow Rate (L/min) 2 Oxygen Delivery Method Nasal Cannula Weight: 286 lb 12.789 oz Body Mass Index (BMI) 43.4 Intake & Output: Intake and Output for Last 24 Hours 08/26/22 08/27/22 08/28/22 23:59 23:59 23:59 Intake Total 3640 / 3640 3410 / 3410 480.25 / 480.25 Output Total 400 / 400 850 / 850 Balance 3640 / 3640 3010 / 3010 -369.75 / -369.75 Lab / Micro Data Result Diagrams: 08/27/22 05:55 08/27/22 05:55 Labs: Laboratory Results - last 24 hr 08/26/22 15:05: Diff Path Review Reviewed 08/27/22 05:55: Diff Path Review Reviewed 08/27/22 11:28: POC Glucose 202 H 08/27/22 16:13: POC Glucose 188 H 08/27/22 22:32: POC Glucose 144 H 08/28/22 06:46: POC Glucose 184 H Micro: Microbiology 08/26/22 15:54 Urine Catheter - Catheter Urine Culture - Final Culture exhibits no growth. 08/26/22 15:26 Nasal Secretion SARS-CoV-2 & FLU Antigen (Rapid) - Final Radiography Diagnostic Testing: Radiology Impression Venous Doppler Study 08/27/22 11:26 Interpretation Summary No evidence for acute deep venous thrombosis bilateral lower extremities with patent and compressible bilateral great saphenous veins. Ordering Physician: Yovani Abbott Referring Physician: Marcin Joseph Performed By: Brooklyn Mayer RVT Rhythm Strip Rhythm Strip: Sinus Tach Rate: 111 Ectopy: None Physical Exam Narrative Seen and examined. No fever. Vitals stable. Patient on 2 L of oxygen pulse ox 91%. Patient had modified barium swallow today. Patient has residual aphasia from previous stroke and is difficult to understand. Speech is garbled jumbled words and mostly nods his head in yes or no.History of left MCA stroke and dysphagia in January 2017. As per nursing staff he was on full oral diet in residential with medications from PEG tube. Physical exam General: Awake, alert, difficult to ascertain orientation because of aphasia. Does not seem to be confused. Morbid obesity BMI 43.5 kg/m?. HEENT: Atraumatic, PERRLA, EOMI, Normocephalic Oral: Oral mucosa moist. No Gingival or Mucosal Lesions/ Ulcerations Neck: Supple, No JVD, Negative Carotid Bruits Lungs: Air entry diminished in bilateral lung bases. No crepitation/rhonchi Cardiovascular: Regular rate, Regular Rhythm, Normal S1, Normal S2, No murmurs Abdomen: Bowel Sounds Present, Soft, Non Tender, Non-Distended : No renal angle tenderness. No suprapubic tenderness. Extremities: 1+ pitting edema, Capillary Refill Less than 3 Seconds Skin: No rashes, No breakdown Musculoskeletal: No Tenderness to Palpation of Joints or Extremities. Right- sided hemiparesis. Right lower extremity seems bigger than left no DVT. Neurological: Residual right-sided hemiparesis from previous stroke, global aphasia predominantly motor. Psych/Mental Status: Flat affect Assessment & Plan Assessment/Plan (1) Sepsis: PLAN: Plan This is a 72-year-old gentleman brought by EMS for hypoxia/low pulse ox 83% on room air and tachycardia, fever chills , 102 Fahrenheit. As per EMS he also had a stain of dried vomit on shirt. Home O2 requirement is as needed Assessment and plan 1. Fever with unclear source, possible aspiration with low suspicion of sepsis: Patient has mild leukocytosis and leukocytosis. The patient presented with suspicion of sepsis due to Unclear source probably aspiration pneumonia with clinical indicators of fever, tachycardia, hypoxia, tachypnea RR 22?26/min with acute sepsis-related organ dysfunction as evidenced by lactic acidosis. Chest x-ray individually reviewed shows no acute cardiopulmonary process. Interval resolution of right basilar density. CT abdomen also does not show acute intra- abdominal abnormality Patient initially started on IV vancomycin and Zosyn. Antibiotic narrowed down to Unasyn. Follow-up on urine and blood cultures. Speech therapist has to see the patient. 08/28: Urine culture negative. Blood cultures x2 are pending. Low suspicion for sepsis. Lactic acidosis but not hypotensive. Continue IV antibiotics. MBS result pending. 2. Global aphasia, right-sided hemiplegia and dysphagia from prior stroke. Resume PEG tube feeding. PT and OT. IV fluid D5 half NS 30 mill per hour for nutritional purposes until cleared by speech therapist. 3. Type 2 diabetes with hyperglycemia. Resume home regimen of basal and mealtime insulin. Accu-Cheks every 6 hourly incorrigible of sliding scale. 4. Chronic hypoxic respiratory failure. Continue supplemental oxygen at 2 L/min. Patient required oxygen in residential as needed. Clinical Impression(s) from Imaging Studies Chest X-Ray 08/26/22 16:25 IMPRESSION: Degenerative changes, as described above. No demonstrated acute cardiopulmonary process. Interval resolution of right basilar density seen on the prior study. Electronically Signed: Salvatore Mosher DO at 16:43 EDT Reading Location ID and State: [address] [place] [address] Tel [phone], Service support , Abdomen/Pelvis CT 08/26/22 17:36 IMPRESSION: 1. Gastrostomy tube without evidence of associated inflammatory process. 2. No evidence of acute intra-abdominal process or major interval change. Charges/Coding Visit Charges Inpatient E&M: 60330 Subs Hosp L2
[2022-08-28 11:46] LABS: Bedside Glucose 192 mg/dL (74-106)
[2022-08-28] MEDS: levETIRAcetam Oral Solution 500 MG/5 ML 750 MG GT (11:50)
--- NOTE | 2022-08-28 12:06 | CASEMGMT ---
Social Work SW spoke to pt Legal Guardian, Khanh regarding the discharge plan. Khanh confirmed pt lives at [facility] and returning there is Khanh's wish for discharge plan. Khanh asked for medical updates. JUDY explained discussing this is outside of SW scope of practice and that JUDY would have pt nurse come discuss with Khanh. JUDY notified Tori, pt nurse, that Khanh would like to talk regarding pt medical status. PLAN: Return to [facility], when medically ready CAREN Howe
--- NOTE | 2022-08-28 12:27 | ST.MBS ---
Modified Barium Swallow - Patient Information Study Date: 08/28/22 Study Time: 10:00 Direct Billable Minutes: 83 Total Minutes procedure & reportin Diagnosis: Dysphagia (R13.10), Hypoxia (R09.02) Referring Physician: Yovani Abbott Reason for Referral: Objectively assess swallow function, assess risk for aspiration, and determine recommendations for least restrictive diet textures and compensatory strategies to improve safety of swallow. Medical History: The patient is a 72-year-old male long-term resident with a history of global aphasia from a previous stroke, anxiety, apraxia, diabetes, dysphagia, encounter for attention to gastrostomy, heart disease hemiplegia, hyperlipemia, hypertension, PEG (percutaneous endoscopic gastrostomy) adjustment/replacement/removal, peripheral vascular disease, sleep apnea, stroke/cerebrovascular accident, and Chronic hypoxic respiratory failure. See PMH in the H&P and most recent hospitalist progress note for full report. Patient not able to provide any history. ED physician obtained history from long-term. Presented to the hospital after being found to be having a fever of 101 ?F. Here patient found to have a temperature of 102 ?F. Was also noted to be hypoxic at the long-term. Patient was 83% on room air. It appears patient is supposed to be on supplemental oxygen as needed. Patient was placed on 2 L/min at [facility], and oxygen saturation was 96%. Patient referred for speech evaluation due to history of stroke and PEG tube. Patient completed BSE on 08/27/22 and was recommended to remain NPO until completion of MBSS due to overt s/s of aspiration and being recommended for a MBSS during previous admission on 04/29/22. See BSE on 08/27/22 for full report. Current Diet Ordered: NPO w/ sips and chips Dentition: Edentulous Mental Status: Impaired - global aphasia s/p CVA Respiratory Status: Oxygenating on Room Air - Penetration-Aspiration Scale Penetration-Aspiration Scale: OBJECTIVE ASSESSMENT OF SWALLOW FUNCTION (QUANTITATIVE ? PER TRIAL): PENETRATION / ASPIRATION SCALE (GODINEZ): 1 = does not enter airway 2 = enters airway/above vocal folds/ejected 3 = enters airway/above vocal folds/not ejected 4 = enters airway/contacts vocal folds/ejected 5 = enters airway/contacts vocal folds/not ejected 6 = enters airway/below vocal folds/ejected 7 = enters airway/below vocal folds/not ejected despite effort 8 = enters airway/below vocal folds/no effort VIDEOFLOROSCOPIC SCALE SCORE (GODINEZ): Grade I = aspiration of material that has penetrated into the laryngeal vestibule, intact cough reflex Grade II = aspiration < 10 % of the bolus, intact cough reflex Grade III = aspiration of < 10 % of the bolus, reduced cough reflex or aspiration of > 10 % of the bolus, intact cough reflex Grade IV = aspiration of > 10 % of the bolus, reduced cough reflex - Penetration-Aspiration Scale Score Thin Liquid via teaspoon Result: 1= does not enter airway Thin Liquid via teaspoon Trial 2 Result: 1= does not enter airway Thin Liquid via sequential sips from cup Result: 1= does not enter airway [place]indall Thick Liquid via large single sip from cup Result: 1= does not enter airway Pudding via teaspoon Result: 1= does not enter airway 1/4 Cookie Result: 1= does not enter airway Thin Liquid via large single sip from straw Result: 1= does not enter airway - Oral Phase Labial Seal: Escape progressing to mid-chin Tongue Control During Bolus Hold: Posterior escape of greater than half of bolus Bolus Preparation/Mastication: Disorganized chewing/mashing with solid pieces of bolus unchewed Bolus Transport/Lingual Motion: Delayed initiation of tongue motion Oral Residue: Majority of bolus remaining - Pharyngeal Phase Initiation of Pharyngeal Swallow: Bolus head in pyriforms Soft Palate Elevation: Trace column of contrast/air between soft palate and pharyngeal wall Laryngeal Elevation: Comp. Superior move thyroid cart w/comp. apprx arytenoid cart-epig pet Anterior Hyoid Excursion: Partial anterior movement Epiglottic Movement: Complete inversion Laryngeal Vestibule Closure at Height of Swallow: Complete; no air/contrast in laryngeal vestibule Pharyngeal Stripping Wave: Present - complete Pharyngoesophageal Segment Opening: Complete distension and complete duration; no obstruction of flow Tongue Base Retraction: Trace column of contrast between tongue base & post. pharyngeal wall Pharyngeal Residue: Trace residue within or on pharyngeal structures - Diagnosis/Impression Diagnosis: Mild oropharyngeal phase dysphagia (R13.12) Impression: C-arm required for optimal imaging due to patient's body habitus. The oral phase is primarily marked by...? -Decreased bolus control with >1/2 of the bolus spilling posteriorly to the pyriforms prior to swallow onset observed with large sips across all consistencies.? -Patient is edentulous, with solid pieces of cookie left un-chewed, and a majority of bolus remaining after swallow, especially noted with large sips. Majority of liquids/solids clearing after independent use of multiple swallows.? ? The pharyngeal phase is primarily marked by...? -Mildly decreased anterior hyoid movement, and trace tongue base retraction, with resulting trace pharyngeal residue. ? -Mildly delayed swallow onset, observed with large sips across all consistencies. ? ? The esophageal phase is primarily marked by...? -Unable to assess esophageal phase past the UES due to patient requiring C-Arm for study. - Recommendations Diet: Thin Liquids - Soft and bite size textures (IDDSI Level 6) Compensatory Strategies: Small Bites, Small Sips - One at a time, Slow Rate, Sitting upright, Remain sitting upright for 30 minutes after PO intake Supervision: 1:1 Close Supervision Recommend Repeat Modified Barium Swallow: No Need for Skilled Speech Therapy Services: Yes Comment: Will recommend the patient for dysphagia therapy to train patient in recommended strategies. Will recommend consideration for diet advancement of textures with dentures in place, and if deemed clinically appropriate by speech therapist. The patient would benefit from thorough education regarding diet recommendations and recommended compensatory strategies. Education Completed: 1. Described result of evaluation., 7. Pt requires further education on strategies & risks. - Status Active ST Patient: Active - Contact Information [facility] Speech Therapy:: Ely Calvin M.A. [facility] [place] Speech-Language Pathologist [facility] [address] [place] [address] [email or web address] [phone] 08/28/22 12:36
[2022-08-28 13:06] VITALS: BP 152/71; PULSE 81; RESP 16; TEMP 36.9; O2SAT 93
[2022-08-28] MEDS: levETIRAcetam Oral Solution 500 MG/5 ML GT (15:52)
--- NOTE | 2022-08-28 16:09 | DS.PCM_ITS ---
Providers Date of Admission: 08/26/22 Date of Discharge: 08/28/22 Primary Care Physician: Dr. Marcin Joseph MD Reason For Visit: SEPSIS Diagnosis Discharge Diagnosis (1) Sepsis: Status: Acute Code(s): A41.9 - Sepsis, unspecified organism Plan This is a 72-year-old gentleman brought by EMS for hypoxia/low pulse ox 83% on room air and tachycardia, fever chills , 102 Fahrenheit. As per EMS he also had a stain of dried vomit on shirt. Home O2 requirement is as needed Assessment and plan 1. Fever with unclear source, possible aspiration with confirmed sepsis: Patient has mild leukocytosis and leukocytosis. The patient presented with suspicion of sepsis due to Unclear source probably aspiration with clinical indicators of fever, tachycardia, hypoxia, tachypnea RR 22?26/min with acute sepsis-related organ dysfunction as evidenced by lactic acidosis. Chest x-ray individually reviewed shows no acute cardiopulmonary process. Interval resolution of right basilar density. CT abdomen also does not show acute intra- abdominal abnormality Patient initially started on IV vancomycin and Zosyn. Antibiotic narrowed down to Unasyn. Follow-up on urine and blood cultures. Speech therapist has to see the patient. 08/28: Urine culture negative. Blood cultures x2 are pending but seems negative for 48 hours. Lactic acidosis but not hypotensive. Continue IV antibiotics. MBS shows mild oropharyngeal dysphagia. Patient on diet as recommended by speech therapist, thin liquid soft and bite sized food with compensatory strategies on close one-to-one supervision. PEG tube for medication admini stration. I think patient had sepsis during time of admission. Patient is discharged on 5 more days of Augmentin to complete a total of 7 days of antibiotic. 2. Global aphasia, right-sided hemiplegia and dysphagia from prior stroke. Resume PEG tube feeding. PT and OT. IV fluid D5 half NS 30 mill per hour for nutritional purposes until cleared by speech therapist. IV fluid discontinued. Patient was also on Bactrim DS from half-way probably suspicion of UTI but urine culture negative therefore discontinued. 3. Type 2 diabetes with hyperglycemia. Resume home regimen of basal and lavinia ltime insulin. 08/28 Accu-Chek before meals and at bedtime and cover with Humalog sliding scale. Glucoses controlled. 4. Chronic hypoxic respiratory failure. Continue supplemental oxygen at 2 L/min. Patient required oxygen in half-way as needed. Discharge medication reconciliation done. Discharge follow-up instructions completed. Discharge process discussed with the patient and all questions were answered to patient's satisfaction. Total time spent, exact 35 minutes on discharge meds reconciliation, examination, coordination of care with nurses and ancillary staff, review of imaging and blood test and discussion with the patient on follow-up instructions. Microbiology Past 72 Hours 08/26/22 15:54 Urine Catheter - Catheter Urine Culture - Final Culture exhibits no growth. 08/26/22 15:26 Nasal Secretion SARS-CoV-2 & FLU Antigen (Rapid) - Final Laboratory Results 08/26/22 15:05: Diff Path Review Reviewed 08/27/22 05:55: Diff Path Review Reviewed 08/27/22 16:13: POC Glucose 188 H 08/27/22 22:32: POC Glucose 144 H 08/28/22 06:46: POC Glucose 184 H 08/28/22 11:20: POC Glucose 192 H Clinical Impression(s) from Imaging Studies Chest X-Ray 08/26/22 16:25 IMPRESSION: Degenerative changes, as described above. No demonstrated acute cardiopulmonary process. Interval resolution of right basilar density seen on the prior study. Electronically Signed: Salvatore Mosher DO at 16:43 EDT Reading Location ID and State: [address] [place] [address] Tel [phone], Service support , Abdomen/Pelvis CT 08/26/22 17:36 IMPRESSION: 1. Gastrostomy tube without evidence of associated inflammatory process. 2. No evidence of acute intra-abdominal process or major interval change. Medications at Discharge Home Medications gemfibrozil 600 mg tablet 600 mg G-tube BIDAC CHOLESTEROL 05/11/17 clopidogrel 75 mg tablet 75 mg G-tube DAILY Blood thinner 08/16/17 atorvastatin 80 mg tablet 80 mg G-tube QHS Cholesterol 10/07/17 ezetimibe 10 mg tablet 10 mg GT QHS CHOLESTEROL 01/14/19 acetaminophen 500 mg tablet 1,000 mg feeding tube Q8H PAIN ##0 03/15/20 cilostazol 100 mg tablet 100 mg GT BID PAD 03/15/20 insulin glargine 100 unit/mL (3 mL) subcutaneous pen (Lantus Solostar U-100 Insulin) 25 units subcut QHS DM 03/15/20 insulin lispro 100 unit/mL subcutaneous cartridge 15 unit subcut TIDCM DM 03/15/20 insulin lispro 100 unit/mL subcutaneous cartridge See Protocol SC TIDCM DM 03/15/20 levetiracetam 500 mg tablet 500 mg GT DAILY@1600 SEIZURES 03/15/20 levetiracetam 750 mg tablet 750 mg GT BID SEIZURES 03/15/20 aspirin 81 mg tablet,delayed release 81 mg feeding tube DAILY CAD 04/25/21 citalopram 10 mg tablet 10 mg feeding tube DAILY DEPRESSION 04/25/21 losartan 50 mg tablet 50 mg feeding tube DAILY HTN 04/25/21 acetaminophen 650 mg/20.3 mL oral suspension 650 mg PO Q4H PRN PAIN/FEVER 10/28/21 aluminum-mag hydroxide-simethicone 200 mg-200 mg-20 mg/5 mL oral susp (Tari- Lanta) 10 ml feeding tube TID PRN BLOATING 10/28/21 gabapentin 300 mg capsule 300 mg feeding tube TID NEUROPATHY 08/26/22 amoxicillin 875 mg-potassium clavulanate 125 mg tablet 1 tab PO BID 5 days #10 tabs 08/28/22 insulin lispro 100 unit/mL subcutaneous pen (Humalog KwikPen (U-100) Insulin) See Protocol subcut ACHS #0 mL 08/28/22 menthol 0.44 %-zinc oxide 20.6 % topical ointment (Calmoseptine) 1 applic topical BID #0 grams 08/28/22 Physical Exam Narrative Please see progress on the same better physical exam finding. Confirmed with the nursing staff. No bedsore or ulcer. Weight / BMI Weight Weight: 286 lb 12.789 oz Body Mass Index (BMI) 43.4 ABG / Lab / Microbiology Data Result Diagrams: 08/27/22 05:55 08/27/22 05:55 Laboratory: Laboratory Results - last 24 hr 08/26/22 15:05: Diff Path Review Reviewed 08/27/22 05:55: Diff Path Review Reviewed 08/27/22 16:13: POC Glucose 188 H 08/27/22 22:32: POC Glucose 144 H 08/28/22 06:46: POC Glucose 184 H 08/28/22 11:20: POC Glucose 192 H Microbiology: Microbiology 08/26/22 15:54 Urine Catheter - Catheter Urine Culture - Final Culture exhibits no growth. 08/26/22 15:26 Nasal Secretion SARS-CoV-2 & FLU Antigen (Rapid) - Final Radiography Diagnostic Testing: Radiology Impression Venous Doppler Study 08/27/22 11:26 Interpretation Summary No evidence for acute deep venous thrombosis bilateral lower extremities with patent and compressible bilateral great saphenous veins. Ordering Physician: Yovani Abbott Referring Physician: Marcin Joseph Performed By: Brooklyn Mayer RVT Meaningful Use Info Meaningful Use Diagnoses (Choose all that apply): None applicable Discharge Plan Admission Admit Date/Time: 08/26/22 17:38 Primary Reason for Your Visit: Suspicion of aspiration. Attending Provider: Yovani Abbott Primary Care Provider: Marcin Joseph Consulting Providers: Jed Padilla Discharge Orders/Prescriptions Prescriptions: New insulin lispro [Humalog KwikPen Insulin] 100 unit/mL Insulin Pen See Protocol subcut ACHS Qty: 0 0RF Protocol: 3. Sliding Scale Insulin Med Dosing Condition: 150-189 mg/dl = 1 unit Condition: 190-229 mg/dl = 2 units Condition: 230-269 mg/dl = 3 units Condition: 270-309 mg/dl = 4 units Condition: 310-349 mg/dl = 5 units Condition: 350-399 mg/dl = 6 units Condition: 400-449 mg/dl = 7 units Condition: Greater than 449 call physician Protocol Text: - Use for Total Daily Dose of Insulin 37-55 units - Obsese, infected, or steroid patients MEDIUM DOSING ALGORITHIM menthol-zinc oxide [Calmoseptine] 0.44-20.6 % Ointment 1 applic topical BID Qty: 0 0RF Protocol: *Topical Application Instructions APPLICATION INSTRUCTIONS: affected area amoxicillin-pot clavulanate 875-125 mg tablet 1 tab PO BID 5 Days Qty: 10 0RF Continued gemfibrozil 600 MG tablet 600 mg G-tube BIDAC clopidogrel 75 MG tablet 75 mg G-tube DAILY Label Comments: Blood thinner atorvastatin 80 MG tablet 80 mg G-tube QHS Label Comments: Cholesterol ezetimibe 10 MG tablet 10 mg GT QHS levetiracetam 750 MG tablet 750 mg GT BID insulin lispro 100 UNIT/ML cartridge 15 unit SC TIDCM insulin glargine [Lantus Solostar U-100 Insulin] 100 UNITS/ML insulin pen 25 units SC QHS insulin lispro 100 UNIT/ML cartridge See Protocol SC TIDCM Protocol: 6. Sliding Scale Insulin Custom Condition: mg/dl range Dose/Route: Number of Units Condition: 151-200 Dose/Route: 2 Condition: 201-250 Dose/Route: 4 Condition: 251-300 Dose/Route: 6 Condition: 301-350 Dose/Route: 8 Condition: 351-400 Dose/Route: 10 Condition: 401-600 Dose/Route: 12 Instruction: CALL MD Protocol Text: Custom Sliding Scale cilostazol 100 MG tablet 100 mg GT BID levetiracetam 500 MG tablet 500 mg GT DAILY@1600 acetaminophen 500 mg Tablet 1,000 mg feeding tube Q8H Qty: 0 losartan 50 mg tablet 50 mg feeding tube DAILY citalopram 10 mg tablet 10 mg feeding tube DAILY aspirin 81 mg Tablet,Delayed Release (Dr/Ec) 81 mg feeding tube DAILY alum-mag hydroxide-simeth [Tari-Lanta] 200-200-20 mg/5 mL Suspension 10 ml feeding tube TID PRN (Reason: BLOATING) acetaminophen 650 mg/20.3 mL Suspension 650 mg PO Q4H PRN (Reason: PAIN/FEVER) gabapentin 300 mg capsule 300 mg feeding tube TID Discontinued sulfamethoxazole-trimethoprim [Bactrim DS] 800-160 mg Tablet 1 tab feeding tube Q12H Referrals / Follow Up: Marcin Joseph MD [Primary Care Provider] - Disposition Discharge Orders: Discharge Patient (Routine); Ordered 08/28/22 Ordered By: Dr. Yovani Abbott Charges/Coding Visit Charges Inpatient E&M: 56640 Disch Hosp >30min
--- NOTE | 2022-08-28 16:11 | CASEMGMT ---
Social work Bedside nurse updated that pt may d/c tonight according to MD Abbott. SW completed greensheet and place on pt chart. Instucted Tufting Machine Fixer to look for it there if pt d/c. CAREN Howe
[2022-08-28 16:55] LABS: Bedside Glucose 189 mg/dL (74-106)
[2022-08-28 18:06] VITALS: BP 137/68; PULSE 64; RESP 18; TEMP 36.9; O2SAT 93
== END 2022-08-28 23:05 | disposition skilled nursing facility (03) | DRG 871 ==
LOC: ED 17:57 → MS3 08-27 02:26
PROVIDERS: Admitting Provider Internal Medicine; Emergency Provider Emergency Medicine; PCP Family Medicine; Visit Provider Internal Medicine
DX: A41.9 Sepsis, unspecified organism (principal); J69.0 Pneumonitis due to inhalation of food and vomit; J96.11 Chronic respiratory failure with hypoxia; I69.351 Hemiplegia and hemiparesis following cerebral infarction affecting right dominant side; Z68.41 Body mass index [BMI] 40.0-44.9, adult; E11.51 Type 2 diabetes mellitus with diabetic peripheral angiopathy without gangrene; Z79.4 Long term (current) use of insulin; E11.65 Type 2 diabetes mellitus with hyperglycemia; E66.01 Morbid (severe) obesity due to excess calories; Z93.1 Gastrostomy status; I69.391 Dysphagia following cerebral infarction; I69.320 Aphasia following cerebral infarction; E78.5 Hyperlipidemia, unspecified; I10 Essential (primary) hypertension; Z20.822 Contact with and (suspected) exposure to COVID-19; Z79.02 Long term (current) use of antithrombotics/antiplatelets; Z79.82 Long term (current) use of aspirin; Z79.899 Other long term (current) drug therapy
CPT/HCPCS: 36415; 71045; 74177; 74230; 80053; 81001; 82962; 83605; 85025; 85610; 85730; 87040; 87086; 87428; 87811; 92610; 92611; 93005; 93970; 94762; 97802; 97803; 99285; J7030; J7040; J7050; J7120; Q9967; A4216; J0295

== ENCOUNTER 2023-02-19 10:09 | Emergency (ER) | payer MEDICARE, MEDICAID, SELFPAY ==
[2023-02-19 10:11] VITALS: PULSE 89; RESP 21; TEMP 36.6; O2SAT 92; BMI 44.0
[2023-02-19 10:15] VITALS: O2SAT 90; O2SAT 93
--- NOTE | 2023-02-19 10:15 | EKG12_ITS ---
Test Reason : SOB Blood Pressure : / mmHG Vent. Rate : 085 BPM Atrial Rate : 085 BPM P-R Int : 204 ms QRS Dur : 064 ms QT Int : 308 ms P-R-T Axes : 057 055 084 degrees QTc Int : 366 ms Normal sinus rhythm Septal infarct , age undetermined Abnormal ECG Confirmed by IZAIAH MILLAN, MURIEL ([id number]), acquisition editor THIAGO PALACIOS ([id number]) on 02/23/2023 2:18:18 PM Referred By: Confirmed By:MURIEL BLISS MD
--- NOTE | 2023-02-19 10:27 | EX.ED.DYSGE1 ---
HPI History of Present Illness Chief Complaint: Shortness of Breath Narrative Narrative: Patient is a 72-year-old male who is nonverbal with global aphasia secondary to a stroke, hyperlipidemia, dysphagia, hypertension presenting with dyspnea. He is from [facility]. [facility] Medical History Anxiety Aphasia Apraxia Convulsions Depression Diabetes Dysphagia Encounter for attention to gastrostomy Heart disease Hemiplegia Hyperlipemia Hypertension PEG (percutaneous endoscopic gastrostomy) adjustment/replacement/removal Peripheral vascular disease Sleep apnea Stroke/cerebrovascular accident Home Medications gemfibrozil 600 mg tablet 600 mg G-tube BIDAC CHOLESTEROL 05/11/17 [History Last Taken 08/26/22] clopidogrel 75 mg tablet 75 mg G-tube DAILY Blood thinner 08/16/17 [History Last Taken 08/26/22] atorvastatin 80 mg tablet 80 mg G-tube QHS Cholesterol 10/07/17 [History Last Taken 08/25/22] ezetimibe 10 mg tablet 10 mg GT QHS CHOLESTEROL 01/14/19 [History Last Taken 08/25/22] acetaminophen 500 mg tablet 1,000 mg feeding tube Q8H PAIN ##0 03/15/20 [History Last Taken 08/26/22] cilostazol 100 mg tablet 100 mg GT BID PAD 03/15/20 [History Last Taken 08/26/22] insulin glargine 100 unit/mL (3 mL) subcutaneous pen (Lantus Solostar U-100 Insulin) 25 units subcut QHS DM 03/15/20 [History Last Taken 08/25/22] insulin lispro 100 unit/mL subcutaneous cartridge 15 unit subcut TIDCM DM 03/15/20 [History Last Taken 08/26/22] insulin lispro 100 unit/mL subcutaneous cartridge See Protocol SC TIDCM DM 03/15/20 [History Last Taken 08/26/22] levetiracetam 500 mg tablet 500 mg GT DAILY@1600 SEIZURES 03/15/20 [History Last Taken 08/25/22] levetiracetam 750 mg tablet 750 mg GT BID SEIZURES 03/15/20 [History Last Taken 08/26/22] aspirin 81 mg tablet,delayed release 81 mg feeding tube DAILY CAD 04/25/21 [History Last Taken 08/26/22] citalopram 10 mg tablet 10 mg feeding tube DAILY DEPRESSION 04/25/21 [History Last Taken 08/26/22] losartan 50 mg tablet 50 mg feeding tube DAILY HTN 04/25/21 [History Last Taken 08/26/22] acetaminophen 650 mg/20.3 mL oral suspension 650 mg PO Q4H PRN PAIN/FEVER 10/28/21 [History Last Taken 08/25/22] aluminum-mag hydroxide-simethicone 200 mg-200 mg-20 mg/5 mL oral susp (Tari-Lanta) 10 ml feeding tube TID PRN BLOATING 10/28/21 [History Last Taken 08/25/22] gabapentin 300 mg capsule 300 mg feeding tube TID NEUROPATHY 08/26/22 [History Last Taken 08/26/22] amoxicillin 875 mg-potassium clavulanate 125 mg tablet 1 tab PO BID 5 days #10 tabs 08/28/22 [Rx Last Taken Unknown] menthol 0.44 %-zinc oxide 20.6 % topical ointment (Calmoseptine) 1 applic topical BID #0 grams 08/28/22 [Rx Last Taken Unknown] oseltamivir 75 mg capsule (Tamiflu) 75 mg PO BID 5 days #10 caps 02/19/23 [Rx Last Taken Unknown] Allergy/AdvReac Type Severity Reaction Status Date / Time No Known Allergies Allergy Verified 10/28/21 09:43 Surgical History Status post abdominal aortic aneurysm repair Social History Smoking Status: Never smoker substance use type: does not use ROS ROS ED Review of Systems ROS Unobtainable: due to mental status EXAM Physical Exam Const Vital Signs: 02/19/23 10:11 02/19/23 10:15 02/19/23 10:15 Temperature 97.8 F Temperature Source Temporal Pulse Rate 89 Respiratory Rate 21 H Respiratory Effort Normal Respiratory Depth Normal Respiratory Pattern Normal Blood Pressure Blood Pressure Mean Pulse Ox 92 90 Oxygen Delivery Method Room Air Room Air Room Air 02/19/23 11:14 02/19/23 13:41 Temperature 97.4 F L Temperature Source Oral Pulse Rate 78 77 Respiratory Rate 15 12 Respiratory Effort Respiratory Depth Respiratory Pattern Blood Pressure 124/58 H 127/66 H Blood Pressure Mean 80 86 Pulse Ox 94 96 Oxygen Delivery Method Room Air Room Air General Appearance ED: NAD HEENT Reports dry mucous membranes Mouth ED: Yes dry mucous membranes Mouth: dry mucous membranes Eyes PERRL and EOMs intact bilaterally Chest Wall inspection of chest normal Cardio regular rate and regular rhythm GI normal to inspection, nondistended, normoactive bowel sounds Neuro Sensorium / Orientation: alert Motor Exam: general weakness Skin no wounds MDM MDM MDM Narrative Medical decision making narrative: Patient presents with concern for shortness of breath for the last couple of days. This is what is in his transfer paperwork. He appears he had an x-ray performed yesterday which was negative. Patient is unable to give much history because he is nonverbal. Differential includes UTI, pneumonia, COVID, influenza, dehydration, electrolyte abnormalities. Patient has history of sepsis and I am unable to determine if the patient has had a fever, however he is tachypneic and his pulse ox is 90 to 92% so a sepsis work-up was undertaken. We will obtain a chest x-ray and urinalysis as well. COVID and flu swab will be obtained. CBC shows no leukocytosis. White cell count is 6.0. Hemoglobin stable 13.6. Platelets are normal at 180. Creatinine slightly elevated 1.37 so he was given a liter of normal saline. Lactic acid normal at 1.5. LFTs are normal. Urinalysis negative for infection. COVID was negative. Patient swabbed and positive for influenza A but a second swab was performed accidentally which is positive for influenza B. I spoke with Dr. Joseph who is on-call and is the patient's physician and he recommended putting the patient on Tamiflu. Chest x-ray my interpretation shows no acute process. Radiologist interprets this and agrees. EKG normal sinus rhythm with a ventricular rate of 85 bpm without sign of ischemic change or ectopy on my interpretation. Impression: 1. Dehydration 2. Influenza Lab Data Labs: Laboratory Results - last 24 hr 02/19/23 02/19/23 10:50 11:30 WBC 6.0 RBC 4.50 L Hgb 13.6 Hct 42.2 MCV 93.8 MCH 30.2 MCHC 32.2 RDW Std Deviation 46.9 H RDW Coeff of Corinne 13.6 Plt Count 180 MPV 9.0 Immature Gran % (Auto) 0.200 Neut % (Auto) 61.5 Lymph % (Auto) 17.4 L [place] % (Auto) 15.0 H Eos % (Auto) 5.1 H Baso % (Auto) 0.8 Absolute Neuts (auto) 3.7 Absolute Lymphs (auto) 1.05 Nucleated RBC % 0 PT 13.2 INR 1.0 APTT 24.8 Sodium 137 Potassium 3.7 Chloride 105 Carbon Dioxide 27.0 Anion Gap 5 BUN 31 H Creatinine 1.37 H Estim Creat Clear Calc 48.54 Est GFR (MDRD) Af Amer 66 Est GFR (MDRD) Non-Af 55 L BUN/Creatinine Ratio 22.6 H Glucose 262 H Lactic Acid 1.5 Calcium 8.3 L Total Bilirubin 0.40 AST 13 L ALT 27 Alkaline Phosphatase 87 Troponin I High Sens 16 Total Protein 6.9 Albumin 3.2 Globulin 3.7 Albumin/Globulin Ratio 0.9 Urine Color Yellow Urine Clarity Clear Urine pH 5.0 Ur Specific Rattan 1.025 Urine Protein 15 H Urine Glucose (UA) 250 H Urine Ketones Negative Urine Occult Blood Negative Urine Nitrite Negative Urine Bilirubin Negative Urine Urobilinogen Normal Ur Leukocyte Esterase Negative Urine RBC 0 SEEN Urine WBC 0 SEEN Ur Squamous Epith Cells 0-5 SEEN Urine Bacteria 0 SEEN Urine Mucus 0 SEEN Radiography Diagnostic Testing: Clinical Impression(s) from Imaging Studies Chest X-Ray 02/19/23 10:55 IMPRESSION: No acute cardiopulmonary process identified. Electronically Signed: Megan Meek MD at 11:11 EDT Reading Location ID and State: [facility] / [place] Tel , Service support , Discharge Plan Triage Chief Complaint: Shortness of Breath ED Provider: Alen uNnez Dx/Rx/DC Orders Instructions: ED Influenza (Adult) Prescriptions: New oseltamivir [Tamiflu] 75 mg capsule 75 mg PO BID 5 Days Qty: 10 0RF No Action gemfibrozil 600 MG tablet 600 mg G-tube BIDAC clopidogrel 75 MG tablet 75 mg G-tube DAILY Patient Comments: Blood thinner atorvastatin 80 MG tablet 80 mg G-tube QHS Patient Comments: Cholesterol ezetimibe 10 MG tablet 10 mg GT QHS levetiracetam 750 MG tablet 750 mg GT BID insulin lispro 100 UNIT/ML cartridge 15 unit SC TIDCM insulin glargine [Lantus Solostar U-100 Insulin] 100 UNITS/ML insulin pen 25 units SC QHS insulin lispro 100 UNIT/ML cartridge See Protocol SC TIDCM Protocol: 6. Sliding Scale Insulin Custom Condition: mg/dl range Dose/Route: Number of Units Condition: 151-200 Dose/Route: 2 Condition: 201-250 Dose/Route: 4 Condition: 251-300 Dose/Route: 6 Condition: 301-350 Dose/Route: 8 Condition: 351-400 Dose/Route: 10 Condition: 401-600 Dose/Route: 12 Instruction: CALL MD Protocol Text: Custom Sliding Scale cilostazol 100 MG tablet 100 mg GT BID levetiracetam 500 MG tablet 500 mg GT DAILY@1600 acetaminophen 500 mg Tablet 1,000 mg feeding tube Q8H Qty: 0 losartan 50 mg tablet 50 mg feeding tube DAILY citalopram 10 mg tablet 10 mg feeding tube DAILY aspirin 81 mg Tablet,Delayed Release (Dr/Ec) 81 mg feeding tube DAILY alum-mag hydroxide-simeth [Tari-Lanta] 200-200-20 mg/5 mL Suspension 10 ml feeding tube TID PRN (Reason: BLOATING) acetaminophen 650 mg/20.3 mL Suspension 650 mg PO Q4H PRN (Reason: PAIN/FEVER) gabapentin 300 mg capsule 300 mg feeding tube TID menthol-zinc oxide [Calmoseptine] 0.44-20.6 % Ointment 1 applic topical BID Qty: 0 0RF Protocol: *Topical Application Instructions APPLICATION INSTRUCTIONS: affected area amoxicillin-pot clavulanate 875-125 mg tablet 1 tab PO BID 5 Days Qty: 10 0RF Primary Care Provider: Marcin Joseph Referrals: Marcin Joseph MD [Primary Care Provider] -
--- NOTE | 2023-02-19 10:55 | RAD_ITS ---
HISTORY: dyspnea -- -- short of breath, nonverbal hx stroke. TECHNIQUE: XR Chest 1 View. COMPARISON: 08/26/2022. FINDINGS: CARDIOMEDIASTINAL BORDERS: Cardiac silhouette within normal limits in size. Mediastinal contour unremarkable. LUNGS: Chronic bibasilar atelectasis or scarring. PLEURA: No pleural effusion or pneumothorax seen. OSSEOUS STRUCTURES: Old right upper rib fractures. RAD/Chest 1 View (Portable) IMPRESSION: No acute cardiopulmonary process identified. Electronically Signed: Megan Meek MD at 11:11 EDT ,
[2023-02-19 11:02] LABS: Absolute Lymphocyte Count 1.05 X10^3/uL (0.83-4.51); Absolute Neutrophil Count 3.7 X10^3/uL (2.0-7.7); Basophil# 0.05 X10^3/uL; Basophil% 0.8 % (0-1); Eosinophil# 0.31 X10^3/uL; Eosinophils% 5.1 % (0-5); Hematocrit 42.2 % (40-54); Hemoglobin 13.6 g/dL (13.0-16.5); Lymphocyte # 1.05 X10^3/ul (0.83-4.51); Lymphocyte % 17.4 % (19-41); Mean Corp Hgb Conc 32.2 g/dL (32-36); Mean Corpuscular Hgb 30.2 pg (27.0-32.0); Mean Corpuscular Volume 93.8 fL (80-94); NRBC Flagged by Analyzer 0 % (0-5); Neutrophil % 61.5 % (47-70); Platelet Count 180 K/mm3 (150-450); RBC Distribution Width CV 13.6 % (11.6-14.6); RBC Distribution Width SD 46.9 fl (35.1-43.9)
[2023-02-19 11:09] LABS: Prothrombin Time (Protime)PT. 13.2 SECONDS (11.7-14.9)
[2023-02-19 11:10] LABS: Partial Thromboplast Time 24.8 Seconds (24.1-36.2)
[2023-02-19 11:14] VITALS: BP 124/58; PULSE 78; RESP 15; TEMP 36.3; O2SAT 94
[2023-02-19 11:23] LABS: ALB/GLOB Ratio 0.9 RATIO (0.9-2.4); AST(SGOT) 13 U/L (15-37); Alanine Aminotransfer ALT/SGPT 27 U/L (16-61); Albumin, Serum 3.2 g/dL (3.2-5.0); Alkaline Phosphatase 87 U/L (45-117); Anion Gap 5 (5-15); BUN 31 mg/dL (7-18); BUN/Creat Ratio 22.6 RATIO (10-20); Calcium,Total 8.3 mg/dL (8.5-10.1); Chloride 105 mmol/L (98-107); Creatinine, Serum 1.37 mg/dL (0.70-1.30); EST Glomerular Filtration Rate 55 mL/min (>60); Est Glom Filt Rate - Afr Amer 66 mL/min (>60); Estimated Creatinine Clearance 48.54 ml/min; Globulin 3.7 g/dL (2.2-4.2); Glucose 262 mg/dL (74-106); Potassium 3.7 mmol/L (3.5-5.1); Protein, Total 6.9 g/dL (6.4-8.2); Sodium Level 137 mmol/L (136-145); Troponin-I HS 16 pg/mL (3.0-78.0)
[2023-02-19 11:29] LABS: Lactic Acid 1.5 mmol/L (0.4-1.9)
--- NOTE | 2023-02-19 11:37 | NURSING ---
pt st cathed for 450cc for ua. pt bridgette fair. attends remain. pt also remains on ra
[2023-02-19 11:40] LABS: Bacteria 0 SEEN /hpf (None Seen); Mucous, Urine 0 SEEN /hpf (<or=2+); Red Blood Cells-Urine 0 SEEN /hpf (0-5); White Blood Cells 0 SEEN /hpf (0-5)
[2023-02-19 12:03] LABS: Color, Urine Yellow (Yellow); Glucose, Dipstick 250 mg/dl (Normal); Ketone-Dipstick Negative (Negative); Leukocyte Esterase-Dipstick Negative /ul (Negative); Nitrite-Dipstick Negative (Negative); Occult Blood-Urine Negative /ul (Negative); Protein-Dipstick 15 mg/dl (Negative); Specific Gravity, Urine 1.025 (1.002-1.030); Urine Bilirubin Dipstick Negative (Negative); Urine Clarity Clear (Clear); Urine Urobilinogen Normal (Normal)
[2023-02-19 12:18] LABS: Squamous Epithelial Cells - UA 0-5 SEEN /hpf (0-5)
--- NOTE | 2023-02-19 12:20 | ED.RN ---
PATIENTS BROTHER KYM ASKING FOR AN UPDATE. KYM INFORMED HE HAS FLU B AND WE ARE STILL WAITING FOR RESULTS. RN WILL CALL WITH UPDATE.
[2023-02-19] MEDS: 0.9% Normal Saline (1000mL) 1,000 ML 999 ML IV (13:02)
[2023-02-19 13:41] VITALS: BP 127/66; PULSE 77; RESP 12; O2SAT 96
[2023-02-19] MEDS: Oseltamivir Phosphate 75 MG Capsule PO (15:01)
[2023-02-19 15:19] VITALS: BP 124/58; PULSE 78; RESP 15; TEMP 36.9; O2SAT 94
== END 2023-02-19 15:00 | disposition skilled nursing facility (03) ==
PROVIDERS: Emergency Provider Student in an Organized Health Care Education/Training Program; PCP Family Medicine; Visit Provider Student in an Organized Health Care Education/Training Program
DX: J10.1 Influenza due to other identified influenza virus with other respiratory manifestations (principal); E11.9 Type 2 diabetes mellitus without complications; Z79.4 Long term (current) use of insulin; E86.0 Dehydration; Z11.52 Encounter for screening for COVID-19; I69.320 Aphasia following cerebral infarction; I10 Essential (primary) hypertension; R13.10 Dysphagia, unspecified; E78.5 Hyperlipidemia, unspecified; Z79.82 Long term (current) use of aspirin; Z79.02 Long term (current) use of antithrombotics/antiplatelets; Z79.899 Other long term (current) drug therapy
CPT/HCPCS: 71045; 80053; 81001; 83605; 84484; 85025; 85610; 85730; 87040; 87086; 87088; 87149; 87428; 93005; 96360; 99285; A4216

== ENCOUNTER 2023-07-10 15:44 | Emergency (ER) | payer MEDICARE, MEDICAID, SELFPAY ==
[2023-07-10 15:46] VITALS: BP 150/87; PULSE 75; RESP 14; TEMP 36.5; O2SAT 95; BMI 44.9
--- NOTE | 2023-07-10 17:44 | NURSING ---
CALLED [facility], ETA IS 2 TO 3 HOURS
[2023-07-10 18:03] VITALS: PULSE 69; RESP 20; O2SAT 97
[2023-07-10 18:32] VITALS: BP 131/74; PULSE 69; RESP 20; TEMP 36.5; O2SAT 98
--- NOTE | 2023-07-10 19:07 | CON.PCM.SX_ITS ---
Assessment & Plan Assessment/Plan (1) PEG tube malfunction: PLAN: The patient's PEG tube appears to be very old. It is very broken down and the tip of it is broken. I discussed this with him and offered to replace his G-tube for him. I discussed the risks of bleeding and infection and the patient agreed to proceed. I removed his old externally removable PEG tube and through the tract I placed a new 20 Slovenian replacement feeding tube and inflated the balloon with 6 cc of saline. The tube went in without resistance and the patient tolerated well. Afterwards an air bolus was placed through the tube and clearly heard in the stomach. The patient had nice established tract and this was removed and replaced without any resistance. The bumper was slid down and a dressing was placed. Patient tolerated the procedure well. Eddy Newman MD Pager: [facility] [address] [place] [address], [address] [place] [id number] Office: HPI Consult Data Date of Consult: 07/10/23 HPI Narrative HPI Narrative: JUANY MCDOWELL, is a 73 M who presented from his long term with nonfunctioning G-tube. Patient's G-tube broke at the end. It was placed 2 years ago. [facility] Medical History Anxiety Aphasia Apraxia Convulsions Depression Diabetes Dysphagia Encounter for attention to gastrostomy Heart disease Hemiplegia Hyperlipemia Hypertension PEG (percutaneous endoscopic gastrostomy) adjustment/replacement/removal Peripheral vascular disease Sleep apnea Stroke/cerebrovascular accident Home Medications gemfibrozil 600 mg tablet 600 mg G-tube BIDAC CHOLESTEROL 05/11/17 [History Last Taken 08/26/22] clopidogrel 75 mg tablet 75 mg G-tube DAILY Blood thinner 08/16/17 [History Last Taken 08/26/22] atorvastatin 80 mg tablet 80 mg G-tube QHS Cholesterol 10/07/17 [History Last Taken 08/25/22] ezetimibe 10 mg tablet 10 mg GT QHS CHOLESTEROL 01/14/19 [History Last Taken 08/25/22] cilostazol 100 mg tablet 100 mg GT BID PAD 03/15/20 [History Last Taken ] insulin glargine 100 unit/mL (3 mL) subcutaneous pen (Lantus Solostar U-100 Insulin) 25 units subcut QHS DM 03/15/20 [History Last Taken 08/25/22] insulin lispro 100 unit/mL subcutaneous cartridge 15 unit subcut TIDCM DM 03/15/20 [History Last Taken 08/26/22] insulin lispro 100 unit/mL subcutaneous cartridge See Protocol SC TIDCM DM 03/15/20 [History Last Taken 08/26/22] aspirin 81 mg tablet,delayed release 81 mg feeding tube DAILY CAD 04/25/21 [History Last Taken 08/26/22] citalopram 10 mg tablet 5 mg feeding tube DAILY DEPRESSION 04/25/21 [History Last Taken 08/26/22] losartan 50 mg tablet 50 mg feeding tube DAILY HTN 04/25/21 [History Last Taken 08/26/22] aluminum-mag hydroxide-simethicone 200 mg-200 mg-20 mg/5 mL oral susp (Tari- Lanta) 10 ml feeding tube TID PRN BLOATING 10/28/21 [History Last Taken 08/25/22] gabapentin 300 mg capsule 300 mg feeding tube TID NEUROPATHY 08/26/22 [History Last Taken 08/26/22] menthol 0.44 %-zinc oxide 20.6 % topical ointment (Calmoseptine) 1 applic topical BID #0 grams 08/28/22 [Rx Last Taken Unknown] Allergy/AdvReac Type Severity Reaction Status Date / Time No Known Allergies Allergy Verified 07/10/23 15:47 Surgical History Status post abdominal aortic aneurysm repair Social History Smoking Status: Never smoker substance use type: does not use Physical Exam Const alert and oriented x3 HEENT normocephalic Eyes PERRL Lymph Lymphatic: no lymphadenopathy noted Resp normal respiratory effort Cardio Rate: regular rate Rhythm: regular rhythm GI soft to palpation and non-tender
[2023-07-10 20:04] VITALS: BP 134/72; PULSE 78; RESP 16; TEMP 36.6; O2SAT 97
--- NOTE | 2023-07-10 22:47 | EDS_ITS ---
HPI History of Present Illness Chief Complaint: General Illness Narrative Narrative: 73-year-old male presented for PEG tube replacement. Apparently the end of this is cracked. [facility] Medical History Anxiety Aphasia Apraxia Convulsions Depression Diabetes Dysphagia Encounter for attention to gastrostomy Heart disease Hemiplegia Hyperlipemia Hypertension PEG (percutaneous endoscopic gastrostomy) adjustment/replacement/removal Peripheral vascular disease Sleep apnea Stroke/cerebrovascular accident Home Medications gemfibrozil 600 mg tablet 600 mg G-tube BIDAC CHOLESTEROL 05/11/17 [History Last Taken 08/26/22] clopidogrel 75 mg tablet 75 mg G-tube DAILY Blood thinner 08/16/17 [History Last Taken 08/26/22] atorvastatin 80 mg tablet 80 mg G-tube QHS Cholesterol 10/07/17 [History Last Taken 08/25/22] ezetimibe 10 mg tablet 10 mg GT QHS CHOLESTEROL 01/14/19 [History Last Taken 08/25/22] cilostazol 100 mg tablet 100 mg GT BID PAD 03/15/20 [History Last Taken 08/26/22] insulin glargine 100 unit/mL (3 mL) subcutaneous pen (Lantus Solostar U-100 Insulin) 25 units subcut QHS DM 03/15/20 [History Last Taken 08/25/22] insulin lispro 100 unit/mL subcutaneous cartridge 15 unit subcut TIDCM DM 03/15/20 [History Last Taken 08/26/22] insulin lispro 100 unit/mL subcutaneous cartridge See Protocol SC TIDCM DM 03/15/20 [History Last Taken 08/26/22] aspirin 81 mg tablet,delayed release 81 mg feeding tube DAILY CAD 04/25/21 [History Last Taken 08/26/22] citalopram 10 mg tablet 5 mg feeding tube DAILY DEPRESSION 04/25/21 [History Last Taken 08/26/22] losartan 50 mg tablet 50 mg feeding tube DAILY HTN 04/25/21 [History Last Taken 08/26/22] aluminum-mag hydroxide-simethicone 200 mg-200 mg-20 mg/5 mL oral susp (Tari- Lanta) 10 ml feeding tube TID PRN BLOATING 10/28/21 [History Last Taken 08/25/22] gabapentin 300 mg capsule 300 mg feeding tube TID NEUROPATHY 08/26/22 [History Last Taken 08/26/22] menthol 0.44 %-zinc oxide 20.6 % topical ointment (Calmoseptine) 1 applic topical BID #0 grams 08/28/22 [Rx Last Taken Unknown] Allergy/AdvReac Type Severity Reaction Status Date / Time No Known Allergies Allergy Verified 07/10/23 15:47 Surgical History Status post abdominal aortic aneurysm repair Social History Smoking Status: Never smoker substance use type: does not use ROS ROS ED Constitutional Constitutional ED: Denies chills, fever(s) or sweats Eyes Eyes: Denies blurry vision or change in vision ENT ENT ED: Denies ear pain or sore throat Cardiovascular Cardiovascular: Denies chest pain, palpitations or racing heartbeat Respiratory/Chest Respiratory/Chest: Denies cough, dyspnea or sputum Gastrointestinal Gastrointestinal: Denies abdominal pain, constipation, diarrhea, nausea or vomiting Genitourinary Genitourinary ED: Denies dysuria, hematuria or urinary frequency Musculoskeletal Musculoskeletal: Denies arthralgias, myalgias or neck pain Integumentary Denies abscess, Abrasions or rash Neurologic Neurologic: Denies headache(s), paresthesias or weakness Psychiatric Psychiatric: Denies anxiety, depression, suicidal ideation or suicidal thoughts Endocrine Endocrinology: Denies polydipsia or polyuria EXAM Physical Exam Const Vital Signs: 07/10/23 15:46 07/10/23 16:42 07/10/23 18:03 Temperature 97.7 F L Temperature Source Temporal Pulse Rate 75 69 Respiratory Rate 14 20 H Respiratory Effort Normal Non-Labored Respiratory Pattern Normal Blood Pressure 150/87 H Blood Pressure Mean 108 Pulse Ox 95 97 Oxygen Delivery Method Room Air Room Air 07/10/23 18:32 07/10/23 20:04 Temperature 97.7 F L 97.9 F Temperature Source Temporal Pulse Rate 69 78 Respiratory Rate 20 H 16 Respiratory Effort Respiratory Pattern Blood Pressure 131/74 H 134/72 H Blood Pressure Mean 93 92 Pulse Ox 98 97 Oxygen Delivery Method Room Air Positive well nourished General Appearance ED: NAD; Negative for pallor HEENT Reports moist mucous membranes Eyes PERRL and EOMs intact bilaterally Resp normal respiratory effort and clear to auscultation bilaterally Cardio regular rate and regular rhythm GI normal to inspection, nondistended, normoactive bowel sounds GI Narrative: PEG tube in place. Neuro Sensorium / Orientation: alert Psych Psych Narrative: Mental status baseline Skin General Skin Exam: Negative for jaundice or pallor MDM MDM MDM Narrative Medical decision making narrative: Patient presenting with PEG tube replacement. This is an older style and I did speak with Dr. Frances about it who came and replaced the PEG tube with a 20 Upper Sorbian. Patient tolerated this well. Dr. Dimas felt that she was in good position and did get gastric contents with aspiration and at this point the patient will be placed facility. Impression: 1. PEG tube replacement Discharge Plan Triage Chief Complaint: General Illness ED Provider: Alen Nunez Dx/Rx/DC Orders Instructions: ED Feeding Tube Replacement Prescriptions: No Action gemfibrozil 600 MG tablet 600 mg G-tube BIDAC clopidogrel 75 MG tablet 75 mg G-tube DAILY Patient Comments: Blood thinner atorvastatin 80 MG tablet 80 mg G-tube QHS Patient Comments: Cholesterol ezetimibe 10 MG tablet 10 mg GT QHS insulin lispro 100 UNIT/ML cartridge 15 unit SC TIDCM insulin glargine [Lantus Solostar U-100 Insulin] 100 UNITS/ML insulin pen 25 units SC QHS insulin lispro 100 UNIT/ML cartridge See Protocol SC TIDCM Protocol: 6. Sliding Scale Insulin Custom Condition: mg/dl range Dose/Route: Number of Units Condition: 151-200 Dose/Route: 2 Condition: 201-250 Dose/Route: 4 Condition: 251-300 Dose/Route: 6 Condition: 301-350 Dose/Route: 8 Condition: 351-400 Dose/Route: 10 Condition: 401-600 Dose/Route: 12 Instruction: CALL MD Protocol Text: Custom Sliding Scale cilostazol 100 MG tablet 100 mg GT BID losartan 50 mg tablet 50 mg feeding tube DAILY citalopram 10 mg tablet 5 mg feeding tube DAILY aspirin 81 mg Tablet,Delayed Release (Dr/Ec) 81 mg feeding tube DAILY alum-mag hydroxide-simeth [Tari-Lanta] 200-200-20 mg/5 mL Suspension 10 ml feeding tube TID PRN (Reason: BLOATING) gabapentin 300 mg capsule 300 mg feeding tube TID menthol-zinc oxide [Calmoseptine] 0.44-20.6 % Ointment 1 applic topical BID Qty: 0 0RF Protocol: *Topical Application Instructions APPLICATION INSTRUCTIONS: affected area Primary Care Provider: Marcin Joseph Referrals: Marcin Joseph MD [Primary Care Provider] - Disposition Disposition: Home, Self Care Discharge Date/Time: 07/10/23 20:04
== END 2023-07-10 20:04 | disposition home or self-care (01) ==
PROVIDERS: Emergency Provider Student in an Organized Health Care Education/Training Program; PCP Family Medicine; Visit Provider Student in an Organized Health Care Education/Training Program
DX: K94.23 Gastrostomy malfunction (principal); Z79.4 Long term (current) use of insulin; E11.9 Type 2 diabetes mellitus without complications; I10 Essential (primary) hypertension; E78.5 Hyperlipidemia, unspecified; Z79.02 Long term (current) use of antithrombotics/antiplatelets; Z79.82 Long term (current) use of aspirin; Z79.899 Other long term (current) drug therapy
CPT/HCPCS: 43762; 99282; A4216

== ENCOUNTER 2023-12-29 01:22 | Emergency (ER) | payer MEDICARE, MEDICAID, SELFPAY ==
[2023-12-29 01:22] VITALS: BP 144/67; PULSE 64; RESP 18; TEMP 37.1; O2SAT 94; BMI 44.9
--- NOTE | 2023-12-29 01:39 | EX.ED.DYSGE1 ---
HPI History of Present Illness Chief Complaint: Other, Pain/Inj Narrative Narrative: Patient is a 73-year-old male with past medical history of aphasia, hyperlipidemia, hemiplegia, PEG tube, dysphagia, hypertension, NIMO, diabetes, CVA who presented to the emergency department with a chief complaint of PEG tube removal. According to the staff at his nursing facility they noted that his PEG tube has been out roughly about an hour and they attempted to replace this there and were unsuccessful prompting them to send him here for the evaluation management. They note that his PEG tube has been in place for a significant amount of time. [facility] Medical History Aphasia Apraxia Heart disease Hyperlipemia Hemiplegia Convulsions Encounter for attention to gastrostomy PEG (percutaneous endoscopic gastrostomy) adjustment/replacement/removal Dysphagia Hypertension Sleep apnea Anxiety Peripheral vascular disease Depression Diabetes Stroke/cerebrovascular accident Home Medications ?Medication ?Instructions ?Recorded ?Last Taken ?Type gemfibrozil 600 mg tablet 600 mg G-tube BIDAC CHOLESTEROL 05/11/17 08/26/22 History clopidogrel 75 mg tablet 75 mg G-tube DAILY Blood thinner 08/16/17 08/26/22 History atorvastatin 80 mg tablet 80 mg G-tube QHS Cholesterol 10/07/17 08/25/22 History ezetimibe 10 mg tablet 10 mg GT QHS CHOLESTEROL 01/14/19 08/25/22 History cilostazol 100 mg tablet 100 mg GT BID PAD 03/15/20 08/26/22 History insulin glargine 100 unit/mL (3 25 units subcut QHS DM 03/15/20 08/25/22 History mL) subcutaneous pen (Lantus Solostar U-100 Insulin) insulin lispro 100 unit/mL 15 unit subcut TIDCM DM 03/15/20 08/26/22 History subcutaneous cartridge insulin lispro 100 unit/mL See Protocol SC TIDCM DM 03/15/20 08/26/22 History subcutaneous cartridge aspirin 81 mg tablet,delayed 81 mg feeding tube DAILY CAD 04/25/21 08/26/22 History release citalopram 10 mg tablet 5 mg feeding tube DAILY DEPRESSION 04/25/21 08/26/22 History losartan 50 mg tablet 50 mg feeding tube DAILY HTN 04/25/21 08/26/22 History aluminum-mag hydroxide-simethicone 10 ml feeding tube TID PRN BLOATING 10/28/21 08/25/22 History 200 mg-200 mg-20 mg/5 mL oral susp (Tari-Lanta) gabapentin 300 mg capsule 300 mg feeding tube TID NEUROPATHY 08/26/22 08/26/22 History menthol 0.44 %-zinc oxide 20.6 % 1 applic topical BID #0 grams 08/28/22 Unknown Rx topical ointment (Calmoseptine) Allergy/AdvReac Type Severity Reaction Status Date / Time No Known Allergies Allergy Verified 12/29/23 01:23 Surgical History Status post abdominal aortic aneurysm repair Social History Smoking Status: Never smoker substance use type: does not use ROS ROS ED ROS Narrative Patient is aphasic therefore review of systems is unobtainable therefore acute care caveat applies EXAM Physical Exam Narrative Exam Narrative: General: Patient was lying in bed rest comfortably did not appear to be in acute distress Head: Atraumatic, normocephalic Eyes: PERRL bilaterally, EOMI bilaterally Cardiovascular: Regular rate and rhythm Respiratory: Clear to auscultation bilaterally Abdomen: No tenderness palpation, G-tube is out of the chronic G-tube site some blood was noted on the dressing that is applied over the whole Neurological: Patient is at his baseline according to his nursing staff at the nursing facility as well as here and EMS Skin: Once again the G-tube site has some old blood noted on it with no G-tube in place. No concern for infection no surrounding erythema or purulent drainage noted Const Vital Signs: 12/29/23 01:22 Temperature 98.7 F Temperature Source Temporal Pulse Rate 64 Respiratory Rate 18 Blood Pressure 144/67 H Blood Pressure Mean 92 Pulse Ox 94 Oxygen Delivery Method Room Air MDM MDM MDM Narrative Medical decision making narrative: Patient is a 73-year-old male who presented to the emergency department chief complaint of G-tube being pulled out approximately 1 hour ago. Did confirm with facility and they note this was a 20 Maltese G-tube that was previously placed and I reviewed old records which confirmed this as well. Patient will have G-tube replaced here in the emergency department. Gastric tube was replaced here in the emergency department. Patient tolerated this procedure well. Gastric contents were aspirated here. Patient will be sent back to his facility. He can follow-up with his primary care physician outpatient setting. He can return with worsening symptoms or other concerns. Discharge Plan Triage Chief Complaint: Other, Pain/Inj ED Provider: Shiv Phan Dx/Rx/DC Orders Clinical Impression: Malfunction of gastrostomy tube Prescriptions: No Action gemfibrozil 600 MG tablet 600 mg G-tube BIDAC clopidogrel 75 MG tablet 75 mg G-tube DAILY Patient Comments: Blood thinner atorvastatin 80 MG tablet 80 mg G-tube QHS Patient Comments: Cholesterol ezetimibe 10 MG tablet 10 mg GT QHS insulin lispro 100 UNIT/ML cartridge 15 unit SC TIDCM insulin glargine [Lantus Solostar U-100 Insulin] 100 UNITS/ML insulin pen 25 units SC QHS insulin lispro 100 UNIT/ML cartridge See Protocol SC TIDCM Protocol: 6. Sliding Scale Insulin Custom Condition: mg/dl range Dose/Route: Number of Units Condition: 151-200 Dose/Route: 2 Condition: 201-250 Dose/Route: 4 Condition: 251-300 Dose/Route: 6 Condition: 301-350 Dose/Route: 8 Condition: 351-400 Dose/Route: 10 Condition: 401-600 Dose/Route: 12 Instruction: CALL MD Protocol Text: Custom Sliding Scale cilostazol 100 MG tablet 100 mg GT BID losartan 50 mg tablet 50 mg feeding tube DAILY citalopram 10 mg tablet 5 mg feeding tube DAILY aspirin 81 mg Tablet,Delayed Release (Dr/Ec) 81 mg feeding tube DAILY alum-mag hydroxide-simeth [Tari-Lanta] 200-200-20 mg/5 mL Suspension 10 ml feeding tube TID PRN (Reason: BLOATING) gabapentin 300 mg capsule 300 mg feeding tube TID menthol-zinc oxide [Calmoseptine] 0.44-20.6 % Ointment 1 applic topical BID Qty: 0 0RF Protocol: *Topical Application Instructions APPLICATION INSTRUCTIONS: affected area Primary Care Provider: Marcin Joseph Referrals: Marcin Joseph MD [Primary Care Provider] - Activity Restrictions/Additional Instructions: Follow-up with primary care physician. Return with worsening symptoms or any other concerns. Print Language: Peruvian Disposition Disposition: Home, Self Care
--- NOTE | 2023-12-29 02:12 | ED.RN ---
NEW 20 FR 6.7 MM GASTROSTOMY TUBE PLACED. INFLATION OF BALLOON W/ 6 CC 0.9% NORMAL SALINE. PROCEDURE COMPLETED BY DOCTOR REYNAGA.
[2023-12-29 05:22] VITALS: BP 162/76; PULSE 74; RESP 15; O2SAT 91
[2023-12-29 06:10] VITALS: BP 164/76; PULSE 72; RESP 16; TEMP 36.3; O2SAT 91
== END 2023-12-29 06:56 | disposition home or self-care (01) ==
PROVIDERS: Emergency Provider Emergency Medicine; PCP Family Medicine; Visit Provider Emergency Medicine
DX: K94.29 Other complications of gastrostomy (principal); E11.9 Type 2 diabetes mellitus without complications; E78.5 Hyperlipidemia, unspecified; I10 Essential (primary) hypertension
CPT/HCPCS: 43762; 99283

== ENCOUNTER 2024-09-24 09:51 | Emergency (ER) | payer MEDICARE, SELFPAY ==
[2024-09-24 09:52] VITALS: BP 118/54; PULSE 81; RESP 15; TEMP 36.6; O2SAT 95; BMI 45.3
--- NOTE | 2024-09-24 10:16 | CT_ITS ---
EXAM: CT Chest Without Intravenous Contrast CLINICAL INDICATION: RIGHT POST THORACIC INJURY TECHNIQUE: Axial computed tomography images of the chest without intravenous contrast. This CT exam was performed using one or more of the following dose reduction techniques: automated exposure control, adjustment of the mA and/or kV according to patient size, and/or use of iterative reconstruction technique. COMPARISON: No relevant prior studies available. FINDINGS: LUNGS AND PLEURAL SPACES: Lung emphysema/COPD. No consolidation. No pneumothorax. No significant effusion. HEART: Unremarkable. No cardiomegaly. No significant pericardial effusion. No significant coronary artery calcifications. MEDIASTINUM: A few prominent mediastinal lymph nodes measuring up to 6 mm. Small esophageal hiatal hernia. BONES/JOINTS: Cortical irregularity of the left 10th, 9th and 8th ribs could be nondisplaced fractures. Clinical correlation is recommended. No dislocation. SOFT TISSUES: Unremarkable. VASCULATURE: Scattered calcified atherosclerotic disease of aorta. No thoracic aortic aneurysm. LYMPH NODES: See above. CT/Chest without Contrast IMPRESSION: 1. Cortical irregularity of the left 10th, 9th and 8th ribs could be nondispla horacio fractures. Clinical correlation is recommended. 2. Small esophageal hiatal hernia. 3. Lung emphysema/COPD. Reading Location: [id number]
--- NOTE | 2024-09-24 10:31 | EX.ED.DYSGE1 ---
HPI History of Present Illness Chief Complaint: Wound Informant: other Narrative Narrative: Sent in from facility for evaluation bruise noted posterior shoulder/back. History of stroke right side paralysis dysphagia patient unable to tell me much. Records note he is on aspirin and Plavix he is DNR CCA. From nursing notes, he may have been laying on the call light for unknown amount of time. [facility] Medical History Aphasia Apraxia Heart disease Hyperlipemia Hemiplegia Convulsions Encounter for attention to gastrostomy PEG (percutaneous endoscopic gastrostomy) adjustment/replacement/removal Dysphagia Hypertension Sleep apnea Anxiety Peripheral vascular disease Depression Diabetes Stroke/cerebrovascular accident Home Medications ?Medication ?Instructions ?Recorded ?Last Taken ?Type gemfibrozil 600 mg tablet 600 mg G-tube BIDAC CHOLESTEROL 05/11/17 08/26/22 History clopidogrel 75 mg tablet 75 mg G-tube DAILY Blood thinner 08/16/17 08/26/22 History atorvastatin 80 mg tablet 80 mg G-tube QHS Cholesterol 10/07/17 08/25/22 History ezetimibe 10 mg tablet 10 mg GT QHS CHOLESTEROL 01/14/19 08/25/22 History cilostazol 100 mg tablet 100 mg G-tube BID PAD 03/15/20 08/26/22 History insulin glargine 100 unit/mL (3 39 unit subcut QHS DM 03/15/20 08/25/22 History mL) subcutaneous pen (Lantus Solostar U-100 Insulin) insulin lispro 100 unit/mL 20 unit subcut TIDCM DM 03/15/20 08/26/22 History subcutaneous cartridge insulin lispro 100 unit/mL See Protocol SC TIDCM DM 03/15/20 08/26/22 History subcutaneous cartridge aspirin 81 mg tablet,delayed 81 mg feeding tube DAILY CAD 04/25/21 08/26/22 History release citalopram 10 mg tablet 20 mg feeding tube DAILY DEPRESSION 04/25/21 08/26/22 History losartan 50 mg tablet 50 mg feeding tube DAILY HTN 04/25/21 08/26/22 History aluminum-mag hydroxide-simethicone 10 ml feeding tube TID PRN BLOATING 10/28/21 08/25/22 History 200 mg-200 mg-20 mg/5 mL oral susp (Tari-Lanta) gabapentin 300 mg capsule 300 mg feeding tube TID NEUROPATHY 08/26/22 08/26/22 History menthol 0.44 %-zinc oxide 20.6 % 1 applic topical BID #0 grams 08/28/22 Unknown Rx topical ointment (Calmoseptine) bisacodyl 10 mg rectal suppository 10 mg HI DAILY PRN constipation 09/24/24 Unknown History levetiracetam 500 mg tablet 500 mg PO QHS 09/24/24 Unknown History levetiracetam 750 mg tablet 750 mg PO DAILY 09/24/24 Unknown History Allergy/AdvReac Type Severity Reaction Status Date / Time No Known Allergies Allergy Verified 12/29/23 01:23 Surgical History Status post abdominal aortic aneurysm repair Social History Smoking Status: Never smoker substance use type: does not use ROS ROS ED Review of Systems ROS Unobtainable: other Details: Aphasia Integumentary Reports other Details: Bruise EXAM Physical Exam Const Vital Signs: 09/24/24 09:52 09/24/24 11:00 09/24/24 11:46 Temperature 97.9 F 98 F Temperature Source Oral Pulse Rate 81 87 Respiratory Rate 15 18 Blood Pressure 118/54 L 117/73 Blood Pressure Mean 75 87 Pulse Ox 95 95 95 Oxygen Delivery Method Nasal Cannula Nasal Cannula Oxygen Flow Rate (L/min) 2 2 09/24/24 11:51 09/24/24 13:22 Temperature Temperature Source Pulse Rate 82 72 Respiratory Rate 16 17 Blood Pressure 118/78 142/66 H Blood Pressure Mean 91 91 Pulse Ox 98 95 Oxygen Delivery Method Room Air Oxygen Flow Rate (L/min) Positive well nourished Constitutional Narrative: Nontoxic aphasic on chronic nasal cannula 2 L. HEENT normocephalic and atraumatic Eyes General Eye ED: Yes normal appearance of both eyes Neck full ROM Resp normal respiratory effort and normal air movement Cardio regular rate and regular rhythm GI soft to palpation Back/Spine Back/Spine Narrative: Back: Noted ecchymosis linear palm size right posterior thoracic lateral to the scapula. Mild tenderness to palpation. Gait is intact. Neuro Neuro Narrative: Dysphagia, he has right side residual paralysis from previous stroke Skin Skin Narrative: See above MDM MDM MDM Narrative Medical decision making narrative: Interventions / MDM: Differential diagnosis: Contusion, history of CVA with right hemiplegia Diagnosis considered but do not suspect: N/A My EKG interpretation: N/A Imaging independently reviewed and interpreted by myself: CT chest noncontrast: Question abnormal contours ribs 8 through 10 on the left side per radiology. No right-sided fractures noted. External documents reviewed: N/A Test considered but not ordered:N/A ED course: Patient dysphagia right sided weakness noted bruise posterior back. There is no shoulder involvement. Skin is intact. There are some slight tenderness around the area. I will check CT chest for evaluation. CT chest per radiology: Tors ribs 8 through 10 left clinically correlate for fractures. Nontender region. His contusion right posterior ribs. No abnormalities in the right side. No distress. He is discharged back to facility. Re-evaluation: stable Disposition discussed with patient/family/significant other: Patient Case discussed with consulting clinician: N/A This note was generated with [employer] dictation software. It may contain incorrect words, spelling, and punctuation that were not noted in checking the note before signing. Radiography Diagnostic Testing: Clinical Impression(s) from Imaging Studies Chest CT 09/24/24 10:16 IMPRESSION: 1. Cortical irregularity of the left 10th, 9th and 8th ribs could be nondisplaced fractures. Clinical correlation is recommended. 2. Small esophageal hiatal hernia. 3. Lung emphysema/COPD. Reading Location: [facility] Discharge Plan Triage Chief Complaint: Wound ED Provider: Nahid Ortega Dx/Rx/DC Orders Clinical Impression: Contusion of back, Global aphasia, Hemiparesis, right Instructions: ED Back Contusion Prescriptions: No Action gemfibrozil 600 MG tablet 600 mg G-tube BIDAC clopidogrel 75 MG tablet 75 mg G-tube DAILY Patient Comments: Blood thinner atorvastatin 80 MG tablet 80 mg G-tube QHS Patient Comments: Cholesterol ezetimibe 10 MG tablet 10 mg GT QHS insulin lispro 100 UNIT/ML cartridge 20 unit SC TIDCM insulin glargine [Lantus Solostar U-100 Insulin] 100 UNITS/ML insulin pen 39 unit SC QHS insulin lispro 100 UNIT/ML cartridge See Protocol SC TIDCM Protocol: 6. Sliding Scale Insulin Custom Condition: mg/dl range Dose/Route: Number of Units Condition: 151-200 Dose/Route: 2 Condition: 201-250 Dose/Route: 4 Condition: 251-300 Dose/Route: 6 Condition: 301-350 Dose/Route: 8 Condition: 351-400 Dose/Route: 10 Condition: 401-600 Dose/Route: 12 Instruction: CALL MD Protocol Text: Custom Sliding Scale cilostazol 100 MG tablet 100 mg G-tube BID losartan 50 mg tablet 50 mg feeding tube DAILY citalopram 10 mg tablet 20 mg feeding tube DAILY aspirin 81 mg Tablet,Delayed Release (Dr/Ec) 81 mg feeding tube DAILY alum-mag hydroxide-simeth [Tari-Lanta] 200-200-20 mg/5 mL Suspension 10 ml feeding tube TID PRN (Reason: BLOATING) gabapentin 300 mg capsule 300 mg feeding tube TID menthol-zinc oxide [Calmoseptine] 0.44-20.6 % Ointment 1 applic topical BID Qty: 0 0RF Protocol: *Topical Application Instructions APPLICATION INSTRUCTIONS: affected area bisacodyl 10 mg suppository 10 mg HI DAILY PRN (Reason: constipation) levetiracetam 500 mg tablet 500 mg PO QHS levetiracetam 750 mg tablet 750 mg PO DAILY Primary Care Provider: Marcin Joseph Referrals: Marcin Joseph MD [Primary Care Provider] - 1 Week Activity Restrictions/Additional Instructions: CT chest, no fractures noted of shoulder or right sided ribs. Abnormal contours of ribs left side 8 through 10 per radiology. Clinically no tenderness in this area for concerns for fracture. Print Language: Tajik Disposition Disposition: Home, Self Care Discharge Date/Time: 09/24/24 14:39
[2024-09-24 11:00] VITALS: O2SAT 95
[2024-09-24 11:46] VITALS: BP 117/73; PULSE 87; RESP 18; TEMP 36.6; O2SAT 95
[2024-09-24 11:51] VITALS: BP 118/78; PULSE 82; RESP 16; O2SAT 98
[2024-09-24 13:22] VITALS: BP 142/66; PULSE 72; RESP 17; O2SAT 95
== END 2024-09-24 14:39 | disposition home or self-care (01) ==
PROVIDERS: Emergency Provider Emergency Medicine; PCP Family Medicine; Visit Provider Emergency Medicine
DX: S30.0XXA Contusion of lower back and pelvis, initial encounter (principal); I69.351 Hemiplegia and hemiparesis following cerebral infarction affecting right dominant side; E11.9 Type 2 diabetes mellitus without complications; S20.221A Contusion of right back wall of thorax, initial encounter; E78.5 Hyperlipidemia, unspecified; Z79.82 Long term (current) use of aspirin; R47.01 Aphasia; I10 Essential (primary) hypertension; Z79.02 Long term (current) use of antithrombotics/antiplatelets; I69.391 Dysphagia following cerebral infarction; Z66 Do not resuscitate; X58.XXXA Exposure to other specified factors, initial encounter
CPT/HCPCS: 71250; 99284

== ENCOUNTER 2024-12-23 00:24 | Emergency (ER) | payer MEDICARE, SELFPAY ==
[2024-12-23 00:25] VITALS: BP 164/75; PULSE 66; RESP 18; TEMP 36.9; O2SAT 100; BMI 44.4
--- NOTE | 2024-12-23 01:10 | RAD_ITS ---
PROCEDURE: ABDOMEN SINGLE VIEW (PORTABLE) 12/23/2024 REASON FOR EXAM: S/P PEG TUBE PLACEMENT TECHNIQUE: ABDOMEN SINGLE VIEW (PORTABLE) COMPARISON: CT 08/26/2022 FINDINGS: G-tube tip overlies the body of the stomach. After injection, the stomach and duodenal bulb opacify, no evidence for contrast leakage. Nonobstructed bowel-gas pattern. RAD/Abdomen Single View (Portable) IMPRESSION: G-tube tip is in the body of the stomach. [facility]
--- NOTE | 2024-12-23 01:11 | EX.ED.DYSGE1 ---
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 He has a PEG tube in place secondary to this. skilled nursing states that sometime this evening he somehow was able to remove his PEG tube. With concern the opening will stricture shut he was sent to the ER to have the PEG tube replaced. As the patient has aphasia he cannot provide any history [facility] Medical History Aphasia Apraxia Heart disease Hyperlipemia Hemiplegia Convulsions Encounter for attention to gastrostomy PEG (percutaneous endoscopic gastrostomy) adjustment/replacement/removal Dysphagia Hypertension Sleep apnea Anxiety Peripheral vascular disease Depression Diabetes Stroke/cerebrovascular accident Home Medications ?Medication ?Instructions ?Recorded ?Last Taken ?Type gemfibrozil 600 mg tablet 600 mg G-tube BIDAC CHOLESTEROL 05/11/17 08/26/22 History clopidogrel 75 mg tablet 75 mg G-tube DAILY Blood thinner 08/16/17 08/26/22 History atorvastatin 80 mg tablet 80 mg G-tube QHS Cholesterol 10/07/17 08/25/22 History ezetimibe 10 mg tablet 10 mg GT QHS CHOLESTEROL 01/14/19 08/25/22 History cilostazol 100 mg tablet 100 mg G-tube BID PAD 03/15/20 08/26/22 History insulin glargine 100 unit/mL (3 39 unit subcut QHS DM 03/15/20 08/25/22 History mL) subcutaneous pen (Lantus Solostar U-100 Insulin) insulin lispro 100 unit/mL 20 unit subcut TIDCM DM 03/15/20 08/26/22 History subcutaneous cartridge insulin lispro 100 unit/mL See Protocol subcut TIDCM DM 03/15/20 08/26/22 History subcutaneous cartridge aspirin 81 mg tablet,delayed 81 mg feeding tube DAILY CAD 04/25/21 08/26/22 History release citalopram 10 mg tablet 20 mg feeding tube DAILY DEPRESSION 04/25/21 08/26/22 History losartan 50 mg tablet 50 mg feeding tube DAILY HTN 04/25/21 08/26/22 History gabapentin 300 mg capsule 300 mg feeding tube TID NEUROPATHY 08/26/22 08/26/22 History bisacodyl 10 mg rectal suppository 10 mg IA DAILY PRN constipation 09/24/24 Unknown History levetiracetam 500 mg tablet 500 mg PO QHS 09/24/24 Unknown History levetiracetam 750 mg tablet 750 mg PO DAILY 09/24/24 Unknown History acetaminophen 325 mg capsule 650 mg PO Q4H PRN fever or pain 12/23/24 Unknown History acetaminophen 500 mg capsule 1,000 mg PO Q8H 12/23/24 Unknown History dextrose 40 % oral gel (Glucose 10 g PO Q15M PRN hypoglycemia 12/23/24 Unknown History Gel) glucagon HCl 1 mg solution for 1 mg IM Q20M PRN hypoglycemia 12/23/24 Unknown History injection (Glucagon (HCl) Emergency Kit) hydrocortisone 1 % topical cream 1 applic topical BID PRN rash 12/23/24 Unknown History magnesium hydroxide 400 mg/5 mL 30 ml PO DAILY PRN constipation 12/23/24 Unknown History oral suspension (Milk of Magnesia) mineral oil (Fleet Mineral Oil 118 ml IA DAILY PRN constipation 12/23/24 Unknown History enema) Allergy/AdvReac Type Severity Reaction Status Date / Time No Known Allergies Allergy Verified 12/23/24 00:25 Surgical History Status post abdominal aortic aneurysm repair Social History Smoking Status: Never smoker substance use type: does not use ROS ROS ED Review of Systems ROS Unobtainable: other Details: Unable to obtain review of systems as patient has previous CVA with global aphasia EXAM Physical Exam Const Vital Signs: 12/23/24 00:25 12/23/24 00:25 12/23/24 01:26 Temperature 98.5 F 97.9 F Temperature Source Oral Pulse Rate 66 75 Respiratory Rate 18 16 Respiratory Pattern Normal Blood Pressure 164/75 H 146/79 H Blood Pressure Mean 104 101 Pulse Ox 100 100 Positive well nourished, well developed and obese General Appearance ED: well developed Nutritional Appearance: obese HEENT HEENT Narrative: Normocephalic atraumatic Eyes PERRL and EOMs intact bilaterally General Eye ED: Negative for scleral icterus Neck supple Resp normal respiratory effort and clear to auscultation bilaterally Cardio regular rate and regular rhythm GI non-tender, non-distended and no masses GI Narrative: Abdomen is obese soft nontender and nondistended with normal active bowel sounds. No voluntary guarding or rigidity or pulsatile mass. In the left upper abdomen there is a roughly 1 cm in diameter circular hole consistent with history of PEG tube placement. There is mild bleeding at the site which correlates with the recent PEG tube removal. Auscultation: normoactive bowel sounds Palpation: soft Extremity normal to inspection Extremity Narrative: No bony deformity noted Neuro Neuro Narrative: Patient is at his baseline mental status per usp with chronic right-sided weakness but no new deficit noted Psych Psych Narrative: Patient is at his baseline mental status Skin Skin Narrative: Small amount of bleeding noted at the PEG tube os but otherwise no surrounding secondary soft tissue findings for infection. MDM MDM MDM Narrative Medical decision making narrative: Patient arrived to ER mildly hypertensive but has a past medical history of this. He is at his baseline mental status and somehow inadvertently removed his PEG tube. He does not have signs of secondary infection such as cellulitis or abscess or intestinal perforation. Therefore I felt only need to have the PEG tube replaced as documented below. Confirmation was by gastric contents feeling the PEG tube as well as Gastrografin study showing rugal folds. Therefore at this time as the PEG tube has been replaced the patient is at his baseline mental status there is no signs of false passage or intestinal perforation or secondary infection he is otherwise safe to return to the [facility]. Patient had the PEG tube replaced. The area was cleaned with chlorhexidine over top the PEG tube os. Sterile lidocaine jelly was then placed. Manual pressure was applied and the PEG tube was threaded to 6 cm. The balloon was filled with 20 cc of normal saline. There was return of gastric content within the PEG tube. Patient tolerated procedure well without complication. Radiography Diagnostic Testing: Clinical Impression(s) from Imaging Studies KUB X-Ray 12/23/24 01:10 IMPRESSION: G-tube tip is in the body of the stomach. Reading Location: [place] [id number] KUB with Gastrografin as interpreted by the emergency medicine physician reveals rugal folds consistent with proper PEG tube insertion and no signs of perforation or false passage. Discharge Plan Triage Chief Complaint: Other, Pain/Inj ED Provider: Tarik Noriega Dx/Rx/DC Orders Clinical Impression: PEG (percutaneous endoscopic gastrostomy) adjustment/replacement/removal, Global aphasia, Hypertension, Hyperlipidemia, History of cardioembolic cerebrovascular accident (CVA), Insulin dependent diabetes mellitus Instructions: Understanding PEG Tube Placement Prescriptions: No Action gemfibrozil 600 MG tablet 600 mg G-tube BIDAC clopidogrel 75 MG tablet 75 mg G-tube DAILY Patient Comments: Blood thinner atorvastatin 80 MG tablet 80 mg G-tube QHS Patient Comments: Cholesterol ezetimibe 10 MG tablet 10 mg GT QHS insulin lispro 100 UNIT/ML cartridge 20 unit SC TIDCM insulin glargine [Lantus Solostar U-100 Insulin] 100 UNITS/ML insulin pen 39 unit SC QHS insulin lispro 100 UNIT/ML cartridge See Protocol subcut TIDCM Protocol: 6. Sliding Scale Insulin Custom Condition: mg/dl range Dose/Route: Number of Units Condition: 151-200 Dose/Route: 2 Condition: 201-250 Dose/Route: 4 Condition: 251-300 Dose/Route: 6 Condition: 301-350 Dose/Route: 8 Condition: 351-400 Dose/Route: 10 Condition: 401-600 Dose/Route: 12 Instruction: CALL MD Protocol Text: Custom Sliding Scale cilostazol 100 MG tablet 100 mg G-tube BID losartan 50 mg tablet 50 mg feeding tube DAILY citalopram 10 mg tablet 20 mg feeding tube DAILY aspirin 81 mg Tablet,Delayed Release (Dr/Ec) 81 mg feeding tube DAILY gabapentin 300 mg capsule 300 mg feeding tube TID bisacodyl 10 mg suppository 10 mg IA DAILY PRN (Reason: constipation) levetiracetam 500 mg tablet 500 mg PO QHS levetiracetam 750 mg tablet 750 mg PO DAILY mineral oil [Fleet Mineral Oil] Enema 118 ml IA DAILY PRN (Reason: constipation) Rx Instructions: discard any unused portion glucagon HCl [Glucagon (HCl) Emergency Kit] 1 mg recon soln 1 mg IM Q20M PRN (Reason: hypoglycemia) Rx Instructions: until target blood sugar attained dextrose [Glucose Gel] 40 % gel 10 g PO Q15M PRN (Reason: hypoglycemia) Rx Instructions: until symptoms of low blood sugar are controlled hydrocortisone 1 % cream 1 applic topical BID PRN (Reason: rash) magnesium hydroxide [Milk of Magnesia] 400 mg/5 mL suspension 30 ml PO DAILY PRN (Reason: constipation) acetaminophen 500 mg capsule 1,000 mg PO Q8H acetaminophen 325 mg capsule 650 mg PO Q4H PRN (Reason: fever or pain) Primary Care Provider: Marcin Joseph Referrals: Marcin Joseph MD [Primary Care Provider] - Print Language: Stateless Disposition Disposition: Home, Self Care
--- OUTSIDE RECORDS SUMMARY | 2024-12-23 01:13 | XMS RPT_ITS | CCD ---
Author Organization [facility] CliniSyny Care Team Providers Care Geophysical Prospecting Surveyor Name Role Phone WING KINGSLEY Unavailable Unavailable CHARLENE MUKHERJEE Unavailable Unavailable JAMESON BARBA A Unavailable Unavailable Percy Brenner Unavailable Unavailable AL-ALI, FIRAS Unavailable Unavailable WING KINGSLEY B Unavailable Unavailable CHARLENE MUKHERJEE Unavailable Unavailable JAMESON BARBA A Unavailable Unavailable Dr. Marcin Joseph Primary Care Provider Dr. Marcin Appiah Emergency Provider Dr. Ken Melgoza Attending Provider Dr. Ken Melgoza Admit Provider Dr. Ken Melgoza Other Provider Dr. Catalina Romero Other Provider Dr. Case Singh Attending Provider Dr. Case Singh Other Provider Dr. Catalina Romero Attending Provider Dr. Daniel Barlow Attending Provider Dr. Marcin Joseph Primary Care Provider Dr. Alen Nunez Emergency Provider Dr. Eddy Newman Attending Provider Dr. Marcin Joseph MD Primary Care Provider Dr. Nahid Ortega DO Emergency Provider Shiv Phan Attending Unavailable Marcin Joseph Primary Care Unavailable Nahid Ortega Attending Unavailable Marcin Joseph Primary Care Unavailable Medications Current Medications Medication Drug Class(es) Dates Sig (Normalized) Sig (Original) [id number] 200 actuat albuterol 0.09 mg/actuat metered dose inhaler (5 sources) beta2-Adrenergic Agonist Start: 10-28-2021 take 1 puff(s) by inhalation every two hours Albuterol Sulfate (Ventolin Hfa) 90 mcg/actuation Hfa Aerosol Inhaler Active 1 PUFF INHALATION Q2H October 27, 2021 11:00pm Alum-Mag Hydroxide-Simeth (Tari-Lanta) 200-200-20 mg/5 mL Suspension (1 source) Start: 10-28-2021 Alum-Mag Hydroxide-Simeth (Tari-Lanta) 200-200-20 mg/5 mL Suspension Active 10 ML feeding tube THREE TIMES A DAY October 27, 2021 11:00pm aluminum hydroxide 40 mg/ml / magnesium hydroxide 40 mg/ml / simethicone 4 mg/ml oral suspension (7 sources) Start: 10-28-2021 Alum-Mag Hydroxide-Simeth (Tari-Lanta) 200-200-20 mg/5 mL Suspension Active 10 mL feeding tube THREE TIMES A DAY as needed for BLOATING October 28, 2021 12:00am aspirin 81 mg delayed release oral tablet (16 sources) Platelet Aggregation Inhibitor, Nonsteroidal Anti-inflammatory Drug Start: 04-25-2021 Aspirin 81 mg Tablet,Delayed Release (Dr/Ec) Active 81 mg feeding tube DAILY April 25, 2021 1:00am Start: 01-24-2017 End: 08-16-2017 Aspirin 81 MG Tab.Chew Disco ntinued 162 mg GT DAILY@799January 24, 2017 12:00am August 16, 2017 10:47am Start: 01-24-2017 End: 08-16-2017 Aspirin Discontinued 162 MG GT DAILY@799January 23, 2017 11:00pm August 16, 2017 9:47am atorvastatin 80 mg oral tablet (16 sources) HMG-CoA Reductase Inhibitor Start: 01-24-2017 End: 10-07-2017 Atorvastatin 80 MG tablet Active 80 mg GT AT BEDTIME October 07, 2017 2:03pm Start: 01-24-2017 End: 10-07-2017 Atorvastatin Active 80 MG GT AT BEDTIME October 07, 2017 1:03pm bisacodyl 10 mg rectal suppository (6 sources) Stimulant Laxative Start: 09-24-2024 Bisacodyl 1 0 mg suppository Active 10 mg RC DAILY as needed for constipation September 24, 2024 12:00am Start: 10-28-2021 Bisacodyl Acti ve 10 MG RC DAILY October 27, 2021 11:00pm cephalexin 50 mg/ml oral suspension (3 sources) Cephalosporin Antibacterial Start: 05-07-2022 Cephalexin Active 500 MG GT Q12H 140 7 May 07, 2022 12:00am cilostazol 100 mg oral tablet (8 sources) Phosphodiesterase 3 Inhibitor Start: 03-15-2020 Cilostazol 100 MG tablet Active 100 mg GT TWICE A DAY March 15, 2020 1:00am citalopram 10 mg oral tablet (8 sources) Serotonin Reuptake Inhibitor Start: 04-25-2021 Citalopram 10 mg tablet Active 20 mg feeding tube DAILY April 25, 2021 1:00am Start: 04-25-2021 Citalopram Act enoch 5 MG feeding tube DAILY April 25, 2021 12:00am Start: 04-25-2021 Citalopram Act enoch 10 MG feeding tube DAILY April 25, 2021 1:00am clopidogrel 75 mg oral tablet (8 sources) P2Y12 Platelet Inhibitor Start: 08-16-2017 Clopidogrel 75 MG tablet Active 75 mg GT DAILY August 16, 2017 12:00am ezetimibe 10 mg oral tablet (8 sources) Dietary Cholesterol Absorption Inhibitor Start: 01-14-2019 Ezetimibe 10 MG tablet Active 10 mg GT AT BEDTIME January 14, 2019 12:00am Start: 01-14-2019 Ezetimibe Acti ve 10 MG GT AT BEDTIME January 13, 2019 11:00pm gabapentin 300 mg oral capsule (8 sources) Anti-epileptic Agent Start: 08-26-2022 Gabapenti n 300 mg capsule Active 300 mg feeding tube THREE TIMES A DAY August 26, 2022 12:00am Start: 05-11-2017 Gabapentin (Ne urontin) 250 MG/5 ML solution Active 300 MG GT 3 TIMES DAILY WITH MEALS May 11, 2017 12:00am gemfibrozil 600 mg oral tablet (8 sources) Peroxisome Proliferator Receptor alpha Agonist Start: 05-11-2017 Gemfibrozil 600 MG tablet Active 600 mg GT TWICE DAILY BEFORE MEALS May 11, 2017 1:00am glycerin 2 mg/ml / hypromellose 2 mg/ml / polyethylene glycol 400 10 mg/ml ophthalmic solution (2 sources) Non-Standardized Chemical Allergen Start: 05-08-2022 take 1 drop(s) into the eye(s) every two hours Polyethylene Glycol 400 (Visine Dry Eye Relief) 1 % Drops Active 2 DRP LEFT EYE Q2H May 08, 2022 12:00am guaiFENesin 40 mg/ml oral solution (5 sources) Start: 10-28-2021 take 400 mg by mouth every four hours Guaifenesin Active 400 MG PO Q4H October 27, 2021 11:00pm 3 ml insulin glargine 100 unt/ml pen injector (6 sources) Insulin Analog Start: 03-15-2020 Insulin Glargi ne (Lantus Solostar U-100 Insulin) 100 UNITS/ML insulin pen Active 39 U SC AT BEDTIME March 15, 2020 1:00am Start: 03-15-2020 Insulin Glargi ne (Lantus Solostar U-100 Insulin) 100 UNITS/ML insulin pen Active 25 UNITS SC AT BEDTIME March 15, 2020 12:00am Start: 03-15-2020 Insulin Glargi ne (Lantus Solostar U-100 Insulin) 100 UNITS/ML insulin pen Active 20 UNITS SC AT BEDTIME March 15, 2020 12:00am Insulin Glargine (Lantus Solostar U-100 Insulin) 100 UNITS/ML insulin pen (2 sources) Start: 03-15-2020 Insulin Glargi ne (Lantus Solostar U-100 Insulin) 100 UNITS/ML insulin pen Active 20 UNITS SC AT BEDTIME March 15, 2020 1:00am 3 ml insulin lispro 100 unt/ml cartridge (16 sources) Insulin Analog Start: 03-15-2020 Insulin Lispro 100 UNIT/ML cartridge Active 20 U SC 3 TIMES DAILY WITH MEALS March 15, 2020 1:00am Start: 03-15-2020 Insulin Lispro 100 UNIT/ML cartridge Active 0 U SC 3 TIMES DAILY WITH MEALS March 15, 2020 1:00am Please contact the information source for Protocol details. Start: 03-15-2020 Insulin Lispro Active 15 UNIT SC 3 TIMES DAILY WITH MEALS March 15, 2020 12:00am Start: 03-15-2020 Insulin Lispro Active 0 UNIT SC 3 TIMES DAILY WITH MEALS March 15, 2020 12:00am Start: 03-15-2020 Insulin Lispro Active 12 UNIT SC 3 TIMES DAILY WITH MEALS March 15, 2020 12:00am levETIRAcetam 500 mg oral tablet (18 sources) Start: 09-24-2024 take 1 tablet by mouth at bedtime Levetiracetam 500 mg tablet Active 500 mg PO AT BEDTIME September 24, 2024 12:00am Start: 09-24-2024 take 1 tablet by valorie th once daily Levetiracetam 750 mg tablet Active 750 mg PO DAILY September 24, 2024 12:00am Start: 03-15-2020 End: 07-10-2023 Levetiracetam 500 MG tablet Discontinued 500 mg GT DAILY@1600 March 15, 2020 1:00am July 10, 2023 7:29pm Start: 03-15-2020 End: 07-10-2023 Levetiracetam 750 MG tablet Discontinued 750 mg GT TWICE A DAY March 15, 2020 1:00am July 10, 2023 7:29pm levoFLOXacin 25 mg/ml oral solution (1 source) Quinolone Antimicrobial Start: 05-11-2022 take 750 mg by mouth once daily Levofloxacin Active 750 MG PO DAILY 240 8 May 11, 2022 12:00am loperamide hydrochloride 2 mg oral capsule (5 sources) Opioid Agonist Start: 10-28-2021 take 8 mg by mouth every twenty-four hours Loperamide Active 2 MG PO Q2H October 27, 2021 11:00pm administer after each loose stool until symptoms controlled; do not exceed 8 mg per 24 hrs losartan potassium 50 mg oral tablet (8 sources) Angiotensin 2 Receptor Suleman Start: 04-25-2021 Losartan 50 mg tablet Active 50 mg feeding tube DAILY April 25, 2021 1:00am Magnesium Hydroxide (5 sources) Start: 10-28-2021 take 1 mL by mouth once daily Magnesium Hydroxide (Milk Of Magnesia) 400 mg/5 mL Suspension Active 30 ML PO DAILY October 27, 2021 11:00pm Start: 10-28-2021 take 1 mL by mouth once daily Magnesium Hydroxide (Milk Of Magnesia) 400 mg/5 mL Suspension Active 30 ML PO DAILY October 27, 2021 11:00pm Menthol / Zinc Oxide (3 sources) Start: 08-28-2022 Menthol-Zinc O xide (Calmoseptine) 0.44-20.6 % Ointment Active 1 NMA TOPICAL TWICE A DAY 0 August 28, 2022 12:00am Please contact the information source for Protocol details. Start: 08-28-2022 Menthol-Zinc O xide (Calmoseptine) 0.44-20.6 % Ointment Active 1 APPLIC TOPICAL TWICE A DAY 0 August 27, 2022 11:00pm Start: 08-28-2022 Menthol-Zinc O xide (Calmoseptine) 0.44-20.6 % Ointment Active 1 APPLIC TOPICAL TWICE A DAY 0 August 28, 2022 12:00am sodium phosphate, dibasic 59 .3 mg/ml / sodium phosphate, monobasic 161 mg/ml enema (5 sources) Start: 10-28-2021 Sodium Phospha mark (Enema) 19-7 gram/118 mL Enema Active 118 ML RC DAILY October 27, 2021 11:00pm Completed/Discontinued Medications Medication Drug Class(es) Dates Sig (Normalized) Sig (Original) acetaminophen 32 mg/ml oral suspension (16 sources) Start: 10-28-2021 End: 07-10-2023 take 650 mg by mouth every four hours as needed for pain Acetaminophen 650 mg/20.3 mL Suspension Discontinued 650 mg PO Q4H as needed for PAIN/FEVER October 28, 2021 12:00am July 10, 2023 7:31pm Start: 03-15-2020 End: 07-10-2023 Acetaminophen 500 mg Tablet Discontinued 1000 mg feeding tube Q8H 0 March 15, 2020 1:00am July 10, 2023 7:31pm Start: 03-15-2020 End: 07-10-2023 Acetaminophen Discontinued 1 000 MG feeding tube Q8H 0 March 15, 2020 12:00am July 10, 2023 6:31pm amoxicillin 875 mg / clavulanate 125 mg oral tablet (3 sources) Penicillin-class Antibacterial Start: 08-28-2022 End: 07-10-2023 Amoxicillin-Pot Clavulanate 875-125 mg tablet Discontinued 1 {tbl} PO TWICE A DAY 10 5 August 28, 2022 12:00am July 10, 2023 7:31pm Start: 08-28-2022 End: 07-10-2023 take 1 tablet by mouth twice daily Amoxicillin-Pot Clavulanate Discontinued 1 TABLET PO TWICE A DAY 10 5 August 27, 2022 11:00pm July 10, 2023 6:31pm cefdinir 50 mg/ml oral suspension (8 sources) Cephalosporin Antibacterial Start: 03-17-2020 End: 03-24-2020 Cefdinir 250 MG/5 ML suspension for reconstitution Discontinued 250 mg GT Q12H 70 7 March 17, 2020 1:00am March 23, 2020 1:00am March 24, 2020 1:03am LORazepam 0.5 mg oral tablet (8 sources) Benzodiazepine Start: 08-16-2017 End: 10-08-2017 Lorazepam 0.5 MG tablet Discontinued 0.5 mg GT WITH BREAKFAST August 16, 2017 12:00am October 08, 2017 2:06pm Start: 08-16-2017 End: 10-08-2017 Lorazepam Discontinued 0.5 M G GT WITH BREAKFAST August 15, 2017 11:00pm October 08, 2017 1:06pm Nut.Tx.Gluc.Intol,Lac-Free,S oy (Glucerna 1.5 Juan) 237 ML Liquid (8 sources) Start: 01-24-2017 End: 05-11-2017 Lion.Tx.Gluc.Intol,Lac-Free,S oy (Glucerna 1.5 Juan) 237 ML Liquid Discontinued 60 mL GT Continuous January 24, 2017 12:00am May 11, 2017 10:57pm 60 cc/hr per GT continuously Start: 01-24-2017 End: 05-11-2017 Lion.Tx.Gluc.Intol,Lac-Free,S oy (Glucerna 1.5 Juan) 237 ML Liquid Discontinued 60 ML GT Continuous January 23, 2017 11:00pm May 11, 2017 9:57pm 60 cc/hr per GT continuously Start: 01-24-2017 End: 05-11-2017 Lion.Tx.Gluc.Intol,Lac-Free,S oy (Glucerna 1.5 Juan) 237 ML Liquid Discontinued 60 ML GT Continuous January 24, 2017 12:00am May 11, 2017 10:57pm 60 cc/hr per GT continuously oseltamivir 75 mg oral capsule (6 sources) Neuraminidase Inhibitor Start: 02-19-2023 End: 07-10-2023 take 1 capsule by mouth twice daily Oseltamivir (Tamiflu) 75 mg capsule Discontinued 75 mg PO TWICE A DAY 10 February 19, 2023 12:00am July 10, 2023 7:30pm Start: 05-07-2022 Oseltamivir (T amiflu) 6 mg/mL suspension for reconstitution Active 75 MG feeding tube TWICE A DAY 125 May 07, 2022 12:00am END DATE oxyCODONE hydrochloride 5 mg oral tablet (8 sources) Opioid Agonist Start: 03-15-2020 End: 03-17-2020 take 1 tablet by mouth every six hours as needed for pain Oxycodone 5 MG tablet Discontinued 5 mg PO EVERY 6 HOURS NEEDED as needed for pain March 15, 2020 1:00am March 17, 2020 10:48am sulfamethoxazole 800 mg / trimethoprim 160 mg oral tablet (3 sources) Dihydrofolate Reductase Inhibitor Antibacterial, Sulfonamide Antimicrobial Start: 08-26-2022 End: 08-28-2022 Sulfamethoxazole- Trimethoprim (Bactrim Ds) 800-160 mg Tablet Discontinued 1 {tbl} feeding tube Q12H August 26, 2022 12:00am August 28, 2022 4:04pm Problems Active Problems Problem Classification Problem Date Documented Da te Episodic/Chronic Acute and unspecified renal failure (5 sources) Injury of kidney; Translations: [Acute kidney failure, unspecified] Episodic Acute cerebrovascular disease (1 source) Cerebral infarction, unspecified; Translations: [Cerebral infarction, unspecified] Onset: 06-23-2017 Chronic Bacterial infection; unspecified site (8 sources) Bacteremia caused by Gram-negative bacteria; Translations: [Bacteremia] 05-07-2021 Episodic Diabetes mellitus with complications (8 sources) Type 2 diabetes mellitus in obese; Translations: [Type 2 diabetes mellitus with other specified complication] 10-08-2017 Chronic Disorders of lipid metabolism (8 sources) Hyperlipidemia; Translations: [Hyperlipidemia, unspecified] 04-26-2021 Chronic Essential hypertension (8 sources) Hypertensive disorder; Translations: [Essential (primary) hypertension] 04-26-2021 Chronic Fluid and electrolyte disorders (8 sources) Hypernatremia; Translations: [Hyperosmolality and hypernatremia] 10-08-2017 Episodic Comment on above: due to 3% ssaline in fusion for cerebral edema with midline shift Influenza (20 sources) Influenza due to Influenza A virus; Translations: [Influenza due to other identified influenza virus with other respiratory manifestations] Episodic Late effects of cerebrovascular disease (5 sources) Cerebral infarction; Translations: [Unspecified sequelae of cerebral infarction] Chronic Occlusion or stenosis of precerebral arteries (9 sources) Occlusion and stenosis of bilateral carotid arteries; Translations: [Left carotid artery occlusion] Onset: 06-29-2017 10-08-2017 Chronic Other aftercare (1 source) Encounter for change or removal of nonsurgical wound dressing; Translations: [Encounter for change or removal of nonsurgical wound dressing] Onset: 09-28-2024 Episodic Other and ill-defined heart disease (8 sources) Left ventricular hypertrophy; Translations: [Cardiomegaly] 10-08-2017 Chronic Other and ill-defined heart disease (8 sources) Diastolic dysfunction; Translations: [Other ill-defined heart diseases] 10-08-2017 Chronic Other circulatory disease (3 sources) Cerebral infarction; Translations: [Personal history of transient ischemic attack (TIA), and cerebral infarction without residual deficits] 10-08-2017 Episodic Other gastrointestinal disorders (20 sources) Patient encounter status; Translations: [Encounter for attention to gastrostomy] 10-28-2021 Chronic Other gastrointestinal disorders (2 sources) Encounter for attention to gastrostomy; Translations: [Attention to gastrostomy] Chronic Other gastrointestinal disorders (6 sources) History of placement of gastrostomy tube; Translations: [Gastrostomy status] 10-08-2017 Chronic Comment on above: 01/[address] Duncan Other gastrointestinal disorders (8 sources) Dysphagia; Translations: [Dysphagia, unspecified] 03-15-2020 Episodic Other lower respiratory disease (3 sources) Hypoxia; Translations: [Hypoxemia] 08-26-2022 Episodic Other nervous system disorders (8 sources) Cerebral edema; Translations: [Cerebral edema] 10-08-2017 Chronic Comment on above: with midline shift Other nervous system disorders (8 sources) Dysphasia; Translations: [Dysphasia] 10-08-2017 Episodic Paralysis (1 source) Right hemiparesis; Translations: [Hemiplegia, unspecified affecting right dominant side] 09-24-2024 Chronic Residual codes; unclassified (8 sources) Finding related to sleep; Translations: [Sleep apnea, unspecified] 10-08-2017 Chronic Residual codes; unclassified (8 sources) Altered mental status; Translations: [Altered mental status, unspecified] 08-26-2022 Episodic Respiratory failure; insufficiency; arrest (11 sources) Acute respiratory failure with hypoxia; Translations: [Acute respiratory failure] Onset: 06-23-2017 Episodic Septicemia (except in labor) (11 sources) Sepsis; Translations: [Sepsis, unspecified organism] 05-07-2021 Episodic Superficial injury; contusion (1 source) Contusion of back; Translations: [Contusion of unspecified back wall of thorax, initial encounter] 09-24-2024 Episodic Unclassified (1 source) Unknown / UNK(Unknown) Onset: 06-29-2017 Urinary tract infections (20 sources) Urinary tract infectious disease; Translations: [Urinary tract infection, site not specified] Episodic Past or Other Problems Problem Classification Problem Date Documented Da te Episodic/Chronic Complications of surgical procedures or medical care (5 sources) Malfunction of gastrostomy tube; Translations: [Gastrostomy malfunction] Onset: 01-07-2024 07-10-2023 Episodic Unclassified (1 source) Occlusion and stenosis of bilateral carotid arteries Onset: 06-23-2017 Results Test Name Value Interpretation Reference Range Facility Chest without Contraston Chest without Contrast [facility] [address] [place], [place] [address] Chest without Contrast MR#: [id number] Acct: [id number] Name: LOC MCDOWELL Rep #: [id number] : 1950 M 74 From: Ward Ortega MD PCP: Dr. Marcin Joseph MD Status: REG ER Study: Chest without Contrast Date of Exam: 09/24/24 Exam# [id number] Ordering Dr: Nahid Ortega DO EXAM: CT Chest Without Intravenous Contrast CLINICAL INDICATION: RIGHT POST THORACIC INJURY TECHNIQUE: Axial computed tomography images of the chest without intravenous contrast. This CT exam was performed using one or more of the following dose reduction techniques: automated exposure control, adjustment of the mA and/or kV according to patient size, and/or use of iterative reconstruction technique. COMPARISON: No relevant prior studies available. FINDINGS: LUNGS AND PLEURAL SPACES: Lung emphysema/COPD. No consolidation. No pneumothorax. No significant effusion. HEART: Unremarkable. No cardiomegaly. No significant pericardial effusion. No significant coronary artery calcifications. MEDIASTINUM: A few prominent mediastinal lymph nodes measuring up to 6 mm. Small esophageal hiatal hernia. BONES/JOINTS: Cortical irregularity of the left 10th, 9th and 8th ribs could be nondisplaced fractures. Clinical correlation is recommended. No dislocation. SOFT TISSUES: Unremarkable. VASCULATURE: Scattered calcified atherosclerotic disease of aorta. No thoracic aortic aneurysm. LYMPH NODES: See above. CT/Chest without Contrast IMPRESSION: 1. Cortical irregularity of the left 10th, 9th and 8th ribs could be nondisplaced fractures. Clinical correlation is recommended. 2. Small esophageal hiatal hernia. 3. Lung emphysema/COPD. Reading Location: [facility] CC: Dr. Marcin Joseph MD; Dr. Nahid Ortega DO Nut Sheller Machine Operator: Signed Normal [facility] Emergency Department Summary on 09-24-2024 Emergency Department Summary [facility] Medical Records Department [address] [place] [id number] Emergency Department Summary 09/24/24 MR#: [id number] Acct: [id number] Name: LOC MCDOWELL Rep #: [id number] : 1950 74 From: Nahid Fitch PCP: Dr. Marcin Joseph MD Status:DEP ER Location: ED HPI History of Present Illness Chief Complaint: Wound Informant: other Narrative Narrative: Sent in from facility for evaluation bruise noted posterior shoulder/back. History of stroke right side paralysis dysphagia patient unable to tell me much. Records note he is on aspirin and Plavix he is DNR CCA. From nursing notes, he may have been laying on the call light for unknown amount of time. [facility] Medical History Aphasia Apraxia Heart disease Hyperlipemia Hemiplegia Convulsions Encounter for attention to gastrostomy PEG (percutaneous endoscopic gastrostomy) adjustment/replacement/remova l Dysphagia Hypertension Sleep apnea Anxiety Peripheral vascular disease Depression Diabetes Stroke/cerebrovascular accident Home Medications ???Medication ???Instructions ???Recorded ???Last Taken ???Type gemfibrozil 600 mg tablet 600 mg G-tube BIDAC CHOLESTEROL 08/26/22 History clopidogrel 75 mg tablet 75 mg G-tube DAILY Blood thinner 0 08/16/17 08/26/22 History atorvastatin 80 mg tablet 80 mg G-tube QHS Cholesterol 10/0708/25/22 History ezetimibe 10 mg tablet 10 mg GT QHS CHOLESTEROL 01/14/19 08/25/22 History cilostazol 100 mg tablet 100 mg G-tube BID PAD 03/15/20 History insulin glargine 100 unit/mL (3 39 unit subcut QHS DM 03/15/20 History mL) subcutaneous pen (Lantus Solostar U-100 Insulin) insulin lispro 100 unit/mL 20 unit subcut TIDCM DM 03/15/20 0 08/26/22 History subcutaneous cartridge insulin lispro 100 unit/mL See Protocol SC TIDCM DM 03/15/20 08/26/22 History subcutaneous cartridge aspirin 81 mg tablet,delayed 81 mg feeding tube DAILY CAD 04/2508/26/22 History release citalopram 10 mg tablet 20 mg feeding tube DAILY DEPRESSIO N 04/25/21 08/26/22 History losartan 50 mg tablet 50 mg feeding tube DAILY HTN 04/2508/26/22 History aluminum-mag hydroxide-simethicone 10 ml feeding tube TID PRN BLOAT ING 10/28/21 08/25/22 History 200 mg-200 mg-20 mg/5 mL oral susp (Tari-Lanta) gabapentin 300 mg capsule 300 mg feeding tube TID NEUROPATHY 08/26/22 08/26/22 History menthol 0.44 %-zinc oxide 20.6 % 1 applic topical BID #0 grams 08/10 Unknown Rx topical ointment (Calmoseptine) bisacodyl 10 mg rectal suppository 10 mg AR DAILY PRN constipation 09/24/24 Unknown History levetiracetam 500 mg tablet 500 mg PO QHS 09/24/24 Unknown His tory levetiracetam 750 mg tablet 750 mg PO DAILY 09/24/24 Unknown H istory Allergy/AdvReac Type Severity Reaction Status Date / Time No Known Allergies Allergy Verified 12/29/23 01:23 Surgical History Status post abdominal aortic aneurysm repair Social History Smoking Status: Never smoker substance use type: does not use ROS ROS ED Review of Systems ROS Unobtainable: other Details: Aphasia Integumentary Reports other Details: Bruise EXAM Physical Exam Const Vital Signs: 09/24/24 09:52 09/24/24 11:00 09/24/24 11:46 Temperature 97.9 F 98 F Temperature Source Oral Pulse Rate 81 87 Respiratory Rate 15 18 Blood Pressure 118/54 L 117/73 Blood Pressure Mean 75 87 Pulse Ox 95 95 95 Oxygen Delivery Method Nasal Cannula Nasal Cannula Oxygen Flow Rate (L/min) 2 2 09/24/24 11:51 09/24/24 13:22 Temperature Temperature Source Pulse Rate 82 72 Respiratory Rate 16 17 Blood Pressure 118/78 142/66 H Blood Pressure Mean 91 91 Pulse Ox 98 95 Oxygen Delivery Method Room Air Oxygen Flow Rate (L/min) Positive well nourished Constitutional Narrative: Nontoxic aphasic on chronic nasal cannula 2 L. HEENT normocephalic and atraumatic Eyes General Eye ED: Yes normal appearance of both eyes Neck full ROM Resp normal respiratory effort and normal air movement Cardio regular rate and regular rhythm GI soft to palpation Back/Spine Back/Spine Narrative: Back: Noted ecchymosis linear palm size right posterior thoracic lateral to the scapula. Mild tenderness to palpation. Gait is intact. Neuro Neuro Narrative: Dysphagia, he has right side residual paralysis from previous stroke Skin Skin Narrative: See above MDM MDM MDM Narrative Medical decision making narrative: Interventions / MDM: Differential diagnosis: Contusion, history of CVA with right hemiplegia Diagnosis c (more content not included)... Normal [facility] Emergency Department Summary on 12-29-2023 Emergency Department Summary [facility] Medical Records Department [address] [place] [address] Emergency Department Summary 12/29/23 MR#: [id number] Acct: [id number] Name: LOC MCDOWELL Rep #: [id number] : 1950 73 From: Shiv Phan DO PCP: Dr. Marcin Joseph MD Status:REG ER Location: ED HPI History of Present Illness Chief Complaint: Other, Pain/Inj Narrative Narrative: Patient is a 73-year-old male with past medical history of aphasia, hyperlipidemia, hemiplegia, PEG tube, dysphagia, hypertension, NIMO, diabetes, CVA who presented to the emergency department with a chief complaint of PEG tube removal. According to the staff at his nursing facility they noted that his PEG tube has been out roughly about an hour and they attempted to replace this there and were unsuccessful prompting them to send him here for the evaluation management. They note that his PEG tube has been in place for a significant amount of time. [facility] Medical History Aphasia Apraxia Heart disease Hyperlipemia Hemiplegia Convulsions Encounter for attention to gastrostomy PEG (percutaneous endoscopic gastrostomy) adjustment/replacement/remova l Dysphagia Hypertension Sleep apnea Anxiety Peripheral vascular disease Depression Diabetes Stroke/cerebrovascular accident Home Medications ???Medication ???Instructions ???Recorded ???Last Taken ???Type gemfibrozil 600 mg tablet 600 mg G-tube BIDAC CHOLESTEROL 05/11/17 08/26/22 History clopidogrel 75 mg tablet 75 mg G-tube DAILY Blood thinner 08/16/17 08/26/22 History atorvastatin 80 mg tablet 80 mg G-tube QHS Cholesterol 10/07/17 08/25/22 History ezetimibe 10 mg tablet 10 mg GT QHS CHOLESTEROL 01/14/19 08/25/22 History cilostazol 100 mg tablet 100 mg GT BID PAD 03/15/20 08/26/22 History insulin glargine 100 unit/mL (3 25 units subcut QHS DM 03/15/20 08/25/22 History mL) subcutaneous pen (Lantus Solostar U-100 Insulin) insulin lispro 100 unit/mL 15 unit subcut TIDCM DM 03/15/20 08/26/22 History subcutaneous cartridge insulin lispro 100 unit/mL See Protocol SC TIDCM DM 03/15/20 08/26/22 History subcutaneous cartridge aspirin 81 mg tablet,delayed 81 mg feeding tube DAILY CAD 04/25/21 08/26/22 History release citalopram 10 mg tablet 5 mg feeding tube DAILY DEPRESSION 04/25/21 08/26/22 History losartan 50 mg tablet 50 mg feeding tube DAILY HTN 04/25/21 08/26/22 History aluminum-mag hydroxide-simethicone 10 ml feeding tube TID PRN BLOATING 10/28/21 08/25/22 History 200 mg-200 mg-20 mg/5 mL oral susp (Tari-Lanta) gabapentin 300 mg capsule 300 mg feeding tube TID NEUROPATHY 08/26/22 08/26/22 History menthol 0.44 %-zinc oxide 20.6 % 1 applic topical BID #0 grams 08/28/22 Unknown Rx topical ointment (Calmoseptine) Allergy/AdvReac Type Severity Reaction Status Date / Time No Known Allergies Allergy Verified 12/29/23 01:23 Surgical History Status post abdominal aortic aneurysm repair Social History Smoking Status: Never smoker substance use type: does not use ROS ROS ED ROS Narrative Patient is aphasic therefore review of systems is unobtainable therefore acute care caveat applies EXAM Physical Exam Narrative Exam Narrative: General: Patient was lying in bed rest comfortably did not appear to be in acute distress Head: Atraumatic, normocephalic Eyes: PERRL bilaterally, EOMI bilaterally Cardiovascular: Regular rate and rhythm Respiratory: Clear to auscultation bilaterally Abdomen: No tenderness palpation, G-tube is out of the chronic G-tube site some blood was noted on the dressing that is applied over the whole Neurological: Patient is at his baseline according to his nursing staff at the nursing facility as well as here and EMS Skin: Once again the G-tube site has some old blood noted on it with no G-tube in place. No concern for infection no surrounding erythema or purulent drainage noted Const Vital Signs: 12/29/23 01:22 Temperature 98.7 F Temperature Source Temporal Pulse Rate 64 Respiratory Rate 18 Blood Pressure 144/67 H Blood Pressure Mean 92 Pulse Ox 94 Oxygen Delivery Method Room Air MDM MDM MDM Narrative Medical decision making narrative: Patient is a 73-year-old male who presented to the emergency department chief complaint of G-tube being pulled out approximately 1 hour ago. Did confirm with facility and they note this was a 20 [place] G-tube that was previously placed and I reviewed old records which confirmed this as well. Patient will have G-tube replaced here in the emergency department. Gastric tube was replaced here in the emergency department. Patient tolerated (more content not included)... Normal [facility] Absolute lymphocyte countOrd ered By: Alen Nunez on 02-19-2023 Lymphocytes Auto (Unsp spec) [#/Vol] 1.05 10*3/uL 0.83-4.51 [facility] Basophil percentageOrdered B y: Alen Nunez on 02-19-2023 Basophil percentage 0 SEEN /hpf 0-5 [facility] Basophils/100 WBC (Bld) 0.8 % 0-1 [facility] Bilirubin [Mass/Vol] 0.40 mg/dL 0.20-1.00 [facility] Comment on above: For patients on eltr ombopag therapy, use of Dimension [place] TBIL is not recommended. Chloride [Moles/Vol] 105 mmol/L 98-107 [facility] Eosinophils/100 WBC (Bld) 5.1 % 0-5 [facility] Glucose [Mass/Vol] 262 mg/dL 74-106 [facility] Comment on above: Glucose result great er than or equal to 200 mg/dLsuggests DIABETES MELLITUS per A.D.A. criteria. Lactate [Moles/Vol] 1.5 mmol/L 0.4-2.0 [facility] Neutrophils (Bld) [#/Vol] 3.7 10*3/uL 2.0-7.7 [facility] Neutrophils/100 WBC (Bld) 61.5 % 47-70 [facility] Potassium [Moles/Vol] 3.7 mmol/L 3.5-5.1 [facility] Protein [Mass/Vol] 6.9 g/dL 6.4-8.2 [facility] Sodium [Moles/Vol] 137 mmol/L 136-145 [facility] WBC (Bld) [#/Vol] 6.0 10*3/uL 4.4-11.0 [facility] Bilirubin Test strip Ql (U)O rdered By: Alen Nunez on 02-19-2023 Bilirubin Ql (U) Negative Negative [facility] Blood erythrocytes count (nu mber/volume)Ordered By: Alen Nunez on 02-19-2023 RBC (Bld) [#/Vol] 4.50 10*6/uL 4.6-6.2 [facility] Blood hemoglobin measurement (mass/volume)Ordered By: Alen Nunez on 02-19-2023 Hemoglobin (Bld) [Mass/Vol] 13.6 g/dL 13.0-16.5 [facility] Blood lymphocytes/100 leukoc ytesOrdered By: Alen Nunez on 02-19-2023 Lymphocytes/100 WBC (Bld) 17.4 % 19-41 [facility] Blood monocytes/100 leukocyt esOrdered By: Alen Nunez on 02-19-2023 Monocytes/100 WBC (Bld) 15.0 % 0-10 [facility] Blood platelet mean volumeOr dered By: Alen Nunez on 02-19-2023 Platelet mean volume (Bld) [Entitic vol] 9.0 fL 6.2-12.0 [facility] Determination of erythrocyte mean corpuscular volume (MCV)Ordered By: Alen Nunez on 02-19-2023 MCV (RBC) [Entitic vol] 93.8 fL 80-94 [facility] Hematocrit Auto (Bld) [Volum e fraction]Ordered By: Alen Nunez on 02-19-2023 Hematocrit (Bld) [Volume fraction] 42.2 % 40-54 [facility] INR in Blood by Coagulation assayOrdered By: Alen Nunez on 02-19-2023 INR Coag (Bld) [Relative time] 1.0 {INR} [facility] Influenza virus A and B and SARS-CoV-2 (COVID-19) Ag panel - Upper respiratory specimOrdered By: Alen Nunez on 02-19-2023 SARS-CoV-2 & FLU Antigen (Rapid) Influenzae B [facility] Ketones Test strip Ql (U)Ord ered By: Alen Nunez on 02-19-2023 Ketones Ql (U) Negative Negative [facility] Laboratory - Chemistry and C hemistry - challengeOrdered By: Alen Nunez on 02-19-2023 ALP [Catalytic activity/Vol] 87 U/L 45-117 [facility] ALT [Catalytic activity/Vol] 27 U/L 16-61 [facility] CO2 [Moles/Vol] 27.0 mmol/L 21.0-32.0 [facility] Globulin (S) [Mass/Vol] 3.7 g/dL 2.2-4.2 [facility] Urea nitrogen/Creatinine [Mass ratio] 22.6 mg/mg 10-20 [facility] Laboratory - CoagulationOrde red By: Alen Nunez on 02-19-2023 aPTT Coag (Bld) [Time] 24.8 s 24.1-36.2 [facility] PT Coag (PPP) [Time] 13.2 s 11.7-14.9 [facility] Laboratory - Hematology and Cell countsOrdered By: Alen Nunez on 02-19-2023 Erythrocyte distribution width (RBC) [Entitic vol] 46.9 fL 35.1-43.9 [facility] Erythrocyte distribution width (RBC) [Ratio] 13.6 % 11.6-14.6 [facility] Immature granulocytes/100 WBC (Bld) 0.200 % 0.0-0.9 [facility] Comment on above: IG% - Immature Granu locytes (promyelocytes, myelocytes and metamyelocytes) > 1% indicates that a LEFT SHIFT is Present. MCH (RBC) [Entitic mass] 30.2 pg 27.0-32.0 [facility] Nucleated RBC/100 WBC (Bld) [Ratio] 0 % 0-5 [facility] MCHC Auto (RBC) [Mass/Vol]Or dered By: Alen Nunez on 02-19-2023 MCHC (RBC) [Mass/Vol] 32.2 g/dL 32-36 [facility] Mucus LM Ql (Urine sed)Order ed By: Alen Nunez on 02-19-2023 Mucus Ql (Urine sed) 0 SEEN /hpf [facility] Nitrite Test strip Ql (U)Ord ered By: Alen Nunez on 02-19-2023 Nitrite Ql (U) Negative Negative [facility] No Panel InformationOrdered By: Alen Nunez on 02-19-2023 Estimated Creatinine Clearance Calc 48.54 ml/min [facility] Estimated GFR (MDRD) Amer 66 mL/min >60 [facility] Comment on above: GFR Calc Estimated GFR (MDRD) Non-Af Amer 55 mL/min >60 [facility] Comment on above: Non- GFR Calc Troponin I High Sensitivity 16 pg/mL 3.0-78.0 [facility] Comment on above: Please Note: New Mark t Units and Gender Specific Reference Ranges. For more information see Policy Stat Procedure [place] High Sensitivity Troponin (TNIH) and attachments. Platelets bldOrdered By: Devin Nunez on 02-19-2023 Platelets (Bld) [#/Vol] 180 10*3/uL 150-450 [facility] Protein Test strip Ql (U)Ord ered By: Alen Nunez on 02-19-2023 Protein Ql (U) 15 mg/dl Negative [facility] Serum or plasma albumin jenelle urement (mass/volume)Ordered By: Alen Nunez on 02-19-2023 Albumin [Mass/Vol] 3.2 g/dL 3.2-5.0 [facility] Serum or plasma albumin/glob ulin mass ratioOrdered By: Alen Nunez on 02-19-2023 Albumin/Globulin [Mass ratio] 0.9 {ratio} 0.9-2.4 [facility] Serum or plasma calcium jenelle urement (mass/volume)Ordered By: Alen Nunez on 02-19-2023 Calcium [Mass/Vol] 8.3 mg/dL 8.5-10.1 [facility] Serum or plasma creatinine m easurement (mass/volume)Ordered By: Alen Nunez on 02-19-2023 Creatinine [Mass/Vol] 1.37 mg/dL 0.70-1.30 [facility] Comment on above: The validity of the calculated GFR & GFRAA in patients over 70 years has not been determined. Clinical correlation is essential. Serum or plasma urea nitroge n measurement (mass/volume)Ordered By: Alen Nunez on 02-19-2023 Urea nitrogen [Mass/Vol] 31 mg/dL 7-18 [facility] Squamous epithelial cells de tection in urine sediment by light microscopyOrdered By: Alen Nunez on 02-19-2023 Epithelial cells.squamous LM Ql (Urine sed) 0-5 SEEN /hpf 0-5 [facility] Thin prep Papanicolaou smear with manual screeningOrdered By: Alen Nunez on 02-19-2023 Thin prep Papanicolaou smear with manual screening 13 U/L 15-37 [facility] Thin prep Papanicolaou smear with manual screening 5 5-15 [facility] Urine blood detectionOrdered By: Alen Nunez on 02-19-2023 RBC Ql (U) Negative Negative [facility] RBC Ql (U) 0 SEEN /hpf 0-5 [facility] Urine clarityOrdered By: Devin Nunez on 02-19-2023 Clarity (U) Clear Clear [facility] Urine color determinationOrd ered By: Alen Nunez on 02-19-2023 Color (U) Yellow Yellow [facility] Urine glucose detectionOrder ed By: Alen Nunez on 02-19-2023 Glucose Ql (U) 250 mg/dl Normal [facility] Urine leukocyte esterase det ection by dipstickOrdered By: Alen Nunez on 02-19-2023 Leukocyte esterase Test strip Ql (U) Negative Negative [facility] Urine pHOrdered By: Alen calles on 02-19-2023 pH (U) 5.0 [pH] 5.0 - 8.0 [facility] Urine sediment bacteria coun t by microscopy (number/high power field)Ordered By: Alen Nunez on 02-19-2023 Bacteria LM.HPF (Urine sed) [#/Area] 0 /[HPF] None Seen [facility] Urine specific gravity measu rementOrdered By: Alen Nunez on 02-19-2023 Specific gravity (U) [Rel density] 1.025 1.002-1.03 0 [facility] Urobilinogen Auto test strip Ql (U)Ordered By: Alen Nunez on 02-19-2023 Urobilinogen Ql (U) Normal mg/dl Normal [facility] Absolute lymphocyte counton 05-11-2022 Lymphocytes Auto (Unsp spec) [#/Vol] 1.27 10*3/uL 0.83-4.51 [facility] Work Phone: Basophil percentageon 2022 Basophils/100 WBC (Bld) 0.1 % 0-1 [facility] Work Phone: Chloride [Moles/Vol] 110 mmol/L 98-107 [facility] Work Phone: Eosinophils/100 WBC (Bld) 0.1 % 0-5 [facility] Work Phone: Glucose [Mass/Vol] 288 mg/dL 74-106 [facility] Work Phone: Comment on above: Glucose result great er than or equal to 200 mg/dLsuggests DIABETES MELLITUS per A.D.A. criteria. Neutrophils (Bld) [#/Vol] 5.3 10*3/uL 2.0-7.7 [facility] Work Phone: Neutrophils/100 WBC (Bld) 72.1 % 47-70 [facility] Work Phone: Potassium [Moles/Vol] 3.9 mmol/L 3.5-5.1 [facility] Work Phone: Sodium [Moles/Vol] 144 mmol/L 136-145 [facility] Work Phone: WBC (Bld) [#/Vol] 7.3 10*3/uL 4.4-11.0 [facility] Work Phone: Blood erythrocytes count (nu mber/volume)on 05-11-2022 RBC (Bld) [#/Vol] 3.83 10*6/uL 4.6-6.2 [facility] Work Phone: Blood hemoglobin measurement (mass/volume)on 05-11-2022 Hemoglobin (Bld) [Mass/Vol] 11.6 g/dL 13.0-16.5 [facility] Work Phone: Blood lymphocytes/100 leukoc yteson 05-11-2022 Lymphocytes/100 WBC (Bld) 17.4 % 19-41 [facility] Work Phone: Blood monocytes/100 leukocyt eson 05-11-2022 Monocytes/100 WBC (Bld) 9.9 % 0-10 [facility] Work Phone: Blood platelet mean volumeon 05-11-2022 Platelet mean volume (Bld) [Entitic vol] 9.1 fL 6.2-12.0 [facility] Work Phone: Determination of erythrocyte mean corpuscular volume (MCV)on 05-11-2022 MCV (RBC) [Entitic vol] 95.0 fL 80-94 [facility] Work Phone: Glucose Glucometer (BldC) [M ass/Vol]on 05-11-2022 Glucose [Mass/Vol] 244 mg/dL 74-106 [facility] Work Phone: Comment on above: MANAGEMENT OF PATIEN T CARE PER NURSING PROTOCOL Hematocrit Auto (Bld) [Volum e fraction]on 05-11-2022 Hematocrit (Bld) [Volume fraction] 36.4 % 40-54 [facility] Work Phone: Laboratory - Chemistry and C hemistry - challengeon 05-11-2022 CO2 [Moles/Vol] 30.0 mmol/L 21.0-32.0 [facility] Work Phone: Urea nitrogen/Creatinine [Mass ratio] 26.8 mg/mg 10-20 [facility] Work Phone: Laboratory - Hematology and Cell countson 05-11-2022 Erythrocyte distribution width (RBC) [Entitic vol] 49.4 fL 35.1-43.9 [facility] Work Phone: Erythrocyte distribution width (RBC) [Ratio] 14.1 % 11.6-14.6 [facility] Work Phone: Immature granulocytes/100 WBC (Bld) 0.400 % 0.0-0.9 [facility] Work Phone: Comment on above: IG% - Immature Granu locytes (promyelocytes, myelocytes and metamyelocytes) > 1% indicates that a LEFT SHIFT is Present. MCH (RBC) [Entitic mass] 30.3 pg 27.0-32.0 [facility] Work Phone: Nucleated RBC/100 WBC (Bld) [Ratio] 0 % 0-5 [facility] Work Phone: MCHC Auto (RBC) [Mass/Vol]on 05-11-2022 MCHC (RBC) [Mass/Vol] 31.9 g/dL 32-36 [facility] Work Phone: No Panel Informationon 05-11 Estimated Creatinine Clearance Calc 48.88 ml/min [facility] Work Phone: Estimated GFR (MDRD) Amer 66 mL/min >60 [facility] Work Phone: Comment on above: GFR Calc Estimated GFR (MDRD) Non-Af Amer 54 mL/min >60 [facility] Work Phone: Comment on above: Non- GFR Calc Platelets bldon 05-11-2022 Platelets (Bld) [#/Vol] 173 10*3/uL 150-450 [facility] Work Phone: Serum or plasma calcium jenelle urement (mass/volume)on 05-11-2022 Calcium [Mass/Vol] 8.1 mg/dL 8.5-10.1 [facility] Work Phone: Serum or plasma creatinine m easurement (mass/volume)on 05-11-2022 Creatinine [Mass/Vol] 1.38 mg/dL 0.70-1.30 [facility] Work Phone: Comment on above: The validity of the calculated GFR & GFRAA in patients over 70 years has not been determined. Clinical correlation is essential. Serum or plasma urea nitroge n measurement (mass/volume)on 05-11-2022 Urea nitrogen [Mass/Vol] 37 mg/dL 7-18 [facility] Work Phone: Thin prep Papanicolaou smear with manual screeningon 05-11-2022 Thin prep Papanicolaou smear with manual screening 4 5-15 [facility] Work Phone: Basophil percentageon 2021 Basophil percentage 1.9 mg/dL 2.5-4.9 [facility] Work Phone: Bilirubin [Mass/Vol] 0.40 mg/dL 0.20-1.00 [facility] Work Phone: Comment on above: For patients on eltr ombopag therapy, use of Dimension [place] TBIL is not recommended. Protein [Mass/Vol] 6.3 g/dL 6.4-8.2 [facility] Work Phone: Laboratory - Chemistry and C hemistry - challengeon 05-10-2022 ALP [Catalytic activity/Vol] 64 U/L 45-117 [facility] Work Phone: ALT [Catalytic activity/Vol] 22 U/L 16-61 [facility] Work Phone: Globulin (S) [Mass/Vol] 3.8 g/dL 2.2-4.2 [facility] Work Phone: Magnesium [Mass/Vol] 3.1 mg/dL 1.6-2.6 [facility] Work Phone: No Panel Informationon 05-10 Thyroid Stimulating Hormone (TSH) 0.26 uIU/mL 0.358-3.74 [facility] Work Phone: Serum or plasma albumin jenelle urement (mass/volume)on 05-10-2022 Albumin [Mass/Vol] 2.5 g/dL 3.2-5.0 [facility] Work Phone: Serum or plasma albumin/glob ulin mass ratioon 05-10-2022 Albumin/Globulin [Mass ratio] 0.7 {ratio} 0.9-2.4 [facility] Work Phone: Thin prep Papanicolaou smear with manual screeningon 05-10-2022 Thin prep Papanicolaou smear with manual screening 22 U/L 15-37 [facility] Work Phone: Vancomycin troughon 05-10-20 Vancomycin trough [Mass/Vol] 28.8 ug/mL 5.0-15.0 [facility] Work Phone: Comment on above: VANCOMYCIN STANDARED DRUG THERAPY TROUGH LEVEL: 5.0 - 15.0 mg/L VANCOMYCIN HIGH INTENSITY THERAPY TROUGH LEVEL: 15.0 - 20.0 mg/L High Intensity therapy recommended for serious lifethreatening infections include:- Xgitdqauzd-Ggmtmjlufxhr-Sitvwxafa (Ventilator/Healtcare Associated)-Sepsis PLEASE CONTACT PHARMACY SERVICES (#[id number]) FOR INTERPRETATIONOF RESULTS. Whole blood hemoglobin A1c/t otal hemoglobin ratio (mass fraction)on 05-10-2022 HbA1c (Bld) [Mass fraction] 8.6 % 3.8-5.6 [facility] Work Phone: Comment on above: Normal < 5.7 % Predi abetic 5.7 - 6.4 % Diabetic >or= 6.5 % Please note range changes. Serum procalcitonin measurem enton 05-09-2022 Procalcitonin [Mass/Vol] 0.76 ng/mL 0.00-0.09 [facility] Work Phone: Comment on above: A procalcitonin (PCT ) level above 2.0 ng/mL on the first day of ICU admission is associated with a high risk for progression to severe sepsis and/or septic shock. A PCT level below 0.5 ng/mL on the first day of ICU admission is associated with a low risk for progression to severe and/or septic shock. Note: Concentrations <0.5 ng/mL do not exclude an infection on account of localized infections (without systemic signs) which can be associated with such low concentrations, or a systemic infection in its initial stages (<6 hours). Furthermore, increased procalcitonin can occur without infection. PCT concentrations between 0.5 and 2.0 ng/mL should be interpreted taking into account the patient's history. It is recommended to retest PCT within 6-24 hours if any concentrations <2 ng/mL are obtained. Absolute lymphocyte counton 05-08-2022 Lymphocytes Auto (Unsp spec) [#/Vol] 1.25 10*3/uL 0.83-4.51 [facility] Work Phone: Base excesson 05-08-2022 Base excess Calc (BldV) [Moles/Vol] 1 mmol/L -2-2 [facility] Work Phone: Basophil percentageon 2021 Basophil percentage 27.0 mmol/L 22-26 [facility] Work Phone: Basophils/100 WBC (Bld) 98 % 95-99 [facility] Work Phone: Basophils/100 WBC (Bld) 0.5 % 0-1 [facility] Work Phone: Bilirubin [Mass/Vol] 0.40 mg/dL 0.20-1.00 [facility] Work Phone: [phone] Comment on above: For patients on eltr ombopag therapy, use of Dimension [place] TBIL is not recommended. Chloride [Moles/Vol] 102 mmol/L 98-107 [facility] Work Phone: Eosinophils/100 WBC (Bld) 0.0 % 0-5 [facility] Work Phone: Glucose [Mass/Vol] 230 mg/dL 74-106 [facility] Work Phone: [phone] Comment on above: Glucose result great er than or equal to 200 mg/dLsuggests DIABETES MELLITUS per A.D.A. criteria. Lactate [Moles/Vol] 1.8 mmol/L 0.4-2.0 [facility] Work Phone: Neutrophils (Bld) [#/Vol] 6.1 10*3/uL 2.0-7.7 [facility] Work Phone: Neutrophils/100 WBC (Bld) 76.2 % 47-70 [facility] Work Phone: Potassium [Moles/Vol] 3.3 mmol/L 3.5-5.1 [facility] Work Phone: [phone] Protein [Mass/Vol] 7.0 g/dL 6.4-8.2 [facility] Work Phone: [phone] Sodium [Moles/Vol] 136 mmol/L 136-145 [facility] Work Phone: WBC (Bld) [#/Vol] 8.0 10*3/uL 4.4-11.0 [facility] Work Phone: Blood erythrocytes count (nu mber/volume)on 05-08-2022 RBC (Bld) [#/Vol] 4.28 10*6/uL 4.6-6.2 [facility] Work Phone: [phone] Blood hemoglobin measurement (mass/volume)on 05-08-2022 Hemoglobin (Bld) [Mass/Vol] 13.3 g/dL 13.0-16.5 [facility] Work Phone: Blood lymphocytes/100 leukoc yteson 05-08-2022 Lymphocytes/100 WBC (Bld) 15.6 % 19-41 [facility] Work Phone: Blood monocytes/100 leukocyt eson 05-08-2022 Monocytes/100 WBC (Bld) 7.3 % 0-10 [facility] Work Phone: Blood platelet mean volumeon 05-08-2022 Platelet mean volume (Bld) [Entitic vol] 9.2 fL 6.2-12.0 [facility] Work Phone: CO2 (BldA) [Partial pressure ]on 05-08-2022 CO2 (Bld) [Partial pressure] 49.2 mm[Hg] 35-45 [facility] Work Phone: Determination of erythrocyte mean corpuscular volume (MCV)on 05-08-2022 MCV (RBC) [Entitic vol] 94.6 fL 80-94 [facility] Work Phone: Hematocrit Auto (Bld) [Volum e fraction]on 05-08-2022 Hematocrit (Bld) [Volume fraction] 40.5 % 40-54 [facility] Work Phone: INR in Blood by Coagulation assayon 05-08-2022 INR Coag (Bld) [Relative time] 1.1 {INR} [facility] Work Phone: Laboratory - Chemistry and C hemistry - challengeon 05-08-2022 ALP [Catalytic activity/Vol] 73 U/L 45-117 [facility] Work Phone: ALT [Catalytic activity/Vol] 29 U/L 16-61 [facility] Work Phone: CO2 [Moles/Vol] 28.0 mmol/L 21.0-32.0 [facility] Work Phone: Globulin (S) [Mass/Vol] 3.9 g/dL 2.2-4.2 [facility] Work Phone: Natriuretic peptide B (Bld) [Mass/Vol] 55.0 pg/mL 0-100 [facility] Work Phone: [phone] Urea nitrogen/Creatinine [Mass ratio] 15.1 mg/mg 10-20 [facility] Work Phone: [phone] Laboratory - Coagulationon 1 PT Coag (PPP) [Time] 13.9 s 11.7-14.9 [facility] Work Phone: [phone] Laboratory - Hematology and Cell countson 05-08-2022 Erythrocyte distribution width (RBC) [Entitic vol] 50.4 fL 35.1-43.9 [facility] Work Phone: [phone] Erythrocyte distribution width (RBC) [Ratio] 14.5 % 11.6-14.6 [facility] Work Phone: [phone] Immature granulocytes/100 WBC (Bld) 0.400 % 0.0-0.9 [facility] Work Phone: Comment on above: IG% - Immature Granu locytes (promyelocytes, myelocytes and metamyelocytes) > 1% indicates that a LEFT SHIFT is Present. MCH (RBC) [Entitic mass] 31.1 pg 27.0-32.0 [facility] Work Phone: Nucleated RBC/100 WBC (Bld) [Ratio] 0 % 0-5 [facility] Work Phone: MCHC Auto (RBC) [Mass/Vol]on 05-08-2022 MCHC (RBC) [Mass/Vol] 32.8 g/dL 32-36 [facility] Work Phone: No Panel Informationon 05-08 Blood Gas Oxygen Percent 100 [facility] Work Phone: Blood Gas Sample Site L Brach [facility] Work Phone: [phone] Blood Gas Specimen Type ART [facility] Work Phone: Blood Gas Total CO2 29 mmol/L [facility] Work Phone: Oxygen Delivery Device NRB [facility] Work Phone: Estimated Creatinine Clearance Calc 39.22 ml/min [facility] Work Phone: Estimated GFR (MDRD) Amer 51 mL/min >60 [facility] Work Phone: Comment on above: GFR Calc Estimated GFR (MDRD) Non-Af Amer 42 mL/min >60 [facility] Work Phone: Comment on above: Non- GFR Calc Oxygen (BldA) [Partial press ure]on 05-08-2022 Oxygen (Bld) [Partial pressure] 108 mmHG 75-100 [facility] Work Phone: Platelets bldon 05-08-2022 Platelets (Bld) [#/Vol] 190 10*3/uL 150-450 [facility] Work Phone: Serum or plasma albumin jenelle urement (mass/volume)on 05-08-2022 Albumin [Mass/Vol] 3.1 g/dL 3.2-5.0 [facility] Work Phone: Serum or plasma albumin/glob ulin mass ratioon 05-08-2022 Albumin/Globulin [Mass ratio] 0.8 {ratio} 0.9-2.4 [facility] Work Phone: Serum or plasma calcium jenelle urement (mass/volume)on 05-08-2022 Calcium [Mass/Vol] 8.0 mg/dL 8.5-10.1 [facility] Work Phone: Serum or plasma creatinine m easurement (mass/volume)on 05-08-2022 Creatinine [Mass/Vol] 1.72 mg/dL 0.70-1.30 [facility] Work Phone: Comment on above: The validity of the calculated GFR & GFRAA in patients over 70 years has not been determined. Clinical correlation is essential. Serum or plasma urea nitroge n measurement (mass/volume)on 05-08-2022 Urea nitrogen [Mass/Vol] 26 mg/dL 7-18 [facility] Work Phone: Thin prep Papanicolaou smear with manual screeningon 05-08-2022 Thin prep Papanicolaou smear with manual screening 33 U/L 15-37 [facility] Work Phone: Thin prep Papanicolaou smear with manual screening 6 5-15 [facility] Work Phone: pH measurementon 05-08-2022 pH (Unsp spec) 7.35 [pH] 7.35-7.45 [facility] Work Phone: Absolute lymphocyte counton 05-07-2022 Lymphocytes Auto (Unsp spec) [#/Vol] 0.39 10*3/uL 0.83-4.51 [facility] Work Phone: Basophil percentageon 2021 Basophil percentage 10-25 SEEN /hpf 0-5 [facility] Work Phone: Basophils/100 WBC (Bld) 0.6 % 0-1 [facility] Work Phone: [phone] Bilirubin [Mass/Vol] 0.50 mg/dL 0.20-1.00 [facility] Work Phone: Comment on above: For patients on eltr ombopag therapy, use of Dimension [place] TBIL is not recommended. Chloride [Moles/Vol] 104 mmol/L 98-107 [facility] Work Phone: Eosinophils/100 WBC (Bld) 0.7 % 0-5 [facility] Work Phone: [phone] Glucose [Mass/Vol] 208 mg/dL 74-106 [facility] Work Phone: Comment on above: Glucose result great er than or equal to 200 mg/dLsuggests DIABETES MELLITUS per A.D.A. criteria. Lactate [Moles/Vol] 1.7 mmol/L 0.4-2.0 [facility] Work Phone: [phone] Neutrophils (Bld) [#/Vol] 7.4 10*3/uL 2.0-7.7 [facility] Work Phone: [phone] Neutrophils/100 WBC (Bld) 83.5 % 47-70 [facility] Work Phone: Potassium [Moles/Vol] 4.2 mmol/L 3.5-5.1 [facility] Work Phone: Protein [Mass/Vol] 6.9 g/dL 6.4-8.2 [facility]: Sodium [Moles/Vol] 139 mmol/L 136-[facility] Work Phone: WBC (Bld) [#/Vol] 8.9 10*3/uL 4.4-11.0 [facility] Work Phone: [phone] Bilirubin Test strip Ql (U)o n 05-07-2022 Bilirubin Ql (U) Negative Negative [facility] Work Phone: [phone] Blood erythrocytes count (nu mber/volume)on 05-07-2022 RBC (Bld) [#/Vol] 4.36 10*6/uL 4.6-6.2 [facility] Work Phone: Blood hemoglobin measurement (mass/volume)on 05-07-2022 Hemoglobin (Bld) [Mass/Vol] 13.5 g/dL 13.0-16.5 [facility] Work Phone: Blood lymphocytes/100 leukoc yteson 05-07-2022 Lymphocytes/100 WBC (Bld) 4.4 % 19-41 [facility] Work Phone: Blood monocytes/100 leukocyt eson 05-07-2022 Monocytes/100 WBC (Bld) 10.3 % 0-10 [facility] Work Phone: Blood platelet mean volumeon 05-07-2022 Platelet mean volume (Bld) [Entitic vol] 9.2 fL 6.2-12.0 [facility] Work Phone: Determination of erythrocyte mean corpuscular volume (MCV)on 05-07-2022 MCV (RBC) [Entitic vol] 92.9 fL 80-94 [facility] Work Phone: Direct bilirubinon Bilirubin.direct [Mass/Vol] 0.15 mg/dL 0.00-0.30 [facility] Work Phone: [phone] Hematocrit Auto (Bld) [Volum e fraction]on 05-07-2022 Hematocrit (Bld) [Volume fraction] 40.5 % 40-54 [facility] Work Phone: [phone] Ketones Test strip Ql (U)on 05-07-2022 Ketones Ql (U) Negative Negative [facility] Work Phone: [phone] Laboratory - Chemistry and C hemistry - challengeon 05-07-2022 ALP [Catalytic activity/Vol] 92 U/L 45-117 [facility] Work Phone: ALT [Catalytic activity/Vol] 30 U/L 16-61 [facility] Work Phone: CO2 [Moles/Vol] 28.0 mmol/L 21.0-32.0 [facility] Work Phone: [phone] Globulin (S) [Mass/Vol] 3.5 g/dL 2.2-4.2 [facility] Work Phone: [phone] Urea nitrogen/Creatinine [Mass ratio] 18.1 mg/mg 10-20 [facility] Work Phone: [phone] Laboratory - Hematology and Cell countson 05-07-2022 Erythrocyte distribution width (RBC) [Entitic vol] 47.5 fL 35.1-43.9 [facility] Work Phone: [phone] Erythrocyte distribution width (RBC) [Ratio] 13.9 % 11.6-14.6 [facility] Work Phone: Immature granulocytes/100 WBC (Bld) 0.500 % 0.0-0.9 [facility] Work Phone: [phone] Comment on above: IG% - Immature Granu locytes (promyelocytes, myelocytes and metamyelocytes) > 1% indicates that a LEFT SHIFT is Present. MCH (RBC) [Entitic mass] 31.0 pg 27.0-32.0 [facility] Work Phone: [phone] Nucleated RBC/100 WBC (Bld) [Ratio] 0 % 0-5 [facility] Work Phone: MCHC Auto (RBC) [Mass/Vol]on 05-07-2022 MCHC (RBC) [Mass/Vol] 33.3 g/dL 32-36 [facility] Work Phone: Mucus LM Ql (Urine sed)on Mucus Ql (Urine sed) 0 SEEN /hpf [facility] Work Phone: Nitrite Test strip Ql (U)on 05-07-2022 Nitrite Ql (U) Positive Negative [facility] Work Phone: No Panel Informationon 05-07 Estimated Creatinine Clearance Calc 64.24 ml/min [facility] Work Phone: Estimated GFR (MDRD) Amer 90 mL/min >60 [facility] Work Phone: Comment on above: GFR Calc Estimated GFR (MDRD) Non-Af Amer 74 mL/min >60 [facility] Work Phone: Comment on above: Non- GFR Calc Platelets bldon 05-07-2022 Platelets (Bld) [#/Vol] 215 10*3/uL 150-450 [facility] Work Phone: Protein Test strip Ql (U)on 05-07-2022 Protein Ql (U) 30 mg/dl Negative [facility] Work Phone: Serum or plasma albumin jenelle urement (mass/volume)on 05-07-2022 Albumin [Mass/Vol] 3.4 g/dL 3.2-5.0 [facility] Work Phone: Serum or plasma calcium jenelle urement (mass/volume)on 05-07-2022 Calcium [Mass/Vol] 8.5 mg/dL 8.5-10.1 [facility] Work Phone: Serum or plasma creatinine m easurement (mass/volume)on 05-07-2022 Creatinine [Mass/Vol] 1.05 mg/dL 0.70-1.30 [facility] Work Phone: Comment on above: The validity of the calculated GFR & GFRAA in patients over 70 years has not been determined. Clinical correlation is essential. Serum or plasma urea nitroge n measurement (mass/volume)on 05-07-2022 Urea nitrogen [Mass/Vol] 19 mg/dL 7-18 [facility] Work Phone: Squamous epithelial cells de tection in urine sediment by light microscopyon 05-07-2022 Epithelial cells.squamous LM Ql (Urine sed) 0-5 SEEN /hpf 0-5 [facility] Work Phone: Thin prep Papanicolaou smear with manual screeningon 05-07-2022 Thin prep Papanicolaou smear with manual screening 22 U/L 15-37 [facility] Work Phone: Thin prep Papanicolaou smear with manual screening 7 5-15 [facility] Work Phone: Urine blood detectionon 04-11 RBC Ql (U) Negative Negative [facility] Work Phone: RBC Ql (U) 0 SEEN /hpf 0-5 [facility] Work Phone: Urine clarityon 05-07-2022 Clarity (U) Sl. Cloudy Clear [facility] Work Phone: Urine color determinationon 05-07-2022 Color (U) Yellow Yellow [facility] Work Phone: Urine glucose detectionon Glucose Ql (U) Normal mg/dl Normal [facility] Work Phone: Urine leukocyte esterase det ection by dipstickon 05-07-2022 Leukocyte esterase Test strip Ql (U) 100 /ul Negative [facility] Work Phone: Urine pHon 05-07-2022 pH (U) 6.5 [pH] 5.0 - 8.0 [facility] Work Phone: Urine sediment bacteria coun t by microscopy (number/high power field)on 05-07-2022 Bacteria LM.HPF (Urine sed) [#/Area] 2 /[HPF] None Seen [facility] Work Phone: Urine specific gravity measu rementon 05-07-2022 Specific gravity (U) [Rel density] 1.015 1.002-1.03 0 [facility] Work Phone: Urobilinogen Auto test strip Ql (U)on 05-07-2022 Urobilinogen Ql (U) Normal mg/dl Normal [facility] Work Phone: Absolute lymphocyte counton 10-28-2021 Lymphocytes Auto (Unsp spec) [#/Vol] 2.06 10*3/uL 0.83-4.51 [facility] Work Phone: Basophil percentageon 2021 Basophils/100 WBC (Bld) 0.9 % 0-1 [facility] Work Phone: Chloride [Moles/Vol] 108 mmol/L 98-107 [facility] Work Phone: Eosinophils/100 WBC (Bld) 2.8 % 0-5 [facility] Work Phone: Glucose [Mass/Vol] 209 mg/dL 74-106 [facility] Work Phone: Comment on above: Glucose result great er than or equal to 200 mg/dLsuggests DIABETES MELLITUS per A.D.A. criteria. Neutrophils (Bld) [#/Vol] 5.2 10*3/uL 2.0-7.7 [facility] Work Phone: Neutrophils/100 WBC (Bld) 60.9 % 47-70 [facility] Work Phone: Potassium [Moles/Vol] 4.4 mmol/L 3.5-5.1 [facility] Work Phone: Sodium [Moles/Vol] 140 mmol/L 136-145 [facility] Work Phone: WBC (Bld) [#/Vol] 8.6 10*3/uL 4.4-11.0 [facility] Work Phone: Blood erythrocytes count (nu mber/volume)on 10-28-2021 RBC (Bld) [#/Vol] 4.65 10*6/uL 4.6-6.2 [facility] Work Phone: [phone] Blood hemoglobin measurement (mass/volume)on 10-28-2021 Hemoglobin (Bld) [Mass/Vol] 14.4 g/dL 13.0-16.5 [facility] Work Phone: Blood lymphocytes/100 leukoc yteson 10-28-2021 Lymphocytes/100 WBC (Bld) 23.9 % 19-41 [facility] Work Phone: Blood monocytes/100 leukocyt eson 10-28-2021 Monocytes/100 WBC (Bld) 11.4 % 0-10 [facility] Work Phone: Blood platelet mean volumeon 10-28-2021 Platelet mean volume (Bld) [Entitic vol] 9.4 fL 6.2-12.0 [facility] Work Phone: Determination of erythrocyte mean corpuscular volume (MCV)on 10-28-2021 MCV (RBC) [Entitic vol] 92.0 fL 80-94 [facility] Work Phone: Hematocrit Auto (Bld) [Volum e fraction]on 10-28-2021 Hematocrit (Bld) [Volume fraction] 42.8 % 40-54 [facility] Work Phone: [phone] Laboratory - Chemistry and C hemistry - challengeon 10-28-2021 CO2 [Moles/Vol] 31.0 mmol/L 21.0-32.0 [facility] Work Phone: Urea nitrogen/Creatinine [Mass ratio] 16.8 mg/mg - [facility] Work Phone: Laboratory - Hematology and Cell countson 10-28-2021 Erythrocyte distribution width (RBC) [Entitic vol] 43.3 fL 35.1-43.9 [facility] Work Phone: Erythrocyte distribution width (RBC) [Ratio] 12.9 % 11.6-14.6 [facility] Work Phone: Immature granulocytes/100 WBC (Bld) 0.100 % 0.0-0.9 [facility] Work Phone: Comment on above: IG% - Immature Granu locytes (promyelocytes, myelocytes and metamyelocytes) > 1% indicates that a LEFT SHIFT is Present. MCH (RBC) [Entitic mass] 31.0 pg 27.0-32.0 [facility] Work Phone: Nucleated RBC/100 WBC (Bld) [Ratio] 0 % 0-5 [facility] Work Phone: MCHC Auto (RBC) [Mass/Vol]on 10-28-2021 MCHC (RBC) [Mass/Vol] 33.6 g/dL 32-36 [facility] Work Phone: No Panel Informationon 10-28 Estimated Creatinine Clearance Calc 81.27 ml/min [facility] Work Phone: Estimated GFR (MDRD) Amer 118 mL/min >60 [facility] Work Phone: Comment on above: GFR Calc Estimated GFR (MDRD) Non-Af Amer 97 mL/min >60 [facility] Work Phone: Comment on above: Non- GFR Calc Platelets bldon 10-28-2021 Platelets (Bld) [#/Vol] 222 10*3/uL 150-450 [facility] Work Phone: Serum or plasma calcium jenelle urement (mass/volume)on 10-28-2021 Calcium [Mass/Vol] 8.7 mg/dL 8.5-10.1 [facility] Work Phone: Serum or plasma creatinine m easurement (mass/volume)on 10-28-2021 Creatinine [Mass/Vol] 0.83 mg/dL 0.70-1.30 [facility] Work Phone: Comment on above: The validity of the calculated GFR & GFRAA in patients over 70 years has not been determined. Clinical correlation is essential. Serum or plasma urea nitroge n measurement (mass/volume)on 10-28-2021 Urea nitrogen [Mass/Vol] 14 mg/dL 7-18 [facility] Work Phone: Thin prep Papanicolaou smear with manual screeningon 10-28-2021 Thin prep Papanicolaou smear with manual screening 1 5-15 [facility] Work Phone: COVID PCR, SCREENING CONGREG ATEon 11-02-2019 CORONAVIRUS 2019,PCR NOT DETECTED Normal Not Detected [facility] Comment on above: Result Comment: This assay is designed to detect the N, ORF1ab and/or S genes of SARS-CoV-2 via nucleic acid amplification. A Negative (NOT DETECTED) result does not preclude 2019-nCoV infection since the adequacy of sample collection and/or low viral burden may result in presence of viral nucleic acids below the clinical sensitivity of this test method. Negative (NOT DETECTED) result should not be used as the sole basis for treatment or other patient management decisions. Rather negative results should be combined with clinical observations, patient history, and epidemiological information to make patient management decisions. Fact sheet for providers: https://www.fda.gov/media/135918/download Fact sheet for patients: https://www.fda.gov/media/857187/download This test has received FDA Emergency Use Authorization (EUA) and has been verified by [facility] ([facility]). This test is only authorized for the duration of time that circumstances exist to justify the authorization of the emergency use of in vitro diagnostic tests for the detection of SARS-CoV-2 virus and/or diagnosis of COVID-19 infection under section 564(b)(1) of the Act, 21 U.S.C. 360bbb-3(b)(1), unless the authorization is terminated or revoked sooner. [facility] ([facility]) is certified under CLIA-88 as qualified to perform high complexity testing. This tests analytical performance characteristics have been determined by [facility]. Testing is performed at [facility] is located at [address] [place] [address] (CLIA License #[id number], CAP #[id number]). Performed By: #### C VCLA #### [facility] [address] [place] [address] COVID PCR, SCREENING CONGREG ATEon 11-01-2019 Lab Specimen Source Nasal, Nasopharyngeal Normal [facility] Comment on above: Performed By: #### C VCLA #### [facility] [address] [facility] [place] [address] ALLIED HEALTHon 06-30-2017 ALLIED HEALTH HNO ID: [id number] thor: Marina (Rn) Isabel RNService: Home Care ServicesAuthor Type: Registered NurseType: Allied HealthFiled: 06/30/2017 3:57 PMNote Text:HISTORICAL SITE GUIDE NOTESERVICE DATE: 06/30/2017SERVICE TIME: 3:56 PMDischarge:Aware of Discharge home todayPhysician order placed for Home Care ServicesHome Care Agency: [facility] (hosp[facility])Start of care date: TBDPatient/Family agree to discharge plan: YesPatient to have Palliative services at [facility], per family choice.SIGNATURE: Marina Hall RN PATIENT NAME: Loc McdowellDATE: June 30, 2017 : 3:56 PM [facility] Basic Panelon 06-30-2017 Creatinine 0.56 mg/dL Low 0.67-1.17 [facility] Comment on above: Performed By: #### M AG ####[place] [address] Anion gap 9 mmol/L Normal 8-16 [facility] Comment on above: Performed By: #### M AG ####[place] [address] Calcium 8.7 mg/dL Normal 8.5-10.1 [facility] Comment on above: Performed By: #### M AG ####[place] [address] CO2 30 mmol/L Normal 21-32 [facility] Comment on above: Performed By: #### M AG ####[place] [address] Glucose mass conc 159 mg/dL High 70-99 [facility] Comment on above: Performed By: #### M AG ####[facility] [place] [address] Urea nitrogen 14 mg/dL Normal 7-18 [facility] Comment on above: Performed By: #### M AG ####[facility] [place] [address] Chloride 100 mmol/L Normal 98-107 [facility] Comment on above: Performed By: #### M AG ####[facility] [place] [address] Potassium molar conc 4.0 mmol/L Normal 3.5-5.1 [facility] Comment on above: Performed By: #### M AG ####[place] [address] Sodium 135 mmol/L Low 136-145 [facility] Comment on above: Performed By: #### M AG ####[place] [address] CASE MANAGEMon 06-30-2017 CASE MANAGEM HNO ID: [id number] thor: Josephine (Rn) GARCIA Evanservice: Care ManagementAuthor Type: Registered NurseType: Care Mgt Progress NoteFiled: 06/30/2017 10:26 AMNote Text:CARE MANAGEMENT PROGRESS NOTESERVICE DATE: 06/30/2017SERVICE TIME: 1025 LOS: 7 daysPt [facility] Cot set up for 1230. Pt'funmi Cassidy called and made aware. RN aware.SIGNATURE: Josephine Evans RN PATIENT NAME: Loc GraysonerDATE: June 30, 2017 : 10:25 AM PAGER/CONTACT #: [phone] [facility] CNDSon 06-30-2017 CNDS HNO ID: [id number] thor: Charlene Montoyaervice: Hospital MedicineAuthor Type: PhysicianType: Discharge SummariesFiled: 06/30/2017 11:05 AMNote Text:DISCHARGE SUMMARYPATIENT NAME: Loc GraysonerMRN: [id number] Information Admission Information ADMIT DATE: 06/23/2017DISCHARGE DATE: 06/30/2017MY DOCTORS AND MEDICAL TEAM:[facility] Doctor: Charlene Bishop Care Provider: Kwaku Romero Medical Team Members: Treatment Team:Attending Provider: Charlene MukherjeeConsulting: Anastasia Frazier-AliAttending: Ak Sound MaizeMY CONDITION AT DISCHARGE: StableREASON I WAS IN THE HOSPITAL: StrokeSUMMARY OF WHAT HAPPENED WHILE I WAS IN THE HOSPITAL: You were admittedfor a severe stroke. You were found to have both of your carotid arteriesblocked, one of which was able to be stented with improvement of yoursymptoms.OTHER PROBLEMS/DIAGNOSIS:Principal Problem: Carotid artery, internal, occlusion, bilateralActive Problems: Carotid occlusion, bilateralResolved Problems: * No resolved hospital problems. *OPERATIONS PERFORMED WHILE IN THE HOSPITAL: NoneIMPORTANT TEST/PROCEDURES:Cerebral angiogram with right carotid artery stentTEST RESULTS NOT AVAILABLE AT THIS TIME:No pending results Discharge Disposition Discharge Disposition: Long-Term Facility - Less than 30 DaysActivity When You Leave the Hospital Limited to: Per PT/OTDiet Instructions Other: NPO, Tube feeds through PEGFollow Up Appointments Follow-Up Appointment When: In 1 weekPercy [phone] [address] [facility] [id number] Requested ReferralAdditional Provider to Provider Information:1. 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 ?Continue ASA/Plavix/statin.??2. ?UTI - completed abx Rx??3. ?Dysphagia - PEG feeding??4. 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 ?HTN/HPL - currently good BP off meds??6. ?PAD - see #1.FOLLOW-UP APPOINTMENTS ALREADY SCHEDULED WITH A [facility] PROVIDER:No future appointments.DISCHARGE MEDICATION: Current Discharge Medication ListSTART taking these medicationsInsulin NPH human ( NovoLIN N, HumuLIN N) 5 UnitsInject 5 Units subcutaneously every 8 hours.clopidogrel (PLAVIX) 75 mg75 mg by PEG route once daily.CONTINUE these medications which have CHANGEDaspirin 81 mg81 mg by PEG route once daily.CONTINUE these medications which have NOT CHANGEDacetaminophen (TYLENOL) 1,000 mg1,000 mg by PEG Tube route three times daily.atorvastatin (LIPITOR) 80 mgTake 80 mg by mouth daily at bedtime.bisacodyl (DULCOLAX) 10 mg10 mg by RECTAL route at bedtime as needed for Constipation. If no BM 8hours after MOM administrationmineral oil (FLEET MINERAL OIL ENEMA) 118 mL118 mL by RECTAL route once daily as needed for Constipation. If no BM 8hours after receiving suppositorygemfibrozil (LOPID) 600 mgTake 600 mg by mouth twice daily before meals. 30 minutes before breakfastand dinnermagnesium hydroxide (MOM) 30 mL30 mL by G-TUBE route once daily as needed for Constipation. Once daily ifno BM in 3 consecutive daysgabapentin (NEURONTIN) 300 mg300 mg by PEG Tube route three times daily. For neuropathic painTIME OF CARE: Discharge Management: I personally spent greater than 30minutes involved in the discharge management of this patient.SIGNATURE: Charlene Mukherjee MD PAGER/CONTACT #:DATE: June 30, 2017TIME: 11:04 AM [facility] Glucose Meteron 06-30-2017 Glucose mass conc 160 mg/dL High 70-99 [facility] Comment on above: Result Comment: EVITA Lujan OTIFIED Performed By: #### P HOS ####[place] [address] Glucose mass conc 165 mg/dL High 70-99 [facility] Comment on above: Result Comment: EVITA Lujan OTIFIED Performed By: #### P HOS ####[place] [address] Glucose mass conc 148 mg/dL High 70-99 [facility] Comment on above: Performed By: #### M AG ####[place] [address] Hemogramon 06-30-2017 Erythrocyte distribution width Auto Ratio (RBC) 13.3 % Normal 11.6-14.4 [facility] Comment on above: Performed By: #### M AG ####[place] [address] Erythrocytes (RBC) 3.98 mil/cmm Low 4.63-6.08 [facility] Comment on above: Performed By: #### M AG ####[place] [address] Hematocrit (HCT) 36.9 % Low 40.1-51.0 [facility] Comment on above: Performed By: #### M AG ####[place] [address] Hemoglobin mass conc (Bld) 12.3 g/dL Low 13.7-17.5 [facility] Comment on above: Performed By: #### M AG ####[place] [address] MCH 30.9 pg Normal 25.7-32.2 [facility] Comment on above: Performed By: #### M AG ####[place] [address] MCHC mass conc (RBC) 33.3 % Normal 32.3-36.5 [facility] Comment on above: Performed By: #### M AG ####[place] [address] MCV 92.7 fL Normal 83.2-95.6 [facility] Comment on above: Performed By: #### M AG ####[place] [address] Platelet mean volume (PMV) 10.0 fL Normal 8.7-12.0 [facility] Comment on above: Performed By: #### M AG ####[place] [address] Platelets 296 thou/cmm Normal 141-365 [facility] Comment on above: Performed By: #### M AG ####[place] [address] RDW SD 45.4 fl Normal 36.1-45.8 [facility] Comment on above: Performed By: #### M AG ####[place] [address] WBC (Leukocytes) 11.85 thou/cmm High 4.23-9.07 [facility] Comment on above: Performed By: #### M AG ####[place] [address] MDRD GFRon 02-20-2018 eGFR (non-black) mL/min/{1.73_m2} Normal >60mL/m in/ 1.73m2 [facility] Comment on above: Result Comment: If t he patient is , multiply the result by 1.210. Performed By: #### P HOS ####[facility] [place], [place] [address] Magnesium Bloodon 06-30-2017 Magnesium 2.2 mg/dL Normal 1.6-2.6 [facility] Comment on above: Performed By: #### P HOS ####[address] [address] NURSING PROGon 06-30-2017 NURSING PROG HNO ID: [id number] thor: Jess (Rn) Amado, RNService: (none)Author Type: Registered NurseType: Nursing Progress NoteFiled: 06/30/2017 11:19 AMNote Text:I just spoke with Dr. Mukherjee to verify whether or not the patient's Foleycatheter should stay inserted upon discharge. He stated he wants thecatheter to stay in, and stated it is okay to clamp the patient's PEG tubeprior to discharge while being transported to the facility. [facility] PROGRESSon 06-30-2017 PROGRESS HNO ID: [id number] thor: Charlene Montoyaervice: [facility] MedicineAuthor Type: PhysicianType: Progress NotesFiled: 06/30/2017 9:29 AMNote Text:INPATIENT PROGRESS NOTESERVICE DATE: 06/30/2017SERVICE TIME: AMSPRIMARY SERVICE: SoundSubjectiveCHI COMPLAINT: AMSINTERVAL HPI: unable to ROS 2/2 aphasiaCurrent hospital medications:hydrALAZINE 10-20 mg injection (APRESOLINE) 10-20 mg INTRAVENOUS q 4 H PRNInsulin NPH human 5 Units injection pen (intermediate acting) ( NovoLIN N,HumuLIN N) 5 Units SUBCUTANEOUS q 8 Haspirin 81 mg chewable tab(s) 81 mg PEG DAILYatorvastatin 80 mg tab(s) (LIPITOR) 80 mg PEG AT BEDTIMEclopidogrel 75 mg tab(s) (PLAVIX) 75 mg PEG DAILYdocusate sodium oral liquid 100 mg/10 mL (DIOCTO,COLACE) 100 mg PEG BIDacetaminophen 650 mg tab(s) (TYLENOL) 650 mg PEG q 4 H PRNenoxaparin 40 mg injection (LOVENOX) 40 mg SUBCUTANEOUS q 24 HRoxyCODONE IR 5-10 mg tab(s) (ROXICODONE) 5-10 mg PEG q 6 H PRNgabapentin 300 mg cap(s) (NEURONTIN) 300 mg PEG q 8 Hmetoprolol 5 mg injection (LOPRESSOR) 5 mg INTRAVENOUS q 4 H PRNipratropium-albuterol 3 mL nebulizer solution (DUONEB) 3 mL INHALATION q 4H PRNondansetron (PF) 4 mg injection (ZOFRAN) 4 mg INTRAVENOUS q 6 H PRNdextrose 40 % 15 g (INSTA-GLUCOSE) 15 g ORAL PRNglucagon 1 mg injection (GLUCAGEN) 1 mg INTRAMUSCULAR PRNdextrose 50% in water 25 mL syringe 12.5 g INTRAVENOUS PRNinsulin regular human injection (short acting) (NovoLIN R,HumuLIN R)SUBCUTANEOUS q 6 HObjectivePHYSICAL EXAM:BP 139/76 Pulse 65 Temp (Src) 98.6 (Oral) Resp 18 Ht 5' 8 (1.73m) Wt 241 lb 13.5 oz (109.7kg) SpO2 97% BMI 36.78 kg/(m2).Physical Exam PerformedGENERAL: Alert, no distress, cooperativeSKIN: Skin color, texture, turgor normal. No rashes or lesions.EYES: EOMINECK: No jugulovenous distention, SuppleLUNGS: Lungs clear to auscultation, Good diaphragmatic excursionCARDIAC: Normal S1 and S2; no rubs, murmurs, or gallopsABDOMEN: Abdomen soft, non-tender, BS normal, No masses or organomegalyEXTREMITIES: Extremities normal, no deformities, edema, clubbing or skindiscoloration. Good capillary refill.NEURO: Right hemiparesis, aphasiaDATA:Diagnostic tests reviewed for today's visit:Most recent labs and imaging results.Assessment/Plan1. 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 Continue ASA/Plavix/statin.?2. UTI - completed abx Rx?3. Dysphagia - PEG feeding?4. T2DM with complications - scheduled NPH and Regular with good control?5. HTN/HPL - currently good BP off meds?6. PAD - see #1.SIGNATURE: Charlene Mukherjee MD PATIENT NAME: Loc McdowellDATE: June 30, 2017 : 9:27 AM PAGER: [place] [facility] Phosphorus Bloodon 8 Phosphate 3.9 mg/dL Normal 2.5-4.9 [facility] Comment on above: Performed By: #### P HOS ####[place] [address] Basic Panelon 06-29-2017 Creatinine 0.70 mg/dL Normal 0.67-1.17 [facility] Comment on above: Performed By: #### P 8 ####[place] [address] Urea nitrogen 15 mg/dL Normal 7-18 [facility] Comment on above: Performed By: #### P 8 ####[address] [address] Anion gap 9 mmol/L Normal 8-16 [facility] Comment on above: Performed By: #### P 8 ####[address] [address] Calcium 8.5 mg/dL Normal 8.5-10.1 [facility] Comment on above: Performed By: #### P 8 ####[place] [address] CO2 30 mmol/L Normal 21-32 [facility] Comment on above: Performed By: #### P 8 ####[address] [address] Glucose mass conc 152 mg/dL High 70-99 [facility] Comment on above: Performed By: #### P 8 ####[place] [address] Chloride 103 mmol/L Normal 98-107 [facility] Comment on above: Performed By: #### P 8 ####[address] [address] Potassium molar conc 4.0 mmol/L Normal 3.5-5.1 [facility] Comment on above: Performed By: #### P 8 ####[place] [address] Sodium 138 mmol/L Normal 136-145 [facility] Comment on above: Performed By: #### P 8 ####[place] [address] CASE MANAGEMon 06-29-2017 CASE MANAGEM HNO ID: [id number] thor: Josephine (Rn) GARCIA Evanservice: Care ManagementAuthor Type: Registered NurseType: Care Mgt Progress NoteFiled: 06/29/2017 12:59 PMNote Text:CARE MANAGEMENT PROGRESS NOTESERVICE DATE: 06/29/2017SERVICE TIME: 1258 LOS: 6 daysNeeds Prior to Discharge: Ready for Dis[place]Pt [place]. Doesn't need precert. Can returnwhen ready.SIGNATURE: Josephine Evans RN PATIENT NAME: Loc McdowellDATE: June 29, 2017 : 12:58 PM PAGER/CONTACT #: [phone] [facility] CASE MANAGEM HNO ID: [id number] Author: Abi (Specialist) Melisa Service: (none) Author Type: (none) Type: Care Mgt Progress Note Filed: 06/29/2017 9:50 AM Note Text: Updates sent to [facility] CHEST 1 VIEWon 06-29-2017 CHEST 1 VIEW Performed at [place] APPROVED BY: Mario Alberto Reyes MD EXAMINATION: CHEST RADIOGRAPH (PORTABLE SINGLE VIEW AP) Exam Date/Time: 06/29/2017 3:23 PMClinical History: Hypoxia.M: XCP_3Comparison: Chest x-ray 06/25/2017. RESULT: See impression. IMPRESSION: Limitations: Limited inspiration/low lung volumes. Lines, tubes, and devices: Interval extubation. Lungs and pleura: No visualized pneumothorax, infiltrate or sizable pleural effusion. Interval resolution of consolidative changes at the left lung base. Cardiomediastinal silhouette: Remains stable. Other: Visualized osseous structures are unchanged. Normal [facility] Glucose Meteron 06-29-2017 Glucose mass conc 133 mg/dL High 70-99 [facility] Comment on above: Result Comment: RN N OTIFIED Performed By: #### M AG ####[address] [address] Glucose mass conc 148 mg/dL High 70-99 [facility] Comment on above: Result Comment: RN N OTIFIED Performed By: #### M AG ####[address] [address] Glucose mass conc 99 mg/dL Normal 70-99 [facility] Comment on above: Result Comment: EVITA Lujan OTIFIED Performed By: #### M AG ####[address] [address] Glucose mass conc 198 mg/dL High 70-99 [facility] Comment on above: Result Comment: EVITA Lujan OTIFIED Performed By: #### M AG ####[address] [address] Glucose mass conc 116 mg/dL High 70-99 [facility] Comment on above: Result Comment: EVITA Lujan OTIFIED Performed By: #### M AG ####[address] [address] Glucose mass conc 123 mg/dL High 70-99 [facility] Comment on above: Result Comment: EVITA Lujan OTIFIED Performed By: #### P 8 ####[address] [address] Glucose mass conc 126 mg/dL High 70-99 [facility] Comment on above: Result Comment: EVITA Lujan OTIFIED Performed By: #### P 8 ####[address] [address] Hemogram/Diffon 06-29-2017 Abs Immature Grans 0.08 thou/cmm High 0.00-0.05 [facility] Comment on above: Performed By: #### M AG ####[place] [address] Abs. Baso 0.10 thou/cmm High 0.01-0.08 [facility] Comment on above: Performed By: #### M AG ####[facility] [place], [place] [address] Abs. [place] 0.90 thou/cmm High 0.30-0.82 [facility] Comment on above: Performed By: #### M AG ####[place] [address] Abs. Neut 7.08 thou/cmm High 1.78-5.38 [facility] Comment on above: Performed By: #### M AG ####[place] [address] Basophils/100 WBC Auto (Bld) 0.9 % Normal [facility] Comment on above: Performed By: #### M AG ####[address] [address] Eosinophils 0.47 thou/cmm Normal 0.04-0.54 [facility] Comment on above: Performed By: #### M AG ####[place] [address] Eosinophils/100 leukocytes 4.1 % Normal [facility] Comment on above: Performed By: #### M AG ####[place] [address] Erythrocyte distribution width Auto Ratio (RBC) 13.4 % Normal 11.6-14.4 [facility] Comment on above: Performed By: #### M AG ####[place] [address] Erythrocytes (RBC) 3.76 mil/cmm Low 4.63-6.08 [facility] Comment on above: Performed By: #### M AG ####[place] [address] Hematocrit (HCT) 35.5 % Low 40.1-51.0 [facility] Comment on above: Performed By: #### M AG ####[place] [address] Hemoglobin mass conc (Bld) 11.7 g/dL Low 13.7-17.5 [facility] Comment on above: Performed By: #### M AG ####[address] [address] Immature Grans 0.70 % Normal [facility] Comment on above: Performed By: #### M AG ####[place] [address] Lymphocytes 2.88 thou/cmm High 0.84-2.85 [facility] Comment on above: Performed By: #### M AG ####[address] [address] Lymphocytes/100 leukocytes 25.0 % Normal [facility] Comment on above: Performed By: #### M AG ####[place] [address] MCH 31.1 pg Normal 25.7-32.2 [facility] Comment on above: Performed By: #### M AG ####[place] [address] MCHC mass conc (RBC) 33.0 % Normal 32.3-36.5 [facility] Comment on above: Performed By: #### M AG ####[place] [address] MCV 94.4 fL Normal 83.2-95.6 [facility] Comment on above: Performed By: #### M AG ####[address] [address] Monocytes/100 leukocytes 7.8 % Normal [facility] Comment on above: Performed By: #### M AG ####[place] [address] Platelet mean volume (PMV) 10.1 fL Normal 8.7-12.0 [facility] Comment on above: Performed By: #### M AG ####[place] [address] Platelets 264 thou/cmm Normal 141-365 [facility] Comment on above: Performed By: #### M AG ####[place] [address] RDW SD 46.0 fl High 36.1-45.8 [facility] Comment on above: Performed By: #### M AG ####[facility] [place], [place] [address] Seg Neutrophil 61.5 % Normal [facility] Comment on above: Performed By: #### M AG ####[facility] [place], [place] [address] WBC (Leukocytes) 11.52 thou/cmm High 4.23-9.07 [facility] Comment on above: Performed By: #### M AG ####[address] [address] MDRD GFRon 06-29-2017 eGFR (non-black) mL/min/{1.73_m2} Normal >60mL/m in/ 1.73m2 [facility] Comment on above: Result Comment: If t he patient is , multiply the result by 1.210. Performed By: #### P 8 ####[address] [address] Magnesium Bloodon 06-29-2017 Magnesium 2.1 mg/dL Normal 1.6-2.6 [facility] Comment on above: Performed By: #### P 8 ####[address] [address] NUTRITIONon 06-29-2017 NUTRITION HNO ID: [id number] thor: Chasity (Rd) CioccaService: Nutrition TherapyAuthor Type: Registered DietitianType: NutritionFiled: 06/29/2017 4:09 PMNote Text:NUTRITION THERAPY PROGRESS NOTESERVICE DATE: 06/29/2017SERVICE TIME: 11:08 AMRECOMMENDED DIAGNOSIS: NO MALNUTRITION IDENTIFIED per Registered Dietitianon 06/24/17NUTRITION CARE PLANSuboptimal oral intake related to dysphagia as evidenced by ST evaluationand TFIntervention:Current TF order: Isosource 1.5 at goal rate of 52 ml/hr to provide 1875kcals, 85 g protein, 220 g CHO, 954 ml free water with flush: 200 ml 6times/dayRecommend: Advance diet Dysphagia 1 and nectar thick liquids with TFmeeting 80% estimated nutrient needs. Start: Bolus feeds of Isosource 1.5 at 4 cans/day to provide 1500 kcals,68 grams protein.Monitor and Evaluation:Goal: Meet >75% of estimated needsMonitor fluid/electrolyte balanceMonitor labs, I/Os, vital signs, weightMonitor tolerance to tube feedingDischarge Nutrition Recommendations:Tube feeding: Isosource 1.5 at 52 ml/hr to meet full estimated nutrientneeds.Recommend Isosource 1.5 bolus feeds at 4 cans/day to meet 80% estimatedneeds and allow PO diet. Monitor TF needs with PO intake and adjust asneeded. 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 He has right sidedhemiparesis and global aphasia and a PEG tube from a previous stroke. Hewas diagnosed with a UTI at [facility] and an MRI showed bilateral hemisphericstrokes. CTA also showed complete occlusion of the left ICA from itsorigin with a short segment of high grade stenosis vs occlusion at theright ICA origin.Interval History: Patient required intubation, extubated 06/26. He is nowstable from a neurology and respiratory standpoint. Patient s/p stentingfor right common carotid and internal carotid artery thrombosis. IVFdiscontinued. Plans for d/c to rehab soon. Palliative care to followpatient with return to [place]. +bowel function, last BM 06/29. Patientdenied nay N/V/D. Labs reviewed, electrolytes WNL, glucose consistentlyhigh. ST re-evaluated patient and recommended dysphagia 1 diet with nectarthick liquids and continue PEG to supplement nutrition.ACTIVE PROBLEM LISTPad (Peripheral Artery Disease) ([facility])WartHtn (Hypertension)Hypercholestere miaAlcohol AbuseArterial Vascular DiseaseSmokerSummaryDm (Diabetes Mellitus) ([facility])Drug ReactionEdemaDiabetic Eye Exam (Hcc)Leg pain, bilateralWell Adult ExamScreening for Prostate CancerAcute Ischemic Left Mca Stroke ([facility])Expressive AphasiaCarotid Artery, Internal, Occlusion, BilateralCarotid Occlusion, BilateralPAST MEDICAL HISTORYDiagnosis Date- ALCOHOL ABUSE 10/29/2006- Difficult airway 06/21/2013 Grade III- HTN (hypertension)- PAD (peripheral artery disease) ([facility])- Peripheral vascular disease with claudication ([facility])- Stress hyperglycemia 06/21/2013 06/22/2013 Glucoses 160 on arrival to ICU Was started on RHI gtt perprotocol and converted to Lantus and SSI. 06/23/2013 Check [id number]- Tobacco use disorder 10/29/2006Present Diet Order: Isosource 1.5 at goal rate of 52 ml/hr wit 200 mlflush Q4 hoursNutritional Intake: >75% estimated energy needs over the past 6 day(s) asevidenced by TF providing estimated needs during admission.Nutritional Intake Prior to Admission: >75% estimated energy needs overthe past 4 months. Patient was receiving Glucerna 1.5 TF at [facility] with oralintake. He received a bolus of TF if he eats less than 50% of a meal.Admission Weight: 105.9 kg (233 lb 7.5 oz)Current Weight: 109.7 kg (241 lb 13.5 oz)Body mass index is 36.77 kg/(m2). class 2 obesityNo recent weight history available.Last Wt06/27/17 : 109.7 kg (241 lb 13.5 oz)07/31/14 : 109.2 kg (240 lb 11.2 oz)01/18/14 : 103.4 kg (228 lb)09/13/13 : 98.7 kg (217 lb 9.6 oz)07/25/13 : 93.4 kg (206 lb)07/14/13 : 96.2 kg (212 lb)07/05/13 : 101.2 kg (223 lb)06/17/13 : 97.5 kg (214 lb 15.2 oz)05/23/13 : 97.5 kg (215 lb)05/20/13 : 98.9 kg (218 lb)Temperature Max in 24 hours: Temp (24hrs), Av.8 ?C (98.2 ?F), Min:36.4?C (97.5 ?F), Max:37.2 ?C (99 ?F) BP 117/67 Pulse (!) 54 Temp 36.4 ?C (97.5 ?F) (Axillary) Resp 19 Ht 172.7 cm (5' 8) Wt 109.7 kg (241 lb 13.5 oz) SpO2 90% BMI 36.77kg/r1Ugabdd Labs 06/29/1802GLUC -- 152*BUN -- 15CREAT -- 0.70NA -- 138K -- 4.0CHLOR -- 103CO2 -- 30HB 11.7* --HCT 35.5* --WBC 11.52* --P -- 4.8MG -- 2.1Potential Signs of Inflammation: leukocytosisResults for LOC MCDOWELL ( ) as of 06/29/2017 11:21 Ref. Range 06/25/2017 04:30 06/26/2017 04:15 06/27/2017 03:45 06/28/201704:16 06/29/2017 03:30Glucose Latest Ref Range: 70 - 99 mg/dL 127 (H) 202 (H) 163 (H) 145 (H)152 (H)Results for LOC MCDOWELL ( ) as of 06/29/2017 11:21 Ref. Range 06/27/2017 03:45 06/28/2017 04:16 06/29/2017 03:30Calcium Latest Ref Range: 8.5 - 10.1 mg/dL 7.9 (L) 8.4 (L) 8.5ALLERGIESNo Known AllergiesCurrent Facility-Administered Medications:hydrALAZINE 10-20 mg injection (APRESOLINE) 10-20 mg INTRAVENOUS q 4 H PRNInsulin NPH human 5 Units injection pen (intermediate acting) ( NovoLIN N,HumuLIN N) 5 Units SUBCUTANEOUS q 8 Haspirin 81 mg chewable tab(s) 81 mg PEG DAILYatorvastatin 80 mg tab(s) (LIPITOR) 80 mg PEG AT BEDTIMEclopidogrel 75 mg tab(s) (PLAVIX) 75 mg PEG DAILYdocusate sodium oral liquid 100 mg/10 mL (DIOCTO,COLACE) 100 mg PEG BIDacetaminophen 650 mg tab(s) (TYLENOL) 650 mg PEG q 4 H PRNenoxaparin 40 mg injection (LOVENOX) 40 mg SUBCUTANEOUS q 24 HRoxyCODONE IR 5-10 mg tab(s) (ROXICODONE) 5-10 mg PEG q 6 H PRNgabapentin 300 mg cap(s) (NEURONTIN) 300 mg PEG q 8 Hmetoprolol 5 mg injection (LOPRESSOR) 5 mg INTRAVENOUS q 4 H PRNipratropium-albuterol 3 mL nebulizer solution (DUONEB) 3 mL INHALATION q 4H PRNondansetron (PF) 4 mg injection (ZOFRAN) 4 mg INTRAVENOUS q 6 H PRNdextrose 40 % 15 g (INSTA-GLUCOSE) 15 g ORAL PRNOrglucagon 1 mg injection (GLUCAGEN) 1 mg INTRAMUSCULAR PRNOrdextrose 50% in water 25 mL syringe 12.5 g INTRAVENOUS PRNinsulin regular human injection (short acting) (NovoLIN R,HumuLIN R)SUBCUTANEOUS q 6 HMNT Billing Type: Re-assess/15 min 3 unitsSIGNATURE: Chasity Clifton RD, LD PATIENT NAME: Loc McdowellDATE: June 29, 2017 : 11:08 AM PAGER: [phone] [facility] PROGRESSon 06-29-2017 PROGRESS HNO ID: [id number] thor: Charlene Montoyaervice: [facility] MedicineAuthor Type: PhysicianType: Progress NotesFiled: 06/29/2017 3:42 PMNote Text:INPATIENT PROGRESS NOTESERVICE DATE: 06/29/2017SERVICE TIME: 3:29 PMPRIMARY SERVICE: SoundSubjectiveCHIEF COMPLAINT: AMSINTERVAL HPI: unable to ROS 2/2 aphasiaCurrent [facility] medications:hydrALAZINE 10-20 mg injection (APRESOLINE) 10-20 mg INTRAVENOUS q 4 H PRNInsulin NPH human 5 Units injection pen (intermediate acting) ( NovoLIN N,HumuLIN N) 5 Units SUBCUTANEOUS q 8 Haspirin 81 mg chewable tab(s) 81 mg PEG DAILYatorvastatin 80 mg tab(s) (LIPITOR) 80 mg PEG AT BEDTIMEclopidogrel 75 mg tab(s) (PLAVIX) 75 mg PEG DAILYdocusate sodium oral liquid 100 mg/10 mL (DIOCTO,COLACE) 100 mg PEG BIDacetaminophen 650 mg tab(s) (TYLENOL) 650 mg PEG q 4 H PRNenoxaparin 40 mg injection (LOVENOX) 40 mg SUBCUTANEOUS q 24 HRoxyCODONE IR 5-10 mg tab(s) (ROXICODONE) 5-10 mg PEG q 6 H PRNgabapentin 300 mg cap(s) (NEURONTIN) 300 mg PEG q 8 Hmetoprolol 5 mg injection (LOPRESSOR) 5 mg INTRAVENOUS q 4 H PRNipratropium-albuterol 3 mL nebulizer solution (DUONEB) 3 mL INHALATION q 4H PRNondansetron (PF) 4 mg injection (ZOFRAN) 4 mg INTRAVENOUS q 6 H PRNdextrose 40 % 15 g (INSTA-GLUCOSE) 15 g ORAL PRNglucagon 1 mg injection (GLUCAGEN) 1 mg INTRAMUSCULAR PRNdextrose 50% in water 25 mL syringe 12.5 g INTRAVENOUS PRNinsulin regular human injection (short acting) (NovoLIN R,HumuLIN R)SUBCUTANEOUS q 6 HObjectivePHYSICAL EXAM:BP 108/72 Pulse 66 Temp (Src) 99 (Oral) Resp 18 Ht 5' 8 (1.73m) Wt 241 lb 13.5 oz (109.7kg) SpO2 96% BMI 36.78 kg/(m2).Physical Exam PerformedGENERAL: Alert, no distress, cooperativeSKIN: Skin color, texture, turgor normal. No rashes or lesions.EYES: EOMINECK: No jugulovenous distention, SuppleLUNGS: Lungs clear to auscultation, Good diaphragmatic excursionCARDIAC: Normal S1 and S2; no rubs, murmurs, or gallopsABDOMEN: Abdomen soft, non-tender, BS normal, No masses or organomegalyEXTREMITIES: Extremities normal, no deformities, edema, clubbing or skindiscoloration. Good capillary refill.NEURO: Right hemiparesis, aphasiaDATA:Diagnostic tests reviewed for today's visit:Most recent labs and imaging results.Assessment/Plan1. 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 Continue ASA/Plavix/statin.2. UTI - completed abx Rx3. Dysphagia - PEG feeding4. T2DM with complications - scheduled NPH and Regular with good control5. HTN/HPL - currently good BP off meds6. PAD - see #1.SIGNATURE: Charlene Mukherjee MD PATIENT NAME: Loc McdowellDATE: June 29, 2017 : 3:29 PM PAGER: [place] [facility] Phosphorus Bloodon 8 Phosphate 4.8 mg/dL Normal 2.5-4.9 [facility] Comment on above: Performed By: #### P 8 ####[facility] [place] [id number] THERAPY NTon 06-29-2017 THERAPY NT HNO ID: [id number] thor: Phoebe (Otr/L) ThoService: Occupational TherapyAuthor Type: Occupational TherapistType: Therapy (PT/OT/Speech/Resp)Filed: 06/29/2017 3:40 PMNote Text:Occupational Therapy EvaluationSERVICE DATE: 06/29/2017SERVICE TIME: 1415 to 1435ROOM: [id number] Discharge Disposition: Subacute/SNFJustification For Post Acute Needs: Medically complex;Willing toparticipate;Good sitting toleranceOT Recommendations to Nursing: With assist of 1 person;Not appropriate forout of bed activity at this time (EOB with assist for ADLs)OT 6 Clicks Score: 9Precautions/Activity Restrictions: Aspiration;Bed/Chair Alarm;Fall RiskPrecaution/Activity Restriction Comments: HOB >30 degreesIsolation Type: NoneASSESSMENT:OT Evaluation Moderate Complexity:Occupational Profile - Extended review of patient's medical recordcompleted including patient's physical, cognitive, and psycho-socialhistory (please see current hospital course of evaluation).Occupational Performance - Pt presents with deficits in feeding, grooming,UE bathing/dressing, LE bathing/dressing, functional transfers, functionalmobility, decreased safety awareness, decreased insight into deficitsComplexity in Clinical Decision Making - The extent of clinical reasoningwas moderate, several treatment options present for the patient, need formodification during the evaluation was minimal/moderate, comorbiditiesaffecting occupational performance:Tolerated Full SessionOccupational Therapy Problem List: Education Deficit;CognitiveDeficit;Safe ty Deficits;Impaired Self Care;Decreased ActivityTolerance;Decreased Strength;Functional Mobility Impairment;BalanceImpairedPat ient /Caregiver Goals: (pt unable to report)Goals for Plan of Care:Grooming with: Moderate Assistance (sitting EOB )Upper Body Bathing with: Moderate AssistanceUpper Body Dressing with: Moderate AssistanceTolerate (minutes of functional activity): 25Functional Activity with: Moderate AssistanceAdditional Goal 1: Pt to demo F+ activity bridgette EOB for 20 minAdditional Goal 2: Pt to demo F+ attn with ADL/axAdditional Goal 3: Pt to complete bed mobility with Mod A Rehab Potential: FairPLAN:Treatment Frequency (times per week): 3 (1-3)Reasons Therapy Services Discontinued: (intubated with no plans ofextubation soon) Current admissionTreatment Interventions: Education;Self Care / HomeManagement;Strengthening; Functional Mobility Training;BalanceTraining;Cogn itive TrainingPlan of Care developed with: PatientTREATMENT INTERVENTIONS:Therapy Diagnosis: Reduced mobility-other;Decreased activities of dailyliving (ADL);Muscle Weakness (generalized);Signs and Symptoms InvolvingCognitive Functions and AwarenessInterventions Provided: Evaluation$ Evaluation-Moderate (23138) Billed Units: 1 unitFacilitated safe edge of bed activity, pt required cues to place L hand torail and hold, after a few attempts pt holds self in sitting withrelatively little assist.Total Treatment Time (minutes): 20FUNCTIONAL G CODE:OT 6 Clicks Score: 9 (06/29/17 1415) Self Care Current Status (G8987): CL (06/29/17 1415)Self Care Goal Status (G8988): CK (06/29/17 1415)Based on clinical assessment and the score on the 6 Clicks FunctionalAssessment Tool, the G code and corresponding severity modifiers aredocumented above.SUBJECTIVE:Current Hospital Course: Chart reviewed;Loc Mcdowell is a 67 year old right-handed male with past medicalhistory significant for L MCA stroke due to L ICA occlusion in 01/25,presently living in care home with flaccid R hemiparesis and globalaphasia, chronic PEG, who was found on 06/22 with AMS. Reportedly the pt usually is somewhat interactive and on 06/22 he wasunresponsive with R gaze deviation.MRI done for workup of encephalopathy showed unexpectedly bilateralhemispheric strokesCTA showed complete occlusion of the L ICA from its origin with shortsegment high grade stenosis vs occlusion at the R ICA origin. 06/24 Procedure(s): DCA and Stenting of the Rt CCA/ICAREMOVED Airway Endotracheal Tube Removal date:06/26/17Active Hospital Problems Diagnosis- Carotid artery, internal, occlusion, bilateral- Carotid occlusion, bilateralActive Hospital Problems Diagnosis- Carotid artery, internal, occlusion, bilateral- Carotid occlusion, bilateralPAST MEDICAL HISTORYDiagnosis Date- ALCOHOL ABUSE 10/29/2006- Difficult airway 06/21/2013 Grade III- HTN (hypertension)- PAD (peripheral artery disease) (HCC)- Peripheral vascular disease with claudication (HCC)- Stress hyperglycemia 06/21/2013 06/22/2013 Glucoses 160 on arrival to ICU Was started on RHI gtt perprotocol and converted to Lantus and SSI. 06/23/2013 Check MbT6l-6.5- Tobacco use disorder 10/29/2006Patient Report: Pt in room, awake. Unable to meaningfully verbalizeintially, after session able to say no clearly a few times. Pt followscommands inconsistently.Pain: no c/o winces slightly with R shoulder ROM above 110 degreesHome EnvironmentPatient Lives With: Facility CareAssistance Available: 24 HourPrior Functional Level: Required AssistanceAssistance Required With: SelfCare;Safety;Meals;Cleanin g;Laundry;Transfers;Ambulatio nPrior Functional Level Comments: Patient unable to provide informationOBJECTIVE:Communic ation Deficits: Expressive Deficits;Receptive DeficitsOrientation Deficits: Unable to assess (due to limited speech)Responsiveness: Awake;AlertFollows Commands: 1-step Commands;Cueing NeededCueing to Follow Commands: Moderate (inconsistently follows commands)Attention Deficits: DividedMemory Deficits: (not assessed)Executive Function Deficits: Safety Awareness;Insight toDeficits;Judgement Safety Awareness Deficit: Moderate impairmentJudgement Deficit: Moderate impairmentInsight to Deficits: Moderate impairmentCURRENT FUNCTIONAL STATUS:Current Activities of Daily Living Assist LevelFeeding Total Assistance (PEG)Grooming Maximal AssistanceBathing Upper Body Maximal AssistanceBathing Lower Body Total AssistanceDressing Upper Body Maximal AssistanceDressing Lower Body Total AssistanceToileting Total AssistanceFunctional Mobility Assist LevelRollingSupine to Sit Maximal Assistance (x 2)Sit to Supine Maximal Assistance ( x 2)Scooting Maximal Assistance (x2)Sit to StandStand to SitBed to ChairToilet/CommodeFunctional MobilityHand Dominance: LeftRange Of Motion: Within Functional Limits ExceptLocation ROM Not WFL: (L UE spastic, limited range in extension)Strength: Within Functional Limits ExceptLocation Strength Not WFL: Upper ExtremityLeft Upper Extremity Strength: 4-/5Right Upper Extremity Strength: inceased tone, no functional useTone Abnormalities: SpasticSite Spastic: R Upper ExtremityCoordination Deficits: In hand manipulation;Finger oppositionFinger Opposition Impairment: RightHand Manipulation Impairment: RightBalance: Static SittingStatic Sitting Balance: Minimal AssistanceActivity Tolerance: Sitting ActivitySitting Activity: EOB sittingSitting Activity Tolerance (in minutes): 10 Edu pt on fall prevention / up with assistance. Pt left in room in bedand bed alarm activated with calllight within reach.Please see discipline specific clinical documentation flowsheet forcomplete details for this therapy evaluation/treatment.SIGNSRINIVASA E: MARIA T Bustillo/Flash PATIENT NAME: Loc McdowellDATE: June 29, 2017 : 3:34 PM PAGER: [phone] [facility] THERAPY NT HNO ID: [id number] thor: Catarina (Pt) Ascencionervice: Physical TherapyAuthor Type: Physical TherapistType: Therapy (PT/OT/Speech/Resp)Filed: 06/29/2017 3:04 PMNote Text:Physical Therapy EvaluationSERVICE DATE: 06/29/2017SERVICE TIME: 1420 to 1444ROOM: [id number] Discharge Disposition: Subacute/SNFJustification For Post Acute Needs: Anticipate that patient will requiredaily (5x/wk) skilled therapy in a post-acute facility setting at the timeof acute hospital dischargePT Recommendations to Nursing: Not appropriate for OOB activity at thistimePT 6 Clicks Score: 9Precautions/Activity Restrictions: Aspiration;Bed/Chair Alarm;Fall RiskPrecaution/Activity Restriction Comments: HOB >30 degreesIsolation Type: NoneASSESSMENT :Patient presents with personal factors, comorbidities and results of thePT examination that require moderate complexity decision making. Thepatient requires skilled physical therapy to address multiple PT problemsin order for the patient to return to a baseline functional level.Tolerance Limited By FatiguePhysical Therapy Problem List: Education Deficit;Safety Deficits;DecreasedStrength;Fu nctional Mobility Impairment;Balance ImpairedPatient /Caregiver Goals: WalkGoals for Plan of Care:Able to perform HEP with: Moderate AssistanceTransfer supine to/from sit with: Moderate AssistanceTransfer sit to/from stand with: Moderate AssistanceTransfer: Bed to chair with maximal assistRehab Potential: FairPLAN:Treatment Frequency (times per week): 3 (1-3)Reasons Therapy Services Discontinued: Change in medical status (nowintubated and no plan to extubate soon per RN) Current admissionTreatment Interventions: Education;Strengthening;Funct ional MobilityTraining;Balance Training;Neuromuscular Re-educationPlan of Care developed with: PatientTREATMENT INTERVENTIONS:Therapy Diagnosis: Reduced mobility-other;Muscle Weakness(generalized);Abnorma lities of gait and mobility-otherInterventions Provided: Evaluation;Therapeutic Activity (48603)$ Evaluation-Moderate (18506) Billed Units: 1 unitTherapeutic Activity (29466) Treatment Minutes: 40 unitsSkilled Intervention(s): Instructed patient in supine to sit pushing withupper extremities to sit upEducation with upright posture while sitting at edge of bed. Patientinitially required moderate assist to maintain upright posture whilesitting at edge of bed but with use of bedrail and left upper extremitypatient progressed to contact guard assist.Attempted to perform long arc quads while sitting up at edge of bed.Patient performed left lower extremity with partial range. Attempted sitto stand with blocking right lower extremity and assist of 2. Unable toachieve full upright posture due to weakness.Total Timed Code Treatment Minutes: 4Total Treatment Time (minutes): 24FUNCTIONAL G CODE:PT 6 Clicks Score: 9 (06/29/17 1420)Mobility: Walking and Moving Around Current Status (G8978): CM ()Mobility: Walking and Moving Around Goal Status (G8979): CL ()Based on clinical assessment and the score on the 6 Clicks FunctionalAssessment Tool, the G code and corresponding severity modifiers aredocumented above.SUBJECTIVE:Current Hospital Course: Chart reviewed;Patient is a 67 year old male who presented to the ED with altered mentalstatus. Patient with past medical history of L MCA (01/25) with flaccid Rhemiparesis and global aphasia, PEG.Patient status post PROCEDURE: Cerebral angiography and stenting of theright common carotid/internal carotid artery on 06/24/17. Patient wasextubated on 06/26/17.IMAGING CT head Large area encephalomalacia involving the left frontal,parietal and temporallobes and the left middle cerebral artery distribution likely representingsubacute infarct. There is a 1.4 cm x 0.6 cm focus of increased densitywithinthe area of encephalomalacia which may represent small area of acutehemorrhage.Active Hospital Problems Diagnosis- Carotid artery, internal, occlusion, bilateral- Carotid occlusion, bilateralPAST MEDICAL HISTORYDiagnosis Date- ALCOHOL ABUSE 10/29/2006- Difficult airway 06/21/2013 Grade III- HTN (hypertension)- PAD (peripheral artery disease) ([facility])- Peripheral vascular disease with claudication ([facility])- Stress hyperglycemia 06/21/2013 06/22/2013 Glucoses 160 on arrival to ICU Was started on RHI gtt perprotocol and converted to Lantus and SSI. 06/23/2013 Check [id number]- Tobacco use disorder 10/29/2006PAST SURGICAL HISTORYProcedure Laterality Date- ARTHROSCOPY OF JOINT UNLISTED 11/25/96 LEFT ELBOW- PAST SURGICAL HISTORY OF right leg stent- PAST SURGICAL HISTORY OF 06/2013 Aortobifem bypassPatient Report: No complaints of pain. Agreeable to PT. Patient withaphasia per chart. Patient with limited verbalizations during treatmenttoday, mostly yes/no answers.Home EnvironmentPatient Lives With: Facility CareAssistance Available: 24 HourPrior Functional Level: Required AssistanceAssistance Required With: SelfCare;Safety;Meals;Cleanin g;Laundry;Transfers;Ambulatio nPrior Functional Level Comments: Patient unable to provide informationOBJECTIVE:CURRENT FUNCTIONAL STATUS:Current Functional Mobility Assist Level Additional InformationRolling Maximal AssistanceSupine to Sit Maximal AssistanceSit to Supine Maximal AssistanceScooting Maximal AssistanceSit to StandStand to SitBed to ChairToilet/CommodeGaitStairs Curb StepCar TransferRange Of Motion: Within Functional Limits ExceptLocation ROM Not WFL: Other: See CommentOther ROM: PROM only right UE and LEStrength: Within Functional Limits ExceptLocation Strength Not WFL: Upper Extremity;Lower ExtremityLeft Upper Extremity Strength: 3/5Right Upper Extremity Strength: 0/5Left Lower Extremity Strength: 3/5Right Lower Extremity Strength: 1/5Balance: Static SittingStatic Sitting Balance: Minimal AssistanceActivity Tolerance: Sitting ActivitySitting Activity: sitting up at EOBSitting Activity Tolerance (in minutes): 5Please see discipline specific clinical documentation flowsheet forcomplete details for this therapy evaluation/treatment.SIGNATUR E: Catarina Rain PT PATIENT NAME: Loc GraysonerDATE: June 29, 2017 : 2:56 PM PAGER/CONTACT #: [phone] [facility] THERAPY NT HNO ID: [id number] thor: Arianne (Vulcanizing Press Operator) SHIRLEY Sow/SLPService: Speech/SwallowAuthor Type: Speech Language PathologistType: Therapy (PT/OT/Speech/Resp)Filed: 06/29/2017 11:22 AMNote Text:Speech Therapy FEES EvaluationSERVICE DATE: 06/29/2017SERVICE TIME: 0900 to 1037ROOM: [id number] Recommendations: Reinforce use of swallowing strategiesDiet Recommendations:? Dysphagia Level 1 (Pureed)? Albertson Thick Liquids? Continue PEG to supplement nutrition or for medicationsSwallowing Precautions Recommendations:? Alert (patient should be fully alert for P.O. Intake)? Sit upright 90 degrees for all PO? Small Bite/Sip? No strawsResults and Recommendations Discussed With: Patient;NurseRecommended Discharge Disposition: Subacute/SNFJustification For Post Acute Needs: Willing to participate;May nottolerate higher intensity programingIMPRESSION:Patient demonstrates mild oral pharyngeal dysphagia which is negativelyimpacting his/her ability to effectively maintain adequate nutrition andhydration and/or airway safety. Prior to admission, patient had beeneating pureed foods and nectar thick liquids along with PEG to supplementlimited nutrition.-Prior to the start of the procedure, a time out was taken to verballyconfirm the identification of the patient utilizing but not limited toname and date of and to verify a Fiberoptic Endoscopic Evaluation ofSwallowing is being conducted according to standard operating procedure.-The [employer]Hacker Nasendoscope Model ENT 3L, serial number [id number] was utilizedduring this assessment.Instrumental Swallow Assessment Type: FEESPharyngeal/Laryngeal Evaluation:Pharyngeal Movement/Constriction Weakness: BilateralPooling Of Secretions Noted In: Laryngeal VestibuleLaryngeal Vestibule Pooling: RightOral Phase: Within Functional Limits ExceptPharyngeal Phase: Within Functional Limits ExceptEpiglottic Movement: Complete inversionTongue Base Retraction: No bolus between tongue base and posteriorpharyngeal wallPharyngeal Residue: Trace residue within or on the pharyngeal structures -with ice chips and thin liquid onlyPenetration/Aspiration Scale: 1-Material does not enter airwayRehabilitation Precautions: Aspiration Precautions;Modified Diet;DysphagiaIsolation Type: NoneNPO Precautions: PEGASSESSMENT:? The patient was awake and alert; poor ability to talk due to Aphasia? The scope was inserted easily through the right nares? Pharyngeal wall, arytenoids and laryngeal vestibule are mildly swollen? Vocal cord movement appears normal? Mild amount of secretions present in laryngeal vestibule beforepresenting food/drink? Patient able to clear the secretions independently with a cough or aswallow? Patient given ice chips, thin and a nectar thick liquid and puddingpresented in order to test swallow? Soft solid and solid not assessed as patient is edentulous? Residuals are present after the swallow of ice chips and thin liquid inthe intra-arytenoid space? No residuals present after the swallow of nectar thick liquid and puree? No aspiration overallTolerated Full SessionGoals for Plan of Care:Swallow Goals:Patient will participate in a Fiberoptic Endoscopic Evaluation ofSwallowing (FEES) to thoroughly evaluate the oral and pharyngeal phase ofthe swallow, which cannot be substantiated through a clinical swallowingevaluation only. Through further diagnostic testing a definitivediagnosis/identific ation of the patient's current swallowing function andrecommended treatment plan can be established. Goal met 06/29/2017New Swallow Goals 06/29/2017: Patient will tolerate Dysphagia Level 1 (Pureed) diet consistency whileutilizing compensatory/swallowing strategies given minimal cues in 90% oftrials so that the patient will minimize the signs/symptoms of dysphagia.Patient will tolerate Albertson Thick Liquids consistency while utilizingcompensatory/swallow ing strategies given minimal cues in 90% of trials sothat the patient will minimize the signs/symptoms of dysphagia.Patient will participate in Speech-Language, Cognitive evaluation tofurther assess cognitive abilities to facilitate progress in therapy.Patient /Caregiver Goals: Eat/Drink Without RestrictionsRehab Potential: GoodPLAN:Treatment Frequency (times per week): 3 Current admissionTreatment Interventions: Dysphagia ManagementPlan of Care Developed with: FamilyTREATMENT INTERVENTIONS:Therapy Diagnosis: Dysphagia, oropharyngeal phaseInterventions Provided: FEES W Cine Or Video (01690)$ FEES W Cine Or Video (14199) Billed Units: 1 unitTotal Treatment Time (minutes): 97FUNCTIONAL G CODE:G Code Functional Limitations: Swallowing (06/29/17899)Swallow Current Status (G8996): CL (06/29/17899)Swallow Goal Status (G8997): CK (06/29/17899)Based on clinical assessment and the score on the Functional CommunicationMeasure (FCM), the G code and corresponding severity modifiers aredocumented above.SUBJECTIVE:Current Hospital Course: Chart reviewed and no significant medical updatesrelevant to therapy were notedPatient Report: Patient is non-verbal due to AphasiaHome EnvironmentPrior Functional Level: Required AssistancePrior Swallowing Function/Diet Textures: Dysphagia Level 1 (Pureed);NectarThick Liquids (PEG to supplement nutrition)Please see discipline specific clinical documentation flowsheet forcomplete details for this therapy evaluation/treatment.AVNI E: Arianne Sow CCC-CLINICAL SERVICES DIRECTOR PATIENT NAME: Loc McdowellDATE: June 29, 2017 : 11:00 AM PAGER: [phone] [facility] Basic Panelon 06-28-2017 Creatinine 0.61 mg/dL Low 0.67-1.17 [facility] Comment on above: Performed By: #### L IPD2 ####[facility] [place] [address] Glucose mass conc 145 mg/dL High 70-99 [facility] Comment on above: Performed By: #### L IPD2 ####[facility] [place] [address] Urea nitrogen 15 mg/dL Normal 7-18 [facility] Comment on above: Performed By: #### L IPD2 ####[place] [address] Anion gap 8 mmol/L Normal 8-16 [facility] Comment on above: Performed By: #### L IPD2 ####[facility] [place], [place] [address] Calcium 8.4 mg/dL Low 8.5-10.1 [facility] Comment on above: Performed By: #### L IPD2 ####[facility] [place], [place] [address] CO2 32 mmol/L Normal 21-32 [facility] Comment on above: Performed By: #### L IPD2 ####[facility] [place], [place] [address] Chloride 104 mmol/L Normal 98-107 [facility] Comment on above: Performed By: #### L IPD2 ####[facility] [place], [place] [address] Potassium molar conc 3.8 mmol/L Normal 3.5-5.1 [facility] Comment on above: Performed By: #### L IPD2 ####[facility] [place], [place] [address] Sodium 140 mmol/L Normal 136-145 [facility] Comment on above: Performed By: #### L IPD2 ####[facility] [place], [place] [address] Glucose Meteron 06-28-2017 Glucose mass conc 133 mg/dL High 70-99 [facility] Comment on above: Result Comment: EVITA Lujan OTIFIED Performed By: #### P 8 ####[facility] [place], [place] [address] Glucose mass conc 116 mg/dL High 70-99 [facility] Comment on above: Performed By: #### P 8 ####[address] [address] Glucose mass conc 174 mg/dL High 70-99 [facility] Comment on above: Result Comment: EVITA Lujan OTIFIED Performed By: #### P 8 ####[address] [address] Hemogramon 06-28-2017 Erythrocyte distribution width Auto Ratio (RBC) 13.7 % Normal 11.6-14.4 [facility] Comment on above: Performed By: #### L IPD2 ####[facility] [place] [address] Erythrocytes (RBC) 3.72 mil/cmm Low 4.63-6.08 [facility] Comment on above: Performed By: #### L IPD2 ####[facility] [place] [address] Hematocrit (HCT) 33.8 % Low 40.1-51.0 [facility] Comment on above: Performed By: #### L IPD2 ####[facility] [place] [address] Hemoglobin mass conc (Bld) 11.4 g/dL Low 13.7-17.5 [facility] Comment on above: Performed By: #### L IPD2 ####[place] [address] MCH 30.6 pg Normal 25.7-32.2 [facility] Comment on above: Performed By: #### L IPD2 ####[place] [address] MCHC mass conc (RBC) 33.7 % Normal 32.3-36.5 [facility] Comment on above: Performed By: #### L IPD2 ####[place] [address] MCV 90.9 fL Normal 83.2-95.6 [facility] Comment on above: Performed By: #### L IPD2 ####[facility] [place] [address] Platelet mean volume (PMV) 10.1 fL Normal 8.7-12.0 [facility] Comment on above: Performed By: #### L IPD2 ####[place] [address] Platelets 265 thou/cmm Normal 141-365 [facility] Comment on above: Performed By: #### L IPD2 ####[place] [address] RDW SD 45.3 fl Normal 36.1-45.8 [facility] Comment on above: Performed By: #### L IPD2 ####[facility] [place], [place] [address] WBC (Leukocytes) 11.84 thou/cmm High 4.23-9.07 [facility] Comment on above: Performed By: #### L IPD2 ####[facility] [place], [place] [address] MDRD GFRon 06-28-2017 eGFR (non-black) mL/min/{1.73_m2} Normal >60mL/m in/ 1.73m2 [facility] Comment on above: Result Comment: If t he patient is , multiply the result by 1.210. Performed By: #### P 8 ####[address] [address] Magnesium Bloodon 06-28-2017 Magnesium 2.0 mg/dL Normal 1.6-2.6 [facility] Comment on above: Performed By: #### L IPD2 ####[address] [address] NURSING PROGon 06-28-2017 NURSING PROG HNO ID: [id number] thor: Adeel DiazRn) GARCIA Navarroervice: NursingAuthor Type: Registered NurseType: Nursing Progress NoteFiled: 06/27/2017 11:54 PMNote Text: Nursing Progress NotePatient Name: Loc Fox ReberMRN: [id number] Location: [place] [address] [address]*____ Transfer Note:Patient transferred into room/unit 9109 in stable condition. Actionstaken: Report given/called to Alex Rust note was completed by: EVITA Courtney [facility] PROGRESSon 06-28-2017 PROGRESS HNO ID: [id number] thor: [place] MaeisoyeService: Hospital MedicineAuthor Type: PhysicianType: Progress NotesFiled: 06/28/2017 5:48 PMNote Text: Hospital Medicine Progress NotePatient Name: Loc McleanRN: [id number] Date: 06/23/2017Reason For Admission: CVAIMPRESSION AND PLAN:Active Hospital Problems Diagnosis- Carotid artery, internal, occlusion, bilateral- Carotid occlusion, bilateral1. B/L hemispheric CVA- recurrent episode of stroke while in rehabNeuro ICU care since admissionContinue present mgt - plavix / ASA/ statinPT/OT/SPL. Anti-seizure ppx d/cedD/C IVF; continue PEG tube feedsRehab placement asap2. Right common carotid and internal carotid artery thrombosis s/pstenting3. Acute hypoxic respiratory failure- resolved s/p ICU mgt4. UTI- No urine cx noted. On Antibiotics; day 6 today; d/c antibioticstoday5. DM 2- continue tight control; continue PEG feeds; d/c IVF6. Disposition - stable for d/c to rehabPatient ChecklistProphylaxis: VTE - Yes PPI - No. Not indicated.Code Status: DNR CCADisposition: Pravin Yoo MD Interval History:No new issues since transfer to the floorTemp Av.9 ?C (98.5 ?F) Min: 36.6 ?C (97.9 ?F) Max: 37.3 ?C (99.1?F)Pulse Av.1 Min: 55 Max: 84No Data RecordedCuff BP Min: 104/75 Max: 144/88Pain Score: 0/10MEDICATIONS:acetaminophen (ACETAMINOPHEN EXTRA STRENGTH) 500 mg tablet 1,000 mg by PEGTube route three times daily.aspirin 81 mg chewable tablet 162 mg by G-TUBE route once daily.atorvastatin (LIPITOR) 80 mg tablet Take 80 mg by mouth daily at bedtime.bisacodyl (DULCOLAX) 10 mg supp 10 mg by RECTAL route at bedtime as neededfor Constipation. If no BM 8 hours after MOM administrationmineral oil (FLEET MINERAL OIL ENEMA) enema 118 mL by RECTAL route oncedaily as needed for Constipation. If no BM 8 hours after receivingsuppositorygemfibroz il (LOPID) 600 mg tablet Take 600 mg by mouth twice daily beforemeals. 30 minutes before breakfast and dinnermagnesium hydroxide (MILK OF MAGNESIA) 400 mg/5 mL suspension 30 mL byG-TUBE route once daily as needed for Constipation. Once daily if no BM in3 consecutive daysgabapentin (NEURONTIN) 300 mg/6 mL (6 mL) oral solution 300 mg by PEG Tuberoute three times daily. For neuropathic painCurrent hospital medications:hydrALAZINE 10-20 mg injection (APRESOLINE) 10-20 mg INTRAVENOUS q 4 H PRNInsulin NPH human 5 Units injection pen (intermediate acting) ( NovoLIN N,HumuLIN N) 5 Units SUBCUTANEOUS q 8 Haspirin 81 mg chewable tab(s) 81 mg PEG DAILYatorvastatin 80 mg tab(s) (LIPITOR) 80 mg PEG AT BEDTIMEclopidogrel 75 mg tab(s) (PLAVIX) 75 mg PEG DAILYdocusate sodium oral liquid 100 mg/10 mL (DIOCTO,COLACE) 100 mg PEG BIDacetaminophen 650 mg tab(s) (TYLENOL) 650 mg PEG q 4 H PRNenoxaparin 40 mg injection (LOVENOX) 40 mg SUBCUTANEOUS q 24 HRoxyCODONE IR 5-10 mg tab(s) (ROXICODONE) 5-10 mg PEG q 6 H PRNgabapentin 300 mg cap(s) (NEURONTIN) 300 mg PEG q 8 Hmetoprolol 5 mg injection (LOPRESSOR) 5 mg INTRAVENOUS q 4 H PRNipratropium-albuterol 3 mL nebulizer solution (DUONEB) 3 mL INHALATION q 4H PRNNaCl 0.9% iv infusion 5-30 mL/hr INTRAVENOUS CONTINUOUSondansetron (PF) 4 mg injection (ZOFRAN) 4 mg INTRAVENOUS q 6 H PRNdextrose 40 % 15 g (INSTA-GLUCOSE) 15 g ORAL PRNglucagon 1 mg injection (GLUCAGEN) 1 mg INTRAMUSCULAR PRNdextrose 50% in water 25 mL syringe 12.5 g INTRAVENOUS PRNinsulin regular human injection (short acting) (NovoLIN R,HumuLIN R)SUBCUTANEOUS q 6 HPHYSICAL EXAM:BP 128/66 Pulse (!) 55 Temp 36.8 ?C (98.2 ?F) (Oral) Resp 18 Ht172.7 cm (5' 8) Wt 109.7 kg (241 lb 13.5 oz) SpO2 95% BMI 36.77kg/j1FLBBPSZJ EXAMINATION:General appearance: Middle aged man, awake, alert, in no acute distress,but unable to communicate with severe aphasia + dysarthria. Able to followsimple commandsSkin: Skin color, texture, turgor normal, no suspicious rashes or lesionsLungs: Lungs clear to auscultation.Heart: RRR, normal s1s2, no murmursAbdomen: Abdomen soft, non-tender.PEG tube in place - cleanExtremities: No deformities, edema, skin discoloration, clubbing orcyanosis.Neuro -deferred -unable to participate in exam( only lifted left UE)Lab data:CBC:Recent Labs 06/27/1802WBC 11.84* 13.05* 8.72 11.05* 11.75*HB 11.4* 10.6* 10.9* 11.3* 14.5HCT 33.8* 32.6* 33.2* 33.4* 42.3PLT 265 238 217 229 256MCV 90.9 94.2 93.3 91.8 89.6COAG: No results for input(s): APTT, INR in the last 168 hours.BMP:Recent Labs 06/27/1802GLUC 145* 163* 202* 127* 121*NA 140 143 141 142 137K 3.8 3.4* 3.7 3.7 3.4*CHLOR 104 111* 111* 111* 102CO2 32 26 24 24 28ANION 8 9 10 11 10BUN 15 13 9 8 5*CREAT 0.61* 0.59* 0.52* 0.73 0.52*CHEM:Recent Labs 06/27/18025CA 8.4* 7.9* 8.0* 7.8* 8.8MG 2.0 2.0 2.2 1.6 1.8HEPATIC: No results for input(s): ALKPHOS, ALT, AST, TBILI, LIPASE in thelast 168 hours.URINALYSIS:No results for input(s): PH, SPGR, UGLUC, UBILI, UKET, UHB,UPROT, UROBIL, UWBC, SSA in the last 168 hours.Invalid input(s): NITRCARDIAC: No results for input(s): CKTEST, CKMB, CKMBP, TROPT, PBNP in thelast 168 hours.[place] Yoo MD5:21 [facility] CENTERebruzebulon 2017 [facility] Phosphorus Bloodon 8 Phosphate 3.9 mg/dL Normal 2.5-4.9 [facility] Comment on above: Performed By: #### L IPD2 ####[facility] [place], [place] [address] Basic Panelon 06-27-2017 Creatinine 0.59 mg/dL Low 0.67-1.17 [facility] Comment on above: Performed By: #### C BC1 ####[facility] [place], [place] [address] Calcium 7.9 mg/dL Low 8.5-10.1 [facility] Comment on above: Performed By: #### C BC1 ####[facility] [place], [place] [address] Glucose mass conc 163 mg/dL High 70-99 [facility] Comment on above: Performed By: #### C BC1 ####[facility] [place], [place] [address] Urea nitrogen 13 mg/dL Normal 7-18 [facility] Comment on above: Performed By: #### C BC1 ####[facility] [place], [place] [address] Anion gap 9 mmol/L Normal 8-16 [facility] Comment on above: Performed By: #### C BC1 ####[facility] [place], [place] [address] CO2 26 mmol/L Normal 21-32 [facility] Comment on above: Performed By: #### C BC1 ####[facility] [place], [place] [address] Chloride 111 mmol/L High 98-107 [facility] Comment on above: Performed By: #### C BC1 ####[facility] [place], [place] [address] Potassium molar conc 3.4 mmol/L Low 3.5-5.1 [facility] Comment on above: Performed By: #### C BC1 ####[facility] [place], [place] [address] Sodium 143 mmol/L Normal 136-145 [facility] Comment on above: Performed By: #### C BC1 ####[address] [address] Glucose Meteron 06-27-2017 Glucose mass conc 120 mg/dL High 70-99 [facility] Comment on above: Performed By: #### L IPD2 ####[facility] [place], [place] [address] Glucose mass conc 157 mg/dL High 70-99 [facility] Comment on above: Performed By: #### L IPD2 ####[facility] [place], [place] [address] Glucose mass conc 165 mg/dL High 70-99 [facility] Comment on above: Performed By: #### L IPD2 ####[facility] [place], [place] [address] Glucose mass conc 140 mg/dL High 70-99 [facility] Comment on above: Performed By: #### C BC1 ####[facility] [place] [address] Hemogramon 06-27-2017 Erythrocyte distribution width Auto Ratio (RBC) 13.4 % Normal 11.6-14.4 [facility] Comment on above: Performed By: #### C BC1 ####[place] [address] Erythrocytes (RBC) 3.46 mil/cmm Low 4.63-6.08 [facility] Comment on above: Performed By: #### C BC1 ####[place] [address] Hematocrit (HCT) 32.6 % Low 40.1-51.0 [facility] Comment on above: Performed By: #### C BC1 ####[place] [address] Hemoglobin mass conc (Bld) 10.6 g/dL Low 13.7-17.5 [facility] Comment on above: Performed By: #### C BC1 ####[place] [address] MCH 30.6 pg Normal 25.7-32.2 [facility] Comment on above: Performed By: #### C BC1 ####[place] [address] MCHC mass conc (RBC) 32.5 % Normal 32.3-36.5 [facility] Comment on above: Performed By: #### C BC1 ####[place] [address] MCV 94.2 fL Normal 83.2-95.6 [facility] Comment on above: Performed By: #### C BC1 ####[place] [address] Platelet mean volume (PMV) 10.6 fL Normal 8.7-12.0 [facility] Comment on above: Performed By: #### C BC1 ####[place] [address] Platelets 238 thou/cmm Normal 141-365 [facility] Comment on above: Performed By: #### C BC1 ####[facility] [place], [place] [address] RDW SD 45.5 fl Normal 36.1-45.8 [facility] Comment on above: Performed By: #### C BC1 ####[facility] [place], [place] [address] WBC (Leukocytes) 13.05 thou/cmm High 4.23-9.07 [facility] Comment on above: Performed By: #### C BC1 ####[facility] [place], [place] [address] MDRD GFRon 06-27-2017 eGFR (non-black) mL/min/{1.73_m2} Normal >60mL/m in/ 1.73m2 [facility] Comment on above: Result Comment: If t he patient is , multiply the result by 1.210. Performed By: #### L IPD2 ####[address] [address] Magnesium Bloodon 06-27-2017 Magnesium 2.0 mg/dL Normal 1.6-2.6 [facility] Comment on above: Performed By: #### L IPD2 ####[address] [address] OPERATIVE NOon 06-27-2017 OPERATIVE NO HNO ID: [id number] thor: Anastasia GambinoService: NeurosurgeryAuthor Type: PhysicianType: Operative ReportFiled: 07/04/2017 6:25 PMNote Text:[facility] - Operative ReportSURGEON: ROMELIA AmadorATIENT NAME: LOC MCDOWELL MMRN: [id number] CSN: [id number] OF SURGERY: 06/24/2017DATE OF : 1950 SEX/AGE: M/67PATIENT TYPE: I HOSP SVC: NEUR LOCATION: [id number] OF SURGERY: 06/24/2017SURGEON: ROMELIA AmadorROCEDURE: Cerebral angiography and stenting of the right commoncarotid/internal carotid artery.The patient time on table is 3 p.m.The patient off the table is 4:30 p.m.CONSENT: Consent form obtained from the patient's brother over the phone. The patient is obtunded and unable to give consent.COMPLICATION: None.ESTIMATED BLOOD LOSS: Less than 20 cc.VESSEL CATHETERIZED:1. Left subclavian artery.2. Left common carotid artery.3. Right common carotid artery.4. Right internal carotid artery.5. Right subclavian artery.VESSELS IMAGED:1. Frontal and lateral posterior fossa angiogram through left subclavianartery injection.2. Frontal and lateral left common carotid bifurcation angiogram throughleft common carotid injection.3. Frontal and lateral full cerebral angiogram through left common carotidartery injection.4. Frontal and lateral right common carotid artery angiogram through rightcommon carotid injection.5. Frontal and lateral posterior angiogram through right common carotid injection.6. Frontal angiogram of the right subclavian artery through rightsubclavian injection.7. Frontal and lateral posterior fossa angiogram through right subclavianartery injection.INDICATION FOR PROCEDURE: This is a 67-year-old male with asignificant medical history including obesity and multiple scleroticdisease prior lefthemispheric stroke and [facility] of [facility]-sided weakness and the patient now isobtunded is at the very difficult to arouse. Imaging study was obtained,suggestedpossible occlusion of the right internal carotid artery and the eithertotal or critical preocclusive stenosis at the right common carotidbifurcation/internal carotid artery. Cerebral angiography is beingperformed to further differentiate between these 2 possibilities and toproceed with a stenting procedure of the right common carotid bifurcationfelt feasible to increase the flow to the patient brain and henceincrease his chance of the use of meaningful recovery.PROCEDURE IN DETAIL: The patient was positioned laterally in supineposition. Both groins were prepped and draped in sterile fashion. Aftergiving the patient 10 cc of 2% lidocaine in the right groin access toright common femoral artery was obtained using micropuncture system.After serial dilatation, a 7-Bahamian shuttle sheath was advanced with itstip in descending thoracic aorta. The shuttle sheath was hooked up andheparinized saline flushed. Through the shuttle sheath, a 5- Bahamian [id number] catheter was advanced and selectively placed in the leftsubclavian artery. Frontal and lateral posterior fossa angiogram wasobtained. Diagnostic catheter was advanced in the left common carotidartery. Frontal and lateral left common carotid bifurcation angiogramwas obtained, followed by full cerebral angiography. Diagnostic catheterwas advanced in the right commoncarotid artery. Frontal and lateral right common carotid bifurcationangiogram was obtained, followed by full cerebral angiography.Diagnostic catheter was advanced in the right subclavian artery. Frontalangiogram of the rightsubclavian artery was obtained followed by posterior fossa angiogram.SUPERVISION AND INTERPRETATION: The frontal and lateral posteriorangiogram through the left carotid injection demonstrated normalintracranial circulation. 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.The posterior angiogram was obtained through left carotid injectiondemonstrated absence of any flow to intracranially either through theinternal carotid artery or different collaterals coming from the leftexternal carotid artery.The frontal and lateral right common carotid artery angiogram obtainedthrough right carotid injection demonstrated critical 95% to 98%preocclusive stenosis at the proximal right internal carotid artery justabove the common carotidbifurcation.The posterior fossa angiogram through the right common carotid arteryinjection demonstrated no evidence of intracranial abnormality in theright hemisphere.The frontal angiogram of the right subclavian artery obtained throughrightsubclavian artery injection sent normal vessel.The posterior fossa angiogram obtained throughout the carotid injectiondemonstrated normal posterior fossa circulation. The collateral bloodsupply is a coming to the left hemisphere.THERAPEUTIC INTERVENTION: Due to the fact the patient has already lostthe left common carotid artery and critical preocclusive stenosis at theright of the right common carotid bifurcation/internal carotid artery.We opted to proceed with stenting procedure to enhance the flow to thebrain and increase the patient chances of meaningful recovery andhopefully help to make him more arousable and perk up to by enhancing theflow to the brain.The 7-Bahamian shuttle sheath was placed one more time at the right commoncarotid artery over the 5-Bahamian JB1 diagnostic catheter. At this time,diagnosticcatheter was removed through the shuttle sheath and magnified roadmap wasobtained, centered over the right common carotid bifurcation. Then, a 5.5Accunet basket was navigated through the critical stenosis withoutdifficulty and deployed at the proximal intracranial right internalcarotid artery. Over the Accunet microwire, a Clarion balloon 2.5 mm x9 mm was advanced up to the criticalpreocclusive stenosis and the balloon was inflated up to nominal pressure. The balloon was then deflated and pulled back. An Accunet 6/8 x 40 mmwas advanced up to the level of the stenosis. The stent was deployed.However, upon deployment, the stent slightly moved forward and we missedthe common carotid bifurcation. The whole stent was internal carotidartery. At this time, the delivery catheter of the stent was removed marisol new stent 6-8 x 30 Acculink stent was placedoverlapping the 1st stent into the right common carotid artery. The stentwas deployed and the delivery catheter of the stent was removed. Then,over the Accunet microwire and a VA track balloon, 5.5 x 20 mm wasadvanced and placed at the level of the residual stenosis within thestent balloon. The balloon was inflated up to nominal pressure. Theballoon was then de-inflated and pulled back. Followup angiogram wasobtained through the guiding catheter. Thisdemonstrated perfect angiographic result without evidence of residualsignificant stenosis. No evidence of clot formation. At this time, thecapture catheter was advanced over the Accunet microwire and the basketwas captured and removed. Then, a followup angiogram was obtained throughthe guiding catheter through of the right hemisphere, demonstrated normalcirculation without evidence of missing branches to suggest embolicphenomena during the procedure. At this time, the guiding catheter wasremoved and adequate hemostasis was obtained using StarClose device.There was no evidence of immediate complications.IMPRESSION: The patient is status post successful cerebral angiographyandstenting of the right common carotid/internal carotid artery for criticalpreocclusive stenosis as discussed above.ADDENDUM: The posterior fossa angiogram obtained through the leftsubclavian artery injection demonstrates normal intracranial leftvertebral artery. The basilar artery and branches are normal. There echo good collateral supply feeding the right hemisphere. Findings arguefor the fact that the stenosis in the right common carotid/internalcarotid artery is hemodynamically significant.Anastasia Gambino MDNeurologyFA:modlRevised sjjohn 07/02/17D: 06/27/2017 14:31:31T: 06/27/2017 17:44:20Job #: [id number]:Lul Dupree MD* Elidia [facility] OPERATIVE NO HNO ID: [id number] thor: Anastasia GambinoService: NeurosurgeryAuthor Type: PhysicianType: Operative ReportFiled: 06/29/2017 12:24 PMNote Text:[facility] - Operative ReportSURGEON: ROMELIA AmadorATIENT NAME: LOC MCDOWELL MMRN: [id number] CSN: [id number] OF SURGERY: 06/24/2017DATE OF : 1950 SEX/AGE: M/67PATIENT TYPE: I HOSP SVC: NEUR LOCATION: [id number] OF SURGERY: 06/24/2017SURGEON: ROMELIA AmadorROCEDURE: Cerebral angiography and stenting of the right commoncarotid/internal carotid artery.The patient time on table is 3 p.m.The patient off the table is 4:30 p.m.CONSENT: Consent form obtained from the patient's brother over the phone. The patient is obtunded and unable to give consent.COMPLICATION: None.ESTIMATED BLOOD LOSS: Less than 20 cc.VESSEL CATHETERIZED:1. Left subclavian artery.2. Left common carotid artery.3. Right common carotid artery.4. Right internal carotid artery.5. Right subclavian artery.VESSELS IMAGED:1. Frontal and lateral posterior fossa angiogram through left subclavianartery injection.2. Frontal and lateral left common carotid bifurcation angiogram throughleft common carotid injection.3. Frontal and lateral full cerebral angiogram through left common carotidartery injection.4. Frontal and lateral right common carotid artery angiogram through rightcommon carotid injection.5. Frontal and lateral posterior angiogram through right common carotid injection.6. Frontal angiogram of the right subclavian artery through rightsubclavian injection.7. Frontal and lateral posterior fossa angiogram through right subclavianartery injection.INDICATION FOR PROCEDURE: This is a 67-year-old male with asignificant medical history including obesity and multiple scleroticdisease prior lefthemispheric stroke and [facility] of [facility]-sided weakness and the patient now isobtunded is at the very difficult to arouse. Imaging study was obtained,suggestedpossible occlusion of the right internal carotid artery and the eithertotal or critical preocclusive stenosis at the right common carotidbifurcation/internal carotid artery. Cerebral angiography is beingperformed to further differentiate between these 2 possibilities and toproceed with a stenting procedure of the right common carotid bifurcationfelt feasible to increase the flow to the patient brain and henceincrease his chance of the use of meaningful recovery.PROCEDURE IN DETAIL: The patient was positioned laterally in supineposition. Both groins were prepped and draped in sterile fashion. Aftergiving the patient 10 cc of 2% lidocaine in the right groin access toright common femoral artery was obtained using micropuncture system.After serial dilatation, a 7-Bahamian shuttle sheath was advanced with itstip in descending thoracic aorta. The shuttle sheath was hooked up andheparinized saline flushed. Through the shuttle sheath, a 5- Bahamian [id number] catheter was advanced and selectively placed in the leftsubclavian artery. Frontal and lateral posterior fossa angiogram wasobtained. Diagnostic catheter was advanced in the left common carotidartery. Frontal and lateral left common carotid bifurcation angiogramwas obtained, followed by full cerebral angiography. Diagnostic catheterwas advanced in the right commoncarotid artery. Frontal and lateral right common carotid bifurcationangiogram was obtained, followed by full cerebral angiography.Diagnostic catheter was advanced in the right subclavian artery. Frontalangiogram of the rightsubclavian artery was obtained followed by posterior fossa angiogram.SUPERVISION AND INTERPRETATION: The frontal and lateral posteriorangiogram through the left carotid injection demonstrated normalintracranial circulation. 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.The posterior angiogram was obtained through left carotid injectiondemonstrated absence of any flow to intracranially either through theinternal carotid artery or different collaterals coming from the leftexternal carotid artery.The frontal and lateral right common carotid artery angiogram obtainedthrough right carotid injection demonstrated critical 95% to 98%preocclusive stenosis at the proximal right internal carotid artery justabove the common carotidbifurcation.The posterior fossa angiogram through the right common carotid arteryinjection demonstrated no evidence of intracranial abnormality in theright hemisphere.The frontal angiogram of the right subclavian artery obtained throughrightsubclavian artery injection sent normal vessel.The posterior fossa angiogram obtained throughout the carotid injectiondemonstrated normal posterior fossa circulation. The collateral bloodsupply is a coming to the left hemisphere.THERAPEUTIC INTERVENTION: Due to the fact the patient has already lostthe left common carotid artery and critical preocclusive stenosis at theright of the right common carotid bifurcation/internal carotid artery.We opted to proceed with stenting procedure to enhance the flow to thebrain and increase the patient chances of meaningful recovery andhopefully help to make him more arousable and perk up to by enhancing theflow to the brain.The 7-Bahamian shuttle sheath was placed one more time at the right commoncarotid artery over the 5-Bahamian JB1 diagnostic catheter. At this time,diagnosticcatheter was removed through the shuttle sheath and magnified roadmap wasobtained, centered over the right common carotid bifurcation. Then, a 5.5Accunet basket was navigated through the critical stenosis withoutdifficulty and deployed at the proximal intracranial right internalcarotid artery. Over the Accunet microwire, a Clarion balloon 2.5 mm x9 mm was advanced up to the criticalpreocclusive stenosis and the balloon was inflated up to nominal pressure. The balloon was then deflated and pulled back. An Accunet 6/8 x 40 mmwas advanced up to the level of the stenosis. The stent was deployed.However, upon deployment, the stent slightly moved forward and we missedthe common carotid bifurcation. The whole stent was internal carotidartery. At this time, the delivery catheter of the stent was removed marisol new stent 6-8 x 30 Acculink stent was placedoverlapping the 1st stent into the right common carotid artery. The stentwas deployed and the delivery catheter of the stent was removed. Then,over the Accunet microwire and a VA track balloon, 5.5 x 20 mm wasadvanced and placed at the level of the residual stenosis within thestent balloon. The balloon was inflated up to nominal pressure. Theballoon was then de-inflated and pulled back. Followup angiogram wasobtained through the guiding catheter. Thisdemonstrated perfect angiographic result without evidence of residualsignificant stenosis. No evidence of clot formation. At this time, thecapture catheter was advanced over the Accunet microwire and the basketwas captured and removed. Then, a followup angiogram was obtained throughthe guiding catheter through of the right hemisphere, demonstrated normalcirculation without evidence of missing branches to suggest embolicphenomena during the procedure. At this time, the guiding catheter wasremoved and adequate hemostasis was obtained using StarClose device.There was no evidence of immediate complications.IMPRESSION: The patient is status post successful cerebral angiographyandstenting of the right common carotid/internal carotid artery for criticalpreocclusive stenosis as discussed above.Anastasia Gambino MDNeurologyFA:modlD: 06/27/2017 14:31:31T: 06/27/2017 17:44:20Job #: [id number]:Lul Dupree MD* Elidia Greer Normal [facility] PROGRESSon 06-27-2017 PROGRESS HNO ID: [id number] thor: Lul Romeroervice: NeurologyAuthor Type: PhysicianType: Progress NotesFiled: 06/27/2017 11:16 AMNote Text:Neurointensive CarePt seen and examined, labs/vitals/imaging reviewed.Remains stable from neurologic and respiratory standpoint.Afebrile. To complete course of ceftriaxone today. WBC elevated ?on thebasis of recent steroids for vocal cord edema. Glucose improved.Transfer to floor today. Accepted by Sound.Lul Dupree MD11:16 AMFebruary 2017 Normal [facility] Phosphorus Bloodon 8 Phosphate 2.4 mg/dL Low 2.5-4.9 [facility] Comment on above: Performed By: #### L IPD2 ####[facility] [place] [address] ALLIED HEALTHon 06-26-2017 ALLIED HEALTH HNO ID: [id number] thor: Collin Abreu (Chaplain)ice: Spiritual CareAuthor Type: ChaplainType: Allied HealthFiled: 06/26/2017 1:51 PMNote Text: SPIRITUALCARESpiritual Care Visit- Brief NoteName: Loc McleanRN: [id number]: June 26, 2017Notes: Provided SC to pt through visit and prayer. Through verbalcommunication difficult to pt, was vocally engaged while almond huller prayed,and was able to express appreciation. Offered future SC as needed. Chaplain Signature: Alejandro Abreu contact the Spiritual Care Department:Please call [phone] or Page the On-Call Funeral Pre Need Consultant at pager [phone] you for the opportunity to be of service.This is an electronically created document.IF PRINTED, PLEASE DO NOT REMOVE FROM THE CHART OR MODIFY PRINTED COPY. Normal [facility] Basic Panelon 06-26-2017 Creatinine 0.52 mg/dL Low 0.67-1.17 [facility] Comment on above: Performed By: #### C BC1 ####[place] [address] Anion gap 10 mmol/L Normal 8-16 [facility] Comment on above: Performed By: #### C BC1 ####[address] [address] CO2 24 mmol/L Normal 21-32 [facility] Comment on above: Performed By: #### C BC1 ####[facility] [place], [place] [address] Glucose mass conc 202 mg/dL High 70-99 [facility] Comment on above: Performed By: #### C BC1 ####[facility] [place], [place] [address] Urea nitrogen 9 mg/dL Normal 7-18 [facility] Comment on above: Performed By: #### C BC1 ####[facility] [place], [place] [address] Calcium 8.0 mg/dL Low 8.5-10.1 [facility] Comment on above: Performed By: #### C BC1 ####[place] [address] Chloride 111 mmol/L High 98-107 [facility] Comment on above: Performed By: #### C BC1 ####[address] [address] Potassium molar conc 3.7 mmol/L Normal 3.5-5.1 [facility] Comment on above: Performed By: #### C BC1 ####[address] [address] Sodium 141 mmol/L Normal 136-145 [facility] Comment on above: Performed By: #### C BC1 ####[address] [address] CASE MANAGEMon 06-26-2017 CASE MANAGEM HNO ID: [id number] Author: Abi (Specialist) Melisa Service: (none) Author Type: (none) Type: Care Mgt Progress Note Filed: 06/26/2017 9:39 AM Note Text: Updates sent to [facility] Glucose Meteron 06-26-2017 Glucose mass conc 209 mg/dL High 70-99 [facility] Comment on above: Result Comment: EVITA Lujan OTIFIED Performed By: #### C BC1 ####[address] [address] Glucose mass conc 189 mg/dL High 70-99 [facility] Comment on above: Result Comment: EVITA Lujan OTIFIED Performed By: #### C BC1 ####[address] [address] Glucose mass conc 217 mg/dL High 70-99 [facility] Comment on above: Result Comment: EVITA Lujan OTIFIED Performed By: #### G LMET ####[address] [address] Glucose mass conc 202 mg/dL High 70-99 [facility] Comment on above: Result Comment: EVITA Lujan OTIFIED Performed By: #### G LMET ####[place] [address] Hemogramon 06-26-2017 Erythrocyte distribution width Auto Ratio (RBC) 13.2 % Normal 11.6-14.4 [facility] Comment on above: Performed By: #### C BC1 ####[address] [address] Erythrocytes (RBC) 3.56 mil/cmm Low 4.63-6.08 [facility] Comment on above: Performed By: #### C BC1 ####[place] [address] Hematocrit (HCT) 33.2 % Low 40.1-51.0 [facility] Comment on above: Performed By: #### C BC1 ####[place] [address] Hemoglobin mass conc (Bld) 10.9 g/dL Low 13.7-17.5 [facility] Comment on above: Performed By: #### C BC1 ####[place] [address] MCH 30.6 pg Normal 25.7-32.2 [facility] Comment on above: Performed By: #### C BC1 ####[place] [address] MCHC mass conc (RBC) 32.8 % Normal 32.3-36.5 [facility] Comment on above: Performed By: #### C BC1 ####[place] [address] MCV 93.3 fL Normal 83.2-95.6 [facility] Comment on above: Performed By: #### C BC1 ####[place] [address] Platelet mean volume (PMV) 10.4 fL Normal 8.7-12.0 [facility] Comment on above: Performed By: #### C BC1 ####[place] [address] Platelets 217 thou/cmm Normal 141-365 [facility] Comment on above: Performed By: #### C BC1 ####[place] [address] RDW SD 45.0 fl Normal 36.1-45.8 [facility] Comment on above: Performed By: #### C BC1 ####[place] [address] WBC (Leukocytes) 8.72 thou/cmm Normal 4.23-9.07 [facility] Comment on above: Performed By: #### C BC1 ####[facility] [place], [place] [address] MDRD GFRon 06-26-2017 eGFR (non-black) mL/min/{1.73_m2} Normal >60mL/m in/ 1.73m2 [facility] Comment on above: Result Comment: If t he patient is , multiply the result by 1.210. Performed By: #### C BC1 ####[facility] [place], [place] [address] Magnesium Bloodon 06-26-2017 Magnesium 2.2 mg/dL Normal 1.6-2.6 [facility] Comment on above: Performed By: #### C BC1 ####[address] [address] NURSING PROGon 06-26-2017 NURSING PROG HNO ID: [id number] thor: Lilly (Rn) GARCIA Wongervice: (none)Author Type: Registered NurseType: Nursing Progress NoteFiled: 06/26/2017 1:26 AMNote Text: Nursing Progress: Topic: RESTRAINT NON-VIOLENTPATIENT NAME: Loc McleanRN: [id number] LOCATION: [place] [address]/[place] [address]*The patient demonstrates Attempting to Remove Medical Devices Vital toMedical Stability, Impulsive Behavior, Inability to be Redirected asevidenced by the following behaviors attempting to reach for oett,inability to follow directions which pose an imminent danger to self orothers.The following interventions were attempted but were not effective inprotecting the patient's safety: Alarms, Bed in Low/Locked Position, CallLight Within Reach, Medications Reviewed, Modify Environment, ModifyEquipment, Frequent Observation, Pain/Discomfort Relief, Re-OrientationMethodsNext, a comprehensive assessment was performed and warranted placing thepatient in Soft Bilateral Wrists, the least restrictive restraint neededto protect the patient's safety.Ongoing safety assessments and evaluation for earliest removal ofrestraints will be performed.DATE: June 26, 2017TIME: 1:25 Rosalind Wong RN [facility] PROGRESSon 06-26-2017 PROGRESS HNO ID: [id number] thor: Nancy (Rn) GARCIA Obrienervice: HospiceAuthor Type: Registered NurseType: Progress NotesFiled: 06/26/2017 3:09 PMNote Text:HISTORICAL SITE GUIDE NOTESERVICE DATE: 06/26/2017SERVICE TIME: 1450Hospice:Met With: Brother(s)Discussed: Hospice philosophy, Benefits, Services, Comfort Measures andProvider choicesReviewed: OOP expense for 24 hour care at home with hospice, OOP expensefor Room and Board at SNF with hospice, Education materials/brochures andContact informationFamily In Agreement with Discharge Plan: naHospice Provider Choice: naDischarge: naFamily Notified of Discharge Arrangements: naNotified of Discharge Plan: naDate of Discharge: naTime of Discharge: naConsult received from Dr. Dupree. Chart reviewed.PMH: Prior hx of CVA, 2/2 R hemeparesis, PEG, Global aphasia, [facility] Presents with change in mentalstatus with R gaze deviation. Work up reveals Complete occlusion of theLICA from its origin with short segment high grade stenosis vs occlusionat the R ICA origin. Acute hypoxic respiratory failure requiringintubation. S/p stenting R CCA/ICA. Extubated today.Met with brother Mary Kate who is the legal guardian. Discussed all aspects ofhospice services.Brother states he is encouraged by the recovery overnight, as patient ismore responsive, able to verbalize a few words.Discussed the differences between palliative and hospice services.With the improvement that the brother has seen, at this time he requestsPalliative services at [facility] at Discharge.If Patient were to decline, the goal would be to transition frompalliative to hospice.Reviewed palliative provider choice. Brother requests [facility] [place] to follow patient at [facility].PLAN: No Hospice [facility] [place]SIGNATURE: Nancy Obrien RN PATIENT NAME: Loc Fox ReberDATE: June 26, 2017 : 2:50 PM [facility] PROGRESS HNO ID: [id number] thor: Lul Romeroervice: NeurologyAuthor Type: PhysicianType: Progress NotesFiled: 06/26/2017 3:06 PMNote Text:NEURO ICU - PROGRESS NOTESERVICE DATE: 06/26/2017SERVICE TIME: 955AMPt is being extubated, attempts to speak but it is inaudible. Patient isfollowing commands intermittently.ObjectiveDETAI LED REVIEWVITAL SIGNS (last 24hrs min/max):Temp Av.4 ?C (97.5 ?F) Min: 35.8 ?C (96.4 ?F) Max: 36.8 ?C (98.2?F)Pulse Av.2 Min: 44 Max: 68Cuff BP Min: 88/47 Max: 154/59Resp Av.8 Min: 13 Max: 19SpO2 Av.3 % Min: 93 % Max: 100 %No Data RecordedNo Data RecordedNo Data RecordedNo Data RecordedNo Data RecordedPain Score: 0/10INTAKE/OUTPUT:Intake/Outp ut Summary (Last 24 hours) at 06/26/17 1431Last data filed at 06/26/17 0800 Gross per 24 hourIntake 2621 mlOutput 1485 mlNet 1136 mlCSF: N/AMIVF: NS - Rate: 75ml/hrPO/TF: PegFREE WATER: N/ABM: Has the patient had a BM in the last 24 hours? YesPHYSICAL EXAM AND PERTINENT DATANeuro: Patient was just extubated, unable to answer questions aboutorientation but it alert. Tracks with eyes. Spontaneously moving alllimbs.CV: Regular rate and rhythm.Pulm: Rales and rhonchi still heard on bases of lungs BL but more on theleft side.GI/: Soft, non tender.Skin/Extremities: Edema- No Peripheral pulses- Present all extremitiesWounds/Drsgs- No Breakdown- NoCurrent Facility-Administered Medications:Insulin NPH human 5 Units injection pen (intermediate acting) ( NovoLIN N,HumuLIN N) 5 Units SUBCUTANEOUS q 8 HChlorhexidine Gluconate 0.12 % 15 mL (PERIDEX) 15 mL ORAL q 12 Haspirin 81 mg chewable tab(s) 81 mg PEG DAILYatorvastatin 80 mg tab(s) (LIPITOR) 80 mg PEG AT BEDTIMEclopidogrel 75 mg tab(s) (PLAVIX) 75 mg PEG DAILYdocusate sodium oral liquid 100 mg/10 mL (DIOCTO,COLACE) 100 mg PEG BIDlevETIRAcetam 1,000 mg oral liquid (KEPPRA) 1,000 mg PEG BIDacetaminophen 650 mg tab(s) (TYLENOL) 650 mg PEG q 4 H PRNpotassium chloride 80-120 mEq oral liquid 80-120 mEq PEG PRNenoxaparin 40 mg injection (LOVENOX) 40 mg SUBCUTANEOUS q 24 HRfamotidine 20 mg tab(s) (PEPCID) 20 mg PEG BIDoxyCODONE IR 5-10 mg tab(s) (ROXICODONE) 5-10 mg PEG q 6 H PRNgabapentin 300 mg cap(s) (NEURONTIN) 300 mg PEG q 8 HhydrALAZINE 10-20 mg injection (APRESOLINE) 10-20 mg INTRAVENOUS q 6 H PRNpotassium chloride iv piggyback 20 mEq in sterile water 100 mL 60-120 mEqINTRAVENOUS PRNmagnesium sulfate in water 2 g in sterile water 50 ml 2 g INTRAVENOUS PRNsodium phosphate 45 mmol in NaCl 0.9% 250 mL 45 mmol INTRAVENOUS PRNcalcium gluconate 4 g in NaCl 0.9% 250 mL 4 g INTRAVENOUS PRNmetoprolol 5 mg injection (LOPRESSOR) 5 mg INTRAVENOUS q 4 H PRNpropofol infusion (DIPRIVAN) 5-50 mcg/kg/min INTRAVENOUS CONTINUOUSipratropium-albuter ol 3 mL nebulizer solution (DUONEB) 3 mL INHALATION q 4H PRNNaCl 0.9% iv infusion 75 mL/hr INTRAVENOUS CONTINUOUSondansetron (PF) 4 mg injection (ZOFRAN) 4 mg INTRAVENOUS q 6 H PRNcefTRIAXone iv piggyback 1 g in dextrose (iso-osmotic) 50 mL (ROCEPHIN) 1g INTRAVENOUS q 24 Hdextrose 40 % 15 g (INSTA-GLUCOSE) 15 g ORAL PRNOrglucagon 1 mg injection (GLUCAGEN) 1 mg INTRAMUSCULAR PRNOrdextrose 50% in water 25 mL syringe 12.5 g INTRAVENOUS PRNinsulin regular human injection (short acting) (NovoLIN R,HumuLIN R)SUBCUTANEOUS q 6 Hperflutren lipid microspheres 1.1 mg/mL 1.3 mL injection (DEFINITY) 1.3 mLINTRAVENOUS DIRECTED PRNLABS: CBC, Coags, BMP, Mg, PhosRecent Labs 06/25/1803WBC 8.72 11.05* 11.75*HB 10.9* 11.3* 14.5HCT 33.2* 33.4* 42.3PLT 217 229 256NA 141 142 137K 3.7 3.7 3.4*CHLOR 111* 111* 102CO2 24 24 28BUN 9 8 5*CREAT 0.52* 0.73 0.52*GLUC 202* 127* 121*CA 8.0* 7.8* 8.8MG 2.2 1.6 1.8P 2.0* 3.3 3.0DATA:Diagnostic tests reviewed for today's visit:Most recent labs and imaging results.Chest Xray:IMPRESSION: ?1. ?Interval decrease in lung volumes.?2. ?Continued left pleural effusion and left basilaratelectasis/infiltrate slightly increased from prior study.?3. ?Tubes and lines as described above without evidence of pneumothorax.?4. ?Otherwise no interval change.Assessment/PlanCHIEF COMPLAINT: encephalopathy, acute strokeICU Admission Date: 06/23/17Principle Diagnosis and Comorbidities: acute bilateral hemispheric stroke,chronic L MCA stroke 01/25, LICA occlusion, PAD, HTN, dyslipidemia, DM, UTIActive Consults: n/aHISTORY OF PRESENT ILLNESS: Loc Mcdowell is a 67 year old right-handedmale with past medical history significant for L MCA stroke due to L ICAocclusion in 01/25, presently living in care home with flaccid Rhemiparesis and global aphasia, chronic PEG, who was found on 06/22 withAMS. Reportedly the pt usually is somewhat interactive and on 06/22 he wasunresponsive with R gaze deviation. He was brought to [facility] ED and dx withUTI, admitted for workup and monitoring; MRI done for workup ofencephalopathy showed unexpectedly bilateral hemispheric strokes. CTAshowed complete occlusion of the L ICA from its origin with short segmenthigh grade stenosis vs occlusion at the R ICA origin. Some L sided limbshaking was seen and the pt was started empirically on Keppra. [facility].HOSPITAL COURSE: Pt arrived in 3202 in good condition, no acute distress,no adverse events so far.24 HOUR EVENTS: n/aMEDICAL EVENTS: No medical events have been recorded.PLAN:Neuro:Stroke Etiology Work Up: Imaging: None today Blood Tests: Other Studies: EEG orderedStroke Management: Endovascular/Surgical Intervention: Await MRI results. Dr Moyersulted for possible angiogram. ICP Management: n/aStroke Prevention: Maintain SBP<220 C/w ASA and Plavix (outpt meds)Cardiovascular: BP Management: Permissive HTNPulmonary: Elevated HOB Intubated after respiratory failure and hypoxemiaRenal/Electrolytes: Mckeon Present: Yes, due to immobility and need for strict I/O IV Fluids: NS @ 75 ml/hrGI/Nutrition Swallow Assessment: Complete prior to diet Dysphagia Screen: Not applicable GI Prophylaxis: Not indicated Current Diet:Orders Placed This Encounter DIET NPOEndo: Glucose Controlled: YesInfectious Disease: Antibiotics: started on ceftriaxone for GNB in urine 06/22Heme/VTE: Calf SCD'sSkin/Extremities: No skin ulcers present.Lines/Access: R AC, L ACRecovery and Disposition: Will order OOB and therapies after 24 hours.PATIENT CHECKLIST? Are restraints necessary: No? VTE prophylaxis administered: Yes. Mechanical- Yes. Pharmacological-Yes.? On sedation: No? Patient on ventilatory support: No? Central line or arterial line present: No? Mckeon present: Yes. Able to D/C: No, close I/O monitoringPLAN--Extubated to day. Close neuro monitoring. Patient is protecting airway.Cont antibiotic for UTI. WBC count down 11.05--> 8.72. Daily CBC and BMP.Chest xray reveal slight increase in infiltrate.PERSONAL INVOLVEMENT IN CARE: Reviewing initiation, responses andadjustments to therapies, coordination of care, and updating updatingfamily with Staff Physician, Dr. Lul Dupree.SIGNATURE: JEAN JOHN PA-C PATIENT NAME: Loc GraysonerDATE: June 26, 2017 : 2:31 PM PAGER/CONTACT #: [phone] STAFF ADDENDElzbieta Dupree MDExtubated this am after reassuring SBT and positive leak. Pt is nowprotecting airway, oxygenating and ventilating well, and is attempting tophonate. He appears to be at neurologic baseline. Will monitor forrespiratory decompensation in NSICU.PERSONAL INVOLVEMENT IN CARE:??Patient/Family Updated: Patient and/or family were updated regarding thegoals of care,?medical plan for the day, sephora operations consultant recommendations,medical disposition and current medical condition/prognosis as and ifclinically indicated. All questions and concerns were answered andaddressed at this juncture. I agree with the resident MD note as above,except as otherwise indicated; my additional comments, if necessary, arein bold.?This patient has a high probability of sudden, clinically significantdeterioration, which requires the highest level of physician preparednessto intervene urgently. I managed/supervised life or organ supportinginterventions that required frequent physician assessment. I devoted myfull attention to the direct care of this patient for the amount of timeindicated below. Time I spent with family or surrogate(s) is includedonly if the patient was incapable of providing the necessary informationor participating in medical decision making. Time devoted to teaching andto any procedures I billed separately is not included.?Critical Care Documentation: The patient has the following organ/systemimpairment(s): As aboveTime spent providing critical care services: 38 minutes.?SIGNATURE: Lul Dupree MD PATIENT NAME: Loc McdowellDATE: 06/26/17 : 3:02 PM PAGER/CONTACT #: [phone] [facility] PROGRESS HNO ID: [id number] thor: Paula Huerta: Critical CareAuthor Type: PhysicianType: Progress NotesFiled: 06/26/2017 11:33 AMNote Text:MICU PROGRESS NOTESERVICE DATE: 06/26/2017SERVICE TIME: 1030Admission Date: 06/23/2017Day #: 3 in NSCUSubjective F/U acute hypoxic RF. Uneventful night. He has an air leakwith weaning parameters.This is a 67 year old with PMH of prior CVAs. Resides in a nursing home2/2 right hemeparesis/ chronic PEG. Admitted last night 2/2 acuteencephalopathy, decreased mentation. Found to have right CCA/ICAocclusion. [facility] the evening of [facility] and underwent stenting ofRight CCA. After coming [facility] [place] [facility] he had to be intubated for airwayprotection. He was a difficult intubation.ObjectiveVITAL SIGNS (last 24hrs min/max):Temp Av.4 ?C (97.5 ?F) Min: 35.8 ?C (96.4 ?F) Max: 36.8 ?C (98.2?F)Pulse Av.7 Min: 44 Max: 68No Data RecordedCuff BP Min: 77/45 Max: 154/59Pain Score: 0/10Vital signs reviewed. Relevant comments-NET FLUID BALANCEIntake/Output Summary (Last 24 hours) at 06/26/17 1116Last data filed at 06/26/17 0800 Gross per 24 hourIntake 3238 mlOutput 1685 mlNet 1553 mlMEDICATIONSCurrent Facility-Administered Medications:Insulin NPH human 5 Units injection pen (intermediate acting) ( NovoLIN N,HumuLIN N) 5 Units SUBCUTANEOUS q 8 HChlorhexidine Gluconate 0.12 % 15 mL (PERIDEX) 15 mL ORAL q 12 Haspirin 81 mg chewable tab(s) 81 mg PEG DAILYatorvastatin 80 mg tab(s) (LIPITOR) 80 mg PEG AT BEDTIMEclopidogrel 75 mg tab(s) (PLAVIX) 75 mg PEG DAILYdocusate sodium oral liquid 100 mg/10 mL (DIOCTO,COLACE) 100 mg PEG BIDlevETIRAcetam 1,000 mg oral liquid (KEPPRA) 1,000 mg PEG BIDacetaminophen 650 mg tab(s) (TYLENOL) 650 mg PEG q 4 H PRNpotassium chloride 80-120 mEq oral liquid 80-120 mEq PEG PRNenoxaparin 40 mg injection (LOVENOX) 40 mg SUBCUTANEOUS q 24 HRfamotidine 20 mg tab(s) (PEPCID) 20 mg PEG BIDoxyCODONE IR 5-10 mg tab(s) (ROXICODONE) 5-10 mg PEG q 6 H PRNgabapentin 300 mg cap(s) (NEURONTIN) 300 mg PEG q 8 HhydrALAZINE 10-20 mg injection (APRESOLINE) 10-20 mg INTRAVENOUS q 6 H PRNdexamethasone sodium phosphate 4 mg injection (DECADRON) 4 mg INTRAVENOUSq 6 Hpotassium chloride iv piggyback 20 mEq in sterile water 100 mL 60-120 mEqINTRAVENOUS PRNmagnesium sulfate in water 2 g in sterile water 50 ml 2 g INTRAVENOUS PRNsodium phosphate 45 mmol in NaCl 0.9% 250 mL 45 mmol INTRAVENOUS PRNcalcium gluconate 4 g in NaCl 0.9% 250 mL 4 g INTRAVENOUS PRNmetoprolol 5 mg injection (LOPRESSOR) 5 mg INTRAVENOUS q 4 H PRNpropofol infusion (DIPRIVAN) 5-50 mcg/kg/min INTRAVENOUS CONTINUOUSipratropium-albuter ol 3 mL nebulizer solution (DUONEB) 3 mL INHALATION q 4H PRNNaCl 0.9% iv infusion 75 mL/hr INTRAVENOUS CONTINUOUSondansetron (PF) 4 mg injection (ZOFRAN) 4 mg INTRAVENOUS q 6 H PRNcefTRIAXone iv piggyback 1 g in dextrose (iso-osmotic) 50 mL (ROCEPHIN) 1g INTRAVENOUS q 24 Hdextrose 40 % 15 g (INSTA-GLUCOSE) 15 g ORAL PRNOrglucagon 1 mg injection (GLUCAGEN) 1 mg INTRAMUSCULAR PRNOrdextrose 50% in water 25 mL syringe 12.5 g INTRAVENOUS PRNinsulin regular human injection (short acting) (NovoLIN R,HumuLIN R)SUBCUTANEOUS q 6 Hperflutren lipid microspheres 1.1 mg/mL 1.3 mL injection (DEFINITY) 1.3 mLINTRAVENOUS DIRECTED PRNINDWELLING CATHETERS:Lines, Drains, and Airways Line Peripheral Admission to [facility] Short Left Hand 22 Gauge -- days Peripheral 06/23/17 1353 Short Right Forearm 20 Gauge 2 days Peripheral 06/25/17 0400 Short Left Forearm 20 Gauge 1 day Drain GI Feed/Drain Admission to [facility] Gastrostomy Left Upper QuadrantAbdomen -- days Indwelling Urinary Catheter 06/24/17 0947 Mckeon 16 Fr 2 days Airway Airway Endotracheal Tube 06/24/170 1 dayPHYSICAL EXAM:Physical exam performedPHYSICAL EXAM:Physical exam performedGENERAL: 67yo WM, looks older than his age. Chronically ill appearing.Awake. Looking around. Was able to say Hi but otherwise oriented x0.HEART: RRRLUNGS: CTAABD; Soft, NT, ND, PEG in place. Site is C/D/IEXT: - C/C/EGU: mckeon with small clear yellow urine.NEURO: . Moves LLE spontaneously. Does not move RUE.SBT completed x 1 hr. Pt tolerated well. On CPAP PS 5 PEEP 5. Weaningparameters completed.MV 7.7VT 520RR 18RSBI 28VC unableNIF -20 (pt locked out)+ audible leak but unable to measure due to pt continuously coughing whencuff deflatedDATA:Diagnostic tests reviewed for today's visit:Most recent labs and imaging results.LABS: CBC, Coags, BMP, Mg, PhosRecent Labs 06/25/1803WBC 8.72 11.05* 11.75*HB 10.9* 11.3* 14.5HCT 33.2* 33.4* 42.3PLT 217 229 256NA 141 142 137K 3.7 3.7 3.4*CHLOR 111* 111* 102CO2 24 24 28BUN 9 8 5*CREAT 0.52* 0.73 0.52*GLUC 202* 127* 121*CA 8.0* 7.8* 8.8MG 2.2 1.6 1.8P 2.0* 3.3 3.0ABGsCULTURES: NACXR FINDINGS: 06/25/2017 reviewed.OTHER IMAGING:IMPRESSION:1. Acute hypoxic respiratory failure:2. New Bilateral hemispheric CVA3. S/p stenting Right CCA/ICA4. Difficult intubation5. UTI6. Dysphagia, pt has PEG.7. PAD, prior hx of aorto-bifem bypass8. DM-2PLANS FOR TODAY:Pt extubated now. No stridor.Continue TF's via PEG.Continue supportive care.Bilateral CVA's per neuro-critical.On Ceftriaxone for UTI.D/C Decadron.If worsens consider comfort care.Will S/O but please call if needed any further pulmonary/CC help.SIGNATURE: Paula Diego MD PATIENT NAME: Loc McdowellDATE: June 26, 2017 : 11:16 AM PAGER/CONTACT #: [phone] [facility] Phosphorus Bloodon 8 Phosphate 2.0 mg/dL Low 2.5-4.9 [facility] Comment on above: Performed By: #### C BC1 ####[address] [address] THERAPY NTon 06-26-2017 THERAPY NT HNO ID: [id number] thor: Vanna (Ccc-Vulcanizing Press Operator) Sebastian CCC/SLPService: Speech/SwallowAuthor Type: Speech Language PathologistType: Therapy (PT/OT/Speech/Resp)Filed: 06/26/2017 2:47 PMNote Text:Speech Therapy Clinical Swallow EvaluationSERVICE DATE: 06/26/2017SERVICE TIME: 1410 to 1425ROOM: [id number] Recommendations:See swallow guide posted in patients roomReinforce use of swallowing strategiesDiet Recommendations:NPO with alternative means of nutrition/hydration/medicatio nInstrumental Swallow Assessment Recommendations: Fiberoptic EndoscopicEvaluation of Swallowing (FEES) to be completed Thursday as ableResults and Recommendations Discussed With: Patient;Nurse;FamilyRecommend ed Discharge Disposition: Subacute/SNFJustification For Post Acute Needs: Willing to participate;Need forassistance may exceed support available;Medically complex;Good sittingtolerance;Good family supportIMPRESSION:Patient demonstrates moderate-severe oral-pharyngeal dysphagia which isnegatively impacting his/her ability to effectively maintain adequatenutrition and hydration and/or airway safety.Rehabilitation Precautions: Aspiration Precautions;Dysphagia;Cogniti veLinguistics Deficits;NPONPO Precautions: PEGASSESSMENT:- Patient in bed upon arrival, family present- Patient is nonverbal at baseline, says a few words/sounds- Alert and able to participate- Trialed thin via spoon: change in vocal quality noted- Trialed nectar-thick liquid via straw: throat clear noted- Trialed puree: no overt signs or symptoms of aspiration- Unable to self feed- Per family: patient on PEG + Puree/NTL at [facility]- Patient would benefit from FEES testing to evaluate safety of dietTolerated Full SessionGoals for Plan of Care:Swallow Goals:Patient will participate in a Fiberoptic Endoscopic Evaluation ofSwallowing (FEES) to thoroughly evaluate the oral and pharyngeal phase ofthe swallow, which cannot be substantiated through a clinical swallowingevaluation only. Through further diagnostic testing a definitivediagnosis/identific ation of the patient's current swallowing function andrecommended treatment plan can be established.Patient will participate in Speech-Language, Cognitive evaluation tofurther assess cognitive abilities to facilitate progress in therapy.Patient /Caregiver Goals: Eat/Drink Without RestrictionsRehab Potential: GoodPLAN:Treatment Frequency (times per week): 3 Current admissionTreatment Interventions: Dysphagia ManagementPlan of Care Developed with: FamilyTREATMENT INTERVENTIONS:Therapy Diagnosis: Dysphagia, oropharyngeal phaseInterventions Provided: Clinical Swallow Evaluation (27177)$ Clinical Swallow Evaluation (71566) Billed Units: 1 unitTotal Treatment Time (minutes): 15FUNCTIONAL G CODE:G Code Functional Limitations: Swallowing (06/26/17 1410)Swallow Current Status (G8996): CN (06/26/17 1410)Swallow Goal Status (G8997): CM (06/26/17 1410)Based on clinical assessment and the score on the Functional CommunicationMeasure (FCM), the G code and corresponding severity modifiers aredocumented above.SUBJECTIVE:Current Hospital Course: Chart reviewedPast Medical History:PAST MEDICAL HISTORYDiagnosis Date- ALCOHOL ABUSE 10/29/2006- Difficult airway 06/21/2013 Grade III- HTN (hypertension)- PAD (peripheral artery disease) (HCC)- Peripheral vascular disease with claudication (HCC)- Stress hyperglycemia 06/21/2013 06/22/2013 Glucoses 160 on arrival to ICU Was started on RHI gtt perprotocol and converted to Lantus and SSI. 06/23/2013 Check [id number]- Tobacco use disorder 10/29/2006Diagnosis:Carotid artery, internal, occlusion, bilateralReason for consult:Assess swallow s/o extubationPatient Report: HiHome EnvironmentPrior Functional Level: Required AssistancePrior Swallowing Function/Diet Textures: Dysphagia Level 1 (Pureed);NectarThick Liquids (+ PEG)Please see discipline specific clinical documentation flowsheet forcomplete details for this therapy evaluation/treatment.AVNI Sanchez: Vanna Cortes, [facility]-CLINICAL SERVICES DIRECTOR PATIENT NAME: Loc Mcdowell ()DATE: June 26, 2017 : 2:43 PM PAGER: [phone] [facility] THERAPY NT HNO ID: [id number] thor: Sherry (Padding Machine Operator) LENA WinklerService: Respiratory TherapyAuthor Type: Registered Resp TherapistType: Therapy (PT/OT/Speech/Resp)Filed: 06/26/2017 5:33 AMNote Text:SBT completed x 1 hr. Pt tolerated well. On CPAP PS 5 PEEP 5. Weaningparameters completed.MV 7.7VT 520RR 18RSBI 28VC unableNIF -20 (pt locked out)+ audible leak but unable to measure due to pt continuously coughing whencuff deflated [facility] Basic Panelon 06-25-2017 Creatinine 0.73 mg/dL Normal 0.67-1.17 [facility] Comment on above: Performed By: #### G LMET ####[place] [address] Calcium 7.8 mg/dL Low 8.5-10.1 [facility] Comment on above: Performed By: #### G LMET ####[place] [address] Glucose mass conc 127 mg/dL High 70-99 [facility] Comment on above: Performed By: #### G LMET ####[address] [address] Urea nitrogen 8 mg/dL Normal 7-18 [facility] Comment on above: Performed By: #### G LMET ####[address] [address] Anion gap 11 mmol/L Normal 8-16 [facility] Comment on above: Performed By: #### G LMET ####[address] [address] CO2 24 mmol/L Normal 21-32 [facility] Comment on above: Performed By: #### G LMET ####[place] [address] Chloride 111 mmol/L High 98-107 [facility] Comment on above: Performed By: #### G LMET ####[address] [address] Potassium molar conc 3.7 mmol/L Normal 3.5-5.1 [facility] Comment on above: Performed By: #### G LMET ####[facility] [place], [place] [address] Sodium 142 mmol/L Normal 136-145 [facility] Comment on above: Performed By: #### G LMET ####[address] [address] CASE MANAGEMon 06-25-2017 CASE MANAGEM HNO ID: [id number] Author: Alison (Specialist) Ben Service: Care Management Author Type: (none) Type: Care Mgt Progress Note Filed: 06/25/2017 1:43 PM Note Text: [facility] referral created to [facility]. Thank you. [facility] CASE MANAGEM HNO ID: [id number] thor: Chiqui DiazRn) Topher RNService: Care ManagementAuthor Type: Registered NurseType: Care Mgt Progress NoteFiled: 06/25/2017 1:03 PMNote Text:Chart reviewed, patient remains on Vent support w/ IVsedation and 24hour-EEG monitoring. Spoke w/ Brother Mary Kate via TC [phone]- he indicatespatient will return to [facility] at d/c if able. Referral sent [facility]- await response. D/C plan pending patient improvement. tocontinue to follow for transitional care needs and discharge planning. [facility] CASE MGT INIT Maxine 2017 CASE MGT INIT FAWN HNO ID: [id number] thor: GARCIA Smyth Rnervice: Care ManagementAuthor Type: Registered NurseType: Care Mgt Initial AssessmentFiled: 06/25/2017 12:59 PMNote Text:CARE MANAGEMENT: ASSESSMENT AND DISCHARGE PLANSERVICE DATE: 06/25/2017SERVICE TIME: 12:49 PMPRIMARY CARE PHYSICIAN:ROMELIA Romerohone: [phone] STATUS: InpatientPOTENTIAL DISCHARGE PLANSSk[facility] Nursing Facility/Intermediate Care FacilityTo Be DeterminedPatient/Representat enoch Stated Goals: Return to snfHealth Insurance: Medical Arg[employer] ServicesLiving Arrangement: Home, SNF[facility] With: N/A Patient From FacilityFinancial Resources: RetiredPrimary Contact:Extended Emergency Contact InformationPrimary Emergency Contact: Juan Mcdowell Dprqfd Ekbdztfa: BrotherSupportive: YesOther Important Patient Contacts: NoneCAREGIVER ASSESSMENT:Caregiver is ready, willing and able to meet the patient's needs asrecommended by the inter-professional team? YesPatient's transition needs and plan for meeting these needs: Returnreferral placed to snf and continue to follow and reassess fortransitional needs.Does the patient have an acute stroke diagnosis, or has the patient had astroke during this admission? YesADVANCE DIRECTIVES:Does Patient Have Advance Directives? Unable to assess- patient on ventDoes Patient Have Concerns About Advance Directives? NoPRIOR TO ADMISSION:Baseline Mental Status: Alert AND Oriented, Person, Place , Time andSituationFunctional Status: Needs AssistanceDoes Patient Currently Receive Any Community Services or Home Care? NoneEquipment Prior to Admission: N/AHEALTH:Health Issues Impacting Discharge Plan: Patient remains on ventHealth Literacy Issues: NoPSYCHOSOCIAL:Is the Patient Psychosocially Complex? NoFamily/Patient Understanding of Illness/Diagnosis: YesMedication Adherence:Do you forget to take your medications? gets meds at facilityHave you ever stopped taking medications because you felt worse? gets medsat facilityHave you ever taken less of your medication than what was prescribed byyour doctor? gets meds at facilityIn the past 3 months, have you had issues obtaining one or more of yourmedications? gets meds at facilityAre you interested in bedside delivery of your medications? NoFood Concerns:In the Last Month, Have You had Trouble Getting Food? No trouble gettingfoodDuring the Last Month, Have You Worried Whether Your Food Would Run OutBefore You Had Enough Money to Buy More? NoPsychosocial Needs: NoneUTILIZATION:Last Admission Date: Previous admit date: 06/21/2013Is this Within the Past 30 days? NoHas the Patient Been in a Long-Term Facility in the Past 30 days?Yes. Where and Dates: presentFREEDOM OF CHOICE EXPLAINED:N/LOIS COMMUNICATION:N/ASIGNATURE: Chiqui Obando RN PATIENT NAME: Loc CoyneTE: June 25, 2017 : 12:49 PM PAGER/CONTACT #: [facility] CHEST 1 VIEWon 06-25-2017 CHEST 1 VIEW Performed at [place] APPROVED BY: Chad Davis MD EXAM TITLE: AP UPRIGHT PORTABLE CHEST DATE: 06/25/2017 10:44 COMPARISON: 06/24/2017 and 06/22/2017 CLINICAL INDICATION/HISTORY: No was made of rhonchi on physical examination. The patient status post intubation. TECHNIQUE: A single AP upright portable view of the chest is presented. FINDINGS: There is an endotracheal tube with its tip 3.7 cm above the level of sav[place]. No other tubes or lines are identified. The cardiac silhouette is at the upper limits normal for size. Thoracic cord is slightly tortuous. The pulmonary vascularity is within normal limits. The right costophrenic angle is clear. There is blunting and indistinctness of the left costophrenic angle consistent with small left pleural effusion. There continues to be some elevation of the left hemidiaphragm. There is increased density at the left lung base in part due to pleural effusion although some infiltrate or atelectasis may also be present. This is similar to the most recent examination. No other areas of focal increased density are identified. There has been interval decrease in lung volumes. There is no evidence of pneumothorax. IMPRESSION: 1. Interval decrease in lung volumes. 2. Continued left pleural effusion and left basilar atelectasis/infiltrate slightly increased from prior study. 3. Tubes and lines as described above without evidence of pneumothorax. 4. Otherwise no interval change. Normal [facility] CHEST 1 VIEW Performed at [place] APPROVED BY: MARK FOWLER MD EXAMINATION: CHEST RADIOGRAPH (PORTABLE SINGLE VIEW AP) Clinical History: Intubation Comparison: 06/24/2017 RESULT: See impression. IMPRESSION: Lines, tubes, and devices: Interval placement of a endotracheal tube with the tip approximately 4 cm above the level of the savannah. Lungs and pleura: Patient is rotated. Mild elevated left hemidiaphragm with small left pleural effusion and left basilar atelectasis. Lung cerrato are otherwise clear without consolidation. No pneumothorax. Cardiomediastinal silhouette: Stable cardiomediastinal silhouette with mild aortic atherosclerotic calcification. Normal [facility] CONSULTon 06-25-2017 CONSULT HNO ID: [id number] thor: Jamesoncarol ann Simonervice: Critical CareAuthor Type: PhysicianType: ConsultsFiled: 06/25/2017 12:37 AMNote Text:CRITICAL CARE CONSULT NOTESERVICE DATE: 06/24/2017SERVICE TIME: 11:44 PMREASON FOR CONSULT: Respiratory FailureREQUESTING PHYSICIAN: Dr Dupree?ADMITTING PROVIDER: Lul RomeroERVICE DATE: 06/24/2017SERVICE TIME: 11:00 PMAdmission Date: 06/23/2017AGE: 67 year oldLOS: 1 [id number] yo gentleman who was admitted for acute bilateral hemispheric strokeswith complete occlusion of the L ICA with high grade stenosis at the TIM, mt was having worsening mental status, he came back from [facility] and started to have increase in oxygen requirement with episodes ofapnea, RN called me to assess Mr Mcdowell, when seen he was in respiratorydistress, patient is ok to intubate per family and primary team, he wassuccessfully intubated ( please see my separate note), he was a difficultairway with anterior larynx and very narrow airway, CXR ordered andconfirmed ET tube positionObjectivePROBLEMS: ACTIVE PROBLEM LISTPad (Peripheral Artery Disease) ([facility])WartHtn (Hypertension)Hypercholestere miaAlcohol AbuseArterial Vascular DiseaseSmokerSummaryDm (Diabetes Mellitus) ([facility])Drug ReactionEdemaDiabetic Eye Exam ([facility])Leg pain, bilateralWell Adult ExamScreening for Prostate CancerAcute Ischemic Left Mca Stroke ([facility])Expressive AphasiaCarotid Artery, Internal, Occlusion, BilateralCarotid Occlusion, BilateralPAST MEDICAL HISTORYDiagnosis Date- ALCOHOL ABUSE 10/29/2006- Difficult airway 06/21/2013 Grade III- HTN (hypertension)- PAD (peripheral artery disease) ([facility])- Peripheral vascular disease with claudication ([facility])- Stress hyperglycemia 06/21/2013 06/22/2013 Glucoses 160 on arrival to ICU Was started on RHI gtt perprotocol and converted to Lantus and SSI. 06/23/2013 Check [id number]- Tobacco use disorder 10/29/2006PAST SURGICAL HISTORYProcedure Laterality Date- ARTHROSCOPY OF JOINT UNLISTED 11/25/96 LEFT ELBOW- PAST SURGICAL HISTORY OF right leg stent- PAST SURGICAL HISTORY OF 06/2013 Aortobifem bypassSocial History Marital status: Single Spouse name: Years of education: Number of children:Social History Main Topics Smoking status: Former Smoker Packs/day: 1.50 Years: 30.00 Types: Cigarettes Quit date: 12/19/2011 Alcohol use: Yes 31.5 oz/week 21 Cans of Beer (12oz) per week Drug use: NoVITAL SIGNS (last 24hrs min/max):Temp Av.1 ?C (98.7 ?F) Min: 36.8 ?C (98.2 ?F) Max: 37.4 ?C (99.3?F)Pulse Av.2 Min: 72 Max: 111No Data RecordedCuff BP Min: 75/59 Max: 180/120Pain Score: 0/10Vital signs reviewed.BP 87/63 Pulse 72 Temp (Src) 98.2 (Tympanic) Resp 16 Wt 233 lb 7.5oz (105.9kg) SpO2 100%Temp (24hrs), Av.1 ?C (98.7 ?F), Min:36.8 ?C (98.2 ?F), Max:37.4 ?C(99.3 ?F)NET FLUID BALANCEIntake/Output Summary (Last 24 hours) at 06/24/17 2344Last data filed at 06/24/17 2200 Gross per 24 hourIntake 2952 mlOutput 990 mlNet 1962 mlMEDICATIONSCurrent Facility-Administered Medications:clopidogrel 75 mg tab(s) (PLAVIX) 75 mg ORAL DAILYpotassium chloride 80-120 mEq oral liquid 80-120 mEq ORAL/FEEDING TUBE PRNpotassium chloride iv piggyback 20 mEq in sterile water 100 mL 60-120 mEqINTRAVENOUS PRNmagnesium sulfate in water 2 g in sterile water 50 ml 2 g INTRAVENOUS PRNsodium phosphate 45 mmol in NaCl 0.9% 250 mL 45 mmol INTRAVENOUS PRNcalcium gluconate 4 g in NaCl 0.9% 250 mL 4 g INTRAVENOUS PRNmetoprolol 5 mg injection (LOPRESSOR) 5 mg INTRAVENOUS q 4 H PRNpropofol infusion (DIPRIVAN) 5-50 mcg/kg/min INTRAVENOUS CONTINUOUSipratropium-albuter ol 3 mL nebulizer solution (DUONEB) 3 mL INHALATION q 4H PRNNaCl 0.9% iv infusion 75 mL/hr INTRAVENOUS CONTINUOUSatorvastatin 80 mg tab(s) (LIPITOR) 80 mg ORAL/FEEDING TUBE AT BEDTIMElabetalol 10 mg injection syringe (NORMODYNE) 10 mg INTRAVENOUS q 10 MINPRNacetaminophen 650 mg tab(s) (TYLENOL) 650 mg ORAL/FEEDING TUBE q 4 H PRNdocusate sodium oral liquid 100 mg/10 mL (DIOCTO,COLACE) 100 mgORAL/FEEDING TUBE BIDondansetron (PF) 4 mg injection (ZOFRAN) 4 mg INTRAVENOUS q 6 H PRNcefTRIAXone iv piggyback 1 g in dextrose (iso-osmotic) 50 mL (ROCEPHIN) 1g INTRAVENOUS q 24 Haspirin 81 mg chewable tab(s) 81 mg ORAL/FEEDING TUBE DAILYlevETIRAcetam 1,000 mg in NaCl 0.9% 100 mL (KEPPRA) 1,000 mg INTRAVENOUSBIDdextrose 40 % 15 g (INSTA-GLUCOSE) 15 g ORAL PRNOrglucagon 1 mg injection (GLUCAGEN) 1 mg INTRAMUSCULAR PRNOrdextrose 50% in water 25 mL syringe 12.5 g INTRAVENOUS PRNinsulin regular human injection (short acting) (NovoLIN R,HumuLIN R)SUBCUTANEOUS q 6 Hperflutren lipid microspheres 1.1 mg/mL 1.3 mL injection (DEFINITY) 1.3 mLINTRAVENOUS DIRECTED PRNLines, Drains, and Airways Line Peripheral Admission to Hospital Short Left Hand 22 Gauge -- days Peripheral 06/23/17 1353 Short Right Forearm 20 Gauge 1 day Drain GI Feed/Drain Admission to Hospital Gastrostomy Left Upper QuadrantAbdomen -- days Indwelling Urinary Catheter 06/24/17 0947 Mckeon 16 Fr less than 1 day Airway Airway Endotracheal Tube 06/24/170 less than 1 dayPHYSICAL EXAM PERFORMED:Cardiovascular: Regular rhythmRespiratory: Clear to auscultation%FIO2 Min: 50 Max: 100Abdomen: Soft and NontenderExtremities: Edema- NoNeurologic: sedated with propofolRespiratory/Nursing Documentation:O2 Therapy: Ventilator (06/24/17 1394)Invasive Ventilator Mode: Pressure Regulated Volume Control ()Set Ventilator Respiratory Rate (BPM): 16 (06/24/172328)Total Respiratory Rate (BPM): 16 (06/24/172328)Tidal Volume Set (mL): 450 (06/24/172328)Exhaled Tidal Volume (mL): 441 (06/24/172328)Minute Volume (L): 7.1 (06/24/172328)Peak Inspiratory Pressure (cm H2O): 12 (06/24/172328)PEEP/CPAP (cm H2O): 0 (06/24/172328)HEMODYNAMIC DATA: ReviewedNUTRITION:Enteral Feeds: NoNPODATA: Diagnostic tests reviewed for today's visit, films/specimens werepersonally reviewed by me:Most recent labs and imaging results.LABS:Recent Labs WBC 11.75*RBC 4.72HB 14.5HCT 42.3MCV 89.6PLT 256GLUC 121*BUN 5*CREAT 0.52*NA 137K 3.4*CHLOR 102CO2 28CA 8.8MG 1.8ABG:Invalid input(s): M1HVOCAHXckjhtvkqy/PlanIMPRES IMELDA:Critical Care Documentation: The patient has the following organ/systemimpairment(s): Encephalopathy and Respiratory failure (Acute, withHypoxemia)Acute hypoxic respiratory failure requiring intubationIschemic stroke with inability to protect his airwayAcute encephalopathyUTICRITICAL CARE PLAN:Full vent support for nowCXR confirmed ET tube in good positionWean off oxygen as toleratedPRN duonebsRest per primary teamOverall prognosis is guardedThis patient has a high probability of sudden, clinically significantdeterioration, which requires the highest level of physician preparednessto intervene urgently. I managed/supervised life or organ supportinginterventions that required frequent physician assessment. I devoted myfull attention to the direct care of this patient for the amount of timeindicated below. Time I spent with family or surrogate(s) is includedonly if the patient was incapable of providing the necessary informationor participating in medical decision making. Time devoted to teaching isnot included.Discussed with staffTime spent providing critical care services: 40 minutes excludingprocedures.SIGNATURE : Jameson Barba MD PATIENT NAME: Loc oFx ReberDATE: June 24, 2017 : 11:44 PM [facility] Glucose Meteron 06-25-2017 Glucose mass conc 141 mg/dL High 70-99 [facility] Comment on above: Result Comment: EVITA Lujan OTIFIED Performed By: #### G LMET ####[address] [address] Glucose mass conc 144 mg/dL High 70-99 [facility] Comment on above: Result Comment: EVITA Lujan OTIFIED Performed By: #### G LMET ####[address] [address] Glucose mass conc 137 mg/dL High 70-99 [facility] Comment on above: Result Comment: EVITA Lujan OTIFIED Performed By: #### G LMET ####[place] [address] Hemogramon 06-25-2017 Erythrocyte distribution width Auto Ratio (RBC) 13.5 % Normal 11.6-14.4 [facility] Comment on above: Performed By: #### G LMET ####[address] [address] Erythrocytes (RBC) 3.64 mil/cmm Low 4.63-6.08 [facility] Comment on above: Performed By: #### G LMET ####[address] [address] Hematocrit (HCT) 33.4 % Low 40.1-51.0 [facility] Comment on above: Performed By: #### G LMET ####[address] [address] Hemoglobin mass conc (Bld) 11.3 g/dL Low 13.7-17.5 [facility] Comment on above: Performed By: #### G LMET ####[address] [address] MCH 31.0 pg Normal 25.7-32.2 [facility] Comment on above: Performed By: #### G LMET ####[address] [address] MCHC mass conc (RBC) 33.8 % Normal 32.3-36.5 [facility] Comment on above: Performed By: #### G LMET ####[facility] [place], [place] [address] MCV 91.8 fL Normal 83.2-95.6 [facility] Comment on above: Performed By: #### G LMET ####[address] [address] Platelet mean volume (PMV) 9.8 fL Normal 8.7-12.0 [facility] Comment on above: Performed By: #### G LMET ####[address] [address] Platelets 229 thou/cmm Normal 141-365 [facility] Comment on above: Performed By: #### G LMET ####[address] [address] RDW SD 45.9 fl High 36.1-45.8 [facility] Comment on above: Performed By: #### G LMET ####[address] [address] WBC (Leukocytes) 11.05 thou/cmm High 4.23-9.07 [facility] Comment on above: Performed By: #### G LMET ####[address] [address] MDRD GFRon 06-25-2017 eGFR (non-black) mL/min/{1.73_m2} Normal >60mL/m in/ 1.73m2 [facility] Comment on above: Result Comment: If t he patient is , multiply the result by 1.210. Performed By: #### G LMET ####[address] [address] Magnesium Bloodon 06-25-2017 Magnesium 1.6 mg/dL Normal 1.6-2.6 [facility] Comment on above: Performed By: #### G LMET ####[address] [address] NURSING PROGon 06-25-2017 NURSING PROG HNO ID: [id number] thor: Lilly (Rn) GARCIA Wongervice: (none)Author Type: Registered NurseType: Nursing Progress NoteFiled: 06/25/2017 12:46 AMNote Text: Nursing Progress: Topic: RESTRAINT NON-VIOLENTPATIENT NAME: Loc McleanRN: [id number] LOCATION: [place] [address]/[place] [address]*The patient demonstrates Attempting to Remove Medical Devices Vital toMedical Stability, Confusion, Lack of Understanding/Ability to Comply withSafety Directions, Impulsive Behavior, Inability to be Redirected asevidenced by the following behaviors pt with risk of reaching for oett andother invasive lines which pose an imminent danger to self or others.The following interventions were attempted but were not effective inprotecting the patient's safety: Alarms, Bed in Low/Locked Position, CallLight Within Reach, Medications Reviewed, Modify Environment, ModifyEquipment, Frequent Observation, Pain/Discomfort Relief, Re-OrientationMethodsNext, a comprehensive assessment was performed and warranted placing thepatient in Soft Bilateral Wrists, the least restrictive restraint neededto protect the patient's safety.Ongoing safety assessments and evaluation for earliest removal ofrestraints will be performed.DATE: June 25, 2017TIME: 12:46 Rosalind Wong RN [facility] PROGRESSon 06-25-2017 PROGRESS HNO ID: [id number] thor: Lul Romeroervice: NeurologyAuthor Type: PhysicianType: Progress NotesFiled: 06/25/2017 2:56 PMNote Text:NEURO ICU - PROGRESS NOTESERVICE DATE: 06/25/2017SERVICE TIME: 955AMObjectiveDETAILED REVIEWVITAL SIGNS (last 24hrs min/max):Temp Av.9 ?C (98.4 ?F) Min: 36.8 ?C (98.2 ?F) Max: 37.2 ?C (99 ?F)Pulse Av.3 Min: 53 Max: 111Cuff BP Min: 70/46 Max: 180/120Resp Av.4 Min: 13 Max: 30SpO2 Av.2 % Min: 94 % Max: 100 %No Data RecordedNo Data RecordedNo Data RecordedNo Data RecordedNo Data RecordedPain Score: 210INTAKE/OUTPUT:Intake/Outp ut Summary (Last 24 hours) at 06/25/17 1336Last data filed at 06/25/17 1200 Gross per 24 hourIntake 4266.9 mlOutput 375 mlNet 3891.9 mlCSF: N/AMIVF: NS - Rate: 75ml/hrPO/TF: Tube Feed Type: ISOSOURCE Rate: 52FREE WATER: N/ABM: Has the patient had a BM in the last 24 hours? YesPHYSICAL EXAM AND PERTINENT DATANeuro: patient is intubated but not sedated. He does not spontaneouslymove right arm but does spontaneously move all other extremities. Hegrimces at times and responds to deep stimuli on all extremities exceptthe right hand. Patient does not track with yes but is opening eyes.CV: RRR no murmurs.Pulm: crackles and Rhales heard on lung bases BLGI/: soft and non distended.Skin/Extremities: Edema- No Peripheral pulses- Present all extremitiesWounds/Drsgs- No Breakdown- NoCurrent Facility-Administered Medications:Chlorhexidine Gluconate 0.12 % 15 mL (PERIDEX) 15 mL ORAL q 12 Hacetaminophen 650 mg tab(s) (TYLENOL) 650 mg PEG q 4 H PRNpotassium chloride 80-120 mEq oral liquid 80-120 mEq PEG PRNenoxaparin 40 mg injection (LOVENOX) 40 mg SUBCUTANEOUS q 24 HRfamotidine 20 mg tab(s) (PEPCID) 20 mg PEG BIDoxyCODONE IR 5-10 mg tab(s) (ROXICODONE) 5-10 mg PEG q 6 H PRNgabapentin 300 mg cap(s) (NEURONTIN) 300 mg PEG q 8 HhydrALAZINE 10-20 mg injection (APRESOLINE) 10-20 mg INTRAVENOUS q 6 H PRNdexamethasone sodium phosphate 4 mg injection (DECADRON) 4 mg INTRAVENOUSq 6 Hpotassium chloride iv piggyback 20 mEq in sterile water 100 mL 60-120 mEqINTRAVENOUS PRNmagnesium sulfate in water 2 g in sterile water 50 ml 2 g INTRAVENOUS PRNsodium phosphate 45 mmol in NaCl 0.9% 250 mL 45 mmol INTRAVENOUS PRNcalcium gluconate 4 g in NaCl 0.9% 250 mL 4 g INTRAVENOUS PRNmetoprolol 5 mg injection (LOPRESSOR) 5 mg INTRAVENOUS q 4 H PRNpropofol infusion (DIPRIVAN) 5-50 mcg/kg/min INTRAVENOUS CONTINUOUSipratropium-albuter ol 3 mL nebulizer solution (DUONEB) 3 mL INHALATION q 4H PRNNaCl 0.9% iv infusion 75 mL/hr INTRAVENOUS CONTINUOUSondansetron (PF) 4 mg injection (ZOFRAN) 4 mg INTRAVENOUS q 6 H PRNcefTRIAXone iv piggyback 1 g in dextrose (iso-osmotic) 50 mL (ROCEPHIN) 1g INTRAVENOUS q 24 Hdextrose 40 % 15 g (INSTA-GLUCOSE) 15 g ORAL PRNOrglucagon 1 mg injection (GLUCAGEN) 1 mg INTRAMUSCULAR PRNOrdextrose 50% in water 25 mL syringe 12.5 g INTRAVENOUS PRNinsulin regular human injection (short acting) (NovoLIN R,HumuLIN R)SUBCUTANEOUS q 6 Hperflutren lipid microspheres 1.1 mg/mL 1.3 mL injection (DEFINITY) 1.3 mLINTRAVENOUS DIRECTED PRNLABS: CBC, Coags, BMP, Mg, PhosRecent Labs 06/24/1803WBC 11.05* 11.75*HB 11.3* 14.5HCT 33.4* 42.3PLT 229 256NA 142 137K 3.7 3.4*CHLOR 111* 102CO2 24 28BUN 8 5*CREAT 0.73 0.52*GLUC 127* 121*CA 7.8* 8.8MG 1.6 1.8P 3.3 3.0DATA:Diagnostic tests reviewed for today's visit:Most recent labs and imaging results.Assessment/PlanCHIEF COMPLAINT: encephalopathy, acute strokeICU Admission Date: 06/23/17Principle Diagnosis and Comorbidities: acute bilateral hemispheric stroke,chronic L MCA stroke 01/25, LICA occlusion, PAD, HTN, dyslipidemia, DM, UTIActive Consults: n/aHISTORY OF PRESENT ILLNESS: Loc Mcdowell is a 67 year old right-handedmale with past medical history significant for L MCA stroke due to L ICAocclusion in 01/25, presently living in care home with flaccid Rhemiparesis and global aphasia, chronic PEG, who was found on 06/22 withAMS. Reportedly the pt usually is somewhat interactive and on 06/22 he wasunresponsive with R gaze deviation. He was brought to [facility] ED and les Ramos, admitted for workup and monitoring; MRI done for workup ofencephalopathy showed unexpectedly bilateral hemispheric strokes. CTAshowed complete occlusion of the L ICA from its origin with short segmenthigh grade stenosis vs occlusion at the R ICA origin. Some L sided limbshaking was seen and the pt was started empirically on Keppra. [facility].HOSPITAL COURSE: Pt arrived in 2 in good condition, no acute distress,no adverse events so far.24 HOUR EVENTS: n/aMEDICAL EVENTS: No medical events have been recorded.PLAN:Neuro:Stroke Etiology Work Up: Imaging: None today Blood Tests: Other Studies: EEG orderedStroke Management: Endovascular/Surgical Intervention: Await MRI results. Dr Moyersulted for possible angiogram. ICP Management: n/aStroke Prevention: Maintain SBP<220 C/w ASA and Plavix (outpt meds)Cardiovascular: BP Management: Permissive HTNPulmonary: Elevated HOB Intubated after respiratory failure and hypoxemiaRenal/Electrolytes: Mckeon Present: Yes, due to immobility and need for strict I/O IV Fluids: NS @ 75 ml/hrGI/Nutrition Swallow Assessment: Complete prior to diet Dysphagia Screen: Not applicable GI Prophylaxis: Not indicated Current Diet:Orders Placed This Encounter DIET NPOEndo: Glucose Controlled: YesInfectious Disease: Antibiotics: started on ceftriaxone for GNB in urine 06/22Heme/VTE: Calf SCD'sSkin/Extremities: No skin ulcers present.Lines/Access: R AC, L ACRecovery and Disposition: Will order OOB and therapies after 24 hours.PATIENT CHECKLIST? Are restraints necessary: Yes. Order written? Yes? VTE prophylaxis administered: Yes. Mechanical- Yes. Pharmacological-Yes.? On sedation: No? Patient on ventilatory support: Yes. Ready for weaning trial: No HasPeridex been ordered? Yes? Central line or arterial line present: No? Mckeon present: Yes. Able to D/C: No, close I/O monitoringPLAN:-EEG ordered-DCA and Stenting of the Rt CCA/ICA performed yesterday.-closely monitoring BPPERSONAL INVOLVEMENT IN CARE: Reviewing initiation, responses andadjustments to therapies, coordination of care, and updating updatingfamily with Staff Physician, Dr. Lul dupree.SIGNATURE: JEAN JOHN PA-C PATIENT NAME: Loc GraysonerDATE: June 25, 2017 : 1:19 PM PAGER/CONTACT #: [phone] STAFF Yue Dupree MDIntubated overnight for apneic periods. Appears to be back to neurologicbaseline. CTH essentially unchanged except small area of extravasatedcontrast within chronic LMCA infarct. BP running low d/t ICA stent placedyesterday. Continue ceftriaxone for UTI. Steroids for vocal cord edema;will discuss goals of care with family. Monitor for recovery.PERSONAL INVOLVEMENT IN CARE:??Patient/Family Updated: Patient and/or family were updated regarding thegoals of care,?medical plan for the day, [employer] operations consultant recommendations,medical disposition and current medical condition/prognosis as and ifclinically indicated. All questions and concerns were answered andaddressed at this juncture. I agree with the resident MD note as above,except as otherwise indicated; my additional comments, if necessary, arein bold.?This patient has a high probability of sudden, clinically significantdeterioration, which requires the highest level of physician preparednessto intervene urgently. I managed/supervised life or organ supportinginterventions that required frequent physician assessment. I devoted myfull attention to the direct care of this patient for the amount of timeindicated below. Time I spent with family or surrogate(s) is includedonly if the patient was incapable of providing the necessary informationor participating in medical decision making. Time devoted to teaching andto any procedures I billed separately is not included.?Critical Care Documentation: The patient has the following organ/systemimpairment(s): As aboveTime spent providing critical care services: 40 minutes.?SIGNATURE: Lul Dupree MD PATIENT NAME: Loc GraysonerDATE: 06/25/17 : 2:55 PM PAGER/CONTACT #: [phone] [facility] PROGRESS HNO ID: [id number] thor: Paula Huerta: Critical CareAuthor Type: PhysicianType: Progress NotesFiled: 06/25/2017 10:57 AMNote Text:MICU PROGRESS NOTESERVICE DATE: 06/25/2017SERVICE TIME: 0830Admission Date: 06/23/2017Day #:Day 1 NSCUSubjectiveHPI: This is a 67 year old with PMH of prior CVAs. [facility]/ chronic PEG. Admitted last night 2/2 acuteencephalopathy, decreased mentation. Found to have right CCA/ICAocclusion. Went to [facility] last night and underwent stenting of Right CCA.Had to be intubated last night 2/2 to desaturations and inability toprotect airway. Of note intubated w/ 37 ET tube because difficultintubation.Objective VITAL SIGNS (last 24hrs min/max):Temp Av.8 ?C (98.3 ?F) Min: 36.8 ?C (98.2 ?F) Max: 37 ?C (98.6 ?F)Pulse Av.7 Min: 59 Max: 111No Data RecordedCuff BP Min: 70/46 Max: 180/120Pain Score: 5/10Vital signs reviewed. Relevant comments-NET FLUID BALANCEIntake/Output Summary (Last 24 hours) at 06/25/17 1019Last data filed at 06/25/17 0958 Gross per 24 hourIntake 3716.9 mlOutput 1120 mlNet 2596.9 mlMEDICATIONSCurrent Facility-Administered Medications:Chlorhexidine Gluconate 0.12 % 15 mL (PERIDEX) 15 mL ORAL q 12 Hacetaminophen 650 mg tab(s) (TYLENOL) 650 mg PEG q 4 H PRNpotassium chloride 80-120 mEq oral liquid 80-120 mEq PEG PRNenoxaparin 40 mg injection (LOVENOX) 40 mg SUBCUTANEOUS q 24 HRfamotidine 20 mg tab(s) (PEPCID) 20 mg PEG BIDoxyCODONE IR 5-10 mg tab(s) (ROXICODONE) 5-10 mg PEG q 6 H PRNgabapentin 300 mg cap(s) (NEURONTIN) 300 mg PEG q 8 HhydrALAZINE 10-20 mg injection (APRESOLINE) 10-20 mg INTRAVENOUS q 6 H PRNdexamethasone sodium phosphate 4 mg injection (DECADRON) 4 mg INTRAVENOUSq 6 Hpotassium chloride iv piggyback 20 mEq in sterile water 100 mL 60-120 mEqINTRAVENOUS PRNmagnesium sulfate in water 2 g in sterile water 50 ml 2 g INTRAVENOUS PRNsodium phosphate 45 mmol in NaCl 0.9% 250 mL 45 mmol INTRAVENOUS PRNcalcium gluconate 4 g in NaCl 0.9% 250 mL 4 g INTRAVENOUS PRNmetoprolol 5 mg injection (LOPRESSOR) 5 mg INTRAVENOUS q 4 H PRNpropofol infusion (DIPRIVAN) 5-50 mcg/kg/min INTRAVENOUS CONTINUOUSipratropium-albuter ol 3 mL nebulizer solution (DUONEB) 3 mL INHALATION q 4H PRNNaCl 0.9% iv infusion 75 mL/hr INTRAVENOUS CONTINUOUSondansetron (PF) 4 mg injection (ZOFRAN) 4 mg INTRAVENOUS q 6 H PRNcefTRIAXone iv piggyback 1 g in dextrose (iso-osmotic) 50 mL (ROCEPHIN) 1g INTRAVENOUS q 24 Hdextrose 40 % 15 g (INSTA-GLUCOSE) 15 g ORAL PRNOrglucagon 1 mg injection (GLUCAGEN) 1 mg INTRAMUSCULAR PRNOrdextrose 50% in water 25 mL syringe 12.5 g INTRAVENOUS PRNinsulin regular human injection (short acting) (NovoLIN R,HumuLIN R)SUBCUTANEOUS q 6 Hperflutren lipid microspheres 1.1 mg/mL 1.3 mL injection (DEFINITY) 1.3 mLINTRAVENOUS DIRECTED PRNINDWELLING CATHETERS:Lines, Drains, and Airways Line Peripheral Admission to Hospital Short Left Hand 22 Gauge -- days Peripheral 06/23/17 1353 Short Right Forearm 20 Gauge 1 day Peripheral 06/25/17 0400 Short Left Forearm 20 Gauge less than 1 day Drain GI Feed/Drain Admission to Hospital Gastrostomy Left Upper QuadrantAbdomen -- days Indwelling Urinary Catheter 06/24/17 0947 Mckeon 16 Fr 1 day Airway Airway Endotracheal Tube 06/24/17 2130 less than 1 dayPHYSICAL EXAM:Physical exam performedGENERAL: 67yo WM, looks older than his age. Intubated. Does not followcommands.HEART: RRRLUNGS: CTAABD; Soft, NT, NDEXT: - C/C/EGU: mckeon with small clear yellow urine.NEURO: will open eyes, + cough, gag, cough and corneals. Moves LLEspontaneously. Does not move RUE.DATA:Diagnostic tests reviewed for today's visit:Most recent labs and imaging results.LABS: CBC, Coags, BMP, Mg, PhosRecent Labs 06/24/18035WBC 11.05* 11.75*HB 11.3* 14.5HCT 33.4* 42.3PLT 229 256NA 142 137K 3.7 3.4*CHLOR 111* 102CO2 24 28BUN 8 5*CREAT 0.73 0.52*GLUC 127* 121*CA 7.8* 8.8MG 1.6 1.8P 3.3 3.0Cardiac EnzymesABGsCULTURES: N/ACXR FINDINGS: recent CXR results reviwed.OTHER IMAGING:Assessment/Plan1. Acute hypoxic respiratory failure:2. New Bilateral hemispheric CVA3. S/p stenting Right CCA/ICA4. Difficult intubation5. UTI6. Dysphagia, pt has PEG.7. PAD, prior hx of aorto-bifem bypass8. DM-2PLANS FOR TODAY:1. Agree with short course of Decadron to decrease upper airway edema andreassess tomorrow if able to extubate.2. Consider palliative care consult.3. Check SBT/WP tomorrow AM.4. D/W RN and Dr Dupree.5. Ceftriaxone for [facility] STAFF PHYSICIAN NOTE OF PERSONAL INVOLVEMENT IN CAREI have reviewed the documentation by the resident/ ENEDINA and I personallyparticipated in the joseph components. I have discussed the case andmanagement of the patient's care. The following comments revise or confirmrelevant joseph components of the note.IMPRESSION:Critical Care Documentation: The patient has the following organ/systemimpairment(s): Respiratory failure (Acute, with Hypoxemia), Bilateralhemispheric CVAs, MMP, difficult intubationDiscussed with staffThis patient has a high probability of sudden, clinically significantdeterioration, which requires the highest level of physician preparednessto intervene urgently. I managed/supervised life or organ supportinginterventions that required frequent physician assessment. I devoted myfull attention to the direct care of this patient for the amount of timeindicated below. Time I spent with family or surrogate(s) is includedonly if the patient was incapable of providing the necessary informationor participating in medical decision making. Time devoted to teaching isnot included.Time spent providing critical care services: 40 minutes excludingprocedures.SIGNATURE : KAYLENE JulesADVENTIST HEALTH BAKERSFIELD HEART INSTITUTETIME of SERVICE: 10:55 AMSIGNATURE: Paula Diego MD PATIENT NAME: Loc GraysonerDATE: June 25, 2017 : 10:19 AM PAGER/CONTACT #: [phone] [facility] Phosphorus Bloodon 8 Phosphate 3.3 mg/dL Normal 2.5-4.9 [facility] Comment on above: Performed By: #### G LMET ####[place] [address] SOCIAL WORKon 06-25-2017 SOCIAL WORK HNO ID: [id number] thor: Arianne Talavera) BethanService: Social WorkAuthor Type: Social WorkerType: Social WorkFiled: 06/25/2017 11:26 AMNote Text:SOCIAL WORK PROGRESS NOTESERVICE DATE: 06/25/2017SERVICE TIME: 11:24 AM LOS: 2 daysGuardianshipBrother brought letter of guardianship, copy placed in chart and sent toadmitting to be scanned into electronic record.Time Spent (minutes): 15SIGNATURE: DEEPTI Mcmullen PATIENT NAME: Loc GraysonerDATE: June 25, 2017 : 11:24 AM PAGER/CONTACT #: [phone] [facility] THERAPY NTon 06-25-2017 THERAPY NT HNO ID: [id number] thor: Phoebe (Otr/Flash) ThoService: Occupational TherapyAuthor Type: Occupational TherapistType: Therapy (PT/OT/Speech/Resp)Filed: 06/25/2017 10:30 AMNote Text:OCCUPATIONAL THERAPY MISSED VISITSERVICE DATE: 06/25/2017SERVICE TIME: 1029 to 1029ROOM: [id number] Evaluation. Patient not seen due to (intubated with no plansto extubate soon, will D/C). Please re-order when medicallyappropriate/able to participate in OT.SIGNATURE: MARIA T Bustillo/Flash PATIENT NAME: Loc GraysonerDATE: June 25, 2017 : 10:29 AM PAGER/CONTACT #: [facility] THERAPY NT HNO ID: [id number] thor: Vanna DiazCcc-Vulcanizing Press Operator) SHIRLEY Cortes/SLPService: Speech/SwallowAuthor Type: Speech Language PathologistType: Therapy (PT/OT/Speech/Resp)Filed: 06/25/2017 10:14 AMNote Text:SPEECH THERAPY MISSED VISITSERVICE DATE: 06/25/2017SERVICE TIME: 1015 to 1015ROOM: [place] [id number] Clinical Swallow Evaluation. Patient not seen due to Other: SeeComment (Intubated).SIGNATURE: YAIMA Bryson PATIENT NAME: Loc GraysonerDATE: June 25, 2017 : 10:14 AM PAGER/CONTACT #: [phone] [facility] THERAPY NT HNO ID: [id number] thor: Roselyn (Pt) FrancoiseService: Physical TherapyAuthor Type: Physical TherapistType: Therapy (PT/OT/Speech/Resp)Filed: 06/25/2017 1:13 PMNote Text:PHYSICAL THERAPY MISSED VISITSERVICE DATE: 06/25/2017SERVICE TIME: 0822 to 0822ROOM: [place] [address]Attempted Evaluation. Patient not seen due to Illness (intubated andsedated). D/C'd PT order--no plan to extubate any time soon--pleasere-order when appropriateSIGNATURE: Roseyln Owusu PT PATIENT NAME: Loc GraysonerDATE: June 25, 2017 : 8:23 AM PAGER/CONTACT #: [phone] [facility] BRIEF OP NOTon 06-24-2017 BRIEF OP NOT HNO ID: [id number] thor: Anastasia GambinoService: NeurosurgeryAuthor Type: PhysicianType: Brief Op NoteFiled: 06/24/2017 4:28 PMNote Text:BRIEF OPERATIVE / PROCEDURE NOTELOG ID: [id number]/Procedure Date: 06/24/2017Incision/Procedure Start Time:Incision Close/Procedure End Time:Surgeon(s)/Proceduralist (s) and Cutting And Splicing Supervisor(s):Surgeon(s) and Role: * Anastasia Lopez Additional StaffProcedure(s): DCA and Stenting of the Rt CCA/ICAAnesthesia: Procedural SedationFindings: critical pre occlusive stenosis of the RT CCA bifurcation.Old occlusion of the left CCAEstimated Blood Loss: 20 mlsSpecimens: NoneComplications: NonePre-Op/Pre-Procedure Diagnosis: critical pre occlusive stenosis of the RTCCA bifurcation.Post-Op/Post-Proc edure Diagnosis: critical pre occlusive stenosis of theRT CCA bifurcation., S?P stentingSIGNATURE: Anastsaia Gambino MD PATIENT NAME: Loc McdowellDATE: June 24, 2017 : 4:26 PM PAGER/CONTACT #: [facility] Basic Panelon 06-24-2017 Creatinine 0.52 mg/dL Low 0.67-1.17 [facility] Comment on above: Performed By: #### P 8 ####[place] [address] Anion gap 10 mmol/L Normal 8-16 [facility] Comment on above: Performed By: #### P 8 ####[place] [address] Chloride 102 mmol/L Normal 98-107 [facility] Comment on above: Performed By: #### P 8 ####[place] [address] Potassium molar conc 3.4 mmol/L Low 3.5-5.1 [facility] Comment on above: Performed By: #### P 8 ####[place] [address] Sodium 137 mmol/L Normal 136-145 [facility] Comment on above: Performed By: #### P 8 ####[place] [address] Glucose mass conc 121 mg/dL High 70-99 [facility] Comment on above: Performed By: #### P 8 ####[facility] [place], [place] [address] Urea nitrogen 5 mg/dL Low 7-18 [facility] Comment on above: Performed By: #### P 8 ####[facility] [place] [address] Calcium 8.8 mg/dL Normal 8.5-10.1 [facility] Comment on above: Performed By: #### P 8 ####[facility] [place] [address] CO2 28 mmol/L Normal 21-32 [facility] Comment on above: Performed By: #### P 8 ####[facility] [place], [place] [address] CHEST 1 VIEWon 06-24-2017 CHEST 1 VIEW Performed at [place] APPROVED BY: Ward Lopez MD EXAM TITLE: CHEST 1 VIEW DATE: 06/24/2017 20:52 COMPARISON: Chest x-ray 06/24/2017 CLINICAL INDICATION/HISTORY: Respiratory status change TECHNIQUE: An AP upright view of the chest is presented. FINDINGS:EKG leads overlap the chest.The cardiomediastinal silhouette is unremarkable.No pneumothorax.The costophrenic angles are clear bilaterally.No areas of consolidation.The pulmonary vessels are within normal limits.The bony structures are intact. IMPRESSION: No evidence of acute intrathoracic process. Normal [facility] CHEST 1 VIEW Performed at [place] APPROVED BY: Rick Mei MD EXAM TITLE: CHEST 1 VIEW DATE: 06/24/2017 10:06 INDICATION: Abnormal breath sounds. COMPARISON: 06/22/2017. Portable frontal view of the chest shows the lungs to be clear. No infiltrates or effusions. The heart size is normal. Overlying gastroenterology technician leads. IMPRESSION: No acute findings radiographically. Normal [facility] CT HEAD W/O CONTRASTon 06-24 CT HEAD W/O CONTRAST Performed at [facility] APPROVED BY: Ward Lopez MD EXAMINATION: CT BRAIN WITHOUT CONTRAST CLINICAL HISTORY: Postop, left arm weakness TECHNIQUE: Routine CT scan of the brain without contrast. Serial axial unenhanced images were obtained from the vertex to the foramen magnum.M: [id number] CT Dose-Length Product (DLP): 828.43+1022.76 mGy*cmCT Dose Reduction Employed: No dose reduction techniques was required COMPARISON: None. RESULT: Post-operative change: None. Acute change: There is a large area of encephalomalacia involving the left parietal, frontal and temporal lobes and the left middle cerebral artery distribution likely related to subacute infarct. There is a small focal area of increased density measuring 1.4 cm x 0.6 cm within this area of encephalomalacia which may represent a small area of intraparenchymal hemorrhage. Fluid collection or hemorrhage. Hemorrhage: Please see above under acute changes. Mass effect / Mass lesion: There is no evidence of an intracranial mass or extraaxial fluid collection. No significant mass effect. Chronic change: None apparent. Ventricles: There is mild ex vacuo dilatation of the left lateral ventricle. Paranasal sinuses and skull base: The visualized paranasal sinuses are clear. The skull base and imaged soft tissues are unremarkable. IMPRESSION: Large area encephalomalacia involving the left frontal, parietal and temporal lobes and the left middle cerebral artery distribution likely representing subacute infarct. There is a 1.4 cm x 0.6 cm focus of increased density within the area of encephalomalacia which may represent small area of acute hemorrhage. Normal [facility] Glucose Meteron 06-24-2017 Glucose mass conc 124 mg/dL High 70-99 [facility] Comment on above: Result Comment: EVITA Lujan OTIFIED Performed By: #### G LMET ####[address] [address] Glucose mass conc 120 mg/dL High 70-99 [facility] Comment on above: Result Comment: EVITA Lujan OTIFIED Performed By: #### G LMET ####[address] [address] Glucose mass conc 117 mg/dL High 70-99 [facility] Comment on above: Result Comment: EVITA Lujan OTIFIED Performed By: #### G LMET ####[address] [address] Glucose mass conc 120 mg/dL High 70-99 [facility] Comment on above: Result Comment: EVITA Lujan OTIFIED Performed By: #### G LMET ####[address] [address] Glucose mass conc 115 mg/dL High 70-99 [facility] Comment on above: Performed By: #### G LMET ####[place] [address] Hemogramon 06-24-2017 Erythrocyte distribution width Auto Ratio (RBC) 12.9 % Normal 11.6-14.4 [facility] Comment on above: Performed By: #### C BC1 ####[place] [address] Erythrocytes (RBC) 4.72 mil/cmm Normal 4.63-6.08 [facility] Comment on above: Performed By: #### C BC1 ####[place] [address] Hematocrit (HCT) 42.3 % Normal 40.1-51.0 [facility] Comment on above: Performed By: #### C BC1 ####[place] [address] Hemoglobin mass conc (Bld) 14.5 g/dL Normal 13.7-17.5 [facility] Comment on above: Performed By: #### C BC1 ####[place] [address] MCH 30.7 pg Normal 25.7-32.2 [facility] Comment on above: Performed By: #### C BC1 ####[place] [address] MCHC mass conc (RBC) 34.3 % Normal 32.3-36.5 [facility] Comment on above: Performed By: #### C BC1 ####[place] [address] MCV 89.6 fL Normal 83.2-95.6 [facility] Comment on above: Performed By: #### C BC1 ####[place] [address] Platelet mean volume (PMV) 9.5 fL Normal 8.7-12.0 [facility] Comment on above: Performed By: #### C BC1 ####[address], [place] [address] Platelets 256 thou/cmm Normal 141-365 [facility] Comment on above: Performed By: #### C BC1 ####[address] [address] RDW SD 42.3 fl Normal 36.1-45.8 [facility] Comment on above: Performed By: #### C BC1 ####[address] [address] WBC (Leukocytes) 11.75 thou/cmm High 4.23-9.07 [facility] Comment on above: Performed By: #### C BC1 ####[address] [address] Hgb A1con 06-24-2017 Glucose mass conc 169 mg/dL Normal [facility] Comment on above: Performed By: #### H A1C ####[address] [address] Hemoglobin A1c/Hemoglobin.total mass fraction (Bld) 7.5 % High 4.2-6.3 [facility] Comment on above: Result Comment: Meth od is National Glycohemoglobin Standardization Program (NGSP) compliant. Performed By: #### H A1C ####[address] [address] Lipid Profileon 06-24-2017 Cholesterol to HDL Ratio 5.6 {ratio} Normal 2.1-7.3 [facility] Comment on above: Performed By: #### L IPD2 ####[address] [address] HDL Cholesterol 36 mg/dL Normal >40 [facility] Comment on above: Performed By: #### L IPD2 ####[address] [address] LDL Cholesterol 127 mg/dL Normal [facility] Comment on above: Result Comment: No C AD and with fewer than 2 CAD risk factors <160 mg/dlNo CAD but with 2 or more CAD risk factors <130 mg/dlDefinite CAD or other atherosclerotic disease <100 mg/dl Performed By: #### L IPD2 ####[facility] [place], [place] [address] LDL to HDL Ratio 3.5 Normal 1.1-4.8 [facility] Comment on above: Result Comment: LDL, VLDL,LDL/HDL, Invalid if Triglyceride >400 Performed By: #### L IPD2 ####[facility] [place], [place] [address] Cholesterol 202 mg/dL High 0-199 [facility] Comment on above: Result Comment: <200 [id number] Borderline>240 High Performed By: #### L IPD2 ####[place] [address] Cholesterol in VLDL mass conc 39 mg/dL Normal <50 Desired [facility] Comment on above: Performed By: #### L IPD2 ####[facility] [place] [address] Triglyceride 194 mg/dL High 0-149 [facility] Comment on above: Result Comment: < 20 0 DesirableResult invalid if not a fasting specimen. Performed By: #### L IPD2 ####[place] [address] MDRD GFRon 06-24-2017 eGFR (non-black) mL/min/{1.73_m2} Normal >60mL/m in/ 1.73m2 [facility] Comment on above: Result Comment: If t he patient is , multiply the result by 1.210. Performed By: #### G FR ####[place] [id number] Magnesium Bloodon 06-24-2017 Magnesium 1.8 mg/dL Normal 1.6-2.6 [facility] Comment on above: Performed By: #### M AG ####[place] [id number] NURSING PROGon 06-24-2017 NURSING PROG HNO ID: [id number] thor: Serina (Rn) GARCIA Eliseervice: (none)Author Type: Registered NurseType: Nursing Progress NoteFiled: 06/24/2017 9:11 PMNote Text:Pts resp status declined to using abdomen/accesory muscles with shortperiods of apnea. Spoke with Dr Dupree who ordered a consult to NPCSfor evaluation and placed on bipap by RT [facility] During this time, also called Mary Kate who is listed as thepatients POA. Mary Kate stated to myself and Kathleen Oreilly RN that he wanted thept intubated if the physician felt he needed it at least short term. Allegra at bedside, ordered immediate intubation. Pt is currently beingintubated. Per Dr Dupree, pts code status changed to CCA and the orderwas updated to reflect CCA. [facility] NURSING PROG HNO ID: [id number] thor: Lilly (Rn) GARCIA Wongervice: (none)Author Type: Registered NurseType: Nursing Progress NoteFiled: 06/25/2017 5:18 AMNote Text:2014- Pt to head CT with RN and transport, pt on monitor and in stablecondition. Pending CTH for recent change in neuro- L arm with decreasedmovement and extending to nox stim. Dr Gambino aware of above.2029- Upon return from head CT, pt with apneic episodes and snoring typebreathing. O2 sats 95-100%. Wheezes noted upper airway. PARTNER MANAGEMENT CONSULTANT paged tobedside and NRB applied. Dr Dupree on phone and aware of above- ordersfor consult to NPCS. DNR-CCA orders verified with Dr. Dupree. Brianna also aware of recent neuro changes and head CT.2044- NPCS on phone- order for stat CXR obtained. Placed on bipap perRRT. Dr Barba aware of above and noted mottled skin BLE.2099- Dr. Barba at bedside- plans to intubate. Intubation discussed andagreed upon prior with eliud Cassidy (POA) by Serina JAMA- see note.2112- Dr Barba at bedside with NSICU team and PARTNER MANAGEMENT CONSULTANT ready to intubate.Timeout complete.2114- 2 mg versed given, 20 mg etomidate given.2117- 25 mcg fentanyl given.2121- 2 mg versed given.2123- Tube insert size 7 ETT 23 THEA, + color change, breath sounds + b/l.2128- Additional 2mg versed given. See mar for all medical director occupational health.2300- Spoke with Dr Tay- orders obtained for vent settings, breathingtx and CXR to verify placement.05- Spoke with Dr Dupree- he is aware of low UO, intermittent twitchin R foot. Orders obtained for routine EEG and 1 liter NS bolus. [facility] NURSING PROG HNO ID: [id number] thor: Robbie (Rn) GARCIA Perezervice: NursingAuthor Type: Registered NurseType: Nursing Progress NoteFiled: 06/24/2017 7:41 PMNote Text:At 1835 Dr. Gambino informed that patient is not moving left armspontaneously and is only extending it to pain. Dr. Dupree pagedmultiple times in between 1834 and 1939 to inform of change in assessmentwithout return of phone call. [facility] NUTRITIONon 06-24-2017 NUTRITION HNO ID: [id number] thor: FIORELLA King Rdervice: Nutrition TherapyAuthor Type: Registered DietitianType: NutritionFiled: 06/24/2017 1:26 PMNote Text:NUTRITION THERAPY INITIAL ASSESSMENTSERVICE DATE: 06/24/2017SERVICE TIME: 12:37 PMRECOMMENDED MALNUTRITION DIAGNOSIS: NO MALNUTRITION IDENTIFIEDNUTRITION CARE PLAN:Problem, Etiology and Signs/Symptoms:Dysphagia from previous stroke aeb peg placement. Pt receives Glucerna 1.5TF at [facility]. It appears he was taking a po diet per TF orders stating he isto receive a bolus of TF if he eats less than 50% of a meal.Intervention: TF recommendation when feeding starts: Isosource 1.5 @ 52ml/hr via peg with 175 to 200 ml flush Q 4 hrs. This will provide 1875kcals, 85 g pro, 220 g cho, 2100 ml fld per 24 hrs. If bolus feedingdesired suggest 5 bolus feedings of Isosource 1.5 per day with ~ 200 mlflush after each bolus feeding. Pt will likely have increased insulinneeds due to [facility] does not carry Glucerna 1.5 and Isosource 1.5 has morecarbohydrate than Glucerna.Monitor and Evaluation:Goal: Meet >75% of estimated needsMonitor fluid/electrolyte balanceMonitor labs, I/Os, vital signs, weightMonitor tolerance to tube feedingDischarge Nutrition Recommendations:Diet: to be determinedPer HPI: Loc Mcdowell is from [facility]. He has pmh of leftMCA stroke due to left ICA occlusion in Jan 2017. He has right sidedhemiparesis and global aphasia and a PEG tube from a previous stroke. [facility]was [facility] with a [facility] at [facility] and an MRI showed bilateral hemisphericstrokes. CTA also showed complete occlusion of the left ICA from itsorigin with a short segment of high grade stenosis vs occlusion at theright ICA origin. Pt was started on Keppra and [facility].PAST MEDICAL HISTORYDiagnosis Date- ALCOHOL ABUSE 10/29/2006- Difficult airway 06/21/2013 Grade III- HTN (hypertension)- PAD (peripheral artery disease) ([facility])- Peripheral vascular disease with claudication ([facility])- Stress hyperglycemia 06/21/2013 06/22/2013 Glucoses 160 on arrival to ICU Was started on RHI gtt perprotocol and converted to Lantus and SSI. 06/23/2013 Check [id number]- Tobacco use disorder 10/29/2006Present Diet Order: NPO with a PEG.Nutritional Intake Prior to Admission: >75% estimated energy needs overthe past 4 month(s)GI symptoms: noneIs the patient having any pain that is interfering with oral/enteralintake? Unable to assessANTHROPOMETRICSAdmissio n Weight: 105.9 kg (233 lb 7.5 oz)Current Weight: 105.9 kg (233 lb 7.5 oz)Body mass index is 36.03 kg/(m2). class 2 obesityWeight has not changed significantly since 2014 or we do not have adequaterecords here.Last Wt06/23/17 : 105.9 kg (233 lb 7.5 oz)07/31/14 : 109.2 kg (240 lb 11.2 oz)01/18/14 : 103.4 kg (228 lb)09/13/13 : 98.7 kg (217 lb 9.6 oz)07/25/13 : 93.4 kg (206 lb)07/14/13 : 96.2 kg (212 lb)07/05/13 : 101.2 kg (223 lb)06/17/13 : 97.5 kg (214 lb 15.2 oz)05/23/13 : 97.5 kg (215 lb)05/20/13 : 98.9 kg (218 lb)[place] Body Weight: 70kgResting Metabolic Rate: 1815Estimated kilocalorie needs: 1750 - 1960 kilocalories determined by 25 -28 kcal/kg IBWEstimated protein needs: 84 - 1.5 grams determined by 1.2 - 1.5 IdealweightEstimated fluid needs: 2100 milliliters based on 30 mL/kgNUTRITION FOCUSED PHYSICAL EXAM:Subcutaneous Fat LossOrbital No fat lossTriceps No fat lossMid-axillary at the iliac crest Unable to determine at this timeMuscle Loss Locations:Temporalis No muscle lossPectoralis No muscle lossDeltoids Unable to determine at this timeInterosseous MildLatissimus dorsi, trapezius No muscle lossQuadriceps MildGastrocnemius MildPotential micronutrient deficiency revealed in: Unable to determine atthis timeEdema: NoAscites: NoAssessment of Functional Status: Functional capacity is unrelated tonutrition statusTemperature Max in 24 hours: Temp (24hrs), Av.7 ?C (98 ?F), Min:36.2?C (97.2 ?F), Max:37.4 ?C (99.3 ?F) BP 159/116 Pulse 80 Temp 37.1 ?C (98.8 ?F) (Temporal Artery) Resp26 Wt 105.9 kg (233 lb 7.5 oz) SpO2 96% BMI 36.03 kg/w6[facility] 343302NKAD 121*BUN 5*CREAT 0.52*NA 137K 3.4*CHLOR 102CO2 28HB 14.5HCT 42.3WBC 11.75*P 3.0MG 1.8 Potential Signs of Inflammation: leukocytosis and hyperglycemiaCurrent Facility-Administered Medications:clopidogrel 75 mg tab(s) (PLAVIX) 75 mg ORAL DAILYpotassium chloride 80-120 mEq oral liquid 80-120 mEq ORAL/FEEDING TUBE PRNpotassium chloride iv piggyback 20 mEq in sterile water 100 mL 60-120 mEqINTRAVENOUS PRNmagnesium sulfate in water 2 g in sterile water 50 ml 2 g INTRAVENOUS PRNsodium phosphate 45 mmol in NaCl 0.9% 250 mL 45 mmol INTRAVENOUS PRNcalcium gluconate 4 g in NaCl 0.9% 250 mL 4 g INTRAVENOUS PRNNaCl 0.9% iv infusion 75 mL/hr INTRAVENOUS CONTINUOUSatorvastatin 80 mg tab(s) (LIPITOR) 80 mg ORAL/FEEDING TUBE AT BEDTIMElabetalol 10 mg injection syringe (NORMODYNE) 10 mg INTRAVENOUS q 10 MINPRNacetaminophen 650 mg tab(s) (TYLENOL) 650 mg ORAL/FEEDING TUBE q 4 H PRNdocusate sodium oral liquid 100 mg/10 mL (DIOCTO,COLACE) 100 mgORAL/FEEDING TUBE BIDondansetron (PF) 4 mg injection (ZOFRAN) 4 mg INTRAVENOUS q 6 H PRNcefTRIAXone iv piggyback 1 g in dextrose (iso-osmotic) 50 mL (ROCEPHIN) 1g INTRAVENOUS q 24 Haspirin 81 mg chewable tab(s) 81 mg ORAL/FEEDING TUBE DAILYlevETIRAcetam 1,000 mg in NaCl 0.9% 100 mL (KEPPRA) 1,000 mg INTRAVENOUSBIDdextrose 40 % 15 g (INSTA-GLUCOSE) 15 g ORAL PRNOrglucagon 1 mg injection (GLUCAGEN) 1 mg INTRAMUSCULAR PRNOrdextrose 50% in water 25 mL syringe 12.5 g INTRAVENOUS PRNinsulin regular human injection (short acting) (NovoLIN R,HumuLIN R)SUBCUTANEOUS q 6 Hperflutren lipid microspheres 1.1 mg/mL 1.3 mL injection (DEFINITY) 1.3 mLINTRAVENOUS DIRECTED PRNIntake/Output 06/23/17 0700 - 06/24/17 0659 06/24/17 0700 - 06/25/17 0659 Intake (ml) 1208 578 Output (ml) -- 740 Net (ml) 1208 -162MNT Billing Type: Initial Assess/15 min 3 unitsSIGNATURE: Alyssa Reaves RD PATIENT NAME: Loc McdowellDATE: June 24, 2017 : 12:37 PM PAGER: [phone] [facility] PROCEDUREon 06-24-2017 PROCEDURE HNO ID: [id number] thor: Jameson CastroinService: Critical CareAuthor Type: PhysicianType: ProceduresFiled: 06/24/2017 9:38 PMNote Text:BEDSIDE PROCEDURE NOTEPROCEDURE DATE: June 24, 2017PROCEDURE START TIME: 900 AMPRIMARY PROCEDURALIST: ANAHI TaoISTANT(S): NoneINFORMED CONSENT: Due to emergent situation informed consent was notobtainedPROCEDURE: OROTRACHEAL INTUBATIONIndication: Airway Protection, Difficulty Breathing and Unable toOxygenate/VentilateSedation : The patient was sedated with etomidate, fentanyl and midazolam.A muscle relaxant was not administered.Equipment: Endotracheal tube, size 7 mmThe patient was administered supplemental oxygen by bag-mask ventilation.Adjunct airway equipment and suction were at the bedside and ready to use.The head was placed in the sniffing position. II - Visualized part ofcords via direct laryngoscopy. The method used for intubation was asleepintubation. A 7 mm endotracheal tube was inserted using a laryngoscopewith a 4 Paulina blade and secured at 24 cm at the teeth/gums. Placementwas confirmed with capnometer and bilateral auscultatation of breathsounds without air sounds in the abdomen.Difficulty Encountered: Anterior Larynx, Floppy Epiglottis, LaryngealEdema with very narrow airwayPatient tolerated procedure well.Complications: NoneNumber of Attempts for Intubation: 2, First attempt unsuccessful with theglidescope as I wasn't able to advance a 7.5 tube through a very narrowairwayAfter that I switched to 7 size tube and intubation was successful usingthe laryngoscopeNo Specimens Collected Unless Noted HereEstimated Blood Loss if > Minimal Noted HereSIGNATURE: Jameson Barba MD PATIENT NAME: Loc GraysonerDATE: June 24, 2017 : 9:32 PM PAGER/CONTACT #: [facility] PROGRESSon 06-24-2017 PROGRESS HNO ID: [id number] thor: Lul Romeroervice: NeurologyAuthor Type: PhysicianType: Progress NotesFiled: 06/24/2017 4:45 PMNote Text:NEURO ICU - PROGRESS NOTESERVICE DATE: 06/24/2017SERVICE TIME: 940AMObjectiveDETAILED REVIEWVITAL SIGNS (last 24hrs min/max):Temp Av.8 ?C (98.3 ?F) Min: 36.4 ?C (97.5 ?F) Max: 37.4 ?C (99.3?F)Pulse Av.5 Min: 78 Max: 111Cuff BP Min: 126/83 Max: 180/120Resp Av.4 Min: 16 Max: 38SpO2 Av.4 % Min: 92 % Max: 99 %No Data RecordedNo Data RecordedNo Data RecordedNo Data RecordedNo Data RecordedPain Score: 0/10INTAKE/OUTPUT:Intake/Outp ut Summary (Last 24 hours) at 06/24/17 1603Last data filed at 06/24/17 1300 Gross per 24 hourIntake 1786 mlOutput 825 mlNet 961 mlCSF: N/AMIVF: NS - Rate: 75ml/hrPO/TF: NPOFREE WATER: N/ABM: Has the patient had a BM in the last 24 hours? YesPHYSICAL EXAM AND PERTINENT DATANeuro: Patient is lethargic, will respond with sternal chest rub but thenbecome lethargic again. PERRLA. Patient does not track examiner. Patientdoes withdrawal with deep stimuli and retract when his right arm isabducted.CV: Regular rate and rhythm. No murmurs.Pulm: Rales on the right side. Patient is using abdominal muscles for deepbreathing.GI/: soft and non distendedSkin/Extremities: Edema- No Peripheral pulses- Present all extremitiesWounds/Drsgs- No Breakdown- NoCurrent Facility-Administered Medications:clopidogrel 75 mg tab(s) (PLAVIX) 75 mg ORAL DAILYpotassium chloride 80-120 mEq oral liquid 80-120 mEq ORAL/FEEDING TUBE PRNpotassium chloride iv piggyback 20 mEq in sterile water 100 mL 60-120 mEqINTRAVENOUS PRNmagnesium sulfate in water 2 g in sterile water 50 ml 2 g INTRAVENOUS PRNsodium phosphate 45 mmol in NaCl 0.9% 250 mL 45 mmol INTRAVENOUS PRNcalcium gluconate 4 g in NaCl 0.9% 250 mL 4 g INTRAVENOUS PRNNaCl 0.9% iv infusion 75 mL/hr INTRAVENOUS CONTINUOUSatorvastatin 80 mg tab(s) (LIPITOR) 80 mg ORAL/FEEDING TUBE AT BEDTIMElabetalol 10 mg injection syringe (NORMODYNE) 10 mg INTRAVENOUS q 10 MINPRNacetaminophen 650 mg tab(s) (TYLENOL) 650 mg ORAL/FEEDING TUBE q 4 H PRNdocusate sodium oral liquid 100 mg/10 mL (DIOCTO,COLACE) 100 mgORAL/FEEDING TUBE BIDondansetron (PF) 4 mg injection (ZOFRAN) 4 mg INTRAVENOUS q 6 H PRNcefTRIAXone iv piggyback 1 g in dextrose (iso-osmotic) 50 mL (ROCEPHIN) 1g INTRAVENOUS q 24 Haspirin 81 mg chewable tab(s) 81 mg ORAL/FEEDING TUBE DAILYlevETIRAcetam 1,000 mg in NaCl 0.9% 100 mL (KEPPRA) 1,000 mg INTRAVENOUSBIDdextrose 40 % 15 g (INSTA-GLUCOSE) 15 g ORAL PRNOrglucagon 1 mg injection (GLUCAGEN) 1 mg INTRAMUSCULAR PRNOrdextrose 50% in water 25 mL syringe 12.5 g INTRAVENOUS PRNinsulin regular human injection (short acting) (NovoLIN R,HumuLIN R)SUBCUTANEOUS q 6 Hperflutren lipid microspheres 1.1 mg/mL 1.3 mL injection (DEFINITY) 1.3 mLINTRAVENOUS DIRECTED PRNLABS: CBC, Coags, BMP, Mg, PhosRecent Labs [id number] 11.75*HB 14.5HCT 42.3PLT 256NA 137K 3.4*CHLOR 102CO2 28BUN 5*CREAT 0.52*GLUC 121*CA 8.8MG 1.8P 3.0DATA:Diagnostic tests reviewed for today's visit:Most recent labs and imaging results.Assessment/PlanCHIEF COMPLAINT: encephalopathy, acute strokeICU Admission Date: 06/23/17Principle Diagnosis and Comorbidities: acute bilateral hemispheric stroke,chronic L MCA stroke 01/25, LICA occlusion, PAD, HTN, dyslipidemia, DM, UTIActive Consults: n/aHISTORY OF PRESENT ILLNESS: Loc Mcdowell is a 67 year old right-handedmale with past medical history significant for L MCA stroke due to L ICAocclusion in 01/25, presently living in care home with flaccid Rhemiparesis and global aphasia, chronic PEG, who was found on 06/22 withAMS. Reportedly the pt usually is somewhat interactive and on 06/22 he wasunresponsive with R gaze deviation. He was brought to [facility] ED and dx withUTI, admitted for workup and monitoring; MRI done for workup ofencephalopathy showed unexpectedly bilateral hemispheric strokes. CTAshowed complete occlusion of the L ICA from its origin with short segmenthigh grade stenosis vs occlusion at the R ICA origin. Some L sided limbshaking was seen and the pt was started empirically on Keppra. [facility].HOSPITAL COURSE: Pt arrived in 3202 in good condition, no acute distress,no adverse events so far.24 HOUR EVENTS: n/aMEDICAL EVENTS: No medical events have been recorded.PLAN:Neuro:Stroke Etiology Work Up: Imaging: Await stat MRI repeat to assess for candidacy for R ICAstenting. If large hemispheric stroke in evolution, risk may outweighbenefit Blood Tests: FLP, HbA1c Other Studies: EEG orderedStroke Management: Endovascular/Surgical Intervention: Await MRI results. Dr Moyersulted for possible angiogram. ICP Management: n/aStroke Prevention: Maintain SBP<220 C/w ASA and Plavix (outpt meds)Cardiovascular: BP Management: Permissive HTNPulmonary: Elevated HOB Ok for BiPAP or supplemental O2 but avoid intubationRenal/Electrolytes: Mckeon Present: Yes, due to immobility and need for strict I/O IV Fluids: NS @ 75 ml/hrGI/Nutrition Swallow Assessment: Complete prior to diet Dysphagia Screen: Not applicable GI Prophylaxis: Not indicated Current Diet:Orders Placed This Encounter DIET NPOEndo: Glucose Controlled: YesInfectious Disease: Antibiotics: started on ceftriaxone for GNB in urine 06/22Heme/VTE: Calf SCD'sSkin/Extremities: No skin ulcers present.Lines/Access: NoneRecovery and Disposition: Will order OOB and therapies after 24 hours.PATIENT CHECKLIST? Are restraints necessary: No? VTE prophylaxis administered: Yes. Mechanical- Yes. Pharmacological- No.? On sedation: No? Patient on ventilatory support: No? Central line or arterial line present: No? Mckeon present: Yes. Able to D/C: No, close I/O monitoringPLAN:-Chest Xray order for today.-MRSA pending-Electrolyte replacement ordered.PERSONAL INVOLVEMENT IN CARE: Reviewing initiation, responses andadjustments to therapies, coordination of care, and updating updatingfamily with Staff Physician, Dr. Lul Dupree.SIGNATURE: JEAN JOHN PA-C PATIENT NAME: Loc Fox ReberDATE: June 24, 2017 : 4:03 PM PAGER/CONTACT #: [phone] STAFF ADDENDElzbieta Fernandes Theodorashae MDAwait results of angio. F/u CXR d/t concern for aspiration. C/w dualantiplatelets, permissive HTN. Ceftriaxone for UTI. Monitor in NSICU fordecompensation.PERSONAL INVOLVEMENT IN CARE:??Patient/Family Updated: Patient and/or family were updated regarding thegoals of care,?medical plan for the day, sephora operations consultant recommendations,medical disposition and current medical condition/prognosis as and ifclinically indicated. All questions and concerns were answered andaddressed at this juncture. I agree with the resident MD note as above,except as otherwise indicated; my additional comments, if necessary, arein bold.?This patient has a high probability of sudden, clinically significantdeterioration, which requires the highest level of physician preparednessto intervene urgently. I managed/supervised life or organ supportinginterventions that required frequent physician assessment. I devoted myfull attention to the direct care of this patient for the amount of timeindicated below. Time I spent with family or surrogate(s) is includedonly if the patient was incapable of providing the necessary informationor participating in medical decision making. Time devoted to teaching andto any procedures I billed separately is not included.?Critical Care Documentation: The patient has the following organ/systemimpairment(s): As aboveTime spent providing critical care services: 35 minutes.?SIGNATURE: Lul Dupree MD PATIENT NAME: Loc Fox ReberDATE: 06/24/17 : 4:44 PM PAGER/CONTACT #: [phone] [facility] PROGRESS HNO ID: [id number] thor: Emma Horner (Pharmacist)Service: PharmacyAuthor Type: PharmacistType: Progress NotesFiled: 06/24/2017 11:29 AMNote Text:MEDICATION HISTORYPatient Name:Tiny Fox ReberMRN: [id number]: 1950Source of history:half-way/Other [facility] OrderSummary ReportMedication Nonadherence Identified: No barriers notedThe above information represents the best possible medication history: YesAdditional comments:Please note the following changes made from the initial medication list:-Deleted Percocet (not a current medication)-Deleted garlic (not a current medication)-Changed Lipitor dose from 20 mg to 80 mg QHS-Changed aspirin dose from 81 mg to 162 mg dailyAllergies: ALLERGIESNo Known AllergiesCurrent SHAPER AND PRESSER Medications:Prior to Admission medications as of 06/24/17 1124Medication Sig Last Dose Takingacetaminophen (ACETAMINOPHEN EXTRA STRENGTH) 500 mg tablet 1,000 mg by PEGTube route three times daily. Yesaspirin 81 mg chewable tablet 162 mg by G-TUBE route once daily. Yesatorvastatin (LIPITOR) 80 mg tablet Take 80 mg by mouth daily at bedtime.Yesbisacodyl (DULCOLAX) 10 mg supp 10 mg by RECTAL route at bedtime as neededfor Constipation. If no BM 8 hours after MOM administration Yesmineral oil (FLEET MINERAL OIL ENEMA) enema 118 mL by RECTAL route oncedaily as needed for Constipation. If no BM 8 hours after receivingsuppository Yesgemfibrozil (LOPID) 600 mg tablet Take 600 mg by mouth twice daily beforemeals. 30 minutes before breakfast and dinner Yesmagnesium hydroxide (MILK OF MAGNESIA) 400 mg/5 mL suspension 30 mL byG-TUBE route once daily as needed for Constipation. Once daily if no BM in3 consecutive days Yesgabapentin (NEURONTIN) 300 mg/6 mL (6 mL) oral solution 300 mg by PEG Tuberoute three times daily. For neuropathic pain Jean Pierre HORNER, PHARMACISTFebruary 2017 11:25 AM [facility] Phosphorus Bloodon 8 Phosphate 3.0 mg/dL Normal 2.5-4.9 [facility] Comment on above: Performed By: #### P HOS ####[place] [id number] SOCIAL WORKon 06-24-2017 SOCIAL WORK HNO ID: [id number] thor: Arianne Talavera) SussmanService: Social WorkAuthor Type: Social WorkerType: Social WorkFiled: 06/24/2017 12:12 PMNote Text:SOCIAL WORK CONSULT NOTESERVICE DATE: 06/24/2017SERVICE TIME: 12:00 PMReferred by: Bertrand for visit:Stroke Recovery - Depression Screen Not IndicatedLiving Arrangement: nursing homeLives With:Financial Resources:Primary Contact:Extended Emergency Contact InformationPrimary Emergency Contact: Saqib Mcdowell Dpzzmr Sjuwkgcm: BrotherSupportive:Other Important Patient Contact: Brother/guardian Mary Kate [phone] Insurance:Loc Mcdowell is a 67 year old male who is on the stroke recovery team.Reviewed chart and contact brother Leonor,[phone]. He confirms that patient resides in a care home andhe is patient's guardian, appointed thru [facility] in Mar 2017.Brother will visit later today, and will bring guardianship documents forchart. He confirms patient never completed advance directive documents inpast.Social work will continue to follow.Outcome/Recommendation s:Time spent (minutes): 30SIGNATURE: DEEPTI Mcmullen PATIENT NAME: Loc GraysonerDATE: June 24, 2017 : 12:00 PM PAGER/CONTACT#: [phone] [facility] THERAPY NTon 06-24-2017 THERAPY NT HNO ID: [id number] thor: Vanna DiazCcc-Vulcanizing Press OperatorDiamond Cortes CCC/SLPService: Speech/SwallowAuthor Type: Speech Language PathologistType: Therapy (PT/OT/Speech/Resp)Filed: 06/24/2017 3:24 PMNote Text:SPEECH THERAPY MISSED VISITSERVICE DATE: 06/24/2017SERVICE TIME: 1525 to 1525ROOM: NEURO POOLAttempted Clinical Swallow Evaluation. Patient not seen due toTest/Procedure. Will assess at another date/time.SIGNATURE: YAIMA Bryson PATIENT NAME: Loc McdowellDATE: June 24, 2017 : 3:24 PM PAGER/CONTACT #: [phone] [facility] THERAPY NT HNO ID: [id number] thor: Phoebe DiazOtr/Vitor NettlesService: Occupational TherapyAuthor Type: Occupational TherapistType: Therapy (PT/OT/Speech/Resp)Filed: 06/24/2017 11:40 AMNote Text:OCCUPATIONAL THERAPY MISSED VISITSERVICE DATE: 06/24/2017SERVICE TIME: 1139 to 1139ROOM: [place] [address]Attempted Evaluation. Patient not seen due to (pt sleeping unable toarouse, to angio this pm).SIGNATURE: MARIA T Bustillo/Flash PATIENT NAME: Loc GraysonerDATE: June 24, 2017 : 11:40 AM PAGER/CONTACT #: [facility] THERAPY NT HNO ID: [id number] thor: Roselyn (Pt) Dionicioe: Physical TherapyAuthor Type: Physical TherapistType: Therapy (PT/OT/Speech/Resp)Filed: 06/24/2017 8:45 AMNote Text:PHYSICAL THERAPY MISSED VISITSERVICE DATE: 06/24/2017SERVICE TIME: 0844 to 0844ROOM: [place] [address]Attempted Evaluation. Patient not seen due to Sleeping. Called name,gave sternal rub and moved UEs--did not wake up--snoring loudly--RN awarePt going to angioplasty this pm--will wait and eval tomorrow as ableSIGNATURE: Roselyn Owusu, DEONTE PATIENT NAME: Loc GraysonerDATE: June 24, 2017 : 8:44 AM PAGER/CONTACT #: [phone] [facility] ABDOMEN 1 VIEWon 06-23-2017 ABDOMEN 1 VIEW Performed at [place] APPROVED BY: Percy Bernal MD KUB TYPE ABDOMEN: CLINICAL INDICATION: Clinical history of carotid occlusion. COMPARISON: No pertinent imaging available. Two KUB type abdomen radiographs are submitted. EKG leads overlie the lower chest. There is a gastrostomy tube with retention balloon in profile with the gastric air bubble. There is no disproportionate gaseous distention of small bowel loops. There is air throughout the colon. There are no abnormal intra-abdominal calcifications. There is a cluster of surgical clips seen along the L3 vertebral body on the left. The lateral psoas margins are visualized. Limited evaluation for free peritoneal air on supine radiographs. IMPRESSION: Gastrostomy tube. Nonobstructive bowel gas pattern. [facility] CONSULTon 06-23-2017 CONSULT HNO ID: [id number] Author: Anastasia Gambino Service: Neurosurgery Author Type: Physician Type: Consults Filed: 06/23/2017 4:26 PM Note Text: Consult dictated. [facility] CONSULT HNO ID: [id number] thor: Anastasia GambinoService: NeurosurgeryAuthor Type: PhysicianType: ConsultsFiled: 06/29/2017 12:23 PMNote Text:[facility] - ConsultationPATIENT NAME: LOC MCDOWELL MMRN: [id number] CSN: [id number] OF : 1950 SEX/AGE: M/67PATIENT TYPE: I HOSP SVC: NEUR LOCATION: [id number]/23/2017CHIEF COMPLAINT: Recent watershed infarction in the right hemisphere.CONSULTATION: I appreciate the consult. I am seeing this patient perrequest of Dr. Dupree in Neurointensive Care Unit.HISTORY OF PRESENT ILLNESS: Mr. Mcdowell is a 67-year-old male,whopresented to outside institution with sudden onset of significantleft-sided weakness and difficult to arouse. The patient was transferredto our institution this afternoon. Upon clinical examination, at thistime, the patient is difficult to arouse. He does not follow commands,and he keeps his eyes closed; however, intermittently he does open hiseyes and move his both lower extremities,especially when he was moved to the MRI machine. This made the exam timelimited. However, I reviewed the MRI that the patient just had thisafternoon, whichdemonstrate an old moderate-sized stroke in the left middle cerebralarteryterritory (for which the patient is known to be aphasic), and also thereisacute/hyperacute area of T2 short of diffusion abnormality in thewatersheddistribution of right middle cerebral artery. MR angiogram demonstratedcritical preocclusive stenosis at the right common carotidartery/internal carotid artery. At this time, the patient was juststarted on aspirin and Plavix this morning. At this time, I agree withDr. Dupree that cerebral angiography is warranted and may be to proceedwith right common carotid artery bifurcation stenting if felt feasible,to improve the flow to the patient's brain and decrease the chance ofsubsequent stroke, which may become massive and causing a significantdamage. The patient now is alone. We will try to find his family todiscuss the case and the care with them by tomorrow morning. Iappreciate consult.I spent 30 minutes reviewing the patient's chart, managing his care, anddiscussing the case with the referring team.Anastasia Gambino MDNeurologyFA:modlD: 06/23/2017 17:23:04T: 06/24/2017 00:20:24Job #: [id number] [facility] HISTORY PHYSICALon HISTORY PHYSICAL HNO ID: [id number] thor: Lul Romeroervice: NeurologyAuthor Type: PhysicianType: HANDPFiled: 06/23/2017 2:45 PMNote Text:HANDP ICU NEUROLOGYSERVICE DATE: 06/23/2017SERVICE TIME: 2:35 PMSubjectiveCHIEF COMPLAINT: encephalopathy, acute strokeICU Admission Date: 06/23/17Principle Diagnosis and Comorbidities: acute bilateral hemispheric stroke,chronic L MCA stroke 01/25, LICA occlusion, PAD, HTN, dyslipidemia, DM, UTIActive Consults: n/aHISTORY OF PRESENT ILLNESS: Loc Mcdowell is a 67 year old right-handedmale with past medical history significant for L MCA stroke due to L ICAocclusion in 01/25, presently living in care home with flaccid Rhemiparesis and global aphasia, chronic PEG, who was found on 06/22 withAMS. Reportedly the pt usually is somewhat interactive and on 06/22 he wasunresponsive with R gaze deviation. He was brought to [facility] ED and dx withUTI, admitted for workup and monitoring; MRI done for workup ofencephalopathy showed unexpectedly bilateral hemispheric strokes. CTAshowed complete occlusion of the L ICA from its origin with short segmenthigh grade stenosis vs occlusion at the R ICA origin. Some L sided limbshaking was seen and the pt was started empirically on Keppra. [facility] further care.HOSPITAL COURSE: Pt arrived in 3202 in good condition, no acute distress,no adverse events so far.24 HOUR EVENTS: n/aMEDICAL EVENTS: No medical events have been recorded.PLAN:Neuro:Stroke Etiology Work Up: Imaging: Await stat MRI repeat to assess for candidacy for R ICAstenting. If large hemispheric stroke in evolution, risk may outweighbenefit Blood Tests: FLP, HbA1c Other Studies: EEG orderedStroke Management: Endovascular/Surgical Intervention: Await MRI results. Dr Moyersulted for possible angiogram. ICP Management: n/aStroke Prevention: Maintain SBP<220 C/w ASA and Plavix (outpt meds)Cardiovascular: BP Management: Permissive HTNPulmonary: Elevated HOB Ok for BiPAP or supplemental O2 but avoid intubationRenal/Electrolytes: Mckeon Present: Yes, due to immobility and need for strict I/O IV Fluids: NS @ 75 ml/hrGI/Nutrition Swallow Assessment: Complete prior to diet Dysphagia Screen: Not applicable GI Prophylaxis: Not indicated Current Diet:Orders Placed This Encounter DIET NPOEndo: Glucose Controlled: YesInfectious Disease: Antibiotics: started on ceftriaxone for GNB in urine 06/22Heme/VTE: Calf SCD'sSkin/Extremities: No skin ulcers present.Lines/Access: NoneRecovery and Disposition: Will order OOB and therapies after 24 hours.PAST MEDICAL HISTORYDiagnosis Date- ALCOHOL ABUSE 10/29/2006- Difficult airway 06/21/2013 Grade III- HTN (hypertension)- PAD (peripheral artery disease) (HCC)- Peripheral vascular disease with claudication (HCC)- Stress hyperglycemia 06/21/2013 06/22/2013 Glucoses 160 on arrival to ICU Was started on RHI gtt perprotocol and converted to Lantus and SSI. 06/23/2013 Check RpE7y-0.5- Tobacco use disorder 10/29/2006PAST SURGICAL HISTORYProcedure Laterality Date- ARTHROSCOPY OF JOINT UNLISTED 11/25/96 LEFT ELBOW- PAST SURGICAL HISTORY OF right leg stent- PAST SURGICAL HISTORY OF 06/2013 Aortobifem bypassFAMILY HISTORYProblem Relation Age of Onset- Breast Cancer MotherSocial History Marital status: Single Spouse name: Years of education: Number of children:Social History Main Topics Smoking status: Former Smoker Packs/day: 1.50 Years: 30.00 Types: Cigarettes Quit date: 12/19/2011 Alcohol use: Yes 31.5 oz/week 21 Cans of Beer (12oz) per week Drug use: NoPTA MEDICATIONSPrescriptions Prior to Admission:Garlic 1,000 mg cap Take by mouth. Disp: Rfl:oxyCODONE-acetaminophen 5-325 mg tablet Take 1-2 tablets by mouth every 4hours as needed. Disp: 60 tablet Rfl: 0atorvastatin (LIPITOR) 20 mg tablet Take 1 tablet by mouth once daily.Disp: 90 tablet Rfl: 1Aspirin 81 mg tab Take 81 mg by mouth. Disp: Rfl: Past Week at UnknownALLERGIESNo Known AllergiesObjectiveROS: Unable to CompleteDETAILED REVIEWVITAL SIGNS (last 24hrs min/max):Temp Av.2 ?C (97.2 ?F) Min: 36.2 ?C (97.2 ?F) Max: 36.2 ?C (97.2?F)Pulse Av Min: 102 Max: 102Cuff BP Min: 156/97 Max: 156/97Resp Av Min: 26 Max: 26SpO2 Av % Min: 99 % Max: 99 %No Data RecordedNo Data Recorded No Data RecordedNo Data RecordedNo Data RecordedPain Score: 0/10INTAKE/OUTPUT No intake or output data in the 24 hours ending [id number] EXAMNeuro: Obtunded, not making eye contact, not tracking. No verbal outputor command following. R gaze preference. No blink to threat bilat. Facegrossly symmetric.CV: S1/S2 RRRPulm: Coarse BS b/lGI/: Softly distended nontender PEG in situSkin/Extremities: Edema- No Peripheral pulses- Present all extremitiesWounds/Drsgs- No Breakdown- NoMEDICATIONSCurrent Facility-Administered Medications:NaCl 0.9% iv infusion 75 mL/hr INTRAVENOUS CONTINUOUSlabetalol 10 mg injection syringe (NORMODYNE) 10 mg INTRAVENOUS q 10 MINPRNacetaminophen 650 mg tab(s) (TYLENOL) 650 mg ORAL/FEEDING TUBE q 4 H PRNondansetron (PF) 4 mg injection (ZOFRAN) 4 mg INTRAVENOUS q 6 H PRNcefTRIAXone iv piggyback 1 g in dextrose (iso-osmotic) 50 mL (ROCEPHIN) 1g INTRAVENOUS q 24 Haspirin 81 mg chewable tab(s) 81 mg ORAL/FEEDING TUBE DAILYclopidogrel 75 mg tab(s) (PLAVIX) 75 mg ORAL/FEEDING TUBE ONCELABSCBC, Coags, BMP, Mg, PhosDATA:Diagnostic tests reviewed for today's visit:Most recent labs and imaging results.Critical care time 45 minutesSIGNATURE: Lul Dupree MD PATIENT NAME: Loc McdowellDATE: June 23, 2017 : 2:34 PM PAGER/CONTACT #: [phone] [facility] HOSPon 06-23-2017 HOSP Patient:Jo Mcdowell MMRN: Height:5' 7.5(1.715 m)Weight:233 lb 7.5 oz (105.9 kg)Outpatient Medications as of 06/24/17:acetaminophen (ACETAMINOPHEN EXTRA STRENGTH) 500 mg tabletaspirin 81 mg chewable tabletatorvastatin (LIPITOR) 80 mg tabletbisacodyl (DULCOLAX) 10 mg suppmineral oil (FLEET MINERAL OIL ENEMA) enemagemfibrozil (LOPID) 600 mg tabletmagnesium hydroxide (MILK OF MAGNESIA) 400 mg/5 mL suspensiongabapentin (NEURONTIN) 300 mg/6 mL (6 mL) oral solutionAdmission/Clinic Administered Medications as of 06/24/17:clopidogrel 75 mg tab(s) (PLAVIX)potassium chloride 80-120 mEq oral liquidpotassium chloride iv piggyback 20 mEq in sterile water 100 mLmagnesium sulfate in water 2 g in sterile water 50 mlsodium phosphate 45 mmol in NaCl 0.9% 250 mLcalcium gluconate 4 g in NaCl 0.9% 250 mLNaCl 0.9% iv infusionatorvastatin 80 mg tab(s) (LIPITOR)labetalol 10 mg injection syringe (NORMODYNE)acetaminophen 650 mg tab(s) (TYLENOL)docusate sodium oral liquid 100 mg/10 mL (DIOCTO,COLACE)ondansetron (PF) 4 mg injection (ZOFRAN)cefTRIAXone iv piggyback 1 g in dextrose (iso-osmotic) 50 mL (ROCEPHIN)aspirin 81 mg chewable tab(s)levETIRAcetam 1,000 mg in NaCl 0.9% 100 mL (KEPPRA)dextrose 40 % 15 g (INSTA-GLUCOSE)glucagon 1 mg injection (GLUCAGEN)dextrose 50% in water 25 mL syringeinsulin regular human injection (short acting) (NovoLIN R,HumuLIN R)perflutren lipid microspheres 1.1 mg/mL 1.3 mL injection (DEFINITY)Problem List:PAD (peripheral artery disease) ([facility]) [I73.9]Wart [B07.9]HTN (hypertension) [I10]Hypercholesteremia [E78.00]Alcohol abuse [F10.10]Arterial vascular disease [I70.90]Smoker [F17.200]SUMMARY [V999.95]DM (diabetes mellitus) ([facility]) [E11.9]Drug reaction [T88.7XXA]Edema [R60.9]Diabetic eye exam ([facility]) [E11.9, Z01.00]Leg pain, bilateral [M79.606]Well adult exam [Z00.00]Screening for prostate cancer [Z12.5]Acute ischemic left MCA stroke ([facility]) [I63.512]Expressive aphasia [R47.01]Carotid artery, internal, occlusion, bilateral [I65.23]Carotid occlusion, bilateral [I65.23]Allergies:No Known AllergiesDate Verified:06/24/17Lab ValuesLab Value Units Date High LowPOTA* 3.4 mEq/L 06/24/2017 5.1 3.5HEMA* 42.3 % 06/24/2017 51.0 40.1Progress Notes ():Anastasia Gambino MD 06/24/2017 12:23 AM [facility]signed [facility] - ConsultationPATIENT NAME: LOC MCDOWELL MMRN: [id number] CSN: [id number] OF : 1950 SEX/AGE: M/67PATIENT TYPE: I HOSP SVC: NEUR LOCATION: [id number] COMPLAINT: Recent watershed infarction in the right hemisphere.CONSULTATION: I appreciate the consult. I am seeing this patient per requestof Dr. Dupree in Neurointensive Care Unit.HISTORY OF PRESENT ILLNESS: Mr. Mcdowell is a 67-year-old male, whopresented to outside institution with sudden onset of significant left-sidedweakness and difficult to arouse. [facility] Upon clinical examination, at this time, thepatient is difficult to arouse. He does not follow commands, and he keeps hiseyes closed; however, intermittently he does open his eyes and move his bothlower extremities,especially when he was moved to the MRI machine. This made the exam timelimited. However, I reviewed the MRI that the patient just had this afternoon,whichdemonstrate an old moderate-sized stroke in the left middle cerebral arteryterritory (for which the patient is known to be aphasic), and also there isacute/hyperacute area of T2 short of diffusion abnormality in the watersheddistribution of right middle cerebral artery. MR angiogram demonstratedcritical preocclusive stenosis at the right common carotid artery/internalcarotid artery. At this time, the patient was just started on aspirin andPlavix this morning. At this time, I agree with Dr. Dupree that cerebralangiography is warranted and may be to proceed with right common carotid arterybifurcation stenting if felt feasible, to improve the flow to the patient'sbrain and decrease the chance of subsequent stroke, which may become massiveand causing a significant damage. The patient now is alone. We will try tofind his family to discuss the case and the care with them by tomorrow morning.I appreciate consult.I spent 30 minutes reviewing the patient's chart, managing his care, anddiscussing the case with the referring team.Anastasia Gambino MDNeurologyFA:modlD: 06/23/2017 17:23:04T: 06/24/2017 00:20:24Job #: [id number] MD Jay 06/23/2017 2:45 PM SignedHANDP ICU NEUROLOGYSERVICE DATE: 06/23/2017SERVICE TIME: 2:35 PMSubjectiveCHIEF COMPLAINT: encephalopathy, acute strokeICU Admission Date: 06/23/17Principle Diagnosis and Comorbidities: acute bilateral hemispheric stroke,chronic L MCA stroke 01/25, LICA occlusion, PAD, HTN, dyslipidemia, DM, UTIActive Consults: n/aHISTORY OF PRESENT ILLNESS: Loc Mcdowell is a 67 year old right-handed malewith past medical history significant for L MCA stroke due to L ICA occlusion in01/25, presently living in care home with flaccid R hemiparesis and globalaphasia, chronic PEG, who was found on 06/22 with AMS. Reportedly the pt usuallyis somewhat interactive and on 06/22 he was unresponsive with R gaze deviation.He was brought to [facility] ED and dx with UTI, admitted for workup and monitoring;MRI done for workup of encephalopathy showed unexpectedly bilateral hemisphericstrokes. CTA showed complete occlusion of the L ICA from its origin with shortsegment high grade stenosis vs occlusion at the R ICA origin. Some L sidedlimbshaking was seen and the pt was started empirically on Keppra. [facility].HOSPITAL COURSE: Pt arrived in 3202 in good condition, no acute distress, noadverse events so far.24 HOUR EVENTS: n/aMEDICAL EVENTS: No medical events have been recorded.PLAN:Neuro:Stroke Etiology Work Up: Imaging: Await stat MRI repeat to assess for candidacy for R ICA stenting. Iflarge hemispheric stroke in evolution, risk may outweigh benefit Blood Tests: FLP, HbA1c Other Studies: EEG orderedStroke Management: Endovascular/Surgical Intervention: Await MRI results. Dr Gambino consulted forpossible angiogram. ICP Management: n/aStroke Prevention: Maintain SBP<220 C/w ASA and Plavix (outpt meds)Cardiovascular: BP Management: Permissive HTNPulmonary: Elevated HOB Ok for BiPAP or supplemental O2 but avoid intubationRenal/Electrolytes: Mckeon Present: Yes, due to immobility and need for strict I/O IV Fluids: NS @ 75 ml/hrGI/Nutrition Swallow Assessment: Complete prior to diet Dysphagia Screen: Not applicable GI Prophylaxis: Not indicated Current Diet:Orders Placed This Encounter DIET NPOEndo: Glucose Controlled: YesInfectious Disease: Antibiotics: started on ceftriaxone for GNB in urine 06/22Heme/VTE: Calf SCD'sSkin/Extremities: No skin ulcers present.Lines/Access: NoneRecovery and Disposition: Will order OOB and therapies after 24 hours.PAST MEDICAL HISTORYDiagnosis Date- ALCOHOL ABUSE 10/29/2006- Difficult airway 06/21/2013 Grade III- HTN (hypertension)- PAD (peripheral artery disease) (HCC)- Peripheral vascular disease with claudication (HCC)- Stress hyperglycemia 06/21/2013 06/22/2013 Glucoses 160 on arrival to ICU Was started on RHI gtt per protocoland converted to Lantus and SSI. 06/23/2013 Check RdO7m-7.5- Tobacco use disorder 10/29/2006PAST SURGICAL HISTORYProcedure Laterality Date- ARTHROSCOPY OF JOINT UNLISTED 11/25/96 LEFT ELBOW- PAST SURGICAL HISTORY OF right leg stent- PAST SURGICAL HISTORY OF 06/2013 Aortobifem bypassFAMILY HISTORYProblem Relation Age of Onset- Breast Cancer MotherSocial History Marital status: Single Spouse name: Years of education: Number of children:Social History Main Topics Smoking status: Former Smoker Packs/day: 1.50 Years: 30.00 Types: Cigarettes Quit date: 12/19/2011 Alcohol use: Yes 31.5 oz/week 21 Cans of Beer (12oz) per week Drug use: NoPTA MEDICATIONSPrescriptions Prior to Admission:Garlic 1,000 mg cap Take by mouth. Disp: Rfl:oxyCODONE-acetaminophen 5-325 mg tablet Take 1-2 tablets by mouth every 4 hoursas needed. Disp: 60 tablet Rfl: 0atorvastatin (LIPITOR) 20 mg tablet Take 1 tablet by mouth once daily. Disp: 90tablet Rfl: 1Aspirin 81 mg tab Take 81 mg by mouth. Disp: Rfl: Past Week at UnknownALLERGIESNo Known AllergiesObjectiveROS: Unable to CompleteDETAILED REVIEWVITAL SIGNS (last 24hrs min/max):Temp Av.2 ?C (97.2 ?F) Min: 36.2 ?C (97.2 ?F) Max: 36.2 ?C (97.2 ?F)Pulse Av Min: 102 Max: 102Cuff BP Min: 156/97 Max: 156/97Resp Av Min: 26 Max: 26SpO2 Av % Min: 99 % Max: 99 %No Data RecordedNo Data Recorded No Data RecordedNo Data RecordedNo Data RecordedPain Score: 0/10INTAKE/OUTPUT No intake or output data in the 24 hours ending 06/23/17 1434PHYSICAL EXAMNeuro: Obtunded, not making eye contact, not tracking. No verbal output orcommand following. R gaze preference. No blink to threat bilat. Face grosslysymmetric.CV: S1/S2 RRRPulm: Coarse BS b/lGI/: Softly distended nontender PEG in situSkin/Extremities: Edema- No Peripheral pulses- Present all extremitiesWounds/Drsgs- No Breakdown- NoMEDICATIONSCurrent Facility-Administered Medications:NaCl 0.9% iv infusion 75 mL/hr INTRAVENOUS CONTINUOUSlabetalol 10 mg injection syringe (NORMODYNE) 10 mg INTRAVENOUS q 10 MIN PRNacetaminophen 650 mg tab(s) (TYLENOL) 650 mg ORAL/FEEDING TUBE q 4 H PRNondansetron (PF) 4 mg injection (ZOFRAN) 4 mg INTRAVENOUS q 6 H PRNcefTRIAXone iv piggyback 1 g in dextrose (iso-osmotic) 50 mL (ROCEPHIN) 1 gINTRAVENOUS q 24 Haspirin 81 mg chewable tab(s) 81 mg ORAL/FEEDING TUBE DAILYclopidogrel 75 mg tab(s) (PLAVIX) 75 mg ORAL/FEEDING TUBE ONCELABSCBC, Coags, BMP, Mg, PhosDATA:Diagnostic tests reviewed for today's visit:Most recent labs and imaging results.Critical care time 45 minutesSIGNATURE: Lul Dupree MD PATIENT NAME: Loc CoyneTE: June 23, 2017 : 2:34 PM PAGER/CONTACT #: [phone] Gambino MD 06/23/2017 4:26 PM SignedConsult dictated.Roselyn Owusu PT 06/24/2017 8:45 AM SignedPHYSICAL THERAPY MISSED VISITSERVICE DATE: 06/24/2017SERVICE TIME: 0844 to 0844ROOM: [id number] Evaluation. Patient not seen due to Sleeping. Called name, gavesternal rub and moved UEs--did not wake up--snoring loudly--RN awarePt going to angioplasty this pm--will wait and eval tomorrow as ableSIGNATURE: Roselyn Owusu PT PATIENT NAME: Loc CoyneTE: June 24, 2017 : 8:44 AM PAGER/CONTACT #: [phone] GEORGE 06/24/2017 11:29 AM SignedMEDICATION HISTORYPatient Name:.Loc GraysonerMRN: [id number]: 1950Source of history:half-way/Other MAR - [facility] Order SummaryReportMedication Nonadherence Identified: No barriers notedThe above information represents the best possible medication history: YesAdditional comments:Please note the following changes made from the initial medication list:-Deleted Percocet (not a current medication)-Deleted garlic (not a current medication)-Changed Lipitor dose from 20 mg to 80 mg QHS-Changed aspirin dose from 81 mg to 162 mg dailyAllergies: ALLERGIESNo Known AllergiesCurrent SHAPER AND PRESSER Medications:Prior to Admission medications as of 06/24/17 1124Medication Sig Last Dose Takingacetaminophen (ACETAMINOPHEN EXTRA STRENGTH) 500 mg tablet 1,000 mg by PEG Tuberoute three times daily. Yesaspirin 81 mg chewable tablet 162 mg by G-TUBE route once daily. Yesatorvastatin (LIPITOR) 80 mg tablet Take 80 mg by mouth daily at bedtime. Yesbisacodyl (DULCOLAX) 10 mg supp 10 mg by RECTAL route at bedtime as needed forConstipation. If no BM 8 hours after MOM administration Yesmineral oil (FLEET MINERAL OIL ENEMA) enema 118 mL by RECTAL route once daily asneeded for Constipation. If no BM 8 hours after receiving suppository Yesgemfibrozil (LOPID) 600 mg tablet Take 600 mg by mouth twice daily before meals.30 minutes before breakfast and dinner Yesmagnesium hydroxide (MILK OF MAGNESIA) 400 mg/5 mL suspension 30 mL by G-TUBEroute once daily as needed for Constipation. Once daily if no BM in 3consecutive days Yesgabapentin (NEURONTIN) 300 mg/6 mL (6 mL) oral solution 300 mg by PEG Tube routethree times daily. For neuropathic pain Jean Pierre HORNER PHARMACISTFebruary 2017 11:25 RACHEL Mcguire 06/24/2017 11:40 AM SignedOCCUPATIONAL THERAPY MISSED VISITSERVICE DATE: 06/24/2017SERVICE TIME: 1139 to 1139ROOM: [id number] Evaluation. Patient not seen due to (pt sleeping unable to arouse,to angio this pm).SIGNATURE: RACHEL Bustillo PATIENT NAME: Loc GraysonerDATE: June 24, 2017 : 11:40 AM PAGER/CONTACT #:[phone] Mcmullen 06/24/2017 12:12 PM SignedSOCIAL WORK CONSULT NOTESERVICE DATE: 06/24/2017SERVICE TIME: 12:00 PMReferred by: Bertrand for visit:Stroke Recovery - Depression Screen Not IndicatedLiving Arrangement: nursing homeLives With:Financial Resources:Primary Contact:Extended Emergency Contact InformationPrimary Emergency Contact: Saqib Mcdowell Jxekva Kgwiswjo: BrothSitaupportive:Other Important Patient Contact: Brother/guardian Mary Kate [phone] Insurance:Loc Mcdowell is a 67 year old male who is on the stroke recovery team.Reviewed chart and contact brother Leonor,[phone]. He confirms that patient resides in a care home and he ispatient's guardian, appointed thru [facility] in Mar 2017. Brother willvisit later today, and will bring guardianship documents for chart. He confirmspatient never completed advance directive documents in past.Social work will continue to follow.Outcome/Recommendation s:Time spent (minutes): 30SIGNATURE: DEEPTI Mcmullen PATIENT NAME: Loc McdowellDATE: June 24, 2017 : 12:00 PM PAGER/CONTACT#: [phone] Nichols, RD, NIKKI 06/24/2017 1:26 PM SignedNUTRITION THERAPY INITIAL ASSESSMENTSERVICE DATE: 06/24/2017SERVICE TIME: 12:37 PMRECOMMENDED MALNUTRITION DIAGNOSIS: NO MALNUTRITION IDENTIFIEDNUTRITION CARE PLAN:Problem, Etiology and Signs/Symptoms:Dysphagia from previous stroke aeb peg placement. Pt receives Glucerna 1.5 TF atECF. It appears he was taking a po diet per TF orders stating he is to receive abolus of TF if he eats less than 50% of a meal.Intervention: TF recommendation when feeding starts: Isosource 1.5 @ 52 ml/hrvia peg with 175 to 200 ml flush Q 4 hrs. This will provide 1875 kcals, 85 gpro, 220 g cho, 2100 ml fld per 24 hrs. If bolus feeding desired suggest 5 bolusfeedings of Isosource 1.5 per day with ~ 200 ml flush after each bolus feeding.Pt will likely have increased insulin needs due to [facility] does not carry Glucerna1.5 and Isosource 1.5 has more carbohydrate than Glucerna.Monitor and Evaluation:Goal: Meet >75% of estimated needsMonitor fluid/electrolyte balanceMonitor labs, I/Os, vital signs, weightMonitor tolerance to tube feedingDischarge Nutrition Recommendations:Diet: to be determinedPer HPI: Loc Mcdowell is from [facility]. 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 He has right sided hemiparesisand global aphasia and a PEG tube from a previous stroke. He was diagnosed witha UTI at [facility] and an MRI showed bilateral hemispheric strokes. CTA also showedcomplete occlusion of the left ICA from its origin with a short segment of highgrade stenosis vs occlusion at the right ICA origin. Pt was started on Keppraand transferred to [facility] for further care.PAST MEDICAL HISTORYDiagnosis Date- ALCOHOL ABUSE 10/29/2006- Difficult airway 06/21/2013 Grade III- HTN (hypertension)- PAD (peripheral artery disease) (HCC)- Peripheral vascular disease with claudication ([facility])- Stress hyperglycemia 06/21/2013 06/22/2013 Glucoses 160 on arrival to ICU Was started on RHI gtt per protocoland converted to Lantus and SSI. 06/23/2013 Check VcM2y-4.5- Tobacco use disorder 10/29/2006Present Diet Order: NPO with a PEG.Nutritional Intake Prior to Admission: >75% estimated energy needs over the past4 month(s)GI symptoms: noneIs the patient having any pain that is interfering with oral/enteral intake?Unable to assessANTHROPOMETRICSAdmissio n Weight: 105.9 kg (233 lb 7.5 oz)Current Weight: 105.9 kg (233 lb 7.5 oz)Body mass index is 36.03 kg/(m2). class 2 obesityWeight has not changed significantly since 2014 or we do not have adequaterecords here.Last Wt06/23/17 : 105.9 kg (233 lb 7.5 oz)07/31/14 : 109.2 kg (240 lb 11.2 oz)01/18/14 : 103.4 kg (228 lb)09/13/13 : 98.7 kg (217 lb 9.6 oz)07/25/13 : 93.4 kg (206 lb)07/14/13 : 96.2 kg (212 lb)07/05/13 : 101.2 kg (223 lb)06/17/13 : 97.5 kg (214 lb 15.2 oz)05/23/13 : 97.5 kg (215 lb)05/20/13 : 98.9 kg (218 lb)[place] Body Weight: 70kgResting Metabolic Rate: 1815Estimated kilocalorie needs: 1750 - 1960 kilocalories determined by 25 - 28kcal/kg IBWEstimated protein needs: 84 - 1.5 grams determined by 1.2 - 1.5 [place] weightEstimated fluid needs: 2100 milliliters based on 30 mL/kgNUTRITION FOCUSED PHYSICAL EXAM:Subcutaneous Fat LossOrbital No fat lossTriceps No fat lossMid-axillary at the iliac crest Unable to determine at this timeMuscle Loss Locations:Temporalis No muscle lossPectoralis No muscle lossDeltoids Unable to determine at this timeInterosseous MildLatissimus dorsi, trapezius No muscle lossQuadriceps MildGastrocnemius MildPotential micronutrient deficiency revealed in: Unable to determine at this timeEdema: NoAscites: NoAssessment of Functional Status: Functional capacity is unrelated to nutritionstatusTemperature Max in 24 hours: Temp (24hrs), Av.7 ?C (98 ?F), Min:36.2 ?C(97.2 ?F), Max:37.4 ?C (99.3 ?F) BP 159/116 Pulse 80 Temp 37.1 ?C (98.8 ?F) (Temporal Artery) Resp 26 Wt105.9 kg (233 lb 7.5 oz) SpO2 96% BMI 36.03 kg/j3Vrylqx Labs GLUC 121*BUN 5*CREAT 0.52*NA 137K 3.4*CHLOR 102CO2 28HB 14.5HCT 42.3WBC 11.75*P 3.0MG 1.8 Potential Signs of Inflammation: leukocytosis and hyperglycemiaCurrent Facility-Administered Medications:clopidogrel 75 mg tab(s) (PLAVIX) 75 mg ORAL DAILYpotassium chloride 80-120 mEq oral liquid 80-120 mEq ORAL/FEEDING TUBE PRNpotassium chloride iv piggyback 20 mEq in sterile water 100 mL 60-120 mEqINTRAVENOUS PRNmagnesium sulfate in water 2 g in sterile water 50 ml 2 g INTRAVENOUS PRNsodium phosphate 45 mmol in NaCl 0.9% 250 mL 45 mmol INTRAVENOUS PRNcalcium gluconate 4 g in NaCl 0.9% 250 mL 4 g INTRAVENOUS PRNNaCl 0.9% iv infusion 75 mL/hr INTRAVENOUS CONTINUOUSatorvastatin 80 mg tab(s) (LIPITOR) 80 mg ORAL/FEEDING TUBE AT BEDTIMElabetalol 10 mg injection syringe (NORMODYNE) 10 mg INTRAVENOUS q 10 MIN PRNacetaminophen 650 mg tab(s) (TYLENOL) 650 mg ORAL/FEEDING TUBE q 4 H PRNdocusate sodium oral liquid 100 mg/10 mL (DIOCTO,COLACE) 100 mg ORAL/FEEDINGTUBE BIDondansetron (PF) 4 mg injection (ZOFRAN) 4 mg INTRAVENOUS q 6 H PRNcefTRIAXone iv piggyback 1 g in dextrose (iso-osmotic) 50 mL (ROCEPHIN) 1 gINTRAVENOUS q 24 Haspirin 81 mg chewable tab(s) 81 mg ORAL/FEEDING TUBE DAILYlevETIRAcetam 1,000 mg in NaCl 0.9% 100 mL (KEPPRA) 1,000 mg INTRAVENOUS BIDdextrose 40 % 15 g (INSTA-GLUCOSE) 15 g ORAL PRNOrglucagon 1 mg injection (GLUCAGEN) 1 mg INTRAMUSCULAR PRNOrdextrose 50% in water 25 mL syringe 12.5 g INTRAVENOUS PRNinsulin regular human injection (short acting) (NovoLIN R,HumuLIN R)SUBCUTANEOUS q 6 Hperflutren lipid microspheres 1.1 mg/mL 1.3 mL injection (DEFINITY) 1.3 mLINTRAVENOUS DIRECTED PRNIntake/Output 06/23/17 0700 - 06/24/17 0659 06/24/17 0700 - 06/25/17 0659 Intake (ml) 1208 578 Output (ml) -- 740 Net (ml) 1208 -162MNT Billing Type: Initial Assess/15 min 3 unitsSIGNATURE: Alyssa Reaves RD PATIENT NAME: Locneha McdowellDATE: June 24, 2017 : 12:37 PM PAGER: [phone] Normal [facility] MRI BRAIN W/O CONTRASTon MRI BRAIN W/O CONTRAST Performed at [facility] APPROVED BY: Ovi Bajwa MD EXAMINATION: MRI BRAIN W/O CONTRAST CLINICAL HISTORY: Unresponsive, history of strokes and hypertension, diabetes TECHNIQUE: Routine noncontrast brain MRI protocol including diffusion and gradient echo images. M: [id number] COMPARISON: None. RESULT: Acute Change: Scattered areas restricted diffusion throughout the right cerebral convexity frontal-parietal level. Additional scattered restricted areas of diffusion are also seen in the left middle cerebral artery distribution. Hemorrhage: Evidence of hemosiderin deposition associated with the large chronic left middle cerebral artery infarct. Mass Effect / Mass Lesion: No evidence of an intracranial mass or extra-axial fluid collection. No significant positive mass effect. Chronic /parenchymal Change: Large post infarct encephalomalacia involving left frontal-temporal region in the left middle cerebral artery distribution. Precontrast T1 hyperintense signal seen in the cortex consistent with cortical laminar necrosis. Parenchyma: Moderate degree of central atrophy Ventricles: Asymmetrically larger left lateral ventricular system especially left frontal horn secondary to post infarct encephalomalacia. Skull Base: Grossly enlarged sella turcica consistent with empty sella. Pituitary stalk is midline. Craniocervical junction is normal. No significant marrow replacement process. Vasculature: Absent normal flow void signal involving the left internal carotid artery. Normal flow void signal seen within the right internal carotid artery as well as the vertebral basilar system.No evidence of dural venous sinus thrombosis. Other: The visualized paranasal sinuses and mastoid air cells are clear. The orbits and extracranial soft tissues are unremarkable. IMPRESSION: 1.Scattered areas restricted diffusion throughout the right cerebral convexity frontal-parietal level, consistent with acute infarction. Additional scattered restricted areas of diffusion are also seen in the left middle cerebral artery distribution consistent with acute infarct components.2. Status post large post infarct. Dilation of the left frontal-temporal region and left middle cerebral artery distribution with coexisting cortical laminar necrosis.3.Absent normal flow void signal involving the left internal carotid artery. Normal flow void signal seen within the right internal carotid artery as well as the vertebral basilar system. Normal [facility] MRSA Screenon 06-23-2017 MRSA Screen Test performed at [facility] No MRSA detected. Normal [facility] Comment on above: Performed By: #### M RSA ####[facility] [place] [address] Culture, urine Bacteria identified Cx Nom (U) Staphylococcus haemolyticus [facility] Work Phone: Influenza virus A and B and SARS-CoV-2 (COVID-19) Ag panel - Upper respiratory specim SARS-CoV-2 & FLU Antigen (Rapid) Influenzae B [facility] Work Phone: Respiratory pathogens DNA an d RNA 12b panel BRET+probe (Unsp spec) Respiratory Panel (PCR) Influenza A (Subtype H1) [facility] Work Phone: Vital Signs Date Time Vital Sign Value Performing Clinician Facility 09-24-2024 13:22-0400 Diastolic blood pressure 66 mm[Hg] Dr. Marcin Joseph MD Work Phone: [facility] 09-24-2024 13:22-0400 Heart rate 72 /min Dr. Marcin Joseph MD Work Phone: [facility] 09-24-2024 13:22-0400 Respiratory rate 17 /min Dr. Marcin Joseph MD Work Phone: [facility] 09-24-2024 13:22-0400 SaO2% (BldA) [Mass fraction] 95 % Dr. Marcin Joseph MD Work Phone: [facility] 09-24-2024 13:22-0400 Systolic blood pressure 142 mm[Hg] Dr. Marcin Joseph MD Work Phone: [facility] 09-24-2024 11:46-0400 Body temperature 98 [degF] Dr. Marcin Joseph MD Work Phone: [facility] 09-24-2024 11:00-0400 Inhaled oxygen flow rate 2 L/min Dr. Marcin Joseph MD Work Phone: [facility] 09-24-2024 09:52-0400 Body height 172.[address] Marcin Joseph MD Work Phone: [facility] 09-24-2024 09:52-0400 Body mass index (BMI) [Ratio] 45.3 kg/m2 Dr. Marcin Joseph MD Work Phone: [facility] 09-24-2024 09:52-0400 Body weight 135.[address] Marcin Joseph MD Work Phone: [facility] 07-10-2023 20:04-0500 Body temperature 97.9 [degF] Dr. Marcin Joseph Work Phone: [facility] 07-10-2023 20:04-0500 Diastolic blood pressure 72 mm[Hg] Dr. Marcin Joseph Work Phone: [phone] [place] [address] 07-10-2023 20:04-0500 Heart rate 78 /min Dr. Marcin Joseph Work Phone: [phone] [place] [address] 07-10-2023 20:04-0500 Respiratory rate 16 /min Dr. Marcin Joseph Work Phone: [facility] 07-10-2023 20:04-0500 SaO2% (BldA) [Mass fraction] 97 % Dr. Marcin Joseph Work Phone: [facility] 07-10-2023 20:04-0500 Systolic blood pressure 134 mm[Hg] Dr. Marcin Joseph Work Phone: [facility] 07-10-2023 15:46-0500 Body height 172.[address] Marcin Joseph Work Phone: [facility] 07-10-2023 15:46-0500 Body mass index (BMI) [Ratio] 44.9 kg/m2 Dr. Marcin Joseph Work Phone: [facility] 07-10-2023 15:46-0500 Body weight 134.[address] Marcin Joseph Work Phone: [facility] 02-19-2023 15:19-0400 Body temperature 98.5 [degF] [facility] 02-19-2023 15:19-0400 Diastolic blood pressure 58 mm[Hg] [facility] 02-19-2023 15:19-0400 Heart rate 78 /min [facility] 02-19-2023 15:19-0400 Respiratory rate 15 /min [facility] 02-19-2023 15:19-0400 SaO2% (BldA) [Mass fraction] 94 % [facility] 02-19-2023 15:19-0400 Systolic blood pressure 124 mm[Hg] [facility] 02-19-2023 10:11-0400 Body height 172.72 cm [facility] 02-19-2023 10:11-0400 Body mass index (BMI) [Ratio] 44 kg/m2 [facility] 02-19-2023 [id number] Body weight 131.4 kg [facility] 05-11-2022 14:34-0500 Body temperature 97.9 [degF] Dr. Marcin Joseph Work Phone: [facility] Work Phone: 05-11-2022 14:34-0500 Diastolic blood pressure 61 mm[Hg] Dr. Marcin Joseph Work Phone: [facility] Work Phone: 05-11-2022 14:34-0500 Heart rate 84 /min Dr. Marcin Joseph Work Phone: [facility] Work Phone: 05-11-2022 14:34-0500 Respiratory rate 18 /min Dr. Marcin Joseph Work Phone: [facility] Work Phone: 05-11-2022 14:34-0500 SaO2% (BldA) [Mass fraction] 96 % Dr. Marcin Joseph Work Phone: [facility] Work Phone: 05-11-2022 14:34-0500 Systolic blood pressure 150 mm[Hg] Dr. Marcin Joseph Work Phone: [facility] Work Phone: 05-11-2022 11:19-0500 Inhaled oxygen concentration 60 % Dr. Marcin Joseph Work Phone: [facility] Work Phone: 05-11-2022 08:49-0500 Inhaled oxygen flow rate 2 L/min Dr. Marcin Joseph Work Phone: [facility] Work Phone: 05-11-2022 07:55-0500 Body weight [address] Marcin Joseph Work Phone: [facility] Work Phone: 05-10-2022 16:22-0500 Body height 172.[address] Marcin Joseph Work Phone: [facility] Work Phone: 05-08-2022 18:26-0500 Body mass index (BMI) [Ratio] 42.2 kg/m2 Dr. Marcin Joseph Work Phone: [facility] Work Phone: 05-08-2022 16:06-0500 Body temperature 98.1 [degF] Dr. Marcin Joseph Work Phone: [facility] Work Phone: 05-08-2022 16:06-0500 Diastolic blood pressure 77 mm[Hg] Dr. Marcin Joseph Work Phone: [facility] Work Phone: 05-08-2022 16:06-0500 Heart rate 98 /min Dr. Marcin Joseph Work Phone: [facility] Work Phone: 05-08-2022 16:06-0500 Inhaled oxygen flow rate 15 L/min Dr. Marcin Joseph Work Phone: [facility] Work Phone: 05-08-2022 16:06-0500 Respiratory rate 29 /min Dr. Marcin Joseph Work Phone: [facility] Work Phone: 05-08-2022 16:06-0500 SaO2% (BldA) [Mass fraction] 98 % Dr. Marcin Joseph Work Phone: [facility] Work Phone: 05-08-2022 16:06-0500 Systolic blood pressure 145 mm[Hg] Dr. Marcin Joseph Work Phone: [facility] Work Phone: 05-08-2022 13:34-0500 Inhaled oxygen concentration 50 % Dr. Marcin Joseph Work Phone: [facility] Work Phone: 05-08-2022 13:03-0500 Body height 172.[address] Marcin Joseph Work Phone: [facility] Work Phone: 05-08-2022 13:03-0500 Body mass index (BMI) [Ratio] 43.1 kg/m2 Dr. Marcin Joseph Work Phone: [facility] Work Phone: 05-08-2022 13:03-0500 Body weight 128.[address] Marcin Joseph Work Phone: [facility] Work Phone: 05-07-2022 08:08-0500 Diastolic blood pressure 64 mm[Hg] [facility] Work Phone: 05-07-2022 08:08-0500 Systolic blood pressure 117 mm[Hg] [facility] Work Phone: 05-07-2022 07:46-0500 Body temperature 98 [degF] [facility] Work Phone: 05-07-2022 07:46-0500 Heart rate 96 /min [facility] Work Phone: 05-07-2022 07:46-0500 Respiratory rate 26 /min [facility] Work Phone: 05-07-2022 07:46-0500 SaO2% (BldA) [Mass fraction] 95 % [facility] Work Phone: 05-07-2022 06:09-0500 Body height 172.72 cm [facility] Work Phone: 05-07-2022 06:09-0500 Body mass index (BMI) [Ratio] 43.4 kg/m2 [facility] Work Phone: 05-07-2022 06:09-0500 Body weight 129.72 kg [facility] Work Phone: 05-07-2022 06:09-0500 Inhaled oxygen flow rate 4 L/min [facility] Work Phone: 10-28-2021 14:00-0400 Body temperature 97.7 [degF] [facility] Work Phone: 10-28-2021 14:00-0400 Diastolic blood pressure 78 mm[Hg] [facility] Work Phone: 10-28-2021 14:00-0400 Heart rate 64 /min [facility] Work Phone: 10-28-2021 14:00-0400 SaO2% (BldA) [Mass fraction] 97 % [facility] Work Phone: 10-28-2021 14:00-0400 Systolic blood pressure 159 mm[Hg] [facility] Work Phone: 10-28-2021 11:59-0400 Body temperature 97.3 [degF] [facility] Work Phone: 10-28-2021 11:59-0400 Diastolic blood pressure 73 mm[Hg] [facility] Work Phone: 10-28-2021 11:59-0400 Heart rate 68 /min [facility] Work Phone: 10-28-2021 11:59-0400 Respiratory rate 16 /min [facility] Work Phone: 10-28-2021 11:59-0400 Systolic blood pressure 151 mm[Hg] [facility] Work Phone: 10-28-2021 11:57-0400 Body height 172.72 cm [facility] Work Phone: 10-28-2021 11:57-0400 Body mass index (BMI) [Ratio] 41.9 kg/m2 [facility] Work Phone: 10-28-2021 11:57-0400 Body weight 125.01 kg [facility] Work Phone: 10-28-2021 09:35-0400 SaO2% (BldA) [Mass fraction] 96 % [facility] Work Phone: Encounters Encounter Date Encounter Type Care Provider Facility Start: 09-24-2024 End: 09-24-2024 Emergency department patient visit Dr. Marcin Joseph MD Work Phone: -Emergency Department Work Phone: Start: 12-29-2023 End: 12-29-2023 Emergency department patient visit [facility] Facility:[facility] Start: 07-10-2023 Non-patient / Non-visit Dr. Reinaldo Joseph Work Phone: [facility] Start: 07-10-2023 End: 07-10-2023 Emergency department patient visit Dr. Marcin Joseph Work Phone: [facility] Work Phone: Start: 02-19-2023 End: 02-19-2023 Emergency department patient visit [facility] Work Phone: Start: 05-11-2022 Non-patient / Non-visit Dr. Reinaldo Joseph Work Phone: [facility] Start: 05-11-2022 Non-patient / Non-visit Dr. Reinaldo Joseph Work Phone: [facility] Start: 05-10-2022 Non-patient / Non-visit Dr. Reinaldo Joseph Work Phone: [facility] Start: 05-10-2022 Non-patient / Non-visit Dr. Reinaldo Joseph Work Phone: [facility] Start: 05-09-2022 Non-patient / Non-visit Dr. Reinaldo Joseph Work Phone: [facility] Start: 05-09-2022 Non-patient / Non-visit Dr. Reinaldo Joseph Work Phone: [facility] Start: 05-08-2022 Non-patient / Non-visit Dr. Reinaldo Joseph Work Phone: [facility] Start: 05-08-2022 End: 05-11-2022 Evaluation and management of inpatient Dr. Marcin Joseph Work Phone: [facility] 3 Start: 05-07-2022 End: 05-07-2022 Emergency department patient visit [facility]Emer[facility] Start: 10-28-2021 End: 10-28-2021 Admission to same day surgery center [facility] Start: 06-23-2017 End: 06-30-2017 Evaluation and management of inpatient [facility] Procedures Date Procedure Procedure Detail Performing Clinician Start: 09-24-2024 CT of chest without contrast Dr. Marcin storm MD Work Phone: Start: 02-19-2023 SARS-CoV-2 & FLU Antigen (Rapid) Start: 02-19-2023 Plain chest X-ray Start: 05-09-2022 Plain chest X-ray Dr. Marcin Joseph Work Phone: Start: 05-08-2022 Plain chest X-ray Dr. Marcin Joseph Work Phone: Start: 05-07-2022 Plain chest X-ray Start: 10-28-2021 Esophagogastroduodenoscopy H/O: gastrostomy Status post ins ertion of percutaneous endoscopic gastrostomy (PEG) tube Respiratory Panel (PCR) Dr. Marcin Joseph Work Phone: SARS-CoV-2 & FLU Antigen (Rapid) Urine culture Dr. Marcin Lee en Work Phone: Plan of Treatment Date Care Activity Detail Author Start: 09-24-2024 [facility] Start: 07-10-2023 [facility] Start: 02-19-2023 Bacteria identified in Blood by Culture Blood Culture [facility] Start: 02-19-2023 Bacteria identified in Urine by Culture Urine Culture [facility] Start: 02-19-2023 [facility] Start: 02-19-2023 [facility] Start: 02-19-2023 Blood culture [facility] Start: 02-19-2023 [facility] Start: 05-12-2022 Swallowing Function w/Video Swallowing Function w/Video [facility] Work Phone: Start: 05-12-2022 Videoswallow [facility] Work Phone: Start: 05-11-2022 Patient discharge [facility] Work Phone: Start: 05-10-2022 [facility] Work Phone: Start: 05-10-2022 [facility] Work Phone: Start: 05-09-2022 Care planning and problem solving actions [facility] Work Phone: Start: 05-09-2022 Referral to occupational therapist [facility] Work Phone: Start: 05-09-2022 Referral to service [facility] Work Phone: Start: 05-09-2022 Speech therapy assessment [facility] Work Phone: Start: 05-09-2022 Bacteria identified in Sputum by Culture [facility] Work Phone: Start: 05-09-2022 Incentive spirometry [facility] Work Phone: Start: 05-09-2022 Consultation [facility] Work Phone: Start: 05-09-2022 Continuous positive airway pressure ventilation treatment [facility] Work Phone: Start: 05-08-2022 Cardiac monitoring [facility] Work Phone: Start: 05-08-2022 Airway suction technique [facility] Work Phone: Start: 05-08-2022 Application of intermittent pneumatic compression device [facility] Work Phone: Start: 05-08-2022 Ambulation without limitation [facility] Work Phone: Start: 05-08-2022 Assessment of risk of venous thromboembolism [facility] Work Phone: Start: 05-08-2022 Care regimes management [facility] Work Phone: Start: 05-08-2022 Inhalation therapy procedure [facility] Work Phone: Start: 05-08-2022 Insertion of catheter into peripheral vein [facility] Work Phone: Start: 05-08-2022 Oxygen therapy [facility] Work Phone: Start: 05-08-2022 Physiotherapy of chest [facility] Work Phone: Start: 05-08-2022 Providing care according to standard [facility] Work Phone: Start: 05-08-2022 Referral to service [facility] Work Phone: Start: 05-08-2022 Respiratory secretion precautions [facility] Work Phone: Start: 05-08-2022 [facility] Work Phone: Start: 05-08-2022 Following clinical pathway protocol [facility] Work Phone: Start: 05-08-2022 [facility] Work Phone: Start: 05-08-2022 Admission procedure [facility] Work Phone: Start: 05-08-2022 Verification routine [facility] Work Phone: Start: 05-08-2022 End: 05-09-2022 [facility] Work Phone: Start: 05-08-2022 End: 05-08-2022 Blood culture [facility] Work Phone: Start: 05-08-2022 Patient referral to dietitian [facility] Work Phone: Start: 05-07-2022 [facility] Work Phone: Start: 05-07-2022 End: 05-07-2022 Blood culture [facility] Work Phone: Start: 10-28-2021 Esophagogastroduodenoscopy EGD ([facility]) (Not Applicable) [facility] Work Phone: Start: 10-28-2021 Blood chemistry [facility] Work Phone: Start: 10-28-2021 Patient discharge [facility] Work Phone: Anion gap measurement [facility] Work Phone: Bacteria identified in Blood by Culture Blood Culture [facility] Work Phone: Bacteria identified in Urine by Culture Urine Culture [facility] Work Phone: Blood culture [facility] Work Phone: BUN/Creatinine ratio [facility] Work Phone: Calcium [Mass/volume ] in Serum or Plasma [facility] Work Phone: Carbon dioxide, tota l [Moles/volume] in Serum or Plasma [facility] Work Phone: Chloride [Moles/volu me] in Serum or Plasma [facility] Work Phone: Creatinine [Moles/vo lume] in Serum or Plasma [facility] Work Phone: Glucose [Mass/volume ] in Serum or Plasma [facility] Work Phone: Measurement of renal function [facility] Work Phone: Patient Education [facility] Work Phone: Patient referral [facility] Work Phone: Potassium [Moles/vol ume] in Serum or Plasma [facility] Work Phone: Sodium [Moles/volume ] in Serum or Plasma [facility] Work Phone: Urea nitrogen [Mass/ volume] in Serum or Plasma [facility] Work Phone: Urine culture Urine Culture [facility] Work Phone: Immunizations Immunization Date Immunization Notes Care Provider Fa [facility] 12-24-2019 influenza, injectabl e, quadrivalent, preservative free [facility] 12-24-2019 influenza, seasonal, injectable [facility] Work Phone: 03-02-2017 Influenza virus vaccine [facility] Payers Date Payer Category Payer Medicaid [id number] 2023 Self-pay [id number] Unknown [id number] 2010 Unknown [id number] 2010 Unknown [facility] [id number] Medicare [id number] Medicare [id number] Unknown [id number] Unknown [id number] Social History Date Type Detail Facility Start: 10-28-2021 End: 07-10-2023 Tobacco smoking status NHIS Unknown if ever smoked [facility] Start: 03-15-2020 None [facility] Start: 03-15-2020 Long Term [facility] Start: 10-08-2017 Non-smoker [facility] Start: 1950 Sex Assigned At Male [facility] Start: 09-24-2024 Tobacco smoking stat us NHIS Never smoked tobacco (finding) [facility] Medical Equipment Procedure Code Equipment Code Equipment Origin al Text Equipment Identifier Dates EGD, with monitored anesthesia care TRAY,PEG EFIT SFTY PULL 20FR FDA Start: 10-28-2021 EGD, with monitored anesthesia care TRAY,PEG EFIT SFTY PULL 20FR FDA Start: 10-28-2021 EGD, with monitored anesthesia care TRAY,PEG EFIT SFTY PULL 20FR FDA Start: 10-28-2021 EGD, with monitored anesthesia care TRAY,PEG EFIT SFTY PULL 20FR FDA Start: 10-28-2021 EGD, with monitored anesthesia care TRAY,PEG EFIT SFTY PULL 20FR FDA Start: 10-28-2021 EGD, with monitored anesthesia care TRAY,PEG EFIT SFTY PULL 20FR FDA Start: 10-28-2021 Goals Date Patient Goal Desired Activity /State Functional Status Date Assessment Result Facility 05-11-2022 Functional status Bedrest [facility] Work Phone: Mental Status Date Assessment Result Facility 07-10-2023 Cognitive function Level Of Cons ciousness Awake;Alert [facility] Work Phone: 05-11-2022 Cognitive function Touch/Shaking [facility] Work Phone: 05-10-2022 Cognitive function Unable to Comprehend [facility] Work Phone: 05-07-2022 Cognitive function Level Of Cons ciousness Lethargic [facility] Work Phone: 10-28-2021 Cognitive function Voice/Name [facility] Work Phone: 10-28-2021 Cognitive function Level Of Cons ciousness Awake;Alert;Appropriate;Follow s Commands [facility] Work Phone: Radiology Diagnostic study note 09-24-2024 Note Date & Type Note Facility 09-24-2024 Radiology Diagnostic study note [facility] Imaging Services [address] [place] [address] Chest without Contrast MR#: [id number] Acct: [id number] Name: LOC MCDOWELL Rep #: [id number] : 1950 M 74 From: Lucita Ortega MD PCP: Dr. Marcin Joseph MD Status: REG E R Study:Chest without Contrast Date of Exam: 09/24/24 Exam# [id number] Ordering Dr: Nahid Ortega DO EXAM: CT Chest Without Intravenous Contrast CLINICAL INDICATION: RIGHT POST THORACIC INJURY TECHNIQUE: Axial computed tomography images of the chest without intravenous contrast. This CT exam was performed using one or more of the following dose reduction techniques: automated exposure control, adjustment of the mA and/or kV according to patient size, and/or use of iterative reconstruction technique. COMPARISON: No relevant prior studies available. FINDINGS: LUNGS AND PLEURAL SPACES: Lung emphysema/COPD. No consolidation. No pneumothorax. No significant effusion. HEART: Unremarkable. No cardiomegaly. No significant pericardial effusion. No significant coronary artery calcifications. MEDIASTINUM: A few prominent mediastinal lymph nodes measuring up to 6 mm. Small esophageal hiatal hernia. BONES/JOINTS: Cortical irregularity of the left 10th, 9th and 8th ribs could benondisplaced fractures. Clinical correlation is recommended. No dislocation. SOFT TISSUES: Unremarkable. VASCULATURE: Scattered calcified atherosclerotic disease of aorta. No thoracicaortic aneurysm. LYMPH NODES: See above. CT/Chest without Contrast IMPRESSION: 1. Cortical irregularity of the left 10th, 9th and 8th ribs could be nondisplaced fractures. Clinical correlation is recommended. 2. Small esophageal hiatal hernia. 3. Lung emphysema/COPD. Reading Location: [facility] CC: Dr. Marcin Joseph MD; Dr. Nahid Ortega DO ~ [employer] Operator: Signed [facility] Discharge summary 02-19-2023 Note Date & Type Note Facility 02-19-2023 Discharge summary Note Date/Time February 19, 2023 10:29am [facility] Medical Records Department [address] [place] [address] Emergency Department Summary 02/19/23 MR#: [id number] Acct: [id number] Name: LOC MCDOWELL Rep #:[id number] : 1950 72 From: Alen Nunez DO PCP: Dr. Marcin Joseph MD Status:REG E R Location: ED HPI History of Present Illness Chief Complaint: Shortness of Breath Narrative Narrative: Patient is a 72-year-old male who is nonverbal with global aphasia secondary to a stroke, hyperlipidemia, dysphagia, hypertension presenting with dyspnea. He is from [facility]. [facility] Medical History Anxiety Aphasia Apraxia Convulsions Depression Diabetes Dysphagia Encounter for attention to gastrostomy Heart disease Hemiplegia Hyperlipemia Hypertension PEG (percutaneous endoscopic gastrostomy) adjustment/replacement/removal Peripheral vascular disease Sleep apnea Stroke/cerebrovascular accident Home Medications gemfibrozil 600 mg tablet 600 mg G-tube BIDAC CHOLESTEROL 05/11/17 [History Last Taken 08/26/22] clopidogrel 75 mg tablet 75 mg G-tube DAILY Blood thinner 08/16/17 [History Last Taken 08/26/22] atorvastatin 80 mg tablet 80 mg G-tube QHS Cholesterol 10/07/17 [History Last Taken 08/25/22] ezetimibe 10 mg tablet 10 mg GT QHS CHOLESTEROL 01/14/19 [History Last Taken 08/25/22] acetaminophen 500 mg tablet 1,000 mg feeding tube Q8H PAIN ##0 03/15/20 [History Last Taken 08/26/22] cilostazol 100 mg tablet 100 mg GT BID PAD 03/15/20 [History Last Taken 08/26/22] insulin glargine 100 unit/mL (3 mL) subcutaneous pen (Lantus Solostar U-100 Insulin) 25 units subcut QHS DM 03/15/20 [History Last Taken 08/25/22] insulin lispro 100 unit/mL subcutaneous cartridge 15 unit subcut TIDCM DM 03/15/20 [History Last Taken 08/26/22] insulin lispro 100 unit/mL subcutaneous cartridge See Protocol SC TIDCM DM 03/15/20 [History Last Taken 08/26/22] levetiracetam 500 mg tablet 500 mg GT DAILY@1600 SEIZURES 03/15/20 [History Last Taken 08/25/22] levetiracetam 750 mg tablet 750 mg GT BID SEIZURES 03/15/20 [History Last Taken 08/26/22] aspirin 81 mg tablet,delayed release 81 mg feeding tube DAILY CAD 04/25/21 [History Last Taken 08/26/22] citalopram 10 mg tablet 10 mg feeding tube DAILY DEPRESSION 04/25/21 [History Last Taken 08/26/22] losartan 50 mg tablet 50 mg feeding tube DAILY HTN 04/25/21 [History Last Taken 08/26/22] acetaminophen 650 mg/20.3 mL oral suspension 650 mg PO Q4H PRN PAIN/FEVER 10/28/21 [History Last Taken 08/25/22] aluminum-mag hydroxide-simethicone 200 mg-200 mg-20 mg/5 mL oral susp (Tari-Lanta) 10 ml feeding tube TID PRN BLOATING 10/28/21 [History Last Taken 08/25/22] gabapentin 300 mg capsule 300 mg feeding tube TID NEUROPATHY 08/26/22 [History Last Taken 08/26/22] amoxicillin 875 mg-potassium clavulanate 125 mg tablet 1 tab PO BID 5 days #10 tabs 08/28/22 [Rx Last Taken Unknown] menthol 0.44 %-zinc oxide 20.6 % topical ointment (Calmoseptine) 1 applic topical BID #0 grams 08/28/22 [Rx Last Taken Unknown] oseltamivir 75 mg capsule (Tamiflu) 75 mg PO BID 5 days #10 caps 02/19/23 [Rx Last Taken Unknown] Allergy/AdvReac Type Severity Reaction Status Date / Time No Known Allergies Allergy Verified 10/28/21 09:43 Surgical History Status post abdominal aortic aneurysm repair Social History Smoking Status: Never smoker substance use type: does not use ROS ROS ED Review of Systems ROS Unobtainable: due to mental status EXAM Physical Exam Const Vital Signs: 02/19/23 10:11 02/19/23 10:15 02/19/23 10:15 Temperature 97.8 F Temperature Source Temporal Pulse Rate 89 Respiratory Rate 21 H Respiratory Effort Normal Respiratory Depth Normal Respiratory Pattern Normal Blood Pressure Blood Pressure Mean Pulse Ox 92 90 Oxygen Delivery Method Room Air Room Air Room Air 02/19/23 11:14 02/19/23 13:41 Temperature 97.4 F L Temperature Source Oral Pulse Rate 78 77 Respiratory Rate 15 12 Respiratory Effort Respiratory Depth Respiratory Pattern Blood Pressure 124/58 H 127/66 H Blood Pressure Mean 80 86 Pulse Ox 94 96 Oxygen Delivery Method Room Air Room Air General Appearance ED: NAD HEENT Reports dry mucous membranes Mouth ED: Yes dry mucous membranes Mouth: dry mucous membranes Eyes PERRL and EOMs intact bilaterally Chest Wall inspection of chest normal Cardio regular rate and regular rhythm GI normal to inspection, nondistended, normoactive bowel sounds Neuro Sensorium / Orientation: alert Motor Exam: general weakness Skin no wounds MDM MDM MDM Narrative Medical decision making narrative: Patient presents with concern for shortness of breath for the last couple of days. This is what is in his transfer paperwork. He appears he had an x-ray performed yesterday which was negative. Patient is unable to give much history because he is nonverbal. Differential includes UTI, pneumonia, COVID, influenza, dehydration, electrolyte abnormalities. Patient has history of sepsis and I am unable to determine if the patient has had a fever, however he is tachypneic and his pulse ox is 90 to 92% so a sepsis work-up was undertaken. We will obtain a chest x-ray and urinalysis as well. COVID and flu swab will beobtained. CBC shows no leukocytosis. White cell count is 6.0. Hemoglobin stable 13.6. Platelets are normal at 180. Creatinine slightly elevated 1.37 sohe was given a liter of normal saline. Lactic acid normal at 1.5. LFTs are normal. Urinalysis negative for infection. COVID was negative. Patient swabbed and positive for influenza A but a second swab was performed accidentally which is positive for influenza B. I spoke with Dr. Joseph who sid-call and is the patient's physician and he recommended putting the patient onTamiflu. Chest x-ray my interpretation shows no acute process. Radiologist interprets this and agrees. EKG normal sinus rhythm with a ventricular rate of 85 bpm without sign of ischemic change or ectopy on my interpretation. Impression: 1. Dehydration 2. Influenza Lab Data Labs: Laboratory Results - last 24 hr 02/19/23 02/19/23 10:50 11:30 WBC 6.0 RBC 4.50 L Hgb 13.6 Hct 42.2 MCV 93.8 MCH 30.2 MCHC 32.2 RDW Std Deviation 46.9 H RDW Coeff of Corinne 13.6 Plt Count 180 MPV 9.0 Immature Gran % (Auto) 0.200 Neut % (Auto) 61.5 Lymph % (Auto) 17.4 L [place] % (Auto) 15.0 H Eos % (Auto) 5.1 H Baso % (Auto) 0.8 Absolute Neuts (auto) 3.7 Absolute Lymphs (auto) 1.05 Nucleated RBC % 0 PT 13.2 INR 1.0 APTT 24.8 Sodium 137 Potassium 3.7 Chloride 105 Carbon Dioxide 27.0 Anion Gap 5 BUN 31 H Creatinine 1.37 H Estim Creat Clear Calc 48.54 Est GFR (MDRD) Af Amer 66 Est GFR (MDRD) Non-Af 55 L BUN/Creatinine Ratio 22.6 H Glucose 262 H Lactic Acid 1.5 Calcium 8.3 L Total Bilirubin 0.40 AST 13 L ALT 27 Alkaline Phosphatase 87 Troponin I High Sens 16 Total Protein 6.9 Albumin 3.2 Globulin 3.7 Albumin/Globulin Ratio 0.9 Urine Color Yellow Urine Clarity Clear Urine pH 5.0 Ur Specific Kelliher 1.025 Urine Protein 15 H Urine Glucose (UA) 250 H Urine Ketones Negative Urine Occult Blood Negative Urine Nitrite Negative Urine Bilirubin Negative Urine Urobilinogen Normal Ur Leukocyte Esterase Negative Urine RBC 0 SEEN Urine WBC 0 SEEN Ur Squamous Epith Cells 0-5 SEEN Urine Bacteria 0 SEEN Urine Mucus 0 SEEN Radiography Diagnostic Testing: Clinical Impression(s) from Imaging Studies Chest X-Ray 02/19/23 10:55 IMPRESSION: No acute cardiopulmonary process identified. Electronically Signed: Megan Meek MD at 11:11 EDT , Discharge Plan Triage Chief Complaint: Shortness of Breath ED Provider: Alen Nunez Dx/Rx/DC Orders Instructions: ED Influenza (Adult) Prescriptions: New oseltamivir [Tamiflu] 75 mg capsule 75 mg PO BID 5 Days Qty: 10 0RF No Action gemfibrozil 600 MG tablet 600 mg G-tube BIDAC clopidogrel 75 MG tablet 75 mg G-tube DAILY Patient Comments: Blood thinner atorvastatin 80 MG tablet 80 mg G-tube QHS Patient Comments: Cholesterol ezetimibe 10 MG tablet 10 mg GT QHS levetiracetam 750 MG tablet 750 mg GT BID insulin lispro 100 UNIT/ML cartridge 15 unit SC TIDCM insulin glargine [Lantus Solostar U-100 Insulin] 100 UNITS/ML insulin pen 25 units SC QHS insulin lispro 100 UNIT/ML cartridge See Protocol SC TIDCM Protocol: 6. Sliding Scale Insulin Custom Condition: mg/dl range Dose/Route: Number of Units Condition: 151-200 Dose/Route: 2 Condition: 201-250 Dose/Route: 4 Condition: 251-300 Dose/Route: 6 Condition: 301-350 Dose/Route: 8 Condition: 351-400 Dose/Route: 10 Condition: 401-600 Dose/Route: 12 Instruction: CALL MD Protocol Text: Custom Sliding Scale cilostazol 100 MG tablet 100 mg GT BID levetiracetam 500 MG tablet 500 mg GT DAILY@1600 acetaminophen 500 mg Tablet 1,000 mg feeding tube Q8H Qty: 0 losartan 50 mg tablet 50 mg feeding tube DAILY citalopram 10 mg tablet 10 mg feeding tube DAILY aspirin 81 mg Tablet,Delayed Release (Dr/Ec) 81 mg feeding tube DAILY alum-mag hydroxide-simeth [Tari-Lanta] 200-200-20 mg/5 mL Suspension 10 ml feeding tube TID PRN (Reason: BLOATING) acetaminophen 650 mg/20.3 mL Suspension 650 mg PO Q4H PRN (Reason: PAIN/FEVER) gabapentin 300 mg capsule 300 mg feeding tube TID menthol-zinc oxide [Calmoseptine] 0.44-20.6 % Ointment 1 applic topical BID Qty: 0 0RF Protocol: *Topical Application Instructions APPLICATION INSTRUCTIONS: affected area amoxicillin-pot clavulanate 875-125 mg tablet 1 tab PO BID 5 Days Qty: 10 0RF Primary Care Provider: Marcin Joseph Referrals: Marcin Joseph MD [Primary Care Provider] - What to do if you have Problems For any increased pain, shortness of breath, bleeding, nausea or vomiting, chestpain, or any unexpected problems, contact your Primary Care Provider. Call [facility] ([phone]) or report to the closest Emergency Room. Call 911 if necessary. 02/19/23 9468 <Electronically signed by Alen Nunez DO> Cosigner Signature (if applicable): CC: Dr. Marcin Joseph MD ~ Signed [facility] Work Phone: Consult note Note Date & Type Note Facility Consult note Note Date/Time July 10, 2023 7:10pm [facility] Medical Records Department [address] [place] [id number] Consultation - Surgical 07/10/23 190 MR#: [id number] Acct: [id number] Name: LOC MCDOWELL Rep #:[id number] : 1950 73 From: Eddy flores MD PCP: Dr. Marcin Joseph MD Status:REG E R Location: ED Assessment & Plan Assessment/Plan (1) PEG tube malfunction: PLAN: The patient's PEG tube appears to be very old. It is very broken down andthe tip of it is broken. I discussed this with him and offered to replace his G-tube for him. I discussed the risks of bleeding and infection and the patientagreed to proceed. I removed his old externally removable PEG tube and through the tract I placed anew 20 Bah[place]ian replacement feeding tube and inflated the balloon with 6 cc of saline. The tube went in without resistance and the patient tolerated well. Afterwards an air bolus was placed through the tube and clearly heard in the stomach. The patient had nice established tract and this was removed and replaced without any resistance. The bumper was slid down and a dressing was placed. Patient tolerated the procedure well. Eddy Newman MD Pager: [facility] [address] [place] [address], [address] [place] [address] Office: HPI Consult Data Date of Consult: 07/10/23 HPI Narrative HPI Narrative: LOC MCDOWELL, is a 73 M who presented from his care home with nonfunctioningG-tube. Patient's G-tube broke at the end. It was placed 2 years ago. [facility] Medical History Anxiety Aphasia Apraxia Convulsions Depression Diabetes Dysphagia Encounter for attention to gastrostomy Heart disease Hemiplegia Hyperlipemia Hypertension PEG (percutaneous endoscopic gastrostomy) adjustment/replacement/removal Peripheral vascular disease Sleep apnea Stroke/cerebrovascular accident Home Medications gemfibrozil 600 mg tablet 600 mg G-tube BIDAC CHOLESTEROL 05/11/17 [History Last Taken 08/26/22] clopidogrel 75 mg tablet 75 mg G-tube DAILY Blood thinner 08/16/17 [History Last Taken 08/26/22] atorvastatin 80 mg tablet 80 mg G-tube QHS Cholesterol 10/07/17 [History Last Taken 08/25/22] ezetimibe 10 mg tablet 10 mg GT QHS CHOLESTEROL 01/14/19 [History Last Taken 08/25/22] cilostazol 100 mg tablet 100 mg GT BID PAD 03/15/20 [History Last Taken 08/26/22] insulin glargine 100 unit/mL (3 mL) subcutaneous pen (Lantus Solostar U-100 Insulin) 25 units subcut QHS DM 03/15/20 [History Last Taken 08/25/22] insulin lispro 100 unit/mL subcutaneous cartridge 15 unit subcut TIDCM DM 03/15/20 [History Last Taken 08/26/22] insulin lispro 100 unit/mL subcutaneous cartridge See Protocol SC TIDCM DM 03/15/20 [History Last Taken 08/26/22] aspirin 81 mg tablet,delayed release 81 mg feeding tube DAILY CAD 04/25/21 [History Last Taken 08/26/22] citalopram 10 mg tablet 5 mg feeding tube DAILY DEPRESSION 04/25/21 [History Last Taken 08/26/22] losartan 50 mg tablet 50 mg feeding tube DAILY HTN 04/25/21 [History Last Taken 08/26/22] aluminum-mag hydroxide-simethicone 200 mg-200 mg-20 mg/5 mL oral susp (Tari-Lanta) 10 ml feeding tube TID PRN BLOATING 10/28/21 [History Last Taken 08/25/22] gabapentin 300 mg capsule 300 mg feeding tube TID NEUROPATHY 08/26/22 [History Last Taken 08/26/22] menthol 0.44 %-zinc oxide 20.6 % topical ointment (Calmoseptine) 1 applic topical BID #0 grams 08/28/22 [Rx Last Taken Unknown] Allergy/AdvReac Type Severity Reaction Status Date / Time No Known Allergies Allergy Verified 07/10/23 15:47 Surgical History Status post abdominal aortic aneurysm repair Social History Smoking Status: Never smoker substance use type: does not use Physical Exam Const alert and oriented x3 HEENT normocephalic Eyes PERRL Lymph Lymphatic: no lymphadenopathy noted Resp normal respiratory effort Cardio Rate: regular rate Rhythm: regular rhythm GI soft to palpation and non-tender 07/10/231909 <Electronically signed by Eddy Newman MD> Cosigner Signature (if applicable): CC: Dr. Marcin Joseph MD~ Signed [facility] Work Phone: Evaluation note Note Date & Type Note Facility Evaluation note Diagnosis Onset Date PEG (percutaneous endoscopic gastrostomy) adjustment/replacement/removal [facility] Work Phone: Evaluation note Note Date & Type Note Facility Evaluation note No assessment information availa [facility] Work Phone: Evaluation note Note Date & Type Note Facility Evaluation note Diagnosis Onset Date Acute respiratory failure with hypoxia acute Influenza B acute UTI (urinary tract infection) [facility] Work Phone: Evaluation note Note Date & Type Note Facility Evaluation note Diagnosis Onset Date Acute respiratory failure with hypoxia acute DARRELL (acute kidney injury) ac shreya Influenza B acute UTI (urinary tract infection) [facility] Work Phone: Evaluation note Note Date & Type Note Facility Evaluation note Diagnosis Onset Date PEG tube malfunction acute [facility] Work Phone: Hospital Discharge instructions Note Date & Type Note Facility Hospital Discharge instructions Additional Instructions CT chest, no fractures noted of shoulder or right sided ribs. Abnormal contours of ribs left side 8 through 10 per radiology. Clinically no tenderness in this area for concerns for fracture. [facility] Work Phone: Reason for referral (narrative) Note Date & Type Note Facility Reason for referral (narrative) No reason for referral information available [facility] Work Phone: Summary Purpose Family History No Family History Records Found Relationship Condition Age at Onset Recorded Date/T wendy Unknown Family History?No pe rtinent history Unknown January 23, 2017 6:57am Family History?No pe rtinent history Unknown October 07, 2017 4:33pm Relationship Condition Age at Onset Recorded Date/T wendy Unknown Family History?No pe rtinent history Unknown January 23, 2017 5:57am Family History?No pe rtinent history Unknown October 07, 2017 3:33pm Advance Directives No Advanced Directives Records Found Advance Directive Response Recorded Date/ Time Advance Directives Yes June 9:36am Living Will Yes October 28, 2021 9:40am Power of Nursing Teacher Yes October 28 9:40am Name of Medical Power of Nursing Teacher mary kate mcdowell October 28, 2021 9:40am Advance Directive Response Recorded Date/ Time Advance Directives Yes June 8:36am Living Will Yes May 07, 6:15am Power of Nursing Teacher No May 07, 2022 6:15am Advance Directive Response Recorded Date/ Time Advance Directives Yes June 8:36am Living Will No May 08, 4:42pm Power of Nursing Teacher No May 08, 2022 4:42pm Advance Directive Response Recorded Date/ Time Advance Directives Yes June 9:36am Living Will Yes February 19 11:03am Power of Nursing Teacher No February 19, 2023 11:03am Advance Directive Response Recorded Date/ Time Name of Medical Power of Nursing Teacher MARY KATE MCDOWELL July 10, 2023 3:48pm Advance Directives Yes June 8:36am Living Will Yes February 19 10:03am Power of Nursing Teacher Yes July 09 3:48pm Advance Directive Response Recorded Date/ Time Advance Directives Yes June 9:36am Chief Complaint and Reason for Visit Chief Complaint pain/other Reason for Visit PEG (percutaneous en doscopic gastrostomy) adjustment/replacement/removal Chief Complaint FEVER Chief Complaint FEVER FLU B WITH HYPOXIA shortness of breath Reason for Visit Acute respiratory fa ilure with hypoxia Influenza B UTI (urinary tract infection) Chief Complaint FEVER FLU B WITH HYPOXIA shortness of breath FLU B WITH HYPOXIA FLU B WITH HYPOXIA FLU B WITH HYPOXIA FLU B WITH HYPOXIA FLU B WITH HYPOXIA FLU B WITH HYPOXIA Reason for Visit Acute respiratory fa ilure with hypoxia DARRELL (acute kidney injury) Influenza B UTI (urinary tract infection) Chief Complaint sob Chief Complaint general illness general illness Reason for Visit PEG tube malfunction Chief Complaint Admit Date wound September 24, 2024 9:51a m Additional Source Comments (unrecognized sect ion and content) No Status Records FoundNo Status Records FoundNo Status Records FoundNo Status Records Found INFORMATION SOURCE (unrecogn ized section and content) DATE CREATED AUTHOR 10/30/2017 [facility] DATE CREATED AUTHOR AUTHOR'S ORGANIZ ATION 10/30/2017 [facility] DATE CREATED AUTHOR AUTHOR'S ORGANIZ ATION 11/28/2019 [facility] DATE CREATED AUTHOR AUTHOR'S ORGANIZ ATION 10/05/2024 [facility] Goals (unrecognized section and content) Goals may be documented in a n alternate sectionGoals may be documented in an alternate sectionGoals may be documented in an alternate sectionGoals may be documented in an alternate sectionGoals may be documented in an alternate sectionGoals may be documented in an alternate section Care Teams (unrecognized sec tion and content) Team Status: Active Member Role Status Dates Dr. Marcin Joseph MD Family Provider Active Dr. Marcin Joseph MD Primary Care Provider Active Team Status: Inactive Member Role Status Dates Dr. Marcin Joseph MD Primary Care Provider Active Dr. Alen Nunez DO Emergency Provider Active Team Status: Active Member Role Status Dates Dr. Marcin Joseph MD Primary Care Provider Active Dr. Alen Nunez DO Emergency Provider Active Dr. Eddy Newman MD Attending Provider Active Team Status: Active Member Role Status Dates Dr. Marcin Joseph MD Primary Care Provider Active Team Status: Inactive Member Role Status Dates Dr. Marcin Joseph MD Primary Care Provider Active Start: September 24, 2024 End: September 24, 2024 Dr. Nahid Ortega DO Emergency Provider Active Start : September 24, 2024 End: September 24, 2024 FOR RECORDS PERTAINING TO PATIENTS WHO ARE OR HAVE BEEN ENROLLED IN A CHEMICAL DEPENDENCY/SUBSTANCEABUSE PROGRAM, SOME INFORMATION MAY BE OMITTED. This clinical summary was aggregated from multiple sources. Caution should be exercised in using it in the provision of clinical care. This summary normalizes information from multiple sources, and as a consequence, information in this document may materially change the coding, format and clinical context of patient data. In addition, data may be omitted in some cases. CLINICAL DECISIONS SHOULD BE BASED ON THE PRIMARY CLINICAL RECORDS. [facility] [employer] [facility]. provides no warranty or guarantee of the accuracy or completeness of information in this document.
[2024-12-23 01:26] VITALS: BP 146/79; PULSE 75; RESP 16; TEMP 36.6; O2SAT 100
--- NOTE | 2024-12-23 02:13 | ED.RN ---
report called to Juan Francisco.
[2024-12-23 04:25] VITALS: BP 155/56; PULSE 78; RESP 16
[2024-12-23 08:00] VITALS: BP 138/65; PULSE 71; RESP 16; O2SAT 95
--- NOTE | 2024-12-23 08:24 | PCA ---
CALLED PHYSICIANS AT 0822 FOR AN ETA UPDATE. THEY SAID IT WILL BE 0930
== END 2024-12-23 10:16 | disposition home or self-care (01) ==
PROVIDERS: Emergency Provider Emergency Medicine; PCP Family Medicine; Visit Provider Emergency Medicine
DX: K94.29 Other complications of gastrostomy (principal); I69.351 Hemiplegia and hemiparesis following cerebral infarction affecting right dominant side; E11.9 Type 2 diabetes mellitus without complications; Z79.4 Long term (current) use of insulin; E78.5 Hyperlipidemia, unspecified; I10 Essential (primary) hypertension; Z79.899 Other long term (current) drug therapy; Z79.02 Long term (current) use of antithrombotics/antiplatelets; Z79.82 Long term (current) use of aspirin; I69.398 Other sequelae of cerebral infarction
CPT/HCPCS: 43762; 74018; 99284

== ENCOUNTER 2025-02-09 00:29 | Emergency (ER) | payer MEDICARE, SELFPAY ==
[2025-02-09 00:32] VITALS: BP 156/82; PULSE 74; RESP 16; TEMP 36.6; O2SAT 96; BMI 41.5
--- NOTE | 2025-02-09 01:08 | EX.ED.DYSGE1 ---
HPI History of Present Illness Chief Complaint: Wound Detail of Chief Complaint: Patient pulled on feeding tube jail setting and to have it evaluate Informant: patient and EMS Onset/Context/Timing Onset: Today Context: Sudden Onset Narrative Narrative: 74-year-old male history of stroke limited speech. From extended-care facility. Has a feeding tube in. Reportedly pulled on it tonight. They sent him in to have it evaluated make sure it was still in place. Patient is an extremely limited informant. [facility] Medical History Aphasia Apraxia Heart disease Hyperlipemia Hemiplegia Convulsions Encounter for attention to gastrostomy PEG (percutaneous endoscopic gastrostomy) adjustment/replacement/removal Dysphagia Hypertension Sleep apnea Anxiety Peripheral vascular disease Depression Diabetes Stroke/cerebrovascular accident Home Medications ?Medication ?Instructions ?Recorded ?Last Taken ?Type gemfibrozil 600 mg tablet 600 mg G-tube BIDAC CHOLESTEROL 05/11/17 08/26/22 History clopidogrel 75 mg tablet 75 mg G-tube DAILY Blood thinner 08/16/17 08/26/22 History atorvastatin 80 mg tablet 80 mg G-tube QHS Cholesterol 10/07/17 08/25/22 History ezetimibe 10 mg tablet 10 mg GT QHS CHOLESTEROL 01/14/19 08/25/22 History cilostazol 100 mg tablet 100 mg G-tube BID PAD 03/15/20 08/26/22 History insulin glargine 100 unit/mL (3 39 unit subcut QHS DM 03/15/20 08/25/22 History mL) subcutaneous pen (Lantus Solostar U-100 Insulin) insulin lispro 100 unit/mL 20 unit subcut TIDCM DM 03/15/20 08/26/22 History subcutaneous cartridge insulin lispro 100 unit/mL See Protocol subcut TIDCM DM 03/15/20 08/26/22 History subcutaneous cartridge aspirin 81 mg tablet,delayed 81 mg feeding tube DAILY CAD 04/25/21 08/26/22 History release citalopram 10 mg tablet 20 mg feeding tube DAILY DEPRESSION 04/25/21 08/26/22 History losartan 50 mg tablet 50 mg feeding tube DAILY HTN 04/25/21 08/26/22 History gabapentin 300 mg capsule 300 mg feeding tube TID NEUROPATHY 08/26/22 08/26/22 History bisacodyl 10 mg rectal suppository 10 mg IA DAILY PRN constipation 09/24/24 Unknown History levetiracetam 500 mg tablet 500 mg PO QHS 09/24/24 Unknown History levetiracetam 750 mg tablet 750 mg PO DAILY 09/24/24 Unknown History acetaminophen 325 mg capsule 650 mg PO Q4H PRN fever or pain 12/23/24 Unknown History acetaminophen 500 mg capsule 1,000 mg PO Q8H 12/23/24 Unknown History dextrose 40 % oral gel (Glucose 10 g PO Q15M PRN hypoglycemia 12/23/24 Unknown History Gel) glucagon HCl 1 mg solution for 1 mg IM Q20M PRN hypoglycemia 12/23/24 Unknown History injection (Glucagon (HCl) Emergency Kit) hydrocortisone 1 % topical cream 1 applic topical BID PRN rash 12/23/24 Unknown History magnesium hydroxide 400 mg/5 mL 30 ml PO DAILY PRN constipation 12/23/24 Unknown History oral suspension (Milk of Magnesia) mineral oil (Fleet Mineral Oil 118 ml IA DAILY PRN constipation 12/23/24 Unknown History enema) Allergy/AdvReac Type Severity Reaction Status Date / Time No Known Allergies Allergy Verified 12/23/24 00:25 Surgical History Status post abdominal aortic aneurysm repair Social History Smoking Status: Never smoker substance use type: does not use ROS ROS ED ROS Narrative Unable to obtain due to the patient stroke and limited speech. Review of Systems ROS Unobtainable: due to mental status EXAM Physical Exam Narrative Exam Narrative: 74-year-old male lying in bed vital signs stable afebrile. No acute distress. No family present. H EENT exam pupils round react to light. Moist mucous members. No trauma to his face. Very very limited speech. Neck nontender. Lungs clear. Heart regular rhythm rate about 70 no murmur. Chest wall ribs nontender. Abdomen soft, nontender, nondistended, normal bowel sounds without peritoneal signs. He has a feeding tube left upper quadrant. There is a small amount of dried blood at the ostomy site. The PEG tube still appears to be in good position. Extremities nontender no deformity. Right hand has a contracture he is unable to raise his right hand or right leg from a prior stroke. Left hand and upper extremity is nontender he can raise the hand. Left leg is nontender no edema he can raise the left leg. Neurologically he is awake. His eyes are open. I cannot understand his speech and his limited speech is a stroke and right hemiparesis. Const Vital Signs: 02/09/25 00:32 Temperature 97.8 F Temperature Source Oral Pulse Rate 74 Respiratory Rate 16 Blood Pressure 156/82 H Blood Pressure Mean 106 Pulse Ox 96 Oxygen Delivery Method Room Air MDM MDM MDM Narrative Medical decision making narrative: 74-year-old male prior stroke unable to communicate pulled on his PEG tube I think is still in good position. Radiologist demonstrated KUB with Gastrografin to see if in good position. Abdomen is benign and nontender there is no peritoneal signs. Repeat exam patient doing well at 1:56 AM. Abdomen is nontender. I will have the nurses call the extended-care facility to make sure they want nothing else evaluated since the patient is a limited informant. History & Record Review Discussion w/independent historian: Patient and Other Additional record(s) reviewed:: Prior inpatient record, Prior outpatient record, Prior ED visit and Prior labs Radiography Diagnostic Testing: KUB single view with Gastrografin shows the feeding tube remains in the stomach. Patient to be discharged back to extended-care facility. Discharge Plan Triage Chief Complaint: Wound ED Provider: Tom Webster Dx/Rx/DC Orders Clinical Impression: Visit for feeding tube placement, Diabetes mellitus type 2 in obese, History of stroke Prescriptions: No Action gemfibrozil 600 MG tablet 600 mg G-tube BIDAC clopidogrel 75 MG tablet 75 mg G-tube DAILY Patient Comments: Blood thinner atorvastatin 80 MG tablet 80 mg G-tube QHS Patient Comments: Cholesterol ezetimibe 10 MG tablet 10 mg GT QHS insulin lispro 100 UNIT/ML cartridge 20 unit SC TIDCM insulin glargine [Lantus Solostar U-100 Insulin] 100 UNITS/ML insulin pen 39 unit SC QHS insulin lispro 100 UNIT/ML cartridge See Protocol subcut TIDCM Protocol: 6. Sliding Scale Insulin Custom Condition: mg/dl range Dose/Route: Number of Units Condition: 151-200 Dose/Route: 2 Condition: 201-250 Dose/Route: 4 Condition: 251-300 Dose/Route: 6 Condition: 301-350 Dose/Route: 8 Condition: 351-400 Dose/Route: 10 Condition: 401-600 Dose/Route: 12 Instruction: CALL MD Protocol Text: Custom Sliding Scale cilostazol 100 MG tablet 100 mg G-tube BID losartan 50 mg tablet 50 mg feeding tube DAILY citalopram 10 mg tablet 20 mg feeding tube DAILY aspirin 81 mg Tablet,Delayed Release (Dr/Ec) 81 mg feeding tube DAILY gabapentin 300 mg capsule 300 mg feeding tube TID bisacodyl 10 mg suppository 10 mg IA DAILY PRN (Reason: constipation) levetiracetam 500 mg tablet 500 mg PO QHS levetiracetam 750 mg tablet 750 mg PO DAILY mineral oil [Fleet Mineral Oil] Enema 118 ml IA DAILY PRN (Reason: constipation) Rx Instructions: discard any unused portion glucagon HCl [Glucagon (HCl) Emergency Kit] 1 mg recon soln 1 mg IM Q20M PRN (Reason: hypoglycemia) Rx Instructions: until target blood sugar attained dextrose [Glucose Gel] 40 % gel 10 g PO Q15M PRN (Reason: hypoglycemia) Rx Instructions: until symptoms of low blood sugar are controlled hydrocortisone 1 % cream 1 applic topical BID PRN (Reason: rash) magnesium hydroxide [Milk of Magnesia] 400 mg/5 mL suspension 30 ml PO DAILY PRN (Reason: constipation) acetaminophen 500 mg capsule 1,000 mg PO Q8H acetaminophen 325 mg capsule 650 mg PO Q4H PRN (Reason: fever or pain) Primary Care Provider: Marcin Joseph Referrals: Marcin Joseph MD [Primary Care Provider, Family Practice] - As Needed Activity Restrictions/Additional Instructions: We evaluated the feeding tube with an x-ray and Gastrografin. The feeding tubes in good position. You may use it. Print Language: Hungarian Disposition Disposition: Home, Self Care
--- NOTE | 2025-02-09 01:46 | RAD_ITS ---
PROCEDURE: ABDOMEN SINGLE VIEW 02/09/2025 REASON FOR EXAM: WITH GASTROGRAFIN FOR FEEDING TUBE PLACEMENT TECHNIQUE: Procedure Code: RADABD Modality: DX Procedure: ABDOMEN SINGLE VIEW COMPARISON: 12/23/2024. FINDINGS: Percutaneous gastrostomy tube is in good position with its tip at the level of the gastric body. Contrast was injected through the tube outlining normal gastric rugae without evidence of contrast leakage. Moderate diffuse spondylosis. Normal visualized lung bases. There is an unremarkable bowel gas pattern. There is no demonstrated free abdominal air. Normal visualized liver. Normal visualized spleen. Normal visualized kidneys. The soft tissue structures of the pelvis are unremarkable. RAD/Abdomen Single View IMPRESSION: Percutaneous gastrostomy tube is in good position with its tip at the level of the gastric body. Contrast was injected through the tube outlining normal gastric rugae without e vidence of contrast leakage. Reading [facility]
[2025-02-09 02:36] VITALS: BP 151/90; PULSE 72; RESP 16; TEMP 36.7; O2SAT 96
== END 2025-02-09 02:51 | disposition skilled nursing facility (03) ==
PROVIDERS: Emergency Provider Emergency Medicine; PCP Family Medicine; Visit Provider Emergency Medicine
DX: Z43.1 Encounter for attention to gastrostomy (principal); I69.351 Hemiplegia and hemiparesis following cerebral infarction affecting right dominant side; Z68.41 Body mass index [BMI] 40.0-44.9, adult; E11.69 Type 2 diabetes mellitus with other specified complication; Z79.4 Long term (current) use of insulin; I69.320 Aphasia following cerebral infarction; I10 Essential (primary) hypertension; E66.9 Obesity, unspecified; Z79.02 Long term (current) use of antithrombotics/antiplatelets; Z79.899 Other long term (current) drug therapy
CPT/HCPCS: 74018; 99284

== ENCOUNTER 2025-03-04 06:51 | Emergency (ER) | payer MEDICARE, SELFPAY ==
[2025-03-04 06:53] VITALS: BP 139/65; PULSE 66; RESP 18; TEMP 36.3; O2SAT 96; BMI 44.9
--- NOTE | 2025-03-04 07:12 | EX.ED.DYSGE1 ---
HPI History of Present Illness Chief Complaint: Other, Pain/Inj Narrative Narrative: 74-year-old male presents with PEG tube malfunction. History and physical is mildly limited secondary to global aphasia. Per RN, patient's PEG tube has migrated. They state that the PEG tube has been hot all the way to the disc. Patient denies any difficulties in using the tube or any pain. It is reported that he usually has more slack in the tubing. [facility] Medical History Aphasia Apraxia Heart disease Hyperlipemia Hemiplegia Convulsions Encounter for attention to gastrostomy PEG (percutaneous endoscopic gastrostomy) adjustment/replacement/removal Dysphagia Hypertension Sleep apnea Anxiety Peripheral vascular disease Depression Diabetes Stroke/cerebrovascular accident Home Medications ?Medication ?Instructions ?Recorded ?Last Taken ?Type gemfibrozil 600 mg tablet 600 mg G-tube BIDAC CHOLESTEROL 05/11/17 08/26/22 History clopidogrel 75 mg tablet 75 mg G-tube DAILY Blood thinner 08/16/17 08/26/22 History atorvastatin 80 mg tablet 80 mg G-tube QHS Cholesterol 10/07/17 08/25/22 History ezetimibe 10 mg tablet 10 mg GT QHS CHOLESTEROL 01/14/19 08/25/22 History cilostazol 100 mg tablet 100 mg G-tube BID PAD 03/15/20 08/26/22 History insulin glargine 100 unit/mL (3 39 unit subcut QHS DM 03/15/20 08/25/22 History mL) subcutaneous pen (Lantus Solostar U-100 Insulin) insulin lispro 100 unit/mL 20 unit subcut TIDCM DM 03/15/20 08/26/22 History subcutaneous cartridge insulin lispro 100 unit/mL See Protocol subcut TIDCM DM 03/15/20 08/26/22 History subcutaneous cartridge aspirin 81 mg tablet,delayed 81 mg feeding tube DAILY CAD 04/25/21 08/26/22 History release citalopram 10 mg tablet 20 mg feeding tube DAILY DEPRESSION 04/25/21 08/26/22 History losartan 50 mg tablet 50 mg feeding tube DAILY HTN 04/25/21 08/26/22 History gabapentin 300 mg capsule 300 mg feeding tube TID NEUROPATHY 08/26/22 08/26/22 History bisacodyl 10 mg rectal suppository 10 mg CA DAILY PRN constipation 09/24/24 Unknown History levetiracetam 500 mg tablet 500 mg PO QHS 09/24/24 Unknown History levetiracetam 750 mg tablet 750 mg PO DAILY 09/24/24 Unknown History acetaminophen 325 mg capsule 650 mg PO Q4H PRN fever or pain 12/23/24 Unknown History acetaminophen 500 mg capsule 1,000 mg PO Q8H 12/23/24 Unknown History dextrose 40 % oral gel (Glucose 10 g PO Q15M PRN hypoglycemia 12/23/24 Unknown History Gel) glucagon HCl 1 mg solution for 1 mg IM Q20M PRN hypoglycemia 12/23/24 Unknown History injection (Glucagon (HCl) Emergency Kit) hydrocortisone 1 % topical cream 1 applic topical BID PRN rash 12/23/24 Unknown History magnesium hydroxide 400 mg/5 mL 30 ml PO DAILY PRN constipation 12/23/24 Unknown History oral suspension (Milk of Magnesia) mineral oil (Fleet Mineral Oil 118 ml CA DAILY PRN constipation 12/23/24 Unknown History enema) Allergy/AdvReac Type Severity Reaction Status Date / Time No Known Allergies Allergy Verified 03/04/25 06:53 Surgical History Status post abdominal aortic aneurysm repair Social History Smoking Status: Never smoker substance use type: does not use ROS ROS ED ROS Narrative Review of systems positive for PEG tube malfunction. No fevers or chills, no nausea or vomiting, no other symptoms. EXAM Physical Exam Narrative Exam Narrative: Afebrile. Vital signs noted. Nontoxic appearing. Cardiovascular semination regular rate and rhythm. Lungs clear to auscultation bilaterally. Abdomen is soft. There is a presence of PEG tube with surrounding orifice. Tube is freely movable through the disc that is supposed to be securing it against the skin. No fluctuance of the skin. Const Vital Signs: 03/04/25 06:53 03/04/25 06:57 03/04/25 08:52 Temperature 97.3 F L Temperature Source Temporal Pulse Rate 66 87 Respiratory Rate 18 16 Respiratory Pattern Normal Blood Pressure 139/65 H 148/66 H Blood Pressure Mean 89 93 Pulse Ox 96 100 Oxygen Delivery Method Room Air Room Air MDM MDM MDM Narrative Medical decision making narrative: I do not feel differential diagnosis is applicable. It appears that the rubber ring that secured to the PEG tube against the skin is not as tight. The PEG tube is freely movable. It will be replaced and Gastrografin KUB obtained to check for placement. Procedure note: 20 mL of water extracted from PEG tube balloon. It was removed without difficulty. It was replaced by myself with a 24 Spanish PEG tube because that was the largest available. 20 mL of normal saline inserted into the balloon. On my independent interpretation of the Gastrografin KUB there is no extravasation of fluid. I reviewed the radiology report which confirms my independent interpretation and proper placement of the PEG tube. At this point in time, I feel he can be discharged to continue his previous medications and routines. Return instructions reviewed. Disposition is discharged in stable condition. History & Record Review Discussion w/independent historian: Patient and Other (senior living facility documents, charge poster) Radiography X-Ray: Read by ED Physician, Read by Radiologist and - (Correct placement of PEG tube) Diagnostic Testing: Clinical Impression(s) from Imaging Studies KUB X-Ray 03/04/25 08:20 IMPRESSION: As above. Reading Location: [id number] Discharge Plan Triage Chief Complaint: Other, Pain/Inj ED Provider: Edwar Laguna Dx/Rx/DC Orders Clinical Impression: PEG tube malfunction, Pain around PEG tube site Instructions: ED Feeding Tube Replacement Prescriptions: No Action gemfibrozil 600 MG tablet 600 mg G-tube BIDAC clopidogrel 75 MG tablet 75 mg G-tube DAILY Patient Comments: Blood thinner atorvastatin 80 MG tablet 80 mg G-tube QHS Patient Comments: Cholesterol ezetimibe 10 MG tablet 10 mg GT QHS insulin lispro 100 UNIT/ML cartridge 20 unit SC TIDCM insulin glargine [Lantus Solostar U-100 Insulin] 100 UNITS/ML insulin pen 39 unit SC QHS insulin lispro 100 UNIT/ML cartridge See Protocol subcut TIDCM Protocol: 6. Sliding Scale Insulin Custom Condition: mg/dl range Dose/Route: Number of Units Condition: 151-200 Dose/Route: 2 Condition: 201-250 Dose/Route: 4 Condition: 251-300 Dose/Route: 6 Condition: 301-350 Dose/Route: 8 Condition: 351-400 Dose/Route: 10 Condition: 401-600 Dose/Route: 12 Instruction: CALL MD Protocol Text: Custom Sliding Scale cilostazol 100 MG tablet 100 mg G-tube BID losartan 50 mg tablet 50 mg feeding tube DAILY citalopram 10 mg tablet 20 mg feeding tube DAILY aspirin 81 mg Tablet,Delayed Release (Dr/Ec) 81 mg feeding tube DAILY gabapentin 300 mg capsule 300 mg feeding tube TID bisacodyl 10 mg suppository 10 mg CA DAILY PRN (Reason: constipation) levetiracetam 500 mg tablet 500 mg PO QHS levetiracetam 750 mg tablet 750 mg PO DAILY mineral oil [Fleet Mineral Oil] Enema 118 ml CA DAILY PRN (Reason: constipation) Rx Instructions: discard any unused portion glucagon HCl [Glucagon (HCl) Emergency Kit] 1 mg recon soln 1 mg IM Q20M PRN (Reason: hypoglycemia) Rx Instructions: until target blood sugar attained dextrose [Glucose Gel] 40 % gel 10 g PO Q15M PRN (Reason: hypoglycemia) Rx Instructions: until symptoms of low blood sugar are controlled hydrocortisone 1 % cream 1 applic topical BID PRN (Reason: rash) magnesium hydroxide [Milk of Magnesia] 400 mg/5 mL suspension 30 ml PO DAILY PRN (Reason: constipation) acetaminophen 500 mg capsule 1,000 mg PO Q8H acetaminophen 325 mg capsule 650 mg PO Q4H PRN (Reason: fever or pain) Primary Care Provider: Marcin Joseph Referrals: Marcin Joseph MD [Primary Care Provider, Family Practice] - As Needed Activity Restrictions/Additional Instructions: Okay to use PEG tube. Continue your previous medications and routines. Print Language: [place] Disposition Disposition: Home, Self Care
--- OUTSIDE RECORDS SUMMARY | 2025-03-04 07:20 | XMS RPT_ITS | CCD ---
Author Organization [facility] CliniSyal Care Team Providers Care Bed And Breakfast Operator Name Role Phone WING KINGSLEY Unavailable Unavailable CHARLENE MUKHERJEE Unavailable Unavailable PRITI BARBASEIN A Unavailable Unavailable Percy Brenner Unavailable Unavailable AL-ALI, FIRAS Unavailable Unavailable WING KINGSLEY B Unavailable Unavailable CHARLENE MUKHERJEE Unavailable Unavailable PRITI BARBASEIN A Unavailable Unavailable Dr. Marcin Joseph Primary [...] Provider Dr. Nahid Ortega DO Emergency Provider [phone] Nahid Ortega DO Attending Provider [phone] Dr. Tarik Noriega DO Emergency Provider Dr. Marcin Joseph MD Primary Care Physician Dr. Tarik Noriega DO Attending Physician Dr. Tarik Noriega DO Emergency Department Physic lore Dr. Tom Webster MD Emergency Department Physici an Tarik Noriega Attending Unavailable Marcin Joseph Primary Care Unavailable Marcin Joseph Primary Care Unavailable Nahid Ortega Attending Unavailable Tom Webster Attending Unavailable Marcin Joseph Primary Care Unavailable Medications Current Medications Medication Drug Class(es) Dates Sig (Normalized) Sig (Original) acetaminophen 500 mg oral capsule (20 sources) Start: 12-23-2024 take 2 capsules by mouth every four hours as needed for pain Start: 12-23-2024 take 2 capsules by m outh every eight hours Start: 10-28-2021 End: 07-10-2023 take 650 mg by mouth every four hours as needed for pain Acetaminophen 650 mg/20.3 mL Suspension Discontinued 650 mg PO Q4H as needed for PAIN/FEVER October 28, 2021 12:00am July 10, 2023 7:31pm Start: 03-15-2020 End: 07-10-2023 Acetaminophen 500 mg Tablet Discontinued 1000 mg feeding tube Q8H 0 0 March 15, 2020 1:00am July 10, 2023 7:31pm PAIN Start: 03-15-2020 End: 07-10-2023 Acetaminophen Discontinued 1 000 MG feeding tube Q8H 0 March 15, 2020 12:00am July 10, 2023 6:31pm [id number] 200 actuat albuterol 0.09 mg/actuat metered dose [...] TIMES A DAY October 27, 2021 11:00pm aspirin 81 mg delayed release oral tablet (20 sources) Platelet Aggregation Inhibitor, Nonsteroidal Anti-inflammatory Drug Start: 04-25-2021 Start: 01-24-2017 End: 08-16-2017 Aspirin 81 MG Tab.Chew Disco ntinued 162 mg GT DAILY@0800 0 January 24, 2017 12:00am August 16, 2017 10:47am Start: 01-24-2017 End: 08-16-2017 Aspirin Discontinued 162 MG GT DAILY@0800 January 23, 2017 11:00pm August 16, 2017 9:47am atorvastatin 80 mg oral tabl et (20 sources) HMG-CoA Reductase Inhibitor Start: 01-24-2017 End: 10-07-2017 Start: 01-24-2017 End: 10-07-2017 Atorvastatin Active 80 MG GT AT BEDTIME October 07, 2017 1:03pm bisacodyl 10 mg rectal suppo sitory (8 sources) Stimulant Laxative Start: 09-24-2024 Start: 10-28-2021 Bisacodyl Acti ve 10 MG RC DAILY October 27, 2021 11:00pm cephalexin 50 mg/ml oral suspension (3 sources) Cephalosporin Antibacterial Start: 05-07-2022 Cephalexin Active 500 MG GT Q12H 140 7 May 07, 2022 12:00am cilostazol 100 mg oral tablet (10 sources) Phosphodiesterase 3 Inhibitor Start: 03-15-2020 citalopram 10 mg oral tablet (10 sources) Serotonin Reuptake Inhibitor Start: 04-25-2021 Start: 04-25-2021 Citalopram Act enoch 5 MG feeding tube DAILY April 25, 2021 12:00am Start: 04-25-2021 Citalopram Act enoch 10 MG feeding tube DAILY April 25, 2021 1:00am clopidogrel 75 mg oral table t (10 sources) P2Y12 Platelet Inhibitor Start: 08-16-2017 ezetimibe 10 mg oral tablet (10 sources) Dietary Cholesterol Absorption Inhibitor Start: 01-14-2019 Start: 01-14-2019 Ezetimibe Acti ve 10 MG GT AT BEDTIME January 13, 2019 11:00pm gabapentin 300 mg oral capsu le (10 sources) Anti-epileptic Agent Start: 08-26-2022 Start: 05-11-2017 Gabapentin (Ne urontin) 250 MG/5 ML solution Active 300 MG GT 3 TIMES DAILY WITH MEALS May 11, 2017 12:00am gemfibrozil 600 mg oral tablet (10 sources) Peroxisome Proliferator Receptor alpha Agonist Start: 05-11-2017 glucagon (rdna) 1 mg injection (1 source) Antihypoglycemic Agent Start: 12-23-2024 Glucagon Hcl (Glucagon (Hcl) Emergency Kit) 1 mg recon soln (1 source) Start: 12-23-2024 Glucagon Hcl (Glucagon (Hcl) Emergency Kit) 1 mg recon soln Active 1 mg IM Q20M as needed for hypoglycemia December 23, 2024 12:00am until target blood sugar attained glucose 0.4 mg/mg oral gel (2 sources) Start: 12-23-2024 glycerin 2 mg/ml / hypromellose 2 mg/ml [...] MG PO Q4H October 27, 2021 11:00pm hydrocortisone 10 mg/ml topical cream (2 sources) Corticosteroid Start: 12-23-2024 3 ml insulin glargine 100 unt/ml pen injector (8 sources) Insulin Analog Start: 03-15-2020 Start: 03-15-2020 Insulin Glargi ne (Lantus Solostar [...] 3 ml insulin lispro 100 unt/ml cartridge (20 sources) Insulin Analog Start: 03-15-2020 Start: 03-15-2020 Start: 03-15-2020 Insulin Lispro Active 15 UNIT SC 3 TIMES DAILY WITH MEALS March 15, 2020 12:00am Start: 03-15-2020 Insulin Lispro Active 0 UNIT SC 3 TIMES DAILY WITH MEALS March 15, 2020 12:00am Start: 03-15-2020 Insulin Lispro Active 12 UNIT SC 3 TIMES DAILY WITH MEALS March 15, 2020 12:00am levETIRAcetam 500 mg oral ta blet (20 sources) Start: 09-24-2024 take 1 tablet by valorie th at bedtime Start: 09-24-2024 take 1 tablet by valorie th once daily Start: 03-15-2020 End: 07-10-2023 Levetiracetam 500 MG tablet Discontinued 500 mg GT DAILY@1600 March 15, 2020 1:00am July 10, 2023 7:29pm SEIZURES Start: 03-15-2020 End: 07-10-2023 Levetiracetam 750 MG tablet Discontinued 750 mg GT TWICE A DAY March 15, 2020 1:00am July 10, 2023 7:29pm SEIZURES levoFLOXacin 25 mg/ml oral solution (1 source) Quinolone Antimicrobial Start: 05-11-2022 take 750 mg by mouth once daily Levofloxacin Active 750 MG PO DAILY 240 May 11, 2022 12:00am loperamide hydrochloride 2 mg oral capsule (5 sources) Opioid Agonist Start: 10-28-2021 take 8 mg by mouth every twenty-four hours Loperamide Active 2 MG PO Q2H October 27, 2021 11:00pm administer after each loose stool until symptoms controlled; do not exceed 8 mg per 24 hrs losartan potassium 50 mg oral tablet (10 sources) Angiotensin 2 Receptor Suleman Start: 04-25-2021 magnesium hydroxide 80 mg/ml oral suspension (7 sources) Start: 12-23-2024 take 1 mL by mouth once daily as needed for constipation Start: 12-23-2024 take 1 mL by mouth o nce daily as needed for constipation Magnesium Hydroxide (Milk Of Magnesia) 400 mg/5 mL suspension Active 30 mL PO DAILY as needed for constipation December 23, 2024 12:00am Start: 10-28-2021 take 1 mL by mouth once daily Magnesium Hydroxide (Milk Of Magnesia) 400 mg/5 mL Suspension Active 30 ML PO DAILY October 27, 2021 11:00pm Start: 10-28-2021 take 1 mL by mouth once daily Magnesium Hydroxide (Milk Of Magnesia) 400 mg/5 mL Suspension Active 30 ML PO DAILY October 27, 2021 11:00pm mineral oil 1000 mg/ml enema (1 source) Start: 12-23-2024 Mineral Oil (Fleet Mineral Oil) enema (1 source) Start: 12-23-2024 Mineral Oil (F leet Mineral Oil) enema Active 118 mL RC DAILY as needed for constipation December 23, 2024 12:00am discard any unused portion sodium phosphate, dibasic 59 .3 mg/ml / sodium phosphate, monobasic 161 mg/ml enema (5 sources) Start: 10-28-2021 Sodium Phospha mark (Enema) 19-7 gram/118 mL Enema Active 118 ML RC DAILY October 27, 2021 11:00pm Completed/Discontinued Medications Medication Drug Class(es) Dates Sig (Normalized) Sig (Original) aluminum hydroxide 40 mg/ml / magnesium hydroxide 40 mg/ml / simethicone 4 mg/ml oral suspension (9 sources) Start: 10-28-2021 End: 12-23-2024 Alum-Mag Hydroxide-Simeth (Tari-Lanta) 200-200-20 mg/5 mL Suspension Discontinued 10 mL feeding tube THREE TIMES A DAY as needed for BLOATING October 28, 2021 12:00am December 23, 2024 12:44am amoxicillin 875 mg / clavulanate 125 mg oral tablet (5 sources) Penicillin-class Antibacterial Start: 08-28-2022 End: 07-10-2023 Amoxicillin-Pot Clavulanate 875-125 mg tablet Discontinued 1 {tbl} PO TWICE A DAY 10 5 0 August 28, 2022 12:00am July 10, 2023 7:31pm Start: 08-28-2022 End: 07-10-2023 take 1 tablet by mouth twice daily Amoxicillin-Pot Clavulanate Discontinued 1 TABLET PO TWICE A DAY 10 5 August 27, 2022 11:00pm July 10, 2023 6:31pm cefdinir 50 mg/ml oral suspension (10 sources) Cephalosporin Antibacterial Start: 03-17-2020 End: 03-24-2020 Cefdinir 250 MG/5 ML suspension for reconstitution Discontinued 250 mg GT Q12H 70 7 0 March 17, 2020 1:00am March 23, 2020 1:00am March 24, 2020 1:03am LORazepam 0.5 mg oral tablet (10 sources) Benzodiazepine Start: 08-16-2017 End: 10-08-2017 Lorazepam 0.5 MG tablet Discontinued 0.5 mg GT WITH BREAKFAST August 16, 2017 12:00am October 08, 2017 2:06pm Anxiety Start: 08-16-2017 End: 10-08-2017 Lorazepam Discontinued 0.5 M G GT WITH BREAKFAST August 15, 2017 11:00pm October 08, 2017 1:06pm menthol 0.0044 mg/mg / zinc oxide 0.206 mg/mg topical ointment (5 sources) Start: 08-28-2022 End: 12-23-2024 Menthol-Zinc Oxide (Calmosep cely) 0.44-20.6 % Ointment Discontinued 1 NMA TOPICAL TWICE A DAY 0 0 August 28, 2022 12:00am December 23, 2024 12:44am Please contact the information source for Protocol details. Start: 08-28-2022 End: 12-23-2024 Menthol-Zinc Oxide (Calmosep cely) 0.44-20.6 % Ointment Discontinued 1 NMA TOPICAL TWICE A DAY 0 0 August 28, 2022 12:00am December 23, 2024 12:44am Please contact the information source for Protocol [...] A DAY 0 August 28, 2022 12:00am Nut.Tx.Gluc.Intol,Lac-Free,S oy (Glucerna 1.5 Juan) 237 ML Liquid (10 sources) Start: 01-24-2017 End: 05-11-2017 Lion.[place].Gluc.Intol,Lac-Free,S oy (Glucerna 1.5 Juan) 237 ML Liquid Discontinued 60 mL GT Continuous 1 January 24, 2017 12:00am May 11, 2017 10:57pm 60 cc/hr per GT continuously Start: 01-24-2017 End: 05-11-2017 Lion.[place].Gluc.Intol,Lac-Free,S oy (Glucerna 1.5 Juan) 237 ML Liquid Discontinued 60 mL GT Continuous January 24, 2017 12:00am May 11, 2017 10:57pm 60 cc/hr per GT continuously Start: 01-24-2017 End: 05-11-2017 PoloGluc.Intol,Lac-Free,S oy (Glucerna 1.5 Juan) 237 ML Liquid Discontinued 60 ML GT Continuous January 23, 2017 11:00pm May 11, 2017 9:57pm 60 cc/hr per GT continuously Start: 01-24-2017 End: 05-11-2017 Lion.Gluc.Intol,Lac-Free,S oy (Glucerna 1.5 Juan) 237 ML Liquid Discontinued 60 ML GT Continuous January 24, 2017 12:00am May 11, 2017 10:57pm 60 cc/hr per GT continuously oseltamivir 75 mg oral capsule (8 sources) Neuraminidase Inhibitor Start: 02-19-2023 End: 07-10-2023 take 1 capsule by mouth twice daily Oseltamivir (Tamiflu) 75 mg capsule Discontinued 75 mg PO TWICE A DAY 10 5 0 February 19, 2023 12:00am July 10, 2023 7:30pm Start: 05-07-2022 Oseltamivir (T amiflu) 6 mg/mL suspension for reconstitution Active 75 MG feeding tube TWICE A DAY May 07, 2022 12:00am END DATE oxyCODONE hydrochloride 5 mg oral tablet (10 sources) Opioid Agonist Start: 03-15-2020 End: 03-17-2020 take 1 tablet by mouth every six hours as needed for pain Oxycodone 5 MG tablet Discontinued 5 mg PO EVERY 6 HOURS NEEDED as needed for pain March 15, 2020 1:00am March 17, 2020 10:48am sulfamethoxazole 800 mg / trimethoprim 160 mg oral tablet (5 sources) Dihydrofolate Reductase Inhibitor Antibacterial, Sulfonamide Antimicrobial Start: 08-26-2022 End: 08-28-2022 Sulfamethoxazole- Trimethoprim (Bactrim Ds) 800-160 mg Tablet Discontinued 1 {tbl} feeding tube Q12H August 26, 2022 12:00am August 28, 2022 4:04pm Problems Active Problems Problem Classification Problem Date Documented Da te Episodic/Chronic Acute and unspecified renal failure (7 sources) Injury of kidney; Translations: [Acute kidney failure, unspecified] Episodic Acute cerebrovascular disease (1 source) Cerebral infarction, unspecified; Translations: [Cerebral infarction, unspecified] Onset: Chronic Bacterial infection; unspecified site (10 sources) Bacteremia caused by Gram-negative bacteria; Translations: [Bacteremia] 05-07-2021 Episodic Complications of surgical procedures or medical care (9 sources) Malfunction of gastrostomy tube; Translations: [Gastrostomy malfunction] Onset: 07-10-2023 Episodic Diabetes mellitus with complications (10 sources) Type 2 diabetes mellitus in obese; Translations: [Type 2 diabetes mellitus with other specified complication] 10-08-2017 Chronic Diabetes mellitus without complication (2 sources) Diabetes mellitus; Translations: [Diabetes mellitus without mention of complication, type II or unspecified type, not stated as uncontrolled] 12-23-2024 Chronic Disorders of lipid metabolism (10 sources) Hyperlipidemia; Translations: [Hyperlipidemia, unspecified] 04-26-2021 Chronic Essential hypertension (10 sources) Hypertensive disorder; Translations: [Essential (primary) hypertension] 04-26-2021 Chronic Fluid and electrolyte disorders (10 sources) Hypernatremia; Translations: [Hyperosmolality and hypernatremia] 10-08-2017 [...] Chronic Occlusion or stenosis of precerebral arteries (11 sources) Occlusion and stenosis of bilateral carotid arteries; Translations: [Left carotid artery occlusion] Onset: 8 10-08-2017 Chronic Other and ill-defined heart disease (10 sources) Left ventricular hypertrophy; Translations: [Cardiomegaly] 10-08-2017 Chronic Other and ill-defined heart disease (10 sources) Diastolic dysfunction; Translations: [Other ill-defined heart diseases] 10-08-2017 Chronic Other circulatory disease (5 sources) Cerebral infarction; Translations: [Personal history of transient ischemic attack (TIA), and cerebral infarction without residual deficits] 10-08-2017 Episodic Other circulatory disease (2 sources) History of cardioembolic stroke; Translations: [Personal history of transient ischemic attack (TIA), and cerebral infarction without residual deficits] 12-23-2024 Episodic Other circulatory disease (1 source) History of cerebrovascular accident; Translations: [Personal history of transient ischemic attack (TIA), and cerebral infarction without residual deficits] 02-09-2025 Episodic Other gastrointestinal disorders (20 sources) Patient encounter status; Translations: [Encounter for attention to gastrostomy] 10-28-2021 Chronic Other gastrointestinal disorders (3 sources) Encounter for attention to gastrostomy; Translations: [Attention to gastrostomy] Onset: Chronic Other gastrointestinal disorders (8 sources) History of placement of gastrostomy tube; Translations: [Gastrostomy status] 10-08-2017 Chronic Comment on above: 01/[address] Duncan Other gastrointestinal disorders (10 sources) Dysphagia; Translations: [Dysphagia, unspecified] 03-15-2020 Episodic Other gastrointestinal disorders (1 source) Patient encounter status; Translations: [Encounter for fitting and adjustment of other gastrointestinal appliance and device] 02-09-2025 Episodic Other lower respiratory disease (5 sources) Hypoxia; Translations: [Hypoxemia] 08-26-2022 Episodic Other nervous system disorders (10 sources) Cerebral edema; Translations: [Cerebral edema] 10-08-2017 Chronic Comment on above: with midline shift Other nervous system disorders (10 sources) Dysphasia; Translations: [Dysphasia] 10-08-2017 Episodic Paralysis (3 sources) Right hemiparesis; Translations: [Hemiplegia, unspecified affecting right dominant side] 09-24-2024 Chronic Residual codes; unclassified (10 sources) Finding related to sleep; Translations: [Sleep apnea, unspecified] 10-08-2017 Chronic Residual codes; unclassified (10 sources) Altered mental status; Translations: [Altered mental status, unspecified] 08-26-2022 Episodic Respiratory failure; insufficiency; arrest (13 sources) Acute respiratory failure with hypoxia; Translations: [Acute respiratory failure] Onset: 8 Episodic Septicemia (except in labor) (15 sources) Sepsis; Translations: [Sepsis, unspecified organism] 05-07-2021 Episodic Superficial injury; contusion (3 sources) Contusion of back; Translations: [Contusion of unspecified back wall of thorax, initial encounter] 09-24-2024 Episodic Unclassified (1 source) Unknown / UNK(Unknown) Onset: 8 Urinary tract infections (20 sources) Urinary tract infectious disease; Translations: [Urinary tract infection, site not specified] Episodic Past or Other Problems Problem Classification Problem Date Documented Da te Episodic/Chronic Other aftercare (1 source) Encounter for change or removal of nonsurgical wound dressing; Translations: [Encounter for change or removal of nonsurgical wound dressing] Onset: 09-28-2024 Episodic Unclassified (1 source) Occlusion and stenosis of bilateral carotid arteries Onset: 06-23-2017 Results Test Name Value Interpretation Reference Range Facility Abdomen Single Viewon 2024 Abdomen Single View [facility] Imaging Services [address] [place] [address] [id number] Abdomen Single View MR#: [id number] Acct: [id number] Name: LOC MCDOWELL Rep #: [id number] : 1950 M 74 From: Aaliyah haas MD PCP: Dr. Marcin Joseph MD Status: DEP ER Study: Abdomen Single View Date of Exam: 02/09/25 Exam# [id number] Ordering Dr: Tom Webster MD PROCEDURE: ABDOMEN SINGLE VIEW 02/09/2025 REASON FOR EXAM: WITH GASTROGRAFIN FOR FEEDING TUBE PLACEMENT TECHNIQUE: Procedure Code: RADABD Modality: DX Procedure: ABDOMEN SINGLE VIEW COMPARISON: 12/23/2024. FINDINGS: Percutaneous gastrostomy tube is in good position with its tip at the level of the gastric body. Contrast was injected through the tube outlining normal gastric rugae without evidence of contrast leakage. Moderate diffuse spondylosis. Normal visualized lung bases. There is an unremarkable bowel gas pattern. There is no demonstrated free abdominal air. Normal visualized liver. Normal visualized spleen. Normal visualized kidneys. The soft tissue structures of the pelvis are unremarkable. RAD/Abdomen Single View IMPRESSION: Percutaneous gastrostomy tube is in good position with its tip at the level of the gastric body. Contrast was injected through the tube outlining normal gastric rugae without evidence of contrast leakage. Reading Location: [place] [address] CC: Dr. Tom Webster MD; Dr. Marcin Joseph MD Special Education Kindergarten Teacher: Signed [facility] Emergency Department Summary on 02-09-2025 Emergency Department Summary [facility] Medical Records Department [address] [place] [address] Emergency Department Summary 02/09/25 MR#: [id number] Acct: [id number] Name: LOC MCDOWELL Rep #: [id number] : 1950 74 From: Tom Webster MD PCP: Dr. Marcin Joseph MD Status:REG ER Location: ED HPI History of Present Illness Chief Complaint: Wound Detail of Chief Complaint: Patient pulled on feeding tube long-term setting and to have it evaluate Informant: patient and EMS Onset/Context/Timing Onset: Today Context: Sudden Onset Narrative Narrative: 74-year-old male history of stroke limited speech. From extended-care facility. Has a feeding tube in. Reportedly pulled on it tonight. They sent him in to have it evaluated make sure it was still in place. Patient is an extremely limited informant. [facility] Medical History Aphasia Apraxia Heart disease Hyperlipemia [...] cartridge insulin lispro 100 unit/mL See Protocol subcut TIDCM DM 03/1508/26/22 History subcutaneous cartridge aspirin 81 mg tablet,delayed 81 mg feeding tube DAILY CAD 04/2508/26/22 History release citalopram 10 mg tablet 20 mg feeding tube DAILY DEPRESSIO N 04/25/21 08/26/22 History losartan 50 mg tablet 50 mg feeding tube DAILY HTN 04/2508/26/22 History gabapentin 300 mg capsule 300 mg feeding tube TID NEUROPATHY 08/26/22 08/26/22 History bisacodyl 10 mg rectal suppository 10 mg NJ DAILY PRN constipation 09/24/24 Unknown History levetiracetam 500 mg tablet 500 mg PO QHS 09/24/24 Unknown His tory levetiracetam 750 mg tablet 750 mg PO DAILY 09/24/24 Unknown H istory acetaminophen 325 mg capsule 650 mg PO Q4H PRN fever or pain Unknown History acetaminophen 500 mg capsule 1,000 mg PO Q8H 12/23/24 Unknown H istory dextrose 40 % oral gel (Glucose 10 g PO Q15M PRN hypoglycemia 12/09 10/02 Unknown History Gel) glucagon HCl 1 mg solution for 1 mg IM Q20M PRN hypoglycemia 12/09 10/02 Unknown History injection (Glucagon (HCl) Emergency Kit) hydrocortisone 1 % topical cream 1 applic topical BID PRN rash 12/09 10/02 Unknown History magnesium hydroxide 400 mg/5 mL 30 ml PO DAILY PRN constipation Unknown History oral suspension (Milk of Magnesia) mineral oil (Fleet Mineral Oil 118 ml NJ DAILY PRN constipation 0 12/23/24 Unknown History enema) Allergy/AdvReac Type Severity Reaction Status Date / Time No Known Allergies Allergy Verified 12/23/24 00:25 Surgical History Status post abdominal aortic aneurysm repair Social History Smoking Status: Never smoker substance use type: does not use ROS ROS ED ROS Narrative Unable to obtain due to the patient stroke and limited speech. Review of Systems ROS Unobtainable: due to mental status EXAM Physical Exam Narrative Exam Narrative: 74-year-old male lying in bed vital signs stable afebrile. No acute distress. No family present. H EENT exam pupils round react to light. Moist mucous members. No trauma to his face. Very very limited speech. Neck nontender. Lungs clear. Heart regular rhythm rate about 70 no murmur. Chest wall ribs nontender. Abdomen soft, nontender, nondistended, normal bowel sounds without peritoneal signs. He has a feeding tube left upper quadrant. There is a small amount of dried blood at the ostomy site. The PEG tube still appears to be in good position. Extremities nontender no deformity. Right hand has a contracture he is unable to raise his right hand or right leg from a prior stroke. Left hand and upper extremity is nontender he can raise the hand. Left leg is nontender no edema he can raise the left (more content not included)... [facility] Abdomen Single View (Portabl e)on 12-23-2024 Abdomen Single View (Portable) [facility] Imaging Services [address] [place], [place] [id number] Abdomen Single View (Portable) MR#: [id number] Acct: [id number] Name: LOC MCDOWELL Rep #: [id number] : 1950 M 74 From: Henry Julian MD PCP: Dr. Marcin Joseph MD Status: REG ER Study: Abdomen Single View (Portable) Date of Exam: 0 12/23/24 Exam# [id number] Ordering Dr: Tarik Noriega DO PROCEDURE: ABDOMEN SINGLE VIEW (PORTABLE) 12/23/2024 REASON FOR EXAM: S/P PEG TUBE PLACEMENT TECHNIQUE: ABDOMEN SINGLE VIEW (PORTABLE) COMPARISON: CT 08/26/2022 FINDINGS: G-tube tip overlies the body of the stomach. After injection, the stomach and duodenal bulb opacify, no evidence for contrast leakage. Nonobstructed bowel-gas pattern. RAD/Abdomen Single View (Portable) IMPRESSION: G-tube tip is in the body of the stomach. Reading Location: [place] [address] CC: Dr. Marcin Joseph MD; Tarik Noriega DO Special Education Kindergarten Teacher: Signed [facility] Emergency Department Summary on 12-23-2024 Emergency Department Summary [facility] Medical Records Department [address] [place] [address] Emergency Department Summary 12/23/24 MR#: [id number] Acct: [id number] Name: LOC MCDOWELL Rep #: [id number] : 1950 74 From: Tarik Noriega DO PCP: Dr. Marcin Joseph MD Status:REG ER Location: ED HPI History of Present Illness Chief Complaint: Other, Pain/Inj Informant: EMS and SNF Narrative Narrative: Patient is a 74-year-old male with past medical history of hypertension hyperlipidemia and previous CVA leaving him with right-sided weakness and aphasia. He has a PEG tube in place secondary to this. correction states that sometime this evening he somehow was able to remove his PEG tube. With concern the opening will stricture shut he was sent to the ER to have the PEG tube replaced. As the patient has aphasia he cannot provide any history [facility] Medical History Aphasia Apraxia Heart disease Hyperlipemia [...] cartridge insulin lispro 100 unit/mL See Protocol subcut TIDCM DM 03/1508/26/22 History subcutaneous cartridge aspirin 81 mg tablet,delayed 81 mg feeding tube DAILY CAD 04/2508/26/22 History release citalopram 10 mg tablet 20 mg feeding tube DAILY DEPRESSIO N 04/25/21 08/26/22 History losartan 50 mg tablet 50 mg feeding tube DAILY HTN 04/2508/26/22 History gabapentin 300 mg capsule 300 mg feeding tube TID NEUROPATHY 08/26/22 08/26/22 History bisacodyl 10 mg rectal suppository 10 mg NJ DAILY PRN constipation 09/24/24 Unknown History levetiracetam 500 mg tablet 500 mg PO QHS 09/24/24 Unknown His tory levetiracetam 750 mg tablet 750 mg PO DAILY 09/24/24 Unknown H istory acetaminophen 325 mg capsule 650 mg PO Q4H PRN fever or pain Unknown History acetaminophen 500 mg capsule 1,000 mg PO Q8H 12/23/24 Unknown H istory dextrose 40 % oral gel (Glucose 10 g PO Q15M PRN hypoglycemia 12/09 10/02 Unknown History Gel) glucagon HCl 1 mg solution for 1 mg IM Q20M PRN hypoglycemia 12/09 10/02 Unknown History injection (Glucagon (HCl) Emergency Kit) hydrocortisone 1 % topical cream 1 applic topical BID PRN rash 12/09 10/02 Unknown History magnesium hydroxide 400 mg/5 mL 30 ml PO DAILY PRN constipation Unknown History oral suspension (Milk of Magnesia) mineral oil (Fleet Mineral Oil 118 ml [place] DAILY PRN constipation 0 12/23/24 Unknown History enema) Allergy/AdvReac Type Severity Reaction Status Date / Time No Known Allergies Allergy Verified 12/23/24 00:25 Surgical History Status post abdominal aortic aneurysm repair Social History Smoking Status: Never smoker substance use type: does not use ROS ROS ED Review of Systems ROS Unobtainable: other Details: Unable to obtain review of systems as patient has previous CVA with global aphasia EXAM Physical Exam Const Vital Signs: 12/23/24 00:25 12/23/24 00:25 12/23/24 01:26 Temperature 98.5 F 97.9 F Temperature Source Oral Pulse Rate 66 75 Respiratory Rate 18 16 Respiratory Pattern Normal Blood Pressure 164/75 H 146/79 H Blood Pressure Mean 104 101 Pulse Ox 100 100 Positive well nourished, well developed and obese General Appearance ED: well developed Nutritional Appearance: obese HEENT HEENT Narrative: Normocephalic atraumatic Eyes PERRL and EOMs intact bilaterally General Eye ED: Negative for scleral icterus Neck supple Resp normal respiratory effort and clear to auscultation bilaterally Cardio regular rate and regular rhythm GI non-tender, non-distended and no masses GI Narrative: Abdomen is obese soft nontender a (more content not included)... Normal [facility] Chest without Contraston Chest without Contrast [facility] Imaging Services [address], [place] [address] Chest without Contrast MR#: [id number] Acct: [id number] Name: LOC MCDOWELL Rep #: [id number] : 1950 M 74 From: Ward Ortega MD PCP: Dr. Marcin Joseph MD Status: REG ER Study: Chest without Contrast Date of Exam: 09/24/24 Exam# [id number] Ordering Dr: Nahid Ortega DO EXAM: CT [...] hiatal hernia. 3. Lung emphysema/COPD. Reading Location: [facility] CC: Dr. Marcin Joseph MD; Dr. 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 Marcin Josehp MD Status:[facility] ER Location: ED HPI History of Present [...] call light for unknown amount of time. [facility] Medical History Aphasia Apraxia Heart disease Hyperlipemia [...] bisacodyl 10 mg rectal suppository 10 mg [place] DAILY PRN constipation 09/24/24 Unknown History levetiracetam [...] Diagnosis c (more content not included)... Normal [facility] Absolute lymphocyte countOrd ered By: Alen Nunez on 02-19-2023 Lymphocytes Auto (Unsp spec) [#/Vol] 1.05 10*3/uL 0.83-4.51 [facility] Basophil percentageOrdered B y: Alen Nunez on 02-19-2023 Basophil percentage 0 SEEN /hpf 0-5 [facility] Basophils/100 WBC (Bld) 0.8 % 0-1 [facility] Bilirubin [Mass/Vol] 0.40 mg/dL 0.20-1.00 [facility] Comment on above: For patients on eltr ombopag therapy, use of Dimension [place] TBIL is not recommended. Chloride [Moles/Vol] 105 mmol/L 98-107 [facility] Eosinophils/100 WBC (Bld) 5.1 % 0-5 [facility] Glucose [Mass/Vol] 262 mg/dL 74-106 [facility] Comment on above: Glucose result great er than or equal to 200 mg/dLsuggests DIABETES MELLITUS per A.D.A. criteria. Lactate [Moles/Vol] 1.5 mmol/L 0.4-2.0 [facility] Neutrophils (Bld) [#/Vol] 3.7 10*3/uL 2.0-7.7 [facility] Neutrophils/100 WBC (Bld) 61.5 % 47-70 [facility] Potassium [Moles/Vol] 3.7 mmol/L 3.5-5.1 [facility] Protein [Mass/Vol] 6.9 g/dL 6.4-8.2 [facility] Sodium [Moles/Vol] 137 mmol/L 136-145 [facility] WBC (Bld) [#/Vol] 6.0 10*3/uL 4.4-11.0 [facility] Bilirubin Test strip Ql (U)O rdered By: Alen Nunez on 02-19-2023 Bilirubin Ql (U) Negative Negative [facility] Blood erythrocytes count (nu mber/volume)Ordered By: Alen Nunez on 02-19-2023 RBC (Bld) [#/Vol] 4.50 10*6/uL 4.6-6.2 [facility] Blood hemoglobin measurement (mass/volume)Ordered By: Alen Nunez on 02-19-2023 Hemoglobin (Bld) [Mass/Vol] 13.6 g/dL 13.0-16.5 [facility] Blood lymphocytes/100 leukoc ytesOrdered By: Alen Nunez on 02-19-2023 Lymphocytes/100 WBC (Bld) 17.4 % 19-41 [facility] Blood monocytes/100 leukocyt esOrdered By: Alen Nunez on 02-19-2023 Monocytes/100 WBC (Bld) 15.0 % 0-10 [facility] Blood platelet mean volumeOr dered By: Alen Nunez on 02-19-2023 Platelet mean volume (Bld) [Entitic vol] 9.0 fL 6.2-12.0 [facility] Determination of erythrocyte mean corpuscular volume (MCV)Ordered By: Alen Nunez on 02-19-2023 MCV (RBC) [Entitic vol] 93.8 fL 80-94 [facility] Hematocrit Auto (Bld) [Volum e fraction]Ordered By: Alen Nunez on 02-19-2023 Hematocrit (Bld) [Volume fraction] 42.2 % 40-54 [facility] INR in Blood by Coagulation assayOrdered By: Alen Nunez on 02-19-2023 INR Coag (Bld) [Relative time] 1.0 {INR} [facility] Influenza virus A and B and SARS-CoV-2 (COVID-19) Ag panel - Upper respiratory specimOrdered By: Alen Nunez on 02-19-2023 SARS-CoV-2 & FLU Antigen (Rapid) Influenzae B [facility] Ketones Test strip Ql (U)Ord ered By: Alen Nunez on 02-19-2023 Ketones Ql (U) Negative Negative [facility] Laboratory - Chemistry and C hemistry - challengeOrdered By: Alen Nunez on 02-19-2023 ALP [Catalytic activity/Vol] 87 U/L 45-117 [facility] ALT [Catalytic activity/Vol] 27 U/L 16-61 [facility] CO2 [Moles/Vol] 27.0 mmol/L 21.0-32.0 [facility] Globulin (S) [Mass/Vol] 3.7 g/dL 2.2-4.2 [facility] Urea nitrogen/Creatinine [Mass ratio] 22.6 mg/mg 10-20 [facility] Laboratory - CoagulationOrde red By: Alen Nunez on 02-19-2023 aPTT Coag (Bld) [Time] 24.8 s 24.1-36.2 [facility] PT Coag (PPP) [Time] 13.2 s 11.7-14.9 [facility] Laboratory - Hematology and Cell countsOrdered By: Alen Nunez on 02-19-2023 Erythrocyte distribution width (RBC) [Entitic vol] 46.9 fL 35.1-43.9 [facility] Erythrocyte distribution width (RBC) [Ratio] 13.6 % 11.6-14.6 [facility] Immature granulocytes/100 WBC (Bld) 0.200 % 0.0-0.9 [facility] Comment on above: IG% - Immature Granu locytes (promyelocytes, myelocytes and metamyelocytes) > 1% indicates that a LEFT SHIFT is Present. MCH (RBC) [Entitic mass] 30.2 pg 27.0-32.0 [facility] Nucleated RBC/100 WBC (Bld) [Ratio] 0 % 0-5 [facility] MCHC Auto (RBC) [Mass/Vol]Or dered By: Alen Nunez on 02-19-2023 MCHC (RBC) [Mass/Vol] 32.2 g/dL 32-36 [facility] Mucus LM Ql (Urine sed)Order ed By: Alen Nunez on 02-19-2023 Mucus Ql (Urine sed) 0 SEEN /hpf [facility] Nitrite Test strip Ql (U)Ord ered By: Alen Nunez on 02-19-2023 Nitrite Ql (U) Negative Negative [facility] No Panel InformationOrdered By: Alen Nunez on 02-19-2023 Estimated Creatinine Clearance Calc 48.54 ml/min [facility] Estimated GFR (MDRD) Amer 66 mL/min >60 [facility] Comment on above: GFR Calc Estimated GFR (MDRD) Non-Af Amer 55 mL/min >60 [facility] Comment on above: Non- GFR Calc Troponin I High Sensitivity 16 pg/mL 3.0-78.0 [facility] Comment on above: Please Note: New Mark t Units and Gender Specific Reference Ranges. For more information see Policy Stat Procedure [place] High Sensitivity Troponin (TNIH) and attachments. Platelets bldOrdered By: Devin Nunez on 02-19-2023 Platelets (Bld) [#/Vol] 180 10*3/uL 150-450 [facility] Protein Test strip Ql (U)Ord ered By: Alen Nunez on 02-19-2023 Protein Ql (U) 15 mg/dl Negative [facility] Serum or plasma albumin jenelle urement (mass/volume)Ordered By: Alen Nunez on 02-19-2023 Albumin [Mass/Vol] 3.2 g/dL 3.2-5.0 [facility] Serum or plasma albumin/glob ulin mass ratioOrdered By: Alen Nunez on 02-19-2023 Albumin/Globulin [Mass ratio] 0.9 {ratio} 0.9-2.4 [facility] Serum or plasma calcium jenelle urement (mass/volume)Ordered By: Alen Nunez on 02-19-2023 Calcium [Mass/Vol] 8.3 mg/dL 8.5-10.1 [facility] Serum or plasma creatinine m easurement (mass/volume)Ordered By: Alen Nunez on 02-19-2023 Creatinine [Mass/Vol] 1.37 mg/dL 0.70-1.30 [facility] Comment on above: The validity of the calculated GFR & GFRAA in patients over 70 years has not been determined. Clinical correlation is essential. Serum or plasma urea nitroge n measurement (mass/volume)Ordered By: Alen Nunez on 02-19-2023 Urea nitrogen [Mass/Vol] 31 mg/dL 7-18 [facility] Squamous epithelial cells de tection in urine sediment by light microscopyOrdered By: Alen Nunez on 02-19-2023 Epithelial cells.squamous LM Ql (Urine sed) 0-5 SEEN /hpf 0-5 [facility] Thin prep Papanicolaou smear with manual screeningOrdered By: Alen Nunez on 02-19-2023 Thin prep Papanicolaou smear with manual screening 13 U/L 15-37 [facility] Thin prep Papanicolaou smear with manual screening 5 5-15 [facility] Urine blood detectionOrdered By: Alen Nunez on 02-19-2023 RBC Ql (U) Negative Negative [facility] RBC Ql (U) 0 SEEN /hpf 0-5 [facility] Urine clarityOrdered By: Devin Nunez on 02-19-2023 Clarity (U) Clear Clear [facility] Urine color determinationOrd ered By: Alen Nunez on 02-19-2023 Color (U) Yellow Yellow [facility] Urine glucose detectionOrder ed By: Alen Nunez on 02-19-2023 Glucose Ql (U) 250 mg/dl Normal [facility] Urine leukocyte esterase det ection by dipstickOrdered By: Alen Nunez on 02-19-2023 Leukocyte esterase Test strip Ql (U) Negative Negative [facility] Urine pHOrdered By: Alen calles on 02-19-2023 pH (U) 5.0 [pH] 5.0 - 8.0 [facility] Urine sediment bacteria coun t by microscopy (number/high power field)Ordered By: Alen Nunez on 02-19-2023 Bacteria LM.HPF (Urine sed) [#/Area] 0 /[HPF] None Seen [facility] Urine specific gravity measu rementOrdered By: Alen Nunez on 02-19-2023 Specific gravity (U) [Rel density] 1.025 1.002-1.03 0 [facility] Urobilinogen Auto test strip Ql (U)Ordered By: Alen Nunez on 02-19-2023 Urobilinogen Ql (U) Normal mg/dl Normal [facility] Absolute lymphocyte counton 05-11-2022 Lymphocytes Auto (Unsp spec) [#/Vol] 1.27 10*3/uL 0.83-4.51 [facility] Work Phone: [phone] Basophil percentageon 2022 Basophils/100 WBC (Bld) 0.1 % 0-1 [facility] Work Phone: [phone] Chloride [Moles/Vol] 110 mmol/L 98-107 [facility] Work Phone: Eosinophils/100 WBC (Bld) 0.1 % 0-5 [facility] Work Phone: [phone] Glucose [Mass/Vol] 288 mg/dL 74-106 [facility] Work Phone: [phone] Comment on above: Glucose result great er than or equal to 200 mg/dLsuggests DIABETES MELLITUS per A.D.A. criteria. Neutrophils (Bld) [#/Vol] 5.3 10*3/uL 2.0-7.7 [facility] Work Phone: Neutrophils/100 WBC (Bld) 72.1 % 47-70 [facility] Work Phone: Potassium [Moles/Vol] 3.9 mmol/L 3.5-5.1 [facility] Work Phone: Sodium [Moles/Vol] 144 mmol/L 136-145 [facility] Work Phone: WBC (Bld) [#/Vol] 7.3 10*3/uL 4.4-11.0 [facility] Work Phone: Blood erythrocytes count (nu mber/volume)on 05-11-2022 RBC (Bld) [#/Vol] 3.83 10*6/uL 4.6-6.2 [facility] Work Phone: [phone] Blood hemoglobin measurement (mass/volume)on 05-11-2022 Hemoglobin (Bld) [Mass/Vol] 11.6 g/dL 13.0-16.5 [facility] Work Phone: Blood lymphocytes/100 leukoc yteson 05-11-2022 Lymphocytes/100 WBC (Bld) 17.4 % 19-41 [facility] Work Phone: Blood monocytes/100 leukocyt eson 05-11-2022 Monocytes/100 WBC (Bld) 9.9 % 0-10 [facility] Work Phone: Blood platelet mean volumeon 05-11-2022 Platelet mean volume (Bld) [Entitic vol] 9.1 fL 6.2-12.0 [facility] Work Phone: [phone] Determination of erythrocyte mean corpuscular volume (MCV)on 05-11-2022 MCV (RBC) [Entitic vol] 95.0 fL 80-94 [facility] Work Phone: [phone] Glucose Glucometer (BldC) [M ass/Vol]on 05-11-2022 Glucose [Mass/Vol] 244 mg/dL 74-106 [facility] Work Phone: Comment on above: MANAGEMENT OF PATIEN T CARE PER NURSING PROTOCOL Hematocrit Auto (Bld) [Volum e fraction]on 05-11-2022 Hematocrit (Bld) [Volume fraction] 36.4 % 40-54 [facility] Work Phone: Laboratory - Chemistry and C hemistry - challengeon 05-11-2022 CO2 [Moles/Vol] 30.0 mmol/L 21.0-32.0 [facility] Work Phone: Urea nitrogen/Creatinine [Mass ratio] 26.8 mg/mg 10-20 [facility] Work Phone: Laboratory - Hematology and Cell countson 05-11-2022 Erythrocyte distribution width (RBC) [Entitic vol] 49.4 fL 35.1-43.9 [facility] Work Phone: Erythrocyte distribution width (RBC) [Ratio] 14.1 % 11.6-14.6 [facility] Work Phone: Immature granulocytes/100 WBC (Bld) 0.400 % 0.0-0.9 [facility] Work Phone: Comment on above: IG% - Immature Granu locytes (promyelocytes, myelocytes and metamyelocytes) > 1% indicates that a LEFT SHIFT is Present. MCH (RBC) [Entitic mass] 30.3 pg 27.0-32.0 [facility] Work Phone: Nucleated RBC/100 WBC (Bld) [Ratio] 0 % 0-5 [facility] Work Phone: MCHC Auto (RBC) [Mass/Vol]on 05-11-2022 MCHC (RBC) [Mass/Vol] 31.9 g/dL 32-36 [facility] Work Phone: No Panel Informationon 05-11 Estimated Creatinine Clearance Calc 48.88 ml/min [facility] Work Phone: Estimated GFR (MDRD) Amer 66 mL/min >60 [facility] Work Phone: Comment on above: GFR Calc Estimated GFR (MDRD) Non-Af Amer 54 mL/min >60 [facility] Work Phone: Comment on above: Non- GFR Calc Platelets bldon 05-11-2022 Platelets (Bld) [#/Vol] 173 10*3/uL 150-450 [facility] Work Phone: Serum or plasma calcium jenelle urement (mass/volume)on 05-11-2022 Calcium [Mass/Vol] 8.1 mg/dL 8.5-10.1 [facility] Work Phone: Serum or plasma creatinine m easurement (mass/volume)on 05-11-2022 Creatinine [Mass/Vol] 1.38 mg/dL 0.70-1.30 [facility] Work Phone: Comment on above: The validity of the calculated GFR & GFRAA in patients over 70 years has not been determined. Clinical correlation is essential. Serum or plasma urea nitroge n measurement (mass/volume)on 05-11-2022 Urea nitrogen [Mass/Vol] 37 mg/dL 7-18 [facility] Work Phone: Thin prep Papanicolaou smear with manual screeningon 05-11-2022 Thin prep Papanicolaou smear with manual screening 4 5-15 [facility] Work Phone: Basophil percentageon 2021 Basophil percentage 1.9 mg/dL 2.5-4.9 [facility] Work Phone: Bilirubin [Mass/Vol] 0.40 mg/dL 0.20-1.00 [facility] Work Phone: Comment on above: For patients on eltr ombopag therapy, use of Dimension [place] TBIL is not recommended. Protein [Mass/Vol] 6.3 g/dL 6.4-8.2 [facility] Work Phone: Laboratory - Chemistry and C hemistry - challengeon 05-10-2022 ALP [Catalytic activity/Vol] 64 U/L 45-117 [facility] Work Phone: ALT [Catalytic activity/Vol] 22 U/L 16-61 [facility] Work Phone: Globulin (S) [Mass/Vol] 3.8 g/dL 2.2-4.2 [facility] Work Phone: Magnesium [Mass/Vol] 3.1 mg/dL 1.6-2.6 [facility] Work Phone: No Panel Informationon 05-10 Thyroid Stimulating Hormone (TSH) 0.26 uIU/mL 0.358-3.74 [facility] Work Phone: Serum or plasma albumin jenelle urement (mass/volume)on 05-10-2022 Albumin [Mass/Vol] 2.5 g/dL 3.2-5.0 [facility] Work Phone: Serum or plasma albumin/glob ulin mass ratioon 05-10-2022 Albumin/Globulin [Mass ratio] 0.7 {ratio} 0.9-2.4 [facility] Work Phone: Thin prep Papanicolaou smear with manual screeningon 05-10-2022 Thin prep Papanicolaou smear with manual screening 22 U/L 15-37 [facility] Work Phone: Vancomycin troughon 05-10-20 22 Vancomycin trough [Mass/Vol] 28.8 ug/mL 5.0-15.0 [facility] Work Phone: Comment on above: VANCOMYCIN STANDARED DRUG THERAPY TROUGH LEVEL: 5.0 - 15.0 mg/L VANCOMYCIN HIGH INTENSITY THERAPY TROUGH LEVEL: 15.0 - 20.0 mg/L High Intensity therapy recommended for serious lifethreatening infections include:- Kchsntivjw-Vevqcnviwixr-Whzgvkvuf (Ventilator/Healtcare Associated)-Sepsis PLEASE CONTACT PHARMACY SERVICES (#[id number]) FOR INTERPRETATIONOF RESULTS. Whole blood hemoglobin A1c/t otal hemoglobin ratio (mass fraction)on 05-10-2022 HbA1c (Bld) [Mass fraction] 8.6 % 3.8-5.6 [facility] Work Phone: Comment on above: Normal < 5.7 % Predi abetic 5.7 - 6.4 % Diabetic >or= 6.5 % Please note range changes. Serum procalcitonin measurem enton 05-09-2022 Procalcitonin [Mass/Vol] 0.76 ng/mL 0.00-0.09 [facility] Work Phone: Comment on above: A [...] Auto (Unsp spec) [#/Vol] 1.25 10*3/uL 0.83-4.51 [facility] Work Phone: Base excesson 05-08-2022 Base excess Calc (BldV) [Moles/Vol] 1 mmol/L -2-2 [facility] Work Phone: Basophil percentageon 2021 Basophil percentage 27.0 mmol/L 22-26 [facility] Work Phone: [phone] Basophils/100 WBC (Bld) 98 % 95-99 [facility] Work Phone: Basophils/100 WBC (Bld) 0.5 % 0-1 [facility] Work Phone: Bilirubin [Mass/Vol] 0.40 mg/dL 0.20-1.00 [facility] Work Phone: Comment on above: For patients on eltr ombopag therapy, use of Dimension [place] TBIL is not recommended. Chloride [Moles/Vol] 102 mmol/L 98-107 [facility] Work Phone: Eosinophils/100 WBC (Bld) 0.0 % 0-5 [facility] Work Phone: Glucose [Mass/Vol] 230 mg/dL 74-106 [facility] Work Phone: Comment on above: Glucose result great er than or equal to 200 mg/dLsuggests DIABETES MELLITUS per A.D.A. criteria. Lactate [Moles/Vol] 1.8 mmol/L 0.4-2.0 [facility] Work Phone: Neutrophils (Bld) [#/Vol] 6.1 10*3/uL 2.0-7.7 [facility] Work Phone: Neutrophils/100 WBC (Bld) 76.2 % 47-70 [facility] Work Phone: Potassium [Moles/Vol] 3.3 mmol/L 3.5-5.1 [facility] Work Phone: Protein [Mass/Vol] 7.0 g/dL 6.4-8.2 [facility] Work Phone: Sodium [Moles/Vol] 136 mmol/L 136-145 [facility] Work Phone: WBC (Bld) [#/Vol] 8.0 10*3/uL 4.4-11.0 [facility] Work Phone: Blood erythrocytes count (nu mber/volume)on 05-08-2022 RBC (Bld) [#/Vol] 4.28 10*6/uL 4.6-6.2 [facility] Work Phone: Blood hemoglobin measurement (mass/volume)on 05-08-2022 Hemoglobin (Bld) [Mass/Vol] 13.3 g/dL 13.0-16.5 [facility] Work Phone: Blood lymphocytes/100 leukoc yteson 05-08-2022 Lymphocytes/100 WBC (Bld) 15.6 % 19-41 [facility] Work Phone: Blood monocytes/100 leukocyt eson 05-08-2022 Monocytes/100 WBC (Bld) 7.3 % 0-10 [facility] Work [phone] Blood platelet mean volumeon 05-08-2022 Platelet mean volume (Bld) [Entitic vol] 9.2 fL 6.2-12.0 [facility] Work Phone: [phone] CO2 (BldA) [Partial pressure ]on 05-08-2022 CO2 (Bld) [Partial pressure] 49.2 mm[Hg] 35-45 [facility] Work Phone: Determination of erythrocyte mean corpuscular volume (MCV)on 05-08-2022 MCV (RBC) [Entitic vol] 94.6 fL 80-94 [facility] Work Phone: Hematocrit Auto (Bld) [Volum e fraction]on 05-08-2022 Hematocrit (Bld) [Volume fraction] 40.5 % 40-54 [facility] Work Phone: INR in Blood by Coagulation assayon 05-08-2022 INR Coag (Bld) [Relative time] 1.1 {INR} [facility] Work Phone: [phone] Laboratory - Chemistry and C hemistry - challengeon 05-08-2022 ALP [Catalytic activity/Vol] 73 U/L 45-117 [facility] Work Phone: ALT [Catalytic activity/Vol] 29 U/L 16-61 [facility] Work Phone: [phone] CO2 [Moles/Vol] 28.0 mmol/L 21.0-32.0 [facility] Work Phone: [phone] Globulin (S) [Mass/Vol] 3.9 g/dL 2.2-4.2 [facility] Work [phone] Natriuretic peptide B (Bld) [Mass/Vol] 55.0 pg/mL 0-100 [facility] Work Phone: [phone] Urea nitrogen/Creatinine [Mass ratio] 15.1 mg/mg 10-20 [facility] Work Phone: Laboratory - Coagulationon 1 PT Coag (PPP) [Time] 13.9 s 11.7-14.9 [facility] Work Phone: Laboratory - Hematology and Cell countson 05-08-2022 Erythrocyte distribution width (RBC) [Entitic vol] 50.4 fL 35.1-43.9 [facility] Work Phone: Erythrocyte distribution width (RBC) [Ratio] 14.5 % 11.6-14.6 [facility] Work Phone: [phone] Immature granulocytes/100 WBC (Bld) 0.400 % 0.0-0.9 [facility] Work Phone: Comment on above: IG% - Immature Granu locytes (promyelocytes, myelocytes and metamyelocytes) > 1% indicates that a LEFT SHIFT is Present. MCH (RBC) [Entitic mass] 31.1 pg 27.0-32.0 [facility] Work Phone: Nucleated RBC/100 WBC (Bld) [Ratio] 0 % 0-5 [facility] Work Phone: MCHC Auto (RBC) [Mass/Vol]on 05-08-2022 MCHC (RBC) [Mass/Vol] 32.8 g/dL 32-36 [facility] Work Phone: No Panel Informationon 05-08 Blood Gas Oxygen Percent 100 [facility] Work Phone: Blood Gas Sample Site L Brach [facility] Work Phone: Blood Gas Specimen Type ART [facility] Work Phone: Blood Gas Total CO2 29 mmol/L [facility] Work Phone: Oxygen Delivery Device NRB [facility] Work Phone: Estimated Creatinine Clearance Calc 39.22 ml/min [facility] Work Phone: Estimated GFR (MDRD) Amer 51 mL/min >60 [facility] Work Phone: Comment on above: GFR Calc Estimated GFR (MDRD) Non-Af Amer 42 mL/min >60 [facility] Work Phone: Comment on above: Non- GFR Calc Oxygen (BldA) [Partial press ure]on 05-08-2022 Oxygen (Bld) [Partial pressure] 108 mmHG 75-100 [facility] Work Phone: Platelets bldon 05-08-2022 Platelets (Bld) [#/Vol] 190 10*3/uL 150-450 [facility] Work Phone: Serum or plasma albumin jenelle urement (mass/volume)on 05-08-2022 Albumin [Mass/Vol] 3.1 g/dL 3.2-5.0 [facility] Work Phone: Serum or plasma albumin/glob ulin mass ratioon 05-08-2022 Albumin/Globulin [Mass ratio] 0.8 {ratio} 0.9-2.4 [facility] Work Phone: Serum or plasma calcium jenelle urement (mass/volume)on 05-08-2022 Calcium [Mass/Vol] 8.0 mg/dL 8.5-10.1 [facility] Work Phone: Serum or plasma creatinine m easurement (mass/volume)on 05-08-2022 Creatinine [Mass/Vol] 1.72 mg/dL 0.70-1.30 [facility] Work Phone: Comment on above: The validity of the calculated GFR & GFRAA in patients over 70 years has not been determined. Clinical correlation is essential. Serum or plasma urea nitroge n measurement (mass/volume)on 05-08-2022 Urea nitrogen [Mass/Vol] 26 mg/dL 7-18 [facility] Work Phone: Thin prep Papanicolaou smear with manual screeningon 05-08-2022 Thin prep Papanicolaou smear with manual screening 33 U/L 15-37 [facility] Work Phone: Thin prep Papanicolaou smear with manual screening 6 5-15 [facility] Work Phone: [phone] pH measurementon 05-08-2022 pH (Unsp spec) 7.35 [pH] 7.35-7.45 [facility] Work Phone: Absolute lymphocyte counton 05-07-2022 Lymphocytes Auto (Unsp spec) [#/Vol] 0.39 10*3/uL 0.83-4.51 [facility] Work Phone: Basophil percentageon 2021 Basophil percentage 10-25 SEEN /hpf 0-5 [facility] Work Phone: Basophils/100 WBC (Bld) 0.6 % 0-1 [facility] Work Phone: [phone] Bilirubin [Mass/Vol] 0.50 mg/dL 0.20-1.00 [facility] Work Phone: [phone] Comment on above: For patients on eltr ombopag therapy, use of Dimension [place] TBIL is not recommended. Chloride [Moles/Vol] 104 mmol/L 98-107 [facility] Work Phone: Eosinophils/100 WBC (Bld) 0.7 % 0-5 [facility] Work Phone: [phone] Glucose [Mass/Vol] 208 mg/dL 74-106 [facility] Work Phone: [phone] Comment on above: Glucose result great er than or equal to 200 mg/dLsuggests DIABETES MELLITUS per A.D.A. criteria. Lactate [Moles/Vol] 1.7 mmol/L 0.4-2.0 [facility] Work Phone: [phone] Neutrophils (Bld) [#/Vol] 7.4 10*3/uL 2.0-7.7 [facility] Work Phone: Neutrophils/100 WBC (Bld) 83.5 % 47-70 [facility] Work Phone: [phone] Potassium [Moles/Vol] 4.2 mmol/L 3.5-5.1 [facility] Work Phone: [phone] Protein [Mass/Vol] 6.9 g/dL 6.4-8.2 [facility] Work Phone: [phone] Sodium [Moles/Vol] 139 mmol/L 136-145 [facility] Work Phone: WBC (Bld) [#/Vol] 8.9 10*3/uL 4.4-11.0 [facility] Work Phone: [phone] Bilirubin Test strip Ql (U)o n 05-07-2022 Bilirubin Ql (U) Negative Negative [facility] Work Phone: [phone] Blood erythrocytes count (nu mber/volume)on 05-07-2022 RBC (Bld) [#/Vol] 4.36 10*6/uL 4.6-6.2 [facility] Work Phone: [phone] Blood hemoglobin measurement (mass/volume)on 05-07-2022 Hemoglobin (Bld) [Mass/Vol] 13.5 g/dL 13.0-16.5 [facility] Work Phone: Blood lymphocytes/100 leukoc yteson 05-07-2022 Lymphocytes/100 WBC (Bld) 4.4 % 19-41 [facility] Work Phone: Blood monocytes/100 leukocyt eson 05-07-2022 Monocytes/100 WBC (Bld) 10.3 % 0-10 [facility] Work Phone: Blood platelet mean volumeon 05-07-2022 Platelet mean volume (Bld) [Entitic vol] 9.2 fL 6.2-12.0 [facility] Work Phone: [phone] Determination of erythrocyte mean corpuscular volume (MCV)on 05-07-2022 MCV (RBC) [Entitic vol] 92.9 fL 80-94 [facility] Work Phone: [phone] Direct bilirubinon Bilirubin.direct [Mass/Vol] 0.15 mg/dL 0.00-0.30 [facility] Work Phone: [phone] Hematocrit Auto (Bld) [Volum e fraction]on 05-07-2022 Hematocrit (Bld) [Volume fraction] 40.5 % 40-54 [facility] Work Phone: Ketones Test strip Ql (U)on 05-07-2022 Ketones Ql (U) Negative Negative [facility] Work Phone: Laboratory - Chemistry and C hemistry - challengeon 05-07-2022 ALP [Catalytic activity/Vol] 92 U/L 45-117 [facility] Work Phone: [phone] ALT [Catalytic activity/Vol] 30 U/L 16-61 [facility] Work Phone: [phone] CO2 [Moles/Vol] 28.0 mmol/L 21.0-32.0 [facility] Work Phone: [phone] Globulin (S) [Mass/Vol] 3.5 g/dL 2.2-4.2 [facility] Work Phone: [phone] Urea nitrogen/Creatinine [Mass ratio] 18.1 mg/mg 10-20 [facility] Work Phone: [phone] Laboratory - Hematology and Cell countson 05-07-2022 Erythrocyte distribution width (RBC) [Entitic vol] 47.5 fL 35.1-43.9 [facility] Work Phone: [phone] Erythrocyte distribution width (RBC) [Ratio] 13.9 % 11.6-14.6 [facility] Work Phone: [phone] Immature granulocytes/100 WBC (Bld) 0.500 % 0.0-0.9 [facility] Work Phone: Comment on above: IG% - Immature Granu locytes (promyelocytes, myelocytes and metamyelocytes) > 1% indicates that a LEFT SHIFT is Present. MCH (RBC) [Entitic mass] 31.0 pg 27.0-32.0 [facility] Work Phone: [phone] Nucleated RBC/100 WBC (Bld) [Ratio] 0 % 0-5 [facility] Work Phone: [phone] MCHC Auto (RBC) [Mass/Vol]on 05-07-2022 MCHC (RBC) [Mass/Vol] 33.3 g/dL 32-36 [facility] Work Phone: Mucus LM Ql (Urine sed)on Mucus Ql (Urine sed) 0 SEEN /hpf [facility] Work Phone: Nitrite Test strip Ql (U)on 05-07-2022 Nitrite Ql (U) Positive Negative [facility] Work Phone: No Panel Informationon 05-07 Estimated Creatinine Clearance Calc 64.24 ml/min [facility] Work Phone: Estimated GFR (MDRD) Amer 90 mL/min >60 [facility] Work Phone: Comment on above: GFR Calc Estimated GFR (MDRD) Non-Af Amer 74 mL/min >60 [facility] Work Phone: Comment on above: Non- GFR Calc Platelets bldon 05-07-2022 Platelets (Bld) [#/Vol] 215 10*3/uL 150-450 [facility] Work Phone: Protein Test strip Ql (U)on 05-07-2022 Protein Ql (U) 30 mg/dl Negative [facility] Work Phone: Serum or plasma albumin jenelle urement (mass/volume)on 05-07-2022 Albumin [Mass/Vol] 3.4 g/dL 3.2-5.0 [facility] Work Phone: Serum or plasma calcium jenelle urement (mass/volume)on 05-07-2022 Calcium [Mass/Vol] 8.5 mg/dL 8.5-10.1 [facility] Work Phone: Serum or plasma creatinine m easurement (mass/volume)on 05-07-2022 Creatinine [Mass/Vol] 1.05 mg/dL 0.70-1.30 [facility] Work Phone: Comment on above: The validity of the calculated GFR & GFRAA in patients over 70 years has not been determined. Clinical correlation is essential. Serum or plasma urea nitroge n measurement (mass/volume)on 05-07-2022 Urea nitrogen [Mass/Vol] 19 mg/dL 7-18 [facility] Work Phone: [phone] Squamous epithelial cells de tection in urine sediment by light microscopyon 05-07-2022 Epithelial cells.squamous LM Ql (Urine sed) 0-5 SEEN /hpf 0-5 [facility] Work Phone: [phone] Thin prep Papanicolaou smear with manual screeningon 05-07-2022 Thin prep Papanicolaou smear with manual screening 22 U/L 15-37 [facility] Work Phone: Thin prep Papanicolaou smear with manual screening 7 5-15 [facility] Work Phone: [phone] Urine blood detectionon 04-11 RBC Ql (U) Negative Negative [facility] Work Phone: [phone] RBC Ql (U) 0 SEEN /hpf 0-5 [facility] Work Phone: Urine clarityon 05-07-2022 Clarity (U) Sl. Cloudy Clear [facility] Work Phone: [phone] Urine color determinationon 05-07-2022 Color (U) Yellow Yellow [facility] Work Phone: [phone] Urine glucose detectionon Glucose Ql (U) Normal mg/dl Normal [facility] Work Phone: [phone] Urine leukocyte esterase det ection by dipstickon 05-07-2022 Leukocyte esterase Test strip Ql (U) 100 /ul Negative [facility] Work Phone: [phone] Urine pHon 05-07-2022 pH (U) 6.5 [pH] 5.0 - 8.0 [facility] Work Phone: [phone] Urine sediment bacteria coun t by microscopy (number/high power field)on 05-07-2022 Bacteria LM.HPF (Urine sed) [#/Area] 2 /[HPF] None Seen [facility] Work Phone: [phone] Urine specific gravity measu rementon 05-07-2022 Specific gravity (U) [Rel density] 1.015 1.002-1.03 0 [facility] Work Phone: Urobilinogen Auto test strip Ql (U)on 05-07-2022 Urobilinogen Ql (U) Normal mg/dl Normal [facility] Work Phone: Absolute lymphocyte counton 10-28-2021 Lymphocytes Auto (Unsp spec) [#/Vol] 2.06 10*3/uL 0.83-4.51 [facility] Work Phone: Basophil percentageon 2021 Basophils/100 WBC (Bld) 0.9 % 0-1 [facility] Work Phone: Chloride [Moles/Vol] 108 mmol/L 98-107 [facility] Work Phone: Eosinophils/100 WBC (Bld) 2.8 % 0-5 [facility] Work Phone: Glucose [Mass/Vol] 209 mg/dL 74-106 [facility] Work Phone: Comment on above: Glucose result great er than or equal to 200 mg/dLsuggests DIABETES MELLITUS per A.D.A. criteria. Neutrophils (Bld) [#/Vol] 5.2 10*3/uL 2.0-7.7 [facility] Work Phone: Neutrophils/100 WBC (Bld) 60.9 % 47-70 [facility] Work Phone: Potassium [Moles/Vol] 4.4 mmol/L 3.5-5.1 [facility] Work Phone: Sodium [Moles/Vol] 140 mmol/L 136-145 [facility] Work Phone: WBC (Bld) [#/Vol] 8.6 10*3/uL 4.4-11.0 [facility] Work Phone: Blood erythrocytes count (nu mber/volume)on 10-28-2021 RBC (Bld) [#/Vol] 4.65 10*6/uL 4.6-6.2 [facility] Work Phone: Blood hemoglobin measurement (mass/volume)on 10-28-2021 Hemoglobin (Bld) [Mass/Vol] 14.4 g/dL 13.0-16.5 [facility] Work Phone: Blood lymphocytes/100 leukoc yteson 10-28-2021 Lymphocytes/100 WBC (Bld) 23.9 % 19-41 [facility] Work Phone: Blood monocytes/100 leukocyt eson 10-28-2021 Monocytes/100 WBC (Bld) 11.4 % 0-10 [facility] Work Phone: Blood platelet mean volumeon 10-28-2021 Platelet mean volume (Bld) [Entitic vol] 9.4 fL 6.2-12.0 [facility] Work Phone: [phone] Determination of erythrocyte mean corpuscular volume (MCV)on 10-28-2021 MCV (RBC) [Entitic vol] 92.0 fL 80-94 [facility] Work Phone: [phone] Hematocrit Auto (Bld) [Volum e fraction]on 10-28-2021 Hematocrit (Bld) [Volume fraction] 42.8 % 40-54 [facility] Work Phone: Laboratory - Chemistry and C hemistry - challengeon 10-28-2021 CO2 [Moles/Vol] 31.0 mmol/L 21.0-32.0 [facility] Work Phone: [phone] Urea nitrogen/Creatinine [Mass ratio] 16.8 mg/mg - [facility] Work Phone: Laboratory - Hematology and Cell countson 10-28-2021 Erythrocyte distribution width (RBC) [Entitic vol] 43.3 fL 35.1-43.9 [facility] Work Phone: [phone] Erythrocyte distribution width (RBC) [Ratio] 12.9 % 11.6-14.6 [facility] Work Phone: [phone] Immature granulocytes/100 WBC (Bld) 0.100 % 0.0-0.9 [facility] Work Phone: Comment on above: IG% - Immature Granu locytes (promyelocytes, myelocytes and metamyelocytes) > 1% indicates that a LEFT SHIFT is Present. MCH (RBC) [Entitic mass] 31.0 pg 27.0-32.0 [facility] Work Phone: Nucleated RBC/100 WBC (Bld) [Ratio] 0 % 0-5 [facility] Work Phone: MCHC Auto (RBC) [Mass/Vol]on 10-28-2021 MCHC (RBC) [Mass/Vol] 33.6 g/dL 32-36 [facility] Work Phone: No Panel Informationon 10-28 Estimated Creatinine Clearance Calc 81.27 ml/min [facility] Work Phone: Estimated GFR (MDRD) Amer 118 mL/min >60 [facility] Work Phone: Comment on above: GFR Calc Estimated GFR (MDRD) Non-Af Amer 97 mL/min >60 [facility] Work Phone: Comment on above: Non- GFR Calc Platelets bldon 10-28-2021 Platelets (Bld) [#/Vol] 222 10*3/uL 150-450 [facility] Work Phone: Serum or plasma calcium jenelle urement (mass/volume)on 10-28-2021 Calcium [Mass/Vol] 8.7 mg/dL 8.5-10.1 [facility] Work Phone: Serum or plasma creatinine m easurement (mass/volume)on 10-28-2021 Creatinine [Mass/Vol] 0.83 mg/dL 0.70-1.30 [facility] Work Phone: Comment on above: The validity of the calculated GFR & GFRAA in patients over 70 years has not been determined. Clinical correlation is essential. Serum or plasma urea nitroge n measurement (mass/volume)on 10-28-2021 Urea nitrogen [Mass/Vol] 14 mg/dL 7-18 [facility] Work Phone: Thin prep Papanicolaou smear with manual screeningon 10-28-2021 Thin prep Papanicolaou smear with manual screening 1 5-15 [facility] Work Phone: COVID PCR, SCREENING CONGREG ATEon 11-02-2019 CORONAVIRUS 2019,PCR NOT DETECTED Normal Not Detected [facility] Comment on above: Result Comment: This assay [...] patient management decisions. Fact sheet for providers: https://www.fda.gov/media/903543/download Fact sheet for patients: https://www.fda.gov/media/556016/download This test has received FDA Emergency Use Authorization (EUA) and has been verified by [facility] ([facility]). This test is only authorized for the duration of time that circumstances exist to justify the authorization of the emergency use of in vitro diagnostic tests for the detection of SARS-CoV-2 virus and/or diagnosis of COVID-19 infection under section 564(b)(1) of the Act, 21 U.S.C. 360bbb-3(b)(1), unless the authorization is terminated or revoked sooner. [facility] ([facility]) is certified under CLIA-88 as qualified to perform high complexity testing. This tests analytical performance characteristics have been determined by [facility]. Testing is performed at [facility] is located at [address] [place] [address] (CLIA License #[id number], CAP #[id number]). Performed By: #### C VCLA #### [facility] [address] [place] [address] COVID PCR, SCREENING CONGREG ATEon 11-01-2019 Lab Specimen Source Nasal, Nasopharyngeal Normal [facility] Comment on above: Performed By: #### C VCLA #### [facility] [address] [place] [address] ALLIED HEALTHon 06-30-2017 ALLIED HEALTH HNO ID: [id number] thor: Marina (Rn) Isabel RNService: Home Care ServicesAuthor Type: Registered NurseType: Allied HealthFiled: 06/30/2017 3:57 PMNote Text:NURSE AIDE EVALUATOR NOTESERVICE DATE: 06/30/2017SERVICE TIME: 3:56 PMDischarge:Aware of Discharge home todayPhysician order placed for [place] Care [place] [facility]: [facility] (hospice)Start of care date: TBDPatient/Family agree to discharge plan: YesPatient to have Palliative services at [place], per family choice.SIGNATURE: Marina Hall RN PATIENT NAME: Loc McdowellDATE: June 30, 2017 : 3:56 PM Normal [facility] Basic Panelon 06-30-2017 Creatinine 0.56 mg/dL Low 0.67-1.17 [facility] Comment on above: Performed By: #### M AG ####[place] [address] Anion gap 9 mmol/L Normal 8-16 [facility] Comment on above: Performed By: #### M AG ####[place] [address] Calcium 8.7 mg/dL Normal 8.5-10.1 [facility] Comment on above: Performed By: #### M AG ####[place] [address] CO2 30 mmol/L Normal 21-32 [facility] Comment on above: Performed By: #### M AG ####[place] [address] Glucose mass conc 159 mg/dL High 70-99 [facility] Comment on above: Performed By: #### M AG ####[place] [address] Urea nitrogen 14 mg/dL Normal 7-18 [facility] Comment on above: Performed By: #### M AG ####[address], [place] [address] Chloride 100 mmol/L Normal 98-107 [facility] Comment on above: Performed By: #### M AG ####[facility] [place] [address] Potassium molar conc 4.0 mmol/L Normal 3.5-5.1 [facility] Comment on above: Performed By: #### M AG ####[facility] [place] [address] Sodium 135 mmol/L Low 136-145 [facility] Comment on above: Performed By: #### M AG ####[place] [address] CASE MANAGEMon 06-30-2017 CASE MANAGEM HNO ID: [id number] thor: Josephine DiazRn) GARCIA Evanservice: Care ManagementAuthor Type: Registered NurseType: Care Mgt Progress NoteFiled: 06/30/2017 10:26 AMNote Text:CARE MANAGEMENT PROGRESS NOTESERVICE DATE: 06/30/2017SERVICE TIME: 1025 LOS: 7 [facility]Pt [facility] up for 1230. Pt'funmi Cassidy called and made aware. RN aware.SIGNATURE: Josephine Evans RN PATIENT NAME: Loc GraysonerDATE: June 30, 2017 : 10:25 AM PAGER/CONTACT #: [phone] Normal [facility] CNDSon 06-30-2017 CNDS HNO ID: [id number] thor: Charlene Montoyaervice: Hospital MedicineAuthor Type: PhysicianType: Discharge SummariesFiled: 06/30/2017 11:05 AMNote Text:DISCHARGE SUMMARYPATIENT NAME: Loc GraysonerMRN: [id number] Information Admission Information ADMIT DATE: 06/23/2017DISCHARGE DATE: 06/30/2017MY DOCTORS AND MEDICAL TEAM:[facility] Doctor: Charlene Bishop Care Provider: Kwaku Romero Medical Team Members: Treatment Team:Attending Provider: Charlene MukherjeeConsulting: Anastasia Al-AliAttending: Ak Sound [place]MY CONDITION AT DISCHARGE: StableREASON [...] TIME:No pending results Discharge Disposition Discharge Disposition: [facility]dc Facility - Less than 30 DaysActivity When You Leave the Hospital Limited to: Per PT/OTDiet Instructions Other: NPO, Tube feeds through PEGFollow Up Appointments Follow-Up Appointment When: In 1 weekJakobjohn Abby [phone] [facility] [id number] Requested ReferralAdditional Provider to Provider Information:1. 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 ?Continue ASA/Plavix/statin.??2. ?UTI - completed abx Rx??3. ?Dysphagia - PEG feeding??4. 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 ?HTN/HPL - currently good BP off meds??6. ?PAD - see #1.FOLLOW-UP APPOINTMENTS ALREADY SCHEDULED WITH A [facility] PROVIDER:No future appointments.DISCHARGE MEDICATION: Current Discharge Medication [...] #:DATE: June 30, 2017TIME: 11:04 AM Normal [facility] Glucose Meteron 06-30-2017 Glucose mass conc 160 mg/dL High 70-99 [facility] Comment on above: Result Comment: EVITA Haas OTIFIED Performed By: #### P HOS ####[place] [address] Glucose mass conc 165 mg/dL High 70-99 [facility] Comment on above: Result Comment: EVITA Haas OTIFIED Performed By: #### P HOS ####[place] [address] Glucose mass conc 148 mg/dL High 70-99 [facility] Comment on above: Performed By: #### M AG ####[place] [address] Hemogramon 06-30-2017 Erythrocyte distribution width Auto Ratio (RBC) 13.3 % Normal 11.6-14.4 [facility] Comment on above: Performed By: #### M AG ####[place] [address] Erythrocytes (RBC) 3.98 mil/cmm Low 4.63-6.08 [facility] Comment on above: Performed By: #### M AG ####[place] [address] Hematocrit (HCT) 36.9 % Low 40.1-51.0 [facility] Comment on above: Performed By: #### M AG ####[place] [address] Hemoglobin mass conc (Bld) 12.3 g/dL Low 13.7-17.5 [facility] Comment on above: Performed By: #### M AG ####[facility] [place] [address] MCH 30.9 pg Normal 25.7-32.2 [facility] Comment on above: Performed By: #### M AG ####[place] [address] MCHC mass conc (RBC) 33.3 % Normal 32.3-36.5 [facility] Comment on above: Performed By: #### M AG ####[place] [address] MCV 92.7 fL Normal 83.2-95.6 [facility] Comment on above: Performed By: #### M AG ####[place] [address] Platelet mean volume (PMV) 10.0 fL Normal 8.7-12.0 [facility] Comment on above: Performed By: #### M AG ####[place] [address] Platelets 296 thou/cmm Normal 141-365 [facility] Comment on above: Performed By: #### M AG ####[place] [address] RDW SD 45.4 fl Normal 36.1-45.8 [facility] Comment on above: Performed By: #### M AG ####[place] [address] WBC (Leukocytes) 11.85 thou/cmm High 4.23-9.07 [facility] Comment on above: Performed By: #### M AG ####[place] [address] MDRD GFRon 06-30-2017 eGFR (non-black) mL/min/{1.73_m2} Normal >60mL/m in/ 1.73m2 [facility] Comment on above: Result Comment: If t he patient is , multiply the result by 1.210. Performed By: #### P HOS ####[facility] [place], [place] [address] Magnesium Bloodon 06-30-2017 Magnesium 2.2 mg/dL Normal 1.6-2.6 [facility] Comment on above: Performed By: #### P HOS ####[address] [address] NURSING PROGon 06-30-2017 NURSING PROG HNO ID: [id number] thor: Jess (Rn) Amado, RNService: (none)Author Type: Registered NurseType: Nursing Progress NoteFiled: 06/30/2017 11:19 AMNote Text:I just spoke with Dr. Mukherjee to verify whether or not the patient's Foleycatheter should stay inserted upon discharge. He stated he wants thecatheter to stay in, and stated it is okay to clamp the patient's PEG tubeprior to discharge while being transported to the facility. Normal [facility] PROGRESSon 06-30-2017 PROGRESS HNO ID: [id number] thor: Charlene Montoyaervice: [facility] MedicineAuthor Type: PhysicianType: Progress NotesFiled: 06/30/2017 9:29 AMNote Text:INPATIENT PROGRESS NOTESERVICE DATE: 06/30/2017SERVICE TIME: AMSPRIMARY SERVICE: SoundSubjectiveCHIEF COMPLAINT: AMSINTERVAL HPI: unable to [...] June 30, 2017 : 9:27 AM PAGER: [place] Normal [facility] Phosphorus Bloodon 8 Phosphate 3.9 mg/dL Normal 2.5-4.9 [facility] Comment on above: Performed By: #### P HOS ####[facility] [place], [place] [address] Basic Panelon 06-29-2017 Creatinine 0.70 mg/dL Normal 0.67-1.17 [facility] Comment on above: Performed By: #### P 8 ####[facility] [place], [place] [address] Urea nitrogen 15 mg/dL Normal 7-18 [facility] Comment on above: Performed By: #### P 8 ####[address] [address] Anion gap 9 mmol/L Normal 8-16 [facility] Comment on above: Performed By: #### P 8 ####[address] [address] Calcium 8.5 mg/dL Normal 8.5-10.1 [facility] Comment on above: Performed By: #### P 8 ####[address] [address] CO2 30 mmol/L Normal 21-32 [facility] Comment on above: Performed By: #### P 8 ####[address] [address] Glucose mass conc 152 mg/dL High 70-99 [facility] Comment on above: Performed By: #### P 8 ####[address] [address] Chloride 103 mmol/L Normal 98-107 [facility] Comment on above: Performed By: #### P 8 ####[address] [address] Potassium molar conc 4.0 mmol/L Normal 3.5-5.1 [facility] Comment on above: Performed By: #### P 8 ####[place] [address] Sodium 138 mmol/L Normal 136-145 [facility] Comment on above: Performed By: #### P 8 ####[place] [address] CASE MANAGEMon 06-29-2017 CASE MANAGEM HNO ID: [id number] thor: Josephine (Rn) Nathan RNService: Care ManagementAuthor Type: Registered NurseType: Care Mgt Progress NoteFiled: 06/29/2017 12:59 PMNote Text:CARE MANAGEMENT PROGRESS NOTESERVICE DATE: 06/29/2017SERVICE TIME: 1258 LOS: 6 daysNeeds Prior to Discharge: [place]'t need precert. Can returnwhen ready.SIGNATURE: Josephine Evans RN PATIENT NAME: Loc McdowellDATE: June 29, 2017 : 12:58 PM PAGER/CONTACT #: [phone] [facility] CASE MANAGEM HNO ID: [id number] Author: Abi (Specialist) Melisa Service: (none) Author Type: (none) Type: Care Mgt Progress Note Filed: 06/29/2017 9:50 AM Note Text: Updates sent to [facility] Normal [facility] CHEST 1 VIEWon 06-29-2017 CHEST 1 VIEW Performed at [facility] APPROVED BY: Mario Alberto Reyes MD EXAMINATION: [...] Other: Visualized osseous structures are unchanged. Normal [facility] Glucose Meteron 06-29-2017 Glucose mass conc 133 mg/dL High 70-99 [facility] Comment on above: Result Comment: RN N OTIFIED Performed By: #### M AG ####[place] [address] Glucose mass conc 148 mg/dL High 70-99 [facility] Comment on above: Result Comment: RN N OTIFIED Performed By: #### M AG ####[address] [address] Glucose mass conc 99 mg/dL Normal 70-99 [facility] Comment on above: Result Comment: RN N OTIFIED Performed By: #### M AG ####[place] [address] Glucose mass conc 198 mg/dL High 70-99 [facility] [facility] Comment on above: Result Comment: RN N OTIFIED Performed By: #### M AG ####[place] [address] Glucose mass conc 116 mg/dL High 70-99 [facility] Comment on above: Result Comment: RN N OTIFIED Performed By: #### M AG ####[place] [address] Glucose mass conc 123 mg/dL High 70-99 [facility] Comment on above: Result Comment: RN N OTIFIED Performed By: #### P 8 ####[place] [address] Glucose mass conc 126 mg/dL High 70-99 [facility] Comment on above: Result Comment: RN N OTIFIED Performed By: #### P 8 ####[place] [address] Hemogram/Diffon 06-29-2017 Abs Immature Grans 0.08 thou/cmm High 0.00-0.05 [facility] Comment on above: Performed By: #### M AG ####[place] [address] Abs. Baso 0.10 thou/cmm High 0.01-0.08 [facility] Comment on above: Performed By: #### M AG ####[place] [address] Abs. [place] 0.90 thou/cmm High 0.30-0.82 [facility] Comment on above: Performed By: #### M AG ####[facility] [place], [place] [address] Abs. Neut 7.08 thou/cmm High 1.78-5.38 [facility] Comment on above: Performed By: #### M AG ####[address] [address] Basophils/100 WBC Auto (Bld) 0.9 % Normal [facility] Comment on above: Performed By: #### M AG ####[address] [address] Eosinophils 0.47 thou/cmm Normal 0.04-0.54 [facility] Comment on above: Performed By: #### M AG ####[place] [address] Eosinophils/100 leukocytes 4.1 % Normal [facility] Comment on above: Performed By: #### M AG ####[place] [address] Erythrocyte distribution width Auto Ratio (RBC) 13.4 % Normal 11.6-14.4 [facility] Comment on above: Performed By: #### M AG ####[place] [address] Erythrocytes (RBC) 3.76 mil/cmm Low 4.63-6.08 [facility] Comment on above: Performed By: #### M AG ####[place] [address] Hematocrit (HCT) 35.5 % Low 40.1-51.0 [facility] Comment on above: Performed By: #### M AG ####[place] [address] Hemoglobin mass conc (Bld) 11.7 g/dL Low 13.7-17.5 [facility] Comment on above: Performed By: #### M AG ####[place] [address] Immature Grans 0.70 % Normal [facility] Comment on above: Performed By: #### M AG ####[facility] [place], [place] [address] Lymphocytes 2.88 thou/cmm High 0.84-2.85 [facility] Comment on above: Performed By: #### M AG ####[address] [address] Lymphocytes/100 leukocytes 25.0 % Normal [facility] Comment on above: Performed By: #### M AG ####[address] [address] MCH 31.1 pg Normal 25.7-32.2 [facility] Comment on above: Performed By: #### M AG ####[address] [address] MCHC mass conc (RBC) 33.0 % Normal 32.3-36.5 [facility] Comment on above: Performed By: #### M AG ####[place] [address] MCV 94.4 fL Normal 83.2-95.6 [facility] Comment on above: Performed By: #### M AG ####[address] [address] Monocytes/100 leukocytes 7.8 % Normal [facility] Comment on above: Performed By: #### M AG ####[address] [address] Platelet mean volume (PMV) 10.1 fL Normal 8.7-12.0 [facility] Comment on above: Performed By: #### M AG ####[address] [address] Platelets 264 thou/cmm Normal 141-365 [facility] Comment on above: Performed By: #### M AG ####[address] [address] RDW SD 46.0 fl High 36.1-45.8 [facility] Comment on above: Performed By: #### M AG ####[address] [address] Seg Neutrophil 61.5 % Normal [facility] Comment on above: Performed By: #### M AG ####[facility] [place], [place] [address] WBC (Leukocytes) 11.52 thou/cmm High 4.23-9.07 [facility] Comment on above: Performed By: #### M AG ####[facility] [place], [place] [address] MDRD GFRon 06-29-2017 eGFR (non-black) mL/min/{1.73_m2} Normal >60mL/m in/ 1.73m2 [facility] Comment on above: Result Comment: If t he patient is , multiply the result by 1.210. Performed By: #### P 8 ####[address] [address] Magnesium Bloodon 06-29-2017 Magnesium 2.1 mg/dL Normal 1.6-2.6 [facility] Comment on above: Performed By: #### P 8 ####[address] [address] NUTRITIONon 06-29-2017 NUTRITION HNO ID: [id number] thor: Chasity (Nikki) CioccaService: Nutrition TherapyAuthor Type: Registered DietitianType: NutritionFiled: [...] is a 67 year old male from [facility] with PMH of leftMCA stroke due to left ICA occlusion in Jan 2017. He has right sidedhemiparesis and global aphasia and a PEG tube from a previous stroke. Hewas diagnosed with a UTI at [facility] and an MRI showed bilateral [...] Palliative care to followpatient with return to [place]. +bowel function, last BM 06/29. Patientdenied nay N/V/D. Labs reviewed, electrolytes WNL, glucose consistentlyhigh. ST re-evaluated patient and recommended dysphagia 1 diet with nectarthick liquids and continue PEG to supplement nutrition.ACTIVE PROBLEM LISTPad (Peripheral Artery Disease) ([facility])WartHtn (Hypertension)Hypercholestere miaAlcohol AbuseArterial Vascular DiseaseSmokerSummaryDm (Diabetes Mellitus) ([facility])Drug ReactionEdemaDiabetic Eye Exam ([facility])Leg pain, bilateralWell Adult ExamScreening for Prostate CancerAcute Ischemic Left Mca Stroke ([facility])Expressive AphasiaCarotid Artery, Internal, Occlusion, BilateralCarotid Occlusion, BilateralPAST MEDICAL HISTORYDiagnosis Date- ALCOHOL ABUSE 10/29/2006- Difficult airway 06/21/2013 Grade III- HTN (hypertension)- PAD (peripheral artery disease) (HCC)- Peripheral vascular disease with claudication (HCC)- Stress hyperglycemia 06/21/2013 06/22/2013 Glucoses 160 on arrival to ICU Was started on RHI gtt perprotocol and converted to Lantus and SSI. 06/23/2013 Check OzY1c-8.5- Tobacco use disorder 10/29/2006Present Diet Order: Isosource 1.5 at goal rate of 52 ml/hr wit 200 mlflush Q4 hoursNutritional Intake: >75% estimated energy needs over the past 6 day(s) asevidenced by TF providing estimated needs during admission.Nutritional Intake Prior to Admission: >75% estimated energy needs overthe past 4 months. Patient was receiving Glucerna 1.5 TF at [facility] with oralintake. He received a bolus of [...] (241 lb 13.5 oz) SpO2 90% BMI 36.77kg/g1Rdaclw Labs 06/29/1802GLUC -- 152*BUN -- 15CREAT -- [...] June 29, 2017 : 11:08 AM PAGER: [phone] [facility] PROGRESSon 06-29-2017 PROGRESS HNO ID: [id number] thor: Charlene Montoyabucy[facility] hospitalice: [facility] MedicineAuthor Type: PhysicianType: Progress NotesFiled: 06/29/2017 3:42 PMNote Text:INPATIENT PROGRESS NOTESERVICE DATE: 06/29/2017SERVICE TIME: 3:29 PMPRIMARY SERVICE: SoundSubjectiveCHIEF COMPLAINT: AMSINTERVAL HPI: unable to ROS 2/2 aphasiaCurrent [facility] medications:hydrALAZINE 10-20 mg injection (APRESOLINE) 10-20 [...] June 29, 2017 : 3:29 PM PAGER: [place] Normal [facility] Phosphorus Bloodon 8 Phosphate 4.8 mg/dL Normal 2.5-4.9 [facility] Comment on above: Performed By: #### P 8 ####[facility] [place] [id number] THERAPY NTon 06-29-2017 THERAPY NT HNO ID: [id number] thor: Phoebe (Otr/L) ThoService: Occupational TherapyAuthor Type: Occupational TherapistType: Therapy (PT/OT/Speech/Resp)Filed: 06/29/2017 3:40 PMNote Text:Occupational Therapy EvaluationSERVICE DATE: 06/29/2017SERVICE TIME: 1415 to 1435ROOM: [id number] Discharge Disposition: Subacute/SNFJustification For Post Acute Needs: [...] InvolvingCognitive Functions and AwarenessInterventions Provided: Evaluation$ Evaluation-Moderate (91911) Billed Units: 1 unitFacilitated safe edge of bed activity, pt required cues to place L hand torail and hold, after a few attempts pt holds self in sitting withrelatively little assist.Total Treatment Time (minutes): 20FUNCTIONAL G CODE:OT 6 Clicks Score: 9 (06/29/17 141) Self Care Current Status (G8987): CL (06/29/17 1415)Self Care Goal Status (G8988): CK (06/29/17 141)Based on clinical assessment and the score on the 6 Clicks FunctionalAssessment Tool, the G code and corresponding severity modifiers aredocumented above.SUBJECTIVE:Current Hospital Course: Chart reviewed;Loc Mcdowell is a 67 year old right-handed male with past medicalhistory significant for L MCA stroke due to L ICA occlusion in 01/25,presently living in long-term with flaccid R hemiparesis and globalaphasia, chronic [...] converted to Lantus and SSI. 06/23/2013 Check UpI7g-5.5- Tobacco use disorder 10/29/2006Patient Report: Pt in [...] June 29, 2017 : 3:34 PM PAGER: [phone] Normal [facility] THERAPY NT HNO ID: [id number] thor: Catarina (Pt) AmandamService: Physical TherapyAuthor Type: Physical TherapistType: Therapy (PT/OT/Speech/Resp)Filed: 06/29/2017 3:04 PMNote Text:Physical Therapy EvaluationSERVICE DATE: 06/29/2017SERVICE TIME: 1420 to 1444ROOM: [id number] Discharge Disposition: Subacute/SNFJustification For Post Acute Needs: [...] of gait and mobility-otherInterventions Provided: Evaluation;Therapeutic Activity (80934)$ Evaluation-Moderate (81559) Billed Units: 1 unitTherapeutic Activity (88714) Treatment Minutes: 40 unitsSkilled Intervention(s): Instructed patient [...] III- HTN (hypertension)- PAD (peripheral artery disease) ([facility])- Peripheral vascular disease with claudication ([facility])- Stress hyperglycemia 06/21/2013 06/22/2013 Glucoses 160 on arrival to ICU Was started on RHI gtt perprotocol and converted to Lantus and SSI. 06/23/2013 Check FrQ9s-7.5- Tobacco use disorder 10/29/2006PAST SURGICAL HISTORYProcedure Laterality [...] forcomplete details for this therapy evaluation/treatment.AVNI Sanchez: Catarina Rain PT PATIENT NAME: Loc McdowellDATE: June 29, 2017 : 2:56 PM PAGER/CONTACT #: [phone] Normal [facility] THERAPY NT HNO ID: [id number] thor: Arianne (Shank Burnisher) SHIRLEY Sow/SLPService: Speech/SwallowAuthor Type: Speech Language PathologistType: Therapy (PT/OT/Speech/Resp)Filed: 06/29/2017 11:22 AMNote Text:Speech Therapy FEES EvaluationSERVICE DATE: 06/29/2017SERVICE TIME: 0900 to 1037ROOM: [id number] Recommendations: Reinforce use of swallowing strategiesDiet Recommendations:? Dysphagia Level 1 (Pureed)? [place] Thick Liquids? Continue PEG to supplement nutrition [...] being conducted according to standard operating procedure.-The DelaGet Nasendoscope Model ENT 3L, serial number [id number] was utilizedduring this assessment.Instrumental Swallow Assessment Type: [...] minimize the signs/symptoms of dysphagia.Patient will tolerate [place] Thick Liquids consistency while utilizingcompensatory/swallow ing strategies [...] phaseInterventions Provided: FEES W Cine Or Video (50449)$ FEES W Cine Or Video (96404) Billed Units: 1 unitTotal Treatment Time (minutes): [...] forcomplete details for this therapy evaluation/treatment.SIGNATUR E: Arianne Sow [facility]-TECHNICAL ASSISTANT PATIENT NAME: Loc McdowellDATE: June 29, 2017 : 11:00 AM PAGER: [phone] Normal [facility] Basic Panelon 06-28-2017 Creatinine 0.61 mg/dL Low 0.67-1.17 [facility] Comment on above: Performed By: #### L IPD2 ####[facility] [place], [place] [address] Glucose mass conc 145 mg/dL High 70-99 [facility] Comment on above: Performed By: #### L IPD2 ####[facility] [place], [place] [address] Urea nitrogen 15 mg/dL Normal 7-18 [facility] Comment on above: Performed By: #### L IPD2 ####[facility] [place], [place] [address] Anion gap 8 mmol/L Normal 8-16 [facility] Comment on above: Performed By: #### L IPD2 ####[facility] [place], [place] [address] Calcium 8.4 mg/dL Low 8.5-10.1 [facility] Comment on above: Performed By: #### L IPD2 ####[facility] [place], [place] [address] CO2 32 mmol/L Normal 21-32 [facility] Comment on above: Performed By: #### L IPD2 ####[facility] [place], [place] [address] Chloride 104 mmol/L Normal 98-107 [facility] Comment on above: Performed By: #### L IPD2 ####[facility] [place], [place] [address] Potassium molar conc 3.8 mmol/L Normal 3.5-5.1 [facility] Comment on above: Performed By: #### L IPD2 ####[facility] [place], [place] [address] Sodium 140 mmol/L Normal 136-145 [facility] Comment on above: Performed By: #### L IPD2 ####[facility] [place], [place] [address] Glucose Meteron 06-28-2017 Glucose mass conc 133 mg/dL High 70-99 [facility] Comment on above: Result Comment: RN N OTIFIED Performed By: #### P 8 ####[address] [address] Glucose mass conc 116 mg/dL High 70-99 [facility] Comment on above: Performed By: #### P 8 ####[address] [address] Glucose mass conc 174 mg/dL High 70-99 [facility] Comment on above: Result Comment: EVITA N OTIFIED Performed By: #### P 8 ####[address] [address] Hemogramon 06-28-2017 Erythrocyte distribution width Auto Ratio (RBC) 13.7 % Normal 11.6-14.4 [facility] Comment on above: Performed By: #### L IPD2 ####[address] [address] Erythrocytes (RBC) 3.72 mil/cmm Low 4.63-6.08 [facility] Comment on above: Performed By: #### L IPD2 ####[facility] [place], [place] [address] Hematocrit (HCT) 33.8 % Low 40.1-51.0 [facility] Comment on above: Performed By: #### L IPD2 ####[facility] [place], [place] [address] Hemoglobin mass conc (Bld) 11.4 g/dL Low 13.7-17.5 [facility] Comment on above: Performed By: #### L IPD2 ####[facility] [place], [place] [address] MCH 30.6 pg Normal 25.7-32.2 [facility] Comment on above: Performed By: #### L IPD2 ####[address] [address] MCHC mass conc (RBC) 33.7 % Normal 32.3-36.5 [facility] Comment on above: Performed By: #### L IPD2 ####[address] [address] MCV 90.9 fL Normal 83.2-95.6 [facility] Comment on above: Performed By: #### L IPD2 ####[address] [address] Platelet mean volume (PMV) 10.1 fL Normal 8.7-12.0 [facility] Comment on above: Performed By: #### L IPD2 ####[facility] [place], [place] [address] Platelets 265 thou/cmm Normal 141-365 [facility] Comment on above: Performed By: #### L IPD2 ####[address] [address] RDW SD 45.3 fl Normal 36.1-45.8 [facility] Comment on above: Performed By: #### L IPD2 ####[address] [address] WBC (Leukocytes) 11.84 thou/cmm High 4.23-9.07 [facility] Comment on above: Performed By: #### L IPD2 ####[facility] [place], [place] [address] MDRD GFRon 06-28-2017 eGFR (non-black) mL/min/{1.73_m2} Normal >60mL/m in/ 1.73m2 [facility] Comment on above: Result Comment: If t he patient is , multiply the result by 1.210. Performed By: #### P 8 ####[address] [address] Magnesium Bloodon 06-28-2017 Magnesium 2.0 mg/dL Normal 1.6-2.6 [facility] Comment on above: Performed By: #### L IPD2 ####[address] [address] NURSING PROGon 06-28-2017 NURSING PROG HNO ID: [id number] thor: Adeel DiazRn) Ramon, RNService: NursingAuthor Type: Registered NurseType: Nursing Progress NoteFiled: 06/27/2017 11:54 PMNote Text: Nursing Progress NotePatient Name: Loc GraysonerMRN: [id number] Location: [place] [address]/[place] [address]*____ Transfer Note:Patient transferred into room/unit 9109 in stable condition. Actionstaken: Report given/called to Alex Rust note was completed by: Adeel Navarro RN Normal [facility] PROGRESSon 06-28-2017 PROGRESS HNO ID: [id number] thor: [place] YooSerslime: Hospital MedicineAuthor Type: PhysicianType: Progress NotesFiled: 06/28/2017 5:48 PMNote Text: Hospital Medicine Progress NotePatient Name: Loc GraysonerMRN: [id number] Date: 06/23/2017Reason For Admission: CVAIMPRESSION AND PLAN:Active [...] - No. Not indicated.Code Status: DNR CCADisposition: rehabOlawole MD Naila Interval History:No new issues since transfer to [...] (241 lb 13.5 oz) SpO2 95% BMI 36.77kg/x0XUABGIKC EXAMINATION:General appearance: Middle aged man, awake, alert, [...] 5*CREAT 0.61* 0.59* 0.52* 0.73 0.52*CHEM:Recent Labs 06/27/1802445CA 8.4* 7.9* 8.0* 7.8* 8.8MG 2.0 2.0 2.2 1.6 1.8HEPATIC: No results for input(s): ALKPHOS, ALT, AST, TBILI, LIPASE in thelast 168 hours.URINALYSIS:No results for input(s): PH, SPGR, UGLUC, UBILI, UKET, UHB,UPROT, UROBIL, UWBC, SSA in the last 168 hours.Invalid input(s): NITRCARDIAC: No results for input(s): CKTEST, CKMB, CKMBP, TROPT, PBNP in thelast 168 hours.[place] Yoo MD5:21 [facility] Normal [facility] Phosphorus Bloodon 06-28- 8 Phosphate 3.9 mg/dL Normal 2.5-4.9 [facility] Comment on above: Performed By: #### L IPD2 ####[address] [address] Basic Panelon 06-27-2017 Creatinine 0.59 mg/dL Low 0.67-1.17 [facility] Comment on above: Performed By: #### C BC1 ####[facility] [place], [place] [address] Calcium 7.9 mg/dL Low 8.5-10.1 [facility] Comment on above: Performed By: #### C BC1 ####[facility] [place], [place] [address] Glucose mass conc 163 mg/dL High 70-99 [facility] Comment on above: Performed By: #### C BC1 ####[facility] [place], [place] [address] Urea nitrogen 13 mg/dL Normal 7-18 [facility] Comment on above: Performed By: #### C BC1 ####[address] [address] Anion gap 9 mmol/L Normal 8-16 [facility] Comment on above: Performed By: #### C BC1 ####[facility] [place], [place] [address] CO2 26 mmol/L Normal 21-32 [facility] Comment on above: Performed By: #### C BC1 ####[facility] [place], [place] [address] Chloride 111 mmol/L High 98-107 [facility] Comment on above: Performed By: #### C BC1 ####[facility] [place], [place] [address] Potassium molar conc 3.4 mmol/L Low 3.5-5.1 [facility] Comment on above: Performed By: #### C BC1 ####[address] [address] Sodium 143 mmol/L Normal 136-145 [facility] Comment on above: Performed By: #### C BC1 ####[address] [address] Glucose Meteron 06-27-2017 Glucose mass conc 120 mg/dL High 70-99 [facility] Comment on above: Performed By: #### L IPD2 ####[facility] [place], [place] [address] Glucose mass conc 157 mg/dL High 70-99 [facility] Comment on above: Performed By: #### L IPD2 ####[address] [address] Glucose mass conc 165 mg/dL High 70-99 [facility] Comment on above: Performed By: #### L IPD2 ####[facility] [place], [place] [address] Glucose mass conc 140 mg/dL High 70-99 [facility] Comment on above: Performed By: #### C BC1 ####[address] [address] Hemogramon 06-27-2017 Erythrocyte distribution width Auto Ratio (RBC) 13.4 % Normal 11.6-14.4 [facility] Comment on above: Performed By: #### C BC1 ####[facility] [place], [place] [address] Erythrocytes (RBC) 3.46 mil/cmm Low 4.63-6.08 [facility] Comment on above: Performed By: #### C BC1 ####[facility] [place], [place] [address] Hematocrit (HCT) 32.6 % Low 40.1-51.0 [facility] Comment on above: Performed By: #### C BC1 ####[place] [address] Hemoglobin mass conc (Bld) 10.6 g/dL Low 13.7-17.5 [facility] Comment on above: Performed By: #### C BC1 ####[place] [address] MCH 30.6 pg Normal 25.7-32.2 [facility] Comment on above: Performed By: #### C BC1 ####[place] [address] MCHC mass conc (RBC) 32.5 % Normal 32.3-36.5 [facility] Comment on above: Performed By: #### C BC1 ####[place] [address] MCV 94.2 fL Normal 83.2-95.6 [facility] Comment on above: Performed By: #### C BC1 ####[place] [address] Platelet mean volume (PMV) 10.6 fL Normal 8.7-12.0 [facility] Comment on above: Performed By: #### C BC1 ####[address] [address] Platelets 238 thou/cmm Normal 141-365 [facility] Comment on above: Performed By: #### C BC1 ####[place] [address] RDW SD 45.5 fl Normal 36.1-45.8 [facility] Comment on above: Performed By: #### C BC1 ####[facility] [place], [place] [address] WBC (Leukocytes) 13.05 thou/cmm High 4.23-9.07 [facility] Comment on above: Performed By: #### C BC1 ####[facility] [place], [place] [address] MDRD GFRon 06-27-2017 eGFR (non-black) mL/min/{1.73_m2} Normal >60mL/m in/ 1.73m2 [facility] Comment on above: Result Comment: If t he patient is , multiply the result by 1.210. Performed By: #### L IPD2 ####[address] [address] Magnesium Bloodon 06-27-2017 Magnesium 2.0 mg/dL Normal 1.6-2.6 [facility] Comment on above: Performed By: #### L IPD2 ####[address] [address] OPERATIVE NOon 06-27-2017 OPERATIVE NO HNO ID: [id number] thor: Anastasia GambinoService: NeurosurgeryAuthor Type: PhysicianType: Operative ReportFiled: 07/04/2017 6:25 PMNote Text:[facility] - Operative ReportSURGEON: ROMELIA AmadorATIENT NAME: LOC MCDOWELL MMRN: [id number] CSN: [id number] OF SURGERY: 06/24/2017DATE OF : 1950 SEX/AGE: M/67PATIENT TYPE: I HOSP SVC: NEUR LOCATION: [id number] OF SURGERY: 06/24/2017SURGEON: ROMELIA AmadorROCEDURE: Cerebral angiography [...] [facility] of [facility] and [...] obtained using micropuncture system.After serial dilatation, a 7-Turkmen shuttle sheath was advanced with itstip in descending thoracic aorta. The shuttle sheath was hooked up andheparinized saline flushed. Through the shuttle sheath, a 5- Turkmen [id number] catheter was advanced and selectively placed in [...] to by enhancing theflow to the brain.The 7-Turkmen shuttle sheath was placed one more time at the right commoncarotid artery over the 5-Turkmen JB1 diagnostic catheter. At this time,diagnosticcatheter was removed through the shuttle sheath and magnified roadmap wasobtained, centered over the right common carotid bifurcation. Then, a 5.5Accunet basket was navigated through the critical stenosis withoutdifficulty and deployed at the proximal intracranial right internalcarotid artery. Over the Accunet microwire, a [place] balloon 2.5 mm x9 mm was advanced [...] carotid/internalcarotid artery is hemodynamically significant.Anastasia Gambino MDNeurologyFA:modlRevised sjb 07/02/17D: 06/27/2017 14:31:31T: 06/27/2017 17:44:20Job #: [id number]:Lul Dupree MD* [facility] OPERATIVE NO HNO ID: [id number] thor: Anastasia GambinoService: NeurosurgeryAuthor Type: PhysicianType: Operative ReportFiled: 06/29/2017 12:24 PMNote Text:[facility] - Operative ReportSURGEON: ROMELIA AmadorATIENT NAME: LOC MCDOWELL MMRN: [id number] CSN: [id number] OF SURGERY: 06/24/2017DATE OF : 1950 SEX/AGE: M/67PATIENT TYPE: I HOSP SVC: NEUR LOCATION: [id number] OF SURGERY: 06/24/2017SURGEON: ROMELIA AmadorROCEDURE: Cerebral angiography [...] and [facility] of [facility] and [...] obtained using micropuncture system.After serial dilatation, a 7-Turkmen shuttle sheath was advanced with itstip in descending thoracic aorta. The shuttle sheath was hooked up andheparinized saline flushed. Through the shuttle sheath, a 5- Turkmen FP3kmuclugjyf catheter was advanced and selectively placed in [...] to by enhancing theflow to the brain.The 7-Turkmen shuttle sheath was placed one more time at the right commoncarotid artery over the 5-Turkmen JB1 diagnostic catheter. At this time,diagnosticcatheter was removed through the shuttle sheath and magnified roadmap wasobtained, centered over the right common carotid bifurcation. Then, a 5.5Accunet basket was navigated through the critical stenosis withoutdifficulty and deployed at the proximal intracranial right internalcarotid artery. Over the Accunet microwire, a Forsyth balloon 2.5 mm x9 mm was advanced [...] Gambino MDNeurologyFA:modlD: 06/27/2017 14:31:31T: 06/27/2017 17:44:20Job #: [id number]:Lul Dupree MD* Elidiaakila Greer Normal [facility] PROGRESSon 06-27-2017 PROGRESS HNO ID: [id number] thor: Lul Romeroervice: NeurologyAuthor Type: PhysicianType: Progress NotesFiled: 06/27/2017 11:16 AMNote Text:Neurointensive CarePt seen and examined, labs/vitals/imaging reviewed.Remains stable from neurologic and respiratory standpoint.Afebrile. To complete course of ceftriaxone today. WBC elevated ?on thebasis of recent steroids for vocal cord edema. Glucose improved.Transfer to floor today. Accepted by Sound.Llu Dupree MD11:16 AMFebruary 2017 Normal [facility] Phosphorus Bloodon 8 Phosphate 2.4 mg/dL Low 2.5-4.9 [facility] Comment on above: Performed By: #### L IPD2 ####[facility] [place] [address] ALLIED HEALTHon 06-26-2017 ALLIED HEALTH HNO ID: [id number] thor: Jamil (Bath Solution Maker) Saw Paulsonervice: Spiritual CareAuthor Type: ChaplainType: Allied HealthFiled: 06/26/2017 1:51 PMNote Text: SPIRITUALCARESpiritual Care Visit- Brief NoteName: Loc McleanRN: [id number]: June 26, 2017Notes: Provided SC to pt through visit and prayer. Through verbalcommunication difficult to pt, was vocally engaged while train station agent prayed,and was able to express appreciation. Offered future SC as needed. Chaplain Signature: Alejandro Abreu contact the [facility] Department:Please call [phone] or Page the On-Call Bath Solution Maker at pager [phone] you for the opportunity to be of service.This is an electronically created document.IF PRINTED, PLEASE DO NOT REMOVE FROM THE CHART OR MODIFY PRINTED COPY. Normal [facility] Basic Panelon 06-26-2017 Creatinine 0.52 mg/dL Low 0.67-1.17 [facility] Comment on above: Performed By: #### C BC1 ####[address] [address] Anion gap 10 mmol/L Normal 8-16 [facility] Comment on above: Performed By: #### C BC1 ####[address] [address] CO2 24 mmol/L Normal 21-32 [facility] Comment on above: Performed By: #### C BC1 ####[address] [address] Glucose mass conc 202 mg/dL High 70-99 [facility] Comment on above: Performed By: #### C BC1 ####[address] [address] Urea nitrogen 9 mg/dL Normal 7-18 [facility] Comment on above: Performed By: #### C BC1 ####[address] [address] Calcium 8.0 mg/dL Low 8.5-10.1 [facility] Comment on above: Performed By: #### C BC1 ####[address] [address] Chloride 111 mmol/L High 98-107 [facility] Comment on above: Performed By: #### C BC1 ####[address] [address] Potassium molar conc 3.7 mmol/L Normal 3.5-5.1 [facility] Comment on above: Performed By: #### C BC1 ####[address] [address] Sodium 141 mmol/L Normal 136-145 [facility] Comment on above: Performed By: #### C BC1 ####[address] [address] CASE MANAGEMon 06-26-2017 CASE MANAGEM HNO ID: [id number] Author: Abi (Specialist) Melisa Service: (none) Author Type: (none) Type: Care Mgt Progress Note Filed: 06/26/2017 9:39 AM Note Text: Updates sent to [place] Normal [facility] Glucose Meteron 06-26-2017 Glucose mass conc 209 mg/dL High 70-99 [facility] Comment on above: Result Comment: EVITA Haas OTIFIED Performed By: #### C BC1 ####[address] [address] Glucose mass conc 189 mg/dL High 70-99 [facility] Comment on above: Result Comment: EVITA Haas OTIFIED Performed By: #### C BC1 ####[address] [address] Glucose mass conc 217 mg/dL High 70-99 [facility] Comment on above: Result Comment: EVITA Haas OTIFIED Performed By: #### G LMET ####[address] [address] Glucose mass conc 202 mg/dL High 70-99 [facility] Comment on above: Result Comment: EVITA Haas OTIFIED Performed By: #### G LMET ####[address] [address] Hemogramon 06-26-2017 Erythrocyte distribution width Auto Ratio (RBC) 13.2 % Normal 11.6-14.4 [facility] Comment on above: Performed By: #### C BC1 ####[address] [address] Erythrocytes (RBC) 3.56 mil/cmm Low 4.63-6.08 [facility] Comment on above: Performed By: #### C BC1 ####[address] [address] Hematocrit (HCT) 33.2 % Low 40.1-51.0 [facility] Comment on above: Performed By: #### C BC1 ####[place] [address] Hemoglobin mass conc (Bld) 10.9 g/dL Low 13.7-17.5 [facility] Comment on above: Performed By: #### C BC1 ####[place] [address] MCH 30.6 pg Normal 25.7-32.2 [facility] Comment on above: Performed By: #### C BC1 ####[place] [address] MCHC mass conc (RBC) 32.8 % Normal 32.3-36.5 [facility] Comment on above: Performed By: #### C BC1 ####[place] [address] MCV 93.3 fL Normal 83.2-95.6 [facility] Comment on above: Performed By: #### C BC1 ####[place] [address] Platelet mean volume (PMV) 10.4 fL Normal 8.7-12.0 [facility] Comment on above: Performed By: #### C BC1 ####[place] [address] Platelets 217 thou/cmm Normal 141-365 [facility] Comment on above: Performed By: #### C BC1 ####[place] [address] RDW SD 45.0 fl Normal 36.1-45.8 [facility] Comment on above: Performed By: #### C BC1 ####[place] [address] WBC (Leukocytes) 8.72 thou/cmm Normal 4.23-9.07 [facility] Comment on above: Performed By: #### C BC1 ####[place] [address] MDRD GFRon 06-26-2017 eGFR (non-black) mL/min/{1.73_m2} Normal >60mL/m in/ 1.73m2 [facility] Comment on above: Result Comment: If t he patient is , multiply the result by 1.210. Performed By: #### C BC1 ####[facility] [place], [place] [address] Magnesium Bloodon 06-26-2017 Magnesium 2.2 mg/dL Normal 1.6-2.6 [facility] Comment on above: Performed By: #### C BC1 ####[facility] [place], [place] [address] NURSING PROGon 06-26-2017 NURSING PROG HNO ID: [id number] thor: Lilly DiazRn) Nino Wongice: (none)Author Type: Registered NurseType: Nursing Progress NoteFiled: 06/26/2017 1:26 AMNote Text: Nursing Progress: Topic: RESTRAINT NON-VIOLENTPATIENT NAME: Loc BrownN: [id number] LOCATION: [place] [address] [address]*The patient demonstrates Attempting to Remove Medical Devices [...] 26, 2017TIME: 1:25 Rosalind Wong RN Normal [facility] PROGRESSon 06-26-2017 PROGRESS HNO ID: [id number] thor: Nancy DiazRn) GARCIA Obrienervice: HospiceAuthor Type: Registered NurseType: Progress NotesFiled: 06/26/2017 3:09 PMNote Text:NURSE AIDE EVALUATOR NOTESERVICE DATE: 06/26/2017SERVICE TIME: 1450Hospice:Met With: Brother(s)Discussed: [...] hemeparesis, PEG, Global aphasia[facility] Presents with change in mentalstatus with R [...] at this time he requestsPalliative services at [place] at Discharge.If Patient were to decline, the goal would be to transition frompalliative to hospice.Reviewed palliative provider choice. Brother requests [facility] [place] to follow patient at [place].PLAN: No Hospice [facility] [place].SIGNATURE: Nancy Obrien RN PATIENT NAME: Loc Fox ReberDATE: June 26, 2017 : 2:50 PM Normal [facility] PROGRESS HNO ID: [id number] thor: Lul Romeroervice: NeurologyAuthor Type: PhysicianType: Progress [...] PRNLABS: CBC, Coags, BMP, Mg, PhosRecent Labs 06/25/18035WBC 8.72 11.05* 11.75*HB 10.9* 11.3* 14.5HCT 33.2* [...] L ICAocclusion in 01/25, 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 Reportedly the pt usually is somewhat interactive and on 06/22 he wasunresponsive with R gaze deviation. He was brought to [facility] ED and dx withUTI, admitted for workup and monitoring; MRI done for workup ofencephalopathy showed unexpectedly bilateral hemispheric strokes. CTAshowed complete occlusion of the L ICA from its origin with short segmenthigh grade stenosis vs occlusion at the R ICA origin. Some L sided limbshaking was seen and the pt was started empirically on Keppra. Pt wastransfer[facility] to [facility] for further care.HOSPITAL COURSE: Pt [...] Dupree.SIGNATURE: JEAN JOHN PA-C PATIENT NAME: Loc McdowellDATE: June 26, 2017 : 2:31 PM PAGER/CONTACT #: [phone] STAFF ADDENDElzbieta Dupree MDExtubated this am after reassuring SBT and positive leak. Pt is nowprotecting airway, oxygenating and ventilating well, and is attempting tophonate. He appears to be at neurologic baseline. Will monitor forrespiratory decompensation in NSICU.PERSONAL INVOLVEMENT IN CARE:??Patient/Family Updated: Patient and/or family were updated regarding thegoals of care,?medical plan for the day, virtualization consultant recommendations,medical disposition and current medical condition/prognosis [...] : 3:02 PM PAGER/CONTACT #: [phone] Normal [facility] PROGRESS HNO ID: [id number] thor: Paula Huerta: Critical CareAuthor Type: PhysicianType: [...] Fr 2 days Airway Airway Endotracheal Tube 06/24/17 2130 1 dayPHYSICAL EXAM:Physical exam performedPHYSICAL EXAM:Physical exam [...] 26, 2017 : 11:16 AM PAGER/CONTACT #: [phone] Normal [facility] Phosphorus Bloodon 8 Phosphate 2.0 mg/dL Low 2.5-4.9 [facility] Comment on above: Performed By: #### C BC1 ####[place] [address] THERAPY NTon 06-26-2017 THERAPY NT HNO ID: [id number] thor: Matilyn (Ccc-Shank Burnisher) Sebastian CCC/SLPService: Speech/SwallowAuthor Type: Speech Language PathologistType: Therapy (PT/OT/Speech/Resp)Filed: 06/26/2017 2:47 PMNote Text:Speech Therapy Clinical Swallow EvaluationSERVICE DATE: 06/26/2017SERVICE TIME: 1410 to 1425RO[address]: [address]ursing Recommendations:See swallow guide posted in patients roomReinforce [...] family: patient on PEG + Puree/NTL at [facility]- Patient would benefit from FEES testing to [...] Dysphagia, oropharyngeal phaseInterventions Provided: Clinical Swallow Evaluation (20531)$ Clinical Swallow Evaluation (45950) Billed Units: 1 unitTotal Treatment Time (minutes): [...] converted to Lantus and SSI. 06/23/2013 Check RwV2l-1.5- Tobacco use disorder 10/29/2006Diagnosis:Carotid artery, internal, occlusion, bilateralReason for consult:Assess swallow s/o extubationPatient Report: HiHome EnvironmentPrior Functional Level: Required AssistancePrior Swallowing Function/Diet Textures: Dysphagia Level 1 (Pureed);NectarThick Liquids (+ PEG)Please see discipline specific clinical documentation flowsheet forcomplete details for this therapy evaluation/treatment.AVNI E: Vanna Cortes [facility]-TECHNICAL ASSISTANT PATIENT NAME: Loc Mcdowell ()DATE: June 26, 2017 : 2:43 PM PAGER: [phone] Normal [facility] THERAPY NT HNO ID: [id number] thor: Sherry Winkler RRTService: Respiratory TherapyAuthor Type: Registered Resp TherapistType: Therapy (PT/OT/Speech/Resp)Filed: 06/26/2017 5:33 AMNote Text:SBT completed x 1 hr. Pt tolerated well. On CPAP PS 5 PEEP 5. Weaningparameters completed.MV 7.7VT 520RR 18RSBI 28VC unableNIF -20 (pt locked out)+ audible leak but unable to measure due to pt continuously coughing whencuff deflated Normal [facility] Basic Panelon 06-25-2017 Creatinine 0.73 mg/dL Normal 0.67-1.17 [facility] Comment on above: Performed By: #### G LMET ####[facility] [place], [place] [address] Calcium 7.8 mg/dL Low 8.5-10.1 [facility] Comment on above: Performed By: #### G LMET ####[address] [address] Glucose mass conc 127 mg/dL High 70-99 [facility] Comment on above: Performed By: #### G LMET ####[address] [address] Urea nitrogen 8 mg/dL Normal 7-18 [facility] Comment on above: Performed By: #### G LMET ####[address] [address] Anion gap 11 mmol/L Normal 8-16 [facility] Comment on above: Performed By: #### G LMET ####[address] [address] CO2 24 mmol/L Normal 21-32 [facility] Comment on above: Performed By: #### G LMET ####[address] [address] Chloride 111 mmol/L High 98-107 [facility] Comment on above: Performed By: #### G LMET ####[address] [address] Potassium molar conc 3.7 mmol/L Normal 3.5-5.1 [facility] Comment on above: Performed By: #### G LMET ####[address] [address] Sodium 142 mmol/L Normal 136-145 [facility] Comment on above: Performed By: #### G LMET ####[place] [id number] CASE MANAGEMon 06-25-2017 CASE MANAGEM HNO ID: [id number] Author: Alison (Specialist) Ben Service: Care Management Author Type: (none) Type: Care Mgt Progress Note Filed: 06/25/2017 1:43 PM Note Text: RNH referral created to [facility]. Thank you. Normal [facility] CASE MANAGEM HNO ID: [id number] thor: Chiqui (Rn) Topher, RNService: Care ManagementAuthor Type: Registered NurseType: Care Mgt Progress NoteFiled: 06/25/2017 1:03 PMNote Text:Chart reviewed, patient remains on Vent support w/ IVsedation and 24hour-EEG monitoring. Spoke w/ Brother Mary Kate via TC [phone]- he indicatespatient [facility]. Referral sent [facility]- await response. D/C plan pending patient improvement. CM bisi to follow for transitional care needs and discharge planning. Normal [facility] CASE MGT INIT ASSESon 2017 CASE MGT INIT ASSES HNO ID: [id number] thor: GARCIA Smyth Rnervice: Care ManagementAuthor Type: Registered NurseType: Care Mgt Initial AssessmentFiled: 06/25/2017 12:59 PMNote Text:CARE MANAGEMENT: ASSESSMENT AND DISCHARGE PLANSERVICE DATE: 06/25/2017SERVICE TIME: 12:49 PMPRIMARY CARE PHYSICIAN:ROMELIA Romerohone: [phone] STATUS: InpatientPOTENTIAL DISCHARGE PLANSSkilled Nursing Facility/Intermediate Care FacilityTo Be DeterminedPatient/Representat enoch Stated Goals: Return to snfHealth Insurance: Medical Gardner ServicesLiving Arrangement: Home, SNF- [facility] With: N/A Patient From FacilityFinancial Resources: RetiredPrimary Contact:Extended Emergency Contact InformationPrimary Emergency Contact: Juan Mcdowell Fsodjw Ithkfucy: BrotherSupportive: YesOther Important Patient Contacts: NoneCAREGIVER ASSESSMENT:Caregiver [...] days? NoHas the Patient Been in a Fdc Facility in the Past 30 days?Yes. Where and Dates: presentFREEDOM OF CHOICE EXPLAINED:Tai/LOIS COMMUNICATION:N/ASIGNATURE: Chiqui Obando RN PATIENT NAME: Loc CoyneTE: June 25, 2017 : 12:49 PM PAGER/CONTACT #: Normal [facility] CHEST 1 VIEWon 06-25-2017 CHEST 1 VIEW Performed at [facility] APPROVED BY: Chad Davis MD EXAM TITLE: [...] pneumothorax. 4. Otherwise no interval change. Normal [facility] CHEST 1 VIEW Performed at [facility] APPROVED BY: MARK FOWLER MD EXAMINATION: CHEST [...] silhouette with mild aortic atherosclerotic calcification. Normal [facility] CONSULTon 06-25-2017 CONSULT HNO ID: [id number] thor: Jameson CastroinService: Critical CareAuthor Type: PhysicianType: ConsultsFiled: 06/25/2017 12:37 AMNote Text:CRITICAL CARE CONSULT NOTESERVICE DATE: 06/24/2017SERVICE TIME: 11:44 PMREASON FOR CONSULT: Respiratory FailureREQUESTING PHYSICIAN: Dr Dupree?ADMITTING PROVIDER: Lul RomeroERVICE DATE: 06/24/2017SERVICE TIME: 11:00 PMAdmission Date: 06/23/2017AGE: 67 year oldLOS: 1 irmyTkoizwlkbg80 yo gentleman who was admitted for acute bilateral hemispheric strokeswith complete occlusion of the L ICA with high grade stenosis at the TIM, mt was having worsening mental status, he came [facility] from [facility] and started to have increase in oxygen requirement with episodes ofapnea, RN called me to assess Mr Reddy, when seen he was in respiratorydistress, patient is ok to intubate per family and primary team, he wassuccessfully intubated ( please see my separate note), he was a difficultairway with anterior larynx and very narrow airway, CXR ordered andconfirmed ET tube positionObjectivePROBLEMS: ACTIVE PROBLEM LISTPad (Peripheral Artery Disease) ([facility])WartHtn (Hypertension)Hypercholestere miaAlcohol AbuseArterial Vascular DiseaseSmokerSummaryDm (Diabetes Mellitus) ([facility])Drug ReactionEdemaDiabetic Eye Exam ([facility])Leg pain, bilateralWell Adult ExamScreening for Prostate CancerAcute Ischemic Left Mca Stroke ([facility])Expressive AphasiaCarotid Artery, Internal, Occlusion, BilateralCarotid Occlusion, BilateralPAST MEDICAL HISTORYDiagnosis Date- ALCOHOL ABUSE 10/29/2006- Difficult airway 06/21/2013 Grade III- HTN (hypertension)- PAD (peripheral artery disease) ([facility])- Peripheral vascular disease with claudication ([facility])- Stress hyperglycemia 06/21/2013 06/22/2013 Glucoses 160 on arrival to ICU Was started on RHI gtt perprotocol and converted to Lantus and SSI. 06/23/2013 Check NzD7q-4.5- Tobacco use disorder 10/29/2006PAST SURGICAL HISTORYProcedure Laterality [...] than 1 day Airway Airway Endotracheal Tube 06/24/172129 less than 1 dayPHYSICAL EXAM PERFORMED:Cardiovascular: Regular rhythmRespiratory: Clear to auscultation%FIO2 Min: 50 Max: 100Abdomen: Soft and NontenderExtremities: Edema- NoNeurologic: sedated with propofolRespiratory/Nursing Documentation:O2 Therapy: Ventilator (06/24/172328)Invasive Ventilator Mode: Pressure Regulated Volume Control ()Set [...] 137K 3.4*CHLOR 102CO2 28CA 8.8MG 1.8ABG:Invalid input(s): C7AFKTZIRyxjgtwlhl/PlanIMPRES IMELDA:Critical Care Documentation: The patient has the [...] : Jameson Barba MD PATIENT NAME: Loc McdowellDATE: June 24, 2017 : 11:44 PM Normal [facility] Glucose Meteron 06-25-2017 Glucose mass conc 141 mg/dL High 70-99 [facility] Comment on above: Result Comment: RN N OTIFIED Performed By: #### G LMET ####[facility] [place] [address] Glucose mass conc 144 mg/dL High 70-99 [facility] Comment on above: Result Comment: RN N OTIFIED Performed By: #### G LMET ####[place] [address] Glucose mass conc 137 mg/dL High 70-99 [facility] Comment on above: Result Comment: RN N OTIFIED Performed By: #### G LMET ####[place] [address] Hemogramon 06-25-2017 Erythrocyte distribution width Auto Ratio (RBC) 13.5 % Normal 11.6-14.4 [facility] Comment on above: Performed By: #### G LMET ####[place] [address] Erythrocytes (RBC) 3.64 mil/cmm Low 4.63-6.08 [facility] Comment on above: Performed By: #### G LMET ####[place] [address] Hematocrit (HCT) 33.4 % Low 40.1-51.0 [facility] Comment on above: Performed By: #### G LMET ####[place] [address] Hemoglobin mass conc (Bld) 11.3 g/dL Low 13.7-17.5 [facility] Comment on above: Performed By: #### G LMET ####[place] [address] MCH 31.0 pg Normal 25.7-32.2 [facility] Comment on above: Performed By: #### G LMET ####[place] [address] MCHC mass conc (RBC) 33.8 % Normal 32.3-36.5 [facility] Comment on above: Performed By: #### G LMET ####[place] [address] MCV 91.8 fL Normal 83.2-95.6 [facility] Comment on above: Performed By: #### G LMET ####[address] [address] Platelet mean volume (PMV) 9.8 fL Normal 8.7-12.0 [facility] Comment on above: Performed By: #### G LMET ####[facility] [place], [place] [address] Platelets 229 thou/cmm Normal 141-365 [facility] Comment on above: Performed By: #### G LMET ####[facility] [place], [place] [address] RDW SD 45.9 fl High 36.1-45.8 [facility] Comment on above: Performed By: #### G LMET ####[address] [address] WBC (Leukocytes) 11.05 thou/cmm High 4.23-9.07 [facility] Comment on above: Performed By: #### G LMET ####[address] [address] MDRD GFRon 06-25-2017 eGFR (non-black) mL/min/{1.73_m2} Normal >60mL/m in/ 1.73m2 [facility] Comment on above: Result Comment: If t he patient is , multiply the result by 1.210. Performed By: #### G LMET ####[address] [address] Magnesium Bloodon 06-25-2017 Magnesium 1.6 mg/dL Normal 1.6-2.6 [facility] Comment on above: Performed By: #### G LMET ####[address] [address] NURSING PROGon 06-25-2017 NURSING PROG HNO ID: [id number] thor: Lilly (Rn) GARCIA Wongervice: (none)Author Type: Registered NurseType: Nursing Progress NoteFiled: 06/25/2017 12:46 AMNote Text: Nursing Progress: Topic: RESTRAINT NON-VIOLENTPATIENT NAME: Loc Fox ReberMRN: [id number] LOCATION: [place] [address] [address]*The patient demonstrates Attempting to Remove Medical Devices [...] June 25, 2017TIME: 12:46 Rosalind Wong RN [facility] PROGRESSon 06-25-2017 PROGRESS HNO ID: [id number] thor: Lul Romeroervice: NeurologyAuthor Type: PhysicianType: Progress [...] L ICAocclusion in 01/25, 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 Reportedly the pt usually is somewhat interactive and on 06/22 he wasunresponsive with R gaze deviation. He was brought to [facility] ED and dx withUTI, admitted for workup and monitoring; MRI done for workup ofencephalopathy showed unexpectedly bilateral hemispheric strokes. CTAshowed complete occlusion of the L ICA from its origin with short segmenthigh grade stenosis vs occlusion at the R ICA origin. Some L sided limbshaking was seen and the pt was started empirically on Keppra. Pt wastransferred to [facility] for further care.HOSPITAL COURSE: Pt [...] thegoals of care,?medical plan for the day, virtualization consultant recommendations,medical disposition and current medical condition/prognosis [...] Dupree MD PATIENT NAME: Loc Fox ReberDATE: 06/25/17 : 2:55 PM PAGER/CONTACT #: [phone] Normal [facility] PROGRESS HNO ID: [id number] thor: Paula Huerta: Critical CareAuthor Type: PhysicianType: Progress NotesFiled: 06/25/2017 10:57 AMNote Text:MICU PROGRESS NOTESERVICE DATE: 06/25/2017SERVICE TIME: 0830Admission Date: 06/23/2017Day #:Day 1 NSCUSubjectiveHPI: This is a 67 year old with PMH of prior CVAs. [facility]/ chronic PEG. Admitted [...] results.LABS: CBC, Coags, BMP, Mg, PhosRecent Labs 02/15/648193 02/14/134329CEP 11.05* 11.75*HB 11.3* 14.5HCT 33.4* 42.3PLT 229 [...] D/W RN and Dr Dupree.5. Ceftriaxone for [facility] STAFF PHYSICIAN NOTE OF PERSONAL INVOLVEMENT IN [...] care services: 40 minutes excludingprocedures.SIGNATURE : KAYLENE JulesESPIRATORY INSTITUTETIME of SERVICE: 10:55 AMSIGNATURE: Paula Diego MD PATIENT NAME: Loc GraysonerDATE: June 25, 2017 : 10:19 AM PAGER/CONTACT #: [phone] Normal [facility] Phosphorus Bloodon 8 Phosphate 3.3 mg/dL Normal 2.5-4.9 [facility] Comment on above: Performed By: #### G LMET ####[place] [address] SOCIAL WORKon 06-25-2017 SOCIAL WORK HNO ID: [id number] thor: Arianne Talavera) BethanService: Social WorkAuthor Type: Social WorkerType: Social WorkFiled: 06/25/2017 11:26 AMNote Text:SOCIAL WORK PROGRESS NOTESERVICE DATE: 06/25/2017SERVICE TIME: 11:24 AM LOS: 2 daysGuardianshipBrother brought letter of guardianship, copy placed in chart and sent toadmitting to be scanned into electronic record.Time Spent (minutes): 15SIGNATURE: DEEPTI Mcmullen PATIENT NAME: Loc GraysonerDATE: June 25, 2017 : 11:24 AM PAGER/CONTACT #: [phone] Normal [facility] THERAPY NTon 06-25-2017 THERAPY NT HNO ID: [id number] thor: Phoebe DiazOtr/Vitor NettlesService: Occupational TherapyAuthor Type: Occupational TherapistType: Therapy (PT/OT/Speech/Resp)Filed: 06/25/2017 10:30 AMNote Text:OCCUPATIONAL THERAPY MISSED VISITSERVICE DATE: 06/25/2017SERVICE TIME: 1029 to 1029ROOM: [id number] Evaluation. Patient not seen due to (intubated with no plansto extubate soon, will D/C). Please re-order when medicallyappropriate/able to participate in OT.SIGNATURE: MARIA T Bustillo/Flash PATIENT NAME: Loc GraysonerDATE: June 25, 2017 : 10:29 AM PAGER/CONTACT #: Normal [facility] THERAPY NT HNO ID: [id number] thor: Vanna (Ccc-Shank Burnisher) SHIRLEY Cortes/SLPService: Speech/SwallowAuthor Type: Speech Language PathologistType: Therapy (PT/OT/Speech/Resp)Filed: 06/25/2017 10:14 AMNote Text:SPEECH THERAPY MISSED VISITSERVICE DATE: 06/25/2017SERVICE TIME: 1015 to 1015ROOM: [place] [address]Attempted Clinical Swallow Evaluation. Patient not seen due to Other: SeeComment (Intubated).SIGNATURE: Vanna Cortes CCC-TECHNICAL ASSISTANT PATIENT NAME: Loc GraysonerDATE: June 25, 2017 : 10:14 AM PAGER/CONTACT #: [phone] [facility] THERAPY NT HNO ID: [id number] thor: Roselyn (Pt) FrancoiseService: Physical TherapyAuthor Type: Physical TherapistType: Therapy (PT/OT/Speech/Resp)Filed: 06/25/2017 1:13 PMNote Text:PHYSICAL THERAPY MISSED VISITSERVICE DATE: 06/25/2017SERVICE TIME: 0822 to 0822ROOM: [place] [address]Attempted Evaluation. Patient not seen due to Illness (intubated andsedated). D/C'd PT order--no plan to extubate any time soon--pleasere-order when appropriateSIGNATURE: Roselyn Owusu PT PATIENT NAME: Loc McdowellDATE: June 25, 2017 : 8:23 AM PAGER/CONTACT #: [phone] [facility] BRIEF OP NOTon 06-24-2017 BRIEF OP NOT HNO ID: [id number] thor: Anastasia Mohamude: NeurosurgeryAuthor Type: PhysicianType: Brief Op NoteFiled: 06/24/2017 4:28 PMNote Text:BRIEF OPERATIVE / PROCEDURE NOTELOG ID: [id number]/Procedure Date: 06/24/2017Incision/Procedure Start Time:Incision Close/Procedure End Time:Surgeon(s)/Proceduralist (s) and Warehouse Pricing And Inventory Clerk(s):Surgeon(s) and Role: * Anastasia Lopez Additional StaffProcedure(s): DCA and Stenting of the Rt CCA/ICAAnesthesia: Procedural SedationFindings: critical pre occlusive stenosis of the RT CCA bifurcation.Old occlusion of the left CCAEstimated Blood Loss: 20 mlsSpecimens: NoneComplications: NonePre-Op/Pre-Procedure Diagnosis: critical pre occlusive stenosis of the RTCCA bifurcation.Post-Op/Post-Proc edure Diagnosis: critical pre occlusive stenosis of theRT CCA bifurcation., S?P stentingSIGNATURE: Anastasia Gambino MD PATIENT NAME: Loc McdowellDATE: June 24, 2017 : 4:26 PM PAGER/CONTACT #: Normal [facility] Basic Panelon 06-24-2017 Creatinine 0.52 mg/dL Low 0.67-1.17 [facility] Comment on above: Performed By: #### P 8 ####[place] [address] Anion gap 10 mmol/L Normal 8-16 [facility] Comment on above: Performed By: #### P 8 ####[place] [address] Chloride 102 mmol/L Normal 98-107 [facility] Comment on above: Performed By: #### P 8 ####[place] [address] Potassium molar conc 3.4 mmol/L Low 3.5-5.1 [facility] Comment on above: Performed By: #### P 8 ####[place] [address] Sodium 137 mmol/L Normal 136-145 [facility] Comment on above: Performed By: #### P 8 ####[place] [address] Glucose mass conc 121 mg/dL High 70-99 [facility] Comment on above: Performed By: #### P 8 ####[place] [address] Urea nitrogen 5 mg/dL Low 7-18 [facility] Comment on above: Performed By: #### P 8 ####[place] [address] Calcium 8.8 mg/dL Normal 8.5-10.1 [facility] Comment on above: Performed By: #### P 8 ####[facility] [place] [address] CO2 28 mmol/L Normal 21-32 [facility] Comment on above: Performed By: #### P 8 ####[facility] [place] [address] CHEST 1 VIEWon 06-24-2017 CHEST 1 VIEW Performed at [facility] APPROVED BY: Ward Lopez MD EXAM TITLE: [...] No evidence of acute intrathoracic process. Normal [facility] CHEST 1 VIEW Performed at [facility] APPROVED BY: Rick Mei MD EXAM TITLE: CHEST 1 VIEW DATE: 06/24/2017 10:06 INDICATION: Abnormal breath sounds. COMPARISON: 06/22/2017. Portable frontal view of the chest shows the lungs to be clear. No infiltrates or effusions. The heart size is normal. Overlying director of retail marketing leads. IMPRESSION: No acute findings radiographically. Normal [facility] CT HEAD W/O CONTRASTon 06-24 CT HEAD W/O CONTRAST Performed at [facility] APPROVED BY: Ward Lopez MD EXAMINATION: CT [...] represent small area of acute hemorrhage. Normal [facility] Glucose Meteron 06-24-2017 Glucose mass conc 124 mg/dL High 70-99 [facility] Comment on above: Result Comment: EVITA Haas OTIFIED Performed By: #### G LMET ####[place] [address] Glucose mass conc 120 mg/dL High 70-99 [facility] Comment on above: Result Comment: EVITA Haas OTIFIED Performed By: #### G LMET ####[place] [address] Glucose mass conc 117 mg/dL High 70-99 [facility] Comment on above: Result Comment: EVITA Haas OTIFIED Performed By: #### G LMET ####[place] [address] Glucose mass conc 120 mg/dL High 70-99 [facility] Comment on above: Result Comment: EVITA Haas OTIFIED Performed By: #### G LMET ####[place] [address] Glucose mass conc 115 mg/dL High 70-99 [facility] Comment on above: Performed By: #### G LMET ####[place] [address] Hemogramon 06-24-2017 Erythrocyte distribution width Auto Ratio (RBC) 12.9 % Normal 11.6-14.4 [facility] Comment on above: Performed By: #### C BC1 ####[address] [address] Erythrocytes (RBC) 4.72 mil/cmm Normal 4.63-6.08 [facility] Comment on above: Performed By: #### C BC1 ####[address] [address] Hematocrit (HCT) 42.3 % Normal 40.1-51.0 [facility] Comment on above: Performed By: #### C BC1 ####[place] [address] Hemoglobin mass conc (Bld) 14.5 g/dL Normal 13.7-17.5 [facility] Comment on above: Performed By: #### C BC1 ####[place] [address] MCH 30.7 pg Normal 25.7-32.2 [facility] Comment on above: Performed By: #### C BC1 ####[address] [address] MCHC mass conc (RBC) 34.3 % Normal 32.3-36.5 [facility] Comment on above: Performed By: #### C BC1 ####[address] [address] MCV 89.6 fL Normal 83.2-95.6 [facility] Comment on above: Performed By: #### C BC1 ####[address] [address] Platelet mean volume (PMV) 9.5 fL Normal 8.7-12.0 [facility] Comment on above: Performed By: #### C BC1 ####[address] [address] Platelets 256 thou/cmm Normal 141-365 [facility] Comment on above: Performed By: #### C BC1 ####[place] [address] RDW SD 42.3 fl Normal 36.1-45.8 [facility] Comment on above: Performed By: #### C BC1 ####[address] [address] WBC (Leukocytes) 11.75 thou/cmm High 4.23-9.07 [facility] Comment on above: Performed By: #### C BC1 ####[address] [address] Hgb A1con 06-24-2017 Glucose mass conc 169 mg/dL Normal [facility] Comment on above: Performed By: #### H A1C ####[address] [address] Hemoglobin A1c/Hemoglobin.total mass fraction (Bld) 7.5 % High 4.2-6.3 [facility] Comment on above: Result Comment: Meth od is National Glycohemoglobin Standardization Program (NGSP) compliant. Performed By: #### H A1C ####[place] [address] Lipid Profileon 06-24-2017 Cholesterol to HDL Ratio 5.6 {ratio} Normal 2.1-7.3 [facility] Comment on above: Performed By: #### L IPD2 ####[address] [address] HDL Cholesterol 36 mg/dL Normal >40 [facility] Comment on above: Performed By: #### L IPD2 ####[place] [address] LDL Cholesterol 127 mg/dL Normal [facility] Comment on above: Result Comment: No C AD and with fewer than 2 CAD risk factors <160 mg/dlNo CAD but with 2 or more CAD risk factors <130 mg/dlDefinite CAD or other atherosclerotic disease <100 mg/dl Performed By: #### L IPD2 ####[address] [address] LDL to HDL Ratio 3.5 Normal 1.1-4.8 [facility] Comment on above: Result Comment: LDL, VLDL,LDL/HDL, Invalid if Triglyceride >400 Performed By: #### L IPD2 ####[facility] [place], [place] [address] Cholesterol 202 mg/dL High 0-199 [facility] Comment on above: Result Comment: <200 [id number] Borderline>240 High Performed By: #### L IPD2 ####[facility] [place], [place] [address] Cholesterol in VLDL mass conc 39 mg/dL Normal <50 Desired [facility] Comment on above: Performed By: #### L IPD2 ####[facility] [place], [place] [address] Triglyceride 194 mg/dL High 0-149 [facility] Comment on above: Result Comment: < 20 0 DesirableResult invalid if not a fasting specimen. Performed By: #### L IPD2 ####[place] [id number] MDRD GFRon 06-24-2017 eGFR (non-black) mL/min/{1.73_m2} Normal >60mL/m in/ 1.73m2 [facility] Comment on above: Result Comment: If t he patient is , multiply the result by 1.210. Performed By: #### G FR ####[place] [address] Magnesium Bloodon 06-24-2017 Magnesium 1.8 mg/dL Normal 1.6-2.6 [facility] Comment on above: Performed By: #### M AG ####[place] [address] NURSING PROGon 06-24-2017 NURSING PROG HNO ID: [id number] thor: Serina (Rn) GARCIA Eliseervice: (none)Author Type: Registered NurseType: Nursing Progress NoteFiled: 06/24/2017 9:11 PMNote Text:Pts resp status declined to using abdomen/accesory muscles with shortperiods of apnea. Spoke with Dr Dupree [facility] by RT while [facility]. During this time, also called Mary Kate who is listed as thepatients POA. Mary Kate stated to myself and Kathleen Denilson, RN that he wanted thept intubated if the physician felt he needed it at least short term. Allegra at bedside, ordered immediate intubation. Pt is currently beingintubated. Per Dr Dupree, pts code status changed to CCA and the orderwas updated to reflect CCA. Normal [facility] NURSING PROG HNO ID: [id number] thor: Lilly (Rn) GARCIA Wongervice: (none)Author Type: [...] O2 sats 95-100%. Wheezes noted upper airway. SENIOR CYBER SECURITY ANALYST paged tobedside and NRB applied. Dr Dupree [...] Barba at bedside with NSICU team and SENIOR CYBER SECURITY ANALYST ready to intubate.Timeout complete.2114- 2 mg versed given, 20 mg etomidate given.2117- 25 mcg fentanyl given.2121- 2 mg versed given.2123- Tube insert size 7 ETT 23 THEA, + color change, breath sounds + b/l.2128- Additional 2mg versed given. See mar for all medical assistant float.2299- Spoke with Dr Tay- orders obtained for vent settings, breathingtx and CXR to verify placement.509- Spoke with Dr Dupree- he is aware of low UO, intermittent twitchin R foot. Orders obtained for routine EEG and 1 liter NS bolus. Normal [facility] NURSING PROG HNO ID: [id number] thor: Robbie (Rn) GARCIA Perezervice: NursingAuthor Type: Registered NurseType: Nursing Progress NoteFiled: 06/24/2017 7:41 PMNote Text:At 1835 Dr. Gambino informed that patient is not moving left armspontaneously and is only extending it to pain. Dr. Dupree pagedmultiple times in between 1835 and 0 to inform of change in assessmentwithout return of phone call. Normal [facility] NUTRITIONon 06-24-2017 NUTRITION HNO ID: [id number] thor: Alyssa Segal) FIORELLA Reaveservice: Nutrition TherapyAuthor Type: Registered DietitianType: NutritionFiled: 06/24/2017 1:26 PMNote Text:NUTRITION THERAPY INITIAL ASSESSMENTSERVICE DATE: 06/24/2017SERVICE TIME: 12:37 PMRECOMMENDED MALNUTRITION DIAGNOSIS: NO MALNUTRITION IDENTIFIEDNUTRITION CARE PLAN:Problem, Etiology and Signs/Symptoms:Dysphagia from previous stroke aeb peg placement. Pt receives Glucerna 1.5TF at [facility]. It appears he was taking a po [...] be determinedPer HPI: Loc Mcdowell is from [facility]. He has pmh of leftMCA stroke due to left ICA occlusion in Jan 2017. He has right sidedhemiparesis and global aphasia and a PEG tube from a previous stroke. Hewas diagnosed with a UTI at [facility] and an MRI showed bilateral hemisphericstrokes. CTA also showed complete occlusion of the left ICA from itsorigin with a short segment of high grade stenosis vs occlusion at theright ICA origin. Pt was started on Keppra and [facility].PAST MEDICAL HISTORYDiagnosis Date- ALCOHOL ABUSE 10/29/2006- Difficult airway 06/21/2013 Grade III- HTN (hypertension)- PAD (peripheral artery disease) (HCC)- Peripheral vascular disease with claudication (HCC)- Stress hyperglycemia 06/21/2013 06/22/2013 Glucoses 160 on arrival to ICU Was started on RHI gtt perprotocol and converted to Lantus and SSI. 06/23/2013 Check HfJ2c-1.5- Tobacco use disorder 10/29/2006Present Diet Order: NPO [...] kg (215 lb)05/20/13 : 98.9 kg (218 lb)[place] Body Weight: 70kgResting Metabolic Rate: 1815Estimated kilocalorie [...] lb 7.5 oz) SpO2 96% BMI 36.03 kg/n0Dbfvki Labs GLUC 121*BUN 5*CREAT 0.52*NA 137K 3.4*CHLOR [...] unitsSIGNATURE: Alyssa Reaves RD PATIENT NAME: Loc GraysonerDATE: June 24, 2017 : 12:37 PM PAGER: [phone] Normal [facility] PROCEDUREon 06-24-2017 PROCEDURE HNO ID: [id number] thor: Jameson Simonervice: Critical CareAuthor Type: PhysicianType: ProceduresFiled: 06/24/2017 9:38 [...] HereSIGNATURE: Jameson Barba MD PATIENT NAME: Loc McdowellDATE: June 24, 2017 : 9:32 PM PAGER/CONTACT #: Jorge A [facility] PROGRESSon 06-24-2017 PROGRESS HNO ID: [id number] thor: Lul Romeroervice: NeurologyAuthor Type: PhysicianType: Progress [...] PRNLABS: CBC, Coags, BMP, Mg, PhosRecent Labs 06/24/557620XVM 11.75*HB 14.5HCT 42.3PLT 256NA 137K 3.4*CHLOR 102CO2 [...] L ICAocclusion in 01/25, 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 Reportedly the pt usually is somewhat interactive and on 06/22 he wasunresponsive with R gaze deviation. He was brought to [facility] ED and dx withUTI, admitted for workup and monitoring; MRI done for workup ofencephalopathy showed unexpectedly bilateral hemispheric strokes. CTAshowed complete occlusion of the L ICA from its origin with short segmenthigh grade stenosis vs occlusion at the R ICA origin. Some L sided limbshaking was seen and the pt was started empirically on Keppra. [facility] further care.HOSPITAL COURSE: Pt [...] JOHN PA-C PATIENT NAME: Loc GraysonerDATE: June 24, 2017 : 4:03 PM PAGER/CONTACT #: [phone] STAFF ADDENDElzbieta Dupree MDAwait results of angio. F/u CXR d/t concern for aspiration. C/w dualantiplatelets, permissive HTN. Ceftriaxone for UTI. Monitor in NSICU fordecompensation.PERSONAL INVOLVEMENT IN CARE:??Patient/Family Updated: Patient and/or family were updated regarding thegoals of care,?medical plan for the day, virtualization consultant recommendations,medical disposition and current medical condition/prognosis [...] Lul Dupree MD PATIENT NAME: Loc GraysonerDATE: 06/24/17 : 4:44 PM PAGER/CONTACT #: [phone] [facility] PROGRESS HNO ID: [id number] thor: Emma Horner (Pharmacist)Service: PharmacyAuthor Type: PharmacistType: Progress NotesFiled: 06/24/2017 11:29 AMNote Text:MEDICATION HISTORYPatient Name:Tiny Fox ReberMRN: [id number]: 1950Source of history:correction/Other [facility] OrderSummary ReportMedication Nonadherence Identified: No barriers notedThe above information represents the best possible medication history: YesAdditional comments:Please note the following changes made from the initial medication list:-Deleted Percocet (not a current medication)-Deleted garlic (not a current medication)-Changed Lipitor dose from 20 mg to 80 mg QHS-Changed aspirin dose from 81 mg to 162 mg dailyAllergies: ALLERGIESNo Known AllergiesCurrent LOGGER ALL ROUND Medications:Prior to Admission medications as of 06/24/17 [...] Pierre HORNER, PHARMACISTFebruary 2017 11:25 AM Normal [facility] Phosphorus Bloodon 8 Phosphate 3.0 mg/dL Normal 2.5-4.9 [facility] Comment on above: Performed By: #### P HOS ####[place] [address] SOCIAL WORKon 06-24-2017 SOCIAL WORK HNO ID: [id number] thor: Arianne Talavera) SussmanService: Social WorkAuthor Type: Social WorkerType: Social WorkFiled: 06/24/2017 12:12 PMNote Text:SOCIAL WORK CONSULT NOTESERVICE DATE: 06/24/2017SERVICE TIME: 12:00 PMReferred by: Bertrand for visit:Stroke Recovery - Depression Screen Not IndicatedLiving Arrangement: nursing homeLives With:Financial Resources:Primary Contact:Extended Emergency Contact InformationPrimary Emergency Contact: Saqib Mcdowell Qmocce Rvwdefto: BrotherSupportive:Other Important Patient Contact: Brother/guardian Mary Kate [phone] Insurance:Loc Mcdowell is a 67 year old male who is on the stroke recovery team.Reviewed chart and contact brother Leonor,[phone]. He confirms that patient resides in a long-term andhe is patient's guardian, appointed thru [facility] in Mar 2017.Brother will visit later today, and will bring guardianship documents forchart. He confirms patient never completed advance directive documents inrist.Social work will continue to follow.Outcome/Recommendation s:Time spent (minutes): 30SIGNATURE: DEEPTI Mcmullen PATIENT NAME: Loc McdowellDATE: June 24, 2017 : 12:00 PM PAGER/CONTACT#: [phone] Normal [facility] THERAPY NTon 06-24-2017 THERAPY NT HNO ID: [id number] thor: Vanna DiazCcc-Shank BurnisherDiamond Cortes CCC/SLPService: Speech/SwallowAuthor Type: Speech Language PathologistType: Therapy (PT/OT/Speech/Resp)Filed: 06/24/2017 3:24 PMNote Text:SPEECH THERAPY MISSED VISITSERVICE DATE: 06/24/2017SERVICE TIME: 1525 to 1525ROOM: NEURO POOLAttempted Clinical Swallow Evaluation. Patient not seen due toTest/Procedure. Will assess at another date/time.SIGNATURE: YAIMA Bryson PATIENT NAME: Loc McdowellDATE: June 24, 2017 : 3:24 PM PAGER/CONTACT #: [phone] Normal [facility] THERAPY NT HNO ID: [id number] thor: Phoebe DiazOtr/Vitor NettlesService: Occupational TherapyAuthor Type: Occupational TherapistType: Therapy (PT/OT/Speech/Resp)Filed: 06/24/2017 11:40 AMNote Text:OCCUPATIONAL THERAPY MISSED VISITSERVICE DATE: 06/24/2017SERVICE TIME: 1139 to 1139ROOM: [id number]-Attempted Evaluation. Patient not seen due to (pt sleeping unable toarouse, to angio this pm).SIGNATURE: MARIA T Bustillo/Flash PATIENT NAME: Loc CoyneTE: June 24, 2017 : 11:40 AM PAGER/CONTACT #: Normal [facility] THERAPY NT HNO ID: [id number] thor: Roselyn (Pt) FrancoiseService: Physical TherapyAuthor Type: Physical TherapistType: Therapy (PT/OT/Speech/Resp)Filed: 06/24/2017 8:45 AMNote Text:PHYSICAL THERAPY MISSED VISITSERVICE DATE: 06/24/2017SERVICE TIME: 0844 to 08ROOM: [place] [address]Attempted Evaluation. Patient not seen due to Sleeping. Called name,gave sternal rub and moved UEs--did not wake up--snoring loudly--RN awarePt going to angioplasty this pm--will wait and eval tomorrow as ableSIGNATURE: Roselyn Owusu, DEONTE PATIENT NAME: Loc McdowellDATE: June 24, 2017 : 8:44 AM PAGER/CONTACT #: [phone] Normal [facility] ABDOMEN 1 VIEWon 06-23-2017 ABDOMEN 1 VIEW Performed at [facility] APPROVED BY: Percy Bernal MD KUB TYPE [...] Gastrostomy tube. Nonobstructive bowel gas pattern. Normal [facility] CONSULTon 06-23-2017 CONSULT HNO ID: [id number] Author: Anastasia Gambino Service: Neurosurgery Author Type: Physician Type: Consults Filed: 06/23/2017 4:26 PM Note Text: Consult dictated. Normal [facility] CONSULT HNO ID: [id number] thor: Anastasia Wilcox: NeurosurgeryAuthor Type: PhysicianType: ConsultsFiled: 06/29/2017 12:23 PMNote Text:[facility] - ConsultationPATIENT NAME: LOC MCDOWELL MMRN: [id number] CSN: [id number] OF : 1950 SEX/AGE: M/67PATIENT TYPE: I HOSP SVC: NEUR LOCATION: [id number]/23/2017CHIEF COMPLAINT: Recent watershed infarction in the right [...] Gambino MDNeurologyFA:modlD: 06/23/2017 17:23:04T: 06/24/2017 00:20:24Job #: [id number] Normal [facility] HISTORY PHYSICALon HISTORY PHYSICAL HNO ID: [id number] thor: Lul Romeroervice: NeurologyAuthor Type: PhysicianType: HANDPFiled: [...] L ICAocclusion in 01/25, 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 Reportedly the pt usually is somewhat interactive and on 06/22 he wasunresponsive with R gaze deviation. He was brought to [facility] ED and dx withUTI, admitted for workup and monitoring; MRI done for workup ofencephalopathy showed unexpectedly bilateral hemispheric strokes. CTAshowed complete occlusion of the L ICA from its origin with short segmenthigh grade stenosis vs occlusion at the R ICA origin. Some L sided limbshaking was seen and the pt was started empirically on Keppra. Pt wastransferred to [facility] for further care.HOSPITAL COURSE: Pt [...] converted to Lantus and SSI. 06/23/2013 Check KaU9r-7.5- Tobacco use disorder 10/29/2006PAST SURGICAL HISTORYProcedure Laterality [...] output data in the 24 hours ending [id number] EXAMNeuro: Obtunded, not making eye contact, not [...] 23, 2017 : 2:34 PM PAGER/CONTACT #: [phone] [facility] HOSPon 06-23-2017 HOSP Patient:Jo Mcdowell [...] mL injection (DEFINITY)Problem List:PAD (peripheral artery disease) (HCC) [I73.9]Wart [B07.9]HTN (hypertension) [I10]Hypercholesteremia [E78.00]Alcohol abuse [F10.10]Arterial vascular disease [I70.90]Smoker [F17.200]SUMMARY [V999.95]DM (diabetes mellitus) ([facility]) [E11.9]Drug reaction [T88.7XXA]Edema [R60.9]Diabetic eye exam ([facility]) [E11.9, Z01.00]Leg pain, bilateral [M79.606]Well adult exam [Z00.00]Screening for prostate cancer [Z12.5]Acute ischemic left MCA stroke ([facility]) [I63.512]Expressive aphasia [R47.01]Carotid artery, internal, occlusion, bilateral [I65.23]Carotid occlusion, bilateral [I65.23]Allergies:No Known AllergiesDate Verified:06/24/17Lab ValuesLab Value Units Date High LowPOTA* 3.4 mEq/L 06/24/2017 5.1 3.5HEMA* 42.3 % 06/24/2017 51.0 40.1Progress Notes ():Anastasia Gambino MD 06/24/2017 12:23 AM Unsigned [facility] - ConsultationPATIENT NAME: LOC MCDOWELL MMRN: [id number] CSN: [id number] OF : 1950 SEX/AGE: M/67PATIENT TYPE: I HOSP SVC: NEUR LOCATION: [id number] COMPLAINT: Recent watershed infarction in the right hemisphere.CONSULTATION: I appreciate the consult. I am seeing this patient per requestof Dr. Dupree in Neurointensive Care Unit.HISTORY OF PRESENT ILLNESS: Mr. Mcdowell is a 67-year-old male, whopresented to outside institution with sudden onset of significant left-sidedweakness and difficult to arouse. [facility] Upon clinical examination, at this [...] Gambino MDNeurologyFA:modlD: 06/23/2017 17:23:04T: 06/24/2017 00:20:24Job #: [id number] MD Jay 06/23/2017 2:45 PM SignedHANDP ICU [...] L ICA occlusion in01/25, presently living in long-term with flaccid R hemiparesis and globalaphasia, chronic PEG, who was found on 06/22 with AMS. Reportedly the pt usuallyis somewhat interactive and on 06/22 he was unresponsive with R gaze deviation.He was brought to [facility] ED and dx with UTI, admitted for workup and monitoring;MRI done for workup of encephalopathy showed unexpectedly bilateral hemisphericstrokes. CTA showed complete occlusion of the L ICA from its origin with shortsegment high grade stenosis vs occlusion at the R ICA origin. Some L sidedlimbshaking was seen and the pt was started empirically on Keppra. [facility].HOSPITAL COURSE: Pt [...] converted to Lantus and SSI. 06/23/2013 Check UpJ0r-0.5- Tobacco use disorder 10/29/2006PAST SURGICAL HISTORYProcedure Laterality [...] 23, 2017 : 2:34 PM PAGER/CONTACT #: [phone] Gambino MD 06/23/2017 4:26 PM SignedConsult dictated.Roselyn Owusu PT 06/24/2017 8:45 AM SignedPHYSICAL THERAPY MISSED VISITSERVICE DATE: 06/24/2017SERVICE TIME: 0844 to 0844ROOM: [id number] Evaluation. Patient not seen due to Sleeping. Called name, gavesternal rub and moved UEs--did not wake up--snoring loudly--RN awarePt going to angioplasty this pm--will wait and eval tomorrow as ableSIGNATURE: Roselyn Owusu PT PATIENT NAME: Loc McdowellDATE: June 24, 2017 : 8:44 AM PAGER/CONTACT #: [phone] GEORGE 06/24/2017 11:29 AM SignedMEDICATION HISTORYPatient Name:.Loc GraysonerMRN: [id number]: 1950Source of history:correction/Other [facility] Order SummaryReportMedication Nonadherence Identified: No barriers notedThe above information represents the best possible medication history: YesAdditional comments:Please note the following changes made from the initial medication list:-Deleted Percocet (not a current medication)-Deleted garlic (not a current medication)-Changed Lipitor dose from 20 mg to 80 mg QHS-Changed aspirin dose from 81 mg to 162 mg dailyAllergies: ALLERGIESNo Known AllergiesCurrent LOGGER ALL ROUND Medications:Prior to Admission medications as of 06/24/17 [...] pain Jean Pierre HORNER, PHARMACISTFebruary 2017 11:25 RACHEL Mcguire 06/24/2017 11:40 AM SignedOCCUPATIONAL THERAPY MISSED VISITSERVICE DATE: 06/24/2017SERVICE TIME: 1139 to 1139ROOM: [id number] Evaluation. Patient not seen due to (pt sleeping unable to arouse,to angio this pm).SIGNATURE: RACHEL Bustillo PATIENT NAME: Loc McdowellDATE: June 24, 2017 : 11:40 AM PAGER/CONTACT #:DEEPTI Mcmullen 06/24/2017 12:12 PM SignedSOCIAL WORK CONSULT NOTESERVICE DATE: 06/24/2017SERVICE TIME: 12:00 PMReferred by: Bertrand for visit:Stroke Recovery - Depression Screen Not IndicatedLiving Arrangement: nursing homeLives With:Financial Resources:Primary Contact:Extended Emergency Contact InformationPrimary Emergency Contact: Saqib Mcdowell Dvfrvr Xnzxdwgl: BrothSitaupportive:Other Important Patient Contact: Brother/guardian Mary Kate [phone] Insurance:Loc Mcdowell is a 67 year old male who is on the stroke recovery team.Reviewed chart and contact brother Leonor,[phone]. He confirms that patient resides in a long-term and he ispatient's guardian, appointed thru [facility] in Mar 2017. Brother willvisit later today, and will bring guardianship documents for chart. He confirmspatient never completed advance directive documents in past.Social work will continue to follow.Outcome/Recommendation s:Time spent (minutes): 30SIGNATURE: DEEPTI Mcmullen PATIENT NAME: Loc McdowellDATE: June 24, 2017 : 12:00 PM PAGER/CONTACT#: [phone] Nichols, RD, NIKKI 06/24/2017 1:26 PM SignedNUTRITION [...] likely have increased insulin needs due to CCAG does not carry Glucerna1.5 and Isosource 1.5 has more carbohydrate than Glucerna.Monitor and Evaluation:Goal: Meet >75% of estimated needsMonitor fluid/electrolyte balanceMonitor labs, I/Os, vital signs, weightMonitor tolerance to tube feedingDischarge Nutrition Recommendations:Diet: to be determinedPer HPI: oLc Mcdowell is from [facility]. 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 He has right sided hemiparesisand global aphasia and a PEG tube from a previous stroke. He was diagnosed witha UTI at [facility] and an MRI showed bilateral hemispheric strokes. CTA also showedcomplete occlusion of the left ICA from its origin with a short segment of highgrade stenosis vs occlusion at the right ICA origin. Pt was started on Keppraand transferred to [facility] for [facility] care.PAST MEDICAL HISTORYDiagnosis Date- ALCOHOL ABUSE 10/29/2006- Difficult airway 06/21/2013 Grade III- HTN (hypertension)- PAD (peripheral artery disease) ([facility])- Peripheral vascular disease with claudication ([facility])- Stress hyperglycemia 06/21/2013 06/22/2013 Glucoses 160 on arrival to ICU Was started on RHI gtt per protocoland converted to Lantus and SSI. 06/23/2013 Check FpE8h-4.5- Tobacco use disorder 10/29/2006Present Diet Order: NPO [...] kg (215 lb)05/20/13 : 98.9 kg (218 lb)[place] Body Weight: 70kgResting Metabolic Rate: 1815Estimated kilocalorie needs: 1750 - 1960 kilocalories determined by 25 - 28kcal/kg IBWEstimated protein needs: 84 - 1.5 grams determined by 1.2 - 1.5 [place] weightEstimated fluid needs: 2100 milliliters based on [...] lb 7.5 oz) SpO2 96% BMI 36.03 kg/f6[facility] GLUC 121*BUN 5*CREAT 0.52*NA 137K 3.4*CHLOR [...] June 24, 2017 : 12:37 PM PAGER: [phone] Normal [facility] MRI BRAIN W/O CONTRASTon MRI BRAIN W/O CONTRAST Performed at [facility] APPROVED BY: Ovi Bajwa MD EXAMINATION: MRI [...] well as the vertebral basilar system. Normal [facility] MRSA Screenon 06-23-2017 MRSA Screen Test performed at [facility] No MRSA detected. Normal [facility] Comment on above: Performed By: #### M RSA ####[address] [address] Culture, urine Bacteria identified Cx Nom (U) Staphylococcus haemolyticus [facility] Work Phone: Influenza virus A and B and SARS-CoV-2 (COVID-19) Ag panel - Upper respiratory specim SARS-CoV-2 & FLU Antigen (Rapid) Influenzae B [facility] Work Phone: Respiratory pathogens DNA an d RNA 12b panel BRET+probe (Unsp spec) Respiratory Panel (PCR) Influenza A (Subtype H1) [facility] Work Phone: Vital Signs Date Time Vital Sign Value Performing Clinician Facility 02-09-2025 02:36-0400 Body temperature 98 [degF] Dr. Marcin Joseph MD Work Phone: [facility] 02-09-2025 02:36-0400 Diastolic blood pressure 90 mm[Hg] Dr. Marcin Joseph MD Work Phone: [facility] 02-09-2025 02:36-0400 Heart rate 72 /min Dr. Marcin Joseph MD Work Phone: [facility] 02-09-2025 02:36-0400 Respiratory rate 16 /min Dr. Marcin Joseph MD Work Phone: [facility] 02-09-2025 02:36-0400 SaO2% (BldA) [Mass fraction] 96 % Dr. Marcin Joseph MD Work Phone: [facility] 02-09-2025 02:36-0400 Systolic blood pressure 151 mm[Hg] Dr. Marcin Joseph MD Work Phone: [facility] 02-09-2025 00:32-0400 Body height 172.[address] Marcin Joseph MD Work Phone: [facility] 02-09-2025 00:32-0400 Body mass index (BMI) [Ratio] 41.5 kg/m2 Dr. Marcin Joseph MD Work Phone: [facility] 02-09-2025 00:32-0400 Body weight 124.[address] Marcin Joseph MD Work Phone: [facility] 12-23-2024 08:00-0400 Diastolic blood pressure 65 mm[Hg] Dr. Marcin Joseph MD Work Phone: 4(686)275-343176 [place] [address] 12-23-2024 08:00-0400 Heart rate 71 /min Dr. Marcin Joseph MD Work Phone: 3(804)955-863576 [place] [address] 12-23-2024 08:00-0400 Respiratory rate 16 /min Dr. Marcin Joseph MD Work Phone: 0(394)672-524476 [place] [address] 12-23-2024 08:00-0400 SaO2% (BldA) [Mass fraction] 95 % Dr. Marcin Joseph MD Work Phone: 4(286)613-224276 [place] [address] 12-23-2024 08:00-0400 Systolic blood pressure 138 mm[Hg] Dr. Marcin Joseph MD Work Phone: 7(453)846-728376 [place] [address] 12-23-2024 01:26-0400 Body temperature 97.9 [degF] Dr. Marcin Joseph MD Work Phone: 2(191)346-148076 [place] [address] 12-23-2024 00:25-0400 Body height 172.[address] Marcin Joseph MD Work Phone: 9(804)784-545376 [place] [address] 12-23-2024 00:25-0400 Body mass index (BMI) [Ratio] 44.4 kg/m2 Dr. Marcin Joseph MD Work Phone: 4(256)981-696476 [place] [address] 12-23-2024 00:25-0400 Body weight 132.[address] Marcin Joseph MD Work Phone: 7(613)696-292476 [place] [address] 09-24-2024 13:22-0400 Diastolic blood pressure 66 mm[Hg] Dr. Marcin Joseph MD Work Phone: 2(462)460-210376 [place] [address] 09-24-2024 13:22-0400 Heart rate 72 /min Dr. Marcin Joseph MD Work Phone: 0(943)927-017076 [place] [address] 09-24-2024 13:22-0400 Respiratory rate 17 /min Dr. Marcin Joseph MD Work Phone: 0(536)783-736576 [place] [address] 09-24-2024 13:22-0400 SaO2% (BldA) [Mass fraction] 95 % Dr. Marcin Joseph MD Work Phone: [facility] 09-24-2024 13:22-0400 Systolic blood pressure 142 mm[Hg] Dr. Mracin Joseph MD Work Phone: [facility] 09-24-2024 11:46-0400 Body temperature 98 [degF] Dr. Marcin Joseph MD Work Phone: 4(412)436-930879 [place] [address] 09-24-2024 11:00-0400 Inhaled oxygen flow rate 2 L/min Dr. Marcin Joseph MD Work Phone: [facility] 09-24-2024 09:52-0400 Body height 172.[address] Marcin Joseph MD Work Phone: 1(533)778-033275 [address] 09-24-2024 09:52-0400 Body mass index (BMI) [Ratio] 45.3 kg/m2 Dr. Marcin Joseph MD Work Phone: 4(606)940-642879 [place] [address] 09-24-2024 09:52-0400 Body weight 135.[address] Marcin Joseph MD Work Phone: [facility] 07-10-2023 20:04-0500 Body temperature 97.9 [degF] Dr. Marcin Joseph Work Phone: [facility] 07-10-2023 20:04-0500 Diastolic blood pressure 72 mm[Hg] Dr. Marcin Joseph Work Phone: 8(957)129-624479 [place] [address] 07-10-2023 20:04-0500 Heart rate 78 /min Dr. Marcin Joseph Work Phone: [facility] 07-10-2023 20:04-0500 Respiratory rate 16 /min Dr. Marcin Joseph Work Phone: [facility] 07-10-2023 20:04-0500 SaO2% (BldA) [Mass fraction] 97 % Dr. Marcin Joseph Work Phone: [facility] 07-10-2023 20:04-0500 Systolic blood pressure 134 mm[Hg] Dr. Marcin Joseph Work Phone: [facility] 07-10-2023 15:46-0500 Body height 172.[address] Marcin Joseph Work Phone: [facility] 07-10-2023 15:46-0500 Body mass index (BMI) [Ratio] 44.9 kg/m2 Dr. Marcin Joseph Work Phone: [facility] 07-10-2023 15:46-0500 Body weight 134.[address] Marcin Joseph Work Phone: [facility] 02-19-2023 15:19-0400 Body temperature 98.5 [degF] [facility] 02-19-2023 15:19-0400 Diastolic blood pressure 58 mm[Hg] [facility] 02-19-2023 15:19-0400 Heart rate 78 /min [facility] 02-19-2023 15:19-0400 Respiratory rate 15 /min [facility] 02-19-2023 15:19-0400 SaO2% (BldA) [Mass fraction] 94 % [facility] 02-19-2023 15:19-0400 Systolic blood pressure 124 mm[Hg] [facility] 02-19-2023 10:11-0400 Body height 172.72 cm [facility] 02-19-2023 10:11-0400 Body mass index (BMI) [Ratio] 44 kg/m2 [facility] 02-19-2023 10:11-0400 Body weight 131.4 kg [facility] 05-11-2022 14:34-0500 Body temperature 97.9 [degF] Dr. Marcin Joseph Work Phone: [facility] Work Phone: 05-11-2022 14:34-0500 Diastolic blood pressure 61 mm[Hg] Dr. Marcin Joseph Work Phone: [facility] Work Phone: 05-11-2022 14:34-0500 Heart rate 84 /min Dr. Marcin Joseph Work Phone: [facility] Work Phone: 05-11-2022 14:34-0500 Respiratory rate 18 /min Dr. Marcin Joseph Work Phone: [facility] Work Phone: 05-11-2022 14:34-0500 SaO2% (BldA) [Mass fraction] 96 % Dr. Marcin Joseph Work Phone: [facility] Work Phone: 05-11-2022 14:34-0500 Systolic blood pressure 150 mm[Hg] Dr. Marcin Joseph Work Phone: [facility] Work Phone: 05-11-2022 11:19-0500 Inhaled oxygen concentration 60 % Dr. Marcin Joseph Work Phone: [facility] Work Phone: 05-11-2022 08:49-0500 Inhaled oxygen flow rate 2 L/min Dr. Marcin Joseph Work Phone: [facility] Work Phone: 05-11-2022 07:55-0500 Body weight [address] Marcin Joseph Work Phone: [facility] Work Phone: 05-10-2022 16:22-0500 Body height 172.[address] Marcin Joseph Work Phone: [facility] Work Phone: 05-08-2022 18:26-0500 Body mass index (BMI) [Ratio] 42.2 kg/m2 Dr. Marcin Joseph Work Phone: [facility] Work Phone: 05-08-2022 16:06-0500 Body temperature 98.1 [degF] Dr. Marcin Joseph Work Phone: [facility] Work Phone: 05-08-2022 16:06-0500 Diastolic blood pressure 77 mm[Hg] Dr. Marcin Joseph Work Phone: [facility] Work Phone: 05-08-2022 16:06-0500 Heart rate 98 /min Dr. Marcin Joseph Work Phone: [facility] Work Phone: 05-08-2022 16:06-0500 Inhaled oxygen flow rate 15 L/min Dr. Marcin Joseph Work Phone: [facility] Work Phone: 05-08-2022 16:06-0500 Respiratory rate 29 /min Dr. Marcin Joseph Work Phone: [facility] Work Phone: 05-08-2022 16:06-0500 SaO2% (BldA) [Mass fraction] 98 % Dr. Marcin Joseph Work Phone: [facility] Work Phone: 05-08-2022 16:06-0500 Systolic blood pressure 145 mm[Hg] Dr. Marcin Joseph Work Phone: [facility] Work Phone: 05-08-2022 13:34-0500 Inhaled oxygen concentration 50 % Dr. Marcin Joseph Work Phone: [facility] Work Phone: 05-08-2022 13:03-0500 Body height 172.[address] Marcin Joseph Work Phone: [facility] Work Phone: 05-08-2022 13:03-0500 Body mass index (BMI) [Ratio] 43.1 kg/m2 Dr. Marcin Joseph Work Phone: [facility] Work Phone: 05-08-2022 13:03-0500 Body weight 128.[address] Marcin Joseph Work Phone: [facility] Work Phone: 05-07-2022 08:08-0500 Diastolic blood pressure 64 mm[Hg] [facility] Work Phone: 05-07-2022 08:08-0500 Systolic blood pressure 117 mm[Hg] [facility] Work Phone: 05-07-2022 07:46-0500 Body temperature 98 [degF] [facility] Work Phone: 05-07-2022 07:46-0500 Heart rate 96 /min [facility] Work Phone: 05-07-2022 07:46-0500 Respiratory rate 26 /min [facility] Work Phone: 05-07-2022 07:46-0500 SaO2% (BldA) [Mass fraction] 95 % [facility] Work Phone: 05-07-2022 06:09-0500 Body height 172.72 cm [facility] Work Phone: 05-07-2022 06:09-0500 Body mass index (BMI) [Ratio] 43.4 kg/m2 [facility] Work Phone: 05-07-2022 06:09-0500 Body weight 129.72 kg [facility] Work Phone: 05-07-2022 06:09-0500 Inhaled oxygen flow rate 4 L/min [facility] Work Phone: 10-28-2021 14:00-0400 Body temperature 97.7 [degF] [facility] Work Phone: 10-28-2021 14:00-0400 Diastolic blood pressure 78 mm[Hg] [facility] Work Phone: 10-28-2021 14:00-0400 Heart rate 64 /min [facility] Work Phone: 10-28-2021 14:00-0400 SaO2% (BldA) [Mass fraction] 97 % [facility] Work Phone: 10-28-2021 14:00-0400 Systolic blood pressure 159 mm[Hg] [facility] Work Phone: 10-28-2021 11:59-0400 Body temperature 97.3 [degF] [facility] Work Phone: 10-28-2021 11:59-0400 Diastolic blood pressure 73 mm[Hg] [facility] Work Phone: 10-28-2021 11:59-0400 Heart rate 68 /min [facility] Work Phone: 10-28-2021 11:59-0400 Respiratory rate 16 /min [facility] Work Phone: 10-28-2021 11:59-0400 Systolic blood pressure 151 mm[Hg] [facility] Work Phone: 10-28-2021 11:57-0400 Body height 172.72 cm [facility] Work Phone: 10-28-2021 11:57-0400 Body mass index (BMI) [Ratio] 41.9 kg/m2 [facility] Work Phone: 10-28-2021 11:57-0400 Body weight 125.01 kg [facility] Work Phone: 10-28-2021 09:35-0400 SaO2% (BldA) [Mass fraction] 96 % [facility] Work Phone: Encounters Encounter Date Encounter Type Care Provider Facility Start: 02-09-2025 End: 02-09-2025 Emergency department patient visit Dr. Marcin Joseph MD Work Phone: -Emergency Department Work Phone: Start: 12-23-2024 End: 12-23-2024 Emergency department patient visit Dr. Marcin Joseph MD Work Phone: -Emergency Department Work Phone: Start: 09-24-2024 End: 09-24-2024 Emergency department patient visit Dr. Marcin Joseph MD Work Phone: -Emergency Department Work Phone: Start: 07-10-2023 Non-patient / Non-visit Dr. Reinaldo Joseph Work Phone: [facility] Start: 07-10-2023 End: 07-10-2023 Emergency department patient visit Dr. Marcin Joseph Work Phone: [facility] Work Phone: Start: 02-19-2023 End: 02-19-2023 [facility] Start: 05-11-2022 Non-patient / Non-visit Dr. Reinaldo Joseph Work Phone: [facility] Start: 05-11-2022 Non-patient / Non-visit Dr. Reinaldo Joseph Work Phone: [facility] Start: 05-10-2022 Non-patient / Non-visit Dr. Reinaldo Joseph Work Phone: [facility] Start: 05-10-2022 Non-patient / Non-visit Dr. Reinaldo Joseph Work Phone: [facility] Start: 05-09-2022 Non-patient / Non-visit Dr. Reinaldo Joseph Work Phone: [facility] Start: 05-09-2022 Non-patient / Non-[facility] Start: 05-08-2022 Non-patient / Non-visit Dr. Reinaldo Joseph Work Phone: [facility] Start: 05-08-2022 End: 05-11-2022 Evaluation and management of inpatient [facility]cin [facility] Start: 05-07-2022 End: 05-07-2022 Emergency department patient visit [facility] Start: 10-28-2021 End: 10-28-2021 Admission to same day surgery center [facility] Start: 06-23-2017 End: 06-30-2017 Evaluation and management of inpatient WINGKRISSY FAUSTHARY [facility] Procedures Date Procedure Procedure Detail Performing Clinician Start: 02-09-2025 Plain X-ray abdomen Dr. Marcin Joseph MD Work Phone: Start: 12-23-2024 Plain X-ray abdomen Dr. Marcin Joseph MD Work Phone: Start: 09-24-2024 CT of chest without contrast [...] FLU Antigen (Rapid) Urine culture Dr. Marcin segovia Work Phone: Plan of Treatment Date Care Activity Detail Author Start: 02-09-2025 [facility] Start: 12-23-2024 [facility] Start: 09-24-2024 [facility] Start: 07-10-2023 [facility] Start: 02-19-2023 Bacteria identified in Blood by Culture Blood Culture [facility] Start: 02-19-2023 Bacteria identified in Urine by Culture Urine Culture [facility] Start: 02-19-2023 [facility] Start: 02-19-2023 [facility] Start: 02-19-2023 Blood culture [facility] Start: 02-19-2023 [facility] Start: 05-12-2022 Swallowing Function w/Video Swallowing Function w/Video [facility] Work Phone: Start: 05-12-2022 Videoswallow [facility] Work Phone: Start: 05-11-2022 Patient discharge [facility] Work Phone: Start: 05-10-2022 [facility] Work Phone: Start: 05-10-2022 [facility] Work Phone: Start: 05-09-2022 Care planning and problem solving actions [facility] Work Phone: Start: 05-09-2022 Referral to occupational therapist [facility] Work Phone: Start: 05-09-2022 Referral to service [facility] Work Phone: Start: 05-09-2022 Speech therapy assessment [facility] Work Phone: Start: 05-09-2022 Bacteria identified in Sputum by Culture [facility] Work Phone: Start: 05-09-2022 Incentive spirometry [facility] Work Phone: Start: 05-09-2022 Consultation [facility] Work Phone: Start: 05-09-2022 Continuous positive airway pressure ventilation treatment [facility] Work Phone: Start: 05-08-2022 Cardiac monitoring [facility] Work Phone: Start: 05-08-2022 Airway suction technique [facility] Work Phone: Start: 05-08-2022 Application of intermittent pneumatic compression device [facility] Work Phone: Start: 05-08-2022 Ambulation without limitation [facility] Work Phone: Start: 05-08-2022 Assessment of risk of venous thromboembolism [facility] Work Phone: Start: 05-08-2022 Care regimes management [facility] Work Phone: Start: 05-08-2022 Inhalation therapy procedure [facility] Work Phone: Start: 05-08-2022 Insertion of catheter into peripheral vein [facility] Work Phone: Start: 05-08-2022 Oxygen therapy [facility] Work Phone: Start: 05-08-2022 Physiotherapy of chest [facility] Work Phone: Start: 05-08-2022 Providing care according to standard [facility] Work Phone: Start: 05-08-2022 Referral to service [facility] Work Phone: Start: 05-08-2022 Respiratory secretion precautions [facility] Work Phone: Start: 05-08-2022 [facility] Work Phone: Start: 05-08-2022 Following clinical pathway protocol [facility] Work Phone: Start: 05-08-2022 [facility] Work Phone: Start: 05-08-2022 Admission procedure [facility] Work Phone: Start: 05-08-2022 Verification routine [facility] Work Phone: Start: 05-08-2022 End: 05-09-2022 [facility] Work Phone: Start: 05-08-2022 End: 05-08-2022 Blood culture [facility] Work Phone: Start: 05-08-2022 Patient referral to dietitian [facility] Work Phone: Start: 05-07-2022 [facility] Work Phone: Start: 05-07-2022 End: 05-07-2022 Blood culture [facility] Work Phone: Start: 10-28-2021 Esophagogastroduodenoscopy EGD (MAC) (Not Applicable) [facility] Work Phone: Start: 10-28-2021 Blood chemistry [facility] Work Phone: Start: 10-28-2021 Patient discharge [facility] Work Phone: Anion gap measurement [facility] Work Phone: Bacteria identified in Blood by Culture Blood Culture [facility] Work Phone: Bacteria identified in Urine by Culture Urine Culture [facility] Work Phone: Blood culture [facility] Work Phone: BUN/Creatinine ratio [facility] Work Phone: Calcium [Mass/volume ] in Serum or Plasma [facility] Work Phone: Carbon dioxide, tota l [Moles/volume] in Serum or Plasma [facility] Work Phone: Chloride [Moles/volu me] in Serum or Plasma [facility] Work Phone: Creatinine [Moles/vo lume] in Serum or Plasma [facility] Work Phone: Glucose [Mass/volume ] in Serum or Plasma [facility] Work Phone: Measurement of renal function [facility] Work Phone: Patient Education [facility] Work Phone: Patient referral [facility] Work Phone: Potassium [Moles/vol ume] in Serum or Plasma [facility] Work Phone: Sodium [Moles/volume ] in Serum or Plasma [facility] Work Phone: Urea nitrogen [Mass/ volume] in Serum or Plasma [facility] Work Phone: Urine culture Urine Culture [facility] Work Phone: Immunizations Immunization Date Immunization Notes Care Provider [facility] 12-24-2019 influenza, injectabl e, quadrivalent, preservative free [facility] 12-24-2019 influenza, seasonal, injectable [facility] Work Phone: 03-02-2017 Influenza virus vaccine [facility] Payers Date Payer Category Payer Self-pay [id number] 2024 Unknown [id number] 2010 Unknown [id number] 2010 Unknown [facility] [id number] Medicaid [id number] Medicare [id number] Medicare [id number] Unknown [id number] Unknown [id number] Unknown [id number] Unknown [id number] Social History Date Type Detail Facility Start: 10-28-2021 End: 07-10-2023 Tobacco smoking status NHIS Unknown if ever smoked [facility] Start: 03-15-2020 None [facility] Start: 03-15-2020 Care Home [facility] Start: 10-08-2017 Non-smoker [facility] Start: 1950 Sex Assigned At Male [facility] Start: 09-24-2024 End: 02-09-2025 Tobacco smoking status NHIS Never smoked tobacco (finding) [facility] Sex Male [facility] Medical Equipment Procedure Code Equipment Code Equipment [...] Assessment Result Facility 05-11-2022 Functional status Bedrest [facility] Work Phone: Mental Status Date Assessment Result Facility 12-23-2024 Cognitive function Level Of Cons ciousness Awake;Alert;Appropriate [facility] Work Phone: 07-10-2023 Cognitive function Level Of Cons ciousness Awake;Alert [facility] Work Phone: 05-11-2022 Cognitive function Touch/Shaking [facility] Work Phone: 05-10-2022 Cognitive function Unable to Comprehend [facility] Work Phone: 05-07-2022 Cognitive function Level Of Cons ciousness Lethargic [facility] Work Phone: 10-28-2021 Cognitive function Voice/Name [facility] Work Phone: 10-28-2021 Cognitive function Level Of Cons ciousness Awake;Alert;Appropriate;Follow s Commands [facility] Work Phone: Clinical Notes 02-19-2023 to 02-09-2025 Note Date & Type Note Facility 02-09-2025 Radiology Diagnostic study note [facility] Imaging Services [address] [place] [address] Abdomen Single View MR#: [id number] Acct: [id number] Name: LOC MCDOWELL Rep #: [id number] : 1950 M 74 From: Delia Benavides MD PCP: Dr. Marcin Joseph MD Status: DEP E R Study:Abdomen Single View Date of Exam: 02/09/25 Exam# [id number] Ordering Dr: Jesus Alberto Webster MD PROCEDURE: ABDOMEN SINGLE VIEW 02/09/2025 REASON FOR EXAM: WITH GASTROGRAFIN FOR FEEDING TUBE PLACEMENT TECHNIQUE: Procedure Code: RADABD Modality: DX Procedure: ABDOMEN SINGLE VIEW COMPARISON: 12/23/2024. FINDINGS: Percutaneous gastrostomy tube is in good position with its tip at the level of the gastric body. Contrast was injected through the tube outlining normal gastric rugae without evidence of contrast leakage. Moderate diffuse spondylosis. Normal visualized lung bases. There is an unremarkable bowel gas pattern. There is no demonstrated free abdominal air. Normal visualized liver. Normal visualized spleen. Normal visualized kidneys. The soft tissue structures of the pelvis are unremarkable. RAD/Abdomen Single View IMPRESSION: Percutaneous gastrostomy tube is in good position with its tip at the level of the gastric body. Contrast was injected through the tube outlining normal gastric rugae without evidence of contrast leakage. [facility] CC: Dr. Tom Webster MD; Dr. 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 Marcin Joseph MD Status:REG E R Location: ED HPI History of Present Illness Chief Complaint: Other, Pain/Inj Informant: EMS and SNF Narrative Narrative: Patient is a 74-year-old male with past medical history of hypertension hyperlipidemia and previous CVA leaving him with right-sided weakness and aphasia. He has a PEG tube in place secondary to this. correction states that sometime this evening he somehow was able to remove his PEG tube. With concern the opening will stricture shut he was sent to the ER to have the PEG tube replaced. As the patient has aphasia he cannot provide any history PFSH [facility] Medical History Aphasia Apraxia Heart disease Hyperlipemia Hemiplegia Convulsions Encounter for attention to gastrostomy PEG (percutaneous endoscopic gastrostomy) adjustment/replacement/removal Dysphagia Hypertension Sleep apnea Anxiety Peripheral vascular disease Depression Diabetes Stroke/cerebrovascular accident Home Medications ?Medication ?Instructions ?Recorded ?Last Taken ?Type gemfibrozil 600 mg tablet 600 mg G-tube BIDAC CHOLESTE ROL 05/11/17 08/26/22 History clopidogrel 75 mg tablet 75 mg G-tube DAILY Blood thi nner 08/16/17 08/26/22 History atorvastatin 80 mg tablet 80 mg G-tube QHS Cholesterol 10/07/17 08/25/22 History ezetimibe 10 mg tablet 10 mg GT QHS CHOLESTEROL 10/2708/25/22 History cilostazol 100 mg tablet 100 mg G-tube BID PAD 08/26/22 History insulin glargine 100 unit/mL (3 39 unit subcut QHS DM 03/15/20 08/25/22 History mL) subcutaneous pen (Lantus Solostar U-100 Insulin) insulin lispro 100 unit/mL 20 unit subcut TIDCM DM 09/2708/26/22 History subcutaneous cartridge insulin lispro 100 unit/mL See Protocol subcut TIDCM D M 03/15/20 08/26/22 History subcutaneous cartridge aspirin 81 mg tablet,delayed 81 mg feeding tube DAILY CAD 04/25/21 08/26/22 History release citalopram 10 mg tablet 20 mg feeding tube DAILY DEP RESSION 04/25/21 08/26/22 History losartan 50 mg tablet 50 mg feeding tube DAILY HTN 04/25/21 08/26/22 History gabapentin 300 mg capsule 300 mg feeding tube TID NEUR OPATHY 08/26/22 08/26/22 History bisacodyl 10 mg rectal suppository 10 mg NJ DAILY PRN constipation 09/24/24 Unknown History levetiracetam 500 mg tablet 500 mg PO QHS 09/24/24 Unk nown History levetiracetam 750 mg tablet 750 mg PO DAILY 09/24/24 U nknown History acetaminophen 325 mg capsule 650 mg PO Q4H PRN fever o r pain 12/23/24 Unknown History acetaminophen 500 mg capsule 1,000 mg PO Q8H 12/23/24 Unknown History dextrose 40 % oral gel (Glucose 10 g PO Q15M PRN hypog lycemia 12/23/24 Unknown History Gel) glucagon HCl 1 mg solution for 1 mg IM Q20M PRN hypogl ycemia 12/23/24 Unknown History injection (Glucagon (HCl) Emergency Kit) hydrocortisone 1 % topical cream 1 applic topical BID PRN rash 12/23/24 Unknown History magnesium hydroxide 400 mg/5 mL 30 ml PO DAILY PRN con stipation 12/23/24 Unknown History oral suspension (Milk of Magnesia) mineral oil (Fleet Mineral Oil 118 ml NJ DAILY PRN con stipation 12/23/24 Unknown History enema) Allergy/AdvReac Type Severity Reaction Status Date / Time No Known Allergies Allergy Verified 12/23/24 00:25 Surgical History Status post abdominal aortic aneurysm repair Social History Smoking Status: Never smoker substance use type: does not use ROS ROS ED Review of Systems ROS Unobtainable: other Details: Unable to obtain review of systems as patient has previous CVA with global aphasia EXAM Physical Exam Const Vital Signs: 12/23/24 00:25 12/23/24 00:25 12/23/24 01:26 Temperature 98.5 F 97.9 F Temperature Source Oral Pulse Rate 66 75 Respiratory Rate 18 16 Respiratory Pattern Normal Blood Pressure 164/75 H 146/79 H Blood Pressure Mean 104 101 Pulse Ox 100 100 Positive well nourished, well developed and obese General Appearance ED: well developed Nutritional Appearance: obese HEENT HEENT Narrative: Normocephalic atraumatic Eyes PERRL and EOMs intact bilaterally General Eye ED: Negative for scleral icterus Neck supple Resp normal respiratory effort and clear to auscultation bilaterally Cardio regular rate and regular rhythm GI non-tender, non-distended and no masses GI Narrative: Abdomen is obese soft nontender and nondistended with normal active bowel sounds. No voluntary guarding or rigidity or pulsatile mass. In the left upper abdomen there is a roughly 1 cm in diameter circular hole consistent with history of PEG tube placement. There is mild bleeding at the site which correlates with the recent PEG tube removal. Auscultation: normoactive bowel sounds Palpation: soft Extremity normal to inspection Extremity Narrative: No bony deformity noted Neuro Neuro Narrative: Patient is at his baseline mental status per long-term with chronic right-sided weakness but no new deficit noted Psych Psych Narrative: Patient is at his baseline mental status Skin Skin Narrative: Small amount of bleeding noted at the PEG tube os but otherwise no surrounding secondary soft tissue findings for infection. MDM MDM MDM Narrative Medical decision making narrative: Patient arrived to ER mildly hypertensive but has a past medical history of this. He is at his baseline mental status and somehow inadvertently removed his PEG tube. He does not have signs of secondary infection such as cellulitis or abscess or intestinal perforation. Therefore I felt only need to have the PEG tube replaced as documented below. Confirmation was by gastric contents feelingthe PEG tube as well as Gastrografin study showing rugal folds. Therefore at this time as the PEG tube has been replaced the patient is at his baseline mental status there is no signs of false passage or intestinal perforation or secondary infection he is otherwise safe to return to the long-term. Patient had the PEG tube replaced. The area was cleaned with chlorhexidine overtop the PEG tube os. Sterile lidocaine jelly was then placed. Manual pressure was applied and the PEG tube was threaded to 6 cm. The balloon was filled with 20 cc of normal saline. There was return of gastric content within the PEG tube. Patient tolerated procedure well without complication. Radiography Diagnostic Testing: Clinical Impression(s) from Imaging Studies KUB X-Ray 12/23/24 01:10 IMPRESSION: G-tube tip is in the body of the stomach. Reading Location: [place] [address] KUB with Gastrografin as interpreted by the emergency medicine physician revealsrugal folds consistent with proper PEG tube insertion and no signs of perforation or false passage. Discharge Plan Triage Chief Complaint: Other, Pain/Inj ED Provider: Tarik Noriega Dx/Rx/DC Orders Clinical Impression: PEG (percutaneous endoscopic gastrostomy) adjustment/replacement/removal, Global aphasia, Hypertension, Hyperlipidemia, History of cardioembolic cerebrovascular accident (CVA), Insulin dependent diabetes mellitus Instructions: Understanding PEG Tube Placement Prescriptions: No Action gemfibrozil 600 MG tablet 600 mg G-tube BIDAC clopidogrel 75 MG tablet 75 mg G-tube DAILY Patient Comments: Blood thinner atorvastatin 80 MG tablet 80 mg G-tube QHS Patient Comments: Cholesterol ezetimibe 10 MG tablet 10 mg GT QHS insulin lispro 100 UNIT/ML cartridge 20 unit SC TIDCM insulin glargine [Lantus Solostar U-100 Insulin] 100 UNITS/ML insulin pen 39 unit SC QHS insulin lispro 100 UNIT/ML cartridge See Protocol subcut TIDCM Protocol: 6. Sliding Scale Insulin Custom Condition: mg/dl range Dose/Route: Number of Units Condition: 151-200 Dose/Route: 2 Condition: 201-250 Dose/Route: 4 Condition: 251-300 Dose/Route: 6 Condition: 301-350 Dose/Route: 8 Condition: 351-400 Dose/Route: 10 Condition: 401-600 Dose/Route: 12 Instruction: CALL MD Protocol Text: Custom Sliding Scale cilostazol 100 MG tablet 100 mg G-tube BID losartan 50 mg tablet 50 mg feeding tube DAILY citalopram 10 mg tablet 20 mg feeding tube DAILY aspirin 81 mg Tablet,Delayed Release (Dr/Ec) 81 mg feeding tube DAILY gabapentin 300 mg capsule 300 mg feeding tube TID bisacodyl 10 mg suppository 10 mg NJ DAILY PRN (Reason: constipation) levetiracetam 500 mg tablet 500 mg PO QHS levetiracetam 750 mg tablet 750 mg PO DAILY mineral oil [Fleet Mineral Oil] Enema 118 ml NJ DAILY PRN (Reason: constipation) Rx Instructions: discard any unused portion glucagon HCl [Glucagon (HCl) Emergency Kit] 1 mg recon soln 1 mg IM Q20M PRN (Reason: hypoglycemia) Rx Instructions: until target blood sugar attained dextrose [Glucose Gel] 40 % gel 10 g PO Q15M PRN (Reason: hypoglycemia) Rx Instructions: until symptoms of low blood sugar are controlled hydrocortisone 1 % cream 1 applic topical BID PRN (Reason: rash) magnesium hydroxide [Milk of Magnesia] 400 mg/5 mL suspension 30 ml PO DAILY PRN (Reason: constipation) acetaminophen 500 mg capsule 1,000 mg PO Q8H acetaminophen 325 mg capsule 650 mg PO Q4H PRN (Reason: fever or pain) Primary Care Provider: Marcin Joseph Referrals: Marcin Joseph MD [Primary Care Provider] - Print Language: Taiwanese Disposition Disposition: Home, Self Care What to do if you have Problems For any increased pain, shortness of breath, bleeding, nausea or vomiting, chestpain, or any unexpected problems, contact your Primary Care Provider. Call [facility] ([phone]) or report to the closest Emergency Room. Call 911 if necessary. 12/23/24 0138 <Electronically signed by Tarik Noriega DO> Cosigner Signature (if applicable): CC: Dr. Marcin Joseph MD ~ Signed [facility] Work Phone: [phone] [id number] Discharge summary [facility] Medical Records Department [address] [place] [address] Emergency Department Summary 12/23/24 MR#: [id number] Acct: [id number] Name: LOC MCDOWELL Rep #:[id number] : 1950 74 From: Tarik Noriega DO PCP: Dr. Marcin Joseph MD Status:REG E R Location: ED HPI History of Present Illness Chief Complaint: Other, Pain/Inj Informant: EMS and SNF Narrative Narrative: Patient is a 74-year-old male with past medical history of hypertension hyperlipidemia and previousCVA leaving him with right-sided weakness and aphasia. He has a PEG tube in place secondary to this. correction states that sometime this evening he somehow was able to remove his PEG tube. With concern the opening will stricture shut he was sent to the ER to have the PEG tube replaced. As the patient has aphasia he cannot provide any [facility] Medical History Aphasia Apraxia Heart disease Hyperlipemia Hemiplegia Convulsions Encounter for attention to gastrostomy PEG (percutaneous endoscopic gastrostomy) adjustment/replacement/removal Dysphagia Hypertension Sleep apnea Anxiety Peripheral vascular disease Depression Diabetes Stroke/cerebrovascular accident Home Medications ?Medication ?Instructions ?Recorded ?Last Taken ?Type gemfibrozil 600 mg tablet 600 mg G-tube BIDAC CHOLESTE ROL 05/11/17 08/26/22 History clopidogrel 75 mg tablet 75 mg G-tube DAILY Blood thi nner 08/16/17 08/26/22 History atorvastatin 80 mg tablet 80 mg G-tube QHS Cholesterol 10/07/17 08/25/22 History ezetimibe 10 mg tablet 10 mg GT QHS CHOLESTEROL 10/2708/25/22 History cilostazol 100 mg tablet 100 mg G-tube BID PAD 08/26/22 History insulin glargine 100 unit/mL (3 39 unit subcut QHS DM 03/15/20 08/25/22 History mL) subcutaneous pen (Lantus Solostar U-100 Insulin) insulin lispro 100 unit/mL 20 unit subcut TIDCM DM 09/2708/26/22 History subcutaneous cartridge insulin lispro 100 unit/mL See Protocol subcut TIDCM D M 03/15/20 08/26/22 History subcutaneous cartridge aspirin 81 mg tablet,delayed 81 mg feeding tube DAILY CAD 04/25/21 08/26/22 History release citalopram 10 mg tablet 20 mg feeding tube DAILY DEP RESSION 04/25/21 08/26/22 History losartan 50 mg tablet 50 mg feeding tube DAILY HTN 04/25/21 08/26/22 History gabapentin 300 mg capsule 300 mg feeding tube TID NEUR OPATHY 08/26/22 08/26/22 History bisacodyl 10 mg rectal suppository 10 mg NJ DAILY PRN constipation 09/24/24 Unknown History levetiracetam 500 mg tablet 500 mg PO QHS 09/24/24 Unk nown History levetiracetam 750 mg tablet 750 mg PO DAILY 09/24/24 U nknown History acetaminophen 325 mg capsule 650 mg PO Q4H PRN fever o r pain 12/23/24 Unknown History acetaminophen 500 mg capsule 1,000 mg PO Q8H 12/23/24 Unknown History dextrose 40 % oral gel (Glucose 10 g PO Q15M PRN hypog lycemia 12/23/24 Unknown History Gel) glucagon HCl 1 mg solution for 1 mg IM Q20M PRN hypogl ycemia 12/23/24 Unknown History injection (Glucagon (HCl) Emergency Kit) hydrocortisone 1 % topical cream 1 applic topical BID PRN rash 12/23/24 Unknown History magnesium hydroxide 400 mg/5 mL 30 ml PO DAILY PRN con stipation 12/23/24 Unknown History oral suspension (Milk of Magnesia) mineral oil (Fleet Mineral Oil 118 ml NJ DAILY PRN con stipation 12/23/24 Unknown History enema) Allergy/AdvReac Type Severity Reaction Status Date / Time No Known Allergies Allergy Verified 12/23/24 00:25 Surgical History Status post abdominal aortic aneurysm repair Social History Smoking Status: Never smoker substance use type: does not use ROS ROS ED Review of Systems ROS Unobtainable: other Details: Unable to obtain review of systems as patient has previous CVA with global aphasia EXAM Physical Exam Const Vital Signs: 12/23/24 00:25 12/23/24 00:25 12/23/24 01:26 Temperature 98.5 F 97.9 F Temperature Source Oral Pulse Rate 66 75 Respiratory Rate 18 16 Respiratory Pattern Normal Blood Pressure 164/75 H 146/79 H Blood Pressure Mean 104 101 Pulse Ox 100 100 Positive well nourished, well developed and obese General Appearance ED: well developed Nutritional Appearance: obese HEENT HEENT Narrative: Normocephalic atraumatic Eyes PERRL and EOMs intact bilaterally General Eye ED: Negative for scleral icterus Neck supple Resp normal respiratory effort and clear to auscultation bilaterally Cardio regular rate and regular rhythm GI non-tender, non-distended and no masses GI Narrative: Abdomen is obese soft nontender and nondistended with normal active bowel sounds. No voluntary guarding or rigidity or pulsatile mass. In the left upper abdomen there is a roughly 1 cm in diameter circular hole consistent with historyof PEG tube placement. There is mild bleeding at the site which correlates with the recent PEG tuberemoval. Auscultation: normoactive bowel sounds Palpation: soft Extremity normal to inspection Extremity Narrative: No bony deformity noted Neuro Neuro Narrative: Patient is at his baseline mental status per long-term with chronic right- sided weakness but no new deficit noted Psych Psych Narrative: Patient is at his baseline mental status Skin Skin Narrative: Small amount of bleeding noted at the PEG tube os but otherwise no surrounding secondary soft tissue findings for infection. MDM MDM MDM Narrative Medical decision making narrative: Patient arrived to ER mildly hypertensive but has a past medical history of this. He is at his baseline mental status and somehow inadvertently removed his PEG tube. He does not have signs of secondary infection such as cellulitis or abscess or intestinal perforation. Therefore I felt only need to have the PEG tube replaced as documented below. Confirmation was by gastric contents feelingthe PEG tube as well as Gastrografin study showing rugal folds. Therefore at this time as the PEG tube has been replaced the patient is at his baseline mental status there is no signs of false passage or intestinal perforation or secondary infection he is otherwise safe to return to the long-term. Patient had the PEG tube replaced. The area was cleaned with chlorhexidine overtop the PEG tube os.Sterile lidocaine jelly was then placed. Manual pressure was applied and the PEG tube was threaded to 6 cm. The balloon was filled with 20 cc of normal saline. There was return of gastric content within the PEG tube. Patient tolerated procedure well without complication. Radiography Diagnostic Testing: Clinical Impression(s) from Imaging Studies KUB X-Ray 12/23/24 01:10 IMPRESSION: G-tube tip is in the body of the stomach. Reading Location: [place] [address] KUB with Gastrografin as interpreted by the emergency medicine physician revealsrugal folds consistent with proper PEG tube insertion and no signs of perforation or false passage. Discharge Plan Triage Chief Complaint: Other, Pain/Inj ED Provider: Tarik Noriega Dx/Rx/DC Orders Clinical Impression: PEG (percutaneous endoscopic gastrostomy) adjustment/replacement/removal, Global aphasia, Hypertension, Hyperlipidemia, History of cardioembolic cerebrovascular accident (CVA), Insulin dependent diabetes mellitus Instructions: Understanding PEG Tube Placement Prescriptions: No Action gemfibrozil 600 MG tablet 600 mg G-tube BIDAC clopidogrel 75 MG tablet 75 mg G-tube DAILY Patient Comments: Blood thinner atorvastatin 80 MG tablet 80 mg G-tube QHS Patient Comments: Cholesterol ezetimibe 10 MG tablet 10 mg GT QHS insulin lispro 100 UNIT/ML cartridge 20 unit SC TIDCM insulin glargine [Lantus Solostar U-100 Insulin] 100 UNITS/ML insulin pen 39 unit SC QHS insulin lispro 100 UNIT/ML cartridge See Protocol subcut TIDCM Protocol: 6. Sliding Scale Insulin Custom Condition: mg/dl range Dose/Route: Number of Units Condition: 151-200 Dose/Route: 2 Condition: 201-250 Dose/Route: 4 Condition: 251-300 Dose/Route: 6 Condition: 301-350 Dose/Route: 8 Condition: 351-400 Dose/Route: 10 Condition: 401-600 Dose/Route: 12 Instruction: CALL MD Protocol Text: Custom Sliding Scale cilostazol 100 MG tablet 100 mg G-tube BID losartan 50 mg tablet 50 mg feeding tube DAILY citalopram 10 mg tablet 20 mg feeding tube DAILY aspirin 81 mg Tablet,Delayed Release (Dr/Ec) 81 mg feeding tube DAILY gabapentin 300 mg capsule 300 mg feeding tube TID bisacodyl 10 mg suppository 10 mg NJ DAILY PRN (Reason: constipation) levetiracetam 500 mg tablet 500 mg PO QHS levetiracetam 750 mg tablet 750 mg PO DAILY mineral oil [Fleet Mineral Oil] Enema 118 ml NJ DAILY PRN (Reason: constipation) Rx Instructions: discard any unused portion glucagon HCl [Glucagon (HCl) Emergency Kit] 1 mg recon soln 1 mg IM Q20M PRN (Reason: hypoglycemia) Rx Instructions: until target blood sugar attained dextrose [Glucose Gel] 40 % gel 10 g PO Q15M PRN (Reason: hypoglycemia) Rx Instructions: until symptoms of low blood sugar are controlled hydrocortisone 1 % cream 1 applic topical BID PRN (Reason: rash) magnesium hydroxide [Milk of Magnesia] 400 mg/5 mL suspension 30 ml PO DAILY PRN (Reason: constipation) acetaminophen 500 mg capsule 1,000 mg PO Q8H acetaminophen 325 mg capsule 650 mg PO Q4H PRN (Reason: fever or pain) Primary Care Provider: Marcin Joseph Referrals: Marcin Joseph MD [Primary Care Provider] - Print Language: Taiwanese Disposition Disposition: Home, Self Care What to do if you have Problems For any increased pain, shortness of breath, bleeding, nausea or vomiting, chestpain, or any unexpected problems, contact your Primary Care Provider. Call [facility] ([phone]) or report tothe closest Emergency Room. Call 911 if necessary. 12/23/24 0138 Cosigner Signature (if applicable): CC: Dr. Marcin Joseph MD ~ Signed [facility]08-15-2025 Radiology Diagnostic study note [facility] Imaging Services [address] [place] [address] Abdomen Single View (Portable) MR#: [id number] Acct: [id number] Name: LOC MCDOWELL Rep #: [id number] : 1950 M 74 From: Wanda Julian MD PCP: Dr. Marcin Joseph MD Status: REG E R Study:Abdomen Single View (Portable) Date of Exam: 12/23/24 Exam# [id number] Ordering Dr: Bhumi Noriega DO PROCEDURE: ABDOMEN SINGLE VIEW (PORTABLE) 12/23/2024 REASON FOR EXAM: S/P PEG TUBE PLACEMENT TECHNIQUE: ABDOMEN SINGLE VIEW (PORTABLE) COMPARISON: CT 08/26/2022 FINDINGS: G-tube tip overlies the body of the stomach. After injection, the stomach and duodenal bulb opacify, no evidence for contrast leakage. Nonobstructed bowel-gas pattern. RAD/Abdomen Single View (Portable) IMPRESSION: G-tube tip is in the body of the stomach. Reading Location: [place] [address] CC: Dr. Marcin Joseph MD; Tarik Noriega DO ~ Special Education Kindergarten Teacher: Signed [facility]05-17-2025 Radiology Diagnostic study note [facility] Imaging Services [address] [place], [place] [address] Chest without Contrast MR#: [id number] Acct: [id number] Name: LOC MCDOWELL Rep #: [id number] : 1950 M 74 From: Lucita Ortega MD PCP: Dr. Marcin Joseph MD Status: REG E R Study:Chest without Contrast Date of Exam: 09/24/24 Exam# [id number] Ordering Dr: Nahdi Ortega DO EXAM: CT Chest Without Intravenous Contrast CLINICAL INDICATION: RIGHT POST THORACIC INJURY TECHNIQUE: Axial computed tomography images of the chest without intravenous contrast. This CT examwas performed using one or more of the [...] hiatal hernia. 3. Lung emphysema/COPD. Reading Location: [facility] CC: Dr. Marcin Joseph MD; Dr. Nahid Ortega DO ~ Special Education Kindergarten Teacher: Signed [facility]10-12-2023 Discharge summary Author Alen Enrique [facility] February 19, 2023 1:58pm Note Date/Time February 19, 2023 1 0:29am [facility] Medical Records Department [address] [place] [id number] Emergency Department Summary 02/19/23 MR#: [id number] Acct: [id number] Name: LOC MCDOWELL Rep #:[id number] : 1950 72 From: Alen Nunez DO PCP: Dr. Marcin Joseph MD Status:REG E R Location: ED HPI History of Present Illness Chief Complaint: Shortness of Breath Narrative Narrative: Patient is a 72-year-old male who is nonverbal with global aphasia secondary to a stroke, hyperlipidemia, dysphagia, hypertension presenting with dyspnea. He is from [facility]. [facility] Medical History Anxiety Aphasia Apraxia Convulsions [...] 200 mg-200 mg-20 mg/5 mL oral susp (Tari- Lanta) 10 ml feeding tube TID PRN BLOATING [...] he recommended putting the patient onTamiflu. Chest x- ray my interpretation shows no acute process. Radiologist [...] (Auto) 61.5 Lymph % (Auto) 17.4 L [place] % (Auto) 15.0 H Eos % (Auto) [...] Clarity Clear Urine pH 5.0 Ur Specific Mccormick 1.025 Urine Protein 15 H Urine Glucose [...] Signed: Megan Meek MD at 11:11 EDT Reading Location ID and State: [facility] / [place] Tel , Service support , Discharge Plan Triage Chief Complaint: Shortness [...] your Primary Care Provider. Call [facility] ([phone]) or report to the closest Emergency Room. Call 911 if necessary. 02/19/23 1358 <Electronically signed by Alen Nunez DO> Cosigner Signature (if applicable): CC: Dr. Marcin Joseph MD ~ Signed [facility] Work Phone: Consult note Author Eddy Newman [facility] July 10, 2023 7:10pm Note Date/Time July 10, 2023 7:10 pm [facility] Medical Records Department [address] [place] [id number] Consultation - Surgical 07/10/23 1907 MR#: [id number] Acct: [id number] Name: LOC MCDOWELL Rep #:[id number] : 1950 73 From: Eddy flores MD [...] through the tract I placed anew 20 Turkmen replacement feeding tube and inflated the balloon [...] the procedure well. Eddy Newman MD Pager: [facility] [address] [place] [address], [address] [place] [address] Office: HPI Consult Data Date of Consult: 07/10/23 HPI Narrative HPI Narrative: LOC MCDOWELL, is a 73 M who presented from his long-term with nonfunctioningG-tube. Patient's G-tube broke at the end. It was placed [address] [facility] Medical History Anxiety Aphasia Apraxia Convulsions [...] 200 mg-200 mg-20 mg/5 mL oral susp (Tari- Lanta) 10 ml feeding tube TID PRN BLOATING [...] rhythm GI soft to palpation and non-tender 03/01/24 1910 <Electronically signed by Eddy Newman MD> Cosigner Signature (if applicable): CC: Dr. Marcin Joseph MD~ Signed [facility] Work Phone: Discharge summary Author Tom Webster [facility] Note Date/Time February 09, 2025 1: 59am [facility] Medical Records Department [address] [place] [address] Emergency Department Summary 02/09/25 MR#: [id number] Acct: [id number] Name: LOC MCDOWELL Rep #:[id number] : 1950 74 From: Tom Webster MD PCP: Dr. Marcin Joseph MD Status:REG E R Location: ED HPI History of Present Illness Chief Complaint: Wound Detail of Chief Complaint: Patient pulled on feeding tube long-term setting and to have it evaluate Informant: patient and EMS Onset/Context/Timing Onset: Today Context: Sudden Onset Narrative Narrative: 74-year-old male history of stroke limited speech. From extended-care facility. Has a feeding tube in. Reportedly pulled on it tonight. They sent him in to have it evaluated make sure it was still in place. Patient is an extremely limited informant. [facility] Medical History Aphasia Apraxia Heart disease Hyperlipemia Hemiplegia Convulsions Encounter for attention to gastrostomy PEG (percutaneous endoscopic gastrostomy) adjustment/replacement/removal Dysphagia Hypertension Sleep apnea Anxiety Peripheral vascular disease Depression Diabetes Stroke/cerebrovascular accident Home Medications ?Medication ?Instructions ?Recorded ?Last Taken ?Type gemfibrozil 600 mg tablet 600 mg G-tube BIDAC CHOLESTE ROL 05/11/17 08/26/22 His tory clopidogrel 75 mg tablet 75 mg G-tube DAILY Blood thi nner 08/16/17 08/26/22 History atorvastatin 80 mg tablet 80 mg G-tube QHS Cholesterol 10/07/17 08/25/22 History ezetimibe 10 mg tablet 10 mg GT QHS CHOLESTEROL 10/2708/25/22 History cilostazol 100 mg tablet 100 mg G-tube BID PAD 08/26/22 History insulin glargine 100 unit/mL (3 39 unit subcut QHS DM 03/15/20 08/25/22 History mL) subcutaneous pen (Lantus Solostar U-100 Insulin) insulin lispro 100 unit/mL 20 unit subcut TIDCM DM 09/2708/26/22 History subcutaneous cartridge insulin lispro 100 unit/mL See Protocol subcut TIDCM D M 03/15/20 08/26/22 History subcutaneous cartridge aspirin 81 mg tablet,delayed 81 mg feeding tube DAILY CAD 04/25/21 08/26/22 History release citalopram 10 mg tablet 20 mg feeding tube DAILY DEP RESSION 04/25/21 08/26/22 History losartan 50 mg tablet 50 mg feeding tube DAILY HTN 04/25/21 08/26/22 History gabapentin 300 mg capsule 300 mg feeding tube TID NEUR OPATHY 08/26/22 08/26/22 History bisacodyl 10 mg rectal suppository 10 mg NJ DAILY PRN constipation 09/24/24 Unknown History levetiracetam 500 mg tablet 500 mg PO QHS 09/24/24 Unk nown History levetiracetam 750 mg tablet 750 mg PO DAILY 09/24/24 U nknown History acetaminophen 325 mg capsule 650 mg PO Q4H PRN fever o r pain 12/23/24 Unknown History acetaminophen 500 mg capsule 1,000 mg PO Q8H 12/23/24 Unknown History dextrose 40 % oral gel (Glucose 10 g PO Q15M PRN hypog lycemia 12/23/24 Unknown History Gel) glucagon HCl 1 mg solution for 1 mg IM Q20M PRN hypogl ycemia 12/23/24 Unknown History injection (Glucagon (HCl) Emergency Kit) hydrocortisone 1 % topical cream 1 applic topical BID PRN rash 12/23/24 Unknown History magnesium hydroxide 400 mg/5 mL 30 ml PO DAILY PRN con stipation 12/23/24 Unknown History oral suspension (Milk of Magnesia) mineral oil (Fleet Mineral Oil 118 ml NJ DAILY PRN con stipation 12/23/24 Unknown History enema) Allergy/AdvReac Type Severity Reaction Status Date / Time No Known Allergies Allergy Verified 12/23/24 00:25 Surgical History Status post abdominal aortic aneurysm repair Social History Smoking Status: Never smoker substance use type: does not use ROS ROS ED ROS Narrative Unable to obtain due to the patient stroke and limited speech. Review of Systems ROS Unobtainable: due to mental status EXAM Physical Exam Narrative Exam Narrative: 74-year-old male lying in bed vital signs stable afebrile. No acute distress. No family present. H EENT exam pupils round react to light. Moist mucous members. No trauma to his face. Very very limited speech. Neck nontender. Lungs clear. Heart regular rhythm rate about 70 no murmur. Chest wall ribs nontender. Abdomen soft, nontender, nondistended, normal bowel sounds without peritoneal signs. He has a feeding tube left upper quadrant. There is a small amount of dried blood at the ostomy site. The PEG tube still appears to be in good position. Extremities nontender no deformity. Right hand has a contracture he is unable to raise his right hand or right leg from a prior stroke. Left hand and upper extremity is nontender he can raise the hand. Leftleg is nontender no edema he can raise the left leg. Neurologically he is awake. His eyes are open. I cannot understand his speech and his limited speech is a stroke and right hemiparesis. Const Vital Signs: 02/09/25 00:32 Temperature 97.8 F Temperature Source Oral Pulse Rate 74 Respiratory Rate 16 Blood Pressure 156/82 H Blood Pressure Mean 106 Pulse Ox 96 Oxygen Delivery Method Room Air MDM MDM MDM Narrative Medical decision making narrative: 74-year-old male prior stroke unable to communicate pulled on his PEG tube I think is still in good position. Radiologist demonstrated KUB with Gastrografinto see if in good position. Abdomen is benign and nontender there is no peritoneal signs. Repeat exam patient doing well at 1:56 AM. Abdomen is nontender. I will have the nurses call the extended-care facility to make sure they want nothing else evaluated since the patient is a limited informant. History & Record Review Discussion w/independent historian: Patient and Other Additional record(s) reviewed:: Prior inpatient record, Prior outpatient record,Prior ED visit and Prior labs Radiography Diagnostic Testing: KUB single view with Gastrografin shows the feeding tube remains in the stomach. Patient to be discharged back to extended-care facility. Discharge Plan Triage Chief Complaint: Wound ED Provider: Tom Webster Dx/Rx/DC Orders Clinical Impression: Visit for feeding tube placement, Diabetes mellitus type 2 in obese, History ofstroke Prescriptions: No Action gemfibrozil 600 MG tablet 600 mg G-tube BIDAC clopidogrel 75 MG tablet 75 mg G-tube DAILY Patient Comments: Blood thinner atorvastatin 80 MG tablet 80 mg G-tube QHS Patient Comments: Cholesterol ezetimibe 10 MG tablet 10 mg GT QHS insulin lispro 100 UNIT/ML cartridge 20 unit SC TIDCM insulin glargine [Lantus Solostar U-100 Insulin] 100 UNITS/ML insulin pen 39 unit SC QHS insulin lispro 100 UNIT/ML cartridge See Protocol subcut TIDCM Protocol: 6. Sliding Scale Insulin Custom Condition: mg/dl range Dose/Route: Number of Units Condition: 151-200 Dose/Route: 2 Condition: 201-250 Dose/Route: 4 Condition: 251-300 Dose/Route: 6 Condition: 301-350 Dose/Route: 8 Condition: 351-400 Dose/Route: 10 Condition: 401-600 Dose/Route: 12 Instruction: CALL MD Protocol Text: Custom Sliding Scale cilostazol 100 MG tablet 100 mg G-tube BID losartan 50 mg tablet 50 mg feeding tube DAILY citalopram 10 mg tablet 20 mg feeding tube DAILY aspirin 81 mg Tablet,Delayed Release (Dr/Ec) 81 mg feeding tube DAILY gabapentin 300 mg capsule 300 mg feeding tube TID bisacodyl 10 mg suppository 10 mg NJ DAILY PRN (Reason: constipation) levetiracetam 500 mg tablet 500 mg PO QHS levetiracetam 750 mg tablet 750 mg PO DAILY mineral oil [Fleet Mineral Oil] Enema 118 ml NJ DAILY PRN (Reason: constipation) Rx Instructions: discard any unused portion glucagon HCl [Glucagon (HCl) Emergency Kit] 1 mg recon soln 1 mg IM Q20M PRN (Reason: hypoglycemia) Rx Instructions: until target blood sugar attained dextrose [Glucose Gel] 40 % gel 10 g PO Q15M PRN (Reason: hypoglycemia) Rx Instructions: until symptoms of low blood sugar are controlled hydrocortisone 1 % cream 1 applic topical BID PRN (Reason: rash) magnesium hydroxide [Milk of Magnesia] 400 mg/5 mL suspension 30 ml PO DAILY PRN (Reason: constipation) acetaminophen 500 mg capsule 1,000 mg PO Q8H acetaminophen 325 mg capsule 650 mg PO Q4H PRN (Reason: fever or pain) Primary Care Provider: Marcin Joseph Referrals: Marcin Joseph MD [Primary Care Provider, Family Practice] - As Needed Activity Restrictions/Additional Instructions: We evaluated the feeding tube with an x-ray and Gastrografin. The feeding tubesin good position. You may use it. Print Language: Taiwanese Disposition Disposition: Home, Self Care What to do if you have Problems For any increased pain, shortness of breath, bleeding, nausea or vomiting, chestpain, or any unexpected problems, contact your Primary Care Provider. Call [facility] ([phone]) or report to the closest Emergency Room. Call 911 if necessary. 02/09/25 0159 <Electronically signed by Tom Webster MD> Cosigner Signature (if applicable): CC: Dr. Marcin Joseph MD ~ Signed [facility] Work Phone: Evaluation note* Diagnosis Onset Date Resolution Status PEG (percutaneous endoscopic gastrostomy) adjustment/replacement/removal acute [facility] Work Phone: Evaluation noteNo assessment information available [facility] Work Phone: Evaluation note* Diagnosis Onset Date Resolution Status Acute respiratory failure with hypoxia acute Influenza B acute UTI (urinary tract infection) acute [facility] Work Phone: Evaluation note* Diagnosis Onset Date Resolution Status Acute respiratory failure with hypoxia acute DARRELL (acute kidney injury) ac shreya Influenza B acute UTI (urinary tract infection) acute [facility] Work Phone: Evaluation note* Diagnosis Onset Date Resolution Status PEG tube malfunction acute [facility] Work Phone: Hospital Discharge instructions Additional Instructions CT chest, no fractures noted of shoulder or right sided ribs. Abnormal contours of ribs left side 8 through 10 per radiology. Clinically no tenderness in this area for concerns for fracture.[facility] Work Phone: Hospital Discharge instructionsAdditional Instructions We evaluated the feeding tube with an x-ray and Gastrografin. The feeding tubes in good position. You may use it.[facility] Work Phone: Reason for referral (narrative)No reason for referral information availableWOhioHealth [facility] Work Phone: Summary Purpose Family History [...] Yes October 28, 2021 9:40am Power of [employer]ables Worker Yes October 28 9:40am Name of Medical Power of [employer] Worker mary kate mcdowell October 28, 2021 9:40am Advance Directive Response Recorded Date/ Time Advance Directives Yes June 8:36am Living Will Yes May 07 6:15am Power of [employer]ables Worker No May 07, 2022 6:15am Advance Directive Response Recorded Date/ Time Advance Directives Yes June 8:36am Living Will No May 08 4:42pm Power of [employer]ables Worker No May 08, 2022 4:42pm Advance Directive Response Recorded Date/ Time Advance Directives Yes June 9:36am Living Will Yes February 19 11:03am Power of [employer]ables Worker No February 19, 2023 11:03am Advance Directive Response Recorded Date/ Time Name of Medical Power of [employer]ables Worker MARY KATE MCDOWELL July 10, 2023 3:48pm Advance Directives Yes June 8:36am Living Will Yes February 19 10:03am Power of Castables Worker Yes July 09 3:48pm Advance Directive Response Recorded Date/ Time Advance Directives Yes June 9:36am Advance Directive Response Recorded Date/ Time Do you have a Healthcare Power of Castables Worker? Yes February 09, 2025 12:34am Advance Directives Yes June 9:36am Chief Complaint [...] Date wound September 24, 2024 9:51a m Chief Complaint Admit Date wound September 24, 2024 9:51a m pulled peg out December 23, 2024 12 :24am Chief Complaint Admit Date pulled peg out December 23, 2024 12 :24am peg tube pulled out February 09, 2025 12 :29am Additional Source Comments (unrecognized sect ion and content) No Status Records FoundNo Status Records FoundNo Status Records FoundNo Status Records Found INFORMATION SOURCE (unrecogn ized section and content) DATE CREATED AUTHOR 10/30/2017 [facility] DATE CREATED AUTHOR AUTHOR'S ORGANIZ ATION 10/30/2017 [facility] DATE CREATED AUTHOR AUTHOR'S ORGANIZ ATION 11/28/2019 [facility] DATE CREATED AUTHOR AUTHOR'S ORGANIZ ATION 02/19/2025 [facility] Goals (unrecognized section and content) Goals may [...] September 24, 2024 End: September 24, 2024 Team Status: Active Member Role/Relationship Status Dates Dr. Marcin Joseph MD Primary Care Provider Active Team Status: Inactive Member Role/Relationship Status Dates Dr. Marcin Joseph MD Primary Care Provider Active Start: September 24, 2024 End: September 24, 2024 Dr. Nahid Ortega DO Attending Provider Active Start : September 24, 2024 End: September 24, 2024 Dr. Nahid Ortega DO Emergency Provider Active Start : September 24, 2024 End: September 24, 2024 Team Status: Inactive Member Role/Relationship Status Dates Dr. Marcin Joseph MD Primary Care Provider Active Start: December 23, 2024 End: December 23, 2024 Dr. Tarik Noriega DO Emergency Provider Active Start: December 23, 2024 End: December 23, 2024 Team Status: Active Member Role/Relationship Status Dates Dr. Marcin Joseph MD Primary care physician Active Team Status: Inactive Member Role/Relationship Status Dates Dr. Marcin Joseph MD Primary care physician Active Start: December 23, 2024 End: December 23, 2024 Dr. Tarik Noriega DO Attending physician Active Start: December 23, 2024 End: December 23, 2024 Dr. Tarik Noriega DO Emergency Department Physician A ctive Start: December 23, 2024 End: December 23, 2024 Team Status: Inactive Member Role/Relationship Status Dates Dr. Marcin Joseph MD Primary care physician Active Start: February 09, 2025 End: February 09, 2025 Dr. Tom Webster MD Emergency Department Physician Ac tive Start: February 09, 2025 End: February 09, 2025 FOR RECORDS PERTAINING TO PATIENTS WHO ARE [...] BE BASED ON THE PRIMARY CLINICAL RECORDS. [facility]. provides no warranty or guarantee of the accuracy or completeness of information in this document.
--- NOTE | 2025-03-04 08:20 | RAD_ITS ---
PROCEDURE: ABDOMEN SINGLE VIEW (PORTABLE) 03/04/2025 REASON FOR EXAM: PEG TUBE PLACEMENT TECHNIQUE: Procedure Code: RADABD_P Modality: DX Procedure: ABDOMEN SINGLE VIEW (PORTABLE) COMPARISON: 02/09/2025. FINDINGS: Single AP supine view of the upper abdomen was provided. A percutaneous PEG tube is noted with its tip superimposed over the stomach. Contrast material is seen within a single loop of small bowel, confirming peg tube placement within the GI tract. RAD/Abdomen Single View (Portable) IMPRESSION: As above. Reading Location: [id number]
[2025-03-04 08:52] VITALS: BP 148/66; PULSE 87; RESP 16; O2SAT 100
[2025-03-04 10:12] VITALS: BP 151/22; PULSE 64; RESP 18; TEMP 36.3; O2SAT 99
--- NOTE | 2025-03-04 10:17 | ED.RN ---
called Juan Francisco to give report to nurse. informed of PEG tube replaced.
== END 2025-03-04 11:06 | disposition home or self-care (01) ==
PROVIDERS: Emergency Provider Emergency Medicine; PCP Family Medicine; Visit Provider Emergency Medicine
DX: K94.23 Gastrostomy malfunction (principal); K94.29 Other complications of gastrostomy; E11.9 Type 2 diabetes mellitus without complications; Z79.4 Long term (current) use of insulin; Y73.2 Prosthetic and other implants, materials and accessory gastroenterology and urology devices associated with adverse incidents; I10 Essential (primary) hypertension; E78.5 Hyperlipidemia, unspecified; R47.01 Aphasia; Z79.01 Long term (current) use of anticoagulants; Z79.899 Other long term (current) drug therapy; Z79.82 Long term (current) use of aspirin
CPT/HCPCS: 43762; 74018; 99284